=== PATIENT | female | born 1950 | race Caucasian/White ===

== ENCOUNTER 2022-12-26 08:58 | Outpatient (OUT) | payer MEDICARE, OTHER, SELFPAY ==
--- NOTE | 2022-12-26 09:02 | VEIN_ITS ---
Patient: JB ESTRELLA Exam Date: 12/26/2022 : 1950 Gender:F Ordering : DR REINA TAN M.D. Admission #: [id number] Family : Order #: [id number] CLICK HERE TO VIEW EXAM RADIOLOGY REPORT PROCEDURE: VC EXT VENOUS LT LIMITED COMPARISON: None. INDICATIONS: Phlebitis of superficial veins of lt lower extremity I80.02 TECHNIQUE: Lower extremity craven scale and Duplex Doppler evaluation of the deep venous system from the inguinal ligament through the calf veins. FINDINGS: REGION: Left lower extremity. THROMBI: Negative for DVT. COMPRESSIBILITY: Normal compressibility. FLOW: Areas of no flow. OTHER: CONCLUSION: 1. Resolution of previously seen left lower extremity deep vein thrombus. Dictated by: Aashish Gil M.D. on 12/27/2022 at 09:46 Approved by: Aashish Gil M.D. on 12/27/2022 at 09:48
--- NOTE | 2022-12-26 09:10 | VEIN_ITS ---
Patient: JB ESTRELLA Exam Date: 12/26/2022 : 1950 Gender:F Ordering : DR REINA TAN M.D. Admission #: [id number] Family : Order #: [id number] CLICK HERE TO VIEW EXAM RADIOLOGY REPORT PROCEDURE: VC [facility] - OFFICE VISIT FOLLOW UP COMPARISON: None. PROGRESS NOTES: The patient reports mild edema within lower left leg with slight improvement compared to prior several days. There has been interval reduction in varicosities. The patient has followed our recommendations to walk 20-30 minutes once or twice per day since the procedure. Physical exam demonstrates marked decrease in originally seen varicosities of the right and left leg. Persistent spider veins are identified along the legs bilaterally. Review of the ultrasound performed the same day demonstrates occlusive thrombus extending throughout the treated vein, see separate report, consistent with a successful ablation. No thrombus extending into or beyond the saphenofemoral junction. The patient expressed a desire to proceed with treatment of spider veins. The patient was informed that treatment was a process and would require several procedures/sessions. IMPRESSION: 1. Resolution of previously seen short segment of deep vein thrombus within the left leg. 2. Persistent spider veins and mild left lower extremity edema . PLAN: 1. Discontinuation of once a day aspirin since DVT has resolved. 2. Mild lower left leg edema. Patient will resume wearing of compression stocking to help relieve edema. 3. Sclerotherapy for bilateral spider veins. Nurse notes, history and physical were reviewed and confirmed, see attached forms. The nurse was present throughout the physical exam and consultation Dictated by: Aashish Gil M.D. on 12/27/2022 at 08:23 Approved by: Aashish Gil M.D. on 12/27/2022 at 08:27
== END 2022-12-26 08:59 ==
PROVIDERS: PCP Radiology Diagnostic Radiology; Visit Provider Radiology Diagnostic Radiology
DX: I83.813 Varicose veins of bilateral lower extremities with pain (principal); I87.8 Other specified disorders of veins; R60.0 Localized edema
CPT/HCPCS: 93971; G0463

== ENCOUNTER 2022-12-27 07:58 | Outpatient (OUT) | payer MEDICARE, OTHER, SELFPAY ==
--- NOTE | 2022-12-27 08:01 | VEIN_ITS ---
[address] [address] Patient Name: JB ESTRELLA MRN: [id number] date: 1950 Sex: F Assigned Patient Location: Current Patient Location: Accession/Order Number: [id number] Exam Date: 12/27/2022 08:01 Report Date: 12/27/2022 12:11 At the request of: REINA TAN Procedure: VC INJ Sclerosing SOLMULT Vein EXAMINATION: VC INJ Sclerosing SOLMULT Vein HISTORY: painful varicose veins I83.813 COMPARISON: No relevant comparison available. TECHNIQUE: The risks and benefits of the procedure were explained at length to the patient and informed written consent was obtained. Efe Hoskins RN was present and assisted. The procedure was performed under sterile technique. The patient's leg was wrapped with Coban and postprocedural verbal and written instructions provided. SCLEROSANT: 2 cc, 0.5% polidocanol VEIN(S) INJECTED: 22 veins in the left leg VISUALIZATION: Ultrasound was not used to visualize the sclerosant ANESTHESIA: Supercooled air COMPLICATIONS: None IMPRESSION: Technically successful sclerotherapy as described Electronically authenticated by: HARRISON GUADARRAMA Date: 12/27/2022 12:11
== END 2022-12-27 07:59 ==
PROVIDERS: PCP Radiology Diagnostic Radiology; Visit Provider Radiology Diagnostic Radiology
DX: I83.813 Varicose veins of bilateral lower extremities with pain (principal)
CPT/HCPCS: 36471

== ENCOUNTER 2022-12-30 11:58 | Outpatient (OUT) | payer MEDICARE, OTHER, SELFPAY ==
--- NOTE | 2022-12-30 12:03 | XR_ITS ---
The [address] [address] Patient Name: JB ESTRELLA MRN: [id number] date: 1950 Sex: F Assigned Patient Location: [facility] Current Patient Location: [facility] Accession/Order Number: [id number] Exam Date: 12/30/2022 12:10 Report Date: 12/30/2022 16:01 At the request of: TAHIR WHEELER Procedure: XR cervical spine w flex/ext EXAMINATION: XR cervical spine w flex/ext HISTORY: Cervical Spondylosis M47.812 COMPARISON: No relevant comparison available. FINDINGS: BONES: Reversal of the normal lordotic curvature of the cervical spine. Minimal grade 1 anterolisthesis of C4 on 5. No change in alignment during flexion and extension. Moderate degenerative facet arthropathy C2-3 through C6-7 resulting in bone encroachment on the neural foramen, left side greater than right. DISC SPACES: C3-4 mild narrowing. C4-5, C6-7 moderate narrowing. C5-6 marked narrowing. PARASPINOUS: Negative. No paraspinous abnormality is seen. OTHER: Negative. IMPRESSION: 1. Marked degenerative change of the cervical spine. 2. No appreciable acute abnormality. Electronically authenticated by: HARRISON GUADARRAMA Date: 12/30/2022 16:01
== END 2022-12-30 11:59 ==
PROVIDERS: PCP Internal Medicine; Visit Provider Internal Medicine
DX: M47.812 Spondylosis without myelopathy or radiculopathy, cervical region (principal)
CPT/HCPCS: 72052

== ENCOUNTER 2023-01-07 07:59 | Outpatient (OUT) | payer MEDICARE, OTHER, SELFPAY ==
--- NOTE | 2023-01-07 08:41 | VEIN_ITS ---
[address] [address] Patient Name: JB ESTRELLA MRN: [id number] date: 1950 Sex: F Assigned Patient Location: Current Patient Location: Accession/Order Number: [id number] Exam Date: 01/07/2023 08:00 Report Date: 01/07/2023 11:04 At the request of: REINA TAN Procedure: VC INJ Sclerosing SOLMULT Vein EXAMINATION: VC INJ Sclerosing SOLMULT Vein HISTORY: Pain due to varicose veins of bilateral legs I83.813 COMPARISON: No relevant comparison available. TECHNIQUE: The risks and benefits of the procedure were explained at length to the patient and informed written consent was obtained. Efe Hoskins RN was present and assisted. The procedure was performed under sterile technique. The patient's leg was wrapped with Coban and postprocedural verbal and written instructions provided. SCLEROSANT: 2 cc, 0.5% polidocanol VEIN(S) INJECTED: 32 veins in the right leg VISUALIZATION: Ultrasound was not used to visualize the sclerosant ANESTHESIA: Supercooled air COMPLICATIONS: None IMPRESSION: Technically successful sclerotherapy as described Electronically authenticated by: HARRISON GUADARRAMA Date: 01/07/2023 11:04
== END 2023-01-07 08:00 ==
PROVIDERS: PCP Internal Medicine; Visit Provider Radiology Diagnostic Radiology
DX: I83.813 Varicose veins of bilateral lower extremities with pain (principal)
CPT/HCPCS: 36471

== ENCOUNTER 2023-01-16 09:57 | Outpatient (OUT) | payer MEDICARE, OTHER, SELFPAY ==
--- NOTE | 2023-01-16 | VEIN_ITS ---
[address] [address] Patient Name: JB ESTRELLA MRN: [id number] date: 1950 Sex: F Assigned Patient Location: Current Patient Location: Accession/Order Number: [id number] Exam Date: 01/16/2023 09:30 Report Date: 01/16/2023 11:15 At the request of: REINA TAN Procedure: VC INJ Sclerosing SOLMULT Vein EXAMINATION: VC INJ Sclerosing SOLMULT Vein HISTORY: Pain due to varicose veins of bilateral legs I83.813 The risks and benefits of the procedure were explained at length to the patient and informed written consent was obtained. The procedure was performed under sterile technique. The patient's leg was wrapped with Coban and postprocedural verbal and written instructions provided. Efe Hoskins RN was present and assisted. SCLEROSANT: 2mL 0.5% Polidocanol. VEIN(S) INJECTED: 21 veins in the left leg VISUALIZATION: Ultrasound was not used to visualize the sclerosant ANESTHESIA: Supercooled air. COMPLICATIONS: None Electronically authenticated by: HARRISON GUADARRAMA Date: 01/16/2023 11:15
== END 2023-01-16 09:58 | disposition home or self-care (01) ==
LOC: VC 09:57
PROVIDERS: PCP Internal Medicine; Visit Provider Radiology Diagnostic Radiology
DX: I83.813 Varicose veins of bilateral lower extremities with pain (principal)
CPT/HCPCS: 36471

== ENCOUNTER 2023-01-24 06:44 | Outpatient (OUT) | payer MEDICARE, OTHER, SELFPAY ==
--- NOTE | 2023-01-24 06:48 | MM_ITS ---
Patient: JB ESTRELLA Exam Date: 01/24/2023 : 1950 Gender:F Ordering : DR Alden Jamison D.O. Admission #: [id number] Family : Order #: [id number] CLICK HERE TO VIEW EXAM RADIOLOGY REPORT PROCEDURE: MM TOMOSYNTHESIS SCREENING BI COMPARISON: MG MAMM SCREEN 3D TITA CAD, 01/17/2021. MG MAMM SCREEN 3D TITA CAD, 01/21/2022. INDICATIONS: Screening Calculator Name NCI Breast Cancer Risk Assessment Tool 5 Year Breast Cancer Risk 3.70% Lifetime Breast Cancer Risk 8.90% Personal Breast Cancer No Personal Ovarian Cancer No Treatments None Family Cancers Sister with breast cancer at age 51; Mother with lung cancer at age 62. LOCATION: [facility] BREAST COMPOSITION: Scattered areas fibroglandular density. FINDINGS: DIAGNOSTIC CATEGORY 2--BENIGN FINDING. NO CHANGE FROM COMPARISON. Scattered benign-appearing nodules are present. Scattered benign-appearing calcifications are present. Scattered benign-appearing lymph nodes are present. RIGHT BREAST: No significant suspicious finding. LEFT BREAST: No significant suspicious finding. RECOMMENDATIONS: ROUTINE MAMMOGRAM AND CLINICAL EVALUATION IN 12 MONTHS. PLEASE NOTE: A NORMAL MAMMOGRAM DOES NOT EXCLUDE THE POSSIBILITY OF BREAST CANCER. A CLINICALLY SUSPICIOUS PALPABLE LUMP SHOULD BE BIOPSIED. Dictated by: Gonzalo Joseph MD on 01/24/2023 at 08:28 Approved by: Gonzalo Joseph MD on 01/24/2023 at 09:03
== END 2023-01-24 06:45 | disposition home or self-care (01) ==
LOC: MAMMO 06:44
PROVIDERS: PCP Internal Medicine; Visit Provider Internal Medicine
DX: Z12.31 Encounter for screening mammogram for malignant neoplasm of breast (principal); Z80.3 Family history of malignant neoplasm of breast; Z80.1 Family history of malignant neoplasm of trachea, bronchus and lung
CPT/HCPCS: 77063; 77067

== ENCOUNTER 2023-03-30 12:07 | Emergency (ER) | payer MEDICARE, OTHER, SELFPAY ==
[2023-03-30 12:18] VITALS: BP 126/82; PULSE 85; RESP 18; TEMP 36.6; O2SAT 94; BMI 29.5
--- NOTE | 2023-03-30 12:27 | ED.GENADUL1 ---
HPI - General Adult General Chief complaint: Urogenital-Female Stated complaint: COUGH COVID+ Time Seen by Provider: 03/30/23 12:08 Source: patient Mode of arrival: walk-in History of Present Illness HPI narrative: patient developed dark urine 3 days ago - the same day she developed cough and muscle aches. She took a covid test this morning and tested positive. She continues to have dark urine so she came tot he ED to get evaluated. She denied and chest pain, shortness of breath and states her covid symptoms are very mild . No prior history of dark urine. No flank pain, abdominal pain, nausea or vomiting. She has some chronic urinary incontinence from a leaky bladder for which she sees a local urologist. Related Data Previous Rx's Medication Instructions Recorded ciprofloxacin HCl 500 mg tablet 500 mg PO BID #10 tabs 03/30/23 (Cipro) Allergies Allergy/AdvReac Type Severity Reaction Status Date / Time No Known Drug Allergies Allergy Verified 03/30/23 12:17 [facility] Social History Smoking status: Current every day smoker Exam Narrative Exam Narrative: Nurses notes and vital signs reviewed and patient is not hypoxic. afebrile General: Well-appearing and in no apparent distress. Skin: Warm, dry, no pallor noted. No rash. Head: Normocephalic, atraumatic. Neck: Supple, non-tender. No meningismus or cervical lymphadenopathy Eye: Pupils are equal, round and EOMI. No scleral icterus. Cardiovascular: Regular Rate and Rhythm without murmur, gallop or rub. Respiratory: No accessory muscle use or respiratory distress. Lungs are clear to auscultation, no wheezing, rales or rhonchi Chest Wall: no tenderness Back: No CVA tenderness Musculoskeletal: normal ROM GI: Abdomen is soft, non-distended. Normal bowel sounds. No masses appreciated. No tenderness to palpation. No rebound, guarding, or rigidity noted. Neurological: A&O x4. No cranial nerve dysfunction observed. No truncal ataxia. Moves all extremities. Sensation intact. Psychiatric: Cooperative and interactive. Normal mood and affect. Constitutional Vital Signs, click to edit/add: Last Vital Signs Temp 97.9 F 03/30/23 12:18 Pulse 85 03/30/23 12:18 Resp 18 03/30/23 12:18 BP 126/82 03/30/23 12:18 Pulse Ox 94 L 03/30/23 12:18 Course Vital Signs Vital signs: Vital Signs Temperature 97.9 F 03/30/23 12:18 Pulse Rate 85 03/30/23 12:18 Respiratory Rate 18 03/30/23 12:18 Blood Pressure 126/82 03/30/23 12:18 Pulse Oximetry 94 L 03/30/23 12:18 Temperature 97.9 F 03/30/23 12:18 Pulse Rate 85 03/30/23 12:18 Respiratory Rate 18 03/30/23 12:18 Blood Pressure 126/82 03/30/23 12:18 Pulse Oximetry 94 L 03/30/23 12:18 Medical Decision Making MDM Narrative Medical decision making narrative: urine obtained and sent for testing. blood drawn to check renal function. Patient has an acute UTI. BUN elevated at 25, normal Cr. Patient informed of results and discharged home with a prescription for Cipro. Patient advised to rest, stay at home, practice social distancing, take Motrin and Tylenol for pain and fever if not allergic, stay well hydrated with Gatorade or similar drinks if vomiting or eat as tolerated if not and take any meds as prescribed. Reviewed reasons to return including rapid increase in respiratory rate, shortness of breath, confusion, inability to keep down sips of swallowed liquids for more than 24 hours. Asked patient to encourage any ill contacts to stay home and practice similar advice. Lab Data Lab results reviewed: Yes I reviewed the patient's lab results Labs: Lab Results 03/30/23 03/30/23 Range/Units 12:30 12:35 Sodium 139 (136-145) mmol/L Potassium 3.8 (3.5-5.1) mmol/L Chloride 104 (98-107) mmol/L Carbon Dioxide 27.6 (21.0-32.0) mmol/L Anion Gap 11.2 BUN 25.0 H (7.0-18.0) mg/dL Creatinine 0.67 (0.55-1.02) mg/dL Est GFR ( Amer) >60 (>=60) Est GFR (Non-Af Amer) >60 (>=60) BUN/Creatinine Ratio 37.3 Glucose 96 (74-106) mg/dL Calcium 8.8 (8.5-10.1) mg/dL Urine Color Dk. yellow (YELLOW) Urine Clarity Clear (CLEAR) Urine pH 5.5 (5.0-9.0) Ur Specific [place] >=1.030 A (1.005-1.025) Urine Protein 100 A (NEG/TRACE) mg/dL Urine Glucose (UA) Negative (NEGATIVE) mg/dL Urine Ketones Trace A (NEGATIVE) mg/dL Urine Occult Blood Large A (NEGATIVE) Urine Nitrite Negative (NEGATIVE) Urine Bilirubin Moderate A (NEGATIVE) Urine Urobilinogen 4.0 A (0.2-1.0) EU/dL Ur Leukocyte Esterase Trace A (NEGATIVE) Urine RBC 50-75 A (0-2) #/HPF Urine WBC 2-5 A (NONE SEEN) #/HPF Ur Squamous Epith Cells Few A (NONE/RARE) #/LPF Urine Crystals None seen (None Seen) #/HPF Urine Bacteria Moderate A (NONE SEEN) #/HPF Urine Casts None seen (NONE SEEN) #/LPF Urine Mucus Trace A (NONE SEEN) Ur Culture Indicated? Yes Discharge Plan Discharge Chief Complaint: Urogenital-Female Clinical Impression: Urinary tract infection, COVID-19 Patient Disposition: Home, Self-Care Time of Disposition Decision: 13:14 Prescriptions / Home Meds: New ciprofloxacin HCl [Cipro] 500 mg tablet 500 mg PO BID Qty: 10 0RF Instructions: Urinary Tract Infection in Women (ED), COVID-19 (Coronavirus Disease 2019) (ED) Stand Alone Forms: Portal Instructions Referrals: Alden Jamison DO [Primary Care Provider] - 1 week
[2023-03-30 12:45] LABS: Bilirubin Urine MODERATE (NEGATIVE); Blood Urine LARGE (NEGATIVE); Clarity Urine CLEAR (CLEAR); Color Urine DK. YELLOW (YELLOW); Glucose Urine UA NEGATIVE (NEGATIVE); Ketones Urine TRACE mg/dL (NEGATIVE); Leukocyte Esterase Urine TRACE (NEGATIVE); Nitrite Urine NEGATIVE (NEGATIVE); Protein Urine 100 mg/dL (NEG/TRACE); Specific Gravity Urine >=1.030 (1.005-1.025); pH Urine 5.5 (5.0-9.0)
[2023-03-30 12:46] LABS: Urine Microscopic Indicated YES
[2023-03-30 12:51] LABS: Anion Gap 11.2; BUN Creatinine Ratio 37.3; Calcium 8.8 mg/dL (8.5-10.1); Carbon Dioxide 27.6 mmol/L (21.0-32.0); Chloride 104 mmol/L (98-107); Estimated GFR (African America >60 (>=60); Estimated GFR (Non-African Ame >60 (>=60); Glucose 96 mg/dL (74-106); Potassium 3.8 mmol/L (3.5-5.1); Sodium 139 mmol/L (136-145)
[2023-03-30 12:57] LABS: Bacteria Urine MODERATE #/HPF (NONE SEEN); Cast Seen? NONE SEEN #/LPF (NONE SEEN); Crystals Seen? None Seen #/HPF (None Seen); Mucus Urine TRACE (NONE SEEN); RBC Urine 50-75 #/HPF (0-2); Urine Culture Indicated YES
[2023-03-30 12:58] LABS: Squamous Epithelial Cell Urine FEW #/LPF (NONE/RARE)
== END 2023-03-30 13:22 | disposition home or self-care (01) ==
PROVIDERS: Emergency Provider Emergency Medicine; PCP Internal Medicine
DX: N39.0 Urinary tract infection, site not specified (principal); U07.1 COVID-19; F17.210 Nicotine dependence, cigarettes, uncomplicated
CPT/HCPCS: 36415; 80048; 81001; 87086; 99283

== ENCOUNTER 2023-04-15 12:50 | Emergency (ER) | payer MEDICARE, OTHER, SELFPAY ==
[2023-04-15 12:54] VITALS: BP 168/80; PULSE 57; RESP 18; TEMP 37.1; O2SAT 99; BMI 36.4
[2023-04-15 13:10] LABS: Bilirubin Urine NEGATIVE (NEGATIVE); Blood Urine LARGE (NEGATIVE); Color Urine LT. YELLOW (YELLOW); Glucose Urine UA NEGATIVE (NEGATIVE); Ketones Urine TRACE mg/dL (NEGATIVE); Leukocyte Esterase Urine TRACE (NEGATIVE); Nitrite Urine NEGATIVE (NEGATIVE); Protein Urine NEGATIVE (NEG/TRACE); Specific Gravity Urine >=1.030 (1.005-1.025); Urobilinogen Urine 0.2 EU/dL (0.2-1.0); pH Urine 5.5 (5.0-9.0)
[2023-04-15 13:12] LABS: Clarity Urine SLIGHTLY CLOUDY (CLEAR)
--- NOTE | 2023-04-15 13:17 | XR_ITS ---
The [address] [address] Patient Name: JB ESTRELLA MRN: [facility]:[id number] date: 1950 Sex: F Assigned Patient Location: ER Current Patient Location: ER Accession/Order Number: [id number] Exam Date: 04/15/2023 13:50 Report Date: 04/15/2023 14:20 At the request of: ABIGAIL CANNON Procedure: XR lumbar spine 2-3V EXAM: XR lumbar spine 2-3V HISTORY: atraumatic pain COMPARISON: None. TECHNIQUE: 2 views FINDINGS/IMPRESSION: Satisfactory alignment. Maintained vertebral body heights. Multilevel endplate degenerative changes and disc disease. No acute fracture or significant subluxation. Scattered calcified atherosclerotic disease of aorta. Electronically authenticated by: DALIA HERRON Date: 04/15/2023 14:20
[2023-04-15 13:18] LABS: Bacteria Urine NONE SEEN #/HPF (NONE SEEN); Calcium Oxalate Crystals Urine MODERATE; Cast Seen? NONE SEEN #/LPF (NONE SEEN); Crystals Seen? Seen #/HPF (None Seen); Mucus Urine NONE SEEN (NONE SEEN); RBC Urine 0-2 #/HPF (0-2); Squamous Epithelial Cell Urine RARE #/LPF (NONE/RARE); Urine Culture Indicated NO; WBC Urine 0-2 #/HPF (NONE SEEN)
--- NOTE | 2023-04-15 13:18 | ED_ITS ---
HPI - General Adult General Chief complaint: Urogenital-Female Stated complaint: BACK PAIN Time Seen by Provider: 04/15/23 12:58 Source: patient Mode of arrival: walk-in Limitations: no limitations History of Present Illness HPI narrative: 73-year-old female presented to the emergency Department for left lower back pain. She recently completed a five day course of Cipro for a urinary tract infection and her symptoms seemed to have resolved. Now she is urinating frequently and has this left lower back pain. No trauma or unusual activity and it doesn't radiate and it's moderate. She's had these symptoms for one or two days. Related Data Previous Rx's Medication Instructions Recorded ibuprofen 800 mg tablet 800 mg PO Q8H PRN pain #20 tabs 04/15/23 methocarbamol 500 mg tablet 500 mg PO Q8H PRN pain #20 tabs 04/15/23 Allergies Allergy/AdvReac Type Severity Reaction Status Date / Time No Known Drug Allergies Allergy Verified 04/15/23 12:57 Review of Systems ROS Narrative A ten point review of systems is negative except as noted above. PFSH PFSH Social History Smoking status: Current every day smoker Exam Narrative Exam Narrative: Nurses note and vital signs reviewed and patient is not hypoxic. General: The patient appears well and in no apparent distress. Skin: Warm, dry, no pallor noted. There is no rash noted. Head: Normocephalic, atraumatic Eye: Normal conjunctiva, no drainage Ears, Nose, Mouth, and Throat: oral mucosa is moist. Nares patent. Mouth without vesicles. Ear canals patent. Tm's without Erythema Cardiovascular: Regular Rate and Rhythm Respiratory: Patient is in no distress, no accessory muscle use, lungs are clear to auscultation, no wheezing, rales or rhonchi Back: non-tender, no CVA tenderness bilaterally to percussion. no bruise rash or abrasion present. GI: soft and nontender Musculoskeletal: The patient has no evidence of calf tenderness, no pitting edema, symmetrical pulses noted bilaterally Neurological: A&O, normal speech Psychiatric: Cooperative Constitutional Vital Signs, click to edit/add: Last Vital Signs Temp 98.7 F 04/15/23 12:54 Pulse 57 L 04/15/23 12:54 Resp 18 04/15/23 12:54 BP 168/80 H 04/15/23 12:54 Pulse Ox 99 04/15/23 12:54 O2 Del Method Room Air 04/15/23 12:54 Course Vital Signs Vital signs: Vital Signs Temperature 98.7 F 04/15/23 12:54 Pulse Rate 57 L 04/15/23 12:54 Respiratory Rate 18 04/15/23 12:54 Blood Pressure 168/80 H 04/15/23 12:54 Pulse Oximetry 99 04/15/23 12:54 Oxygen Delivery Method Room Air 04/15/23 12:54 Temperature 98.7 F 04/15/23 12:54 Pulse Rate 57 L 04/15/23 12:54 Respiratory Rate 18 04/15/23 12:54 Blood Pressure 168/80 H 04/15/23 12:54 Pulse Oximetry 99 04/15/23 12:54 Oxygen Delivery Method Room Air 04/15/23 12:54 Medical Decision Making MDM Narrative Medical decision making narrative: her urinalysis is negative, no evidence of urinary tract infection. Lumbar x- rays are nonspecific, may mild degenerative changes present. At this point I do not suspect a kidney stone. Her pain is quite low and in a very small localized area. She has no blood in her urine. Treatment diagnosis and follow-up were discussed with the patient and her . My clinical impression this point is that she has muscular pain. Differential Diagnosis Differential Diagnosis: urinary tract infection, muscle strain, compression fracture, kidney stone Lab Data Lab results reviewed: Yes I reviewed the patient's lab results Labs: Lab Results 04/15/23 Range/Units 13:03 Urine Color Lt. yellow (YELLOW) Urine Clarity Slightly cloudy A (CLEAR) Urine pH 5.5 (5.0-9.0) Ur Specific [place] >=1.030 A (1.005-1.025) Urine Protein Negative (NEG/TRACE) mg/dL Urine Glucose (UA) Negative (NEGATIVE) mg/dL Urine Ketones Trace A (NEGATIVE) mg/dL Urine Occult Blood Large A (NEGATIVE) Urine Nitrite Negative (NEGATIVE) Urine Bilirubin Negative (NEGATIVE) Urine Urobilinogen 0.2 (0.2-1.0) EU/dL Ur Leukocyte Esterase Trace A (NEGATIVE) Urine RBC 0-2 (0-2) #/HPF Urine WBC 0-2 A (NONE SEEN) #/HPF Ur Squamous Epith Cells Rare (NONE/RARE) #/LPF Urine Crystals Seen A (None Seen) #/HPF Calcium Oxalate Crystal Moderate Urine Bacteria None seen (NONE SEEN) #/HPF Urine Casts None seen (NONE SEEN) #/LPF Urine Mucus None seen (NONE SEEN) Ur Culture Indicated? No Imaging Data lumbar x-ray: Radiologist's impression: Procedure: XR lumbar spine 2-3V EXAM: XR lumbar spine 2-3V HISTORY: atraumatic pain COMPARISON: None. TECHNIQUE: 2 views FINDINGS/IMPRESSION: Satisfactory alignment. Maintained vertebral body heights. Multilevel endplate degenerative changes and disc disease. No acute fracture or significant subluxation. Scattered calcified atherosclerotic disease of aorta. Electronically authenticated by: DALIA HERRON Date: 04/15/2023 14:20 Discharge Plan Discharge Chief Complaint: Urogenital-Female Clinical Impression: Low back pain Patient Disposition: Home, Self-Care Time of Disposition Decision: 14:45 Condition: Good Mode of Transportation: Private Vehicle Prescriptions / Home Meds: New methocarbamol 500 mg tablet 500 mg PO Q8H PRN (Reason: pain) Qty: 20 0RF ibuprofen 800 mg tablet 800 mg PO Q8H PRN (Reason: pain) Qty: 20 0RF Instructions: Back Pain (ED) Stand Alone Forms: Portal Instructions Referrals: lAden Jamison DO [Primary Care Provider] - 1 week Discharge Date/Time: 04/15/23 14:52
[2023-04-15] MEDS: KETOROLAC TROMETHAMINE 60 MG/2 ML VIAL IM (13:29)
== END 2023-04-15 14:52 | disposition home or self-care (01) ==
PROVIDERS: Emergency Provider Emergency Medicine; PCP Internal Medicine
DX: M54.50 Low back pain, unspecified (principal); Z87.440 Personal history of urinary (tract) infections; F17.210 Nicotine dependence, cigarettes, uncomplicated
CPT/HCPCS: 72100; 81001; 96372; 99285

== ENCOUNTER 2023-04-16 09:31 | Outpatient (OUT) | payer MEDICARE, OTHER, SELFPAY ==
--- NOTE | 2023-04-16 09:32 | VEIN_ITS ---
[address] [address] Patient Name: JB ESTRELLA MRN: [id number] date: 1950 Sex: F Assigned Patient Location: Current Patient Location: Accession/Order Number: [id number] Exam Date: 04/16/2023 09:35 Report Date: 04/16/2023 10:56 At the request of: REINA TAN Procedure: VC INJ Sclerosing SOLMULT Vein EXAMINATION: VC INJ Sclerosing SOLMULT Vein HISTORY: [id number] The risks and benefits of the procedure were explained at length to the patient and informed written consent was obtained. The procedure was performed under sterile technique. The patient's leg was wrapped with Coban and postprocedural verbal and written instructions provided. Efe Hoskins RN was present and assisted. SCLEROSANT: 2mL 0.5% Polidocanol. VEIN(S) INJECTED: 22 veins in the right leg. VISUALIZATION: Ultrasound was not used to visualize the sclerosant. ANESTHESIA: Supercooled air. COMPLICATIONS: None. Electronically authenticated by: HARRISON GUADARRAMA Date: 04/16/2023 10:56
== END 2023-04-16 09:32 | disposition home or self-care (01) ==
LOC: VC 09:31
PROVIDERS: PCP Internal Medicine; Visit Provider Radiology Diagnostic Radiology
DX: I83.813 Varicose veins of bilateral lower extremities with pain (principal)
CPT/HCPCS: 36471

== ENCOUNTER 2023-04-25 07:38 | Outpatient (OUT) | payer MEDICARE, OTHER, SELFPAY ==
--- NOTE | 2023-04-25 07:44 | CT_ITS ---
The [address] [address] Patient Name: JB ESTRELLA MRN: [facility]:[id number] date: 1950 Sex: F Assigned Patient Location: CT Current Patient Location: CT Accession/Order Number: [id number] Exam Date: 04/25/2023 08:50 Report Date: 04/25/2023 10:55 At the request of: TAHIR WHEELER Procedure: CT abdomen pelvis w con EXAM: CT abdomen pelvis w con HISTORY: Acute Left Sided Low Back Pain M54.50, Gross Hematuria R31.0 COMPARISON: None. TECHNIQUE: Axial CT images were obtained of the abdomen and pelvis with intravenous contrast. Postcontrast images were obtained in the venous and delayed phases. Multiplanar reconstructions were performed. ABDOMEN/PELVIS FINDINGS: Lower Chest: Bibasilar atelectasis or scarring is present. Liver: Normal enhancement and contour. There is a tiny hypodense lesion in the left hepatic lobe, most likely representing a small cyst or hemangioma. Biliary/Gallbladder: Prior cholecystectomy. Pancreas: Unremarkable. Spleen: There are multiple punctate calcifications in the spleen, likely due to remote granulomatous disease. Adrenal Glands: Unremarkable. Kidneys: Mild left-sided hydronephrosis with an obstructive calculus at the ureterovesicular junction measuring 2.7 mm. A couple of small bilateral renal cysts are present. Gastrointestinal/Peritoneum: No acute abnormality. The appendix is unremarkable. No free air or free fluid. Vascular: Unremarkable. Lymph Nodes: No enlarged lymph nodes by CT size criteria. Pelvic Organs: Unremarkable. Bladder: Unremarkable. Bones: No acute osseous abnormality. Scoliosis present with extensive multilevel degenerative changes in the visualized spine. Soft tissues: Unremarkable. CT/CT abdomen pelvis w con IMPRESSION: 1. Mild left-sided obstructive uropathy with a 2.7 mm calculus at the ureterovesicular junction. 2. Prior cholecystectomy. Electronically authenticated by: RAPHAEL GONZÁLES Date: 04/25/2023 10:55
== END 2023-04-25 07:39 | disposition home or self-care (01) ==
LOC: CT 07:38
PROVIDERS: PCP Internal Medicine; Visit Provider Internal Medicine
DX: M54.50 Low back pain, unspecified (principal); R31.0 Gross hematuria; N20.1 Calculus of ureter; N13.9 Obstructive and reflux uropathy, unspecified; Z90.49 Acquired absence of other specified parts of digestive tract
CPT/HCPCS: 74177; Q9967

== ENCOUNTER 2023-05-12 07:49 | Outpatient (OUT) | payer MEDICARE, OTHER, SELFPAY ==
--- NOTE | 2023-05-12 07:55 | CT_ITS ---
The [address] [address] Patient Name: JB ESTRELLA MRN: [facility]:[id number] date: 1950 Sex: F Assigned Patient Location: CT Current Patient Location: CT Accession/Order Number: [id number] Exam Date: 05/12/2023 08:06 Report Date: 05/12/2023 08:46 At the request of: ANY BENNETT Procedure: CT abdomen pelvis wo con EXAM: CT abdomen pelvis wo con HISTORY: Ureteral Stone With Hydronephrosis N13.2 COMPARISON: CT abdomen and pelvis 04/25/2023.. TECHNIQUE: Axial soft tissue windows of the abdomen and pelvis with coronal and sagittal reformats. CT dose reduction technique was used including Automated Exposure Control. Findings: Lack of intravenous contrast limits evaluation. Lingular benign calcified granuloma. ABDOMEN: Within segment 3 of the liver there is a 0.3 cm low-attenuation lesion, too small to characterize. There is scattered hepatic and splenic calcifications likely relating to prior granulomatous disease. The gallbladder is surgically absent. The pancreas and adrenal glands are unremarkable. Punctate nonobstructing bilateral renal stones. No renal collecting system or ureteral dilatation. Bilateral renal cysts. The largest is within the right kidney measuring 1.5 cm. The bilateral ureters are nondilated. Evaluation of the bowel is limited given the absence of oral contrast. No bowel obstruction. The appendix is nondilated. The aorta is normal caliber. Mild atherosclerotic disease. No enlarged abdominal lymph nodes or free abdominal fluid. Small fat-containing umbilicus hernia. Pelvis: Small focus of gas within the bladder lumen. No calculi. The uterus is present and unremarkable within the limits of CT. No enlarged pelvic lymph nodes or free pelvic fluid. Moderate levoconvex scoliosis. Multilevel mild to moderate degenerative spondylosis. CT/CT abdomen pelvis wo con IMPRESSION: 1. Punctate nonobstructing bilateral renal stones. 2. Small focus of gas within the bladder lumen may relate to recent instrumentation. In a setting lacking this history, infection can have a similar appearance. Electronically authenticated by: ADRIANA MUHAMMAD Date: 05/12/2023 08:46
== END 2023-05-12 07:50 | disposition home or self-care (01) ==
LOC: CT 07:52
PROVIDERS: PCP Internal Medicine; Visit Provider Urology
DX: N13.2 Hydronephrosis with renal and ureteral calculous obstruction (principal)
CPT/HCPCS: 74176

== ENCOUNTER 2023-05-27 09:16 | Outpatient (OUT) | payer MEDICARE, OTHER, SELFPAY ==
--- NOTE | 2023-05-27 | VEIN_ITS ---
[address] [address] Patient Name: JB ESTRELLA MRN: [id number] date: 1950 Sex: F Assigned Patient Location: Current Patient Location: Accession/Order Number: [id number] Exam Date: 05/27/2023 09:15 Report Date: 05/27/2023 10:39 At the request of: REINA TAN Procedure: VC INJ Sclerosing SOLMULT Vein EXAMINATION: VC INJ Sclerosing SOLMULT Vein HISTORY: Pain due to varicose veins of bilateral legs I83.813 COMPARISON: No relevant comparison available. TECHNIQUE: The risks and benefits of the procedure were explained at length to the patient and informed written consent was obtained. Efe Hoskins was present and assisted. The procedure was performed under sterile technique. The patient's leg was wrapped with Coban and postprocedural verbal and written instructions provided. SCLEROSANT: 4 cc, 0.5% polidocanol VEIN(S) INJECTED: 23 veins in the left leg VISUALIZATION: Ultrasound was not used to visualize the sclerosant ANESTHESIA: Supercooled air COMPLICATIONS: None VEIN/VC INJ Sclerosing SOLMULT Vein IMPRESSION: Technically successful sclerotherapy as described Electronically authenticated by: REINA TAN Date: 05/27/2023 10:39
== END 2023-05-27 09:17 | disposition home or self-care (01) ==
LOC: VC 09:16
PROVIDERS: PCP Internal Medicine; Visit Provider Radiology Diagnostic Radiology
DX: I83.819 Varicose veins of unspecified lower extremity with pain (principal)
CPT/HCPCS: 36471

== ENCOUNTER 2023-06-09 07:42 | Outpatient (OUT) | payer MEDICARE, OTHER, SELFPAY ==
--- NOTE | 2023-06-09 07:45 | XR_ITS ---
[address] [address] Patient Name: JB ESTRELLA MRN: [id number] date: 1950 Sex: F Assigned Patient Location: [facility] Current Patient Location: [facility] Accession/Order Number: [id number] Exam Date: 06/09/2023 08:04 Report Date: 06/09/2023 08:19 At the request of: TAHIR WHEELER Procedure: XR DEXA axial skeleton EXAMINATION: XR DEXA axial skeleton HISTORY: Osteopenia Of Lumbar Spine M85.88 COMPARISON: DEXA bone densitometry 03/09/2019 TECHNIQUE: Dual-energy X-ray absorptiometry (DXA) was performed. FINDINGS: FOREARM ANALYSIS: Average bone mineral density is 0.565 g/cm2. T-score (standard deviation relative to young adult mean): -2.1 . -5.3% change since prior study. HIP ANALYSIS: Lowest bone mineral density is within the femoral neck, 0.802 g/cm2. T-score (standard deviation relative to young adult mean): -1.7 . -1.6% change since prior study. XR/XR DEXA axial skeleton IMPRESSION: [employer] Classification: Osteopenia - Moderate Fracture Risk Electronically authenticated by: HARRISON GUADARRAMA Date: 06/09/2023 08:19
--- OUTSIDE RECORDS SUMMARY | 2023-07-15 17:35 | XMS_ITS | CCD ---
Author Name Unknown Address [address] [facility] [facility] [address] [place] [address] Organization [facility] Care Team Providers Care Disassembler Product Name Role Phone ALDEN JAMISON Primary Care Physician Alden Jmaison DOMINICK, DR REINA Delgado Attending Unavailable WEST, DR REINA Delgado Admitting Unavailable BALL, DR HARO Primary Care Unavailable WEST, DR REINA Delgado Consulting Unavailable ELICEOEBMARY BETH, DR AASHISH Zaldivar Consulting Unavailable BALL, DR HARO Primary Care Unavailable WEST, DR REINA Delgado Attending Unavailable WEST, DR REINA Delgado Admitting Unavailable WEST, DR REINA Delgado Attending Unavailable WEST, DR REINA Delgado Admitting Unavailable WEST, DR REINA Delgado Consulting Unavailable BALL, DR HARO Primary Care Unavailable ELICEOEBMARY BETH, DR AASHISH Zaldivar Consulting Unavailable WEST, DR REINA Delgado Attending Unavailable WEST, DR REINA Delgado Admnilda Unavailable WEST, DR REINA Delgado Consulting Unavailable BALL, DR HARO Primary Care Unavailable ELICEOEBMARY BETH, DR AASHISH Zaldivar Consulting Unavailable WEST, DR REINA Delgado Attending Unavailable WEST, DR REINA Delgado Admnilda Unavailable WEST, DR REINA Delgado Consulting Unavailable BALL, DR HARO Primary Care Unavailable WEST, DR REINA Delgado Admnilda Unavailable WEST, DR REINA Delgado Consulting Unavailable BALL, DR HARO Primary Care Unavailable WEST, DR REINA Delgado Attending Unavailable ZIEBMARY BETH, DR AASHISH Zaldivar Consulting Unavailable MISC, DR CASEY Attending Unavailable BALL, DR HARO Primary Care Unavailable REQUEST, DR ACEVEDO LISTED Consulting Unavaila ble MISC, DR CASEY Admitting Unavailable MISC, DR CASEY Admitting Unavailable MISC, DR CASEY Attending Unavailable BALL, DR HARO Primary Care Unavailable BALL, DR HARO Primary Care Unavailable BALL, DR HARO Consulting Unavailable BALL, DR HARO Attending Unavailable BALL, DR HARO Admitting Unavailable WEST, DR REINA Delgado Consulting Unavailable WEST, DR REINA Deglado Admitting Unavailable WEST, DR REINA Delgado Consulting Unavailable BALL, DR HARO Primary Care Unavailable WEST, DR REINA Delgado Attending Unavailable WEST, DR REINA Delgado Admitting Unavailable WEST, DR REINA Delgado Consulting Unavailable BALL, DR HARO Primary Care Unavailable DOMINICK, DR REINA Delgado Attending Unavailable CHIARA, DR AASHISH Zaldivar Consulting Unavailable DOMINICK, DR REINA Delgado Attending Unavailable DOMINICK, DR REINA Delgado Admitting Unavailable DOMINICK, DR REINA Delgado Consulting Unavailable SUMMER, DR HARO Primary Care Unavailable Ramila Pradhan Attending Unavailable Ramila Pradhan Attending Unavailable DEANA LOMAS Attending Unavailable GAIL NAVA Attending Unavailable Allergies Allergy Classification Reported Allergen(s) Allergy Type Date of Onset Reaction(s) Facility (5 sources) Latex; Translations: [latex] Drug allergy 11-13-2015 Eruption of skin (disorder) [facility] Medications Current Medications Medication Drug Class(es) Dates Sig (Normalized) Sig (Original) aspirin 81 mg delayed release oral tablet (11 sources) Platelet Aggregation Inhibitor, Nonsteroidal Anti-inflammatory Drug Start: 03-20-2020 take 1 tablet by mouth once daily aspirin 81 mg Oral EC Tab 81 mg = 1 tab(s), Oral, Daily, Refills(s) 0, Prophylaxis Start Date: 03/20/20 Status: Ordered Start: 03-20-2020 take 1 tablet by aamir th once daily aspirin 81 mg Oral EC Tab 81 mg = 1 tab(s), Oral, Daily, Refills(s) 0, Prophylaxis Start Date: 03/20/20 Status: Ordered take 1 tablet by aamir th every twenty-four hours Aspirin 325 MG 1 tablet Orally Once a day Active bacillus coagulans [id number] unt / inulin 250 mg oral capsule (2 sources) Start: 03-20-2020 take 1 capsule by mouth once daily Probiotic Formula (Bacillus Coagulans) oral capsule 1 cap(s), Oral, Daily, Refill(s) 0, Prophylaxis Start Date: 03/20/20 Status: Ordered Calcium Citrate / Vitamin D (5 sources) Start: 03-20-2020 take 1 tablet by mouth once daily calcium-vitamin D 1 tab, Oral, Daily, Refill(s) 0, Prophylaxis Start Date: 03/20/20 Status: Ordered docusate sodium 100 mg oral capsule (5 sources) Start: 03-20-2020 take 1 capsule by mouth twice daily Colace 100 mg Cap 100 mg = 1 cap(s), Oral, BID, # 20 cap(s), Refills(s) 0, Constipation Start Date: 03/20/20 Status: Ordered krill oil 500 mg oral capsule (2 sources) Start: 03-20-2020 take 1 capsule by mouth once daily Nature's Bounty Red Krill Oil 500 mg oral capsule 1 cap, Oral, Daily, Refill(s) 0, Prophylaxis Start Date: 03/20/20 Status: Ordered meloxicam 15 mg oral tablet (7 sources) Nonsteroidal Anti-inflammatory Drug Start: 05-07-2023 meloxicam 15 mg Tab Refills(s) 0 Start Date: 05/07/23 Status: Ordered Start: 12-30-2022 take 1 tablet by aamir th every twenty-four hours Meloxicam 15 MG 1 tablet Orally Once a day for 30 days Dec, Active Nature's Bounty Red Krill Oil (4 sources) Start: 06-06-2021 Nature's Bount y Red Krill Oil 350 mg, Oral Start Date: 06/06/21 Status: Ordered Nature's Bounty Red Krill Oil 500 mg oral capsule (3 sources) Start: 03-20-2020 take 1 capsule by mouth once daily Nature's Bounty Red Krill Oil 500 mg oral capsule 1 cap, Oral, Daily, Refill(s) 0, Prophylaxis Start Date: 03/20/20 Status: Ordered potassium chloride 1.33 meq oral tablet (5 sources) Start: 03-20-2020 take 1 tablet by mouth once daily potassium chloride 99 mg oral tablet 99 mg = 1 tab(s), Oral, Daily, # 100 tab(s), Refills(s) 0, Prophylaxis Start Date: 03/20/20 Status: Ordered Start: 03-20-2020 take 1 tablet by aamir th once daily potassium chloride 99 mg oral tablet 99 mg = 1 tab(s), Oral, Daily, # 100 tab(s), Refills(s) 0, Prophylaxis Start Date: 03/20/20 Status: Ordered Probiotic Formula (Bacillus Coagulans) oral capsule (2 sources) Start: 03-20-2020 take 1 capsule by mouth once daily Probiotic Formula (Bacillus Coagulans) oral capsule 1 cap(s), Oral, Daily, Refill(s) 0, Prophylaxis Start Date: 03/20/20 Status: Ordered tiZANidine 2 mg oral tablet (7 sources) Central alpha-2 Adrenergic Agonist Start: 05-07-2023 tiZANidine 2 mg Tab Refills(s) 0 Start Date: 05/07/23 Status: Ordered Start: 12-30-2022 take 1 tablet by aamir th once at bedtime as needed tiZANidine HCl 2 MG 1 tablet as needed Orally q HS for 30 days Dec, Active Vitamin D3 (5 sources) Start: 06-06-2021 Vitamin D3 125 mcg Start Date: 06/06/21 Status: Ordered Womens Pack oral tablet (5 sources) Start: 03-20-2020 take 1 tablet by mouth once daily Womens Pack oral tablet 1 tab(s), Oral, Daily, Refill(s) 0, Prophylaxis Start Date: 03/20/20 Status: Ordered Completed/Discontinued Medications Medication Drug Class(es) Dates Sig (Normalized) Sig (Original) Vitamin D 1000 intl units Tab (4 sources) Start: 03-20-2020 take 1 tablet by mouth once daily Vitamin D 1000 intl units Tab 1,000 International_Unit = 1 tab(s), Oral, Daily, # 30 tab(s), Refills(s) 0, Prophylaxis Start Date: 03/20/20 Status: Ordered Problems Active Problems Problem Classification Problem Date Documented Da te Episodic/Chronic Acute bronchitis (8 sources) Acute bronchitis; Translations: [Acute bronchitis due to other specified organisms] Episodic Calculus of urinary tract (2 sources) Kidney stone; Translations: [Ureteric stone] 05-07-2023 Episodic Deficiency and other anemia (5 sources) Anemia 06-06-2021 Episodic Deficiency and other anemia (8 sources) Microcytic hypochromic anemia; Translations: [Iron deficiency anemia, unspecified] Episodic Diseases of mouth; excluding dental (1 source) Dry mouth, unspecified Episodic Gastrointestinal hemorrhage (8 sources) Rectal hemorrhage; Translations: [Hemorrhage of anus and rectum] Episodic Genitourinary symptoms and ill-defined conditions (17 sources) Mixed incontinence; Translations: [Incontinence] Onset: 2 Chronic Genitourinary symptoms and ill-defined conditions (9 sources) Nocturia; Translations: [Nocturia] Onset: 2 Episodic Intracranial injury (1 source) Concussion without loss of consciousness, initial encounter Episodic Osteoarthritis (13 sources) Arthritis; Translations: [Arthritis of left knee] 06-06-2021 Chronic Other bone disease and musculoskeletal deformities (8 sources) Other specified disorders of bone density and structure, other site; Translations: [Osteopenia of lumbar spine] Episodic Other diseases of kidney and ureters (1 source) Urinary tract obstruction; Translations: [Hydronephrosis with renal and ureteral calculous obstruction] Onset: 3 Episodic Other diseases of veins and lymphatics (8 sources) Peripheral venous insufficiency; Translations: [Venous insufficiency (chronic) (peripheral)] Episodic Other nutritional; endocrine; and metabolic disorders (1 source) Obese class II; Translations: [Body mass index (BMI) 36.0-36.9, adult] Onset: 2 Chronic Other nutritional; endocrine; and metabolic disorders (2 sources) Body mass index 30+ - obesity 05-01-2022 Chronic Phlebitis; thrombophlebitis and thromboembolism (8 sources) Phlebitis and thrombophlebitis of superficial vessels of right lower extremity; Translations: [Phlebitis and thrombophlebitis of superficial vessels of left lower extremity] Onset: 3 Episodic Residual codes; unclassified (8 sources) Postmenopausal state; Translations: [Asymptomatic menopausal state] Episodic Screening and history of mental health and substance abuse codes (5 sources) Ex-smoker 06-06-2021 Episodic Spondylosis; intervertebral disc disorders; other back problems (7 sources) Cervical spondylosis; Translations: [Spondylosis without myelopathy or radiculopathy, cervical region] Chronic Spondylosis; intervertebral disc disorders; other back problems (1 source) Torticollis Episodic Sprains and strains (1 source) Strain of muscle, fascia and tendon at neck level, initial encounter Episodic Substance-related disorders (8 sources) Tobacco user; Translations: [Nicotine dependence, cigarettes, in remission] Chronic Superficial injury; contusion (2 sources) Contusion of right hand, initial encounter; Translations: [Contusion of left knee, initial encounter] Episodic Unclassified (5 sources) Asymptomatic microscopic hematuria 06-06-2021 Unclassified (1 source) Obstructive hydronephrosis 05-07-2023 Varicose veins of lower extremity (4 sources) Varicose veins of bilateral lower extremities with pain; Translations: [VARICOSE VNS TITA LOW EXTREM W/PAIN] Onset: 3 Episodic Past or Other Problems Problem Classification Problem Date Documented Da te Episodic/Chronic Other screening for suspected conditions (not mental disorders or infectious disease) (4 sources) Encounter for screening mammogram for malignant neoplasm of breast; Translations: [ENC SCR MAMMO MALIG NEOPLASM BREAST] Onset: 01-21-2022 Episodic Residual codes; unclassified (1 source) Family history of malignant neoplasm of breast; Translations: [FAMILY HX MALIG NEOPLASM OF BREAST] Onset: 01-24-2022 Episodic Residual codes; unclassified (1 source) Family history of malignant neoplasm of trachea, bronchus and lung; Translations: [FAM HX MALIG NEOPLSM TRACH BRON LNG] Onset: 01-24-2022 Episodic Unclassified (1 source) Acute left-sided low back pain without sciatica M54.50 Results Test Name Value Interpretation Reference Range Facil ity RAD - CT Reporton 05-12-2023 RAD - CT Report [id number] [facility] Reminderson 05-12-2023 Reminders - From: Angela Henriquez To: EU - Recalls Lue; Sent: 05/12/2023 11:22:11 EDT Show up: 03/28/2024 11:22:00 EDT Subject: KUB/JAK Reminder/Recall to be scheduled prior to patients 1 yr follow up 05/12/24 -patient uses [facility] Ambulatory Visit Summaryon 1 Ambulatory Visit Summary JB ESTRELLA :1950 Visit Date:05/07/2023 Ambulatory Visit Instructions Your Diagnosis Mixed incontinence Nocturia Asymptomatic microscopic hematuria Ureteral stone with hydronephrosis Tests Performed Urnls Dip Stick Auto w/o Microscopy POC 87[address] CT Abdomen/Pelvis w/o Contrast -- Results Pending -- Please visit your patient portal for your results or contact your primary care physician. Your Care Team Attending Physician - Lorne GONZALEZ, Ramila Pascal Primary Care Physician - ALDEN JAMISON DO This Is Your Medications List Contact prescribing physician if questions or concerns aspirin (aspirin 81 mg Oral EC Tab) calcium-vitamin D cholecalciferol (Vitamin D3) docusate (Colace 100 mg Cap) meloxicam (meloxicam 15 mg Tab) multivitamin with minerals (Womens Pack oral tablet) omega-3 polyunsaturated fatty acids (Nature's Bounty Red Krill Oil 500 mg oral capsule) potassium chloride (potassium chloride 99 mg oral tablet) tizanidine (tiZANidine 2 mg Tab) Procedures Performed Cataract extraction and insertion of intraocular lens (2020), Cataract extraction and insertion of intraocular lens (03/21/2020), Cholecystectomy, Procedure on knee. Discharge Vitals Heart Rate (Peripheral) 70 Respiratory Rate 16 Blood Pressure 127/73 Height 162 cm Height 64 in Weight 97 kg Weight 213.4 lb BMI 36.96 What to do next You Need to Schedule the Following Appointments Follow Up with Lorne GONZALEZ, TEDDY Gonzalez, URO When: Comments: Sched Lt Ureteroscopy/LaserLitho Where: Medications What How Much When Instructions Unchanged aspirin (aspirin 81 mg Oral EC Tab) 1 Tablets By Mouth Every day Contact prescribing physician if questions or concerns Unchanged calcium-vitamin D 1 tab By Mouth Every day Contact prescribing physician if questions or concerns Unchanged cholecalciferol (Vitamin D3) 125 Microgram Contact prescribing physician if questions or concerns Unchanged docusate (Colace 100 mg Cap) 1 Capsules By Mouth 2 times a day Contact prescribing physician if questions or concerns Unchanged meloxicam (meloxicam 15 mg Tab) Contact prescribing physician if questions or concerns Unchanged multivitamin with minerals (Womens Pack oral tablet) 1 Tablets By Mouth Every day Contact prescribing physician if questions or concerns Unchanged omega-3 polyunsaturated fatty acids (Nature's Bounty Red Krill Oil 500 mg oral capsule) 1 cap By Mouth Every day Contact prescribing physician if questions or concerns Unchanged potassium chloride (potassium chloride 99 mg oral tablet) 1 Tablets By Mouth Every day Contact prescribing physician if questions or concerns Unchanged tizanidine (tiZANidine 2 mg Tab) Contact prescribing physician if questions or concerns Test Results Urnls Dip Stick Auto w/o Microscopy POC 24915 (05/07/2023) Bilirubin Urine Dipstick - Negative Blood Urine Dipstick - Negative Glucose Urine Dipstick - Negative Ketones Urine Dipstick - Negative Leukocytes Urine Dipstick - Negative Nitrite Urine Dipstick - Negative Protein Urine Dipstick - Trace Specific [place] Urine Dipstick - 1.025 Urine Appearance Urine Dipstick - Clear Urine Color Urine Dipstick - Yellow Urobilinogen Urine Dipstick - Normal 0.2-1 EU/dl pH Urine Dipstick - 6 Allergies Latex (Rash) Problems Ongoing - Any problem that you are currently receiving treatment for. Anemia Arthritis Asymptomatic microscopic hematuria BMI 36.0-36.9,adult Former smoker Kidney stones Mixed incontinence Nocturia Ureteral stone Ureteral stone with hydronephrosis Education Materials Dietary Guidelines to Help Prevent Kidney Stones Kidney stones are deposits of minerals and salts that form inside your kidneys. Your risk of developing kidney stones may be greater depending on your diet, your lifestyle, the medicines you take, and whether you have certain medical conditions. Most people can lower their chances of developing kidney stones by following the instructions below. Your dietitian may give you more specific instructions depending on your overall health and the type of kidney stones you tend to develop. What are tips for following this plan? Reading food labels ? Choose foods with no salt added or low-salt labels. Limit your salt (sodium) intake to less than 1,500 mg a day. ? Choose foods with calcium for each meal and snack. Try to eat about 300 mg of calcium at each meal. Foods that contain 200?500 mg of calcium a serving include: ? 8 oz (237 mL) of milk, pkqopgk-olvevzjfrxtv-ghoyg milk, and calcium-fortifiedfruit juice. Calcium-fortified means that calcium has been added to these drinks. ? 8 oz (237 mL) of kefir, yogurt, and soy yogurt. ? 4 oz (114 g) of tofu. ? 1 oz (28 g) of cheese. ? 1 cup (150 g) of dried figs. ? 1 cup (91 g) of cooked broccoli. ? One 3 oz (85 g) can of sardines or mackerel. Most people ne (more content not included)... [facility] ED Note-Physicianon 05-07-20 ED Note-Physician [id number] [facility] ED Note-Physician [id number] [facility] Lab Reportson 05-07-2023 Lab Reports [id number] TIFF Natalee Mathis [facility] Patient Educationon 05-07-20 23 Patient Education Nephrology Dietary Guidelines to Help Prevent Kidney Stones Kidney stones are deposits of minerals and salts that form inside your kidneys. Your risk of developing kidney stones may be greater depending on your diet, your lifestyle, the medicines you take, and whether you have certain medical conditions. Most people can lower their chances of developing kidney stones by following the instructions below. Your dietitian may give you more specific instructions depending on your overall health and the type of kidney stones you tend to develop. What are tips for following this plan? Reading food labels ? Choose foods with no salt added or low-salt labels. Limit your salt (sodium) intake to less than 1,500 mg a day. ? Choose foods with calcium for each meal and snack. Try to eat about 300 mg of calcium at each meal. Foods that contain 200?500 mg of calcium a serving include: ? 8 oz (237 mL) of milk, tvhygoo-yxqcbuzkrwnt-xdbpj milk, and calcium-fortifiedfruit juice. Calcium-fortified means that calcium has been added to these drinks. ? 8 oz (237 mL) of kefir, yogurt, and soy yogurt. ? 4 oz (114 g) of tofu. ? 1 oz (28 g) of cheese. ? 1 cup (150 g) of dried figs. ? 1 cup (91 g) of cooked broccoli. ? One 3 oz (85 g) can of sardines or mackerel. Most people need 1,000?1,500 mg of calcium a day. Talk to your dietitian about how much calcium is recommended for you. Shopping ? Buy plenty of fresh fruits and vegetables. Most people do not need to avoid fruits and vegetables, even if these foods contain nutrients that may contribute to kidney stones. ? When shopping for convenience foods, choose: ? Whole pieces of fruit. ? Pre-made salads with dressing on the side. ? Low-fat fruit and yogurt smoothies. ? Avoid buying frozen meals or prepared deli foods. These can be high in sodium. ? Look for foods with live cultures, such as yogurt and kefir. ? Choose high-fiber grains, such as whole-wheat breads, oat bran, and wheat cereals. Cooking ? Do not add salt to food when cooking. Place a salt shaker on the table and allow each person to add his or her own salt to taste. ? Use vegetable protein, such as beans, textured vegetable protein (TVP), or tofu, instead of meat in pasta, casseroles, and soups. Meal planning ? Eat less salt, if told by your dietitian. To do this: ? Avoid eating processed or pre-made food. ? Avoid eating fast food. ? Eat less animal protein, including cheese, meat, poultry, or fish, if told by your dietitian. To do this: ? Limit the number of times you have meat, poultry, fish, or cheese each week. Eat a diet free of meat at least 2 days a week. ? Eat only one serving each day of meat, poultry, fish, or seafood. ? When you prepare animal protein, cut pieces into small portion sizes. For most meat and fish, one serving is about the size of the palm of your hand. ? Eat at least five servings of fresh fruits and vegetables each day. To do this: ? Keep fruits and vegetables on hand for snacks. ? Eat one piece of fruit or a handful of berries with breakfast. ? Have a salad and fruit at lunch. ? Have two kinds of vegetables at dinner. ? Limit foods that are high in a substance called oxalate. These include: ? Spinach (cooked), rhubarb, beets, sweet potatoes, and [place]yan chard. ? Peanuts. ? Potato chips, beninese fries, and baked potatoes with skin on. ? Nuts and nut products. ? Chocolate. ? If you regularly take a diuretic medicine, make sure to eat at least 1 or 2 servings of fruits or vegetables that are high in potassium each day. These include: ? Avocado. ? Banana. ? [place], prune, carrot, or tomato juice. ? Baked potato. ? Cabbage. ? Beans and split peas. Lifestyle ? Drink enough fluid to keep your urine pale yellow. This is the most important thing you can do. Spread your fluid intake throughout the day. ? If you drink alcohol: ? Limit how much you use to: ? 0?1 drink a day for women who are not . ? 0?2 drinks a day for men. ? Be aware of how much alcohol is in your drink. In the [place] one drink equals one 12 oz bottle of beer (355 mL), one 5 oz glass of wine (148 mL), or one 1? oz glass of hard liquor (44 mL). ? Lose weight if told by your health care provider. Work with your dietitian to find an eating plan and weight loss strategies that work best for you. General information ? Talk to your health care provider and dietitian about taking daily supplements. You may be told the following depending on your health and the cause of your kidney stones: ? Not to take supplements with vitamin C. ? To take a calcium supplement. ? To take a daily probiotic supplement. ? To take other supplements such as magnesium, fish oil, or vitamin B6. ? Take gfcr-dcg-azxnrig and prescription medicines only as told by your health care provider. These include supplements. What foods should I limit? Limit your in (more content not included)... [facility] RAD - CT Reporton 05-07-2023 RAD - CT Report [id number] [facility] Screenson 05-07-2023 Screens [id number] FF [facility] Urology Office/Clinic Noteon 05-07-2023 Urology Office/Clinic Note Chief Complai nt 1yr HPI Staff 1yr DX: Mixed Incontinence, Nocturia & Microscopic Hematuria *No Urology Meds Pt returned from [facility] last month. Since then has gone to [facility] x2 occasions due to Kidney Stones Pt did have Covid. Then experienced brown urine & Lt Flank Pain. Denies Hx of Kidney Stones. Has not passed stone that she knows of. Denies current pain. States urinary flow is better than it has ever been. Has been keeping up with Kegels. Leaking as improved. Still having the leaking after she has been sitting for a while then gets up.Gets sudden urgency. Still wearing a mini pad, 1-2/day. History of Present Illness Tests reviewed: reviewed UA and External Records including labs, imaging and notes I have reviewed the previous health record information and history for this patient from and external providers I have reviewed and verified the staff HPI to be accurate for this encounter. There have been no associated fever, chills, flank pain, or blood in the urine. Denies any urinary infections since last encounter. Review of Systems PHQ Score Initial Depression Screen Score: 0 ROS - Provider Constitutional: denies weight loss, denies hot flashes. Eyes: denies eye problems. Gastrointestinal: denies nausea, denies vomiting. Cardiovascular: denies chest pain or angina. Integumentary: no dryness Musculoskeletal: denies musculoskeletal symptoms. ENMT: denies otolaryngeal symptoms. Respiratory: no shortness of breath. Heme/Lymph: denies easy bleeding tendency, denies easy bruising tendency. Psychiatric: no confusion, no anxiety. Genitourinary: See HPI. Physical Exam Vitals & Measurements HR: 70(Peripheral) RR: 16 BP: 127/73 HT: 64 in HT: 162 cm WT: 97 kg WT: 213.4 lb BMI: 36.96 General Appearance: alert , no acute distress, well nourished, well developed female. Genitourinary: bladder nonpalpable, no flank pain. Assessment/Plan 1. Mixed incontinence (N39.46: Mixed incontinence) Pt has had improvement of incontinence sx after completing PFPT (5 sessions). Pt is able to do effective Kegel exercises Pt is not currently on any bladder medications - declined last visit Has been keeping up with Kegels. Leaking has improved. Still having the leaking after she has been sitting for a while then gets up, gets sudden urgency, leaks as she's walking. Still wearing a mini pad, 1-2/day. Pt states that she feels she is not good at the Kegels when she is walking. Advised pt to stop and try the Kegel's instead of doing them as she's walking. Again reinforced: 3-5 Kegels for 10 seconds and try to hold it longer and longer when she has Urge Incontinence. Pt states that she has tried to drink more water, this causes her to go to the bathroom more frequently. Advised pt that this is normal. Discussed timed voids, re-education on PFPT, starting a bladder control medication to help with Urge Incontinence. Advised pt that if she does not want a medication or procedure then she should try to not wait as long to void. Pt would like to hold off on adding a medication and will try to continue to do the Kegels. If she decides to try a medication, Myrbetriq will be ordered. -Continue Kegels, urge exercises -Timed voids 2. Nocturia (R35.1: Nocturia) Pt is waking 1-3x a night to urinate. Not bothered. -Cont behavioral modifications. 3. Asymptomatic microscopic hematuria (R31.21: Asymptomatic microscopic hematuria) UA at [facility] on 03/30/23 showed large blood, moderate bacteria, and trace leuks. UA at [facility] on 04/15/23 showed large blood and trace leuks. UA today is negative for blood and infection. Pt denies any visible blood in her urine. -Will continue to monitor. 4. Ureteral stone with hydronephrosis (N13.2: Hydronephrosis with renal and ureteral calculous obstruction) Pt returned from [place] last month. Since then has gone to [facility] x2 occasions due to COVID and Kidney Stones Pt did have COVID. Then experienced brown urine. CT AP w/ Con 04/25/23 - mild Lt-sided hydro w/ obstructive stone measuring 2.7mm in the UVJ Pt states that she is not sure if she has passed the stone or not, denies any pain or visible blood. Was not told to strain her urine. Pt was given Cipro at the first ER visit. UCx neg Discussed management options including medical expulsive therapy x 4-6 week vs intervention including extracorporeal shockwave lithotripsy vs ureteroscopy with laser lithotripsy/stone basket extraction possible stent. Risks/benefits of each were discussed including but not limited to: MET- renal damage, pain or infection; ESWL- bleeding, hematoma, pain, infection, inability to break up the stone, ureteral obstruction, cardiac arrhythmias, damage to surrounding structures and need for additional procedures; ureteroscopy - bleeding, pain, infection, damage to surrounding structures, ureteral perforation, stricture, inability to treat the stone and need for additional procedures. If a stent is placed, (more content not included)... Normal [facility] Comment on above: Result Comment: Elec tronically Signed By: Lorne GONZALEZ, Ramila Pascal\.br\Date and Time Signed: 05/07/23 09:20 EDT\.br\Electronically Co-Signed By: Jessica Barr\.br\Date and Time Co-Signed: 05/07/23 08:54 EDT VC INJ FOAM SCLERO W US MLTI on 12-05-2022 VC INJ FOAM SCLERO W US MLTI Patient: JB ESTRELLA Exam Date: 12/05/2022 : 1950 Gender:F Ordering : DR REINA TAN M.D. Admission #: [id number] Family : Order #: [id number] CLICK HERE TO VIEW EXAM RADIOLOGY REPORT PROCEDURE: VEIN CENTER INJECTION FOAM SCLEROSING SOLUTION WITH ULTRASOUND MULTIPLE VEINS COMPARISON: VC INJ FOAM SCLERO W US MLTI, 11/25/2022. Pre-operative Diagnosis: CEAP class C3 venous insufficiency with pain, tenderness, edema and incompetent branch saphenous vein, chronic venous insufficiency left leg secondary to venous incompetence Post-operative Diagnosis: CEAP class C3 venous insufficiency with pain, tenderness, edema and incompetent branch saphenous vein, chronic venous insufficiency left leg secondary to venous incompetence Procedure Performed: 1. Ultrasound-guided microfoam chemical ablation with Varithena(r) 2. Intraoperative ultrasound guidance Physician: Aashish Gil M.D. Anesthesia: None. Indications for Procedure: 71 year old female. Symptoms including bilateral lower extremity edema, bulging veins, pain, and muscle cramping for many years despite conservative medical therapy including medical compression stockings, exercise and analgesics. Prior procedures include: Endovenous laser ablation and microfoam chemical ablation. Multiple incompetent varicosities of the left leg. Duplex scan showed reflux and enlarged diameters up to 4 mm. The patient has undergone informed consent including management options where the complications of infection, bleeding, pain, and skin injury were discussed. Particular attention was spent discussing thrombus extension and deep vein thrombosis as well as the possibility of pulmonary embolus and treatment with oral or injectable blood thinners. Procedure: The patient walked to the procedure room. All applicable staff donned appropriate apparel. A procedure timeout was performed to confirm correct patient, correct extremity, correct procedure, and correct room set-up including presence of all applicable supplies, devices, and drugs. A duplex ultrasound, performed by myself confirmed the location and incompetence of branch saphenous varicosities and their course was marked on the skin together with the dilated tributaries. The extent of treatment of the veins and the associated varicosities was determined through ultrasound mapping. The skin was prepped and then punctured with a butterfly needle and advanced under ultrasound guidance. The Varithena(r) canister was activated and the canister was primed and purged as required in the instructions for use. Varithena(r) was drawn into a sterile syringe. Varithena(r) was slowly administered at 0.5-1.0 cc/second with close observation by ultrasound of its course in the vessels. Total volume utilized was: 10 mL (6 mL within a 4 mm incompetent varicosity of the distal medial lower leg; 4 mL within a 4 mm incompetent varicosity of the mid medial upper leg). Following administration of Varithena(r), the leg was elevated and the patient was asked to repeatedly dorsiflex the ankle to limit flow of Varithena(r) into perforating veins. Once appropriate spasm had been confirmed in the treated veins, the vascular catheter was removed from the leg and light pressure was applied over the puncture site for hemostasis The common femoral and deep superficial veins were then evaluated for flow and compressibility prior to dressing placement. The lower extremity was kept elevated at 45 degrees above the horizontal and cording material was applied over the saphenous segments and tributaries to allow for eccentric compression over the target vessels including the targeted saphenous vein(s). A multilayer dressing was applied consisting of foam pads, coban and thigh-high 20-30 mm Hg compression elastic support hose were placed on the patient. The leg was lowered only after compression had been applied and the patient was immediately ambulatory. The patient ambulated 10 minutes under supervision and was without apparent concerns at time of release Post-care instructions include advising patient to keep post-treatment bandages in place and dry for 48 hours, avoid extended periods of inactivity, avoid heavy exercise for one week, wear compression stockings on the treated leg continuously for two weeks, to walk daily for 10 minutes over the next month. The patient was instructed to take an anti-inflammatory medicine as needed and to follow up for color duplex scan of the Saphenous veins, the treated branch saphenous varicosities, the adjacent deep veins, and additional treatment within 7 days. PERSONNEL: Efe Hoskins R.N. Dictated by: Aashish Gil M.D. on 12/05/2022 at 09:14 Approved by: Aashish Gil M.D. on 12/05/2022 at 09:41 Normal [facility] VC CONSULT FOLLOWUPon 2022 VC CONSULT FOLLOWUP Patient: ZHANG ESTRELLA Exam Date: 11/28/2022 : 1950 Gender:F Ordering : DR REINA TAN M.D. Admission #: [id number] Family : Order #: [id number] CLICK HERE TO VIEW EXAM RADIOLOGY REPORT PROCEDURE: VEIN CENTER CONSULTATION FOLLOWUP VEIN CENTER - OFFICE VISIT FOLLOW UP COMPARISON: VC CONSULT FOLLOWUP, 11/13/2022. VC CONSULT FOLLOWUP, 10/23/2022. PROGRESS NOTES: The patient reports no significant problem following micro foam chemical ablation of the right leg. The patient did not require oral analgesics. The patient has worn her compression stocking. The patient has followed our recommendations to walk 20-30 minutes once or twice per day since the procedure. Physical exam demonstrates a few scattered thrombosed varicose veins. No areas of erythema or warmth to suggest cellulitis or thrombophlebitis. No active ulceration. Residual reticular and spider veins Review of the ultrasound performed the same day demonstrates occlusive thrombus extending throughout the treated right leg varicose veins. No residual incompetent varicose veins on the right. The patient expressed a desire to proceed with treatment of left leg incompetent varicose veins with micro foam chemical ablation. IMPRESSION: 1. Successful ablation of incompetent right leg varicose veins 2. Persistent incompetent left leg varicose veins PLAN: Micro foam chemical ablation left leg Nurse notes, history and physical were reviewed and confirmed, see attached forms. The nurse was present throughout the physical exam and consultation Dictated by: Reina Tan MD on 11/28/2022 at 08:32 Approved by: Reina Tan MD on 11/28/2022 at 08:38 Normal [facility] VC EXT VENOUS RT LIMITEDon 0 11-28-2022 VC EXT VENOUS RT LIMITED Patient: JB ESTRELLA Exam Date: 11/28/2022 : 1950 Gender:F Ordering : DR REINA TAN M.D. Admission #: [id number] Family : Order #: [id number] CLICK HERE TO VIEW EXAM RADIOLOGY REPORT PROCEDURE: VEIN CENTER EXTREMITY VENOUS RIGHT LIMITED COMPARISON: VC EXT VENOUS RT LIMITED, 10/23/2022. INDICATIONS: Phlebitis of superficial veins of lower extremity I80.01 TECHNIQUE: Lower extremity craven scale and Duplex Doppler evaluation of the deep venous system from the inguinal ligament through the calf veins. FINDINGS: REGION: Right lower extremity. THROMBI: Negative for DVT. Varithena induced thrombus visualized at medial ankle, prox/med calf, and dist/med thigh. COMPRESSIBILITY: Non-compressible segments corresponding to thrombus. FLOW: Absent flow corresponding to thrombus *Exam performed in accordance with [facility] practice guidelines- Peripheral venous ultrasound, October 21, 2009. CONCLUSION: Post ablation occlusion of treated right leg varicose veins. No residual incompetent varicose veins are observed Dictated by: Reina Tan MD on 11/28/2022 at 08:16 Approved by: eRina Tan MD on 11/28/2022 at 08:17 Normal [facility] VC INJ FOAM SCLERO W US MLTI on 11-25-2022 VC INJ FOAM SCLERO W US MLTI Patient: JB ESTRELLA Exam Date: 11/25/2022 : 1950 Gender:F Ordering : DR REINA TAN M.D. Admission #: [id number] Family : Order #: [id number] CLICK HERE TO VIEW EXAM RADIOLOGY REPORT PROCEDURE: VEIN CENTER INJECTION FOAM SCLEROSING SOLUTION WITH ULTRASOUND MULTIPLE VEINS COMPARISON: VC COMP CONSULTATION, 02/28/2022. Pre-operative Diagnosis: CEAP class C3 venous insufficiency with pain, tenderness, edema and incompetent branch saphenous vein, chronic venous insufficiency right leg secondary to venous incompetence Post-operative Diagnosis: CEAP class C3 venous insufficiency with pain, tenderness, edema and incompetent branch saphenous vein, chronic venous insufficiency right leg secondary to venous incompetence Procedure Performed: 1. Ultrasound-guided microfoam chemical ablation with Varithena(r) 2. Intraoperative ultrasound guidance Physician: Aashish Gil M.D. Anesthesia: None. Indications for Procedure: 71 year old female. Symptoms including bilateral leg pain, muscle cramping, edema, bulging veins for many years despite conservative medical therapy including medical compression stockings, exercise and analgesics. Prior procedures include: Endovenous laser ablation. Multiple incompetent varicosities of the right leg. Duplex scan showed reflux and enlarged diameters up to 4 mm. The patient has undergone informed consent including management options where the complications of infection, bleeding, pain, and skin injury were discussed. Particular attention was spent discussing thrombus extension and deep vein thrombosis as well as the possibility of pulmonary embolus and treatment with oral or injectable blood thinners. Procedure: The patient walked to the procedure room. All applicable staff donned appropriate apparel. A procedure timeout was performed to confirm correct patient, correct extremity, correct procedure, and correct room set-up including presence of all applicable supplies, devices, and drugs. A duplex ultrasound, performed by myself confirmed the location and incompetence of branch saphenous varicosities and their course was marked on the skin together with the dilated tributaries. The extent of treatment of the veins and the associated varicosities was determined through ultrasound mapping. The skin was prepped and then punctured with a butterfly needle and advanced under ultrasound guidance. The Varithena(r) canister was activated and the canister was primed and purged as required in the instructions for use. Varithena(r) was drawn into a sterile syringe. Varithena(r) was slowly administered at 0.5-1.0 cc/second with close observation by ultrasound of its course in the vessels. Total volume utilized was: 11 mL (6 mL within a 4 mm incompetent varicosity medial to the right ankle; 5 mL within a 4 mm varicosity of the mid anterior right thigh). Following administration of Varithena(r), the leg was elevated and the patient was asked to repeatedly dorsiflex the ankle to limit flow of Varithena(r) into perforating veins. Once appropriate spasm had been confirmed in the treated veins, the vascular catheter was removed from the leg and light pressure was applied over the puncture site for hemostasis The common femoral and deep superficial veins were then evaluated for flow and compressibility prior to dressing placement. The lower extremity was kept elevated at 45 degrees above the horizontal and cording material was applied over the saphenous segments and tributaries to allow for eccentric compression over the target vessels including the targeted saphenous vein(s). A multilayer dressing was applied consisting of foam pads, coban and thigh-high 20-30 mm Hg compression elastic support hose were placed on the patient. The leg was lowered only after compression had been applied and the patient was immediately ambulatory. The patient ambulated 10 minutes under supervision and was without apparent concerns at time of release Post-care instructions include advising patient to keep post-treatment bandages in place and dry for 48 hours, avoid extended periods of inactivity, avoid heavy exercise for one week, wear compression stockings on the treated leg continuously for two weeks, to walk daily for 10 minutes over the next month. The patient was instructed to take an anti-inflammatory medicine as needed and to follow up for color duplex scan of the Saphenous veins, the treated branch saphenous varicosities, the adjacent deep veins, and additional treatment within 7 days. PERSONNEL: Efe Hoskins R.N. Dictated by: Aashish Gil M.D. on 11/25/2022 at 11:59 Approved by: Aashish Gil M.D. on 11/25/2022 at 12:03 Normal [facility] VC CONSULT FOLLOWUPon 2022 VC CONSULT FOLLOWUP Patient: ZHANG ESTRELLA HUSSEINMATT Clifford Exam Date: 11/13/2022 : 1950 Gender:F Ordering : DR REINA TAN M.D. Admission #: [id number] Family : Order #: [id number] CLICK HERE TO VIEW EXAM RADIOLOGY REPORT PROCEDURE: VEIN CENTER CONSULTATION FOLLOWUP VEIN CENTER - OFFICE VISIT FOLLOW UP COMPARISON: VC CONSULT FOLLOWUP, 10/23/2022. PROGRESS NOTES: The patient reports improvement in leg symptoms. There has been interval reduction in varicosities. The patient has followed our recommendations to walk 20-30 minutes once or twice per day since the procedure. Physical exam demonstrates decrease in varicosities of the left leg. Persistent varicosities are identified along the legs bilaterally. Review of the ultrasound performed the same day demonstrates occlusive thrombus extending throughout the treated vein, see separate report, consistent with a successful ablation. No thrombus extending into or beyond the saphenofemoral junction. The patient expressed a desire to proceed with treatment of incompetent branch saphenous veins. The patient was informed that treatment was a process and would require several procedures/sessions. IMPRESSION: 1. Successful ablation of the left small saphenous vein 2. Persistent incompetent branch saphenous veins and bilateral lower extremity symptoms PLAN: Microfoam chemical ablation of incompetent branch saphenous varicosities beginning with right leg. Nurse notes, history and physical were reviewed and confirmed, see attached forms. The nurse was present throughout the physical exam and consultation Dictated by: Aasihsh Gil M.D. on 11/13/2022 at 09:52 Approved by: Aashish Gil M.D. on 11/13/2022 at 09:54 Normal [facility] VC EXT VENOUS LT LIMITEDon 0 11-13-2022 VC EXT VENOUS LT LIMITED Patient: JB ESTRELLARafia Exam Date: 11/13/2022 : 1950 Gender:F Ordering : DR REINA TAN M.D. Admission #: [id number] Family : Order #: [id number] CLICK HERE TO VIEW EXAM RADIOLOGY REPORT PROCEDURE: VEIN CENTER EXTREMITY VENOUS LEFT LIMITED COMPARISON: None. INDICATIONS: Phlebitis and thrombophlebitis of superficial veins of left lower extremity I80.02 TECHNIQUE: Lower extremity craven scale and Duplex Doppler evaluation of the deep venous system from the inguinal ligament through the calf veins. FINDINGS: REGION: Left lower extremity. THROMBI: Negative for DVT. Heat induced thrombus in left SSV 2.2 cm from SPJ and extends to distal lower leg. COMPRESSIBILITY: Non-compressible segments. FLOW: Areas of no flow. OTHER: CONCLUSION: 1. Successful post ablation occlusion of left small saphenous vein. Dictated by: Aashish Gil M.D. on 11/13/2022 at 09:49 Approved by: Aashish Gil M.D. on 11/13/2022 at 09:52 Normal [facility] VC ENDOVENOUS ABL 1ST V LTon 11-06-2022 VC ENDOVENOUS ABL 1ST V LT Patient: JB ESTRELLARafia Exam Date: 11/06/2022 : 1950 Gender:F Ordering : DR REINA TAN M.D. Admission #: [id number] Family : Order #: [id number] CLICK HERE TO VIEW EXAM RADIOLOGY REPORT PROCEDURE: VEIN CENTER ENDOVENOUS ABLATION FIRST VEIN LEFT COMPARISON: VC VENOUS REFLUX TITA LMT, 02/28/2022. INDICATIONS: Pain co-occurrent and due to varicose veins of bilateral legs I83.813 OPERATIVE REPORT: The risks and benefits of the procedure had been previously discussed, and were rediscussed at length. Informed written consent was obtained by and Efe vaz. Time out procedure was performed. The left lower extremity was prepared and draped in the usual sterile fashion to allow knee flexion in the sterile field. Duplex ultrasound probe was draped in a sterile cover, sterile transmission gel was used. Venous mapping was performed with the areas of dilation and large tributaries marked. The total length was 32 cm from the entry 3 cm above the medial malleolus to 3 cm below the saphenopopliteal junction. The diameter of the greater saphenous vein ranged from 7 mm. A 30 gauge needle and 1% buffered lidocaine was used to anesthetize the entry site. A 4 mm incision was made with a scalpel and the saphenous vein was entered percutaneously under direct ultrasound guidance with a micropuncture set, a single stick was successful in gaining access. A micro-guide wire was inserted and the needle removed. A micro-set including a dilator was inserted over the microwire and the needle and dilator were removed. A 0.018 guide wire was inserted through the micro-set and threaded through the saphenous vein to the saphenofemoral junction. The dilator was removed and an introducer sheath was inserted over the wire until the end of the sheath entered the saphenofemoral junction. The dilator and wire were removed and the 600 micron fiber was introduced and placed and positioned so that it extended beyond the sheath and was 3 cm peripheral to the saphenofemoral femoral junction. Final position of the fiber was determined by ultrasound guidance and duplex imaging. Tumescent anesthetic was delivered by ultrasound guidance. One hundred twenty-five cc of fluid was delivered along the entire course of the saphenous vein. The solution consisted of 500 cc of normal saline with 20mL of 1% lidocaine and 10 mL of sodium bicarbonate. A final positioning check was made. The energy source was turned on by means of the foot pedal and the fiber and sheath were withdrawn. The total number of Joules delivered was 1159. The laser was active for 145 seconds under continuous pulse, average laser use of 8 J. Laser start time 1:55 p.m. November 06, 2022. Laser stop time 1:57 p.m. November 06, 2022. A duplex ultrasound revealed compressibility and flow at the saphenofemoral junction immediately after the procedure. Hemostasis at the access site was achieved. The skin incision of the saphenous vein was closed with a 4 x 4. A compression stocking was applied. Postop instructions were given. A follow up appointment was recommended and scheduled. The patient tolerated the procedure well and was discharged in good condition. CONCLUSION: 1. Technically successful endovenous laser ablation of the left small saphenous vein. Dictated by: Aashish Gil M.D. on 11/06/2022 at 14:01 Approved by: Aashish Gil M.D. on 11/06/2022 at 14:02 Normal [facility] VC CONSULT FOLLOWUPon 2022 VC CONSULT FOLLOWUP Patient: ZHANG ESTRELLA Exam Date: 10/23/2022 : 1950 Gender:F Ordering : DR REINA TAN M.D. Admission #: [id number] Family : Order #: [id number] CLICK HERE TO VIEW EXAM RADIOLOGY REPORT PROCEDURE: VEIN CENTER CONSULTATION FOLLOWUP VEIN CENTER - OFFICE VISIT FOLLOW UP COMPARISON: None. PROGRESS NOTES: The patient reports no significant pain or difficulty following intravenous laser ablation of right great saphenous vein. The patient did require analgesics. The patient did wear her compression stocking. The patient has followed our recommendations to walk 20-30 minutes once or twice per day since the procedure. Physical exam demonstrates no areas of bruising, erythema or warmth. No evidence of cellulitis or thrombophlebitis. The great saphenous vein can be partially palpated. Review of the ultrasound performed the same day demonstrates occlusive thrombus extending throughout the treated right great saphenous vein with heat induced thrombus 7.7 mm from the saphenofemoral junction. The patient expressed a desire to proceed with treatment of incompetent left small saphenous vein with intravenous laser ablation. IMPRESSION: 1. Successful ablation of the right great saphenous vein 2. Persistent incompetent left small saphenous vein PLAN: Intravenous laser ablation left small saphenous vein Nurse notes, history and physical were reviewed and confirmed, see attached forms. The nurse was present throughout the physical exam and consultation Dictated by: Reina Tan MD on 10/23/2022 at 13:30 Approved by: Reina Tan MD on 10/23/2022 at 13:32 Normal [facility] VC EXT VENOUS RT LIMITEDon 0 10-23-2022 VC EXT VENOUS RT LIMITED Patient: JB ESTRELLA. Exam Date: 10/23/2022 : 1950 Gender:F Ordering : DR REINA TAN M.D. Admission #: [id number] Family : Order #: [id number] CLICK HERE TO VIEW EXAM RADIOLOGY REPORT PROCEDURE: VEIN CENTER EXTREMITY VENOUS RIGHT LIMITED COMPARISON: None. INDICATIONS: Phlebitis and thrombophlebitis of superficial veins of right lower extremity I80.01 TECHNIQUE: Lower extremity craven scale and Duplex Doppler evaluation of the deep venous system from the inguinal ligament through the calf veins. FINDINGS: REGION: Right lower extremity. THROMBI: Negative for DVT. Heat-induced thrombus in right GSV 7.7 mm from SFJ and extends to proximal calf COMPRESSIBILITY: Non-compressible segments corresponding to thrombus. FLOW: Absent flow corresponding to thrombus *Exam performed in accordance with [facility] practice guidelines- Peripheral venous ultrasound, October 21, 2009. CONCLUSION: Post ablation occlusion of the right great saphenous vein with heat induced thrombus 7.7 mm from the saphenofemoral junction Dictated by: Reina Tan MD on 10/23/2022 at 10:52 Approved by: Reina Tan MD on 10/23/2022 at 10:54 Normal The [facility] VC ENDOVENOUS ABL 1ST V RTon 10-18-2022 VC ENDOVENOUS ABL 1ST V RT Patient: JB ESTRELLA. Exam Date: 10/18/2022 : 1950 Gender:F Ordering : DR REINA TAN M.D. Admission #: [id number] Family : Order #: [id number] CLICK HERE TO VIEW EXAM RADIOLOGY REPORT PROCEDURE: VEIN CENTER ENDOVENOUS ABLATION FIRST VEIN RIGHT GREAT SAPHENOUS COMPARISON: None. INDICATIONS: Pain co-occurrent and due to varicose veins of bilateral legs I83.813 OPERATIVE REPORT: The risks and benefits of the procedure had been previously discussed, and were rediscussed at length. Informed written consent was obtained by and Efe vaz. Time out procedure was performed. The right lower extremity was prepared and draped in the usual sterile fashion to allow knee flexion in the sterile field. Duplex ultrasound probe was draped in a sterile cover, sterile transmission gel was used. Venous mapping was performed with the areas of dilation and large tributaries marked. The total length was 3 cm from the entry at the knee to 3 cm below the saphenofemoral junction. The diameter of the greater saphenous vein ranged from 5-10 mm. A 30 gauge needle and 1% buffered lidocaine was used to anesthetize the entry site. A 4 mm incision was made with a scalpel and the saphenous vein was entered percutaneously under direct ultrasound guidance with a micropuncture set, a single stick was successful in gaining access. A micro-guide wire was inserted and the needle removed. A micro-set including a dilator was inserted over the microwire and the needle and dilator were removed. A 0.018 guide wire was inserted through the micro-set and threaded through the saphenous vein to the saphenofemoral junction. The dilator was removed and an introducer sheath was inserted over the wire until the end of the sheath entered the saphenofemoral junction. The dilator and wire were removed and the 600 micron fiber was introduced and placed and positioned so that it extended beyond the sheath and was 3 cm peripheral to the saphenofemoral femoral junction. Final position of the fiber was determined by ultrasound guidance and duplex imaging. Tumescent anesthetic was delivered by ultrasound guidance. 225 cc of fluid was delivered along the entire course of the saphenous vein. The solution consisted of 500 cc of normal saline with 20mL of 1% lidocaine and 10 mL of sodium bicarbonate. A final positioning check was made. The energy source was turned on by means of the foot pedal and the fiber and sheath were withdrawn. The total number of Joules delivered was 1623. The laser was active for 203 seconds under continuous pulse, average laser use of 8 J. Laser start time October 18, 2022 at 10:04 a.m.. Laser stop time October 18, 2022 at 10:08 a.m. A duplex ultrasound revealed compressibility and flow at the saphenofemoral junction immediately after the procedure. Hemostasis at the access site was achieved. The skin incision of the saphenous vein was closed with a 4 x 4. A compression stocking was applied. Postop instructions were given. A follow up appointment was recommended and scheduled. The patient tolerated the procedure well and was discharged in good condition. CONCLUSION: 1. Technically successful endovenous laser ablation of the right great saphenous vein. Dictated by: Reina Tan MD on 10/18/2022 at 10:14 Approved by: Reina Tan MD on 10/18/2022 at 10:20 Normal The [facility] l CBC AUTO DIFFon 05-28-2022 BASO # 0.0 103/ul Normal 0.0-0.1 [facility] Comment on above: Performed By: #### D ATCBC ####[facility] [address] [place] [address]Dr. Nerissakathy Dacosta Basophils/100 WBC (Bld) 0.7 % Normal 0.2-2.0 [facility] Comment on above: Performed By: #### D ATCBC ####[facility] Et[address] [place], [place] [address]Dr. Ольга Dacosta EO # 0.3 103/ul Normal 0.0-0.7 The [facility] Comment on above: Performed By: #### D ATCBC ####[facility] V[address] [place], [place] [address]Dr. Ольга Praneeth Eosinophils/100 WBC (Bld) 6.1 % Normal 0.9-7.0 The [facility] Comment on above: Performed By: #### D ATCBC ####[facility] [address] [place], [place] [address]Dr. Ольга Dacosta Erythrocyte distribution wid th (RBC) [Ratio] 16.3 % Critically high 11.0-15.0 The [facility] Comment on above: Performed By: #### D ATCBC ####[facility] [address] [place], [place] [address]Dr. Ольга Dacosta Hematocrit (Bld) [Volume fraction] 39.5 % Normal 3 6.0-48.0 [facility] Comment on above: Performed By: #### D ATCBC ####[facility] I[address]we[address] [place], [place] [address]Dr. Ольга Dacosta Hemoglobin (Bld) [Mass/Vol] 12.2 g/dL Normal 12.0-16. 0 [facility] Comment on above: Performed By: #### D ATCBC ####[facility] [address] [place] [id number]. Ольга Dacosta IG # 0.01 10e3/ul Normal 0.00-0.03 [facility] Comment on above: Performed By: #### D ATCBC ####[facility] [address] [place], [place] [address]Dr. Ольга Dacosta IG % 0.2 % Normal 0.0-0.5 [facility] Comment on above: Performed By: #### D ATCBC ####[facility] [address] [place], [place] [address]Dr. Ольга Dacosta LYMPH # 1.9 103/ul Normal 1.2-3.8 [facility] Comment on above: Performed By: #### D ATCBC ####[facility] [address] [place], [place] [address]Dr. Ольга Dacosta Lymphocytes/100 WBC (Bld) 34.8 % Normal 20.5-60.0 The [facility] Comment on above: Performed By: #### D ATCBC ####[facility] [address] [place], [place] [address]Dr. Ольга Dacosta MCH (RBC) [Entitic mass] 20.4 pg Critically low 26.7-34 .0 [facility] Comment on above: Performed By: #### D ATCBC ####[facility] [address] [place], [place] [address]Dr. Ольга Dacosta MCHC (RBC) [Mass/Vol] 30.9 g/dL Normal 29.9-35.2 [facility] Comment on above: Performed By: #### D ATCBC ####[facility] [address] [place], [place] [address]Dr. Ольга Dacosta MCV (RBC) [Entitic vol] 66.2 fL Critically low 81.0-99. 0 The [facility] Comment on above: Performed By: #### D ATCBC ####[facility] Cl[address]mshoeez[address] [place], [place] [address]Dr. Ольга Dacosta MONO # 0.5 103/ul Normal 0.3-0.8 [facility] Comment on above: Performed By: #### D ATCBC ####[facility] [address] [place] [id number]. Ольга Dacosta Monocytes/100 WBC (Bld) 9.2 % Normal 1.7-12.0 [facility] Comment on above: Performed By: #### D ATCBC ####[facility] [address] [place] [id number]. Ольга Dacosta NEUT # 2.7 103/ul Normal 1.4-6.5 [facility] Comment on above: Performed By: #### D ATCBC ####[facility] [address] [place], [place] [address]Dr. Ольга Dacosta Neutrophils/100 WBC (Bld) 49.0 % Normal 43.0-75.0 [facility] Comment on above: Performed By: #### D ATCBC ####[facility] [address] [place], [place] [address]Dr. Ольга Dacosta Platelet mean volume (Bld) [ Entitic vol] 11.4 fL Normal 9.5-13.5 The [facility] pital Comment on above: Performed By: #### D ATCBC ####[facility] K[address]az[address] [place], [place] [address]Dr. Ольга Dacosta PLT 243 103/ul Normal 150-450 [facility] Comment on above: Performed By: #### D ATCBC ####[facility] [address] [place] [id number]. Ольга Dacosta RBC 5.97 106/ul Critically high 4.20-5.40 The [facility] Comment on above: Performed By: #### D ATCBC ####[facility] [address] [place], [place] [address]Dr. Ольга Dacosta WBC 5.5 103/ul Normal 4.0-11.0 [facility] Comment on above: Performed By: #### D ATCBC ####[facility] [address] [place], [place] [address]Dr. Ольга Dacosta JERMAN - TSHon 05-28-2022 TSH 1.495 uIU/mL Normal 0.358-3.740 [facility] Comment on above: Performed By: #### Elke BALDERRAMA DATBMP ####[facility] [address] [place], [place] [address]Dr. Ольга Dacosta TSH RANGE SEE BELOW Normal [facility] Comment on above: Result Comment: <0.3 4 UIU/ml HYPERTHYROID 0.34-5.60 UIU/ml EUTHYROID >5.60 UIU/ml HYPOTHYROID Performed By: #### D TACOS DATBMP ####[facility] [address] [place], [place] [address]Dr. Ольга Dacosta JERMAN- BMP WITH LIPIDon 2021 Anion gap [Moles/Vol] 10.3 mmol/L Normal [facility] Comment on above: Performed By: #### Elke BALDERRAMA DATBMP ####[facility] [address] [place], [place] [address]Dr. Ольга Dacosta Calcium [Mass/Vol] 9.1 mg/dL Normal 8.5-10.1 [facility] Comment on above: Performed By: #### Elke BALDERRAMA DATBMP ####[facility] Uq[address] [place], [place] [address]Dr. Nerissakathy Dacosta Chloride [Moles/Vol] 104 mmol/L Normal 98-107 [facility] Comment on above: Performed By: #### Elke BALDERRAMA DATBMP ####[facility] [address] [place], [place] [address]Dr. Ольга Parneeth Cholesterol [Mass/Vol] 162 mg/dL Normal <=200 [facility] Comment on above: Performed By: #### Elke BALDERRAMA DATBMP ####[facility] [address] [place], [place] [address]Dr. Nerissakathy Praneeth Cholesterol in HDL [Mass/Vol] 59 mg/dL Normal 40-60 [facility] Comment on above: Performed By: #### Elke BALDERRAMA DATBMP ####[facility] [address] [place], [place] [address]Dr. Ольга Dacosta Cholesterol in LDL [Mass/Vol] 88.0 mg/dL Normal [facility] Comment on above: Performed By: #### JERMAN VORABMP ####[facility] [address] [place] [address]Dr. Ольга Dacosta CO2 [Moles/Vol] 29.1 mmol/L Normal 21.0-32.0 [facility] Comment on above: Performed By: #### Elke BALDERRAMA DATBMP ####[facility] [address] [place] [address]Dr. Ольга Dacosta Creatinine [Mass/Vol] 0.59 mg/dL Normal 0.55-1.02 [facility] Comment on above: Performed By: #### Elke BALDERRAMA DATBMP ####[facility] [address] [place] [address]Dr. Ольга Dacosta EGFR-AF BURMESE >60 Normal >=60 [facility] Comment on above: Performed By: #### JERMAN VORABMP ####[facility] [address] [place] [address]Dr. Nerissakathy Dacosta EGFR-NON AF BURMESE >60 Normal >=60 [facility] Comment on above: Performed By: #### JERMAN VORABMP ####[facility] [address] [place] [address]Dr. Ольга Dacosta Glucose [Mass/Vol] 100 mg/dL Normal 74-106 [facility] Comment on above: Performed By: #### Elke BALDERRAMA DATBMP ####[facility] [address] [place] [address]Dr. Ольга Dacosta HDL NORMAL > or = 60 mg/dl - LO W CARDIOVASCULAR RISK <40 mg/dl - HIGH CARDIOVASCULAR RISK Normal [facility] Comment on above: Performed By: #### Elke BALDERRAMA DATBMP ####[facility] [address] [place] [address]Dr. Ольга Dacosta LDL CALC NORMAL SEE BELOW Normal [facility] Comment on above: Result Comment: <100 mg/dl OPTIMAL 100 - 129 mg/dl NEAR OR ABOVE OPTIMAL 130 - 159 mg/dl BORDERLINE HIGH 160 - 189 mg/dl HIGH >190 mg/dl VERY HIGH Performed By: #### D TACOS DATBMP ####[facility] [address] [place] [address]Dr. Nerissakathy Praneeth Potassium [Moles/Vol] 4.4 mmol/L Normal 3.5-5.1 [facility] Comment on above: Performed By: #### Elke BALDERRAMA DATBMP ####[facility] [address] [place] [address]Dr. Ольга Dacosta Sodium [Moles/Vol] 139 mmol/L Normal 136-145 [facility] Comment on above: Performed By: #### Elke BALDERRAMA DATBMP ####[facility] [address] [place] [address]Dr. Ольга Dacosta Triglyceride [Mass/Vol] 75 mg/dL Normal <=150 [facility] Comment on above: Performed By: #### Elke BALDERRAMA DATBMP ####[facility] [address] [place] [address]Dr. Ольга Dacosta Urea nitrogen [Mass/Vol] 25.0 mg/dL Critically high 7.0-18 .0 [facility] Comment on above: Performed By: #### Elke BALDERRAMA DATBMP ####[facility] [address] [place] [address]Dr. Ольга Dacosta Urea nitrogen/Creatinine [Mass ratio] 42.4 mg/mg Normal [facility] Comment on above: Performed By: #### Elke BALDERRAMA DATBMP ####[facility] [address] [place] [address]Dr. Ольга Dacosta VLDL CALC 15.0 mg/dL Normal [facility] ospital Comment on above: Performed By: #### Elke BALDERRAMA DATBMP ####[facility] [address] [place] [address]Dr. Ольга Dacosta VC COMP CONSULTATIONon 02-28 VC COMP CONSULTATION Patient: ERIC ESTRELLA Exam Date: 02/28/2022 : 1950 Gender:F Ordering : DR REINA TAN M.D. Admission #: [id number] Family : Order #: [id number] CLICK HERE TO VIEW EXAM RADIOLOGY REPORT PROCEDURE: VC VEIN CENTER CONSULTATION VEIN CENTER - OFFICE VISIT INITIAL COMPARISON: None. PROGRESS NOTES: [age] year old female who presents with a 20 year history of dilated bulging veins, leg pain, swelling, muscle cramping, edema. The patient's right leg symptoms are worse than the left. There has been a progression of symptoms. This increases with prolonged leg dependency. The patient describes an improvement with rest and elevation. The patient denies any signs and symptoms to suggest arterial ischemia. The patient describes a family history of varicose veins and mother. The patient has drinking and smoking history of occasional alcohol consumption and former tobacco user. Patient has a past medical history significant for varicose veins, urinary incontinence, colon polyps, chronic bronchitis. The patient denies a history of deep venous thrombus or pulmonary embolus. See separate history and physical for medication list. No prior treatment for varicose or spider veins. Current use of compression stockings. After review of nurse notes, history and physical exam I discussed at length the pathophysiology of venous hypertension and possible treatments, therapies and strategies available. We discussed at length the importance of elevating the lower extremities above the level of the heart, increased physical activity and compression stocking use. Ultrasound venous reflux study performed today was discussed at length with the patient. The report demonstrates dilated, incompetent right great saphenous vein and left small saphenous vein. PHYSICAL EXAM: The right leg demonstrates several varicosities, multiple reticular and spider veins, no ulceration, mild edema, no skin discoloration. The left leg demonstrates several varicosities, multiple reticular and spider veins, no ulceration, mild edema, no skin discoloration. Both thighs, legs and feet were symmetrically warm to the touch. Good posterior tibial and dorsalis pedis pulses were present bilaterally. IMPRESSION: 1. Bilateral lower extremity venous insufficiency 2. Bilateral lower extremity varicose veins 3. Mild bilateral lower extremity subcutaneous edema 4. No flow significant arterial disease 5. CEAP: C3, EC, AP, WA PLAN: 1. Continued use of compression stockings 2. Elevated legs and increased physical activity symptomatic relief 3. Endovenous laser ablation of right great saphenous vein, left small saphenous vein, bilateral microfoam chemical ablation of branch saphenous varicosities, followed by bilateral sclerotherapy of prominent reticular and spider veins. Nurse notes, history and physical were reviewed and confirmed, see attached forms. The nurse was present throughout the physical exam and consultation Dictated by: Aashish Gil M.D. on 02/28/2022 at 13:32 Approved by: Aashish Gil M.D. on 02/28/2022 at 13:38 Normal [facility] ruthie VC VENOUS REFLUX TITA LMTon 0 02-28-2022 VC VENOUS REFLUX TITA LMT Patient: JB ESTRELLA Exam Date: 02/28/2022 : 1950 Gender:F Ordering : DR REINA TAN M.D. Admission #: [id number] Family : Order #: [id number] CLICK HERE TO VIEW EXAM RADIOLOGY REPORT PROCEDURE: VEIN CENTER ULTRASOUND VENOUS REFLUX BILATERAL LIMTED COMPARISON: None. INDICATIONS: Pain co-occurrent and due to varicose veins of bilateral legs TECHNIQUE: Duplex imaging of the lower extremity to assess the deep and superficial venous system for the presence of deep or superficial venous incompetence and to document the location and severity of disease. The study includes evaluation of the great saphenous vein (GSV), anterior accessory saphenous vein (AASV) and small saphenous vein (SSV). Patient scanned in reverse Trendelenburg and standing. FINDINGS: RIGHT LOWER EXTREMITY: Saphenofemoral Junction Reflux: Yes 8.4mm 1.3 sec GSV: Diam (mm) Reflux/ Time (sec) Proximal Thigh 7.7 Yes 0.8 Mid Thigh 5.7 No Distal Thigh 5.3 Yes 0.6 Prox Calf 4.4 No Mid Calf 2.1 Yes 0.6 Saphenopopliteal Junction Reflux: 5.2mm No SSV: Proximal Calf 3.4 No Mid Calf 1.8 No AASV: Proximal Thigh 3.9 No Mid Thigh 2.1 No Distal Thigh Thrombi: No acute or chronic thrombus visualized Compressibility: Normal Flow: Normal Preforator: Dist/med calf 1.8mm with 0s. Dist/med 3.9mm with 0s. Mid/med 5.5mm with 0.7s. Mid/med 2.7mm with 0s. Tech Note: Incompetent SFJ and GSV, competent SPJ, AASV, and SSV. Patent varicose vein dist/post calf 3.7mm with 0.4s reflux. Patent varicose vein mid/med calf 2.8mm with 0s reflux. Patent varicose vein dist/med thigh 2.2mm with 0s reflux. Patent varicose vein mid/med thigh arising off of GSV 2.9mm with 0s reflux. LEFT LOWER EXTREMITY: Saphenofemoral Junction Reflux: Yes 8.4 mm 0.9 sec GSV: Diam (mm) Reflux/Time (sec) Proximal Thigh 8.9 No Mid Thigh 3.7 Yes 0.4 Distal Thigh 4.3 No Prox Calf 1.5 No Mid Calf 3.1 No Saphenopopliteal Junction Relux: 5.6 mm 0.7 SSV: Proximal Calf 6.9 Yes 0.9 Mid Calf 5.0 Yes 0.6 AASV: Proximal Thigh 7.2 No Mid Thigh 4.2 No Distal Thigh Thrombi: No acute or chronic thrombus visualized Compressibility: Normal Flow: Normal [place]: Dist/med calf 3.2mm with 0s reflux. Mid/med calf 2.5mm with 0s reflux. Tech Note: Incompetent SPJ and SSV. Competent SFJ, GSV, and AASV. AASV joins into GSV at distal thigh. Patent varicose vein dist/med calf 2.1mm with 0s reflux. Patent varicose vein dist/med thigh arising off of GSV 2.5mm with 0s reflux. Patent varicose vein mid/post calf 2.9mm with 0s reflux. CONCLUSION: 1. Dilated, incompetent right great saphenous vein and left small saphenous vein with a few associated branch saphenous varicosities. 2. Consultation for venous ablation is recommended. Dictated by: Aashish Gil M.D. on 02/28/2022 at 09:44 Approved by: Aashish Gil M.D. on 02/28/2022 at 09:48 [facility] TITA CADon 01-21-2022 MG MAMM SCREEN 3D TITA CAD Patient: JB ESTRELLA Exam Date: 01/21/2022 : 1950 Gender:F Ordering : DR ALDEN JAMISON D.O. Admission #: [id number] Family : Order #: [id number] CLICK HERE TO VIEW EXAM RADIOLOGY REPORT PROCEDURE: MAMMOGRAM SCREENING 3D BILATERAL CAD COMPARISON: MG MAMM SCREEN 3D TITA CAD, 01/17/2021. MG MAMM SCREEN TITA W CAD, 01/12/2020. INDICATIONS: Screening mammography Calculator Name NCI Breast Cancer Risk Assessment Tool 5 Year Breast Cancer Risk 3.70% Lifetime Breast Cancer Risk 9.40% Personal Breast Cancer No Personal Ovarian Cancer No Treatments None Family Cancers Sister with breast cancer at age 51; Mother with lung cancer at age 62. LOCATION: [facility] BREAST COMPOSITION: Scattered areas fibroglandular density. FINDINGS: DIAGNOSTIC CATEGORY 2--BENIGN FINDING: Scattered benign-appearing nodules are present. Scattered benign-appearing calcifications are present. Scattered benign-appearing lymph nodes are present. RIGHT BREAST: No significant suspicious finding. LEFT BREAST: No significant suspicious finding. RECOMMENDATIONS: ROUTINE MAMMOGRAM AND CLINICAL EVALUATION IN 12 MONTHS. PLEASE NOTE: A NORMAL MAMMOGRAM DOES NOT EXCLUDE THE POSSIBILITY OF BREAST CANCER. A CLINICALLY SUSPICIOUS PALPABLE LUMP SHOULD BE BIOPSIED. Dictated by: Reina Tan MD on 01/21/2022 at 14:32 Approved by: Reina Tan MD on 01/21/2022 at 14:35 Normal The [facility] URINALYSISOrdered By: Danielel de la rosa on 12-12-2021 Bacteria LM Ql (Urine sed) Trace /HPF Normal Trace/HPF [facility] UA Auto SS Bilirubin Ql (U) Negative (12/12/21 11:49 AM) Normal Negative [facility] UA Auto SS Calcium oxalate crystals LM Ql (Urine sed) Present (12/12/21 11:49 AM) Normal [facility] UA Auto SS Clarity (U) Cloudy *ABN* (12/12/21 11:49 AM) Invalid Interpretation Code Clear [facility] UA Auto SS Color (U) Yellow (12/12/21 11:49 AM) Normal Yellow [facility] UA Auto SS Crystals LM Ql (Urine sed) Present (12/12/21 11:49 AM) Normal [facility] UA Auto SS Epithelial cells.squamous LM.HPF (Urine sed) [#/Area] 0-2 /HPF Normal 0-2/HPF [facility] UA Auto SS Glucose Test strip (U) [Mass/Vol] Negative (12/12/21 11:49 AM) Normal Negative [facility] UA Auto SS Hemoglobin Ql (U) 3+ *ABN* (12/12/21 11:49 AM) Invalid Interpretation Code Negative [facility] UA Auto SS Ketones (U) [Mass/Vol] Trace *ABN* (12/12/21 11:49 AM) Invalid Interpretation Code Negative [facility] UA Auto SS [place].plasma/Lithi um.RBC (Bld) [Mass ratio] 4-20 /HPF Normal 0-3/HPF [facility] UA Auto SS Nitrite Ql (U) Negative (12/12/21 11:49 AM) Normal Negative [facility] UA Auto SS pH (U) 5.5 *NA* (12/12/21 11:49 AM) Invalid Interpretation Code 5.0 - 9.0 [facility] UA Auto SS Protein (U) [Mass/Vol] Negative (12/12/21 11:49 AM) Normal Negative [facility] UA Auto SS Specific gravity (U) [Rel density] >=1.030 *NA* (12/12/21 11:49 AM) Invalid Interpretation Code 1.005 - 1.030 [facility] UA Auto SS UA Spec Desc Clean Catch (12/12/21 11:49 AM) Normal [facility] UA Auto SS Urobilinogen Qn (U) 0.1623228 {[place]'U}/dL Normal 0.0 - 1.0 EU/dL [facility] UA Auto SS WBC Auto Ql (U) Negative (12/12/21 11:49 AM) Normal Negative [facility] UA Auto SS WBC LM.HPF (Urine sed) [#/Area] 0-5 /HPF Normal 0-5/HPF [facility] UA Auto SS Vital Signs Date Time Vital Sign Value Performing Clinician Facility 05-07-2023 08:03-0400 Blood Pressure Location [facility] [facility] 05-07-2023 08:03-0400 Diastolic blood pressure 73 mm[Hg] Ramila Pradhan [facility] 05-07-2023 08:03-0400 Heart rate 70 /min Ramila Pradhan [facility] 05-07-2023 08:03-0400 Respiratory rate 16 /min Ramila Pradhan [facility] 05-07-2023 08:03-0400 Systolic blood pressure 127 mm[Hg] Ramila Pradhan [facility] 04-22-2023 08:45-0400 Body height 162.56 cm Alden Ball Other [employer] Other 04-22-2023 08:45-0400 Body mass index (BMI) [Ratio] 36.8 kg/m2 Alden Ball Other [employer] Other 04-22-2023 08:45-0400 Body weight 97.25 kg Alden Ball Other [facility] Other 04-22-2023 08:45-0400 Diastolic blood pressure 83 mm[Hg] Alden Ball Other [facility] Other 04-22-2023 08:45-0400 Respiratory rate 12 /min Alden Ball Other [employer] Other 04-22-2023 08:45-0400 Systolic blood pressure 135 mm[Hg] Alden Ball Other [facility] Other 12-30-2022 08:45-0400 Body height 162.56 cm Alden Ball Other [facility] Other 12-30-2022 08:45-0400 Body mass index (BMI) [Ratio] 37.35 kg/m2 Alden Ball Other [employer] Other 12-30-2022 08:45-0400 Body weight 98.7 kg Alden Ball Other [facility] Other 12-30-2022 08:45-0400 Diastolic blood pressure 74 mm[Hg] Alden Ball Other [facility] Other 12-30-2022 08:45-0400 Respiratory rate 12 /min Alden Ball Other [facility] Other 12-30-2022 08:45-0400 Systolic blood pressure 121 mm[Hg] Alden Ball Other [facility] Other 11-01-2022 10:30-0400 Body height 162.56 cm Alden Ball Other [facility] Other 11-01-2022 10:30-0400 Body mass index (BMI) [Ratio] 37.72 kg/m2 Alden Ball Other [employer] Other 11-01-2022 10:30-0400 Body weight 99.7 kg Alden Ball Other [employer] Other 11-01-2022 10:30-0400 Diastolic blood pressure 72 mm[Hg] Alden Ball Other [employer] Other 11-01-2022 10:30-0400 Respiratory rate 12 /min Alden Ball Other [facility] Other 11-01-2022 10:30-0400 Systolic blood pressure 122 mm[Hg] Alden Ball Other [facility] Other 05-01-2022 08:17-0400 Blood Pressure Location Ramila Lue [facility] 05-01-2022 08:17-0400 Diastolic blood pressure 80 mm[Hg] Ramila Lue [facility] 05-01-2022 08:17-0400 Heart rate 74 /min Ramila Lue [facility] 05-01-2022 08:17-0400 Systolic blood pressure 132 mm[Hg] Ramila Lue [facility] 12-12-2021 11:07-0400 Blood Pressure Location Ramila Lue [facility] 12-12-2021 11:07-0400 Diastolic blood pressure 83 mm[Hg] Ramila Lue [facility] 12-12-2021 11:07-0400 Heart rate 69 /min Ramila Lue [facility] 12-12-2021 11:07-0400 Respiratory rate 16 /min Ramila Lue [facility] 12-12-2021 11:07-0400 Systolic blood pressure 135 mm[Hg] Ramila Lue [facility] Encounters Encounter Date Encounter Type Care Provider Facility Start: 05-12-2024 ambulatory Ramila Pradhan Facility:[facility] Start: 06-25-2023 End: 06-25-2023 ambulatory DEANA LOMAS Not Available Start: 06-10-2023 End: 06-10-2023 ambulatory Alden Jamison Other [employer] Other Start: 06-10-2023 Telephone encounter Alden Jamison Nate Jamison [facility] Start: 06-09-2023 End: 06-09-2023 ambulatory GAIL NAVA Not Available Start: 05-07-2023 End: 05-08-2023 ambulatory Ramila Pradhan Facility:[facility] [place] Start: 05-07-2023 End: 05-07-2023 Patient encounter procedure Ramila Pradhan [facility] Start: 04-22-2023 End: 04-22-2023 ambulatory Alden Jamison Other [employer] Other Start: 04-22-2023 Office outpatient vi sit 15 minutes Alden Ball [facility] Start: 02-03-2023 End: 02-03-2023 ambulatory Alden Jamison Other [employer] Other Start: 02-03-2023 Telephone encounter Alden Jamison [facility] Start: 01-24-2023 End: 01-24-2023 ambulatory Alden Jamison Other [employer] Other Start: 01-24-2023 Telephone encounter Adlen Jamison [facility] Start: 01-08-2023 End: 01-08-2023 ambulatory Alden Jamison Other [employer] Other Start: 01-08-2023 Telephone encounter Alden Jamison [facility] Start: 12-30-2022 End: 12-30-2022 ambulatory Alden Jamison Other [employer] Other Start: 12-30-2022 Office outpatient vi sit 15 minutes Alden Jamison [facility] Start: 12-12-[address] ALDEN JAMISON Facili ty:[facility] Start: 12-05-2022 End: 12-06-[address] REINA TAN Facility:[facility] Start: 11-28-2022 End: 11-29-[address] REINA TAN Facility:[facility] Start: 11-25-2022 End: 11-26-[address] REINA TAN Facility:[facility] Start: 11-13-2022 End: 11-14-[address] REINA TAN Facility:[facility] Start: 11-06-2022 End: 11-07-[address] REINA TAN Facility:[facility] Start: 11-04-2022 End: 11-04-2022 ambulatory Alden Jamison Other [employer] Other Start: 11-04-2022 Telephone encounter Alden Jamison [facility] Start: 11-01-2022 End: 11-01-2022 ambulatory Alden Jamison Other [employer] Other Start: 11-01-2022 Office outpatient vi sit 15 minutes Alden Jamison [facility] Start: 10-23-2022 End: 10-24-[address] REINA TAN Facility:[facility] Start: 10-18-2022 End: 10-19-[address] REINA TAN Facility:[facility] Start: 05-28-2022 End: 05-29-[address] DOCTOR JUAN Facility:[facility] Start: 05-27-2022 End: 05-28-[address] DOCTOR JUAN Facility:[facility] Start: 05-01-2022 End: 05-01-2022 Patient encounter procedure Ramila Pradhan [facility] Start: 02-28-2022 End: 03-01-[address] REINA TAN Facility:[facility] Start: 01-22-2022 End: 01-22-2022 Patient encounter procedure Ed Kramer Jr. [facility] Start: 01-21-2022 End: 01-22-[address] ALDEN JAMISON Facility:[facility] Start: 12-12-2021 End: 12-12-2021 Lab Drop off Ramila Pradhan [facility] Start: 12-12-2021 End: 12-12-2021 Patient encounter procedure Ramila Pradhan [facility] Procedures Date Procedure Procedure Detail Performing Clinician Start: 2020 Cataract extraction and insertion of intraocular lens Ramila Lue Start: 03-21-2020 Cataract extraction and insertion of intraocular lens Ramila Lue Cholecystectomy Ramila Lue Procedure on knee Ramila Lue Immunizations Immunization Date Immunization Notes Care Provider Sulaiman hebert 04-22-2023 influenza, high dose seasonal, preservative-free Alden Jamison Other [employer] Other 12-30-2022 zoster vaccine recombinant Alden Jamison Other [facility] 05-27-2022 influenza virus vaccine, split virus (incl. purified surface antigen) Alden Jamison Other [employer] Other 06-30-2021 SARS-CoV-2 (COVID-19 ) Ad26 vaccine, recombinant Ramila Pradhan [facility] Comment on above: Result Comment: 2021: [id number] 05-25-2021 influenza virus vaccine, split virus (incl. purified surface antigen) Alden Jamison Other [employer] Other 05-25-2021 influenza virus vaccine, unspecified formulation Ramila Pradhan [facility] 09-29-2020 COVID-19 vaccine, vector-nr, rS-Ad26, PF, 0.5 mL; Translations: [Susana COVID-19 Vaccine] Ramila Lue [facility] Comment on above: Reason for Medicatio n: Prophylaxis 05-08-2020 influenza virus vacc ine, split virus (incl. purified surface antigen) Alden Jamison Other [employer] Other 05-08-2020 influenza virus vacc ine, unspecified formulation Ramila Lue [facility] 05-18-2019 influenza virus vacc ine, split virus (incl. purified surface antigen) Alden Jamison Other [employer] Other 05-06-2018 influenza virus vacc ine, split virus (incl. purified surface antigen) Alden Jamison Other [employer] Other 05-06-2018 influenza virus vacc ine, unspecified formulation Ramila Lue [facility] 04-24-2017 influenza virus vacc ine, split virus (incl. purified surface antigen) Aldne Jamison Other [employer] Other 04-24-2017 influenza virus vacc ine, unspecified formulation Ramila Lue [facility] 04-01-2017 influenza virus vacc ine, unspecified formulation Ramila Lue [facility] 05-28-2016 pneumococcal polysaccharide vaccine, 23 valent Ramila Lue [facility] 04-22-2016 influenza virus vacc ine, split virus (incl. purified surface antigen) Alden Jamison Other [employer] Other 04-22-2016 influenza virus vacc ine, unspecified formulation Ramila Lue [facility] 04-22-2016 pneumococcal conjuga te vaccine, 13 valent Ramila Lue [facility] 04-28-2015 influenza virus vacc ine, split virus (incl. purified surface antigen) Alden Jamison Other [employer] Other 04-19-2015 pneumococcal conjuga te vaccine, 13 valent Alden Jamison Other [employer] Other Payers Date Payer Category Payer Unknown [id number] [id number] 1960 Medicare [id number] 2.1 [id number] 1960 Self-pay [id number] 1960 Unknown [id number] 1949 Unknown [id number] 2.16.84 [id number] 1949 Unknown [id number] 2.16.84 0.1.148464.3.579.2.593 1949 Unknown [id number] 2.16.84 0.1.060919.3.579.2.593 1949 Unknown [id number] 2.16.84 0.1.896438.3.579.2.593 1949 Unknown [id number] 2.16.84 0.1.549418.3.579.2.593 1949 Unknown [id number] 2.16.84 0.1.024665.3.579.2.593 1949 Unknown [id number] 2.16.84 0.1.219465.3.579.2.593 1949 Unknown [id number] 2.16.84 0.1.887436.3.579.2.593 1949 Unknown [id number] 2.16.84 0.1.085611.3.579.2.593 1949 Unknown [id number] 2.16.84 0.1.796965.3.579.2.593 1949 Unknown [id number] 2.16.8 40.1.310608.3.579.2.727 1949 Unknown [id number] 2.16.8 40.1.493386.3.579.2.727 1949 Unknown [id number] 2.16.840 .1.502906.3.579.2.1259 1949 Unknown [id number] 2.16.840. [id number] Unknown [id number] 2.16.84 [id number] Unknown [id number] 2.16.84 [id number] Social History Date Type Detail Facility Start: 12-12-2021 End: 05-07-2023 Tobacco smoking status Ex-smoker (finding) [facility] Sex Assigned At Female [facility] Tobacco smoking status Never [facility] Medical Equipment Procedure Code Equipment Code Equipment Origin al Text Equipment Identifier Dates [id number] FDA Start: 03-21-2020 [id number] FDA Start: 2020 Functional Status Date Assessment Result Facility 05-07-2023 Functional Status N/A [facility] 05-01-2022 Functional Status N/A [facility] Clinical Notes 12-12-2021 to 05-07-2023 Note Date & Type Note Facility 05-07-2023 Hospital Discharg e instructions Patient Education 05/07/2023 08:46:21 Dietary Guidelines to Help Prevent Kidney Stones Dietary Guidelines to Help Prevent Kidney Stones Kidney stones are deposits of minerals and salts that form inside your kidneys. Your risk of developing kidney stones may be greater depending on your diet, your lifestyle, the medicines you take, and whether you have certain medical conditions. Most people can lower their chances of developing kidney stones by following the instructions below. Your dietitian may give you more specific instructions depending on your overall health and the type of kidney stones you tend to develop. What are tips for following this plan? Reading food labels Choose foods with no salt added or low-salt labels. Limit your salt (sodium) intake to less than 1,500 mg a day. Choose foods with calcium for each meal and snack. Try to eat about 300 mg of calcium at each meal. Foods that contain 200 500 mg of calcium a serving include: ?8 oz (237 mL) of milk, eknhzpx-fapgfksjtdjg-rnhqn milk, and calcium-fortifiedfruit juice. Calcium-fortified means that calcium has been added to these drinks. ?8 oz (237 mL) of kefir, yogurt, and soy yogurt. ?4 oz (114 g) of tofu. ?1 oz (28 g) of cheese. ?1 cup (150 g) of dried figs. ?1 cup (91 g) of cooked broccoli. ?One 3 oz (85 g) can of sardines or mackerel. Most people need 1,000 1,500 mg of calcium a day. Talk to your dietitian about how much calcium is recommended for you. Shopping Buy plenty of fresh fruits and vegetables. Most people do not need to avoid fruits and vegetables, even if these foods contain nutrients that may contribute to kidney stones. When shopping for convenience foods, choose: ?Whole pieces of fruit. ?Pre-made salads with dressing on the side. ?Low-fat fruit and yogurt smoothies. Avoid buying frozen meals or prepared deli foods. These can be high in sodium. Look for foods with live cultures, such as yogurt and kefir. Choose high-fiber grains, such as whole-wheat breads, oat bran, and wheat cereals. Cooking Do not add salt to food when cooking. Place a salt shaker on the table and allow each person to add his or her own salt to taste. Use vegetable protein, such as beans, textured vegetable protein (TVP), or tofu, instead of meat in pasta, casseroles, and soups. Meal planning Eat less salt, if told by your dietitian. To do this: ?Avoid eating processed or pre-made food. ?Avoid eating fast food. Eat less animal protein, including cheese, meat, poultry, or fish, if told by your dietitian. To do this: ?Limit the number of times you have meat, poultry, fish, or cheese each week. Eat a diet free of meat at least 2 days a week. ?Eat only one serving each day of meat, poultry, fish, or seafood. ?When you prepare animal protein, cut pieces into small portion sizes. For most meat and fish, one serving is about the size of the palm of your hand. Eat at least five servings of fresh fruits and vegetables each day. To do this: ?Keep fruits and vegetables on hand for snacks. ?Eat one piece of fruit or a handful of berries with breakfast. ?Have a salad and fruit at lunch. ?Have two kinds of vegetables at dinner. Limit foods that are high in a substance called oxalate. These include: ?Spinach (cooked), rhubarb, beets, sweet potatoes, and Kenyan chard. ?Peanuts. ?Potato chips, beninese fries, and baked potatoes with skin on. ?Nuts and nut products. ?Chocolate. If you regularly take a diuretic medicine, make sure to eat at least 1 or 2 servings of fruits or vegetables that are high in potassium each day. These include: ?Avocado. ?Banana. ?[place], prune, carrot, or tomato juice. ?Baked potato. ?Cabbage. ?Beans and split peas. Lifestyle Drink enough fluid to keep your urine pale yellow. This is the most important thing you can do. Spread your fluid intake throughout the day. If you drink alcohol: ?Limit how much you use to: ?0 1 drink a day for women who are not . ?0 2 drinks a day for men. ?Be aware of how much alcohol is in your drink. In the [place] one drink equals one 12 oz bottle of beer (355 mL), one 5 oz glass of wine (148 mL), or one 1 oz glass of hard liquor (44 mL). Lose weight if told by your health care provider. Work with your dietitian to find an eating plan and weight loss strategies that work best for you. General information Talk to your health care provider and dietitian about taking daily supplements. You may be told the following depending on your health and the cause of your kidney stones: ?Not to take supplements with vitamin C. ?To take a calcium supplement. ?To take a daily probiotic supplement. ?To take other supplements such as magnesium, fish oil, or vitamin B6. Take udvm-kzi-hemsajk and prescription medicines only as told by your health care provider. These include supplements. What foods should I limit? Limit your intake of the following foods, or eat them as told by your dietitian. Vegetables Spinach. Rhubarb. Beets. Canned vegetables. Pickles. Olives. Baked potatoes with skin. Grains Wheat bran. Baked goods. Salted crackers. Cereals high in sugar. Meats and other proteins Nuts. Nut butters. Large portions of meat, poultry, or fish. Salted, precooked, or cured meats, such as sausages, meat loaves, and hot dogs. Dairy Cheese. Beverages Regular soft drinks. Regular vegetable juice. Seasonings and condiments Seasoning blends with salt. Salad dressings. Soy sauce. Ketchup. Barbecue sauce. Other foods Canned soups. Canned pasta sauce. Casseroles. Pizza. Lasagna. Frozen meals. Potato chips. Azeri fries. The items listed above may not be a complete list of foods and beverages you should limit. Contact a dietitian for more information. What foods should I avoid? Talk to your dietitian about specific foods you should avoid based on the type of kidney stones you have and your overall health. Fruits Grapefruit. The item listed above may not be a complete list of foods and beverages you should avoid. Contact a dietitian for more information. Summary Kidney stones are deposits of minerals and salts that form inside your kidneys. You can lower your risk of kidney stones by making changes to your diet. The most important thing you can do is drink enough fluid. Drink enough fluid to keep your urine pale yellow. Talk to your dietitian about how much calcium you should have each day, and eat less salt and animal protein as told by your dietitian. This information is not intended to replace advice given to you by your health care provider. Make sure you discuss any questions you have with your health care provider. Document Revised: 03/25/2022 Document Reviewed: 03/25/2022 [employer] Patient Education 2022 [employer]. Follow Up Care 05/01/2022 08:32:42 With:Lorne GONZALEZ, Ramila Pascal, URL, URO Address: When: Unknown Comments:Gerald Barragan Ureteroscopy/LaserLitho [facility] 04-22-2023 Evaluation note Encounter Date Diagnosis Assessment Notes Mar, Acute left-sided low back pain without sciatica (ICD-10 - M54.50) Push fluids ER or call office w/ recurrent flank pain or hematuria Mar, Gross hematuria (ICD-10 - R31.0) Push fluids CT abd/pelvis to r/o renal tumor, renal stone, hydronephrosis f/u for hematuria evaluation [employer] Other 06-05-2023 Evaluation note* Encounter Date Diagnosis Assessment Notes Treatment Notes Treatment Clinical Notes Dec, Cervical spondylosis (ICD-10 - M47.812) ROM exercises, ice/heat and rest. Begin NSAIDs and muscles relaxant at night. PT if no improvement. XR Dec, Torticollis (ICD-10 - M43.6) Heat/ice and NSAIDs/muscle relaxant. PT if no improvement Dec, Dry mouth (ICD-10 - R68.2) Push water, lozenges [employer] Other 04-07-2023 Evaluation note* Encounter Date Diagnosis Assessment Notes Treatment Notes Treatment Clinical Notes Oct, Concussion without loss of consciousness, initial encounter (ICD-10 - S06.0X0A) Ice and Tylenol. Rest Oct, Contusion of right hand, initial encounter (ICD-10 - S60.221A) Elevate and ice Oct, Acute strain of neck muscle, initial encounter (ICD-10 - S16.1XXA) ROM exercises, heat and lidocaine Oct, Contusion of left knee, initial encounter (ICD-10 - S80.02XA) Ice, Tylenol and Motrin. ROM exercises, Voltaren Gel [employer] Other 10-05-2022 Hospital Discharge instructions Patient Education 05/01/2022 08:20:59 Kegel Exercises Kegel Exercises Kegel exercises can help strengthen your pelvic floor muscles. The pelvic floor is a group of muscles that support your rectum, small intestine, and bladder. In females, pelvic floor muscles also help support the womb (uterus). These muscles help you control the flow of urine and stool. Kegel exercises are painless and simple, and they do not require any equipment. Your provider may suggest Kegel exercises to: Improve bladder and bowel control. Improve sexual response. Improve weak pelvic floor muscles after surgery to remove the uterus (hysterectomy) or (females). Improve weak pelvic floor muscles after prostate gland removal or surgery (males). Kegel exercises involve squeezing your pelvic floor muscles, which are the same muscles you squeezewhen you try to stop the flow of urine or keep from passing gas. The exercises can be done while sitting, standing, or lying down, but it is best to vary your position. Exercises How to do Kegel exercises: 1.Squeeze your pelvic floor muscles tight. You should feel a tight lift in your rectal area. If youare a female, you should also feel a tightness in your vaginal area. Keep your stomach, buttocks, and legs relaxed. 2.Hold the muscles tight for up to 10 seconds. 3.Breathe normally. 4.Relax your muscles. 5.Repeat as told by your health care provider. Repeat this exercise daily as told by your health care provider. Continue to do this exercise for at least 4 6 weeks, or for as long as told by your health care provider. You may be referred to a physical therapist who can help you learn more about how to do Kegel exercises. Depending on your condition, your health care provider may recommend: Varying how long you squeeze your muscles. Doing several sets of exercises every day. Doing exercises for several weeks. Making Kegel exercises a part of your regular exercise routine. This information is not intended to replace advice given to you by your health care provider. Make sure you discuss any questions you have with your health care provider. Document Released: 06/30/2013 Document Revised: 03/03/2019 Document Reviewed: 03/03/2019 [employer] Patient Education 2020 [employer] 05/01/2022 08:20:59 Calorie Counting for Weight Loss Calorie Counting for Weight Loss Calories are units of energy. Your body needs a certain amount of calories from food to keep you going throughout the day. When you eat more calories than your body needs, your body stores the extra calories as fat. When you eat fewer calories than your body needs, your body ramon fat to get the energy it needs. Calorie counting means keeping track of how many calories you eat and drink each day. Calorie counting can be helpful if you need to lose weight. If you make sure to eat fewer calories than your bodyneeds, you should lose weight. Ask your health care provider what a healthy weight is for you. For calorie counting to work, you will need to eat the right number of calories in a day in order to lose a healthy amount of weight per week. A dietitian can help you determine how many calories youneed in a day and will give you suggestions on how to reach your calorie goal. A healthy amount of weight to lose per week is usually 1 2 lb (0.5 0.9 kg). This usually means thatyour daily calorie intake should be reduced by 500 750 calories. Eating 1,200 1,500 calories per day can help most women lose weight. Eating 1,500 1,800 calories per day can help most men lose weight. What is my plan? My goal is to have calories per day. If I have this many calories per day, I should lose around pounds per week. What do I need to know about calorie counting? In order to meet your daily calorie goal, you will need to: Find out how many calories are in each food you would like to eat. Try to do this before you eat. Decide how much of the food you plan to eat. Write down what you ate and how many calories it had. Doing this is called keeping a food log. To successfully lose weight, it is important to balance calorie counting with a healthy lifestyle that includes regular activity. Aim for 150 minutes of moderate exercise (such as walking) or 75 minutes of vigorous exercise (such as running) each week. Where do I find calorie information? The number of calories in a food can be found on a Nutrition Facts label. If a food does not have aNutrition Facts label, try to look up the calories online or ask your dietitian for help. Remember that calories are listed per serving. If you choose to have more than one serving of a food, you will have to multiply the calories per serving by the amount of servings you plan to eat. Forexample, the label on a package of bread might say that a serving size is 1 slice and that there are 90 calories in a serving. If you eat 1 slice, you will have eaten 90 calories. If you eat 2 slices, you will have eaten 180 calories. How do I keep a food log? Immediately after each meal, record the following information in your food log: What you ate. Don't forget to include toppings, sauces, and other extras on the food. How much you ate. This can be measured in cups, ounces, or number of items. How many calories each food and drink had. The total number of calories in the meal. Keep your food log near you, such as in a small notebook in your pocket, or use a mobile michelle or website. Some programs will calculate calories for you and show you how many calories you have left forthe day to meet your goal. What are some calorie counting tips? Use your calories on foods and drinks that will fill you up and not leave you hungry: ?Some examples of foods that fill you up are nuts and nut butters, vegetables, lean proteins, and high-fiber foods like whole grains. High-fiber foods are foods with more than 5 g fiber per serving. ?Drinks such as sodas, specialty coffee drinks, alcohol, and juices have a lot of calories, yet do not fill you up. Eat nutritious foods and avoid empty calories. Empty calories are calories you get from foods or beverages that do not have many vitamins or protein, such as candy, sweets, and soda. It is better to have a nutritious high-calorie food (such as an avocado) than a food with few nutrients (such as a bag of chips). Know how many calories are in the foods you eat most often. This will help you calculate calorie counts faster. Pay attention to calories in drinks. Low-calorie drinks include water and unsweetened drinks. Pay attention to nutrition labels for low fat or fat free foods. These foods sometimes have thesame amount of calories or more calories than the full fat versions. They also often have added sugar, starch, or salt, to make up for flavor that was removed with the fat. Find a way of tracking calories that works for you. Get creative. Try different apps or programs ifwriting down calories does not work for you. What are some portion control tips? Know how many calories are in a serving. This will help you know how many servings of a certain food you can have. Use a measuring cup to measure serving sizes. You could also try weighing out portions on a kitchenscale. With time, you will be able to estimate serving sizes for some foods. Take some time to put servings of different foods on your favorite plates, bowls, and cups so you know what a serving looks like. Try not to eat straight from a bag or box. Doing this can lead to overeating. Put the amount you would like to eat in a cup or on a plate to make sure you are eating the right portion. Use smaller plates, glasses, and bowls to prevent overeating. Try not to multitask (for example, watch TV or use your computer) while eating. If it is time to eat, sit down at a table and enjoy your food. This will help you to know when you are full. It will also help you to be aware of what you are eating and how much you are eating. What are tips for following this plan? Reading food labels Check the calorie count compared to the serving size. The serving size may be smaller than what youare used to eating. Check the source of the calories. Make sure the food you are eating is high in vitamins and proteinand low in saturated and trans fats. Shopping Read nutrition labels while you shop. This will help you make healthy decisions before you decide to purchase your food. Make a grocery list and stick to it. Cooking Try to cook your favorite foods in a healthier way. For example, try baking instead of frying. Use low-fat dairy products. Meal planning Use more fruits and vegetables. Half of your plate should be fruits and vegetables. Include lean proteins like poultry and fish. How do I count calories when eating out? Ask for smaller portion sizes. Consider sharing an entree and sides instead of getting your own entree. If you get your own entree, eat only half. Ask for a box at the beginning of your meal and put the rest of your entree in it so you are not tempted to eat it. If calories are listed on the menu, choose the lower calorie options. Choose dishes that include vegetables, fruits, whole grains, low-fat dairy products, and lean protein. Choose items that are boiled, broiled, grilled, or steamed. Stay away from items that are buttered,battered, fried, or served with cream sauce. Items labeled crispy are usually fried, unless stated otherwise. Choose water, low-fat milk, unsweetened iced tea, or other drinks without added sugar. If you want an alcoholic beverage, choose a lower calorie option such as a glass of wine or light beer. Ask for dressings, sauces, and syrups on the side. These are usually high in calories, so you should limit the amount you eat. If you want a salad, choose a garden salad and ask for grilled meats. Avoid extra toppings like marquez, cheese, or fried items. Ask for the dressing on the side, or ask for olive oil and vinegar or lemon to use as dressing. Estimate how many servings of a food you are given. For example, a serving of cooked rice is cup orabout the size of half a baseball. Knowing serving sizes will help you be aware of how much food you are eating at restaurants. The list below tells you how big or small some common portion sizes arebased on everyday objects: ?1 oz 4 stacked dice. ?3 oz 1 deck of cards. ?1 tsp 1 . ?1 Tbsp a ping-pong ball. ?2 Tbsp 1 ping-pong ball. ? cup baseball. ?1 cup 1 baseball. Summary Calorie counting means keeping track of how many calories you eat and drink each day. If you eat fewer calories than your body needs, you should lose weight. A healthy amount of weight to lose per week is usually 1 2 lb (0.5 0.9 kg). This usually means reducing your daily calorie intake by 500 750 calories. The number of calories in a food can be found on a Nutrition Facts label. If a food does not have aNutrition Facts label, try to look up the calories online or ask your dietitian for help. Use your calories on foods and drinks that will fill you up, and not on foods and drinks that will leave you hungry. Use smaller plates, glasses, and bowls to prevent overeating. This information is not intended to replace advice given to you by your health care provider. Make sure you discuss any questions you have with your health care provider. Document Released: 07/14/2006 Document Revised: 04/02/2019 Document Reviewed: 06/13/2017 [employer] Patient Education 2020 [employer]. Follow Up Care 12/12/2021 12:13:24 With:Lorne GONZALEZ, TEDDY Gonzalez, URO Address: When:Within 1 Year(s) [facility] 05-18-2022 Hospital Discharge instructions Patient Education 12/12/2021 11:46:13 Hematuria, Adult Hematuria, Adult Hematuria is blood in the urine. Blood may be visible in the urine, or it may be identified with a test. This condition can be caused by infections of the bladder, urethra, kidney, or prostate. Otherpossible causes include: Kidney stones. Cancer of the urinary tract. Too much calcium in the urine. Conditions that are passed from parent to child (inherited conditions). Exercise that requires a lot of energy. Infections can usually be treated with medicine, and a kidney stone usually will pass through your urine. If neither of these is the cause of your hematuria, more tests may be needed to identify the cause of your symptoms. It is very important to tell your health care provider about any blood in your urine, even if it ispainless or the blood stops without treatment. Blood in the urine, when it happens and then stops and then happens again, can be a symptom of a very serious condition, including cancer. There is no pain in the initial stages of many urinary cancers. Follow these instructions at home: Medicines Take [id number] and prescription medicines only as told by your health care provider. If you were prescribed an antibiotic medicine, take it as told by your health care provider. Do notstop taking the antibiotic even if you start to feel better. Eating and drinking Drink enough fluid to keep your urine clear or pale yellow. It is recommended that you drink 3 4 quarts (2.8 3.8 L) a day. If you have been diagnosed with an infection, it is recommended that you drink cranberry juice in addition to large amounts of water. Avoid caffeine, tea, and carbonated beverages. These tend to irritate the bladder. Avoid alcohol because it may irritate the prostate (men). General instructions If you have been diagnosed with a kidney stone, follow your health care provider's instructions about straining your urine to catch the stone. Empty your bladder often. Avoid holding urine for long periods of time. If you are female: ?After a bowel movement, wipe from front to back and use each piece of toilet paper only once. ?Empty your bladder before and after sex. Pay attention to any changes in your symptoms. Tell your health care provider about any changes or any new symptoms. It is your responsibility to get your test results. Ask your health care provider, or the department performing the test, when your results will be ready. Keep all follow-up visits as told by your health care provider. This is important. Contact a health care provider if: You develop back pain. You have a fever. You have nausea or vomiting. Your symptoms do not improve after 3 days. Your symptoms get worse. Get help right away if: You develop severe vomiting and are unable take medicine without vomiting. You develop severe pain in your back or abdomen even though you are taking medicine. You pass a large amount of blood in your urine. You pass blood clots in your urine. You feel very weak or like you might faint. You faint. Summary Hematuria is blood in the urine. It has many possible causes. It is very important that you tell your health care provider about any blood in your urine, even ifit is painless or the blood stops without treatment. Take [id number]-[id number] and prescription medicines only as told by your health care provider. Drink enough fluid to keep your urine clear or pale yellow. This information is not intended to replace advice given to you by your health care provider. Make sure you discuss any questions you have with your health care provider. Document Released: 07/14/2006 Document Revised: 12/08/2019 Document Reviewed: 08/16/2017 [employer] Patient Education 2020 [employer] Follow Up Care 06/06/2021 10:30:38 With:Lorne GONZALEZ, TEDDY Gonzalez, URO Address: When:3 months [facility] evaluation + Plan note Future Appointments Appointment Date:12/21/2021 07:30:00 AM Scheduled Provider: Location:.[place] Appointment Type:PT Pelvic Floor/UI Eval () Appointment Date:05/01/2022 08:00:00 AM Scheduled Provider:Ramila Pradhan MD Location:[facility] Appointment Type:URO Office Visit [facility] evaluation + Plan note Future Appointments Appointment Date:12/21/2021 07:30:00 AM Scheduled Provider: Location:.[place] Appointment Type:PT Pelvic Floor/UI Eval (FT) Appointment Date:05/01/2022 08:00:00 AM Scheduled Provider:Ramila Pradhan MD Location:[facility] Appointment Type:URO Office Visit Diagnostic Tests Pending * [facility] Appointment Date:02/06/2022 11:15:00 AM Scheduled Provider: Location:.[place] Appointment Type:PT Pelvic Floor/UI Re-Eval (FT) Appointment Date:02/25/2022 07:00:00 AM Scheduled Provider: Location[place] Appointment Type:PT Pelvic Floor/UI (FT) Appointment Date:03/04/2022 07:00:00 AM Scheduled Provider: Location[place] Appointment Type:PT Pelvic Floor/UI (FT) Appointment Date:03/11/2022 07:00:00 AM Scheduled Provider: Location[facility] Appointment Type:PT Pelvic Floor/UI (FT) Appointment Date:03/18/2022 08:30:00 AM Scheduled Provider: Location[place] Appointment Type:PT Pelvic Floor/UI Re-Eval (FT) Appointment Date:05/01/2022 08:00:00 AM Scheduled Provider:Ramila Pradhan MD Location:[facility] Appointment Type:URO Office Visit [facility] evaluation + Plan note Future Appointments Appointment Date:05/07/2023 08:00:00 AM Scheduled Provider:Ramila Pradhan MD Location:[facility] Appointment Type:URO Office Visit [facility] evaluation noteNo [facility] [employer] Other History general Narrative - Reported* Type Description Date Medical History Arthritis of knee, left Medical History Urinary incontinence, mixed Medical History Rectal bleeding Medical History Nicotine dependence, cigarettes, in remission Medical History Acute bronchitis due to other sp ecified organisms Medical History Osteopenia of lumbar spine Medical History Chronic venous insufficiency Medical History Microcytic hypochromic anemia Medical History Postmenopausal Surgical History EVLT OF RIGHT GSV 09/2022 Surgical History CATARACT EXTRACTION - BILATERAL Surgical History LASER SURGERY Surgical History ORAL SURGERY Surgical History WRIST SURGERY Surgical History C- SECTION Surgical History ANKLE SURGERY Surgical History CHOLECYSTECTOMY 2013 Surgical History COLONOSCOPY Hospitalization History SEE SURGICAL HX [employer] Other Hospital course Narrative No data available for this section [facility] Hospital Discharge instructions No data available for this section [facility] No data available for this section [facility] Summary Purpose Family History No Family History Records Found No data available for this section No Family History Records FoundNo Family History Records Found Advance Directives No Advanced Directives Records FoundNo Advanced Directives Records FoundNo Advanced Directives Records Found Additional Source Comments Care Team (unrecognized sect ion and content) Personnel Name: ALDEN JAMISON DO Address: [address] [place] [address] Personnel Name: ALDEN JAMISON DO Address: Address: [address] [place] [address] Personnel Name: ALDEN JAMISON DO Address: Address: [address] [place] [address] REASON FOR VISIT (unrecogniz ed section and content) FELL HURT SHOULDER AND NECKU pdateNeck PainXray resultsMammogram resultsmedication questionTBHLab results INFORMATION SOURCE (unrecogn ized section and content) DATE CREATED AUTHOR 12/12/2022 [facility] DATE CREATED AUTHOR AUTHOR'S ORGANIZ ATION 05/13/2023 [facility] DATE CREATED AUTHOR AUTHOR'S ORGANIZ ATION 06/27/2023 [facility] EPIC FOR RECORDS PERTAINING TO PATIENTS WHO ARE OR HAVE BEEN ENROLLED IN A CHEMICAL DEPENDENCY/SUBSTANCEABUSE PROGRAM, SOME INFORMATION MAY BE OMITTED. This clinical summary was aggregated from multiple sources. Caution should be exercised in using it in the provision of clinical care. This summary normalizes information from multiple sources, and as a consequence, information in this document may materially change the coding, format and clinical context of patient data. In addition, data may be omitted in some cases. CLINICAL DECISIONS SHOULD BE BASED ON THE PRIMARY CLINICAL RECORDS. [facility]. provides no warranty or guarantee of the accuracy or completeness of information in this document.
== END 2023-06-09 07:43 | disposition home or self-care (01) ==
LOC: RAD 07:42
PROVIDERS: PCP Internal Medicine; Visit Provider Internal Medicine
DX: M85.88 Other specified disorders of bone density and structure, other site (principal); M85.80 Other specified disorders of bone density and structure, unspecified site
CPT/HCPCS: 77080

== ENCOUNTER 2023-06-09 20:41 | Outpatient (REF) | payer MEDICARE, OTHER, SELFPAY ==
[2023-06-13 15:11] LABS: Age Gdln ACOG Testing Note (.); Pap IG (Image Guided) Note (.)
== END 2023-06-09 20:42 | disposition home or self-care (01) ==
LOC: LAB 20:41
PROVIDERS: PCP Internal Medicine; Visit Provider Physician Assistant
DX: Z01.419 Encounter for gynecological examination (general) (routine) without abnormal findings (principal)
CPT/HCPCS: G0145

== ENCOUNTER 2023-10-01 07:46 | Outpatient (OUT) | payer MEDICARE, OTHER, SELFPAY ==
--- OUTSIDE RECORDS SUMMARY | 2023-10-01 07:51 | XMS_ITS | CCD ---
Author Name Unknown Address [address] [place] [address] Organization [facility] Care Team Providers Care Vice President Diversity Name Role Phone ALDEN JAMISON Primary Care Physician Alden Jamison DOMINICK, DR REINA Delgado Attending Unavailable WEST, [...] Unavailable BALL, DR HARO Primary Care Unavailable ZIEBER, DR AASHISH Zaldivar Consulting Unavailable WEST, DR [...] REINA Delgado Consulting Unavailable WEST, DR REINA Delgado Admitting Unavailable [...] Unavailable DOMINICK, DR REINA Delgado Consulting Unavailable SHAHEEN, DR HARO Primary Care Unavailable Ramila Pradhan Attending Unavailable Ramila Pradhan Attending Unavailable DEANA LOMAS Attending Unavailable GAIL NAVA Attending Unavailable Allergies Allergy Classification Reported Allergen(s) Allergy Type Date of Onset Reaction(s) Facility (5 sources) Latex; Translations: [latex] Drug allergy 11-13-2015 Eruption of skin (disorder) [facility] Medications Current Medications Medication Drug Class(es) Dates [...] Orally Once a day Active bacillus coagulans [id number] unt / inulin 250 mg oral capsule [...] sources) Arthritis; Translations: [Arthritis of left knee] 11-10-2021 Chronic Other bone disease and musculoskeletal deformities [...] Results Test Name Value Interpretation Reference Range Facility RAD - CT Reporton 05-12-2023 RAD - CT Report [id number] #1.00TIFF [facility] Reminderson 05-12-2023 Reminders - From: Angela Henriquez To: EU - Recalls Lue; Sent: 05/12/2023 11:22:11 EDT Show up: 03/28/2024 11:22:00 EDT Subject: KUB/JAK Reminder/Recall to be scheduled prior to patients 1 yr follow up 05/12/24 -patient uses [facility] Ambulatory Visit Summaryon 1 Ambulatory Visit Summary JB ESTRELLA :1950 Visit Date:05/07/2023 Ambulatory Visit Instructions Your Diagnosis Mixed incontinence Nocturia Asymptomatic microscopic hematuria Ureteral stone with hydronephrosis Tests Performed Urnls Dip Stick Auto w/o Microscopy POC 31090 CT Abdomen/Pelvis w/o Contrast -- Results Pending [...] TEDDY Gonzalez, URO When: Comments: Sched Lt Ureteroscopy/LaserLi tho Where: Medications What How Much When Instructions [...] Urnls Dip Stick Auto w/o Microscopy POC 06994 (05/07/2023) Bilirubin Urine Dipstick - Negative Blood Urine Dipstick - Negative Glucose Urine Dipstick - Negative Ketones Urine Dipstick - Negative Leukocytes Urine Dipstick - Negative Nitrite Urine Dipstick - Negative Protein Urine Dipstick - Trace Specific [place] Urine Dipstick - 1.025 Urine Appearance Urine [...] ? 8 oz (237 mL) of milk, calcium-fortifiednon -dairy milk, and calcium-fortifiedfru it juice. Calcium-fortified means that calcium has been [...] people ne (more content not included)... [facility] ED Note-Physicianon 05-07-20 ED Note-Physician [id number]. [id number] 9#1.00TIFF [facility] ED Note-Physician [id number]. [id number] 4#1.00TIFF [facility] Lab Reportson 05-07-2023 Lab Reports [id number]. [id number] 1#1.00TIFF [facility] Patient Educationon 05-07-20 Patient Education Nephrology Dietary Guidelines to Help [...] ? 8 oz (237 mL) of milk, calcium-fortifiednon -dairy milk, and calcium-fortifiedfru it juice. Calcium-fortified means that calcium has been [...] Spinach (cooked), rhubarb, beets, sweet potatoes, and English chard. ? Peanuts. ? Potato chips, serbian fries, and baked potatoes with skin on. ? Nuts and nut products. ? Chocolate. ? If you regularly take a diuretic medicine, make sure to eat at least 1 or 2 servings of fruits or vegetables that are high in potassium each day. These include: ? Avocado. ? Banana. ? [place], prune, carrot, or tomato juice. ? Baked [...] fish oil, or vitamin B6. ? Take taqg-awl-pljsvyj and prescription medicines only as told by your health care provider. These include supplements. What foods should I limit? Limit your in (more content not included)... [facility] RAD - CT Reporton 05-07-2023 RAD - CT Report [id number] #1.00TIFF [facility] Screenson 05-07-2023 Screens [id number] #1.00TIFF [facility] Urology Office/Clinic Noteon 05-07-2023 Urology Office/Clinic Note Chief Complaint 1yr HPI Staff 1yr DX: Mixed Incontinence, Nocturia & Microscopic Hematuria *No Urology Meds Pt returned from [facility] last month. Since then has gone to [facility] x2 occasions due to Kidney Stones [...] hematuria (R31.21: Asymptomatic microscopic hematuria) UA at [facility] on 03/30/23 showed large blood, moderate bacteria, and trace leuks. UA at [facility] on 04/15/23 showed large blood and trace leuks. UA today is negative for blood and infection. Pt denies any visible blood in her urine. -Will continue to monitor. 4. Ureteral stone with hydronephrosis (N13.2: Hydronephrosis with renal and ureteral calculous obstruction) Pt returned from [facility] last month. Since then has gone to [facility] x2 occasions due to COVID and [...] is placed, (more content not included)... [facility] Comment on above: Result Comment: Elec tronically Signed By: Lorne GONZALEZ, Ramila Pascal\.lin\Date and Time Signed: 05/07/23 09:20 EDT\.br\Electronically Co-Signed By: Jessica Barr\.br\Date and Time Co-Signed: 05/07/23 08:54 EDT VC INJ FOAM SCLERO W US MLTI on 12-05-2022 VC INJ FOAM SCLERO W US MLTI Patient: JB ESTRELLA Exam Date: 12/05/2022 : 1950 Gender:F Ordering : DR REINA TAN M.D. Admission #: [id number] Family : Order #: [id number] CLICK HERE TO VIEW EXAM RADIOLOGY REPORT [...] Gil M.D. on 12/05/2022 at 09:41 Normal [facility] VC CONSULT FOLLOWUPon 2022 VC CONSULT FOLLOWUP Patient: JB ESTRELLA Exam Date: 11/28/2022 : 1950 Gender:F Ordering : DR REINA TAN M.D. Admission #: [id number] Family : Order #: [id number] CLICK HERE TO VIEW EXAM RADIOLOGY REPORT [...] Tan MD on 11/28/2022 at 08:38 Normal [facility] VC EXT VENOUS RT LIMITEDon 0 11-28-2022 VC EXT VENOUS RT LIMITED Patient: JB ESTRELLA Exam Date: 11/28/2022 : 1950 Gender:F Ordering : DR REINA TAN M.D. Admission #: [id number] Family : Order #: [id number] CLICK HERE TO VIEW EXAM RADIOLOGY REPORT [...] MD on 11/28/2022 at 08:16 Approved by: Reina Tan MD on 11/28/2022 at 08:17 [facility] VC INJ FOAM SCLERO W US MLTI on 11-25-2022 VC INJ FOAM SCLERO W US MLTI Patient: JB ESTRELLA Exam Date: 11/25/2022 : 1950 Gender:F Ordering : DR REINA TAN M.D. Admission #: [id number] Family : Order #: [id number] CLICK HERE TO VIEW EXAM RADIOLOGY REPORT [...] Gil M.D. on 11/25/2022 at 12:03 [facility] VC CONSULT FOLLOWUPon 2022 VC CONSULT FOLLOWUP Patient: JB ESTRELLA Exam Date: 11/13/2022 : 1950 Gender:F Ordering : DR REINA TAN M.D. Admission #: [id number] Family : Order #: [id number] CLICK HERE TO VIEW EXAM RADIOLOGY REPORT [...] consultation Dictated by: Aashish Gil M.D. on 11/13/2022 at 09:52 Approved by: Aashish Gil M.D. on 11/13/2022 at 09:54 [facility] VC EXT VENOUS LT LIMITEDon 0 11-13-2022 VC EXT VENOUS LT LIMITED Patient: JB ESTRELLA Exam Date: 11/13/2022 : 1950 Gender:F Ordering : DR REINA TAN M.D. Admission #: [id number] Family : Order #: [id number] CLICK HERE TO VIEW EXAM RADIOLOGY REPORT [...] Gil M.D. on 11/13/2022 at 09:52 [facility] VC ENDOVENOUS ABL 1ST V LTon 11-06-2022 VC ENDOVENOUS ABL 1ST V LT Patient: JB ESTRELLA Exam Date: 11/06/2022 : 1950 Gender:F Ordering : DR REINA TAN M.D. Admission #: [id number] Family : Order #: [id number] CLICK HERE TO VIEW EXAM RADIOLOGY REPORT [...] Gil M.D. on 11/06/2022 at 14:02 [facility] VC CONSULT FOLLOWUPon 2022 VC CONSULT FOLLOWUP Patient: JB ESTRELLA Exam Date: 10/23/2022 : 1950 Gender:F Ordering : DR REINA TAN M.D. Admission #: [id number] Family : Order #: [id number] CLICK HERE TO VIEW EXAM RADIOLOGY REPORT [...] Tan MD on 10/23/2022 at 13:32 [facility] VC EXT VENOUS RT LIMITEDon 0 10-23-2022 VC EXT VENOUS RT LIMITED Patient: JB ESTRELLA Exam Date: 10/23/2022 : 1950 Gender:F Ordering : DR REINA TAN M.D. Admission #: [id number] Family : Order #: [id number] CLICK HERE TO VIEW EXAM RADIOLOGY REPORT [...] Tan MD on 10/23/2022 at 10:54 [facility] VC ENDOVENOUS ABL 1ST V RTon 10-18-2022 VC ENDOVENOUS ABL 1ST V RT Patient: JB ESTRELLA Exam Date: 10/18/2022 : 1950 Gender:F Ordering : DR REINA TAN M.D. Admission #: [id number] Family : Order #: [id number] CLICK HERE TO VIEW EXAM RADIOLOGY REPORT [...] MD on 10/18/2022 at 10:20 Normal [facility] CBC AUTO DIFFon 05-28-2022 BASO # 0.0 103/ul Normal 0.0-0.1 [facility] Comment on above: Performed By: #### D ATCBC ####[facility] [address] [place] [address]Dr. Ольга Dacosta Basophils/100 WBC (Bld) 0.7 % Normal 0.2-2.0 [facility] Comment on above: Performed By: #### D ATCBC ####[facility] [address] [place], [place] [address]Dr. Ольга Dacosta EO # 0.3 103/ul Normal 0.0-0.7 [facility] Comment on above: Performed By: #### D ATCBC ####[facility] [address] [place], [place] [address]Dr. Ольга Dacosta Eosinophils/100 WBC (Bld) 6.1 % Normal 0.9-7.0 [facility] Comment on above: Performed By: #### D ATCBC ####[facility] [address] [place], [place] [address]Dr. Ольга Dacosta Erythrocyte distribution width (RBC) [Ratio] 16.3 % Critically high 11.0-15.0 [facility] Comment on above: Performed By: #### D ATCBC ####[facility] [address] [place], [place] [address]Dr. Ольга Dacosta Hematocrit (Bld) [Volume fraction] 39.5 % Normal 36.0-48.0 [facility] Comment on above: Performed By: #### D ATCBC ####[facility] [address] [place], [place] [address]Dr. Ольга Dacosta Hemoglobin (Bld) [Mass/Vol] 12.2 g/dL Normal 12.0-16.0 [facility] Comment on above: Performed By: #### D ATCBC ####[facility] [address] [place], [place] [address]Dr. Ольга Dacosta IG # 0.01 10e3/ul Normal 0.00-0.03 [facility] Comment on above: Performed By: #### D ATCBC ####[facility] [address] [place] [address]Dr. Nerissakathy Dacosta IG % 0.2 % Normal 0.0-0.5 [facility] Comment on above: Performed By: #### D ATCBC ####[facility] [address] [address]Dr. Ольга Dacosta LYMPH # 1.9 103/ul Normal 1.2-3.8 [facility] Comment on above: Performed By: #### D ATCBC ####[facility] [address] [place], [place] [address]Dr. Ольга Dacosta Lymphocytes/100 WBC (Bld) 34.8 % Normal 20.5-60.0 [facility] Comment on above: Performed By: #### D ATCBC ####[facility] [address] [place], [place] [address]Dr. Nerissakathy Dacosta MCH (RBC) [Entitic mass] 20.4 pg Critically low 26.7-34.0 [facility] Comment on above: Performed By: #### D ATCBC ####[facility] [address] [place], [place] [address]Dr. Ольга Praneeth MCHC (RBC) [Mass/Vol] 30.9 g/dL Normal 29.9-35.2 [facility] Comment on above: Performed By: #### D ATCBC ####[facility] [address] [place], [place] [address]Dr. Ольга Praneeth MCV (RBC) [Entitic vol] 66.2 fL Critically low 81.0-99.0 [facility] Comment on above: Performed By: #### D ATCBC ####[facility] [address] [place], [place] [address]Dr. Ольга Dacosta MONO # 0.5 103/ul Normal 0.3-0.8 [facility] Comment on above: Performed By: #### D ATCBC ####[facility] [address] [place], [place] [address]Dr. Ольга Dacosta Monocytes/100 WBC (Bld) 9.2 % Normal 1.7-12.0 [facility] Comment on above: Performed By: #### D ATCBC ####[facility] [address] [place] [id number]. Ольга Dacosta NEUT # 2.7 103/ul Normal 1.4-6.5 [facility] Comment on above: Performed By: #### D ATCBC ####[facility] [address] [address]Dr. Ольга Dacosta Neutrophils/100 WBC (Bld) 49.0 % Normal 43.0-75.0 [facility] Comment on above: Performed By: #### D ATCBC ####[facility] [address] [id number]. Ольга Dacosta Platelet mean volume (Bld) [Entitic vol] 11.4 fL Normal 9.5-13.5 [facility] Comment on above: Performed By: #### D ATCBC ####[facility] [address] [id number]. Ольга Dacosta PLT 243 103/ul Normal 150-450 [facility] Comment on above: Performed By: #### D ATCBC ####[facility] [address] [place], [place] [address]Dr. Ольга Dacosta RBC 5.97 106/ul Critically high 4.20-5.40 The [facility] Comment on above: Performed By: #### D ATCBC ####[facility] [address] [place] [id number]. Ольга Dacosta WBC 5.5 103/ul Normal 4.0-11.0 [facility] Comment on above: Performed By: #### D ATCBC ####[facility] [address] [place] [id number]. Ольга Dacosta JERMAN - TSHon 05-28-2022 TSH 1.495 uIU/mL Normal 0.358-3.740 The [facility] Comment on above: Performed By: #### D ATTSH, DATBMP ####[facility] [address] [place] [address]Dr. Ольга Dacosta TSH RANGE SEE BELOW Normal [facility] Comment on above: Result Comment: <0.3 4 UIU/ml HYPERTHYROID 0.34-5.60 UIU/ml EUTHYROID >5.60 UIU/ml HYPOTHYROID Performed By: #### Elke BALDERRAMA DATBMP ####[facility] [address] [place], [place] [address]Dr. Ольга Dacosta JERMAN- BMP WITH LIPIDon 2021 Anion gap [Moles/Vol] 10.3 mmol/L Normal [facility] Comment on above: Performed By: #### Elke BALDERRAMA DATBMP ####[facility] [address] [place], [place] [address]Dr. Ольга Dacosta Calcium [Mass/Vol] 9.1 mg/dL Normal 8.5-10.1 [facility] Comment on above: Performed By: #### Elke BALDERRAMA DATBMP ####[facility] [address] [place], [place] [address]Dr. Ольга Dacosta Chloride [Moles/Vol] 104 mmol/L Normal 98-107 [facility] Comment on above: Performed By: #### JERMAN VORABMP ####[facility] [address] [place], [place] [address]Dr. Ольга Dacosta Cholesterol [Mass/Vol] 162 mg/dL Normal <=200 [facility] Comment on above: Performed By: #### Elke BALDERRAMA DATBMP ####[facility] [address] [place], [place] [address]Dr. Ольга Dacosta Cholesterol in HDL [Mass/Vol] 59 mg/dL Normal 40-60 [facility] Comment on above: Performed By: #### Elke BALDERRAMA DATBMP ####[facility] [address] [place], [place] [address]Dr. Ольга Dacosta Cholesterol in LDL [Mass/Vol] 88.0 mg/dL Normal [facility] Comment on above: Performed By: #### Elke BALDERRAMA DATBMP ####[facility] [address] [place], [place] [address]Dr. Ольга Dacosta CO2 [Moles/Vol] 29.1 mmol/L Normal 21.0-32.0 The [facility] Comment on above: Performed By: #### Elke BALDERRAMA DATBMP ####[facility] [address] [place] [id number]. Ольга Dacosta Creatinine [Mass/Vol] 0.59 mg/dL Normal 0.55-1.02 [facility] Comment on above: Performed By: #### Elke BALDERRAMA DATBMP ####[facility] [address] [place] [id number]. Ольга Praneeth EGFR-AF ICELANDIC >60 Normal >=60 [facility] Comment on above: Performed By: #### Elke BALDERRAMA DATBMP ####[facility] [address] [place] [address]Dr. Ольга Praneeth EGFR-NON AF ICELANDIC >60 Normal >=60 [facility] Comment on above: Performed By: #### Elke BALDERRAMA DATBMP ####[facility] [address] [place] [id number]. Ольга Praneeth Glucose [Mass/Vol] 100 mg/dL Normal 74-106 [facility] Comment on above: Performed By: #### Elke BALDERRAMA DATBMP ####[facility] [address] [place] [id number]. Nerissakathy Dacosta HDL NORMAL > or = 60 mg/dl - LOW CARDIOVASCULAR RISK <40 mg/dl - HIGH CARDIOVASCULAR RISK Normal [facility] Comment on above: Performed By: #### Elke BALDERRAMA DATBMP ####[facility] [address] [place] [id number]. Ольга Dacosta LDL CALC NORMAL SEE BELOW Normal [facility] Comment on above: Result Comment: <100 mg/dl OPTIMAL 100 - 129 mg/dl NEAR OR ABOVE OPTIMAL 130 - 159 mg/dl BORDERLINE HIGH 160 - 189 mg/dl HIGH >190 mg/dl VERY HIGH Performed By: #### Elke BALDERRAMA DATBMP ####[facility] [address] [place] [address]Dr. Nerissakathy Dacosta Potassium [Moles/Vol] 4.4 mmol/L Normal 3.5-5.1 [facility] Comment on above: Performed By: #### Elke BALDERRAMA DATBMP ####[facility] [address] [place] [address]Dr. Ольга Praneeth Sodium [Moles/Vol] 139 mmol/L Normal 136-145 [facility] Comment on above: Performed By: #### Elke BALDERRAMA DATBMP ####[facility] [address] [place] [address]Dr. Nerissakathy Dacosta Triglyceride [Mass/Vol] 75 mg/dL Normal <=150 [facility] Comment on above: Performed By: #### JERMAN VORABMP ####[facility] [address] [place] [address]Dr. Ольга Dacosta Urea nitrogen [Mass/Vol] 25.0 mg/dL Critically high 7.0-18.0 [facility] Comment on above: Performed By: #### FAUSTINO VORAP ####[facility] [address] [place], [place] [address]Dr. Nerissakathy Dacosta Urea nitrogen/Creatinine [Mass ratio] 42.4 mg/mg Normal [facility] Comment on above: Performed By: #### FAUSTINO VORAP ####[facility] [address] [place] [address]Dr. Nerissakathy Dacosta VLDL CALC 15.0 mg/dL Normal [facility] Comment on above: Performed By: #### JERMAN VORABMP ####[facility] [address] [place], [place] [address]Dr. Ольга Dacosta VC COMP CONSULTATIONon 02-28 VC COMP CONSULTATION Patient: JB ESTRELLA Exam Date: 02/28/2022 : 1950 Gender:F Ordering : DR REINA TAN M.D. Admission #: [id number] Family : Order #: [id number] CLICK HERE TO VIEW EXAM RADIOLOGY REPORT [...] arterial disease 5. CEAP: C3, EC, AP, ND PLAN: 1. Continued use of compression stockings [...] Gil M.D. on 02/28/2022 at 13:38 Normal [facility] VC VENOUS REFLUX TITA LMTon 0 02-28-2022 VC VENOUS REFLUX TITA LMT Patient: JB ESTRELLA Exam Date: 02/28/2022 : 1950 Gender:F Ordering : DR REINA TAN M.D. 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 Mid/med [...] Gil M.D. on 02/28/2022 at 09:48 Normal [facility] MAMM SCREEN 3D TITA CADon 01-21-2022 MG MAMM SCREEN 3D TITA CAD Patient: JB ESTRELLA Exam Date: 01/21/2022 : 1950 Gender:F Ordering : DR ALDEN JAMISON D.O. Admission #: [id number] Family : Order #: [id number] CLICK HERE TO VIEW EXAM RADIOLOGY REPORT [...] lung cancer at age 61. LOCATION: [facility] BREAST COMPOSITION: Scattered areas fibroglandular density. FINDINGS: [...] MD on 01/21/2022 at 14:35 Normal [facility] URINALYSISOrdered By: Danielle de la rosa on 12-12-2021 Bacteria LM [...] [#/Area] 0-2 /HPF Normal 0-2/HPF [facility] UA Aut o SS Glucose Test strip (U) [Mass/Vol] Negative (12/12/21 11:49 AM) Normal Negative [facility] UA Auto SS Hemoglobin Ql (U) 3+ *ABN* (12/12/21 11:49 AM) Invalid Interpretation Code Negative [facility] UA Auto SS Ketones (U) [Mass/Vol] Trace *ABN* (12/12/21 11:49 AM) Invalid Interpretation Code Negative [facility] UA Auto SS [place].plasma/[place] .RBC (Bld) [Mass ratio] 4-20 /HPF Normal 0-3/HPF [facility] UA Auto SS Nitrite Ql (U) Negative (12/12/21 11:49 AM) Normal Negative [facility] UA Auto SS pH (U) 5.5 *NA* (12/12/21 11:49 AM) Invalid Interpretation Code 5.0 - 9.0 [facility] UA Auto SS Protein (U) [Mass/Vol] Negative (12/12/21 11:49 AM) Normal Negative [facility] UA Auto SS Specific gravity (U) [Rel density] >=1.030 *NA* (12/12/21 11:49 AM) Invalid Interpretation Code 1.005 - 1.030 [facility] UA Auto SS UA Spec Desc Clean Catch (12/12/21 11:49 AM) Normal [facility] UA Auto SS Urobilinogen Qn (U) 0.3869613 {[place]'U}/dL Normal 0.0 - 1.0 EU/dL [facility] UA Auto SS WBC Auto Ql (U) Negative (12/12/21 11:49 AM) Normal Negative [facility] UA Auto SS WBC LM.HPF (Urine sed) [#/Area] 0-5 /HPF Normal 0-5/HPF [facility] UA Auto SS Vital Signs Date Time Vital Sign Value Performing Clinician Facility 05-07-2023 08:03-0400 Blood Pressure Location Ramila Pradhan [facility] 05-07-2023 08:03-0400 Diastolic blood pressure 73 mm[Hg] Ramila Lue [facility] 05-07-2023 08:03-0400 Heart rate 70 /min Ramila Lue [facility] 05-07-2023 08:03-0400 Respiratory rate 16 /min Ramila Lue [facility] 05-07-2023 08:03-0400 Systolic blood pressure 127 mm[Hg] Ramila Lue [facility] 04-22-2023 08:45-0400 Body height 162.56 cm Alden Ball Other [facility] Other 04-22-2023 08:45-0400 Body mass index (BMI) [Ratio] 36.8 kg/m2 Alden Ball Other [facility] Other 04-22-2023 08:45-0400 Body weight 97.25 kg Alden Ball Other [facility] Other 04-22-2023 08:45-0400 Diastolic blood pressure 83 mm[Hg] Alden Ball Other [facility] Other 04-22-2023 08:45-0400 Respiratory rate 12 /min Alden Ball Other [facility] Other 04-22-2023 08:45-0400 Systolic blood pressure 135 mm[Hg] Alden Ball Other [facility] Other 12-30-2022 08:45-0400 Body height 162.56 cm Alden Ball Other [facility] Other 12-30-2022 08:45-0400 Body mass index (BMI) [Ratio] 37.35 kg/m2 Alden Ball Other [facility] Other 12-30-2022 08:45-0400 Body weight 98.7 kg Alden Ball Other [facility] Other 12-30-2022 08:45-0400 Diastolic blood pressure 74 mm[Hg] Alden Ball Other [facility] Other 12-30-2022 08:45-0400 Respiratory rate 12 /min Alden Ball Other [facility] Other 12-30-2022 08:45-0400 Systolic blood pressure 121 mm[Hg] Alden Ball Other [facility] Other 11-01-2022 10:30-0400 Body height 162.56 cm Alden Ball Other [facility] Other 11-01-2022 10:30-0400 Body mass index (BMI) [Ratio] 37.72 kg/m2 Alden Ball Other [facility] Other 11-01-2022 10:30-0400 Body weight 99.7 kg Alden Ball Other [facility] Other 11-01-2022 10:30-0400 Diastolic blood pressure 72 mm[Hg] Alden Ball Other [facility] Other 11-01-2022 10:30-0400 Respiratory rate 12 /min Alden Ball Other [facility] Other 11-01-2022 10:30-0400 Systolic blood pressure 122 mm[Hg] Alden Ball Other [facility] Other 05-01-2022 08:17-0400 Blood Pressure Location Ramila Lue [facility] 05-01-2022 08:17-0400 Diastolic blood pressure 80 mm[Hg] Ramila Lue [facility] 05-01-2022 08:17-0400 Heart rate 74 /min Ramila Lue [facility] 05-01-2022 08:17-0400 Systolic blood pressure 132 mm[Hg] Ramila Lue [facility] 12-12-2021 11:07-0400 Blood Pressure Location Ramila Lue [facility] 12-12-2021 11:07-0400 Diastolic blood pressure 83 mm[Hg] Ramila Lue [facility] 12-12-2021 11:07-0400 Heart rate 69 /min Ramila Lue [facility] 12-12-2021 11:07-0400 Respiratory rate 16 /min Ramila Lue [facility] 12-12-2021 11:07-0400 Systolic blood pressure 135 mm[Hg] Ramila Lue [facility] Encounters Encounter Date Encounter Type Care Provider Facility Start: 05-12-2024 ambulatory Ramila Chaparroe Facility:[facility] Start: 06-25-2023 End: 06-25-2023 ambulatory DEANA LOMAS Not Available Start: 06-10-2023 End: 06-10-2023 ambulatory Alden Jamison Other [facility] Other Start: 06-10-2023 Telephone encounter Alden Jamison [facility] Start: 06-09-2023 End: 06-09-2023 ambulatory GAIL NAVA Not Available Start: 05-07-2023 End: 05-08-2023 ambulatory Ramila Chaparroe Facility:[facility] Start: 05-07-2023 End: 05-07-2023 Patient encounter procedure Ramila MRafia Pradhan [facility] Start: 04-22-2023 End: 04-22-2023 ambulatory Alden Shaheen Other [facility] Other Start: 04-22-2023 Office outpatient vi sit 15 minutes Alden Jamison [facility] Start: 02-03-2023 End: 02-03-2023 ambulatory Alden Jamison Other [facility] Other Start: 02-03-2023 Telephone encounter Alden Jamison [facility] Start: 01-24-2023 End: 01-24-2023 ambulatory Alden Jamison Other [facility] Other Start: 01-24-2023 Telephone encounter Alden Jamison [facility] Start: 01-08-2023 End: 01-08-2023 ambulatory Alden Jamison Other [facility] Other Start: 01-08-2023 Telephone encounter Alden Jamison [facility] Start: 12-30-2022 End: 12-30-2022 ambulatory Alden Shaheen Other [facility] Other Start: 12-30-2022 Office outpatient vi sit 15 minutes Alden Jamison [facility] Start: 12-12-[address] ALDEN JAMISON Facili ty:[facility] Start: 12-05-2022 End: 12-06-[address] REINA TAN Facility:[facility] Start: 11-28-2022 End: 11-29-[address] REINA TAN Facility:[facility] Start: 11-25-2022 End: 11-26-[address] REINA TAN Facility:[facility] Start: 11-13-2022 End: 11-14-[address] REINA TAN Facility:[facility] Start: 11-06-2022 End: 11-07-[address] REINA TAN Facility:[facility] Start: 11-04-2022 End: 11-04-2022 ambulatory Alden Jamison Other [facility] Other Start: 11-04-2022 Telephone encounter Alden Jamison [facility] Start: 11-01-2022 End: 11-01-2022 ambulatory Alden Jamison Other [facility] Other Start: 11-01-2022 Office outpatient vi sit 15 minutes Alden Shaheen [facility] Start: 10-23-2022 End: 10-24-[address] REINA TAN Facility:[facility] Start: 10-18-2022 End: 10-19-[address] REINA TAN Facility:[facility] Start: 05-28-2022 End: 05-29-[address] DOCTOR JUAN Facility:[facility] Start: 05-27-2022 End: 05-28-[address] DOCTOR JUAN Facility:[facility] Start: 05-01-2022 End: 05-01-2022 Patient encounter procedure Ramila Pradhan [facility] Start: 02-28-2022 End: 03-01-[address] REINA TAN Facility:[facility] Start: 01-22-2022 End: 01-22-2022 Patient encounter procedure Ed Kramer Jr. [facility] Start: 01-21-2022 End: 01-22-[address] ALDEN JAMISON Facility:[facility] Start: 12-12-2021 End: 12-12-2021 Lab Drop off Ramila Pradhan [facility] Start: 12-12-2021 End: 12-12-2021 Patient encounter procedure Ramila Pradhan [facility] Procedures Date Procedure Procedure Detail Performing Clinician Start: 2020 Cataract extraction and insertion of intraocular lens Ramila Pradhan Start: 03-21-2020 Cataract extraction and insertion of intraocular lens Ramila Lue Cholecystectomy Ramila Lue Procedure on knee Ramila Lue Immunizations Immunization Date Immunization Notes Care Provider Sulaiman hebert 04-22-2023 influenza, high dose seasonal, preservative-free Alden Jamison Other [facility] Other 12-30-2022 zoster vaccine recombinant Alden Jamison Other [facility] 05-27-2022 influenza virus vaccine, split virus (incl. purified surface antigen) Alden Jamison Other [facility] Other 06-30-2021 SARS-CoV-2 (COVID-19 ) Ad26 vaccine, recombinant Ramila Pradhan [facility] Comment on above: Result Comment: 2021: [id number] 05-25-2021 influenza virus vaccine, split virus (incl. purified surface antigen) Alden Jamison Other [facility] Other 05-25-2021 influenza virus vaccine, unspecified formulation Ramlia Pradhan [facility] 09-29-2020 COVID-19 vaccine, vector-nr, rS-Ad26, PF, 0.5 mL; Translations: [Susana COVID-19 Vaccine] Ramila Chaparroe [facility] Comment on above: Reason for Medicatio n: Prophylaxis 05-08-2020 influenza virus vaccine, split virus (incl. purified surface antigen) Alden Jamison Other [facility] Other 05-08-2020 influenza virus vaccine, unspecified formulation Ramila Lue [facility] 05-18-2019 influenza virus vaccine, split virus (incl. purified surface antigen) Alden Jamison Other [facility] Other 05-06-2018 influenza virus vaccine, split virus (incl. purified surface antigen) Alden Jamison Other [facility] Other 05-06-2018 influenza virus vaccine, unspecified formulation Ramila Lue [facility] 04-24-2017 influenza virus vaccine, split virus (incl. purified surface antigen) Alden Jamison Other [facility] Other 04-24-2017 influenza virus vaccine, unspecified formulation Ramila Lue [facility] 04-01-2017 influenza virus vaccine, unspecified formulation Ramila Lue [facility] 05-28-2016 pneumococcal polysaccharide vaccine, 23 valent Ramila Lue [facility] 04-22-2016 influenza virus vaccine, split virus (incl. purified surface antigen) Alden Jamison Other [facility] Other 04-22-2016 influenza virus vaccine, unspecified formulation Ramila Lue [facility] 04-22-2016 pneumococcal conjuga te vaccine, 13 valent Ramila Lue [facility] 04-28-2015 influenza virus vaccine, split virus (incl. purified surface antigen) Alden Jamison Other [facility] Other 04-19-2015 pneumococcal conjuga te vaccine, 13 valent Alden Jamison Other [facility] Other Payers Date Payer Category Payer Unknown [id number] 2.16.8 [id number] 1960 Medicare [id number] 2.1 [id number] 1960 Self-pay [id number] 1959 Unknown [id number] 1949 Unknown [id number] 2.16.84 [id number] 1949 Unknown [id number] 2.16.84 0.1.638018.3.579.2.593 1949 Unknown [id number] 2.16.84 0.1.491268.3.579.2.593 1949 Unknown [id number] 2.16.84 0.1.627535.3.579.2.593 1949 Unknown [id number] 2.16.84 0.1.637897.3.579.2.593 1949 Unknown [id number] 2.16.84 0.1.647684.3.579.2.593 1949 Unknown [id number] 2.16.84 0.1.768521.3.579.2.593 1949 Unknown [id number] 2.16.84 0.1.099152.3.579.2.593 1949 Unknown [id number] 2.16.84 0.1.073250.3.579.2.593 1949 Unknown [id number] 2.16.84 0.1.525611.3.579.2.593 1949 Unknown [id number] 2.16.8 40.1.798448.3.579.2.727 1949 Unknown [id number] 2.16.8 40.1.854094.3.579.2.727 1949 Unknown [id number] 2.16.840 .1.130835.3.579.2.1259 1949 Unknown [id number] 2.16.840. [id number] Unknown [id number] 2.16.84 0.1.341088.3.579.2.593 Unknown [id number] 2.16.84 0.1.174559.3.579.2.593 Social History Date Type Detail Facility Start: 12-12-2021 End: 05-07-2023 Tobacco smoking status Ex-smoker (finding) [facility] Sex Assigned At Female [facility] Tobacco smoking status Never [facility] Medical Equipment Procedure Code Equipment Code Equipment Origin al Text Equipment Identifier Dates [id number] FDA Start: 03-21-2020 [id number] FDA Start: 2020 Functional Status Date Assessment Result Facility 05-07-2023 Functional Status N/A [facility] 05-01-2022 Functional Status N/A [facility] Clinical Notes 12-12-2021 to 05-07-2023 Note [...] include: ?8 oz (237 mL) of milk, outudiv-nmiijhdpwled-xfitw milk, and calcium-fortifiedfruit juice. Calcium-fortified means that [...] ?Spinach (cooked), rhubarb, beets, sweet potatoes, and English chard. ?Peanuts. ?Potato chips, serbian fries, and baked potatoes with skin on. ?Nuts and nut products. ?Chocolate. If you regularly take a diuretic medicine, make sure to eat at least 1 or 2 servings of fruits or vegetables that are high in potassium each day. These include: ?Avocado. ?Banana. ?[place], prune, carrot, or tomato juice. ?Baked potato. [...] magnesium, fish oil, or vitamin B6. Take mfjm-mvf-gxuoeno and prescription medicines only as told by [...] Casseroles. Pizza. Lasagna. Frozen meals. Potato chips. Samoan fries. The items listed above may not [...] provider. Document Revised: 03/25/2022 Document Reviewed: 03/25/2022 [employer] Patient Education 2022 [employer]. Follow Up Care 05/01/2022 08:32:42 With:Lorne GONZALEZ, Ramila Pascal, URL, URO Address: When: Unknown Comments:Gerald Barragan Ureteroscopy/LaserLitho [facility] 04-22-2023 Evaluation note Encounter Date Diagnosis Assessment Notes Mar, Acute left-sided low back pain without sciatica (ICD-10 - M54.50) Push fluids ER or call office w/ recurrent flank pain or hematuria Mar, Gross hematuria (ICD-10 - R31.0) Push fluids CT abd/pelvis to r/o renal tumor, renal stone, hydronephrosis f/u for hematuria evaluation [facility] Other 06-05-2023 Evaluation note* Encounter Date Diagnosis Assessment Notes Treatment Notes Treatment Clinical Notes Dec, Cervical spondylosis (ICD-10 - M47.812) ROM exercises, ice/heat and rest. Begin NSAIDs and muscles relaxant at night. PT if no improvement. XR Dec, Torticollis (ICD-10 - M43.6) Heat/ice and NSAIDs/muscle relaxant. PT if no improvement Dec, Dry mouth (ICD-10 - R68.2) Push water, lozenges [facility] Other 04-07-2023 Evaluation note* Encounter Date Diagnosis [...] Tylenol and Motrin. ROM exercises, Voltaren Gel [facility] Other 10-05-2022 Hospital Discharge instructions Patient Education [...] 06/30/2013 Document Revised: 03/03/2019 Document Reviewed: 03/03/2019 [employer] Patient Education 2020 [employer] 05/01/2022 08:20:59 Calorie Counting for Weight [...] 07/14/2006 Document Revised: 04/02/2019 Document Reviewed: 06/13/2017 [employer] Patient Education 2020 [employer]. Follow Up Care 12/12/2021 12:13:24 With:Lorne GONZALEZ, Ramila M., URL, URO Address: When:Within 1 Year(s) [facility] 05-18-2022 Hospital Discharge instructions Patient Education [...] Follow these instructions at home: Medicines Take ltkf-vya-gsluxvb and prescription medicines only as told by [...] or the blood stops without treatment. Take zemw-ool-xxeyoji and prescription medicines only as told by your health care provider. Drink enough fluid to keep your urine clear or pale yellow. This information is not intended to replace advice given to you by your health care provider. Make sure you discuss any questions you have with your health care provider. Document Released: 07/14/2006 Document Revised: 12/08/2019 Document Reviewed: 08/16/2017 [employer] Patient Education 2020 [employer]. Follow Up Care 06/06/2021 10:30:38 With:Ramila Pradhan MD, URL, URO Address: When:3 months [facility] evaluation + Plan note Future Appointments Appointment Date:12/21/2021 07:30:00 AM Scheduled Provider[facility] Type:PT Pelvic Floor/UI Eval () Appointment Date:05/01/2022 08:00:00 AM Scheduled Provider:Ramila Pradhan MD Location:[facility] Appointment Type:URO Office Visit [facility] evaluation + Plan note Future Appointments Appointment Date:12/21/2021 07:30:00 AM Scheduled Provider: Location[facility] [place] Appointment Type:PT Pelvic Floor/UI Eval (FT) Appointment Date:05/01/2022 08:00:00 AM Scheduled Provider:Ramila Pradhan MD Location:[facility] Appointment Type:URO Office Visit Diagnostic Tests Pending * [facility] Future Appointments Appointment Date:02/06/2022 [...] Date:05/01/2022 08:00:00 AM Scheduled Provider:Ramila Pradhan MD Location:[facility] Appointment Type:URO Office Visit [facility] evaluation + Plan note Future Appointments Appointment Date:05/07/2023 08:00:00 AM Scheduled Provider:Ramila Pradhan MD Location:[facility] Appointment Type:URO Office Visit [facility] evalxihmyr noteNo [facility] Other History general Narrative - Reported* Type [...] History WRIST SURGERY Surgical History C- SECTION 1969,1974 Surgical History ANKLE SURGERY Surgical History CHOLECYSTECTOMY 2013 Surgical History COLONOSCOPY Hospitalization History SEE SURGICAL HX [facility] Other Hospital course Narrative No data available for this section [facility] Hospital Discharge instructions No data available for this section [facility] No data available for this section [facility] Summary Purpose Family History No Family History Records Found No data available for this section No Family History Records FoundNo Family History Records Found Advance Directives No Advanced Directives Records FoundNo Advanced Directives Records FoundNo Advanced Directives Records Found Additional Source Comments Care Team (unrecognized sect ion and content) Personnel Name: ALDEN JAMISON DO Address: [address] [place] [address] Personnel Name: ALDEN JAMISON DO Address: Address: [address] [place] [address] Personnel Name: SHAHEEN BORGES ALDEN Address: Address: [address] [place] [address] REASON FOR VISIT (unrecogniz ed section and content) FELL HURT SHOULDER AND NECKU pdateNeck PainXray resultsMammogram resultsmedication questionTBHLab results INFORMATION SOURCE (unrecogn ized section and content) DATE CREATED AUTHOR 12/12/2022 [facility] DATE CREATED AUTHOR AUTHOR'S ORGANIZ ATION 05/13/2023 [facility] DATE CREATED AUTHOR AUTHOR'S ORGANIZ ATION 06/27/2023 [facility] EPIC FOR RECORDS PERTAINING TO PATIENTS [...] BE BASED ON THE PRIMARY CLINICAL RECORDS. [employer] [facility]. provides no warranty or guarantee of the accuracy or completeness of information in this document.
[2023-10-01 09:03] LABS: Percent Iron Saturation 39.7 %
[2023-10-01 10:04] LABS: Basophils Percent Auto 0.5 % (0.2-2.0); Eosinophils Absolute Auto 0.3 10^3/uL (0.0-0.7); Eosinophils Percent Auto 4.6 % (0.9-7.0); Hemoglobin 11.3 g/dL (12.0-16.0); Immature Granulocytes Abs Auto 0.01 10^3/uL (0.00-0.03); Immature Granulocytes Pct Auto 0.2 % (0.0-0.5); Lymphocytes Absolute Auto 1.7 10^3/uL (1.2-3.8); Lymphocytes Percent Auto 27.9 % (20.5-60.0); Mean Corpuscular HGB Conc 29.7 g/dL (29.9-35.2); Mean Corpuscular Hemoglobin 19.9 pg (26.7-34.0); Mean Corpuscular Volume 66.9 fL (81.0-99.0); Monocytes Absolute Auto 0.5 10^3/uL (0.3-0.8); Monocytes Percent Auto 7.9 % (1.7-12.0); Neutrophils Absolute Auto 3.6 10^3/uL (1.4-6.5); Neutrophils Percent Auto 58.9 % (43.0-75.0); Platelet Count 232 10^3/uL (150-450); Red Blood Count 5.68 10^6/uL (4.20-5.40); Red Cell Distribution Width 16.2 % (11.0-15.0); White Blood Count 6.1 10^3/uL (4.0-11.0)
== END 2023-10-01 07:47 | disposition home or self-care (01) ==
LOC: LAB 07:49
PROVIDERS: PCP Internal Medicine; Visit Provider Internal Medicine
DX: D64.9 Anemia, unspecified (principal)
CPT/HCPCS: 36415; 82607; 82728; 82746; 83540; 83550; 85025

== ENCOUNTER 2023-12-23 14:30 | Outpatient (OUT) | payer MEDICARE, OTHER, SELFPAY | END 2023-12-23 14:31 | disposition home or self-care (01) | LOC: PST 14:30 | PROVIDERS: PCP Internal Medicine; Visit Provider Surgery | DX: Z01.818 Encounter for other preprocedural examination (principal); K26.5 Chronic or unspecified duodenal ulcer with perforation ==

== ENCOUNTER 2023-12-31 06:55 | Day surgery (SDC) | payer MEDICARE, OTHER, SELFPAY ==
--- OUTSIDE RECORDS SUMMARY | 2023-12-31 06:58 | XMS_ITS | CCD ---
Author Organization [facility] Care Team Providers Care Work Station Support Specialist Name Role Phone ALDEN JAMISON Primary Care Physician Alden Jamison DOMINICK, DR REINA Delgado Attending Unavailable WEST, DR REINA Delgado Admitting Unavailable BALL, DR HARO Primary Care Unavailable WEST, DR REINA Delgado Consulting Unavailable ZIEBMARY BETH, DR AASHISH Zaldivar Consulting Unavailable BALL, DR HARO Primary Care Unavailable WEST, DR REINA Delgado Attending Unavailable WEST, DR REINA Delgado Admitting Unavailable WEST, DR REINA Delgado Attending Unavailable WEST, DR REINA Delgado Admitting Unavailable WEST, DR REINA Delgado Consulting Unavailable BALL, DR HARO Primary Care Unavailable ZIEBMARY BETH, DR AASHISH Zaldivar Consulting Unavailable WEST, DR REIAN Delgado Attending Unavailable WEST, DR REINA Delgado Admitting Unavailable WEST, DR REINA Delgado Consulting Unavailable BALL, DR HARO Primary Care Unavailable ZIEBMARY BETH, DR AASHISH Zaldivar Consulting Unavailable WEST, [...] DR HARO Primary Care Unavailable REQUEST, DR CURTIS HAN Consulting Unavaila ble MISC, DR CASEY Admitting [...] ZIEBMARY BETH, DR AASHISH Zaldivar Consulting Unavailable DOMINICK, DR REINA Delgado Attending Unavailable DOMINICK, DR REINA Delgado Admitting Unavailable DOMINICK, DR REINA Delgado Consulting Unavailable SHAHEEN, DR HARO Primary Care Unavailable Ramila Pradhan Attending Unavailable Ramila Pradhan Attending Unavailable RADHA GIBBS Attending Unavailable ALDEN JAMISON Referring Unavailable ALDEN JAMISON Primary Care Unavailable KAITY, ADRIANA Reyes Attending Unavailable ADRIANA BRICENO Referring Unavailable DEANA LOMAS Attending Unavailable KAITY, ADRIANA Reyes Attending Unavailable KAITY, ADRIANA Reyes Attending Unavailable KAITY, ADRIANA Reyes Attending Unavailable GAIL NAVA Attending Unavailable CLAY TORRES Attending Unavailable Allergies Allergy Classification Reported Allergen(s) Allergy Type Date of Onset Reaction(s) Facility (6 sources) Latex; Translations: [latex] Drug allergy 11-13-2015 Eruption of skin (disorder) [facility] Medications Current Medications Medication Drug Class(es) Dates Sig (Normalized) Sig (Original) aspirin 325 mg delayed release oral tablet (13 sources) Platelet Aggregation Inhibitor, Nonsteroidal Anti-inflammatory Drug Start: 11-11-2023 take 325 mg by mouth once daily Aspirin Active 325 MG PO Daily November 11, 2023 12:00am Start: 03-20-2020 take 1 tablet by aamir [...] Orally Once a day Active bacillus coagulans [id number] unt / inulin 250 mg oral capsule [...] Status: Ordered meloxicam 15 mg oral tablet (9 sources) Nonsteroidal Anti-inflammatory Drug Start: 11-11-2023 take 15 mg by mouth once daily Meloxicam Active 15 MG PO Daily November 11, 2023 12:00am Start: 12-30-2022 meloxicam 15 m g Tab Refills(s) 0 Start Date: 05/07/23 Status: Ordered Nature's Bounty Red Krill Oil (4 sources) [...] Status: Ordered tiZANidine 2 mg oral tablet (9 sources) Central alpha-2 Adrenergic Agonist Start: 11-11-2023 take 2 mg by mouth once daily at bedtime Tizanidine Active 2 MG PO Daily at bedtime November 11, 2023 12:00am Start: 12-30-2022 tiZANidine 2 m g Tab Refills(s) 0 Start Date: 05/07/23 Status: Ordered Vitamin D3 (5 sources) Start: 06-06-2021 Vitamin [...] stone] 05-07-2023 Episodic Deficiency and other anemia (7 sources) Anemia; Translations: [Anemia, unspecified] 06-06-2021 Episodic Deficiency and other anemia (8 sources) Microcytic hypochromic anemia; Translations: [Iron deficiency anemia, unspecified] Episodic Diseases of mouth; excluding dental (1 source) Dry mouth, unspecified Episodic Gastrointestinal hemorrhage (12 sources) Rectal hemorrhage; Translations: [Hemorrhage of anus and rectum] Onset: 4 11-11-2023 Episodic Genitourinary symptoms and ill-defined conditions (17 [...] Translations: [Osteopenia of lumbar spine] Episodic Other bone disease and musculoskeletal deformities (2 sources) Osteopenia; Translations: [Other specified disorders of bone density and structure, other site] 11-11-2023 Episodic Other diseases of kidney and ureters (1 source) Urinary tract obstruction; Translations: [Hydronephrosis with renal and ureteral calculous obstruction] Onset: 3 Episodic Other diseases of veins and lymphatics (10 sources) Peripheral venous insufficiency; Translations: [Venous insufficiency (chronic) (peripheral)] 11-11-2023 Episodic Other nutritional; endocrine; and metabolic disorders [...] Spondylosis; intervertebral disc disorders; other back problems (9 sources) Cervical spondylosis; Translations: [Spondylosis without myelopathy or radiculopathy, cervical region] Chronic Spondylosis; intervertebral disc disorders; other back problems (2 sources) Torticollis; Translations: [Cervicalgia] Episodic Sprains and strains (2 sources) Strain of muscle, fascia and tendon at neck level, initial encounter; Translations: [Strain of other muscles, fascia and tendons at shoulder and upper arm level, unspecified arm, initial encounter] Episodic Substance-related disorders (10 sources) Tobacco user; Translations: [Nicotine dependence, cigarettes, in remission] 11-11-2023 Chronic Superficial injury; contusion (2 sources) Contusion of right hand, initial encounter; Translations: [Contusion of left knee, initial encounter] Episodic Unclassified (5 sources) Asymptomatic microscopic hematuria 06-06-2021 Unclassified (1 source) Obstructive hydronephrosis 05-07-2023 Varicose veins of lower extremity (4 sources) Varicose veins of bilateral lower extremities with pain; Translations: [VARICOSE VNS TITA LOW EXTREM W/PAIN] Onset: Episodic Past or Other Problems Problem Classification [...] Test Name Value Interpretation Reference Range Facility Basophils Auto (Bld) [#/Vol] on 10-01-2023 Basophils (Bld) [#/Vol] 0.0 10 3/uL 0.0-0.1 [facility] Basophils/100 WBC Auto (Bld) on 10-01-2023 Basophils/100 WBC (Bld) 0.5 % 0.2-2.0 [facility] Eosinophils/100 WBC Auto (Bl d)on 10-01-2023 Eosinophils/100 WBC (Bld) 4.6 % 0.9-7.0 [facility] Erythrocyte distribution wid th Auto (RBC) [Ratio]on 10-01-2023 Erythrocyte distribution width (RBC) [Ratio] 16.2 % 11.0-15.0 [facility] Hematocrit Auto (Bld) [Volum e fraction]on 10-01-2023 Hematocrit (Bld) [Volume fraction] 38.0 % 36.0-48.0 [facility] Hemoglobin [Mass/volume] in Bloodon 10-01-2023 Hemoglobin (Bld) [Mass/Vol] 11.3 g/dL 12.0-16.0 [facility] Iron binding capacity [Mass/ volume] in Serum or Plasmaon 10-01-2023 Iron binding capacity [Mass/Vol] 257.0 ug/dL 250.0-450.0 [facility] Iron saturation [Mass Fracti on] in Serum or Plasmaon 10-01-2023 Iron saturation [Mass fraction] 39.7 % [facility] Laboratory - Chemistry and C hemistry - challengeon 10-01-2023 Cobalamin (Vitamin B12) [Mass/Vol] 405.0 pg/mL 193.0-986.0 [facility] Ferritin [Mass/Vol] 345.0 ng/mL 8.0-252.0 [facility] Iron [Mass/Vol] 102.0 ug/dL 50.0-170.0 [facility] - Hematology and Cell countson 10-01-2023 Immature granulocytes/100 WBC (Bld) 0.2 % 0.0-0.5 [facility] Leukocytes [#/volume] correc rock for nucleated erythrocytes in Blood by Automated counon 10-01-2023 WBC corrected for nucl RBC Auto (Bld) [#/Vol] 6.1 10 3/uL 4.0-11.0 [facility] Lymphocytes Auto (Bld) [#/Vo l]on 10-01-2023 Lymphocytes (Bld) [#/Vol] 1.7 10 3/uL 1.2-3.8 [facility] Lymphocytes/100 WBC Auto (Bl d)on 10-01-2023 Lymphocytes/100 WBC (Bld) 27.9 % 20.5-60.0 [facility] MCH Auto (RBC) [Entitic mass ]on 10-01-2023 MCH (RBC) [Entitic mass] 19.9 pg 26.7-34.0 [facility] MCHC Auto (RBC) [Mass/Vol]on 10-01-2023 MCHC (RBC) [Mass/Vol] 29.7 g/dL 29.9-35.2 [facility] MCV Auto (RBC) [Entitic vol] on 10-01-2023 MCV (RBC) [Entitic vol] 66.9 fL 81.0-99.0 [facility] Monocytes Auto (Bld) [#/Vol] on 10-01-2023 Monocytes (Bld) [#/Vol] 0.5 10 3/uL 0.3-0.8 [facility] Monocytes/100 WBC Auto (Bld) on 10-01-2023 Monocytes/100 WBC (Bld) 7.9 % 1.7-12.0 [facility] Neutrophils Auto (Bld) [#/Vo l]on 10-01-2023 Neutrophils (Bld) [#/Vol] 3.6 10 3/uL 1.4-6.5 [facility] Neutrophils/100 WBC Auto (Bl d)on 10-01-2023 Neutrophils/100 WBC (Bld) 58.9 % 43.0-75.0 [facility] No Panel Informationon 09-30 Eosinophils # (Auto) 0.3 10 3/uL 0.0-0.7 [facility] Folate 28.20 ng/mL 8.60-58.90 [facility] Immature Granulocyte # (Auto) 0.01 10 3/uL 0.00-0.03 [facility] Platelets Auto (Bld) [#/Vol] on 10-01-2023 Platelets (Bld) [#/Vol] 232 10 3/uL 150-450 [facility] RBC Auto (Bld) [#/Vol]on RBC (Bld) [#/Vol] 5.68 10 6/uL 4.20-5.40 [facility] RAD - CT Reporton 05-12-2023 RAD - CT Report [id number] #1.00TIFF Normal [facility] Reminderson 05-12-2023 Reminders - From: Angela Henriquez To: KATIE - Recalls Lorne; Sent: 05/12/2023 11:22:11 EDT Show up: 03/28/2024 11:22:00 EDT Subject: KUB/JAK Reminder/Recall to be scheduled prior to patients 1 yr follow up 05/12/24 -patient uses [facility] Normal [facility] Ambulatory Visit Summaryon 1 Ambulatory Visit Summary JB ESTRELLA :1950 Visit Date:05/07/2023 Ambulatory Visit Instructions Your Diagnosis Mixed incontinence Nocturia Asymptomatic microscopic hematuria Ureteral stone with hydronephrosis Tests Performed Urnls Dip Stick Auto w/o Microscopy POC 16874 CT Abdomen/Pelvis w/o Contrast -- Results Pending -- Please visit your patient portal for your results or contact your primary care physician. Your Care Team Attending Physician - Ramila Pradhan MD Primary Care Physician - ALDEN JAMISON DO [...] Following Appointments Follow Up with Lorne GONZALEZ, Ramila Pascal, URL, URO When: Comments: Sched Lt Ureteroscopy/LaserLi tho [...] Urnls Dip Stick Auto w/o Microscopy POC 38907 (05/07/2023) Bilirubin Urine Dipstick - Negative Blood Urine Dipstick - Negative Glucose Urine Dipstick - Negative Ketones Urine Dipstick - Negative Leukocytes Urine Dipstick - Negative Nitrite Urine Dipstick - Negative Protein Urine Dipstick - Trace Specific [place] Urine Dipstick - 1.025 Urine Appearance Urine [...] people ne (more content not included)... Normal [facility] ED Note-Physicianon 05-07-20 ED Note-Physician [id number] 9#1.00TIFF [facility] ED Note-Physician [id number] 4#1.00TIFF [facility] Lab Reportson 05-07-2023 Lab Reports [id number] 1#1.00TIFF [facility] Patient Educationon 05-07-20 Patient Education [...] Spinach (cooked), rhubarb, beets, sweet potatoes, and Irish chard. ? Peanuts. ? Potato chips, welsh fries, and baked potatoes with skin on. ? Nuts and nut products. ? Chocolate. ? If you regularly take a diuretic medicine, make sure to eat at least 1 or 2 servings of fruits or vegetables that are high in potassium each day. These include: ? Avocado. ? Banana. ? Anderson, prune, carrot, or tomato juice. ? Baked [...] fish oil, or vitamin B6. ? Take mqdy-xpj-gzcqwfc and prescription medicines only as told by your health care provider. These include supplements. What foods should I limit? Limit your in (more content not included)... Normal [facility] RAD - CT Reporton 10-11-2023 RAD - CT Report [id number] #1.00TIFF Normal [facility] Screenson 05-07-2023 Screens [id number] #1.00TIFF Normal [facility] Urology Office/Clinic Noteon 05-07-2023 Urology Office/Clinic Note Chief Complaint 1yr HPI Staff 1yr DX: Mixed Incontinence, Nocturia & Microscopic Hematuria *No Urology Meds Pt returned from [facility] last month. Since then has gone to [facility] x2 occasions due to Kidney Stones [...] hematuria (R31.21: Asymptomatic microscopic hematuria) UA at [facility] on 03/30/23 showed large blood, moderate bacteria, and trace leuks. UA at [facility] on 04/15/23 showed large blood and trace leuks. UA today is negative for blood and infection. Pt denies any visible blood in her urine. -Will continue to monitor. 4. Ureteral stone with hydronephrosis (N13.2: Hydronephrosis with renal and ureteral calculous obstruction) Pt returned from [facility] last month. Since then has gone to [facility] x2 occasions due to COVID and [...] is placed, (more content not included)... Normal [facility] Comment on above: Result Comment: Elec tronically Signed By: Lorne GONZALEZ, Ramila Pascal\.br\Date and Time Signed: 05/07/23 09:20 EDT\.br\Electronically Co-Signed By: Jessica Barr\.br\Date and Time Co-Signed: 05/07/23 08:54 EDT VC INJ FOAM SCLERO W US MLTI on 12-05-2022 VC INJ FOAM SCLERO W US MLTI Patient: JB ESTRELLA Exam Date: 12/05/2022 : 1950 Gender:F Ordering : DR REINA TAN M.D. Admission #: [id number] Family : Order #: [id number] CLICK HERE TO VIEW EXAM RADIOLOGY REPORT [...] Aashish Gil M.D. on 12/05/2022 at 09:41 [facility] VC CONSULT FOLLOWUPon 2022 VC CONSULT FOLLOWUP Patient: JB ESTRELLA Exam Date: 11/28/2022 : 1950 Gender:F Ordering : DR REINA TAN M.D. Admission #: [id number] Family : Order #: [id number] CLICK HERE TO VIEW EXAM RADIOLOGY REPORT [...] on 11/28/2022 at 08:32 Approved by: Reina aTn MD on 11/28/2022 at 08:38 Normal [facility] VC EXT VENOUS RT LIMITEDon 0 11-28-2022 VC EXT VENOUS RT LIMITED Patient: JB ESTRELLA Exam Date: 11/28/2022 : 1950 Gender:F Ordering : DR REINA TAN M.D. Admission #: [id number] Family : Order #: [id number] CLICK HERE TO VIEW EXAM RADIOLOGY REPORT [...] to thrombus *Exam performed in accordance with [facility] practice guidelines- Peripheral venous ultrasound, October 21, 2009. CONCLUSION: Post ablation occlusion of treated right leg varicose veins. No residual incompetent varicose veins are observed Dictated by: Reina Tan MD on 11/28/2022 at 08:16 Approved by: Reina Tan MD on 11/28/2022 at 08:17 Normal [facility] VC INJ FOAM SCLERO W US MLTI on 05-01-2023 VC INJ FOAM SCLERO W US MLTI Patient: JB ESTRELLA Exam Date: 11/25/2022 : 1950 Gender:F Ordering : DR REINA TAN M.D. Admission #: [id number] Family : Order #: [id number] CLICK HERE TO VIEW EXAM RADIOLOGY REPORT [...] Aashish Gil M.D. on 11/25/2022 at 12:03 [facility] VC CONSULT FOLLOWUPon 2022 VC CONSULT FOLLOWUP Patient: JB ESTRELLA Exam Date: 11/13/2022 : 1950 Gender:F Ordering : DR REINA TAN M.D. Admission #: [id number] Family : Order #: [id number] CLICK HERE TO VIEW EXAM RADIOLOGY REPORT [...] Gil M.D. on 11/13/2022 at 09:54 Normal [facility] VC EXT VENOUS LT LIMITEDon 0 11-13-2022 VC EXT VENOUS LT LIMITED Patient: JB ESTRELLA Exam Date: 11/13/2022 : 1950 Gender:F Ordering : DR REINA TAN M.D. Admission #: [id number] Family : Order #: [id number] CLICK HERE TO VIEW EXAM RADIOLOGY REPORT [...] Gil M.D. on 11/13/2022 at 09:52 Normal [facility] VC ENDOVENOUS ABL 1ST V LTon 11-06-2022 VC ENDOVENOUS ABL 1ST V LT Patient: JB ESTRELLA Exam Date: 11/06/2022 : 1950 Gender:F Ordering : DR REINA TAN M.D. Admission #: [id number] Family : Order #: [id number] CLICK HERE TO VIEW EXAM RADIOLOGY REPORT PROCEDURE: VEIN CENTER ENDOVENOUS ABLATION FIRST VEIN LEFT COMPARISON: VC VENOUS REFLUX TITA LMT, 02/28/2022. INDICATIONS: Pain co-occurrent and due to varicose veins of bilateral legs I83.813 OPERATIVE REPORT: The risks and benefits of the procedure had been previously discussed, and were rediscussed at length. Informed written consent was obtained by me and Efe Hoskins assisted. Time out procedure was performed. The left [...] Aashish Gil M.D. on 11/06/2022 at 14:02 [facility] VC CONSULT FOLLOWUPon 2022 VC CONSULT FOLLOWUP Patient: JB ESTRELLA Exam Date: 10/23/2022 : 1950 Gender:F Ordering : DR REINA TAN M.D. Admission #: [id number] Family : Order #: [id number] CLICK HERE TO VIEW EXAM RADIOLOGY REPORT [...] Tan MD on 10/23/2022 at 13:32 Normal [facility] VC EXT VENOUS RT LIMITEDon 0 10-23-2022 VC EXT VENOUS RT LIMITED Patient: JB ESTRELLA Exam Date: 10/23/2022 : 1950 Gender:F Ordering : DR REINA TAN M.D. Admission #: [id number] Family : Order #: [id number] CLICK HERE TO VIEW EXAM RADIOLOGY REPORT [...] to thrombus *Exam performed in accordance with [facility] practice guidelines- Peripheral venous ultrasound, October 21, 2009. CONCLUSION: Post ablation occlusion of the right great saphenous vein with heat induced thrombus 7.7 mm from the saphenofemoral junction Dictated by: Reina Tan MD on 10/23/2022 at 10:52 Approved by: Reina Tan MD on 10/23/2022 at 10:54 Normal [facility] VC ENDOVENOUS ABL 1ST V RTon 10-18-2022 VC ENDOVENOUS ABL 1ST V RT Patient: JB ESTRELLA Exam Date: 10/18/2022 : 1950 Gender:F Ordering : DR REINA TAN M.D. Admission #: [id number] Family : Order #: [id number] CLICK HERE TO VIEW EXAM RADIOLOGY REPORT PROCEDURE: VEIN CENTER ENDOVENOUS ABLATION FIRST VEIN RIGHT GREAT SAPHENOUS COMPARISON: None. INDICATIONS: Pain co-occurrent and due to varicose veins of bilateral legs I83.813 OPERATIVE REPORT: The risks and benefits of the procedure had been previously discussed, and were rediscussed at length. Informed written consent was obtained by me and Efe Hoskins assisted. Time out procedure was performed. The right [...] MD on 10/18/2022 at 10:20 Normal [facility] CBC AUTO DIFFon 05-28-2022 BASO # 0.0 103/ul Normal 0.0-0.1 [facility] Comment on above: Performed By: #### D ATCBC ####[facility] [address] [place], [place] [address]Dr. Ольга Dacosta Basophils/100 WBC (Bld) 0.7 % Normal 0.2-2.0 [facility] Comment on above: Performed By: #### D ATCBC ####[facility] [address] [place], [place] [address]DrRafia Dacosta EO # 0.3 103/ul Normal 0.0-0.7 [facility] Comment on above: Performed By: #### D ATCBC ####[facility] [address] [place], [place] [address]DrRafia Dacosta Eosinophils/100 WBC (Bld) 6.1 % Normal 0.9-7.0 [facility] Comment on above: Performed By: #### D ATCBC ####[facility] [address] [place] [id number]. Ольга Dacosta Erythrocyte distribution width (RBC) [Ratio] 16.3 % Critically high 11.0-15.0 [facility] Comment on above: Performed By: #### D ATCBC ####[facility] [address] [place], [place] [address]Dr. Ольга Dacosta Hematocrit (Bld) [Volume fraction] 39.5 % Normal 36.0-48.0 [facility] Comment on above: Performed By: #### D ATCBC ####[facility] [address] [place], [place] [address]Dr. Ольга Dacosta Hemoglobin (Bld) [Mass/Vol] 12.2 g/dL Normal 12.0-16.0 [facility] Comment on above: Performed By: #### D ATCBC ####[facility] [address] [place], [place] [address]Dr. Ольга Dacosta IG # 0.01 10e3/ul Normal 0.00-0.03 [facility] Comment on above: Performed By: #### D ATCBC ####[facility] [address] [place], [place] [address]Dr. Ольга Dacosta IG % 0.2 % Normal 0.0-0.5 [facility] Comment on above: Performed By: #### D ATCBC ####[facility] [address] [place], [place] [address]Dr. Ольга Dacosta LYMPH # 1.9 103/ul Normal 1.2-3.8 [facility] Comment on above: Performed By: #### D ATCBC ####[facility] [address] [place], [place] [address]Dr. Ольга Dacosta Lymphocytes/100 WBC (Bld) 34.8 % Normal 20.5-60.0 [facility] Comment on above: Performed By: #### D ATCBC ####[facility] [address] [place] [address]Dr. Ольга Dacosta MCH (RBC) [Entitic mass] 20.4 pg Critically low 26.7-34.0 [facility] Comment on above: Performed By: #### D ATCBC ####[facility] [address] [place], [place] [address]Dr. Ольга Dacosta MCHC (RBC) [Mass/Vol] 30.9 g/dL Normal 29.9-35.2 [facility] Comment on above: Performed By: #### D ATCBC ####[facility] [address] [place], [place] [address]Dr. Ольга Praneeth MCV (RBC) [Entitic vol] 66.2 fL Critically low 81.0-99.0 [facility] Comment on above: Performed By: #### D ATCBC ####[facility] [address] [place], [place] [address]Dr. Ольга Dacosta MONO # 0.5 103/ul Normal 0.3-0.8 [facility] Comment on above: Performed By: #### D ATCBC ####[facility] [address] [place], [place] [address]Dr. Nerissakathy Dacosta Monocytes/100 WBC (Bld) 9.2 % Normal 1.7-12.0 [facility] Comment on above: Performed By: #### D ATCBC ####[facility] [address] [place], [place] [address]Dr. Ольга Dacosta NEUT # 2.7 103/ul Normal 1.4-6.5 [facility] Comment on above: Performed By: #### D ATCBC ####[facility] [address] [place], [place] [address]Dr. Ольга Dacosta Neutrophils/100 WBC (Bld) 49.0 % Normal 43.0-75.0 [facility] Comment on above: Performed By: #### D ATCBC ####[facility] [address] [place], [place] [address]Dr. Ольга Dacosta Platelet mean volume (Bld) [Entitic vol] 11.4 fL Normal 9.5-13.5 [facility] Comment on above: Performed By: #### D ATCBC ####[facility] [address] [place] [id number]. Ольга Dacosta PLT 243 103/ul Normal 150-450 [facility] Comment on above: Performed By: #### D ATCBC ####[facility] [address] [place], [place] [address]Gz. Ольга Dacosta RBC 5.97 106/ul Critically high 4.20-5.40 [facility] Comment on above: Performed By: #### D ATCBC ####[facility] [address] [place] [id number]. Ольга aDcosta WBC 5.5 103/ul Normal 4.0-11.0 [facility] Comment on above: Performed By: #### D ATCBC ####[facility] [address] [place] [id number]. Ольга Dacosta JERMAN - TSHon 05-28-2022 TSH 1.495 uIU/mL Normal 0.358-3.740 [facility] Comment on above: Performed By: #### D ATTERIC DATBMP ####[facility] [address] [place] [id number]. Ольга Dacosta TSH RANGE SEE BELOW Normal [facility] Comment on above: Result Comment: <0.3 4 UIU/ml HYPERTHYROID 0.34-5.60 UIU/ml EUTHYROID >5.60 UIU/ml HYPOTHYROID Performed By: #### D ATTERIC DATBMP ####[facility] [address] [place] [address]Dr. Ольга Dacosta JERMAN- BMP WITH LIPIDon 2021 Anion gap [Moles/Vol] 10.3 mmol/L Normal [facility] Comment on above: Performed By: #### D ATTSH, DATBMP ####[facility] [address] [place] [address]Dr. Ольга Dacosta Calcium [Mass/Vol] 9.1 mg/dL Normal 8.5-10.1 [facility] Comment on above: Performed By: #### D ATTSH, DATBMP ####[facility] [address] [place] [id number]. Ольга Dacosta Chloride [Moles/Vol] 104 mmol/L Normal 98-107 [facility] Comment on above: Performed By: #### D ATTSH, DATBMP ####[facility] [address] [place] [address]Dr. Ольга Dacosta Cholesterol [Mass/Vol] 162 mg/dL Normal <=200 [facility] Comment on above: Performed By: #### D ATTSH, DATBMP ####[facility] [address] [place] [address]Dr. Ольга Dacosta Cholesterol in HDL [Mass/Vol] 59 mg/dL Normal 40-60 [facility] Comment on above: Performed By: #### D ATTSH, DATBMP ####[facility] [address] [place] [address]Dr. Ольга Dacosta Cholesterol in LDL [Mass/Vol] 88.0 mg/dL Normal [facility] Comment on above: Performed By: #### D ATTERIC, DATBMP ####[facility] [address] [place] [id number]. Ольга Dacosta CO2 [Moles/Vol] 29.1 mmol/L Normal 21.0-32.0 [facility] Comment on above: Performed By: #### D ATTSH, DATBMP ####[facility] [address] [place], [place] [id number]. Ольга Dacosta Creatinine [Mass/Vol] 0.59 mg/dL Normal 0.55-1.02 [facility] Comment on above: Performed By: #### D ATTSH, DATBMP ####[facility] [address] [place] [id number]. Ольга Dacosta EGFR-AF JORDANIAN >60 Normal >=60 [facility] Comment on above: Performed By: #### D ATTSH, DATBMP ####[facility] [address] [place] [id number]. Ольга Dacosta EGFR-NON AF JORDANIAN >60 Normal >=60 [facility] Comment on above: Performed By: #### D ATTSH, DATBMP ####[facility] [address] [place] [id number]. Ольга Dacosta Glucose [Mass/Vol] 100 mg/dL Normal 74-106 [facility] Comment on above: Performed By: #### D ATTSH, DATBMP ####[facility] [address] [place] [address]Dr. Ольга Dacosta HDL NORMAL > or = 60 mg/dl - LOW CARDIOVASCULAR RISK <40 mg/dl - HIGH CARDIOVASCULAR RISK Normal [facility] Comment on above: Performed By: #### D ATTERIC, DATBMP ####[facility] [address] [place] [address]Dr. Ольга Dacosta LDL CALC NORMAL SEE BELOW Normal [facility] Comment on above: Result Comment: <100 mg/dl OPTIMAL 100 - 129 mg/dl NEAR OR ABOVE OPTIMAL 130 - 159 mg/dl BORDERLINE HIGH 160 - 189 mg/dl HIGH >190 mg/dl VERY HIGH Performed By: #### D ATTERIC, DATBMP ####[facility] [address] [place] [address]Dr. Nerissakathy Dacosta Potassium [Moles/Vol] 4.4 mmol/L Normal 3.5-5.1 [facility] Comment on above: Performed By: #### D ATTERIC, DATBMP ####[facility] [address] [place] [address]Dr. Ольга Dacosta Sodium [Moles/Vol] 139 mmol/L Normal 136-145 [facility] Comment on above: Performed By: #### D ATTERIC, DATBMP ####[facility] [address] [place] [address]Dr. Ольга Dacosta Triglyceride [Mass/Vol] 75 mg/dL Normal <=150 [facility] Comment on above: Performed By: #### D ATTSH, DATBMP ####[facility] [address] [place] [address]Dr. Ольга Dacosta Urea nitrogen [Mass/Vol] 25.0 mg/dL Critically high 7.0-18.0 [facility] Comment on above: Performed By: #### D ATTSH, DATBMP ####[facility] [address] [place], [place] [address]Yy. Ольга Dacosta Urea nitrogen/Creatinine [Mass ratio] 42.4 mg/mg Normal [facility] Comment on above: Performed By: #### D ATTSH, DATBMP ####[facility] [address] [place], [place] [address]IuRafia Dacosta VLDL CALC 15.0 mg/dL Normal [facility] Comment on above: Performed By: #### D ATTSH, DATBMP ####[facility] [address] [place], [place] [address]Ja. Ольга Dacosta VC COMP CONSULTATIONon 02-28 VC COMP CONSULTATION Patient: JB ESTRELLA Exam Date: 02/28/2022 : 1950 Gender:F Ordering : DR REINA TAN M.D. Admission #: [id number] Family : Order #: [id number] CLICK HERE TO VIEW EXAM RADIOLOGY REPORT [...] arterial disease 5. CEAP: C3, EC, AP, WV PLAN: 1. Continued use of compression stockings [...] Gil M.D. on 02/28/2022 at 13:38 Normal [facility] VC VENOUS REFLUX TITA LMTon 0 02-28-2022 VC VENOUS REFLUX TITA LMT Patient: JB ESTRELLA Exam Date: 02/28/2022 : 1950 Gender:F Ordering : DR REINA TAN M.D. 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 Mid/med [...] Gil M.D. on 02/28/2022 at 09:48 Normal [facility] MAMM SCREEN 3D TITA CADon 01-21-2022 MG MAMM SCREEN 3D TITA CAD Patient: JB ESTRELLA Exam Date: 01/21/2022 : 1950 Gender:F Ordering : DR ALDEN JAMISON D.O. Admission #: [id number] Family : Order #: [id number] CLICK HERE TO VIEW EXAM RADIOLOGY REPORT [...] lung cancer at age 61. LOCATION: [facility] BREAST COMPOSITION: Scattered areas fibroglandular density. [...] Tan MD on 01/21/2022 at 14:35 Normal [facility] URINALYSISOrdered By: Danielle de la rosa on 12-12-2021 Bacteria LM Ql (Urine sed) Trace /HPF Normal Trace/HPF [facility] UA Auto SS Bilirubin Ql (U) Negative [...] Interpretation Code Negative [facility] UA Auto SS Niwot.plasma/Lithiu m.RBC (Bld) [Mass ratio] 4-20 /HPF Normal 0-3/HPF [...] [facility] UA Auto SS Urobilinogen Qn (U) [id number] {Cortez'U}/dL Normal 0.0 - 1.0 EU/dL [facility] UA Auto SS WBC Auto Ql (U) Negative (12/12/21 11:49 AM) Normal Negative [facility] UA Auto SS WBC LM.HPF (Urine sed) [#/Area] 0-5 /HPF Normal 0-5/HPF [facility] UA Auto SS Vital Signs Date Time Vital Sign Value Performing Clinician Facility 11-11-2023 15:50-0400 Body height 162.56 cm [facility] 11-11-2023 15:50-0400 Body mass index (BMI) [Ratio] 36.7 kg/m2 [facility] 11-11-2023 15:50-0400 Body weight 97.12 kg [facility] 11-11-2023 15:50-0400 Diastolic blood pressure 84 mm[Hg] [facility] 11-11-2023 15:50-0400 Heart rate 73 /min [facility] 11-11-2023 15:50-0400 Respiratory rate 12 /min [facility] 11-11-2023 15:50-0400 Systolic blood pressure 132 mm[Hg] [facility] 05-07-2023 08:03-0400 Blood Pressure Location Ramila Lue [facility] 05-07-2023 08:03-0400 Diastolic blood pressure 73 mm[Hg] Ramila Lue [facility] 05-07-2023 08:03-0400 Heart rate 70 /min Ramila Lue [facility] 05-07-2023 08:03-0400 Respiratory rate 16 /min Ramila Lue [facility] 05-07-2023 08:03-0400 Systolic blood pressure 127 mm[Hg] Ramila Lue [facility] 04-22-2023 08:45-0400 Body height 162.56 cm Alden Ball Other [employer] Other 04-22-2023 08:45-0400 Body mass index (BMI) [Ratio] 36.8 kg/m2 Alden Ball Other [employer] Other 04-22-2023 08:45-0400 Body weight 97.25 kg Alden Ball Other [employer] Other 04-22-2023 08:45-0400 Diastolic blood pressure 83 mm[Hg] Alden Ball Other [employer] Other 04-22-2023 08:45-0400 Respiratory rate 12 /min Alden Ball Other [employer] Other 04-22-2023 08:45-0400 Systolic blood pressure 135 mm[Hg] Alden Ball Other [employer] Other 12-30-2022 08:45-0400 Body height 162.56 cm Alden Ball Other [employer] Other 12-30-2022 08:45-0400 Body mass index (BMI) [Ratio] 37.35 kg/m2 Alden Ball Other [employer] Other 12-30-2022 08:45-0400 Body weight 98.7 kg Alden Ball Other [employer] Other 12-30-2022 08:45-0400 Diastolic blood pressure 74 mm[Hg] Alden Ball Other [employer] Other 12-30-2022 08:45-0400 Respiratory rate 12 /min Alden Ball Other [employer] Other 12-30-2022 08:45-0400 Systolic blood pressure 121 mm[Hg] Alden Ball Other [employer] Other 11-01-2022 10:30-0400 Body height 162.56 cm Alden Ball Other [employer] Other 11-01-2022 10:30-0400 Body mass index (BMI) [Ratio] 37.72 kg/m2 Alden Ball Other [employer] Other 11-01-2022 10:30-0400 Body weight 99.7 kg Alden Ball Other [employer] Other 11-01-2022 10:30-0400 Diastolic blood pressure 72 mm[Hg] Alden Ball Other [employer] Other 11-01-2022 10:30-0400 Respiratory rate 12 /min Alden Ball Other [employer] Other 11-01-2022 10:30-0400 Systolic blood pressure 122 mm[Hg] Alden Ball Other [employer] Other 05-01-2022 08:17-0400 Blood Pressure Location Ramila Lue [facility] 05-01-2022 08:17-0400 Diastolic blood pressure 80 mm[Hg] Ramila Lue [facility] 05-01-2022 08:17-0400 Heart rate 74 /min Ramila Lue [facility] 05-01-2022 08:17-0400 Systolic blood pressure 132 mm[Hg] Ramila Lue [facility] 12-12-2021 11:07-0400 Blood Pressure Location Ramila Lue [facility] 12-12-2021 11:07-0400 Diastolic blood pressure 83 mm[Hg] Ramila Lue [facility] 12-12-2021 11:07-0400 Heart rate 69 /min Ramila Lue [facility] 12-12-2021 11:07-0400 Respiratory rate 16 /min Ramila Lue [facility] 12-12-2021 11:07-0400 Systolic blood pressure 135 mm[Hg] Ramila Lue [facility] Encounters Encounter Date Encounter Type Care Provider Facility Start: 05-12-2024 ambulatory Ramila Pradhan Facility:[facility] Start: 12-19-2023 End: 12-19-2023 ambulatory CLAY TORRES Not Available Start: 12-16-2023 End: 12-16-2023 ambulatory ADRIANA BRICENO Not Available Start: 12-09-2023 End: 12-09-2023 ambulatory ADRIANA BRICENO Not Available Start: 12-05-2023 End: 12-05-2023 ambulatory [facility] Start: 12-02-2023 End: 12-02-2023 ambulatory ADRIANA BRICENO Not Available Start: 11-11-2023 End: 11-11-[address] [facility] Work Phone: Start: 11-11-2023 End: 11-11-2023 Patient encounter procedure [facility] Work Phone: Start: 10-30-2023 End: 10-31-2023 ambulatory ADRIANA BRICENO Not Available Start: 10-01-2023 Non-patient / Non-visit [facility] Work Phone: Start: 09-30-2023 Non-patient / Non-visit [facility] Work Phone: Start: 09-25-2023 Non-patient / Non-visit [facility] Work Phone: Start: 06-25-2023 End: 06-25-2023 ambulatory DEANA LOMAS Not Available Start: 06-10-2023 End: 06-10-2023 ambulatory Alden Jamison Other [employer] Other Start: 06-10-2023 Telephone encounter Alden MARTÍNEZ [facility] Start: 06-09-2023 End: 06-09-2023 ambulatory GAIL ELIJAH Not Available Start: 05-07-2023 End: 05-08-2023 ambulatory Ramila Pradhan Facility:[facility] Start: 05-07-2023 End: 05-07-2023 Patient encounter procedure Ramila Pradhan [facility] Start: 04-22-2023 End: 04-22-2023 ambulatory Alden Jamison Other [employer] Other Start: 04-22-2023 Office outpatient visit 15 minutes Alden Jamison [facility] Start: 02-03-2023 End: 02-03-2023 ambulatory Alden Jamison Other [employer] Other Start: 02-03-2023 Telephone encounter Alden MARTÍNEZ [facility] Start: 01-24-2023 End: 01-24-2023 ambulatory Alden Jamison Other [employer] Other Start: 01-24-2023 Telephone encounter Alden MARTÍNEZ [facility] Start: 01-08-2023 End: 01-08-2023 ambulatory Alden Jamison Other [employer] Other Start: 01-08-2023 Telephone encounter Alden MARTÍNEZ [facility] Start: 12-30-2022 End: 12-30-2022 ambulatory Alden Jamison Other [employer] Other Start: 12-30-2022 Office outpatient visit 15 minutes Alden Jamison [facility] Start: 12-12-[address] ALDEN JAMISON Facili ty:[facility]1 Start: 12-05-2022 End: 12-06-[address] REINA TAN Facility:[facility] Start: 11-28-2022 End: 11-29-[address] REINA TAN Facility:[facility] Start: 11-25-2022 End: 11-26-[address] REINA TAN Facility:[facility] Start: 11-13-2022 End: 11-14-[address] REINA TAN Facility:[facility] Start: 11-06-2022 End: 11-07-[address] REINA TAN Facility:[facility] Start: 11-04-2022 End: 11-04-2022 ambulatory Alden Jamison Other [employer] Other Start: 11-04-2022 Telephone encounter Alden Shaheen MARTÍNEZ [facility] Start: 11-01-2022 End: 11-01-2022 ambulatory Alden Jamison Other [employer] Other Start: 11-01-2022 Office outpatient visit 15 minutes Alden Jamison [facility] Start: 10-23-2022 End: 10-24-[address] REINA TAN Facility:[facility] Start: 10-18-2022 End: 10-19-[address] REINA TAN Facility:[facility] Start: 05-28-2022 End: 05-29-[address] DOCTOR JUAN Facility:[facility] Start: 05-27-2022 End: 05-28-[address] DOCTOR JUAN Facility:[facility] Start: 05-01-2022 End: 05-01-2022 Patient encounter procedure Ramila Pradhan [facility] Start: 02-28-2022 End: 03-01-[address] REINA TAN Facility:[facility] Start: 01-22-2022 End: 01-22-2022 Patient encounter procedure Ed Kramer Jr. [facility] Start: 01-21-2022 End: 01-22-[address] ALDEN JAMISON Facility:[facility] Start: 12-12-2021 End: 12-12-2021 Lab Drop off Ramila M. Krystae [facility] Start: 12-12-2021 End: 12-12-2021 Patient encounter procedure Ramila Morocho. Krystae [facility] Procedures Date Procedure Procedure Detail Performing Clinician Start: 2020 Cataract extraction and insertion of intraocular lens Ramila Lue Start: 03-21-2020 Cataract extraction and insertion of intraocular lens Ramila Lue Cholecystectomy Ramila Lue Procedure on knee Ramila Lue Plan of Treatment Date Care Activity Detail Author Start: 11-11-2023 Patient referral [facility] Work Phone: Patient referral [facility] Work Phone: [facility] Immunizations Immunization Date Immunization Notes Care Provider Sulaiman hebert 04-22-2023 influenza virus vaccine, unspecified formulation [facility] 04-22-2023 influenza, high dose seasonal, preservative-free Alden Jamison Other [employer] Other 12-30-2022 zoster vaccine recombinant Alden Jamison Other [facility] 05-27-2022 influenza virus vaccine, split virus (incl. purified surface antigen) Alden Jamison Other [employer] Other 05-27-2022 influenza virus vaccine, unspecified formulation [facility] 06-30-2021 SARS-CoV-2 (COVID-19 ) Ad26 vaccine, recombinant Ramila Pradhan [facility] Comment on above: Result Comment: 2021: [id number] 05-25-2021 influenza virus vaccine, split virus (incl. purified surface antigen) Alden Jamison Other [employer] Other 05-25-2021 influenza virus vaccine, unspecified formulation Ramila Pradhan [facility] 09-29-2020 COVID-19 vaccine, vector-nr, rS-Ad26, PF, 0.5 mL; Translations: [Susana COVID-19 Vaccine] Ramila Lue [facility] Comment on above: Reason for Medicatio n: Prophylaxis 05-08-2020 influenza virus vaccine, split virus (incl. purified surface antigen) Alden Jamison Other [employer] Other 05-08-2020 influenza virus vaccine, unspecified formulation Ramila Lue [facility] 05-18-2019 influenza virus vaccine, split virus (incl. purified surface antigen) Alden Jamison Other [employer] Other 05-18-2019 influenza virus vaccine, unspecified formulation [facility] 05-06-2018 influenza virus vaccine, split virus (incl. purified surface antigen) Alden Jamison Other [employer] Other 05-06-2018 influenza virus vaccine, unspecified formulation Ramila Lue [facility] 04-24-2017 influenza virus vaccine, split virus (incl. purified surface antigen) Alden Jamison Other [employer] Other 04-24-2017 influenza virus vaccine, unspecified formulation Ramila Lue [facility] 04-01-2017 influenza virus vaccine, unspecified formulation Ramila Lue [facility] 05-28-2016 pneumococcal polysaccharide vaccine, 23 valent Ramila Lue [facility] 04-22-2016 influenza virus vaccine, split virus (incl. purified surface antigen) Alden Jamison Other [employer] Other 04-22-2016 influenza virus vaccine, unspecified formulation Ramila Lue [facility] 04-22-2016 pneumococcal conjuga te vaccine, 13 valent Ramila Lue [facility] 04-28-2015 influenza virus vaccine, split virus (incl. purified surface antigen) Alden Jamison Other [employer] Other 04-28-2015 influenza virus vaccine, unspecified formulation [facility] 04-19-2015 pneumococcal conjuga te vaccine, 13 valent Alden Jamison Other [facility] Payers Date Payer Category Payer Unknown [id number] 2.16.8 [id number] 2020 Unknown [id number] 1960 Medicare [id number] 2.1 [id number] 1959 Self-pay [id number] 1959 Unknown [id number] 1950 Unknown [id number] 2.16.84 0.1.924961.3.579.2.593 1950 Unknown [id number] 2.16.84 0.1.034533.3.579.2.593 1950 Unknown [id number] 2.16.84 0.1.442913.3.579.2.593 1949 Unknown [id number] 2.16.84 0.1.421004.3.579.2.593 1950 Unknown [id number] 2.16.84 0.1.770961.3.579.2.593 1950 Unknown [id number] 2.16.84 0.1.259170.3.579.2.593 1949 Unknown [id number] 2.16.84 0.1.286388.3.579.2.593 1949 Unknown [id number] 2.16.84 0.1.517774.3.579.2.593 1949 Unknown [id number] 2.16.84 0.1.391935.3.579.2.593 1949 Unknown [id number] 2.16.84 0.1.825378.3.579.2.593 1949 Unknown [id number] 2.16.8 40.1.735014.3.579.2.727 1949 Unknown [id number] 2.16.8 40.1.269938.3.579.2.727 1949 Unknown [id number] 2.16.8 40.1.339291.3.579.2.1286 1949 Unknown [id number] 2.16.84 0.1.221804.3.579.2.1259 1949 Unknown [id number] 2.16.84 0.1.162430.3.579.2.1259 1950 Unknown [id number] 2.16.84 0.1.780834.3.579.2.1258 1950 Unknown [id number] 2.16.84 0.1.701979.3.579.2.1258 1949 Unknown [id number] 2.16.84 0.1.174016.3.579.2.1258 1950 Unknown [id number] 2.16.84 0.1.002956.3.579.2.9 1950 Unknown [id number] 2.16.840 .1.365809.3.579.2.1258 1950 Unknown [id number] 2.16.840. 1.587957.3.579.2.1259 Unknown [id number] 2.16.84 0.1.556126.3.579.2.593 Unknown [id number] 2.16.84 0.1.301757.3.579.2.593 Social History Date Type Detail Facility Start: 12-12-2021 End: 05-07-2023 Tobacco smoking status Ex-smoker (finding) [facility] Sex Assigned At Female [facility] Tobacco smoking status Never [facility] Start: 1950 Sex Assigned At Female F [facility] Medical Equipment Procedure Code Equipment Code Equipment Origin al Text Equipment Identifier Dates [id number] FDA Start: 03-21-2020 {[id number] FDA Start: 2020 Functional Status Date Assessment Result Facility 05-07-2023 Functional Status N/A [facility] 05-01-2022 Functional Status N/A [facility] Clinical Notes 12-12-2021 to 05-07-2023 Note Date [...] include: ?8 oz (237 mL) of milk, pgdhvec-hiilqsfpqskh-hyumy milk, and calcium-fortifiedfruit juice. Calcium-fortified means that [...] ?Spinach (cooked), rhubarb, beets, sweet potatoes, and Irish chard. ?Peanuts. ?Potato chips, welsh fries, and baked potatoes with skin on. ?Nuts and nut products. ?Chocolate. If you regularly take a diuretic medicine, make sure to eat at least 1 or 2 servings of fruits or vegetables that are high in potassium each day. These include: ?Avocado. ?Banana. ?Anderson, prune, carrot, or tomato juice. ?Baked potato. [...] magnesium, fish oil, or vitamin B6. Take rihn-zmj-hehqhaf and prescription medicines only as told by [...] Casseroles. Pizza. Lasagna. Frozen meals. Potato chips. [place] Citizen fries. The items listed above may not [...] provider. Document Revised: 03/25/2022 Document Reviewed: 03/25/2022 [employer] Patient Education 2022 [employer] Follow Up Care 05/01/2022 08:32:42 With:Lorne GONZALEZ, Ramila Pascal, URL, URO Address: When: Unknown Comments:Sched [facility]itho [facility] Evaluation note Encounter Date Diagnosis Assessment Notes Mar, Acute left-sided low back pain without sciatica (ICD-10 - M54.50) Push fluids ER or call office w/ recurrent flank pain or hematuria Mar, Gross hematuria (ICD-10 - R31.0) Push fluids CT abd/pelvis to r/o renal tumor, renal stone, hydronephrosis f/u for hematuria evaluation [employer] Other 06-05-2023 Evaluation note* Encounter Date Diagnosis Assessment Notes Treatment Notes Treatment Clinical Notes Dec, Cervical spondylosis (ICD-10 - M47.812) ROM exercises, ice/heat and rest. Begin NSAIDs and muscles relaxant at night. PT if no improvement. XR Dec, Torticollis (ICD-10 - M43.6) Heat/ice and NSAIDs/muscle relaxant. PT if no improvement Dec, Dry mouth (ICD-10 - R68.2) Push water, lozenges [employer] Other 04-07-2023 Evaluation note* Encounter Date Diagnosis [...] Tylenol and Motrin. ROM exercises, Voltaren Gel [employer] Other 10-05-2022 Hospital Discharge instructions Patient Education [...] 06/30/2013 Document Revised: 03/03/2019 Document Reviewed: 03/03/2019 [employer] Patient Education 2020 [employer] 05/01/2022 08:20:59 Calorie Counting for Weight Loss [...] 07/14/2006 Document Revised: 04/02/2019 Document Reviewed: 06/13/2017 [employer] Patient Education 2020 [employer] Follow Up Care 12/12/2021 12:13:24 With:Lorne GONZALEZ, TEDDY Gonzalez, URO Address: When:Within 1 Year(s) [facility] Hospital Discharge instructions Patient Education 12/12/2021 [...] Follow these instructions at home: Medicines Take wixh-fmv-ezwcldm and prescription medicines only as told by [...] or the blood stops without treatment. Take jyut-bcd-ezzhfom and prescription medicines only as told by your health care provider. Drink enough fluid to keep your urine clear or pale yellow. This information is not intended to replace advice given to you by your health care provider. Make sure you discuss any questions you have with your health care provider. Document Released: 07/14/2006 Document Revised: 12/08/2019 Document Reviewed: 08/16/2017 [employer] Patient Education 2020 [employer] Follow Up Care 06/06/2021 10:30:38 With:Lue MD, TEDDY Gonzalez, URO Address: When:3 months [facility] evaluation + Plan note Future Appointments Appointment Date:12/21/2021 07:30:00 AM Scheduled Provider: Location:.PH[place]ICAL [place] Appointment Type:PT Pelvic Floor/UI Eval (FT) Appointment Date:05/01/2022 08:00:00 AM Scheduled Provider:Ramila Pradhan MD Location:[facility] Appointment Type:URO Office Visit [facility] evaluation + Plan note Future Appointments Appointment Date:12/21/2021 07:30:00 AM Scheduled Provider: Location:.[place]ICAL [place] Appointment Type:PT Pelvic Floor/UI Eval (FT) Appointment Date:05/01/2022 08:00:00 AM Scheduled Provider:Ramila Pradhan MD Location:[facility] Appointment Type:URO Office Visit Diagnostic Tests Pending * [facility]ments Appointment Date:02/06/2022 [...] (FT) Appointment Date:03/18/2022 08:30:00 AM Scheduled Provider: Location:FT.PHYSICAL [place] Appointment Type:PT Pelvic Floor/UI Re-Eval (FT) Appointment Date:05/01/2022 08:00:00 AM Scheduled Provider:Ramila Pradhan MD Location:[facility] Appointment Type:URO Office Visit [facility] evaluation + Plan note Future Appointments Appointment Date:05/07/2023 08:00:00 AM Scheduled Provider:Lorne GONZALEZ, Ramila Pascal Location:[facility] Appointment Type:URO Office Visit [facility] evalwsfybw [facility] [employer] Other Evaluation noteNo assessment information available [facility] Work Phone: Evaluation note* Diagnosis Onset Date Resolution Status Rectal bleeding acute Trapezius muscle strain none active Neck pain noneactive [facility] Work Phone: History general Narrative - Reported* Type Description [...] History COLONOSCOPY Hospitalization History SEE SURGICAL HX [facility] [employer] Other Hospital course Narrative No data available for this section [facility] Hospital Discharge instructions No data available for this section [facility] Discharge instructionsAmbulatory Orders* Referral to General Surgery Location: None Selected [facility] Work Phone: Progress note No data available for this section [facility] Summary Purpose Family History No Family History Records Found No data available for this section No Family History Records FoundNo Family History Records FoundNo Family History Records Found Advance Directives No Advanced Directives Records Found Advance Directive Response Recorded Date/ Time Advance Directives No November 10, 2 024 3:40pm Chief Complaint and Reason for Visit Chief Complaint Amb Documentation Amb Documentation back pain/bloody stool Chief Complaint Amb Documentation Amb Documentation back pain/bloody stool Reason for Visit Rectal bleeding Trapezius muscle strain Neck pain Additional Source Comments Care Team (unrecognized sect ion and content) Team Status: Active Member Role Status Dates Alden Jamison DO Primary Care Provider Active Team Status: Active Member Role Status Dates Alden Jamison DO Primary Care Provider Active Start: September 25, 2023 RADHA Jeronimo Attending Provider Active St art: September 25, 2023 Team Status: Active Member Role Status Dates Alden Jamison DO Primary Care Provider Active Start: September 30, 2023 RADHA Jeronimo Attending Provider Active St art: September 30, 2023 Team Status: Active Member Role Status Dates Alden Jamison DO Primary Care Provide r, Attending Provider Active Start: October 01, 2023 Team Status: Inactive Member Role Status Dates Alden Jamison DO Primary Care Provide r, Attending Provider Active Start: November 11, 2023 End: November 11, 2023 REASON FOR VISIT (unrecogniz ed section and content) FELL HURT SHOULDER AND NECKU pdateNeck PainXray resultsMammogram resultsmedication questionTBHLab results INFORMATION SOURCE (unrecogn ized section and content) DATE CREATED AUTHOR 12/12/2022 [facility] DATE CREATED AUTHOR AUTHOR'S ORGANIZ ATION 05/13/2023 [facility] DATE CREATED AUTHOR AUTHOR'S ORGANIZ ATION 12/07/2023 [facility] DATE CREATED AUTHOR AUTHOR'S ORGANIZ ATION 12/21/2023 [facility] EPIC Goals (unrecognized section and content) Goals may be documented in a n alternate section FOR RECORDS PERTAINING TO PATIENTS WHO ARE [...] BE BASED ON THE PRIMARY CLINICAL RECORDS. [facility]. provides no warranty or guarantee of the accuracy or completeness of information in this document.
[2023-12-31 07:20] VITALS: BP 128/78; PULSE 78; TEMP 36; O2SAT 95; BMI 36.2
[2023-12-31] MEDS: LACTATED RINGER'S SOLUTION 1,000 ML 50 ML IV (07:30)
--- NOTE | 2023-12-31 07:53 | PM.GSPRC ---
Date of procedure: 12/31/23 Indications for Procedure: Rectal bleeding Pre-op diagnosis: Rectal bleeding Post-op diagnosis: other (Diverticulosis/hemorrhoids) Procedure: colonoscopy Findings: Diverticulosis/mixed hemorrhoids internal mostly Anesthesia: MAC Surgeon: Mitch Jett Procedure Summary: PROCEDURE: The patient was taken to the Endoscopy Suite, placed in the left lateral recumbent position, given IV sedation as above. A rectal digital exam was performed. The sphincter tone was found to be normal. No rectal masses were appreciated. The Olympus video colonoscope was advanced under direct visualization to the rectum, sigmoid colon, descending colon, transverse colon and ascending colon to the ileocecal valve. The underside of the valve was seen. Appendiceal lumen was visualized. The scope was slowly withdrawn with air being desufflated as it was withdrawn. No gross tumors or polyps were seen. She had a few diverticuli small in the descending and sigmoid colon. On retroflexion of the scope she had internal hemorrhoids which were slightly enlarged but no active bleeding seen. The patient tolerated the procedure well and went to the Recovery Area in satisfactory condition. I recommend the patient use a bulk laxative on a regular basis and follow up as needed. If bleeding should continue she may see me in the office and consider hemorrhoidectomy as an outpatient at a later date. Since she is age 73 do not recommend repeat screening colonoscopy unless problems. Estimated blood loss (mL): 0 Specimens: None Complications: No Pathology: none sent Condition: stable Disposition: PACU
[2023-12-31 08:30] VITALS: BP 141/71; PULSE 66; O2SAT 92
[2023-12-31 08:47] VITALS: BP 121/65; PULSE 65; O2SAT 94
== END 2023-12-31 09:08 | disposition home or self-care (01) ==
PROVIDERS: PCP Internal Medicine; Visit Provider Surgery
PROC: (CPT 45378; principal; 2023-12-31 07:55)
DX: K64.8 Other hemorrhoids (principal); K57.30 Diverticulosis of large intestine without perforation or abscess without bleeding; K59.00 Constipation, unspecified; Z87.891 Personal history of nicotine dependence; J44.9 Chronic obstructive pulmonary disease, unspecified; Z90.49 Acquired absence of other specified parts of digestive tract
CPT/HCPCS: 45378; J2704

== ENCOUNTER 2024-02-02 07:55 | Outpatient (OUT) | payer MEDICARE, OTHER, SELFPAY ==
--- NOTE | 2024-02-02 07:58 | MM_ITS ---
Patient Name: JB ESTRELLA MR#: [id number] : 1950 Exam Date: 02/02/2024 Ordering Doctor: DR Jb Okeefe . RADIOLOGY REPORT PROCEDURE: MM TOMOSYNTHESIS SCREENING BI COMPARISON: MM TOMOSYNTHESIS SCREENING BI, 01/24/2023. INDICATIONS: Screening Calculator Name NCI Breast Cancer Risk Assessment Tool 5 Year Breast Cancer Risk 3.70% Lifetime Breast Cancer Risk 8.40% Personal Breast Cancer No Personal Ovarian Cancer No Treatments None Family Cancers Sister with breast cancer at age 51; Mother with lung cancer at age 62. LOCATION: [facility] BREAST COMPOSITION: There are scattered areas of fibroglandular density. FINDINGS: DIAGNOSTIC CATEGORY 2--BENIGN FINDING. NO CHANGE FROM COMPARISON. Scattered benign-appearing nodules are present. Scattered benign-appearing calcifications are present. Scattered benign-appearing lymph nodes are present. RIGHT BREAST: No significant suspicious finding. LEFT BREAST: No significant suspicious finding. RECOMMENDATIONS: ROUTINE MAMMOGRAM AND CLINICAL EVALUATION IN 12 MONTHS. PLEASE NOTE: A NORMAL MAMMOGRAM DOES NOT EXCLUDE THE POSSIBILITY OF BREAST CANCER. A CLINICALLY SUSPICIOUS PALPABLE LUMP SHOULD BE BIOPSIED. Dictated by: Gonzalo Joseph MD on 02/02/2024 at 09:07 Approved by: Gonzalo Joseph MD on 02/02/2024 at 09:08
--- OUTSIDE RECORDS SUMMARY | 2024-02-02 07:58 | XMS_ITS | CCD ---
Author Organization [facility] Care Team Providers Care Sweep Press Operator Name Role Phone ALDEN JAMISON Primary Care [...] Unavailable WEST, DR REINA Delgado Attending Unavailable ZIEBER, DR AASHISH Zaldivar Consulting Unavailable DOMINICK, DR REINA Delgado Attending Unavailable DOMINICK, DR REINA Delgado Admitting Unavailable DOMINICK, DR REINA Delgado Consulting Unavailable SUMMER, DR HARO Primary Care Unavailable Ramila Pradhan Attending Unavailable Ramila Pradhan Attending Unavailable RADHA GIBBS Attending Unavailable ALDEN JAMISON Referring Unavailable ALDEN JAMISON Primary Care Unavailable KAITY, ADRIANA Reyes Attending Unavailable KAITY, ADRIANA Reyes Referring Unavailable DEANA LOMAS Attending Unavailable KAITY, ADRIANA Reyes Attending Unavailable KAITY, ADRIANA Reyes Attending Unavailable LA MESA, ADRIANA Reyes Attending Unavailable GAIL NAVA Attending Unavailable CLAY TORRES Attending Unavailable KAITY, ADRIANA Reyes Attending Unavailable Allergies Allergy Classification Reported Allergen(s) Allergy Type Date of Onset Reaction(s) Facility (6 sources) Latex; Translations: [latex] Drug allergy 11-13-2015 Eruption of skin (disorder) [facility] Medications Current Medications Medication Drug Class(es) [...] Orally Once a day Active bacillus coagulans [id number] unt / inulin 250 mg oral capsule [...] Basophils (Bld) [#/Vol] 0.0 10 3/uL 0.0-0.1 [facility] Basophils/100 WBC Auto (Bld) on 10-01-2023 Basophils/100 WBC (Bld) 0.5 % 0.2-2.0 [facility] Eosinophils/100 WBC Auto (Bl d)on 10-01-2023 Eosinophils/100 WBC (Bld) 4.6 % 0.9-7.0 [facility] Erythrocyte distribution wid th Auto (RBC) [Ratio]on 10-01-2023 Erythrocyte distribution width (RBC) [Ratio] 16.2 % 11.0-15.0 [facility] Hematocrit Auto (Bld) [Volum e fraction]on 10-01-2023 Hematocrit (Bld) [Volume fraction] 38.0 % 36.0-48.0 [facility] Hemoglobin [Mass/volume] in Bloodon 10-01-2023 Hemoglobin (Bld) [Mass/Vol] 11.3 g/dL 12.0-16.0 [facility] Iron binding capacity [Mass/ volume] in Serum or Plasmaon 10-01-2023 Iron binding capacity [Mass/Vol] 257.0 ug/dL 250.0-450.0 [facility] Iron saturation [Mass Fracti on] in Serum or Plasmaon 10-01-2023 Iron saturation [Mass fraction] 39.7 % [facility] Laboratory - Chemistry and C hemistry - challengeon 10-01-2023 Cobalamin (Vitamin B12) [Mass/Vol] 405.0 pg/mL 193.0-986.0 [facility] Ferritin [Mass/Vol] 345.0 ng/mL 8.0-252.0 [facility] [place] [facility] Iron [Mass/Vol] 102.0 ug/dL 50.0-170.0 [facility] Laboratory - Hematology and Cell countson 10-01-2023 Immature granulocytes/100 WBC (Bld) 0.2 % 0.0-0.5 [facility] Leukocytes [#/volume] correc rock for nucleated erythrocytes in Blood by Automated counon 10-01-2023 WBC corrected for nucl RBC Auto (Bld) [#/Vol] 6.1 10 3/uL 4.0-11.0 [facility] Lymphocytes Auto (Bld) [#/Vo l]on 10-01-2023 Lymphocytes (Bld) [#/Vol] 1.7 10 3/uL 1.2-3.8 [facility] Lymphocytes/100 WBC Auto (Bl d)on 10-01-2023 Lymphocytes/100 WBC (Bld) 27.9 % 20.5-60.0 [facility] MCH Auto (RBC) [Entitic mass ]on 10-01-2023 MCH (RBC) [Entitic mass] 19.9 pg 26.7-34.0 [facility] MCHC Auto (RBC) [Mass/Vol]on 10-01-2023 MCHC (RBC) [Mass/Vol] 29.7 g/dL 29.9-35.2 [facility] MCV Auto (RBC) [Entitic vol] on 10-01-2023 MCV (RBC) [Entitic vol] 66.9 fL 81.0-99.0 [facility] Monocytes Auto (Bld) [#/Vol] on 10-01-2023 Monocytes (Bld) [#/Vol] 0.5 10 3/uL 0.3-0.8 [facility] Monocytes/100 WBC Auto (Bld) on 10-01-2023 Monocytes/100 WBC (Bld) 7.9 % 1.7-12.0 [facility] Neutrophils Auto (Bld) [#/Vo l]on 10-01-2023 Neutrophils (Bld) [#/Vol] 3.6 10 3/uL 1.4-6.5 [facility] Neutrophils/100 WBC Auto (Bl d)on 10-01-2023 Neutrophils/100 WBC (Bld) 58.9 % 43.0-75.0 [facility] No Panel Informationon 09-30 Eosinophils # (Auto) 0.3 10 3/uL 0.0-0.7 [facility] Folate 28.20 ng/mL 8.60-58.90 [facility] Immature Granulocyte # (Auto) 0.01 10 3/uL 0.00-0.03 [facility] Platelets Auto (Bld) [#/Vol] on 10-01-2023 Platelets (Bld) [#/Vol] 232 10 3/uL 150-450 [facility] RBC Auto (Bld) [#/Vol]on RBC (Bld) [#/Vol] 5.68 10 6/uL 4.20-5.40 [facility] RAD - CT Reporton 05-12-2023 RAD - CT Report [id number] #1.00TIFF Normal [facility] Reminderson 05-12-2023 Reminders - From: Angela Henriquez To: KATIE - Recallniraj Pradhan; Sent: 05/12/2023 11:22:11 EDT Show up: 03/28/2024 11:22:00 EDT Subject: KUB/JAK Reminder/Recall to be scheduled prior to patients 1 yr follow up 05/12/24 -patient uses [facility] Ambulatory Visit Summaryon 1 Ambulatory Visit Summary JB ESTRELLA :1950 Visit Date:05/07/2023 Ambulatory Visit Instructions Your Diagnosis Mixed incontinence Nocturia Asymptomatic microscopic hematuria Ureteral stone with hydronephrosis Tests Performed Urnls Dip Stick Auto w/o Microscopy POC [address] CT Abdomen/Pelvis w/o Contrast -- Results Pending [...] Schedule the Following Appointments Follow Up with Ramila Pradhan MD, URL, URO When: Comments: Sched Lt Ureteroscopy/LaserLi [...] Urnls Dip Stick Auto w/o Microscopy POC 67650 (05/07/2023) Bilirubin Urine Dipstick - Negative Blood Urine Dipstick - Negative Glucose Urine Dipstick - Negative Ketones Urine Dipstick - Negative Leukocytes Urine Dipstick - Negative Nitrite Urine Dipstick - Negative Protein Urine Dipstick - Trace Specific Jbphh Urine Dipstick - 1.025 Urine Appearance Urine [...] people ne (more content not included)... Normal [facility] ED Note-Physicianon 05-07-20 ED Note-Physician [id number] 9#1.00TIFF [facility] ED Note-Physician [id number] 4#1.00TIFF [facility] Lab Reportson 05-07-2023 Lab Reports [id number] 1#1.00TIFF [facility] Patient Educationon 05-07-20 Patient Education Nephrology Dietary [...] Spinach (cooked), rhubarb, beets, sweet potatoes, and Romanian chard. ? Peanuts. ? Potato chips, pashto fries, and baked potatoes with skin on. ? Nuts and nut products. ? Chocolate. ? If you regularly take a diuretic medicine, make sure to eat at least 1 or 2 servings of fruits or vegetables that are high in potassium each day. These include: ? Avocado. ? Banana. ? [place], prune, carrot, or tomato juice. ? Baked [...] fish oil, or vitamin B6. ? Take nryz-ish-ttrxawk and prescription medicines only as told by your health care provider. These include supplements. What foods should I limit? Limit your in (more content not included)... Normal [facility] RAD - CT Reporton 05-07-2023 RAD - CT Report [id number] #1.00TIFF Normal [facility] Screenson 05-07-2023 Screens [id number] #1.00TIFF Normal [facility] Urology Office/Clinic Noteon 05-07-2023 Urology Office/Clinic Note Chief Complaint 1yr HPI Staff 1yr DX: Mixed Incontinence, Nocturia & Microscopic Hematuria *No Urology Meds Pt returned from [place] last month. Since then has gone to [...] and ureteral calculous obstruction) Pt returned from [place] last month. Since then has gone to [...] is placed, (more content not included)... Normal [facility] Comment on above: Result Comment: Elec tronically Signed By: Ramila Pradhan MD\.br\Date and Time Signed: 05/07/23 09:20 EDT\.br\Electronically Co-Signed By: Jessica Barr\.br\Date and Time Co-Signed: 05/07/23 08:54 EDT VC INJ FOAM SCLERO W US MLTI on 12-05-2022 VC INJ FOAM SCLERO W US MLTI Patient: JB ESTRELLA Exam Date: 12/05/2022 : 1950 Gender:F Ordering : DR REINA TAN M.D. Admission #: [id number] Family : Order #: [id number] CLICK HERE TO VIEW EXAM RADIOLOGY REPORT [...] Aashish Gil M.D. on 12/05/2022 at 09:41 [facility] VC CONSULT FOLLOWUPon 2022 VC CONSULT FOLLOWUP Patient: JB ESTRELLA Exam Date: 11/28/2022 : 1950 Gender:F Ordering : DR REINA TAN M.D. Admission #: [id number] Family : Order #: [id number] CLICK HERE TO VIEW EXAM RADIOLOGY REPORT [...] Reina Tan MD on 11/28/2022 at 08:38 [facility] VC EXT VENOUS RT LIMITEDon 0 11-28-2022 VC EXT VENOUS RT LIMITED Patient: JB ESTRELLA Exam Date: 11/28/2022 : 1950 Gender:F Ordering : DR REINA TAN M.D. Admission #: [id number] Family : Order #: [id number] CLICK HERE TO VIEW EXAM RADIOLOGY REPORT [...] Reina Tan MD on 11/28/2022 at 08:17 [facility] VC INJ FOAM SCLERO W US MLTI on 11-25-2022 VC INJ FOAM SCLERO W US MLTI Patient: BJ ESTRELLA Exam Date: 11/25/2022 : 1950 Gender:F Ordering : DR REINA TAN M.D. Admission #: [id number] Family : Order #: [id number] CLICK HERE TO VIEW EXAM RADIOLOGY REPORT [...] Aashish Gil M.D. on 11/25/2022 at 12:03 [facility] VC CONSULT FOLLOWUPon 2022 VC CONSULT FOLLOWUP Patient: JB ESTRELLARafia Exam Date: 11/13/2022 : 1950 Gender:F Ordering : DR REINA TAN M.D. Admission #: [id number] Family : Order #: [id number] CLICK HERE TO VIEW EXAM RADIOLOGY REPORT [...] Gil M.D. on 11/13/2022 at 09:54 Normal [facility] EXT VENOUS LT LIMITEDon 0 11-13-2022 VC EXT VENOUS LT LIMITED Patient: JB ESTRELLA Exam Date: 11/13/2022 : 1950 Gender:F Ordering : DR REINA TAN M.D. Admission #: [id number] Family : Order #: [id number] CLICK HERE TO VIEW EXAM RADIOLOGY REPORT [...] of left small saphenous vein. Dictated by: aAshish Gil M.D. on 11/13/2022 at 09:49 Approved by: Aashish Gil M.D. on 11/13/2022 at 09:52 Normal [facility] VC ENDOVENOUS ABL 1ST V LTon 11-06-2022 VC ENDOVENOUS ABL 1ST V LT Patient: JB ESTRELLA Exam Date: 11/06/2022 : 1950 Gender:F Ordering : DR REINA TAN M.D. Admission #: [id number] Family : Order #: [id number] CLICK HERE TO VIEW EXAM RADIOLOGY REPORT [...] Aashish Gil M.D. on 11/06/2022 at 14:02 [facility] VC CONSULT FOLLOWUPon 2022 VC CONSULT FOLLOWUP Patient: JB ESTRELLA Exam Date: 10/23/2022 : 1950 Gender:F Ordering : DR REINA TAN M.D. Admission #: [id number] Family : Order #: [id number] CLICK HERE TO VIEW EXAM RADIOLOGY REPORT [...] physical exam and consultation Dictated by: Reina Tna MD on 10/23/2022 at 13:30 Approved by: Reina Tan MD on 10/23/2022 at 13:32 Normal [facility] VC EXT VENOUS RT LIMITEDon 0 10-23-2022 VC EXT VENOUS RT LIMITED Patient: JB ESTRELLA Exam Date: 10/23/2022 : 1950 Gender:F Ordering : DR REINA TAN M.D. Admission #: [id number] Family : Order #: [id number] CLICK HERE TO VIEW EXAM RADIOLOGY REPORT [...] Tan MD on 10/23/2022 at 10:54 Normal [facility] VC ENDOVENOUS ABL 1ST V RTon 10-18-2022 VC ENDOVENOUS ABL 1ST V RT Patient: JB ESTRELLA Exam Date: 10/18/2022 : 1950 Gender:F Ordering : DR REINA TAN M.D. Admission #: [id number] Family : Order #: [id number] CLICK HERE TO VIEW EXAM RADIOLOGY REPORT PROCEDURE: VEIN CENTER ENDOVENOUS ABLATION FIRST VEIN RIGHT GREAT SAPHENOUS COMPARISON: None. INDICATIONS: Pain co-occurrent and due to varicose veins of bilateral legs I83.813 OPERATIVE REPORT: The risks and benefits of the procedure had been previously discussed, and were rediscussed at length. Informed written consent was obtained by md and Efe Hoskins assisted. Time out procedure [...] MD on 10/18/2022 at 10:20 Normal [facility] CBC AUTO DIFFon 05-28-2022 BASO # 0.0 103/ul Normal 0.0-0.1 [facility] Comment on above: Performed By: #### D ATCBC ####[facility] [address] [place], [place] [address]DrRafia Dacosta Basophils/100 WBC (Bld) 0.7 % Normal 0.2-2.0 [facility] Comment on above: Performed By: #### D ATCBC ####[facility] [address] [place], [place] [address]DrRafia Dacosta EO # 0.3 103/ul Normal 0.0-0.7 [facility] Comment on above: Performed By: #### D ATCBC ####[facility] [address] [place], [place] [address]Dr. Ольга Dacosta Eosinophils/100 WBC (Bld) 6.1 % Normal 0.9-7.0 [facility] Comment on above: Performed By: #### D ATCBC ####[facility] [address] [place] [address]Dr. Ольга Dacosta Erythrocyte distribution width (RBC) [Ratio] 16.3 % Critically high 11.0-15.0 [facility] Comment on above: Performed By: #### D ATCBC ####[facility] F[address] [place], [place] [address]Dr. Ольга Dacosta Hematocrit (Bld) [Volume fraction] 39.5 % Normal 36.0-48.0 [facility] Comment on above: Performed By: #### D ATCBC ####[facility] [address] [place], [place] [address]Dr. Ольга Dacosta Hemoglobin (Bld) [Mass/Vol] 12.2 g/dL Normal 12.0-16.0 [facility] Comment on above: Performed By: #### D ATCBC ####[facility] [address] [place], [place] [address]Dr. Ольга Dacosta IG # 0.01 10e3/ul Normal 0.00-0.03 [facility] Comment on above: Performed By: #### D ATCBC ####[facility] [address] [place], [place] [address]Dr. Ольга Dacosta IG % 0.2 % Normal 0.0-0.5 [facility] Comment on above: Performed By: #### D ATCBC ####[facility] [address] [place], [place] [address]Dr. Ольга Dacosta LYMPH # 1.9 103/ul Normal 1.2-3.8 [facility] Comment on above: Performed By: #### D ATCBC ####[facility] [address] [place], [place] [address]Dr. Ольга Dacosta Lymphocytes/100 WBC (Bld) 34.8 % Normal 20.5-60.0 [facility] Comment on above: Performed By: #### D ATCBC ####[facility] [address] [place] [address]Dr. Ольга Dacosta MCH (RBC) [Entitic mass] 20.4 pg Critically low 26.7-34.0 [facility] Comment on above: Performed By: #### D ATCBC ####[facility] [address] [place] [address]Dr. Ольга Dacosta MCHC (RBC) [Mass/Vol] 30.9 g/dL Normal 29.9-35.2 [facility] Comment on above: Performed By: #### D ATCBC ####[facility] [address] [place] [address]Dr. Ольга Praneeth MCV (RBC) [Entitic vol] 66.2 fL Critically low 81.0-99.0 [facility] Comment on above: Performed By: #### D ATCBC ####[facility] [address] [place], [place] [address]Dr. Ольга Dacosta MONO # 0.5 103/ul Normal 0.3-0.8 [facility] Comment on above: Performed By: #### D ATCBC ####[facility] [address] [place], [place] [address]Dr. Nerissakathy Dacosta Monocytes/100 WBC (Bld) 9.2 % Normal 1.7-12.0 [facility] Comment on above: Performed By: #### D ATCBC ####[facility] [address] [place], [place] [address]Dr. Ольга Dacosta NEUT # 2.7 103/ul Normal 1.4-6.5 [facility] Comment on above: Performed By: #### D ATCBC ####[facility] [address] [place], [place] [address]Dr. Ольга Dacosta Neutrophils/100 WBC (Bld) 49.0 % Normal 43.0-75.0 [facility] Comment on above: Performed By: #### D ATCBC ####[facility] [address] [place], [place] [address]Dr. Ольга Dacosta Platelet mean volume (Bld) [Entitic vol] 11.4 fL Normal 9.5-13.5 [facility] Comment on above: Performed By: #### D ATCBC ####[facility] [address] [place] [address]Dr. Ольга Dacosta PLT 243 103/ul Normal 150-450 [facility] Comment on above: Performed By: #### D ATCBC ####[facility] [address] [place], [place] [address]Dl. Ольга Dacosta RBC 5.97 106/ul Critically high 4.20-5.40 [facility] Comment on above: Performed By: #### D ATCBC ####[facility] [address] [place] [address]Dr. Ольга Dacosta WBC 5.5 103/ul Normal 4.0-11.0 [facility] Comment on above: Performed By: #### D ATCBC ####[facility] [address] [place] [address]Dr. Ольга Dacosta JERMAN - TSHon 05-28-2022 TSH 1.495 uIU/mL Normal 0.358-3.740 [facility] Comment on above: Performed By: #### Elke BALDERRAMA DATBMP ####[facility] [address] [place] [address]Dr. Ольга Dacosta TSH RANGE SEE BELOW Normal [facility] Comment on above: Result Comment: <0.3 4 UIU/ml HYPERTHYROID 0.34-5.60 UIU/ml EUTHYROID >5.60 UIU/ml HYPOTHYROID Performed By: #### D TACOS DATBMP ####[facility] [address] [place] [address]Dr. Ольга Dacosta JERMAN- BMP WITH LIPIDon 2021 Anion gap [Moles/Vol] 10.3 mmol/L Normal [facility] Comment on above: Performed By: #### D TACOS, DATBMP ####[facility] [address] [place] [address]Dr. Ольга Dacosta Calcium [Mass/Vol] 9.1 mg/dL Normal 8.5-10.1 [facility] Comment on above: Performed By: #### D ATTERIC, DATBMP ####[facility] [address] [place] [address]Dr. Ольга Dacosta Chloride [Moles/Vol] 104 mmol/L Normal 98-107 [facility] Comment on above: Performed By: #### D ATTSH, DATBMP ####[facility] [address] [place] [address]Dr. Ольга Dacosta Cholesterol [Mass/Vol] 162 mg/dL Normal <=200 [facility] Comment on above: Performed By: #### D ATTSH, DATBMP ####[facility] [address] [place] [address]Dr. Ольга Dacosta Cholesterol in HDL [Mass/Vol] 59 mg/dL Normal 40-60 [facility] Comment on above: Performed By: #### D ATTSH, DATBMP ####[facility] [address] [place], [place] [address]Dr. Ольга Dacosta Cholesterol in LDL [Mass/Vol] 88.0 mg/dL Normal [facility] Comment on above: Performed By: #### D ATTSH, DATBMP ####[facility] [address] [place], [place] [address]Dr. Ольга Dacosta CO2 [Moles/Vol] 29.1 mmol/L Normal 21.0-32.0 [facility] Comment on above: Performed By: #### D ATTSH, DATBMP ####[facility] [address] [place] [address]Dr. Ольга Dacosta Creatinine [Mass/Vol] 0.59 mg/dL Normal 0.55-1.02 [facility] Comment on above: Performed By: #### D ATTSH, DATBMP ####[facility] [address] [place] [address]Dr. Ольга Dacosta EGFR-AF INDIAN >60 Normal >=60 [facility] Comment on above: Performed By: #### D ATTSH, DATBMP ####[facility] [address] [place] [address]Dr. Ольга Dacosta EGFR-NON AF INDIAN >60 Normal >=60 [facility] Comment on above: Performed By: #### D ATTSH, DATBMP ####[facility] [address] [place] [address]Dr. Nerissakathy Praneeth Glucose [Mass/Vol] 100 mg/dL Normal 74-106 [facility] Comment on above: Performed By: #### D ATTSH, DATBMP ####[facility] [address] [place] [address]Dr. Ольга Dacosta HDL NORMAL > or = 60 mg/dl - LOW CARDIOVASCULAR RISK <40 mg/dl - HIGH CARDIOVASCULAR RISK Normal [facility] Comment on above: Performed By: #### D ATTERIC, DATBMP ####[facility] [address] [place] [address]Dr. Ольга Dacosta LDL CALC NORMAL SEE BELOW Normal [facility] Comment on above: Result Comment: <100 mg/dl OPTIMAL 100 - 129 mg/dl NEAR OR ABOVE OPTIMAL 130 - 159 mg/dl BORDERLINE HIGH 160 - 189 mg/dl HIGH >190 mg/dl VERY HIGH Performed By: #### D ATTERIC, DATBMP ####[facility] [address] [place] [address]Dr. Ольга Dacosta Potassium [Moles/Vol] 4.4 mmol/L Normal 3.5-5.1 [facility] Comment on above: Performed By: #### D ATTERIC, DATBMP ####[facility] [address] [place] [address]Dr. Ольга Dacosta Sodium [Moles/Vol] 139 mmol/L Normal 136-145 [facility] Comment on above: Performed By: #### D ATTERIC, DATBMP ####[facility] [address] [place] [address]Dr. Ольга Dacosta Triglyceride [Mass/Vol] 75 mg/dL Normal <=150 [facility] Comment on above: Performed By: #### D ATTSH, DATBMP ####[facility] [address] [place] [address]Dr. Ольга Dacosta Urea nitrogen [Mass/Vol] 25.0 mg/dL Critically high 7.0-18.0 [facility] Comment on above: Performed By: #### D ATTSH, DATBMP ####[facility] [address] [place], [place] [address]JjRafia Dacosta Urea nitrogen/Creatinine [Mass ratio] 42.4 mg/mg Normal [facility] Comment on above: Performed By: #### D ATTSH, DATBMP ####[facility] [address] [place], [place] [address]WpRafia Dacosta VLDL CALC 15.0 mg/dL Normal [facility] Comment on above: Performed By: #### D ATTSH, DATBMP ####[facility] [address] [place], [place] [address]Kj. Ольга Dacosta VC COMP CONSULTATIONon 02-28 VC COMP CONSULTATION Patient: JB ESTRELLA Exam Date: 02/28/2022 : 1950 Gender:F Ordering : DR REINA TAN M.D. Admission #: [id number] Family : Order #: [id number] CLICK HERE TO VIEW EXAM RADIOLOGY REPORT [...] arterial disease 5. CEAP: C3, EC, AP, NE PLAN: 1. Continued use of compression stockings [...] Gil M.D. on 02/28/2022 at 13:38 Normal [facility] VC VENOUS REFLUX TITA LMTon 0 02-28-2022 VC VENOUS REFLUX TITA LMT Patient: JB ESTRELLA Exam Date: 02/28/2022 : 1950 Gender:F Ordering : DR REINA TAN M.D. 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 Mid/med [...] Gil M.D. on 02/28/2022 at 09:48 Normal [facility] MG MAMM SCREEN 3D TITA CADon 01-21-2022 MG MAMM SCREEN 3D TITA CAD Patient: JB ESTRELLA Exam Date: 01/21/2022 : 1950 Gender:F Ordering : DR ALDEN JAMISON D.O. Admission #: [id number] Family : Order #: [id number] CLICK HERE TO VIEW EXAM RADIOLOGY REPORT [...] lung cancer at age 61. LOCATION: [facility] BREAST COMPOSITION: Scattered areas fibroglandular density. [...] Tan MD on 01/21/2022 at 14:35 Normal [facility] URINALYSISOrdered By: Danielle d ela rosa on 12-12-2021 Bacteria LM Ql (Urine [...] Interpretation Code Negative [facility] UA Auto SS [place].plasma/Lithiu m.RBC (Bld) [Mass ratio] 4-20 /HPF Normal [...] [facility] UA Auto SS Urobilinogen Qn (U) [id number] {[place]'U}/dL Normal 0.0 - 1.0 EU/dL [facility] UA Auto SS WBC Auto Ql (U) Negative (12/12/21 11:49 AM) Normal Negative [facility] UA Auto SS WBC LM.HPF (Urine sed) [#/Area] 0-5 /HPF Normal 0-5/HPF [facility] UA Auto SS Vital Signs Date Time Vital Sign Value Performing Clinician Facility 11-11-2023 15:50-0400 Body height 162.56 cm [facility] 11-11-2023 15:50-0400 Body mass index (BMI) [Ratio] 36.7 kg/m2 [facility] 11-11-2023 15:50-0400 Body weight 97.12 kg [facility] 11-11-2023 15:50-0400 Diastolic blood pressure 84 mm[Hg] [facility] 11-11-2023 15:50-0400 Heart rate 73 /min [facility] 11-11-2023 15:50-0400 Respiratory rate 12 /min [facility] 11-11-2023 15:50-0400 Systolic blood pressure 132 mm[Hg] [facility] 05-07-2023 08:03-0400 Blood Pressure Location Ramila Lue [facility] 05-07-2023 08:03-0400 Diastolic blood pressure 73 mm[Hg] Ramila Lue [facility] 05-07-2023 08:03-0400 Heart rate 70 /min Ramila Lue [facility] 05-07-2023 08:03-0400 Respiratory rate 16 /min Ramila Lue [facility] 05-07-2023 08:03-0400 Systolic blood pressure 127 mm[Hg] Ramila Lue [facility] 04-22-2023 08:45-0400 Body height 162.56 cm Alden Ball Other [facility] Other 04-22-2023 08:45-0400 Body mass index (BMI) [Ratio] 36.8 kg/m2 Alden Ball Other [facility] Other 04-22-2023 08:45-0400 Body weight 97.25 kg Alden Ball Other [employer] Other 04-22-2023 08:45-0400 Diastolic blood pressure 83 mm[Hg] Alden Ball Other [employer] Other 04-22-2023 08:45-0400 Respiratory rate 12 /min Alden Ball Other [employer] Other 04-22-2023 08:45-0400 Systolic blood pressure 135 mm[Hg] Alden Ball Other [employer] Other 12-30-2022 08:45-0400 Body height 162.56 cm Alden Ball Other [employer] Other 12-30-2022 08:45-0400 Body mass index (BMI) [Ratio] 37.35 kg/m2 Alden Ball Other [employer] Other 12-30-2022 08:45-0400 Body weight 98.7 kg Alden Ball Other [employer] Other 12-30-2022 08:45-0400 Diastolic blood pressure 74 mm[Hg] Alden Ball Other [employer] Other 12-30-2022 08:45-0400 Respiratory rate 12 /min Alden Ball Other [employer] Other 12-30-2022 08:45-0400 Systolic blood pressure 121 mm[Hg] Alden Ball Other [employer] Other 11-01-2022 10:30-0400 Body height 162.56 cm Alden Ball Other [employer] Other 11-01-2022 10:30-0400 Body mass index (BMI) [Ratio] 37.72 kg/m2 Alden Ball Other [employer] Other 11-01-2022 10:30-0400 Body weight 99.7 kg Alden Ball Other [employer] Other 11-01-2022 10:30-0400 Diastolic blood pressure 72 mm[Hg] Alden Ball Other [employer] Other 11-01-2022 10:30-0400 Respiratory rate 12 /min Alden Ball Other [employer] Other 11-01-2022 10:30-0400 Systolic blood pressure 122 mm[Hg] Alden Ball Other [facility] Other 05-01-2022 08:17-0400 Blood Pressure Location Ramila Lue [facility] 05-01-2022 08:17-0400 Diastolic blood pressure 80 mm[Hg] Ramila Lue [facility] 05-01-2022 08:17-0400 Heart rate 74 /min Ramila Lue [facility] 05-01-2022 08:17-0400 Systolic blood pressure 132 mm[Hg] Ramila Lue [facility] 12-12-2021 11:07-0400 Blood Pressure Location Ramila Lue [facility] 12-12-2021 11:07-0400 Diastolic blood pressure 83 mm[Hg] [facility] 12-12-2021 11:07-0400 Heart rate 69 /min [facility] 12-12-2021 11:07-0400 Respiratory rate 16 /min [facility] 12-12-2021 11:07-0400 Systolic blood pressure 135 mm[Hg] [facility] En[facility]ters Encounter Date Encounter Type Care Provider Facility Start: 05-12-2024 ambulatory Ramila Pradhan Facility:[facility] Start: 01-27-2024 End: 01-27-2024 ambulatory ADRIANA BRICENO Not Available Start: 12-19-2023 End: 12-19-2023 ambulatory CLAY TORRES Not Available Start: 12-16-2023 End: 12-16-2023 ambulatory ADRIANA BRICENO Not Available Start: 12-09-2023 End: 12-09-2023 ambulatory ADRIANA BRICENO Not Available Start: 12-05-2023 End: 12-05-2023 ambulatory [facility] Start: 12-02-2023 End: 12-02-2023 ambulatory ADRIANA BRICENO Not Available Start: 11-11-2023 End: 11-11-2023 ambulatory [facility] Work Phone: Start: 11-11-2023 End: 11-11-2023 Patient encounter procedure [facility] Work Phone: Start: 10-30-2023 End: 10-30-2023 ambulatory ADRIANA Reyes KAITY Not Available Start: 10-01-2023 Non-patient / Non-visit [facility] Work Phone: Start: 09-30-2023 Non-patient / Non-visit [facility] Work Phone: Start: 09-25-2023 Non-patient / Non-visit [facility] Work Phone: Start: 06-25-2023 End: 06-25-2023 ambulatory DEANA Germain ABEBE Not Available Start: 06-10-2023 End: 06-10-2023 ambulatory Alden Jamison Other [employer] Other Start: 06-10-2023 Telephone encounter Alden MARTÍNEZ [facility] Start: 06-09-2023 End: 06-09-2023 ambulatory GAIL ELIJAH Not Available Start: 05-07-2023 End: 05-08-2023 ambulatory Ramila Pradhan Facility:[facility] Start: 05-07-2023 End: 05-07-2023 Patient encounter procedure Ramila Pradhan [facility] Start: 04-22-2023 End: 04-22-2023 ambulatory Alden Jamison Other [employer] Other Start: 04-22-2023 Office outpatient visit 15 minutes Alden Jamison [facility] Start: 02-03-2023 End: 02-03-2023 ambulatory Alden Jamison Other [employer] Other Start: 02-03-2023 Telephone encounter Alden MARTÍNEZ [facility] Start: 01-24-2023 End: 01-24-2023 ambulatory Alden Jamison Other [employer] Other Start: 01-24-2023 Telephone encounter Alden Jamison FP [facility] Start: 01-08-2023 End: 01-08-2023 ambulatory Alden Jamison Other [employer] Other Start: 01-08-2023 Telephone encounter Alden MARTNÍEZ G [facility] Start: 12-30-2022 End: 12-30-2022 ambulatory Alden Jamison Other [employer] Other Start: 12-30-2022 Office outpatient visit 15 minutes Alden Jamison [facility] Start: 12-12-[address] ALDEN JAMISON Facili ty:[facility] Start: 12-05-2022 End: 12-06-[address] REINA TAN Facility:[facility] Start: 11-28-2022 End: 11-29-[address] REINA TAN Facility:[facility] Start: 11-25-2022 End: 11-26-[address] REINA TAN Facility:[facility] Start: 11-13-2022 End: 11-14-[address] REINA TAN Facility:[facility] Start: 11-06-2022 End: 11-07-[address] REINA TAN Facility:[facility] Start: 11-04-2022 End: 11-04-2022 ambulatory Alden Jamison Other [employer] Other Start: 11-04-2022 Telephone encounter Alden Jamison [facility] Start: 11-01-2022 End: 11-01-2022 ambulatory Alden Jamison Other [employer] Other Start: 11-01-2022 Office outpatient visit 15 minutes Alden Jamison [facility] Start: 10-23-2022 End: 10-24-[address] REINA TAN Facility:[facility] Start: 10-18-2022 End: 10-19-[address] REINA TAN Facility:[facility] Start: 05-28-2022 End: 05-29-[address] DOCTOR JUAN Facility:[facility] Start: 05-27-2022 End: 05-28-[address] DOCTOR JUAN Facility:[facility] Start: 05-01-2022 End: 05-01-2022 Patient encounter procedure Ramila Pradhan [facility] Start: 02-28-2022 End: 03-01-[address] REINA TAN Facility:[facility] Start: 01-22-2022 End: 01-22-2022 Patient encounter procedure Ed Kramer Jr. [facility] Start: 01-21-2022 End: 01-22-[address] ALDEN JAMISON Facility:[facility] Start: 12-12-2021 End: 12-12-2021 Lab Drop off Ramila Pradhan [facility] Start: 12-12-2021 End: 12-12-2021 Patient encounter procedure Ramila Pradhan [facility] Procedures Date Procedure Procedure Detail Performing Clinician Start: 2020 Cataract extraction and insertion of intraocular lens Ramila Pradhan Start: 03-21-2020 Cataract extraction and insertion of intraocular lens Ramila Pradhan Cholecystectomy Ramila Pradhan Procedure on knee Ramila Pradhan Plan of Treatment Date Care Activity Detail Author Start: 11-11-2023 Patient referral [facility] Work Phone: Patient referral [facility] Work Phone: [facility] Immunizations Immunization Date Immunization Notes Care Provider Sulaiman hebert 04-22-2023 influenza virus vaccine, unspecified formulation [facility] 04-22-2023 influenza, high dose seasonal, preservative-free Alden Jamison Other [employer] Other 12-30-2022 zoster vaccine recombinant Alden Jamison Other [facility] 05-27-2022 influenza virus vaccine, split virus (incl. purified surface antigen) Alden Jamison Other [employer] Other 05-27-2022 influenza virus vaccine, unspecified formulation [facility] 06-30-2021 SARS-CoV-2 (COVID-19 ) Ad26 vaccine, recombinant Ramila Pradhan [facility] Comment on above: Result Comment: 2021: [id number] 05-25-2021 influenza virus vaccine, split virus (incl. purified surface antigen) Alden Jamison Other [employer] [facility] Other 05-25-2021 influenza virus vaccine, unspecified formulation Ramila Pradhan [facility] 09-29-2020 COVID-19 vaccine, vector-nr, rS-Ad26, PF, 0.5 mL; Translations: [Susana COVID-19 Vaccine] Ramila Lue [facility] Comment on above: Reason for Medicatio n: Prophylaxis 05-08-2020 influenza virus vaccine, split virus (incl. purified surface antigen) Alden Jamison Other [facility] Other 05-08-2020 influenza virus vaccine, unspecified formulation Ramila Lue [facility] 05-18-2019 influenza virus vaccine, split virus (incl. purified surface antigen) Alden Jamison Other [employer] Other 05-18-2019 influenza virus vaccine, unspecified formulation [facility] 05-06-2018 influenza virus vaccine, split virus (incl. purified surface antigen) Alden Jamison Other [employer] Other 05-06-2018 influenza virus vaccine, unspecified formulation Ramila Lue [facility] 04-24-2017 influenza virus vaccine, split virus (incl. purified surface antigen) Alden Jamison Other [facility] [employer] Other 04-24-2017 influenza virus vaccine, unspecified formulation Ramila Lue [facility] 04-01-2017 influenza virus vaccine, unspecified formulation Ramila Lue [facility] 05-28-2016 pneumococcal polysaccharide vaccine, 23 valent Ramila Lue [facility] 04-22-2016 influenza virus vaccine, split virus (incl. purified surface antigen) Alden Jamison Other [employer] [facility] Other 04-22-2016 influenza virus vaccine, unspecified formulation Ramila Lue [facility] 04-22-2016 pneumococcal conjuga te vaccine, 13 valent Ramila Lue [facility] 04-28-2015 influenza virus vaccine, split virus (incl. purified surface antigen) Alden Jamison Other [employer] [facility] Other 04-28-2015 influenza virus vaccine, unspecified formulation [facility] 04-19-2015 pneumococcal conjuga te vaccine, 13 valent Alden Jamison Other [facility] Payers Date Payer Category Payer Unknown [id number] 2.16.8 [id number]. 2020 Unknown [id number] 1959 Medicare [id number] 2.1 [id number] 1959 Self-pay [id number] 1959 Unknown [id number] 1950 Unknown [id number] 2.16.84 0.1.464353.3.579.2.593 1949 Unknown [id number] 2.16.84 0.1.203931.3.579.2.593 1949 Unknown [id number] 2.16.84 0.1.037056.3.579.2.593 1949 Unknown [id number] 2.16.84 0.1.310254.3.579.2.593 1949 Unknown [id number] 2.16.84 0.1.112923.3.579.2.593 1949 Unknown [id number] 2.16.84 0.1.980865.3.579.2.593 1949 Unknown [id number] 2.16.84 0.1.690109.3.579.2.593 1949 Unknown [id number] 2.16.84 0.1.608977.3.579.2.593 1949 Unknown [id number] 2.16.84 0.1.507524.3.579.2.593 1949 Unknown [id number] 2.16.84 0.1.275804.3.579.2.593 1949 Unknown [id number] 2.16.8 40.1.676610.3.579.2.727 1949 Unknown [id number] 2.16.8 40.1.839365.3.579.2.727 1949 Unknown [id number] 2.16.8 40.1.333655.3.579.2.1286 1949 Unknown [id number] 2.16.84 0.1.615573.3.579.2.1259 1949 Unknown [id number] 2.16.84 0.1.049683.3.579.2.1258 1949 Unknown [id number] 2.16.84 0.1.684853.3.579.2.1259 1949 Unknown [id number] 2.16.84 0.1.623394.3.579.2.1258 1949 Unknown [id number] 2.16.84 0.1.193983.3.579.2.125 1949 Unknown [id number] 2.16.84 0.1.514070.3.579.2.1258 1949 Unknown [id number] 2.16.84 0.1.221239.3.579.2.1258 1949 Unknown [id number] 2.16.840 .1.659370.3.579.2.1258 1949 Unknown [id number] 2.16.840. 1.464800.3.579.2.1259 Unknown [id number] 2.16.84 0.1.669244.3.579.2.593 Unknown [id number] 2.16.84 0.1.266464.3.579.2.593 Social History Date Type Detail Facility Start: 12-12-2021 End: 05-07-2023 Tobacco smoking status Ex-smoker (finding) [facility] Sex Assigned At Female [facility] Tobacco smoking status Never [facility] Start: 1950 Sex Assigned At Female F [facility] Medical Equipment Procedure Code Equipment Code Equipment Origin al Text Equipment Identifier Dates {[id number] FDA Start: 03-21-2020 {[id number] FDA Start: 2020 Functional Status Date Assessment Result Facility 05-07-2023 Functional Status N/A [facility] 05-01-2022 Functional Status N/A [facility] Clinical Notes 12-12-2021 to 05-07-2023 Note [...] include: ?8 oz (237 mL) of milk, onkclgx-iwhcpzdmrusb-xmqwy milk, and calcium-fortifiedfruit juice. Calcium-fortified means that [...] ?Spinach (cooked), rhubarb, beets, sweet potatoes, and Romanian chard. ?Peanuts. ?Potato chips, pashto fries, and baked potatoes with skin on. ?Nuts and nut products. ?Chocolate. If you regularly take a diuretic medicine, make sure to eat at least 1 or 2 servings of fruits or vegetables that are high in potassium each day. These include: ?Avocado. ?Banana. ?[place], prune, carrot, or tomato juice. ?Baked potato. [...] magnesium, fish oil, or vitamin B6. Take qzdm-lkn-zbkxmxv and prescription medicines only as told by [...] Casseroles. Pizza. Lasagna. Frozen meals. Potato chips. Mongolian fries. The items listed above may not [...] provider. Document Revised: 03/25/2022 Document Reviewed: 03/25/2022 [employer] Patient Education 2022 [employer]. Follow Up Care 05/01/2022 08:32:42 With:Lorne GONZALEZ, Ramila Pascal URL, URO Address: When: Unknown Comments:Gerald Barragan Ureteroscopy/LaserLitho [facility] 04-22-2023 Evaluation note Encounter Date Diagnosis Assessment Notes Mar, Acute left-sided low back pain without sciatica (ICD-10 - M54.50) Push fluids ER or call office w/ recurrent flank pain or hematuria Mar, Gross hematuria (ICD-10 - R31.0) Push fluids CT abd/pelvis to r/o renal tumor, renal stone, hydronephrosis f/u for hematuria evaluation [employer] Other 06-05-2023 Evaluation note* Encounter Date Diagnosis Assessment Notes Treatment Notes Treatment Clinical Notes Dec, Cervical spondylosis (ICD-10 - M47.812) ROM exercises, ice/heat and rest. Begin NSAIDs and muscles relaxant at night. PT if no improvement. XR Dec, Torticollis (ICD-10 - M43.6) Heat/ice and NSAIDs/muscle relaxant. PT if no improvement Dec, Dry mouth (ICD-10 - R68.2) Push water, lozenges [employer] Other 04-07-2023 Evaluation note* Encounter Date Diagnosis [...] Tylenol and Motrin. ROM exercises, Voltaren Gel [employer] Other 10-05-2022 Hospital Discharge instructions Patient Education [...] 06/30/2013 Document Revised: 03/03/2019 Document Reviewed: 03/03/2019 [employer] Patient Education 2020 [employer]. 05/01/2022 08:20:59 Calorie Counting for Weight Loss [...] 07/14/2006 Document Revised: 04/02/2019 Document Reviewed: 06/13/2017 [employer] Patient Education [employer]. Follow Up Care 12/12/2021 12:13:24 With:Lorne GONZALEZ, TEDDY Gonzalez, U[facility] Address: When:Within 1 Year(s) [facility] 05-18-2022 Hospital Discharge instructions Patient Education 12/12/2021 [...] Follow these instructions at home: Medicines Take gdbs-xws-gopcwcw and prescription medicines only as told by [...] or the blood stops without treatment. Take udit-lzd-xpxbrsr and prescription medicines only as told by your health care provider. Drink enough fluid to keep your urine clear or pale yellow. This information is not intended to replace advice given to you by your health care provider. Make sure you discuss any questions you have with your health care provider. Document Released: 07/14/2006 Document Revised: 12/08/2019 Document Reviewed: 08/16/2017 [employer] Patient Education 2020 [employer] Follow Up Care 06/06/2021 10:30:38 With:Ramila Pradhan MD, CLIFL, URO Address: When:3 months [facility] evaluation + Plan note Future Appointments Appointment Date:12/21/2021 07:30:00 AM Scheduled Provider: [facility] App[facility] Type:PT Pelvic Floor/UI Eval (FT) Appointment Date:05/01/2022 08:00:00 AM Scheduled Provider:Ramila Pradhan MD Location:[facility] Appointment Type:URO Office Visit [facility] evaluation + Plan note Future Appointments Appointment Date:12/21/2021 07:30:00 AM Scheduled Provider: [facility] [place] Appointment Type:PT Pelvic Floor/UI Eval (FT) Appointment Date:05/01/2022 08:00:00 AM Scheduled Provider:Ramila Pradhan MD Location:[facility] Appointment Type:URO Office Visit Diagnostic Tests Pending * [facility]ments Appointment Date:02/06/2022 [...] Date:05/01/2022 08:00:00 AM Scheduled Provider:Ramila Pradhan MD Location:[facility] Appointment Type:URO Office Visit [facility] evaluation + Plan note Future Appointments Appointment Date:05/07/2023 08:00:00 AM Scheduled Provider:Ramila Pradhan MD Location:[facility] Appointment Type:URO Office Visit [facility] evalxyentd [facility]No [facility] Other Evaluation noteNo assessment information available [facility] [employer] Work Phone: Evaluation note* Diagnosis Onset Date Resolution Status Rectal bleeding acute Trapezius muscle strain none active Neck pain noneactive [facility] [employer] [place] Work Phone: History general Narrative - Reported* [...] History COLONOSCOPY Hospitalization History SEE SURGICAL HX [facility] [employer] Other Hospital course Narrative No data available for this section [facility] Hospital Discharge instructions No data available for this section [facility]* Referral to General Surgery Location: None Selected [facility] [employer] Work Phone: Progress note No data available for this section [facility] Summary Purpose Family History No Family History Records Found No data available for this section No Family History Records FoundNo Family History Records FoundNo Family History Records Found Advance Directives No Advanced Directives Records Found Advance Directive Response Recorded Date/ Time Advance Directives No November 10 3:40pm Chief Complaint and Reason for Visit [...] DATE CREATED AUTHOR AUTHOR'S ORGANIZ ATION 05/13/2023 [facility] DATE CREATED AUTHOR AUTHOR'S ORGANIZ ATION 12/07/2023 [facility] DATE CREATED AUTHOR AUTHOR'S ORGANIZ ATION 01/28/2024 [facility] EPIC Goals (unrecognized section and [...] BE BASED ON THE PRIMARY CLINICAL RECORDS. [facility] provides no warranty or guarantee of the accuracy or completeness of information in this document.
== END 2024-02-02 07:56 | disposition home or self-care (01) ==
LOC: MAMMO 07:55
PROVIDERS: PCP Internal Medicine; Visit Provider Obstetrics & Gynecology
DX: Z12.31 Encounter for screening mammogram for malignant neoplasm of breast (principal); Z80.3 Family history of malignant neoplasm of breast; Z80.1 Family history of malignant neoplasm of trachea, bronchus and lung
CPT/HCPCS: 77063; 77067

== ENCOUNTER 2024-03-10 16:08 | Outpatient (OUT) | payer MEDICARE, OTHER, SELFPAY ==
--- NOTE | 2024-03-10 16:32 | US_ITS ---
The [address] [address] Patient Name: JB ESTRELLA MRN: [id number] date: 1950 Sex: F Assigned Patient Location: US Current Patient Location: US Accession/Order Number: [id number] Exam Date: 03/10/2024 16:49 Report Date: 03/10/2024 18:29 At the request of: TAHIR WHEELER Procedure: US venous doppler LE LT EXAM: US venous doppler LE LT HISTORY: Swelling of left lower extremity, Chronic venous insufficien COMPARISON: None. TECHNIQUE: Evaluation of the deep veins of the left lower extremity was performed utilizing B-mode, color flow and spectral analysis. FINDINGS: Noncompressible short segment of proximal gastrocnemius vein, representing deep vein thrombosis. The visualized vessels comprising the deep venous systems from the common femoral vein through the remaining calf veins demonstrate appropriate compressibility, spontaneous color Doppler flow, and augmentation of flow on spectral Doppler with distal compression. Additional findings: None. IMPRESSION Noncompressible short segment of proximal gastrocnemius vein, representing deep vein thrombosis. Electronically authenticated by: HECTOR BYNUM Date: 03/10/2024 18:29
== END 2024-03-10 16:09 | disposition home or self-care (01) ==
LOC: US 16:09
PROVIDERS: PCP Internal Medicine; Visit Provider Internal Medicine
DX: M79.89 Other specified soft tissue disorders (principal); I87.2 Venous insufficiency (chronic) (peripheral)
CPT/HCPCS: 93971

== ENCOUNTER 2024-03-15 08:49 | Outpatient (OUT) | payer MEDICARE, OTHER, SELFPAY ==
--- NOTE | 2024-03-15 08:51 | VEIN_ITS ---
Patient Name: JB ESTRELLA MR#: [id number] : 1950 Exam Date: 03/15/2024 Ordering Doctor: DR GONZALO JOSEPH M.D. RADIOLOGY REPORT PROCEDURE: [facility] - OFFICE VISIT FOLLOW UP COMPARISON: [facility], 12/26/2022. PROGRESS NOTES: The patient reports presenting to her primary care physician, Dr. Karl vizcarra, with a subsequent ultrasound demonstrating deep vein thrombus. The patient was put on Eliquis. The patient does complain left leg swelling. Physical exam demonstrates no erythema warmth or swelling. No active ulceration. Scattered spider veins are noted. Review of the ultrasound performed the same day demonstrates a short 1.2 cm segment of deep vein thrombus in the gastrocnemius vein, this thrombus is approximately 10-15 cm from the popliteal vein. This could be related to patient's marked decrease in exercise related to her bilateral knee pain. These findings will be communicated to the primary care physician. VEIN/[facility] EST LMTD IMPRESSION: 1. 1.2 cm segment of deep vein thrombus in the mid gastrocnemius vein, far removed from a popliteal vein. PLAN: Continue Eliquis as prescribed by Dr. Karl vizcarra. Follow-up ultrasound in 1 month Nurse notes, history and physical were reviewed and confirmed, see attached forms. The nurse was present throughout the physical exam and consultation Dictated by: Gonzalo Joseph MD on 03/15/2024 at 09:37 Approved by: Gonzalo Joseph MD on 03/15/2024 at 09:40
--- NOTE | 2024-03-15 08:51 | VEIN_ITS ---
Patient Name: JB ESTRELLA MR#: [id number] : 1950 Exam Date: 03/15/2024 Ordering Doctor: DR GONZALO JOSEPH M.D. RADIOLOGY REPORT PROCEDURE: VC EXT VENOUS LT LIMITED COMPARISON: VC EXT VENOUS LT LIMITED, 12/26/2022. INDICATIONS: Phlebitis of superficial veins of lt lower extremity I80.02 TECHNIQUE: Lower extremity craven scale and Duplex Doppler evaluation of the deep venous system from the inguinal ligament through the calf veins. FINDINGS: REGION: Left lower extremity. THROMBI: Positive for DVT. Partial compressibility visualized in mid gastroc vein measuring 1.2cm in length COMPRESSIBILITY: Partial compressibility of segments. FLOW: Normal waveform and antegrade flow between 5 and 20 cm/s. CONCLUSION: Short segment of deep vein thrombus in the mid gastrocnemius vein, approximately 10-15 cm from the popliteal vein Dictated by: Gonzalo Joseph MD on 03/15/2024 at 09:25 Approved by: Gonzalo Joseph MD on 03/15/2024 at 09:37
--- OUTSIDE RECORDS SUMMARY | 2024-03-15 09:04 | XMS_ITS | CCD ---
Author Organization [facility] Care Team Providers Care Carbon Lamp Cleaner Name Role Phone ALDEN JAMISON Primary Care Physician Alden Jamison DOMINICK, DR REINA Delgado Attending Unavailable WEST, DR REINA Delgado Admnilda Unavailable BALL, DR HARO Primary Care Unavailable WEST, DR REINA Delgado Consulting Unavailable ZIEBER, DR AASHISH Zaldivar Consulting Unavailable BALL, DR [...] Unavailable ZIEBER, DR AASHISH Zaldivar Consulting Unavailable MISC, DR [...] Unavailable WEST, DR REINA Delgado Attending Unavailable DOMINICK, DR REINA Delgado Admitting Unavailable DOMINICK, DR REINA Delgado Consulting Unavailable SHAHEEN, DR HARO Primary Care Unavailable Ramila Pradhan Attending Unavailable Ramila Pradhan Attending Unavailable RADHA GIBBS Attending Unavailable SHAHEEN, ALDEN Oneal Referring Unavailable ALDEN JAMISON Primary Care Unavailable KAITY, ADRIANA Reyes Attending Unavailable KAITY, ADRIANA Reyes Referring Unavailable DEANA LOMAS Attending Unavailable MCDONALD, ADRIANA Reyes Attending Unavailable MCDONALD, ADRIANA Reyes Attending Unavailable MCDONALD, ADRIANA Reyes Attending Unavailable GAIL NAVA Attending Unavailable CLAY TORRES Attending Unavailable MCDONALD, ADRIANA Reyes Attending Unavailable ABEBE, DEANA Germain Attending Unavailable Allergies Allergy Classification Reported Allergen(s) Allergy Type Date of Onset Reaction(s) Facility (6 sources) Latex; Translations: [latex] Drug allergy 11-13-2015 Eruption of skin (disorder) [facility] [place] Medications Current Medications Medication Drug Class(es) Dates Sig (Normalized) Sig (Original) aspirin 325 mg delayed release oral tablet (14 sources) Platelet Aggregation Inhibitor, Nonsteroidal Anti-inflammatory Drug [...] Orally Once a day Active bacillus coagulans [id number] unt / inulin 250 mg oral capsule [...] 0, Prophylaxis Start Date: 03/20/20 Status: Ordered Nature's Bounty Red Krill Oil [...] 0, Prophylaxis Start Date: 03/20/20 Status: Ordered predniSONE 20 mg oral tablet (1 source) Start: 11-13-2023 Prednisone Act lou 20 MG PO As Directed 12 November 13, 2023 12:00am 1 tab tid w/ food x 2 days, then bid w/ food x 2 days, then qd w/ food x 2 days Probiotic Formula (Bacillus Coagulans) oral capsule (2 sources) Start: 03-20-2020 take 1 capsule by mouth once daily Probiotic Formula (Bacillus Coagulans) oral capsule 1 cap(s), Oral, Daily, Refill(s) 0, Prophylaxis Start Date: 03/20/20 Status: Ordered tiZANidine 2 mg oral tablet (10 sources) Central alpha-2 Adrenergic Agonist Start: 11-11-2023 [...] Drug Class(es) Dates Sig (Normalized) Sig (Original) meloxicam 15 mg oral tablet (10 sources) Nonsteroidal Anti-inflammatory Drug Start: 11-11-2023 End: 11-13-2023 take 15 mg by mouth once daily Meloxicam Discontinued 15 MG PO Daily November 11, 2023 12:00am November 13, 2023 12:22pm Start: 12-30-2022 meloxicam 15 m g Tab Refills(s) 0 Start Date: 05/07/23 Status: Ordered Vitamin D 1000 intl units Tab (4 [...] stone] 05-07-2023 Episodic Deficiency and other anemia (8 sources) Anemia; Translations: [Anemia, unspecified] 06-06-2021 Episodic Deficiency and other anemia (8 sources) Microcytic hypochromic anemia; Translations: [Iron deficiency anemia, unspecified] Episodic Diseases of mouth; excluding dental (1 source) Dry mouth, unspecified Episodic Gastrointestinal hemorrhage (13 sources) Rectal hemorrhage; Translations: [Hemorrhage of anus and rectum] Onset: 4 11-11-2023 Episodic Genitourinary symptoms and ill-defined conditions (17 sources) Mixed incontinence; Translations: [Incontinence] Onset: 2 Chronic Genitourinary symptoms and ill-defined conditions (9 sources) Nocturia; Translations: [Nocturia] Onset: 2 Episodic Intracranial injury (1 source) Concussion without loss of consciousness, initial encounter Episodic Osteoarthritis (15 sources) Arthritis; Translations: [Arthritis of left knee] 06-06-2021 Chronic Other bone disease and musculoskeletal deformities (8 sources) Other specified disorders of bone density and structure, other site; Translations: [Osteopenia of lumbar spine] Episodic Other bone disease and musculoskeletal deformities (3 sources) Osteopenia; Translations: [Other specified disorders of bone density and structure, other site] 11-11-2023 Episodic Other connective tissue disease (1 source) Other specified soft tissue disorders; Translations: [Swelling of limb] 03-10-2024 Episodic Other diseases of kidney and ureters (1 source) Urinary tract obstruction; Translations: [Hydronephrosis with renal and ureteral calculous obstruction] Onset: 3 Episodic Other diseases of veins and lymphatics (11 sources) Peripheral venous insufficiency; Translations: [Venous insufficiency (chronic) (peripheral)] 11-11-2023 Episodic Other diseases of veins and lymphatics (1 source) Venous insufficiency (chronic) (peripheral); Translations: [Venous (peripheral) insufficiency, unspecified] 03-10-2024 Episodic Other nutritional; endocrine; and metabolic disorders [...] Spondylosis; intervertebral disc disorders; other back problems (10 sources) Cervical spondylosis; Translations: [Spondylosis without myelopathy or radiculopathy, cervical region] Chronic Spondylosis; intervertebral disc disorders; other back problems (2 sources) Torticollis; Translations: [Cervicalgia] Episodic Sprains and strains (2 sources) Strain of muscle, fascia and tendon at neck level, initial encounter; Translations: [Strain of other muscles, fascia and tendons at shoulder and upper arm level, unspecified arm, initial encounter] Episodic Substance-related disorders (11 sources) Tobacco user; Translations: [Nicotine dependence, cigarettes, [...] Basophils (Bld) [#/Vol] 0.0 10 3/uL 0.0-0.1 [facility] Basophils/100 WBC Auto (Bld) on 10-01-2023 Basophils/100 WBC (Bld) 0.5 % 0.2-2.0 [facility] Eosinophils/100 WBC Auto (Bl d)on 10-01-2023 Eosinophils/100 WBC (Bld) 4.6 % 0.9-7.0 [facility] Erythrocyte distribution wid th Auto (RBC) [Ratio]on 10-01-2023 Erythrocyte distribution width (RBC) [Ratio] 16.2 % 11.0-15.0 [facility] Hematocrit Auto (Bld) [Volum e fraction]on 10-01-2023 Hematocrit (Bld) [Volume fraction] 38.0 % 36.0-48.0 [facility] Hemoglobin [Mass/volume] in Bloodon 10-01-2023 Hemoglobin (Bld) [Mass/Vol] 11.3 g/dL 12.0-16.0 [facility] Iron binding capacity [Mass/ volume] in Serum or Plasmaon 10-01-2023 Iron binding capacity [Mass/Vol] 257.0 ug/dL 250.0-450.0 [facility] Iron saturation [Mass Fracti on] in Serum or Plasmaon 10-01-2023 Iron saturation [Mass fraction] 39.7 % [facility] Laboratory - Chemistry and C hemistry - challengeon 10-01-2023 Cobalamin (Vitamin B12) [Mass/Vol] 405.0 pg/mL 193.0-986.0 [facility] Ferritin [Mass/Vol] 345.0 ng/mL 8.0-252.0 [facility] Iron [Mass/Vol] 102.0 ug/dL 50.0-170.0 [facility] Laboratory - Hematology and Cell countson 10-01-2023 Immature granulocytes/100 WBC (Bld) 0.2 % 0.0-0.5 [facility] Leukocytes [#/volume] correc rock for nucleated erythrocytes in Blood by Automated counon 10-01-2023 WBC corrected for nucl RBC Auto (Bld) [#/Vol] 6.1 10 3/uL 4.0-11.0 [facility] Lymphocytes Auto (Bld) [#/Vo l]on 10-01-2023 Lymphocytes (Bld) [#/Vol] 1.7 10 3/uL 1.2-3.8 [facility] Lymphocytes/100 WBC Auto (Bl d)on 10-01-2023 Lymphocytes/100 WBC (Bld) 27.9 % 20.5-60.0 [facility] MCH Auto (RBC) [Entitic mass ]on 10-01-2023 MCH (RBC) [Entitic mass] 19.9 pg 26.7-34.0 [facility] MCHC Auto (RBC) [Mass/Vol]on 10-01-2023 MCHC (RBC) [Mass/Vol] 29.7 g/dL 29.9-35.2 [facility] MCV Auto (RBC) [Entitic vol] on 10-01-2023 MCV (RBC) [Entitic vol] 66.9 fL 81.0-99.0 [facility] Monocytes Auto (Bld) [#/Vol] on 10-01-2023 Monocytes (Bld) [#/Vol] 0.5 10 3/uL 0.3-0.8 [facility] Monocytes/100 WBC Auto (Bld) on 10-01-2023 Monocytes/100 WBC (Bld) 7.9 % 1.7-12.0 [facility] Neutrophils Auto (Bld) [#/Vo l]on 10-01-2023 Neutrophils (Bld) [#/Vol] 3.6 10 3/uL 1.4-6.5 [facility] Neutrophils/100 WBC Auto (Bl d)on 10-01-2023 Neutrophils/100 WBC (Bld) 58.9 % 43.0-75.0 [facility] No Panel Informationon 09-30 Eosinophils # (Auto) 0.3 10 3/uL 0.0-0.7 [facility] Folate 28.20 ng/mL 8.60-58.90 [facility] Immature Granulocyte # (Auto) 0.01 10 3/uL 0.00-0.03 [facility] Platelets Auto (Bld) [#/Vol] on 10-01-2023 Platelets (Bld) [#/Vol] 232 10 3/uL 150-450 [facility] RBC Auto (Bld) [#/Vol]on RBC (Bld) [#/Vol] 5.68 10 6/uL 4.20-5.40 [facility] RAD - CT Reporton 05-12-2023 RAD - CT Report [id number] #1.00TIFF [facility] Reminderson 05-12-2023 Reminders - From: Angela Henriquez To: EU - Recalls Lorne; Sent: 05/12/2023 11:22:11 EDT Show up: 03/28/2024 11:22:00 EDT Subject: KUB/JAK Reminder/Recall to be scheduled prior to patients 1 yr follow up 05/12/24 -patient uses [facility] Normal [facility] Ambulatory Visit Summaryon 1 Ambulatory Visit Summary JB LERMA Amy :1950 Visit Date:05/07/2023 Ambulatory Visit Instructions Your Diagnosis Mixed incontinence Nocturia Asymptomatic microscopic hematuria Ureteral stone with hydronephrosis Tests Performed Urnls Dip Stick Auto w/o Microscopy POC 34[address] CT Abdomen/Pelvis w/o Contrast -- Results Pending -- Please visit your patient portal for your results or contact your primary care physician. Your Care Team Attending Physician - Lorne GONZALEZ, Ramila Pascal Primary Care Physician - SHAHEEN BORGES, ALDEN This Is Your Medications List Contact prescribing [...] Urnls Dip Stick Auto w/o Microscopy POC 67065 (05/07/2023) Bilirubin Urine Dipstick - Negative Blood Urine Dipstick - Negative Glucose Urine Dipstick - Negative Ketones Urine Dipstick - Negative Leukocytes Urine Dipstick - Negative Nitrite Urine Dipstick - Negative Protein Urine Dipstick - Trace Specific [place] Urine Dipstick - 1.025 Urine Appearance Urine [...] people ne (more content not included)... Normal [facility] ED Note-Physicianon 05-07-20 ED Note-Physician [id number] 9#1.00TIFF [facility] ED Note-Physician [id number] 4#1.00TIFF [facility] Lab Reportson 05-07-2023 Lab Reports [id number] 1#1.00TIFF [facility] Patient Educationon 05-07-20 Patient Education Nephrology Dietary [...] Spinach (cooked), rhubarb, beets, sweet potatoes, and Fijian chard. ? Peanuts. ? Potato chips, namibian fries, and baked potatoes with skin on. ? Nuts and nut products. ? Chocolate. ? If you regularly take a diuretic medicine, make sure to eat at least 1 or 2 servings of fruits or vegetables that are high in potassium each day. These include: ? Avocado. ? Banana. ? [place], prune, carrot, or tomato juice. ? Baked [...] fish oil, or vitamin B6. ? Take jkxv-tgd-twoisoa and prescription medicines only as told by your health care provider. These include supplements. What foods should I limit? Limit your in (more content not included)... Normal [facility] RAD - CT Reporton 05-07-2023 RAD - CT Report [id number] #1.00TIFF Normal [facility] Screenson 05-07-2023 Screens [id number] #1.00TIFF Normal [facility] Urology Office/Clinic Noteon 05-07-2023 Urology Office/Clinic Note Chief Complaint 1yr HPI Staff 1yr DX: Mixed Incontinence, Nocturia & Microscopic Hematuria *No Urology Meds Pt returned from [employer] last month. Since then has gone to [facility] x2 occasions due to Kidney Stones [...] hematuria (R31.21: Asymptomatic microscopic hematuria) UA at [facility] on 03/30/23 showed large blood, moderate bacteria, and trace leuks. UA at [facility] on 04/15/23 showed large blood and trace leuks. UA today is negative for blood and infection. Pt denies any visible blood in her urine. -Will continue to monitor. 4. Ureteral stone with hydronephrosis (N13.2: Hydronephrosis with renal and ureteral calculous obstruction) Pt returned from [employer] last month. Since then has gone to [facility] x2 occasions due to COVID and [...] is placed, (more content not included)... Normal [facility] Comment on above: Result Comment: Elec tronically Signed By: Ramila Pradhan MD\.br\Date and Time Signed: 05/07/23 09:20 EDT\.br\Electronically Co-Signed By: Jessica Barr.br\Date and Time Co-Signed: 05/07/23 08:54 EDT VC INJ FOAM SCLERO W US MLTI on 12-05-2022 VC INJ FOAM SCLERO W US MLTI Patient: JB LERMA Exam Date: 12/05/2022 : 1950 Gender:F Ordering : DR REINA TAN M.D. Admission #: [id number] Family : Order #: [id number] CLICK HERE TO VIEW EXAM RADIOLOGY REPORT [...] Aashish Gil M.D. on 12/05/2022 at 09:41 [facility] VC CONSULT FOLLOWUPon 2022 VC CONSULT FOLLOWUP Patient: DELORES JB Clifford Exam Date: 11/28/2022 : 1950 Gender:F Ordering : DR REINA TAN M.D. Admission #: [id number] Family : Order #: [id number] CLICK HERE TO VIEW EXAM RADIOLOGY REPORT [...] Tan MD on 11/28/2022 at 08:38 Normal [facility] VC EXT VENOUS RT LIMITEDon 0 11-28-2022 VC EXT VENOUS RT LIMITED Patient: JB LERMA Exam Date: 11/28/2022 : 1950 Gender:F Ordering : DR REINA TAN M.D. Admission #: [id number] Family : Order #: [id number] CLICK HERE TO VIEW EXAM RADIOLOGY REPORT [...] Tan MD on 11/28/2022 at 08:17 Normal [facility] VC INJ FOAM SCLERO W US MLTI on 11-25-2022 VC INJ FOAM SCLERO W US MLTI Patient: JB LERMA Exam Date: 11/25/2022 : 1950 Gender:F Ordering : DR REINA TAN M.D. Admission #: [id number] Family : Order #: [id number] CLICK HERE TO VIEW EXAM RADIOLOGY REPORT [...] Gil M.D. on 11/25/2022 at 12:03 Normal [facility] VC CONSULT FOLLOWUPon 2022 VC CONSULT FOLLOWUP Patient: JB LERMA Exam Date: 11/13/2022 : 1950 Gender:F Ordering : DR REINA TAN M.D. Admission #: [id number] Family : Order #: [id number] CLICK HERE TO VIEW EXAM RADIOLOGY REPORT [...] Aashish Gil M.D. on 11/13/2022 at 09:54 [facility] VC EXT VENOUS LT LIMITEDon 0 11-13-2022 VC EXT VENOUS LT LIMITED Patient: JB LERMA Exam Date: 11/13/2022 : 1950 Gender:F Ordering : DR REINA TAN M.D. Admission #: [id number] Family : Order #: [id number] CLICK HERE TO VIEW EXAM RADIOLOGY REPORT [...] Gil M.D. on 11/13/2022 at 09:52 Normal [facility] VC ENDOVENOUS ABL 1ST V LTon 11-06-2022 VC ENDOVENOUS ABL 1ST V LT Patient: JB LERMA Exam Date: 11/06/2022 : 1950 Gender:F Ordering : DR REINA TAN M.D. Admission #: [id number] Family : Order #: [id number] CLICK HERE TO VIEW EXAM RADIOLOGY REPORT PROCEDURE: VEIN CENTER ENDOVENOUS ABLATION FIRST VEIN LEFT COMPARISON: VC VENOUS REFLUX TITA LMT, 02/28/2022. INDICATIONS: Pain co-occurrent and due to varicose veins of bilateral legs I83.813 OPERATIVE REPORT: The risks and benefits of the procedure had been previously discussed, and were rediscussed at length. Informed written consent was obtained by me and Efe vaz. Time out procedure was [...] Gil M.D. on 11/06/2022 at 14:02 Normal [facility] VC CONSULT FOLLOWUPon 2022 VC CONSULT FOLLOWUP Patient: JB LERMA Exam Date: 10/23/2022 : 1950 Gender:F Ordering : DR REINA TAN M.D. Admission #: [id number] Family : Order #: [id number] CLICK HERE TO VIEW EXAM RADIOLOGY REPORT [...] Tan MD on 10/23/2022 at 13:32 Normal [facility] VC EXT VENOUS RT LIMITEDon 0 10-23-2022 VC EXT VENOUS RT LIMITED Patient: JB LERMA Exam Date: 10/23/2022 : 1950 Gender:F Ordering : DR REINA TAN M.D. Admission #: [id number] Family : Order #: [id number] CLICK HERE TO VIEW EXAM RADIOLOGY REPORT [...] Tan MD on 10/23/2022 at 10:54 Normal [facility] VC ENDOVENOUS ABL 1ST V RTon 10-18-2022 VC ENDOVENOUS ABL 1ST V RT Patient: JB LERMA Exam Date: 10/18/2022 : 1950 Gender:F Ordering : DR REINA TAN M.D. Admission #: [id number] Family : Order #: [id number] CLICK HERE TO VIEW EXAM RADIOLOGY REPORT PROCEDURE: VEIN CENTER ENDOVENOUS ABLATION FIRST VEIN RIGHT GREAT SAPHENOUS COMPARISON: None. INDICATIONS: Pain co-occurrent and due to varicose veins of bilateral legs I83.813 OPERATIVE REPORT: The risks and benefits of the procedure had been previously discussed, and were rediscussed at length. Informed written consent was obtained by and Efe Hoskins assisted. Time out procedure [...] MD on 10/18/2022 at 10:20 Normal [facility] CBC AUTO DIFFon 05-28-2022 BASO # 0.0 103/ul Normal 0.0-0.1 [facility] Comment on above: Performed By: #### D ATCBC ####[facility] [address] [place] [id number]. Ольга Dacosta Basophils/100 WBC (Bld) 0.7 % Normal 0.2-2.0 [facility] Comment on above: Performed By: #### D ATCBC ####[facility] [address] [place], [place] [address]Dr. Ольга Dacosta EO # 0.3 103/ul Normal 0.0-0.7 [facility] Comment on above: Performed By: #### D ATCBC ####[facility] [address] [place], [place] [address]Dr. Ольга Dacosta Eosinophils/100 WBC (Bld) 6.1 % Normal 0.9-7.0 [facility] Comment on above: Performed By: #### D ATCBC ####[facility] [address] [place], [place] [address]Dr. Ольга Dacosta Erythrocyte distribution width (RBC) [Ratio] 16.3 % Critically high 11.0-15.0 [facility] Comment on above: Performed By: #### D ATCBC ####[facility] [address] [place], [place] [address]Dr. Ольга Dacosta Hematocrit (Bld) [Volume fraction] 39.5 % Normal 36.0-48.0 [facility] Comment on above: Performed By: #### D ATCBC ####[facility] [address] [place], [place] [address]Dr. Ольга Dacosta Hemoglobin (Bld) [Mass/Vol] 12.2 g/dL Normal 12.0-16.0 [facility] Comment on above: Performed By: #### D ATCBC ####[facility] [address] [place], [place] [address]Dr. Ольга Dacosta IG # 0.01 10e3/ul Normal 0.00-0.03 [facility] Comment on above: Performed By: #### D ATCBC ####[facility] [address] [place], [place] [address]Dr. Ольга Dacosta IG % 0.2 % Normal 0.0-0.5 [facility] Comment on above: Performed By: #### D ATCBC ####[facility] [address] [place] [address]Dr. Ольга Dacosta LYMPH # 1.9 103/ul Normal 1.2-3.8 [facility] Comment on above: Performed By: #### D ATCBC ####[facility] [address] [place] [address]Dr. Ольга Dacosta Lymphocytes/100 WBC (Bld) 34.8 % Normal 20.5-60.0 [facility] Comment on above: Performed By: #### D ATCBC ####[facility] [address] [place] [address]Dr. Ольга Praneeth MCH (RBC) [Entitic mass] 20.4 pg Critically low 26.7-34.0 [facility] Comment on above: Performed By: #### D ATCBC ####[facility] [address] [place], [place] [address]Dr. Ольга Praneeth MCHC (RBC) [Mass/Vol] 30.9 g/dL Normal 29.9-35.2 [facility] Comment on above: Performed By: #### D ATCBC ####[facility] [address] [place], [place] [address]Dr. Nerissakathy Dacosta MCV (RBC) [Entitic vol] 66.2 fL Critically low 81.0-99.0 [facility] Comment on above: Performed By: #### D ATCBC ####[facility] [address] [place], [place] [address]Dr. Ольга Praneeth MONO # 0.5 103/ul Normal 0.3-0.8 [facility] Comment on above: Performed By: #### D ATCBC ####[facility] [address] [place], [place] [address]Dr. Nerissakathy Dacosta Monocytes/100 WBC (Bld) 9.2 % Normal 1.7-12.0 [facility] Comment on above: Performed By: #### D ATCBC ####[facility] [address] [place], [place] [address]Dr. Ольга Dacosta NEUT # 2.7 103/ul Normal 1.4-6.5 [facility] Comment on above: Performed By: #### D ATCBC ####[facility] [address] [place] [id number]. Ольга Dacosta Neutrophils/100 WBC (Bld) 49.0 % Normal 43.0-75.0 [facility] Comment on above: Performed By: #### D ATCBC ####[facility] [address] [place] [address]Dr. Ольга Dacosta Platelet mean volume (Bld) [Entitic vol] 11.4 fL Normal 9.5-13.5 [facility] Comment on above: Performed By: #### D ATCBC ####[facility] [address] [place] [address]Dr. Ольга Dacosta PLT 243 103/ul Normal 150-450 [facility] Comment on above: Performed By: #### D ATCBC ####[facility] [address] [place] [id number]. Ольга Dacosta RBC 5.97 106/ul Critically high 4.20-5.40 [facility] Comment on above: Performed By: #### D ATCBC ####[facility] [address] [place] [address]Dr. Ольга Dacosta WBC 5.5 103/ul Normal 4.0-11.0 [facility] Comment on above: Performed By: #### D ATCBC ####[facility] [address] [place] [address]Dr. Ольга Dacosta JERMAN - TSHon 05-28-2022 TSH 1.495 uIU/mL Normal 0.358-3.740 [facility] Comment on above: Performed By: #### D ATTSH, DATBMP ####[facility] [address] [place] [address]Dr. Ольга Dacosta TSH RANGE SEE BELOW Normal [facility] Comment on above: Result Comment: <0.3 4 UIU/ml HYPERTHYROID 0.34-5.60 UIU/ml EUTHYROID >5.60 UIU/ml HYPOTHYROID Performed By: #### D TACOS DATBMP ####[facility] [address] [place] [address]Dr. Ольга Dacosta JERMAN- BMP WITH LIPIDon 2021 Anion gap [Moles/Vol] 10.3 mmol/L Normal [facility] Comment on above: Performed By: #### D TACOS DATBMP ####[facility] [address] [place] [address]Dr. Ольга Dacosta Calcium [Mass/Vol] 9.1 mg/dL Normal 8.5-10.1 [facility] Comment on above: Performed By: #### Elke BALDERRAMA DATBMP ####[facility] [address] [place], [place] [address]Dr. Ольга Dacosta Chloride [Moles/Vol] 104 mmol/L Normal 98-107 [facility] Comment on above: Performed By: #### Elke BALDERRAMA DATBMP ####[facility] [address] [place], [place] [address]Dr. Ольга Dacosta Cholesterol [Mass/Vol] 162 mg/dL Normal <=200 [facility] Comment on above: Performed By: #### Elke BALDERRAMA DATBMP ####[facility] [address] [place], [place] [address]Dr. Ольга Dacosta Cholesterol in HDL [Mass/Vol] 59 mg/dL Normal 40-60 [facility] Comment on above: Performed By: #### Elke BALDERRAMA DATBMP ####[facility] [address] [place] [address]Dr. Ольга Dacosta Cholesterol in LDL [Mass/Vol] 88.0 mg/dL Normal [facility] Comment on above: Performed By: #### Elke BALDERRAMA DATBMP ####[facility] [address] [place], [place] [address]Dr. Ольга Dacosta CO2 [Moles/Vol] 29.1 mmol/L Normal 21.0-32.0 [facility] Comment on above: Performed By: #### Elke BALDERRAMA DATBMP ####[facility] [address] [place] [id number]. Ольга Dacosta Creatinine [Mass/Vol] 0.59 mg/dL Normal 0.55-1.02 [facility] Comment on above: Performed By: #### Elke BALDERRAMA DATBMP ####[facility] [address] [place], [place] [address]Yi. Ольга Dacosta EGFR-AF [place] >60 Normal >=60 [facility] Comment on above: Performed By: #### Elke BALDERRAMA DATBMP ####[facility] [address] [place] [id number]. Ольга Dacosta EGFR-NON AF [place] >60 Normal >=60 [facility] Comment on above: Performed By: #### Elke BALDERRAMA DATBMP ####[facility] [address] [place] [id number]. Ольга Dacosta Glucose [Mass/Vol] 100 mg/dL Normal 74-106 [facility] Comment on above: Performed By: #### Elke BALDERRAMA DATBMP ####[facility] [id number] [place] [id number]. Nerissakathy Dacosta HDL NORMAL > or = 60 mg/dl - LOW CARDIOVASCULAR RISK <40 mg/dl - HIGH CARDIOVASCULAR RISK Normal [facility] Comment on above: Performed By: #### Elke BALDERRAMA DATBMP ####[facility] [id number] [place] [id number]. Ольга Dacosta LDL CALC NORMAL SEE BELOW Normal [facility] Comment on above: Result Comment: <100 mg/dl OPTIMAL 100 - 129 mg/dl NEAR OR ABOVE OPTIMAL 130 - 159 mg/dl BORDERLINE HIGH 160 - 189 mg/dl HIGH >190 mg/dl VERY HIGH Performed By: #### Elke BALDERRAMA DATBMP ####[facility] [address] [place] [id number]. Ольга Dacosta Potassium [Moles/Vol] 4.4 mmol/L Normal 3.5-5.1 [facility] Comment on above: Performed By: #### Elke BALDERRAMA DATBMP ####[facility] [id number] [place] [id number]. Ольга Dacosta Sodium [Moles/Vol] 139 mmol/L Normal 136-145 [facility] Comment on above: Performed By: #### D TACOS DATBMP ####[facility] [address] [place] [address]Dr. Ольга Dacosta Triglyceride [Mass/Vol] 75 mg/dL Normal <=150 [facility] Comment on above: Performed By: #### D TACOS DATBMP ####[facility] [address] [place] [id number]. Ольга Praneeth Urea nitrogen [Mass/Vol] 25.0 mg/dL Critically high 7.0-18.0 [facility] Comment on above: Performed By: #### Elke BALDERRAMA DATBMP ####[facility] [address] [place] [address]Dr. Ольга Praneeth Urea nitrogen/Creatinine [Mass ratio] 42.4 mg/mg Normal [facility] Comment on above: Performed By: #### Elke BALDERRAMA DATBMP ####[facility] [address] [place] [address]Dr. Ольга Dacosta VLDL CALC 15.0 mg/dL Normal [facility] Comment on above: Performed By: #### Elke BALDERRAMA DATBMP ####[facility] [address] [place] [address]Dr. Ольга Dacosta VC COMP CONSULTATIONon 02-28 VC COMP CONSULTATION Patient: JB LERMA Exam Date: 02/28/2022 : 1950 Gender:F Ordering : DR REINA TAN M.D. Admission #: [id number] Family : Order #: [id number] CLICK HERE TO VIEW EXAM RADIOLOGY REPORT [...] arterial disease 5. CEAP: C3, EC, AP, [place] PLAN: 1. Continued use of compression stockings [...] M.D. on 02/28/2022 at 13:38 Normal [facility] VC VENOUS REFLUX TITA LMTon 0 02-28-2022 VC VENOUS REFLUX TITA LMT Patient: DELORES JB ReyesRafia Exam Date: 02/28/2022 : 1950 Gender:F Ordering : DR REINA TAN M.D. Admission #: [id number] Family : Order #: [id number] CLICK HERE TO VIEW EXAM RADIOLOGY REPORT [...] chronic thrombus visualized Compressibility: Normal Flow: Normal Wound/Ostomy Clinical Nurse Specialist: Dist/med calf 3.2mm with 0s reflux. Mid/med [...] M.D. on 02/28/2022 at 09:48 Normal [facility] MAMM SCREEN 3D TITA CADon 01-21-2022 MAMM SCREEN 3D TITA CAD Patient: JB LERMA Exam Date: 01/21/2022 : 1950 Gender:F Ordering : DR ALDEN JAMISON D.O. Admission #: [id number] Family : Order #: [id number] CLICK HERE TO VIEW EXAM RADIOLOGY REPORT PROCEDURE: MAMMOGRAM SCREENING 3D BILATERAL CAD COMPARISON: MG MAMM SCREEN 3D TITA CAD, 01/17/2021. MAMM SCREEN TITA W CAD, 01/12/2020. INDICATIONS: Screening mammography Calculator Name NCI Breast Cancer Risk Assessment Tool 5 Year Breast Cancer Risk 3.70% Lifetime Breast Cancer Risk 9.40% Personal Breast Cancer No Personal Ovarian Cancer No Treatments None Family Cancers Sister with breast cancer at age 51; Mother with lung cancer at age 62. LOCATION: [facility] BREAST COMPOSITION: Scattered areas fibroglandular density. [...] Tan MD on 01/21/2022 at 14:35 Normal [facility] URINALYSISOrdered By: Danielle de la rosa on [...] Interpretation Code Negative [facility] UA Auto SS [place].plasma/Lithiu m.RBC (Bld) [Mass ratio] 4-20 /HPF Normal 0-3/HPF [facility] UA Auto SS Nitrite Ql (U) Negative (12/12/21 11:49 AM) Normal Negative [facility] UA Auto SS pH (U) 5.5 *NA* (12/12/21 11:49 AM) Invalid Interpretation Code 5.0 - 9.0 [facility] [place] Auto [place] Protein (U) [Mass/Vol] Negative (12/12/21 11:49 AM) Normal Negative [facility] Auto SS Specific gravity (U) [Rel density] >=1.030 *NA* (12/12/21 11:49 AM) Invalid Interpretation Code 1.005 - 1.030 [facility] Auto SS UA Spec Desc Clean Catch (12/12/21 11:49 AM) Normal [facility] Auto SS Urobilinogen Qn (U) 0.8526897 {Cortez'U}/dL Normal 0.0 - 1.0 EU/dL [facility] Auto SS WBC Auto Ql (U) Negative (12/12/21 11:49 AM) Normal Negative [facility] Auto SS WBC LM.HPF (Urine sed) [#/Area] 0-5 /HPF Normal 0-5/HPF [facility] Auto SS Vital Signs Date Time Vital Sign Value Performing Clinician Facility 03-10-2024 14:58-0400 Body height 162.56 cm [facility] 03-10-2024 14:58-0400 Body mass index (BMI) [Ratio] 36.7 kg/m2 [facility] 03-10-2024 14:58-0400 Body weight 97.06 kg [facility] 03-10-2024 14:58-0400 Diastolic blood pressure 75 mm[Hg] [facility] 03-10-2024 14:58-0400 Heart rate 84 /min [facility] 03-10-2024 14:58-0400 Respiratory rate 12 /min [facility] 03-10-2024 14:58-0400 Systolic blood pressure 114 mm[Hg] [facility] 11-11-2023 15:50-0400 Body height 162.56 cm [facility] 11-11-2023 15:50-0400 Body mass index (BMI) [Ratio] 36.7 kg/m2 [facility] 11-11-2023 15:50-0400 Body weight 97.12 kg [facility] 11-11-2023 15:50-0400 Diastolic blood pressure 84 mm[Hg] [facility] 04-16-2024 15:50-0400 Heart rate 73 /min [facility] 11-11-2023 15:50-0400 Respiratory rate 12 /min [facility] 11-11-2023 15:50-0400 Systolic blood pressure 132 mm[Hg] [facility] 05-07-2023 08:03-0400 Blood Pressure Location Ramila Lue [facility] 05-07-2023 08:03-0400 Diastolic blood pressure 73 mm[Hg] Ramila Lue [facility] 05-07-2023 08:03-0400 Heart rate 70 /min Ramila Lue [facility] 05-07-2023 08:03-0400 Respiratory rate 16 /min Ramila Lue [facility] 05-07-2023 08:03-0400 Systolic blood pressure 127 mm[Hg] Ramila Lue [facility] 04-22-2023 08:45-0400 Body height 162.56 cm Alden Ball Other [facility] Other 04-22-2023 08:45-0400 Body mass index (BMI) [Ratio] 36.8 kg/m2 Alden Ball Other [facility] Other 04-22-2023 08:45-0400 Body weight 97.25 kg Alden Ball Other [facility] Other 04-22-2023 08:45-0400 Diastolic blood pressure 83 mm[Hg] Alden Ball Other [facility] Other 04-22-2023 08:45-0400 Respiratory rate 12 /min Alden Ball Other [employer] Other 04-22-2023 08:45-0400 Systolic blood pressure 135 mm[Hg] Alden Ball Other [employer] Other 12-30-2022 08:45-0400 Body height 162.56 cm Alden Ball Other [employer] Other 12-30-2022 08:45-0400 Body mass index (BMI) [Ratio] 37.35 kg/m2 Alden Ball Other [employer] Other 12-30-2022 08:45-0400 Body weight 98.7 kg Alden Ball Other [employer] Other 12-30-2022 08:45-0400 Diastolic blood pressure 74 mm[Hg] Alden Ball Other [employer] Other 12-30-2022 08:45-0400 Respiratory rate 12 /min Alden Ball Other [employer] Other 12-30-2022 08:45-0400 Systolic blood pressure 121 mm[Hg] Alden Ball Other [employer] Other 11-01-2022 10:30-0400 Body height 162.56 cm Alden Ball Other [employer] Other 11-01-2022 10:30-0400 Body mass index (BMI) [Ratio] 37.72 kg/m2 Alden Ball Other [employer] Other 11-01-2022 10:30-0400 Body weight 99.7 kg Alden Ball Other [employer] Other 11-01-2022 10:30-0400 Diastolic blood pressure 72 mm[Hg] Alden Ball Other [facility] Other 11-01-2022 10:30-0400 Respiratory rate 12 /min Alden Ball Other [facility] Other 11-01-2022 10:30-0400 Systolic blood pressure 122 mm[Hg] Alden Ball Other [facility] Other 05-01-2022 08:17-0400 Blood Pressure Location Ramila Lue [facility] 05-01-2022 08:17-0400 Diastolic blood pressure 80 mm[Hg] Ramila Lue [facility] 05-01-2022 08:17-0400 Heart rate 74 /min Ramila Lue [facility] 05-01-2022 08:17-0400 Systolic blood pressure 132 mm[Hg] Ramila Lue [facility] 12-12-2021 11:07-0400 Blood Pressure Location Ramila Lue [facility] 12-12-2021 11:07-0400 Diastolic blood pressure 83 mm[Hg] Ramila Lue [facility] 12-12-2021 11:07-0400 Heart rate 69 /min Ramila Lue [facility] 12-12-2021 11:07-0400 Respiratory rate 16 /min Ramila Lue [facility] 12-12-2021 11:07-0400 Systolic blood pressure 135 mm[Hg] Ramila Pradhan [facility] Encounters Encounter Date Encounter Type Care Provider Facility Start: 05-12-2024 ambulatory Ramila Pradhan Facility:[facility] Start: 03-10-2024 End: 03-10-2024 ambulatory [facility] Work Phone: Start: 03-10-2024 End: 03-10-2024 Patient encounter procedure [facility] Work Phone: Start: 02-16-2024 End: 02-16-2024 ambulatory DEANA LOMAS Not Available Start: 01-27-2024 End: 01-27-2024 ambulatory ADRIANA BRICENO Not Available Start: 12-19-2023 End: 12-19-2023 ambulatory CLAY TORRES Not Available Start: 12-16-2023 End: 12-16-2023 ambulatory ADRIANA BRICENO Not Available Start: 12-09-2023 End: 12-09-2023 ambulatory ADRIANA BRICENO Not Available Start: 12-05-2023 End: 12-05-2023 ambulatory [facility] Start: 12-02-2023 End: 12-02-2023 ambulatory ADRIANA BRICENO Not Available Start: 11-11-2023 End: 11-11-2023 ambulatory [facility] Work Phone: Start: 11-11-2023 End: 11-11-2023 Patient encounter procedure [facility] Work Phone: Start: 10-30-2023 End: 10-30-2023 ambulatory ADRIANA BRICENO Not Available Start: 10-01-2023 Non-patient / Non-visit [facility] Work Phone: Start: 09-30-2023 Non-patient / Non-visit [facility] Work Phone: Start: 09-25-2023 Non-patient / Non-visit [facility] Work Phone: Start: 06-25-2023 End: 06-25-2023 ambulatory DEANA LOMAS Not Available Start: 06-10-2023 End: 06-10-2023 ambulatory Alden Ball Other [employer] Other Start: 06-10-2023 Telephone encounter Alden Ball [facility] Start: 06-09-2023 End: 06-09-2023 ambulatory GAIL NAVA Not Available Start: 05-07-2023 End: 05-08-2023 ambulatory Ramila Pradhan Facility:[facility] Start: 05-07-2023 End: 05-07-2023 Patient encounter procedure Ramila Pradhan [facility] Start: 04-22-2023 End: 04-22-2023 ambulatory Alden Ball Other [employer] Other Start: 04-22-2023 Office outpatient visit 15 minutes Alden Ball [facility] Start: 02-03-2023 End: 02-03-2023 ambulatory Alden Ball Other [employer] Other Start: 02-03-2023 Telephone encounter Alden Ball [facility] Start: 01-24-2023 End: 01-24-2023 ambulatory Alden Ball Other [employer] Other Start: 01-24-2023 Telephone encounter Alden Ball [facility] Start: 01-08-2023 End: 01-08-2023 ambulatory Alden Ball Other [employer] Other Start: 01-08-2023 Telephone encounter Alden Ball [facility] Start: 12-30-2022 End: 12-30-2022 ambulatory Alden Jamison Other [employer] Other Start: 12-30-2022 Office outpatient visit 15 minutes Alden Jamison [facility] Start: 12-12-[address] ALDEN JAMISON Facili ty:[facility]1 Start: 12-05-2022 End: 12-06-[address] REINA TAN Facility:[facility] Start: 11-28-2022 End: 11-29-[address] REINA TAN Facility:[facility] Start: 11-25-2022 End: 11-26-[address] REINA TAN Facility:[facility] Start: 11-13-2022 End: 11-14-[address] REINA TAN Facility:[facility] Start: 11-06-2022 End: 11-07-[address] REINA TAN Facility:[facility] Start: 11-04-2022 End: 11-04-2022 ambulatory Alden Shaheen Other [employer] Other Start: 11-04-2022 Telephone encounter Alden Jamison [facility] Start: 11-01-2022 End: 11-01-2022 ambulatory Alden Jamison Other [employer] Other Start: 11-01-2022 Office outpatient visit 15 minutes Alden [facility] Start: 10-23-2022 End: 10-24-[address] REINA TAN Facility:[facility] Start: 10-18-2022 End: 10-19-[address] REINA TAN Facility:[facility] Start: 05-28-2022 End: 05-29-[address] DOCTOR JUAN Facility:[facility] Start: 05-27-2022 End: 05-28-[address] DOCTOR JUAN Facility:[facility] Start: 05-01-2022 End: 05-01-2022 Patient encounter procedure Ramila Pradhan [facility] Start: 02-28-2022 End: 03-01-[address] REINA TAN Facility:[facility] Start: 01-22-2022 End: 01-22-2022 Patient encounter procedure Ed Kramer Jr. [facility] Start: 01-21-2022 End: 01-22-[address] ALDEN JAMISON Facility:[facility] Start: 12-12-2021 End: 12-12-2021 Lab Drop off Ramila Pradhan [facility] Start: 12-12-2021 End: 12-12-2021 Patient encounter procedure Ramila Pradhan [facility] Procedures Date Procedure Procedure Detail Performing Clinician Start: 2020 Cataract extraction and insertion of intraocular lens Ramila Lue Start: 03-21-2020 Cataract extraction and insertion of intraocular lens Ramila Lue Cholecystectomy Ramila Lue Procedure on knee Ramila Chaparroe Plan of Treatment Date Care Activity Detail Author Start: 11-11-[address] [facility] Work Phone: Patient referral [facility] Work Phone: [place] Lower extremity vein - left [facility] Immunizations Immunization Date Immunization Notes Care Provider Fa cility 04-22-2023 influenza virus vaccine, unspecified formulation [facility] 04-22-2023 influenza, high dose seasonal, preservative-free Alden Jamison Other [employer] Other 12-30-2022 zoster vaccine recombinant Alden Jamison Other [facility] 05-27-2022 influenza virus vaccine, split virus (incl. purified surface antigen) Alden Jamison Other [employer] Other 05-27-2022 influenza virus vaccine, unspecified formulation [facility] 06-30-2021 SARS-CoV-2 (COVID-19 ) Ad26 vaccine, recombinant Ramila Pradhan [facility] Comment on above: Result Comment: 2021: [id number] 05-25-2021 influenza virus vaccine, split virus (incl. purified surface antigen) Alden Jamison Other [facility] Other 05-25-2021 influenza virus vaccine, unspecified formulation Ramila Pradhan [facility] 09-29-2020 COVID-19 vaccine, vector-nr, rS-Ad26, PF, 0.5 mL; Translations: [Susana COVID-19 Vaccine] Ramila Pradhan [facility] Comment on above: Reason for Medicatio n: Prophylaxis 05-08-2020 influenza virus vaccine, split virus (incl. purified surface antigen) Alden Jamison Other [facility] Other 05-08-2020 influenza virus vaccine, unspecified formulation Ramila Pradhan [facility] 05-18-2019 influenza virus vaccine, split virus (incl. purified surface antigen) Alden Jamison Other [facility] Other 05-18-2019 influenza virus vaccine, unspecified formulation [facility] 05-06-2018 influenza virus vaccine, split virus (incl. purified surface antigen) Alden Jamison Other [facility] Other 05-06-2018 influenza virus vaccine, unspecified formulation Ramila Lue [facility] 04-24-2017 influenza virus vaccine, split virus (incl. purified surface antigen) Alden Jamison Other [facility] Other 04-24-2017 influenza virus vaccine, unspecified formulation Ramila Lue [facility] 04-01-2017 influenza virus vaccine, unspecified formulation Ramila Lue [facility] 05-28-2016 pneumococcal polysaccharide vaccine, 23 valent Ramila Lue [facility] 04-22-2016 influenza virus vaccine, split virus (incl. purified surface antigen) Alden Jamison Other [employer] Other 04-22-2016 influenza virus vaccine, unspecified formulation Ramila Lue [facility] 04-22-2016 pneumococcal conjuga te vaccine, 13 valent Ramila Lue [facility] 04-28-2015 influenza virus vaccine, split virus (incl. purified surface antigen) Alden Jamison Other [employer] Other 04-28-2015 influenza virus vaccine, unspecified formulation [facility] 04-19-2015 pneumococcal conjuga te vaccine, 13 valent Alden Jamison Other [facility] Payers Date Payer Category Payer Unknown [id number] 2.16.8 [id number] 2020 Unknown [id number] 1959 Medicare [id number] 2.1 [id number] 1959 Self-pay [id number] 1959 Unknown [id number] 1950 Unknown [id number] 2.16.84 0.1.664283.3.579.2.593 1950 Unknown [id number] 2.16.84 0.1.258401.3.579.2.593 1950 Unknown [id number] 2.16.84 0.1.858980.3.579.2.593 1950 Unknown [id number] 2.16.84 0.1.995248.3.579.2.593 1950 Unknown [id number] 2.16.84 0.1.488333.3.579.2.593 1949 Unknown [id number] 2.16.84 0.1.091921.3.579.2.593 1949 Unknown [id number] 2.16.84 0.1.698407.3.579.2.593 1949 Unknown [id number] 2.16.84 0.1.902968.3.579.2.593 1949 Unknown [id number] 2.16.84 0.1.777261.3.579.2.593 1949 Unknown [id number] 2.16.84 0.1.102498.3.579.2.593 1949 Unknown [id number] 2.16.8 40.1.404502.3.579.2.727 1950 Unknown [id number] 2.16.8 40.1.839977.3.579.2.727 1949 Unknown [id number] 2.16.8 40.1.599733.3.579.2.1286 1949 Unknown [id number] 2.16.84 0.1.094625.3.579.2.1259 1950 Unknown [id number] 2.16.84 0.1.655807.3.579.2.1259 1950 Unknown [id number] 2.16.84 0.1.791155.3.579.2.9 1950 Unknown [id number] 2.16.84 0.1.811623.3.579.2.1258 1950 Unknown [id number] 2.16.84 0.1.711633.3.579.2.1258 1949 Unknown [id number] 2.16.84 0.1.655540.3.579.2.1258 1949 Unknown [id number] 2.16.84 0.1.804678.3.579.2.1258 1950 Unknown [id number] 2.16.84 0.1.836529.3.579.2.1258 1950 Unknown [id number] 2.16.840 .1.275225.3.579.2.1258 1950 Unknown [id number] 2.16.840. 1.211123.3.579.2.1259 Unknown [id number] 2.16.84 0.1.953508.3.579.2.593 Unknown [id number] 2.16.84 0.1.027968.3.579.2.593 Social History Date Type Detail Facility Start: 12-12-2021 End: 05-07-2023 Tobacco smoking status Ex-smoker (finding) [facility] Sex Assigned At Female [facility] Tobacco smoking status Never [facility] Start: 1950 Sex Assigned At Female F [facility] Medical Equipment Procedure Code Equipment Code Equipment Origin al Text Equipment Identifier Dates [id number] FDA Start: 03-21-2020 [id number] FDA Start: 2020 Functional Status Date Assessment Result Facility 10-11-2023 Functional Status N/A [facility] 05-01-2022 Functional Status N/A [facility] Clinical Notes 12-12-2021 to 05-07-2023 [...] include: ?8 oz (237 mL) of milk, uuxosjr-lbkhexlduzpb-rnbds milk, and calcium-fortifiedfruit juice. Calcium-fortified means that [...] ?Spinach (cooked), rhubarb, beets, sweet potatoes, and Fijian chard. ?Peanuts. ?Potato chips, namibian fries, and baked potatoes with skin on. ?Nuts and nut products. ?Chocolate. If you regularly take a diuretic medicine, make sure to eat at least 1 or 2 servings of fruits or vegetables that are high in potassium each day. These include: ?Avocado. ?Banana. ?Mantoloking, prune, carrot, or tomato juice. ?Baked potato. [...] magnesium, fish oil, or vitamin B6. Take hxis-fwi-mrsdbtr and prescription medicines only as told by [...] Casseroles. Pizza. Lasagna. Frozen meals. Potato chips. Frisian fries. The items listed above may not [...] provider. Document Revised: 03/25/2022 Document Reviewed: 03/25/2022 [place] Patient Education 2022 [employer]. Follow Up Care 05/01/2022 08:32:42 With:Lorne GONZALEZ, Ramila Pascal URSaira, URO Address: When: Unknown Comments:Gerald Barragan Ureteroscopy/LaserLitho [facility] [employer] 04-22-2023 Evaluation note Encounter Date Diagnosis Assessment Notes Mar, Acute left-sided low back pain without sciatica (ICD-10 - M54.50) Push fluids ER or call office w/ recurrent flank pain or hematuria Mar, Gross hematuria (ICD-10 - R31.0) Push fluids CT abd/pelvis to r/o renal tumor, renal stone, hydronephrosis f/u for hematuria evaluation [employer] Other 06-05-2023 Evaluation note* Encounter Date Diagnosis Assessment Notes Treatment Notes Treatment Clinical Notes Dec, Cervical spondylosis (ICD-10 - M47.812) ROM exercises, ice/heat and rest. Begin NSAIDs and muscles relaxant at night. PT if no improvement. XR Dec, Torticollis (ICD-10 - M43.6) Heat/ice and NSAIDs/muscle relaxant. PT if no improvement Dec, Dry mouth (ICD-10 - R68.2) Push water, lozenges [employer] Other 04-07-2023 Evaluation note* Encounter Date Diagnosis [...] Tylenol and Motrin. ROM exercises, Voltaren Gel [employer] Other [id number] Hospital Discharge instructions Patient Education 05/01/2022 08:20:59 [...] 06/30/2013 Document Revised: 03/03/2019 Document Reviewed: 03/03/2019 [place] Patient Education 2020 [employer]. 05/01/2022 08:20:59 Calorie Counting for Weight Loss [...] 07/14/2006 Document Revised: 04/02/2019 Document Reviewed: 06/13/2017 [place] Patient Education 2020 [employer]. Follow Up Care 12/12/2021 12:13:24 With:Lorne GONZALEZ, TEDDY Gonzalez, URO Address: When:Within 1 Year(s) [facility] 05-18-2022 Hospital Discharge instructions Patient Education 12/12/2021 [...] Follow these instructions at home: Medicines Take kzvj-odf-yhjlzoz and prescription medicines only as told by [...] or the blood stops without treatment. Take nhrm-vwo-nnjvxpc and prescription medicines only as told by your health care provider. Drink enough fluid to keep your urine clear or pale yellow. This information is not intended to replace advice given to you by your health care provider. Make sure you discuss any questions you have with your health care provider. Document Released: 07/14/2006 Document Revised: 12/08/2019 Document Reviewed: 08/16/2017 [employer] Patient Education 2020 [employer] Follow Up Care 06/06/2021 10:30:38 With:Ramila Pradhan MD, TEDDY, URO Address: When:3 months [facility] evaluation + Plan note Future Appointments Appointment Date:12/21/2021 07:30:00 AM Scheduled Provider: Location:[place] Appointment Type:PT Pelvic Floor/UI Eval (FT) Appointment Date:05/01/2022 08:00:00 AM Scheduled Provider:Ramila Pradhan MD Location:[facility] Appointment Type:URO Office Visit [facility] evaluation + Plan note Future Appointments Appointment Date:12/21/2021 07:30:00 AM Scheduled Provider: Location:[place] Appointment Type:PT Pelvic Floor/UI Eval (FT) Appointment Date:05/01/2022 08:00:00 AM Scheduled Provider:Ramila Pradhan MD Location:[facility] Appointment Type:URO Office Visit Diagnostic Tests Pending * [facility]ments Appointment Date:02/06/2022 11:15:00 AM Scheduled Provider: Location[place] Appointment Type:PT Pelvic Floor/UI Re-Eval (FT) Appointment Date:02/25/2022 07:00:00 AM Scheduled Provider: Location:[place] Appointment Type:PT Pelvic Floor/UI (FT) Appointment Date:03/04/2022 07:00:00 AM Scheduled Provider: [place] Appointment Type:PT Pelvic Floor/UI (FT) Appointment Date:03/11/2022 07:00:00 AM Scheduled Provider: Location:[place] Appointment Type:PT Pelvic Floor/UI (FT) Appointment Date:03/18/2022 08:30:00 AM Scheduled Provider: Location[place] Appointment Type:PT Pelvic Floor/UI Re-Eval (FT) Appointment Date:05/01/2022 08:00:00 AM Scheduled Provider:Ramila Pradhan MD Location:[facility] Appointment Type:URO Office Visit [facility] evaluation + Plan note Future Appointments Appointment Date:05/07/2023 08:00:00 AM Scheduled Provider:Ramila Pradhan MD Location:[facility] Appointment Type:URO Office Visit [facility]No [facility] Other Evaluation noteNo assessment information available [facility] Work Phone: Evaluation note* Diagnosis Onset Date Resolution Status Rectal bleeding acute Trapezius muscle strain none active Neck pain noneactive [facility] Work Phone: Evaluation note* Diagnosis Onset Date Resolution Status Chronic venous insufficiency acute Primary osteoarthritis of both knees acute Left leg swelling noneactive [facility] Work Phone: History general Narrative - [...] History COLONOSCOPY Hospitalization History SEE SURGICAL HX [facility] Other Hospital course Narrative No data available for this section [facility] Hospital Discharge instructions No data available for this section [facility]* Referral to General Surgery Location: None Selected [facility] Work Phone: Progress note No data available for this section [facility] Summary Purpose Family History No Family History Records Found No data available for this section No Family History Records FoundNo Family History Records FoundNo Family History Records Found Advance Directives Advance Directive Response Recorded Date/ Time Advance Directives No November 10 024 3:40pm Chief Complaint and Reason for Visit Chief Complaint Amb Documentation Amb Documentation back pain/bloody stool Chief Complaint Amb Documentation Amb Documentation back pain/bloody stool Reason for Visit Rectal bleeding Trapezius muscle strain Neck pain Chief Complaint left leg swelling Reason for Visit Chronic venous insuf ficiency Primary osteoarthritis of both knees Left leg swelling Additional Source Comments Care Team (unrecognized sect ion and content) Team Status: Active Member Role Status Dates Alden Jamison DO Primary Care Provider Active Team Status: Inactive Member Role Status Dates Alden Jamison DO Primary Care Provide r, Attending Provider Active Start: March 10, 2024 End: March 10, 2024 Team Status: Active Member Role Status Dates [...] 2023 Team Status: Active Member Role Status Melissa Jamison DO Primary Care Provide r, Attending Provider Active Start: October 01, 2023 Team Status: Inactive Member Role Status Dates Alden Jamison DO Primary Care Provide r, Attending Provider Active Start: November 11, 2023 End: November 11, 2023 Team Status: Inactive Member Role Status Dates Alden Jamison DO Primary Care Provide r, Attending Provider Active Start: March 10, 2024 End: March 10, 2024 REASON FOR VISIT (unrecogniz ed section and content) FELL HURT SHOULDER AND NECKU pdateNeck PainXray resultsMammogram resultsmedication questionTBHLab results INFORMATION SOURCE (unrecogn ized section and content) DATE CREATED AUTHOR 12/12/2022 [facility] DATE CREATED AUTHOR AUTHOR'S ORGANIZ ATION 05/13/2023 [facility] DATE CREATED AUTHOR AUTHOR'S ORGANIZ ATION 12/07/2023 [facility] DATE CREATED AUTHOR AUTHOR'S ORGANIZ ATION 02/18/2024 [facility] EPIC Goals (unrecognized section [...] BE BASED ON THE PRIMARY CLINICAL RECORDS. [facility] [employer] [facility]. provides no warranty or guarantee of the accuracy or completeness of information in this document.
--- NOTE | 2024-03-15 09:39 | VEINCLINIC_ITS ---
Varicose Veins Patient is in this day for DVT follow up ultrasound post DVT finding on 03/10/24. Patient was put on Xarelto d/t DVT finding. Gonzalo Abel MD personally performed the services described in this documentation, as scribed by Denisha Putnam RVT, RDMS in my presence and it is both accurate and complete. I, Denisha Putnam RVT, RDMS, am scribing for, and in the presence of, Dr. Gonzalo Joseph and in the presence of the patient. knee: left aching and dull 3 Worsened in recent months: Yes standing and walking bed rest Reports edema (knee area ) History of lower extremity trauma: No Superficial thrombophlebitis: No Family history of varicose veins: yes Has patient had previous lower extremity venous surgery: Yes Patient has previously received the following treatment(s) for lower extremity varicose veins: Reports vein ablation, sclerotherapy and foam therapy Does patient have a history of : yes Does patient intend to have future pregnancies: no Has patient had lower extremity venous scan with relux testing: Yes Support hose used: Yes Problems walking or doing physical activity: Yes How does it affect you: bilateral knee pain and swelling R>L Do you walk much: Yes Do you stand much: Yes Review of Systems ROS Narrative Gonzalo Abel MD personally performed the services described in this documentation, as scribed by Denisha Putnam RVT, RDMS in my presence and it is both accurate and complete. I, Denisha Putnam RVT, RDMS, am scribing for, and in the presence of, Dr. Gonzalo Joseph and in the presence of the patient. [facility] Medical History (Updated 03/15/24 @ 09:51 by Denisha Putnam) Chronic phlebitis of superficial vein of left lower extremity ?I80.02 - Phlebitis and thrombophlebitis of superficial vessels of left lower extremity (ICD-10) Hearing loss ?H91.90 - Unspecified hearing loss, unspecified ear (ICD-10) Colon polyp ?K63.5 - Polyp of colon (ICD-10) COPD (chronic obstructive pulmonary disease) ?J44.9 - Chronic obstructive pulmonary disease, unspecified (ICD-10) Surgical History (Updated 12/19/23 @ 20:47 by Griselda Tejada) History of colonoscopy ?Z98.890 - Other specified postprocedural states (ICD-10) History of knee surgery ?Z98.890 - Other specified postprocedural states (ICD-10) History of surgical procedure on mouth ?Z98.890 - Other specified postprocedural states (ICD-10) History of surgery on right wrist ?Z98.890 - Other specified postprocedural states (ICD-10) History of section ?Z98.891 - History of uterine scar from previous surgery (ICD-10) History of cholecystectomy ?Z90.49 - Acquired absence of other specified parts of digestive tract (ICD- 10) History of ankle surgery ?Z98.890 - Other specified postprocedural states (ICD-10) Family History (Updated 12/19/23 @ 20:51 by Griselda Tejada) Mother Lung cancer Sister Breast cancer Other Heart disease Social History (Updated 12/23/23 @ 13:04 by Rona Smith) Within the past year, how often did you have a drink containing alcohol: 2-4 times a month Within the past year, how many standard drinks containing alcohol did you have on a typical day: 3 or 4 Smoking status: Former smoker Non-prescribed substance use: denies use Previous occupational history: retired Highest level of school completed/degree received: high school graduate Meds Home Medications and Allergies Home Medications ?Medication ?Instructions ?Recorded ?Confirmed ?Type ibuprofen 800 mg tablet 800 mg PO Q8H PRN pain #20 tabs 04/15/23 12/31/23 Rx aspirin 81 mg tablet,delayed 81 mg PO DAILY 12/19/23 12/31/23 History release prednisolone acetate 1 % eye 1 drp ophthalmic (eye) QID 12/19/23 12/31/23 History drops,suspension (Pred Forte) tizanidine 2 mg capsule 2 mg PO DAILY PRN muscle spasticity 12/19/23 12/31/23 History rivaroxaban 15 mg (42)-20 mg (9) See Rx Instructions PO .COMPLEX 03/15/24 03/15/24 History tablets in a starter pack (Xarelto DVT-PE Treatment 30-Day Starter) Allergies Allergy/AdvReac Type Severity Reaction Status Date / Time latex Allergy Rash Verified 12/23/23 13:11 Exam Narrative Exam Narrative: IGonzalo MD personally performed the services described in this documentation, as scribed by Denisha Putnam RVT, RDMS in my presence and it is both accurate and complete. I, Denisha Putnam RVT, RDMS, am scribing for, and in the presence of, Dr. Gonzalo Joseph and in the presence of the patient. Constitutional Documenting provider has reviewed patient's vital signs: yes Common normals: oriented x3 Lymph Lymphatic: no lymphedema noted Cardio Common normals: regular rate Rate: regular rate Peripheral pulses: posterior tibial pulses present and dorsalis pedis pulses present Extremity Common normals: normal capillary refill General: edema Neuro Common normals: oriented x3 Results Imaging Venous US: Radiologist's impression: The ultrasound demonstrates partial compressibility of mid gastroc vein that is 1.2 cm in length. Otherwise negative. Assessment and Plan Assessment and Plan (1) Chronic phlebitis of superficial vein of left lower extremity: Plan The plan is for the patient to continue the Xarelto for its extent. After the 30 day DVT therapy the patient will stop taking Xarelto.
--- NOTE | 2024-03-15 09:52 | W.VEIN ---
Discharge Plan Discharge Disposition: Home, Self-Care Discharge Medications: No Action ibuprofen 800 mg tablet 800 mg PO Q8H PRN (Reason: pain) Qty: 20 0RF aspirin 81 mg tablet,delayed release (DR/EC) 81 mg PO DAILY tizanidine 2 mg capsule 2 mg PO DAILY PRN (Reason: muscle spasticity) prednisolone acetate [Pred Forte] 1 % drops,suspension 1 drp ophthalmic (eye) QID Patient Comments: left eye Xarelto DVT-PE Treat 30d Start 15 mg (42)- 20 mg (9) tablets,dose pack See Rx Instructions .ROUTE .COMPLEX Rx Instructions: take one-15 mg tablet twice daily for 21 days, then one-20 mg tablet once daily; must take with meal/food Plan of Treatment: Patient will continue course of Xarelto and then stop taking it after the 30 day therapy period. Print Language: Syriac Discharge Date/Time: 03/15/24 09:53
== END 2024-03-15 09:53 | disposition home or self-care (01) ==
LOC: VC 08:50
PROVIDERS: PCP Radiology Diagnostic Radiology; Visit Provider Radiology Diagnostic Radiology
DX: I80.02 Phlebitis and thrombophlebitis of superficial vessels of left lower extremity (principal)
CPT/HCPCS: 93971; G0463

== ENCOUNTER 2024-04-05 07:55 | Outpatient (OUT) | payer MEDICARE, OTHER, SELFPAY ==
[2024-04-05 07:17] VITALS: BMI 73.4
--- NOTE | 2024-04-05 07:17 | VEINCLINIC_ITS ---
Vital Signs 04/05/24 07:17 Height 5 ft 5 in Weight 200 kg BMI 73.4 Varicose Veins Patient in today for follow up ultrasound of left lower extremity for DVT finding on 03/10/24. Gonzalo Abel MD personally performed the services described in this documentation, as scribed by Mai Chamberlain RDMS in my presence and it is both accurate and complete. I, Mai Chamberlain RDMS, am scribing for, and in the presence of, Dr. Gonzalo Joseph and in the presence of the patient. knee: left aching and dull 3 Worsened in recent months: Yes standing and walking bed rest Reports edema (knee area ) History of lower extremity trauma: No Superficial thrombophlebitis: No Family history of varicose veins: yes Has patient had previous lower extremity venous surgery: Yes Patient has previously received the following treatment(s) for lower extremity varicose veins: Reports vein ablation, sclerotherapy and foam therapy Does patient have a history of : yes Does patient intend to have future pregnancies: no Has patient had lower extremity venous scan with relux testing: Yes Support hose used: Yes Problems walking or doing physical activity: Yes How does it affect you: bilateral knee pain and swelling R>L Do you walk much: Yes Do you stand much: Yes Review of Systems ROS Narrative Gonzalo Abel MD personally performed the services described in this documentation, as scribed by Mai Chamberlain RDMS in my presence and it is both accurate and complete. Mai Abel RDMS, am scribing for, and in the presence of, Dr. Gonzalo Joseph and in the presence of the patient. [facility] Medical History (Updated 03/15/24 @ 09:51 by Denisha Putnam) Chronic phlebitis of superficial vein of left lower extremity ?I80.02 - Phlebitis and thrombophlebitis of superficial vessels of left lower extremity (ICD-10) Hearing loss ?H91.90 - Unspecified hearing loss, unspecified ear (ICD-10) Colon polyp ?K63.5 - Polyp of colon (ICD-10) COPD (chronic obstructive pulmonary disease) ?J44.9 - Chronic obstructive pulmonary disease, unspecified (ICD-10) Surgical History (Updated 12/19/23 @ 20:47 by Griselda Tejada) History of colonoscopy ?Z98.890 - Other specified postprocedural states (ICD-10) History of knee surgery ?Z98.890 - Other specified postprocedural states (ICD-10) History of surgical procedure on mouth ?Z98.890 - Other specified postprocedural states (ICD-10) History of surgery on right wrist ?Z98.890 - Other specified postprocedural states (ICD-10) History of section ?Z98.891 - History of uterine scar from previous surgery (ICD-10) History of cholecystectomy ?Z90.49 - Acquired absence of other specified parts of digestive tract (ICD- 10) History of ankle surgery ?Z98.890 - Other specified postprocedural states (ICD-10) Family History (Updated 12/19/23 @ 20:51 by Griselda Tejada) Mother Lung cancer Sister Breast cancer Other Heart disease Social History (Updated 12/23/23 @ 13:04 by Rona Smith) Within the past year, how often did you have a drink containing alcohol: 2-4 times a month Within the past year, how many standard drinks containing alcohol did you have on a typical day: 3 or 4 Smoking status: Former smoker Non-prescribed substance use: denies use Previous occupational history: retired Highest level of school completed/degree received: high school graduate Meds Home Medications and Allergies Home Medications ?Medication ?Instructions ?Recorded ?Confirmed ?Type ibuprofen 800 mg tablet 800 mg PO Q8H PRN pain #20 tabs 04/15/23 12/31/23 Rx aspirin 81 mg tablet,delayed 81 mg PO DAILY 12/19/23 12/31/23 History release prednisolone acetate 1 % eye 1 drp ophthalmic (eye) QID 12/19/23 12/31/23 Histo ry drops,suspension (Pred Forte) tizanidine 2 mg capsule 2 mg PO DAILY PRN muscle spasticity 12/19/23 12/31/23 History Allergies Allergy/AdvReac Type Severity Reaction Status Date / Time latex Allergy Rash Verified 12/23/23 13:11 Exam Narrative Exam Narrative: IGonzalo MD personally performed the services described in this documentation, as scribed by Mai Chamberlain RDMS in my presence and it is both accurate and complete. I, Mai Chamberlain RDMS, am scribing for, and in the presence of, Dr. Gonzalo Joseph and in the presence of the patient. Constitutional Documenting provider has reviewed patient's vital signs: yes Common normals: oriented x3 Lymph Lymphatic: no lymphedema noted Cardio Common normals: regular rate Rate: regular rate Peripheral pulses: posterior tibial pulses present and dorsalis pedis pulses present Extremity Common normals: normal capillary refill General: edema Neuro Common normals: oriented x3 Results Imaging Venous US: Radiologist's impression: Slight improvement of thrombus in left gastrocnemius vein. Gonzalo Abel MD personally performed the services described in this documentation, as scribed by Mai Chamberlain RDMS in my presence and it is both accurate and complete. I, Mai Chamberlain RDMS, am scribing for, and in the presence of, Dr. Gonzalo Joseph and in the presence of the patient. Assessment and Plan Assessment and Plan (1) Chronic phlebitis of superficial vein of left lower extremity: Plan Plan is for patient to discontinue Xarelto and follow up with PCP. Patient is done with treatment at this time. Gonzalo Abel MD personally performed the services described in this documentation, as scribed by Mai Chamberlain RDMS in my presence and it is both accurate and complete. Page, Mai Chamberlain RDMS, am scribing for, and in the presence of, Dr. Gonzalo Joseph and in the presence of the patient.
--- NOTE | 2024-04-05 07:55 | VEIN_ITS ---
Patient Name: JB ESTRELLA MR#: [id number] : 1950 Exam Date: 04/05/2024 Ordering Doctor: DR GONZALO JOSEPH M.D. RADIOLOGY REPORT PROCEDURE: FACILITY EST [facility] - OFFICE VISIT FOLLOW UP COMPARISON: [facility] EST [facility], 03/15/2024. FACILITY EST LMTD, 12/26/2022. PROGRESS NOTES: The patient reports no significant issues with no change in symptoms from her prior exam. Physical exam demonstrates scattered reticular and spider veins. No erythema or warmth to suggest cellulitis or thrombophlebitis. No active ulceration. No significant varicose veins Review of the ultrasound performed the same day demonstrates slight decrease in now nonocclusive short-segment thrombus in a single gastrocnemius vein measuring 2 cm in length, significantly removed from the popliteal junction. VEIN/ Facility EST LMTD IMPRESSION: 1. Slight improvement in a very short segment deep vein thrombus in a single left gastrocnemius vein PLAN: Slight improvement in short segment of deep vein thrombus, consider discontinuation of anticoagulation Nurse notes, history and physical were reviewed and confirmed, see attached forms. The nurse was present throughout the physical exam and consultation Dictated by: Gonzalo Joseph MD on 04/05/2024 at 08:41 Approved by: Gonzalo Joseph MD on 04/05/2024 at 08:43
--- NOTE | 2024-04-05 07:55 | VEIN_ITS ---
Patient Name: JB ESTRLELA MR#: [id number] : 1950 Exam Date: 04/05/2024 Ordering Doctor: DR GONZALO JOSEPH M.D. RADIOLOGY REPORT PROCEDURE: VC EXT VENOUS LT LIMITED COMPARISON: VC EXT VENOUS LT LIMITED, 03/15/2024. VC EXT VENOUS LT LIMITED, 12/26/2022. INDICATIONS: I80.02 - Phlebitis and thrombophlebitis of superficial veins left leg TECHNIQUE: Lower extremity craven scale and Duplex Doppler evaluation of the deep venous system from the inguinal ligament through the calf veins. FINDINGS: REGION: Left lower extremity. THROMBI: Positive for DVT. Stable thrombus in left proximal gastrocnemius vein. COMPRESSIBILITY: Partial compressibility of segments. FLOW: Areas of no flow corresponding to thrombus CONCLUSION: Slight improvement in a short segment of deep vein thrombus in the proximal gastrocnemius vein measuring 2 cm in length, this now demonstrates some compressibility Dictated by: Gonzalo Joseph MD on 04/05/2024 at 08:18 Approved by: Gonzalo Joseph MD on 04/05/2024 at 08:19
--- NOTE | 2024-04-05 10:18 | W.VEIN ---
Discharge Plan Discharge Disposition: Home, Self-Care Discharge Medications: No Action ibuprofen 800 mg tablet 800 mg PO Q8H PRN (Reason: pain) Qty: 20 0RF aspirin 81 mg tablet,delayed release (DR/EC) 81 mg PO DAILY tizanidine 2 mg capsule 2 mg PO DAILY PRN (Reason: muscle spasticity) prednisolone acetate [Pred Forte] 1 % drops,suspension 1 drp ophthalmic (eye) QID Patient Comments: left eye Follow Up Appointments: None. Plan of Treatment: Discontinue Xarelto. Print Language: Dutch Discharge Date/Time: 04/05/24 10:19
== END 2024-04-05 10:19 | disposition home or self-care (01) ==
PROVIDERS: PCP Radiology Diagnostic Radiology; Visit Provider Radiology Diagnostic Radiology
DX: I80.02 Phlebitis and thrombophlebitis of superficial vessels of left lower extremity (principal)
CPT/HCPCS: 93971; G0463

== ENCOUNTER 2024-05-07 09:55 | Outpatient (OUT) | payer MEDICARE, OTHER, SELFPAY ==
--- NOTE | 2024-05-07 09:58 | XR_ITS ---
The [address] [address] Patient Name: JB ESTRELLA MRN: [id number] date: 1950 Sex: F Assigned Patient Location: Current Patient Location: Accession/Order Number: [id number] Exam Date: 05/07/2024 10:04 Report Date: 05/09/2024 06:00 At the request of: ANY BENNETT Procedure: XR abdomen 1V EXAMINATION: XR abdomen 1V HISTORY: Kidney Stone COMPARISON: No relevant comparison available. FINDINGS: KIDNEY/URETER - RIGHT: No visible renal or ureteral calcifications. KIDNEY/URETER - LEFT: No visible renal or ureteral calcifications. PELVIS: No visible ureteral stones. Right pelvic calcifications favor phleboliths. BOWEL: No abnormal dilation or deviation. BONES: Marked scoliosis of spine. Moderate degenerative changes of the hip joints. OTHER: Negative. No abnormal gaseous collections. XR/XR abdomen 1V IMPRESSION: 1. No appreciable urinary tract calculi. Electronically authenticated by: HARRISON GUADARRAMA Date: 05/09/2024 06:00
--- NOTE | 2024-05-07 09:58 | US_ITS ---
The [address] [address] Patient Name: JB ESTRELLA MRN: [id number] date: 1950 Sex: F Assigned Patient Location: Current Patient Location: [place] Accession/Order Number: [id number] Exam Date: 05/07/2024 10:00 Report Date: 05/09/2024 06:02 At the request of: ANY BENNETT Procedure: US renal BI EXAMINATION: US renal BI HISTORY: Kidney Stone COMPARISON: No relevant comparison available. TECHNIQUE: Ultrasound examination was performed of the kidneys and urinary bladder. FINDINGS: RIGHT KIDNEY: No evidence of pelvocaliectasis, mass, or calculi. Mild cortical thinning, 0.8 cm in thickness. Normal parenchymal echogenicity. Color Doppler demonstrates blood flow within the kidney. Kidney: 11.3 x 5.9 x 5.0 cm LEFT KIDNEY: No evidence of pelvocaliectasis, mass, or calculi. Mild cortical thinning, 1.0 cm. Normal parenchymal echogenicity. Color Doppler demonstrates blood flow within the kidney. Kidney: 10.2 x 4.8 x 5.8 cm BLADDER: No visible wall thickening, mass, or calculi. US/US renal BI IMPRESSION: 1. No appreciable mass, stones, or obstructive uropathy. 2. Mild cortical thinning; likely age related. Electronically authenticated by: HARRISON GUADARRAMA Date: 05/09/2024 06:02
--- OUTSIDE RECORDS SUMMARY | 2024-05-07 10:01 | XMS_ITS | CCD ---
Author Organization [facility] Care Team Providers Care Hospice Bereavement Coordinator Name Role Phone ALDEN JAMISON Primary Care [...] Attending Unavailable KAITY, ADRIANA Reyes Referring Unavailable ABEBE, DEANA Germain Attending Unavailable KAITY, ADRIANA Reyes Attending Unavailable KAITY, ADRIANA Reyes Attending Unavailable KAITY, ADRIANA Reyes Attending Unavailable CLAY TORRES Attending Unavailable GAIL NAVA Attending Unavailable SARGEANT, ADRIANA Reyes Attending Unavailable ABEBE, DEANA Germain Attending Unavailable ABEBE, DEANA Germain Attending Unavailable KAITY, ADRIANA Reyes Attending Unavailable MELISSA, CLAY Bedoya Attending Unavailable Allergies Allergy Classification Reported Allergen(s) Allergy Type Date of Onset Reaction(s) Facility (6 sources) Latex; Translations: [latex] Drug allergy 11-13-2015 Eruption of skin (disorder) [facility] Medications Current Medications Medication Drug Class(es) Dates Sig (Normalized) Sig (Original) apixaban 5 mg oral tablet (1 source) Factor Xa Inhibitor Start: 03-10-2024 take 2 tablets by mouth twice daily, then take 1 tablet by mouth twice daily Apixaban (Eliquis) 5 mg tablet Active 0 PO Twice daily 60 March 10, 2024 12:00am 10mg (2 tablets) twice daily for 7 days, then decrease to 5mg (1 tablet) twice daily for next 3 months aspirin 325 mg delayed release oral tablet (15 sources) Platelet Aggregation Inhibitor, Nonsteroidal Anti-inflammatory Drug [...] Orally Once a day Active bacillus coagulans [id number] unt / inulin 250 mg oral capsule [...] Status: Ordered predniSONE 20 mg oral tablet (2 sources) Start: 11-13-2023 Prednisone Act lou 20 MG [...] Status: Ordered tiZANidine 2 mg oral tablet (12 sources) Central alpha-2 Adrenergic Agonist Start: 11-11-2023 End: 03-24-2024 take 2 mg by mouth once daily at bedtime Tizanidine Active 2 MG PO Daily at bedtime March 24, 2024 10:35am Start: 12-30-2022 tiZANidine 2 m g Tab [...] Sig (Original) meloxicam 15 mg oral tablet (11 sources) Nonsteroidal Anti-inflammatory Drug Start: 11-11-2023 End: [...] stone] 05-07-2023 Episodic Deficiency and other anemia (9 sources) Anemia; Translations: [Anemia, unspecified] 06-06-2021 Episodic Deficiency and other anemia (8 sources) Microcytic hypochromic anemia; Translations: [Iron deficiency anemia, unspecified] Episodic Diseases of mouth; excluding dental (1 source) Dry mouth, unspecified Episodic Gastrointestinal hemorrhage (14 sources) Rectal hemorrhage; Translations: [Hemorrhage of anus and rectum] Onset: 4 11-11-2023 Episodic Genitourinary symptoms and ill-defined conditions (17 sources) Mixed incontinence; Translations: [Incontinence] Onset: 2 Chronic Genitourinary symptoms and ill-defined conditions (9 sources) Nocturia; Translations: [Nocturia] Onset: 2 Episodic Intracranial injury (1 source) Concussion without loss of consciousness, initial encounter Episodic Osteoarthritis (18 sources) Arthritis; Translations: [Arthritis of left knee] 06-06-2021 Chronic Other bone disease and musculoskeletal deformities (8 sources) Other specified disorders of bone density and structure, other site; Translations: [Osteopenia of lumbar spine] Episodic Other bone disease and musculoskeletal deformities (4 sources) Osteopenia; Translations: [Other specified disorders of bone density and structure, other site] 11-11-2023 Episodic Other connective tissue disease (3 sources) Other specified soft tissue disorders; Translations: [Swelling of limb] 03-10-2024 Episodic Other diseases of kidney and ureters (1 source) Urinary tract obstruction; Translations: [Hydronephrosis with renal and ureteral calculous obstruction] Onset: 3 Episodic Other diseases of veins and lymphatics (12 sources) Peripheral venous insufficiency; Translations: [Venous insufficiency (chronic) (peripheral)] 11-11-2023 Episodic Other diseases of veins and lymphatics (3 sources) Venous insufficiency (chronic) (peripheral); Translations: [Venous (peripheral) insufficiency, unspecified] 03-10-2024 Episodic Other nutritional; endocrine; and metabolic disorders (1 source) Obese class II; Translations: [Body mass index (BMI) 36.0-36.9, adult] Onset: 2 Chronic Other nutritional; endocrine; and metabolic disorders (2 sources) Body mass index 30+ - obesity 05-01-2022 Chronic Phlebitis; thrombophlebitis and thromboembolism (10 sources) Phlebitis and thrombophlebitis of superficial vessels of right lower extremity; Translations: [Phlebitis and thrombophlebitis of superficial vessels of left lower extremity] Onset: 3 Episodic Residual codes; unclassified (8 sources) Postmenopausal state; Translations: [Asymptomatic menopausal state] Episodic Screening and history of mental health and substance abuse codes (5 sources) Ex-smoker 06-06-2021 Episodic Spondylosis; intervertebral disc disorders; other back problems (11 sources) Cervical spondylosis; Translations: [Spondylosis without myelopathy or radiculopathy, cervical region] Chronic Spondylosis; intervertebral disc disorders; other back problems (2 sources) Torticollis; Translations: [Cervicalgia] Episodic Sprains and strains (2 sources) Strain of muscle, fascia and tendon at neck level, initial encounter; Translations: [Strain of other muscles, fascia and tendons at shoulder and upper arm level, unspecified arm, initial encounter] Episodic Substance-related disorders (12 sources) Tobacco user; Translations: [Nicotine dependence, cigarettes, [...] Basophils (Bld) [#/Vol] 0.0 10 3/uL 0.0-0.1 [facility] Basophils/100 WBC Auto (Bld) on 10-01-2023 Basophils/100 WBC (Bld) 0.5 % 0.2-2.0 [facility] Eosinophils/100 WBC Auto (Bl d)on 10-01-2023 Eosinophils/100 WBC (Bld) 4.6 % 0.9-7.0 [facility] Erythrocyte distribution wid th Auto (RBC) [Ratio]on 10-01-2023 Erythrocyte distribution width (RBC) [Ratio] 16.2 % 11.0-15.0 [facility] Hematocrit Auto (Bld) [Volum e fraction]on 10-01-2023 Hematocrit (Bld) [Volume fraction] 38.0 % 36.0-48.0 [facility] Hemoglobin [Mass/volume] in Bloodon 10-01-2023 Hemoglobin (Bld) [Mass/Vol] 11.3 g/dL 12.0-16.0 [facility] Iron binding capacity [Mass/ volume] in Serum or Plasmaon 10-01-2023 Iron binding capacity [Mass/Vol] 257.0 ug/dL 250.0-450.0 [facility] Iron saturation [Mass Fracti on] in Serum or Plasmaon 10-01-2023 Iron saturation [Mass fraction] 39.7 % [facility] Laboratory - Chemistry and C hemistry - challengeon 10-01-2023 Cobalamin (Vitamin B12) [Mass/Vol] 405.0 pg/mL 193.0-986.0 [facility] Ferritin [Mass/Vol] 345.0 ng/mL 8.0-252.0 [facility] Iron [Mass/Vol] 102.0 ug/dL 50.0-170.0 [facility] Laboratory - Hematology and Cell countson 10-01-2023 Immature granulocytes/100 WBC (Bld) 0.2 % 0.0-0.5 [facility] Leukocytes [#/volume] correc rock for nucleated erythrocytes in Blood by Automated counon 10-01-2023 WBC corrected for nucl RBC Auto (Bld) [#/Vol] 6.1 10 3/uL 4.0-11.0 [facility] Lymphocytes Auto (Bld) [#/Vo l]on 10-01-2023 Lymphocytes (Bld) [#/Vol] 1.7 10 3/uL 1.2-3.8 [facility] Lymphocytes/100 WBC Auto (Bl d)on 10-01-2023 Lymphocytes/100 WBC (Bld) 27.9 % 20.5-60.0 [facility] MCH Auto (RBC) [Entitic mass ]on 10-01-2023 MCH (RBC) [Entitic mass] 19.9 pg 26.7-34.0 [facility] MCHC Auto (RBC) [Mass/Vol]on 10-01-2023 MCHC (RBC) [Mass/Vol] 29.7 g/dL 29.9-35.2 [facility] MCV Auto (RBC) [Entitic vol] on 10-01-2023 MCV (RBC) [Entitic vol] 66.9 fL 81.0-99.0 [facility] Monocytes Auto (Bld) [#/Vol] on 10-01-2023 Monocytes (Bld) [#/Vol] 0.5 10 3/uL 0.3-0.8 [facility] Monocytes/100 WBC Auto (Bld) on 10-01-2023 Monocytes/100 WBC (Bld) 7.9 % 1.7-12.0 [facility] Neutrophils Auto (Bld) [#/Vo l]on 03-06-2024 Neutrophils (Bld) [#/Vol] 3.6 10 3/uL 1.4-6.5 [facility] Neutrophils/100 WBC Auto (Bl d)on 10-01-2023 Neutrophils/100 WBC (Bld) 58.9 % 43.0-75.0 [facility] No Panel Informationon 09-30 Eosinophils # (Auto) 0.3 10 3/uL 0.0-0.7 [facility] Folate 28.20 ng/mL 8.60-58.90 [facility] Immature Granulocyte # (Auto) 0.01 10 3/uL 0.00-0.03 [facility] Platelets Auto (Bld) [#/Vol] on 10-01-2023 Platelets (Bld) [#/Vol] 232 10 3/uL 150-450 [facility] RBC Auto (Bld) [#/Vol]on RBC (Bld) [#/Vol] 5.68 10 6/uL 4.20-5.40 [facility] RAD - CT Reporton 05-12-2023 RAD - CT Report [id number] #1.00TIFF [facility] Reminderson 05-12-2023 Reminders - From: Angela Henriquez To: EU - Recalls Lue; Sent: 05/12/2023 11:22:11 EDT Show up: 03/28/2024 11:22:00 EDT Subject: KUB/JAK Reminder/Recall to be scheduled prior to patients 1 yr follow up 05/12/24 -patient uses [facility] Ambulatory Visit Summaryon 1 Ambulatory Visit Summary JB ESTRELLA :1950 Visit Date:05/07/2023 Ambulatory Visit Instructions Your Diagnosis Mixed incontinence Nocturia Asymptomatic microscopic hematuria Ureteral stone with hydronephrosis Tests Performed Urnls Dip Stick Auto w/o Microscopy POC 06394 CT Abdomen/Pelvis w/o Contrast -- Results Pending [...] Urnls Dip Stick Auto w/o Microscopy POC 89252 (05/07/2023) Bilirubin Urine Dipstick - Negative Blood Urine Dipstick - Negative Glucose Urine Dipstick - Negative Ketones Urine Dipstick - Negative Leukocytes Urine Dipstick - Negative Nitrite Urine Dipstick - Negative Protein Urine Dipstick - Trace Specific [place] Urine Dipstick - 1.025 Urine Appearance Urine [...] people ne (more content not included)... [facility] ED Note-Physiciansoniya 05-07-20 ED Note-Physician [id number]#1.00TIFF [facility] ED Note-Physician [id number] 4#1.00TIFF [facility] Lab Reportson 05-07-2023 Lab Reports [id number] 1#1.00TIFF [facility] Patient Educationon 05-07-20 Patient Education Nephrology [...] Spinach (cooked), rhubarb, beets, sweet potatoes, and [place] chard. ? Peanuts. ? Potato chips, italian fries, and baked potatoes with skin on. ? Nuts and nut products. ? Chocolate. ? If you regularly take a diuretic medicine, make sure to eat at least 1 or 2 servings of fruits or vegetables that are high in potassium each day. These include: ? Avocado. ? Banana. ? [place], prune, carrot, or tomato juice. ? Baked [...] fish oil, or vitamin B6. ? Take cfwm-xwu-zlnfrxx and prescription medicines only as told by your health care provider. These include supplements. What foods should I limit? Limit your in (more content not included)... [facility] RAD - CT Reporton 05-07-2023 RAD - CT Report [id number] #1.00TIFF [facility] Screenson 05-07-2023 Screens [id number] #1.00TIFF [facility] Urology Office/Clinic Noteon 05-07-2023 Urology Office/Clinic Note Chief Complaint 1yr HPI Staff 1yr DX: Mixed Incontinence, Nocturia & Microscopic Hematuria *No Urology Meds Pt returned from [place] last month. Since then has gone to [facility] x2 occasions due to Kidney Stones Pt [...] hematuria (R31.21: Asymptomatic microscopic hematuria) UA at [facility] on 03/30/23 showed large blood, moderate bacteria, and trace leuks. UA at [facility] on 04/15/23 showed large blood and trace leuks. UA today is negative for blood and infection. Pt denies any visible blood in her urine. -Will continue to monitor. 4. Ureteral stone with hydronephrosis (N13.2: Hydronephrosis with renal and ureteral calculous obstruction) Pt returned from [place] last month. Since then has gone to [facility] x2 occasions due to COVID and Kidney [...] is placed, (more content not included)... [facility] Comment on above: Result Comment: Elec tronically Signed By: Ramila Pradhan MD\.br\Date and Time Signed: 05/07/23 09:20 EDT\.br\Electronically Co-Signed By: eJssica Barr\.br\Date and Time Co-Signed: 05/07/23 08:54 EDT VC INJ FOAM SCLERO W US MLTI on 12-05-2022 VC INJ FOAM SCLERO W US MLTI Patient: JB ESTRELLA Exam Date: 12/05/2022 : 1950 Gender:F Ordering : DR REINA TAN M.D. Admission #: [id number] Family : Order #: [id number] CLICK HERE TO VIEW EXAM RADIOLOGY REPORT [...] Aashish Gil M.D. on 12/05/2022 at 09:41 [facility] VC CONSULT FOLLOWUPon 2022 VC CONSULT FOLLOWUP Patient: JB ESTRELLA Exam Date: 11/28/2022 : 1950 Gender:F Ordering : DR REINA TAN M.D. Admission #: [id number] Family : Order #: [id number] CLICK HERE TO VIEW EXAM RADIOLOGY REPORT [...] Tan MD on 11/28/2022 at 08:38 Normal [facility] VC EXT VENOUS RT LIMITEDon 0 11-28-2022 VC EXT VENOUS RT LIMITED Patient: JB ESTRELLA Exam Date: 11/28/2022 : 1950 Gender:F Ordering : DR REINA TAN M.D. Admission #: [id number] Family : Order #: [id number] CLICK HERE TO VIEW EXAM RADIOLOGY REPORT [...] Reina Tan MD on 11/28/2022 at 08:17 [facility] VC INJ FOAM SCLERO W US MLTI on 11-25-2022 VC INJ FOAM SCLERO W US MLTI Patient: JB ESTRELLA Exam Date: 11/25/2022 : 1950 Gender:F Ordering : DR REINA TAN M.D. Admission #: [id number] Family : Order #: [id number] CLICK HERE TO VIEW EXAM RADIOLOGY REPORT [...] Gil M.D. on 11/25/2022 at 12:03 Normal [facility] VC CONSULT FOLLOWUPon 2022 VC CONSULT FOLLOWUP Patient: JB ESTRELLA Exam Date: 11/13/2022 : 1950 Gender:F Ordering : DR REINA TAN M.D. Admission #: [id number] Family : Order #: [id number] CLICK HERE TO VIEW EXAM RADIOLOGY REPORT [...] Gil M.D. on 11/13/2022 at 09:54 Normal [facility] VC EXT VENOUS LT LIMITEDon 0 11-13-2022 VC EXT VENOUS LT LIMITED Patient: JB ESTRELLA. Exam Date: 11/13/2022 : 1950 Gender:F Ordering : DR REINA TAN M.D. Admission #: [id number] Family : Order #: [id number] CLICK HERE TO VIEW EXAM RADIOLOGY REPORT [...] M.D. on 11/13/2022 at 09:49 Approved by: Aashihs Gil M.D. on 11/13/2022 at 09:52 [facility] VC ENDOVENOUS ABL 1ST V LTon 11-06-2022 VC ENDOVENOUS ABL 1ST V LT Patient: JB ESTRELLARafia Exam Date: 11/06/2022 : 1950 Gender:F Ordering : DR REINA TAN M.D. Admission #: [id number] Family : Order #: [id number] CLICK HERE TO VIEW EXAM RADIOLOGY REPORT [...] Gil M.D. on 11/06/2022 at 14:02 Normal [facility] VC CONSULT FOLLOWUPon 2022 VC CONSULT FOLLOWUP Patient: JB ESTRELLA Exam Date: 10/23/2022 : 1950 Gender:F Ordering : DR REINA TAN M.D. Admission #: [id number] Family : Order #: [id number] CLICK HERE TO VIEW EXAM RADIOLOGY REPORT [...] Tan MD on 10/23/2022 at 13:32 Normal [facility] VC EXT VENOUS RT LIMITEDon 0 10-23-2022 VC EXT VENOUS RT LIMITED Patient: JB ESTRELLA Exam Date: 10/23/2022 : 1950 Gender:F Ordering : DR REINA TAN M.D. Admission #: [id number] Family : Order #: [id number] CLICK HERE TO VIEW EXAM RADIOLOGY REPORT [...] Tan MD on 10/23/2022 at 10:54 Normal [facility] VC ENDOVENOUS ABL 1ST V RTon 10-18-2022 VC ENDOVENOUS ABL 1ST V RT Patient: JB ESTRELLA Exam Date: 10/18/2022 : 1950 Gender:F Ordering : DR REINA TAN M.D. Admission #: [id number] Family : Order #: [id number] CLICK HERE TO VIEW EXAM RADIOLOGY REPORT [...] MD on 10/18/2022 at 10:20 Normal [facility] CBC AUTO DIFFon 05-28-2022 BASO # 0.0 103/ul Normal 0.0-0.1 [facility] Comment on above: Performed By: #### D ATCBC ####[facility] [address] [place], [place] [address]Dr. Ольга Dacosta Basophils/100 WBC (Bld) 0.7 % Normal 0.2-2.0 [facility] Comment on above: Performed By: #### D ATCBC ####[facility] [address] [place], [place] [address]Dr. Ольга Dacosta EO # 0.3 103/ul Normal 0.0-0.7 [facility] Comment on above: Performed By: #### D ATCBC ####[facility] [address] [place], [place] [address]Dr. Ольга Dacosta Eosinophils/100 WBC (Bld) 6.1 % Normal 0.9-7.0 [facility] Comment on above: Performed By: #### D ATCBC ####[facility] [address] [place], [place] [address]Dr. Ольга Dacosta Erythrocyte distribution width (RBC) [Ratio] 16.3 % Critically high 11.0-15.0 [facility] Comment on above: Performed By: #### D ATCBC ####[facility] [address] [place], [place] [address]Dr. Ольга Dacosta Hematocrit (Bld) [Volume fraction] 39.5 % Normal 36.0-48.0 [facility] Comment on above: Performed By: #### D ATCBC ####[facility] [address] [place], [place] [address]Dr. Ольга Dacosta Hemoglobin (Bld) [Mass/Vol] 12.2 g/dL Normal 12.0-16.0 [facility] Comment on above: Performed By: #### D ATCBC ####[facility] [address] [place] [address]Dr. Nerissakathy Praneeth IG # 0.01 10e3/ul Normal 0.00-0.03 [facility] Comment on above: Performed By: #### D ATCBC ####[facility] [address] [place], [place] [address]Dr. Ольга Dacosta IG % 0.2 % Normal 0.0-0.5 [facility] Comment on above: Performed By: #### D ATCBC ####[facility] [address] [place], [place] [address]Dr. Ольга Dacosta LYMPH # 1.9 103/ul Normal 1.2-3.8 [facility] Comment on above: Performed By: #### D ATCBC ####[facility] [address] [place], [place] [address]Dr. Ольга Dacosta Lymphocytes/100 WBC (Bld) 34.8 % Normal 20.5-60.0 [facility] Comment on above: Performed By: #### D ATCBC ####[facility] [address] [place], [place] [address]Dr. Ольга Dacosta MCH (RBC) [Entitic mass] 20.4 pg Critically low 26.7-34.0 [facility] Comment on above: Performed By: #### D ATCBC ####[facility] [address] [place], [place] [address]Dr. Ольга Dacosta MCHC (RBC) [Mass/Vol] 30.9 g/dL Normal 29.9-35.2 [facility] Comment on above: Performed By: #### D ATCBC ####[facility] [address] [place], [place] [address]Dr. Ольга Dacosta MCV (RBC) [Entitic vol] 66.2 fL Critically low 81.0-99.0 [facility] Comment on above: Performed By: #### D ATCBC ####[facility] [address] [place] [address]Zw. Ольга Dacosta MONO # 0.5 103/ul Normal 0.3-0.8 [facility] Comment on above: Performed By: #### D ATCBC ####[facility] [address] [place] [address]Dr. Ольга Dacosta Monocytes/100 WBC (Bld) 9.2 % Normal 1.7-12.0 [facility] Comment on above: Performed By: #### D ATCBC ####[facility] [address] [place] [address]Dr. Ольга Dacosta NEUT # 2.7 103/ul Normal 1.4-6.5 [facility] Comment on above: Performed By: #### D ATCBC ####[facility] [address] [place], [place] [address]Dr. Ольга Dacosta Neutrophils/100 WBC (Bld) 49.0 % Normal 43.0-75.0 [facility] Comment on above: Performed By: #### D ATCBC ####[facility] [address] [place], [place] [address]Dr. Ольга Dacosta Platelet mean volume (Bld) [Entitic vol] 11.4 fL Normal 9.5-13.5 [facility] Comment on above: Performed By: #### D ATCBC ####[facility] [address] [place], [place] [address]Dr. Ольга Dacosta PLT 243 103/ul Normal 150-450 [facility] Comment on above: Performed By: #### D ATCBC ####[facility] [address] [place], [place] [address]Dr. Ольга Dacosta RBC 5.97 106/ul Critically high 4.20-5.40 [facility] Comment on above: Performed By: #### D ATCBC ####[facility] [address] [place], [place] [address]Dr. Ольга Dacosta WBC 5.5 103/ul Normal 4.0-11.0 [facility] Comment on above: Performed By: #### D ATCBC ####[facility] [address] [place], [place] [address]Dr. Ольга Dacosta JERMAN - TSHon 05-28-2022 TSH 1.495 uIU/mL Normal 0.358-3.740 [facility] Comment on above: Performed By: #### JERMAN VORABMP ####[facility] [address] [place] [address]Dr. Ольга Dacosta TSH RANGE SEE BELOW Normal [facility] Comment on above: Result Comment: <0.3 4 UIU/ml HYPERTHYROID 0.34-5.60 UIU/ml EUTHYROID >5.60 UIU/ml HYPOTHYROID Performed By: #### JERMAN VORABMP ####[facility] [address] [place] [address]Dr. Ольга Dacosta JERMAN- BMP WITH LIPIDon 2021 Anion gap [Moles/Vol] 10.3 mmol/L Normal [facility] Comment on above: Performed By: #### FAUSTINO VORAP ####[facility] [address] [place] [address]Dr. Ольга Dacosta Calcium [Mass/Vol] 9.1 mg/dL Normal 8.5-10.1 [facility] Comment on above: Performed By: #### FAUSTINO VORAP ####[facility] [address] [place] [address]Dr. Ольга Dacosta Chloride [Moles/Vol] 104 mmol/L Normal 98-107 [facility] Comment on above: Performed By: #### JERMAN VORABMP ####[facility] [address] [place] [address]Dr. Ольга Dacosta Cholesterol [Mass/Vol] 162 mg/dL Normal <=200 [facility] Comment on above: Performed By: #### JERMAN VORABMP ####[facility] [address] [place] [address]Dr. Ольга Dacosta Cholesterol in HDL [Mass/Vol] 59 mg/dL Normal 40-60 [facility] Comment on above: Performed By: #### Elke BALDERRAMA DATBMP ####[facility] [address] [place] [address]Dr. Ольга Dacosta Cholesterol in LDL [Mass/Vol] 88.0 mg/dL Normal [facility] Comment on above: Performed By: #### Elke BALDERRAMA DATBMP ####[facility] [address] [place] [address]Dr. Ольга Dacosta CO2 [Moles/Vol] 29.1 mmol/L Normal 21.0-32.0 [facility] Comment on above: Performed By: #### Elke BALDERRAMA DATBMP ####[facility] [address] [place] [address]Dr. Ольга Dacosta Creatinine [Mass/Vol] 0.59 mg/dL Normal 0.55-1.02 [facility] Comment on above: Performed By: #### Elke BALDERRAMA DATBMP ####[facility] [address] [place], [place] [address]Dr. Ольга Dacosta EGFR-AF [place] >60 Normal >=60 [facility] Comment on above: Performed By: #### Elke BALDERRAMA DATBMP ####[facility] [address] [place] [address]Dr. Ольга Praneeth EGFR-NON AF [place]IZ[place] >60 Normal >=60 [facility] Comment on above: Performed By: #### Elke BALDERRAMA DATBMP ####[facility] [address] [place] [address]Dr. Nerissakathy Dacosta Glucose [Mass/Vol] 100 mg/dL Normal 74-106 [facility] Comment on above: Performed By: #### Elke BALDERRAMA, DATBMP ####[facility] [address] [place], [place] [address]Dr. Nerissakathy Dacosta HDL NORMAL > or = 60 mg/dl - LOW CARDIOVASCULAR RISK <40 mg/dl - HIGH CARDIOVASCULAR RISK Normal [facility] Comment on above: Performed By: #### D ATTERIC, DATBMP ####[facility] [address] [place] [address]Dr. Nerissakathy Praneeth LDL CALC NORMAL SEE BELOW Normal [facility] Comment on above: Result Comment: <100 mg/dl OPTIMAL 100 - 129 mg/dl NEAR OR ABOVE OPTIMAL 130 - 159 mg/dl BORDERLINE HIGH 160 - 189 mg/dl HIGH >190 mg/dl VERY HIGH Performed By: #### Elke BALDERRAMA DATBMP ####[facility] [id number] [place] [address]Dr. Ольга Dacosta Potassium [Moles/Vol] 4.4 mmol/L Normal 3.5-5.1 [facility] Comment on above: Performed By: #### Elke BALDERRAMA DATBMP ####[facility] [address] [place] [address]Dr. Ольга Dacosta Sodium [Moles/Vol] 139 mmol/L Normal 136-145 [facility] Comment on above: Performed By: #### JERMAN VORABMP ####[facility] [address] [address]Dr. Ольга Dacosta Triglyceride [Mass/Vol] 75 mg/dL Normal <=150 [facility] Comment on above: Performed By: #### FAUSTINO VORAP ####[facility] [address] [place] [address]Dr. Ольга Dacosta Urea nitrogen [Mass/Vol] 25.0 mg/dL Critically high 7.0-18.0 [facility] Comment on above: Performed By: #### Elke BALDERRAMA DATBMP ####[facility] [address] [place] [address]Dr. Ольга Dacosta Urea nitrogen/Creatinine [Mass ratio] 42.4 mg/mg Normal [facility] Comment on above: Performed By: #### Elke BALDERRAMA DATBMP ####[facility] [address] [place] [address]Dr. Ольга Dacosta VLDL CALC 15.0 mg/dL Normal [facility] Comment on above: Performed By: #### Elke BALDERRAMA DATBMP ####[facility] [address] [place] [address]Dr. Ольга Dacosta VC COMP CONSULTATIONon 02-28 VC COMP CONSULTATION Patient: JB ESTRELLA Exam Date: 02/28/2022 : 1950 Gender:F Ordering : DR REINA TAN M.D. Admission #: [id number] Family : Order #: [id number] CLICK HERE TO VIEW EXAM RADIOLOGY REPORT [...] arterial disease 5. CEAP: C3, EC, AP, LA PLAN: 1. Continued use of compression stockings [...] M.D. on 02/28/2022 at 13:38 Normal [facility] VC VENOUS REFLUX TITA LMTon 0 02-28-2022 VC VENOUS REFLUX TITA LMT Patient: JB ESTRELLA Exam Date: 02/28/2022 : 1950 Gender:F Ordering : DR REINA TAN M.D. Admission #: [id number] Family : Order #: [id number] CLICK HERE TO VIEW EXAM RADIOLOGY REPORT [...] chronic thrombus visualized Compressibility: Normal Flow: Normal Materials Associate: Dist/med calf 3.2mm with 0s reflux. Mid/med [...] Gil M.D. on 02/28/2022 at 09:48 Normal [facility] MG MAMM SCREEN 3D TITA CADon 01-21-2022 MG MAMM SCREEN 3D TITA CAD Patient: JB ESTRELLA Exam Date: 01/21/2022 : 1950 Gender:F Ordering : DR ALDEN JAMISON DSophy Admission #: [id number] Family : Order #: [id number] CLICK HERE TO VIEW EXAM RADIOLOGY REPORT [...] lung cancer at age 61. LOCATION: [facility] BREAST COMPOSITION: Scattered areas fibroglandular density. [...] MD on 01/21/2022 at 14:35 Normal [facility] URINALYSISOrdered By: Danielle de la rosa [...] Interpretation Code Negative [facility] UA Auto SS [place].plasma/Lithiu m.RBC (Bld) [Mass ratio] 4-20 /HPF Normal 0-3/HPF [facility] UA Auto SS Nitrite Ql (U) Negative (12/12/21 11:49 AM) Normal Negative [facility] UA Auto SS pH (U) 5.5 *NA* (12/12/21 11:49 AM) Invalid Interpretation Code 5.0 - 9.0 [facility] Auto SS Protein (U) [Mass/Vol] Negative (12/12/21 11:49 AM) Normal Negative [facility] UA Auto SS Specific gravity (U) [Rel density] >=1.030 *NA* (12/12/21 11:49 AM) Invalid Interpretation Code 1.005 - 1.030 [facility] UA Auto SS UA Spec Desc Clean Catch (12/12/21 11:49 AM) Normal [facility] Auto SS Urobilinogen Qn (U) 0.3661029 {Cortez'U}/dL Normal 0.0 - 1.0 EU/dL [facility] UA Auto SS WBC Auto Ql (U) Negative (12/12/21 11:49 AM) Normal Negative [facility] UA Auto SS WBC LM.HPF (Urine sed) [#/Area] 0-5 /HPF Normal 0-5/HPF [facility] UA Auto SS Vital Signs Date Time Vital Sign Value Performing Clinician Facility 03-24-2024 10:06-0400 Body height 162.56 cm [facility] 03-24-2024 10:06-0400 Body mass index (BMI) [Ratio] 36.4 kg/m2 [facility] 03-24-2024 10:06-0400 Body weight 96.27 kg [facility] 03-24-2024 10:06-0400 Diastolic blood pressure 82 mm[Hg] [facility] 03-24-2024 10:06-0400 Heart rate 77 /min [facility] 03-24-2024 10:06-0400 Respiratory rate 12 /min [facility] 03-24-2024 10:06-0400 Systolic blood pressure 136 mm[Hg] [facility] 03-10-2024 14:58-0400 Body height 162.56 cm [facility] 03-10-2024 14:58-0400 Body mass index (BMI) [Ratio] 36.7 kg/m2 [facility] 03-10-2024 14:58-0400 Body weight 97.06 kg [facility] 03-10-2024 14:58-0400 Diastolic blood pressure 75 mm[Hg] [facility] 03-10-2024 14:58-0400 Heart rate 84 /min [facility] 03-10-2024 14:58-0400 Respiratory rate 12 /min [facility] 03-10-2024 14:58-0400 Systolic blood pressure 114 mm[Hg] [facility] 11-11-2023 15:50-0400 Body height 162.56 cm [facility] 11-11-2023 15:50-0400 Body mass index (BMI) [Ratio] 36.7 kg/m2 [facility] 11-11-2023 15:50-0400 Body weight 97.12 kg [facility] 11-11-2023 15:50-0400 Diastolic blood pressure 84 mm[Hg] [facility] 11-11-2023 15:50-0400 Heart rate 73 /min [facility] 11-11-2023 15:50-0400 Respiratory rate 12 /min [facility] 11-11-2023 15:50-0400 Systolic blood pressure 132 mm[Hg] [facility] 05-07-2023 08:03-0400 Blood Pressure Location Ramila Lue [facility] 05-07-2023 08:03-0400 Diastolic blood pressure 73 mm[Hg] Ramila Lue [facility] 05-07-2023 08:03-0400 Heart rate 70 /min Armila Lue [facility] 05-07-2023 08:03-0400 Respiratory rate 16 /min Ramila Lue [facility] 05-07-2023 08:03-0400 Systolic blood pressure 127 mm[Hg] Ramila Lue [facility] 04-22-2023 08:45-0400 Body height 162.56 cm Alden Ball Other [facility] [employer] Other 04-22-2023 08:45-0400 Body mass index (BMI) [Ratio] 36.8 kg/m2 Alden Ball Other [facility] Other 04-22-2023 08:45-0400 Body weight 97.25 kg Alden Ball Other [facility] Other 04-22-2023 08:45-0400 Diastolic blood pressure 83 mm[Hg] Alden Ball Other [facility] Other 04-22-2023 08:45-0400 Respiratory rate 12 /min Alden Ball Other [facility] Other 04-22-2023 08:45-0400 Systolic blood pressure 135 mm[Hg] Alden Ball Other [facility] Other 12-30-2022 08:45-0400 Body height 162.56 cm Alden Ball Other [facility] Other 12-30-2022 08:45-0400 Body mass index (BMI) [Ratio] 37.35 kg/m2 Alden Ball Other [facility] Other 12-30-2022 08:45-0400 Body weight 98.7 kg Alden Ball Other [facility] Other 12-30-2022 08:45-0400 Diastolic blood pressure 74 mm[Hg] Alden Ball Other [facility] Other 12-30-2022 08:45-0400 Respiratory rate 12 /min Alden Ball Other [facility] Other 12-30-2022 08:45-0400 Systolic blood pressure 121 mm[Hg] Alden Ball Other [facility] Other 11-01-2022 10:30-0400 Body height 162.56 cm Alden Ball Other [facility] Other 11-01-2022 10:30-0400 Body mass index (BMI) [Ratio] 37.72 kg/m2 Alden Ball Other [facility] Other 11-01-2022 10:30-0400 Body weight 99.7 kg Alden Ball Other [facility] Other 11-01-2022 10:30-0400 Diastolic blood pressure 72 mm[Hg] Alden Ball Other [facility] Other 11-01-2022 10:30-0400 Respiratory rate 12 /min Alden Ball Other [facility] Other 11-01-2022 10:30-0400 Systolic blood pressure 122 mm[Hg] Alden Ball Other [facility] Other 05-01-2022 08:17-0400 Blood Pressure Location Ramila Lue [facility] 05-01-2022 08:17-0400 Diastolic blood pressure 80 mm[Hg] Ramila Lue [facility] 05-01-2022 08:17-0400 Heart rate 74 /min Ramila Lue [facility] 05-01-2022 08:17-0400 Systolic blood pressure 132 mm[Hg] Ramila Lue [facility] 12-12-2021 11:07-0400 Blood Pressure Location Ramila Lue [facility] 12-12-2021 11:07-0400 Diastolic blood pressure 83 mm[Hg] Ramila Lue [facility] 12-12-2021 11:07-0400 Heart rate 69 /min Ramila Lue [facility] 12-12-2021 11:07-0400 Respiratory rate 16 /min Ramila Lue [facility] 12-12-2021 11:07-0400 Systolic blood pressure 135 mm[Hg] Ramila Lue [facility] Encounters Encounter Date Encounter Type Care Provider Facility Start: 05-12-2024 ambulatory Ramila Pradhan Facility:[facility] Start: 04-14-2024 End: 04-14-2024 ambulatory CLAY TORRES Not Available Start: 04-13-2024 End: 04-13-2024 ambulatory ADRIANA BRICENO Not Available Start: 03-31-2024 End: 03-31-2024 ambulatory DEANA B APLING Not Available Start: 03-24-2024 End: 03-24-2024 ambulatory [facility] Work Phone: Start: 03-24-2024 End: 03-24-2024 Patient encounter procedure [facility] Work Phone: Start: 03-10-2024 End: 03-10-[address] [facility] Work Phone: Start: 03-10-2024 End: 03-10-2024 Patient encounter procedure [facility] Work Phone: Start: 02-16-2024 End: 02-16-2024 ambulatory DEANA B APLING Not Available Start: 01-27-2024 End: 01-27-2024 ambulatory ADRIANA BRICENO Not Available Start: 12-19-2023 End: 12-19-2023 ambulatory CLAY TORRES Not Available Start: 12-16-2023 End: 12-16-2023 ambulatory ADRIANA A KAITY Not Available Start: 12-09-2023 End: 12-09-2023 ambulatory ADRIANA A KAITY Not Available Start: 12-05-2023 End: 12-05-2023 ambulatory [facility] Start: 12-02-2023 End: 12-02-2023 ambulatory ADRIANA A KAITY Not Available Start: 11-11-2023 End: 11-11-2023 ambulatory [facility] Work Phone: Start: 11-11-2023 End: 11-11-2023 Patient encounter procedure [facility] Work Phone: Start: 10-30-2023 End: 10-30-2023 ambulatory ADRIANA BRICENO Not Available Start: 10-01-2023 Non-patient / Non-visit [facility] Work Phone: Start: 09-30-2023 Non-patient / Non-visit [facility] Work Phone: Start: 09-25-2023 Non-patient / Non-visit [facility] [employer] Work Phone: Start: 06-25-2023 End: 06-25-2023 ambulatory DEANA LOMAS Not Available Start: 06-10-2023 End: 06-10-2023 ambulatory Alden Jamison Other [employer] Other Start: 06-10-2023 Telephone encounter Alden Ball [facility] Start: 06-09-2023 End: 06-09-2023 ambulatory GAIL NAVA Not Available Start: 05-07-2023 End: 05-08-2023 ambulatory Ramila Pradhan Facility:[facility] Start: 05-07-2023 End: 05-07-2023 Patient encounter procedure Ramila Pradhan [facility] Start: 04-22-2023 End: 04-22-2023 ambulatory Alden Jamison Other [employer] Other Start: 04-22-2023 Office outpatient visit 15 minutes Alden Shaheen [facility] Start: 02-03-2023 End: 02-03-2023 ambulatory Alden Jamison Other [facility] Other Start: 02-03-2023 Telephone encounter Alden Ball [facility] Start: 01-24-2023 End: 01-24-2023 ambulatory Alden Ball Other [facility] Other Start: 01-24-2023 Telephone encounter Alden Ball [facility] Start: 01-08-2023 End: 01-08-2023 ambulatory Alden Ball Other [facility] Other Start: 01-08-2023 Telephone encounter Alden Ball [facility] Start: 12-30-2022 End: 12-30-2022 ambulatory Alden Ball Other [facility] Other Start: 12-30-2022 Office outpatient visit 15 minutes Alden Jamison [facility] Start: 12-12-[address] ALDEN JAMISON Facili ty:[facility] Start: 12-05-2022 End: 12-06-[address] REINA TAN Facility:[facility] Start: 11-28-2022 End: 11-29-[address] REINA TAN Facility:[facility] Start: 11-25-2022 End: 11-26-[address] REINA TAN Facility:[facility] Start: 11-13-2022 End: 11-14-[address] REINA TAN Facility:[facility] Start: 11-06-2022 End: 11-07-[address] REINA TAN Facility:[facility] Start: 11-04-2022 End: 11-04-2022 ambulatory Alden Jamison Other [employer] Other Start: 11-04-2022 Telephone encounter Alden Jamison [facility] Start: 11-01-2022 End: 11-01-2022 ambulatory Alden Jamison Other [employer] Other Start: 11-01-2022 Office outpatient visit 15 minutes Alden Jamison [facility] Start: 10-23-2022 End: 10-24-[address] REINA TAN Facility:[facility] Start: 10-18-2022 End: 10-19-[address] REINA TAN Facility:[facility] Start: 05-28-2022 End: 05-29-[address] DOCTOR JUAN Facility:[facility] Start: 05-27-2022 End: 05-28-[address] DOCTOR JUAN Facility:[facility] Start: 05-01-2022 End: 05-01-2022 Patient encounter procedure Ramila Pradhan [facility] Start: 02-28-2022 End: 03-01-[address] REINA TAN Facility:[facility] Start: 01-22-2022 End: 01-22-2022 Patient encounter procedure Ed Kramer Jr. [facility] Start: 01-21-2022 End: 01-22-[address] ALDEN JAMISON Facility:[facility] Start: 12-12-2021 End: 12-12-2021 Lab Drop off Ramila Pradhan [facility] Start: 12-12-2021 End: 12-12-2021 Patient encounter procedure Ramila Pradhan [facility] Procedures Date Procedure Procedure Detail Performing Clinician Start: 2020 Cataract extraction and insertion of intraocular lens Ramila Pradhan Start: 03-21-2020 Cataract extraction and insertion of intraocular lens Ramila Pradhan Cholecystectomy Ramila Pradhan Procedure on knee Ramila Pradhan Plan of Treatment Date Care Activity Detail Author Start: 11-11-2023 Patient referral [facility] Work Phone: Patient referral [facility] Work Phone: Lower extremity vein - left [facility] Immunizations Immunization Date Immunization Notes Care Provider Fa ciliviki 04-22-2023 influenza virus vaccine, unspecified formulation [facility] 04-22-2023 influenza, high dose seasonal, preservative-free Alden Jamison Other [employer] Other 12-30-2022 zoster vaccine recombinant Alden Jamison Other [facility] 05-27-2022 influenza virus vaccine, split virus (incl. purified surface antigen) Alden Jamison Other [employer] Other 05-27-2022 influenza virus vaccine, unspecified formulation [facility] 06-30-2021 SARS-CoV-2 (COVID-19 ) Ad26 vaccine, recombinant Ramila Pradhan [facility] Comment on above: Result Comment: 2021: [id number] 05-25-2021 influenza virus vaccine, split virus (incl. purified surface antigen) Alden Jamison Other [facility] Other 05-25-2021 influenza virus vaccine, unspecified formulation Ramila Lue [facility] 09-29-2020 COVID-19 vaccine, vector-nr, rS-Ad26, PF, 0.5 mL; Translations: [Susana COVID-19 Vaccine] Ramila Lue [facility] Comment on above: Reason for Medicatio n: Prophylaxis 05-08-2020 influenza virus vaccine, split virus (incl. purified surface antigen) Alden Jamison Other [facility] Other 05-08-2020 influenza virus vaccine, unspecified formulation Ramila Lue [facility] 05-18-2019 influenza virus vaccine, split virus (incl. purified surface antigen) Alden Jamison Other [facility] Other 05-18-2019 influenza virus vaccine, unspecified formulation [facility] 05-06-2018 influenza virus vaccine, split virus (incl. purified surface antigen) Alden Jamison Other [facility] Other 05-06-2018 influenza virus vaccine, unspecified formulation Ramila Lue [facility] 04-24-2017 influenza virus vaccine, split virus (incl. purified surface antigen) Alden Jamison Other [facility] Other 04-24-2017 influenza virus vaccine, unspecified formulation Ramila Lue [facility] 04-01-2017 influenza virus vaccine, unspecified formulation Ramila Lue [facility] 05-28-2016 pneumococcal polysaccharide vaccine, 23 valent Ramila Lue [facility] 04-22-2016 influenza virus vaccine, split virus (incl. purified surface antigen) Alden Jamison Other [facility] Other 04-22-2016 influenza virus vaccine, unspecified formulation Ramila Lue [facility] 04-22-2016 pneumococcal conjuga te vaccine, 13 valent Ramila Lue [facility] 04-28-2015 influenza virus vaccine, split virus (incl. purified surface antigen) Alden Jamison Other [facility] Other 04-28-2015 influenza virus vaccine, unspecified formulation [facility] 04-19-2015 pneumococcal conjuga te vaccine, 13 valent Alden Jamison Other [facility] Payers Date Payer Category Payer Unknown [id number] 2.16.8 [id number] 2020 Unknown [id number] 1959 Medicare [id number] 2.1 [id number] 1959 Self-pay [id number] 1959 Unknown [id number] 1950 Unknown [id number] 2.16.84 0.1.119482.3.579.2.593 1950 Unknown [id number] 2.16.84 0.1.024200.3.579.2.593 - Unknown [id number] 2.16.84 0.1.944405.3.579.2.593 1950 Unknown [id number] 2.16.84 0.1.134904.3.579.2.593 1949 Unknown [id number] 2.16.84 0.1.787053.3.579.2.593 1949 Unknown [id number] 2.16.84 0.1.511584.3.579.2.593 1949 Unknown [id number] 2.16.84 0.1.761555.3.579.2.593 1949 Unknown [id number] 2.16.84 0.1.365834.3.579.2.593 1949 Unknown [id number] 2.16.84 0.1.735282.3.579.2.593 1949 Unknown [id number] 2.16.84 0.1.639717.3.579.2.593 1949 Unknown [id number] 2.16.8 40.1.179819.3.579.2.727 1949 Unknown [id number] 2.16.8 40.1.086688.3.579.2.727 1949 Unknown [id number] 2.16.8 40.1.187647.3.579.2.1286 1949 Unknown [id number] 2.16.84 0.1.629827.3.579.2.1259 1949 Unknown [id number] 2.16.84 0.1.845450.3.579.2.1259 1949 Unknown [id number] 2.16.84 0.1.741952.3.579.2.1259 1949 Unknown [id number] 2.16.84 0.1.007394.3.579.2.1259 1949 Unknown [id number] 2.16.84 0.1.015740.3.579.2.1258 1949 Unknown [id number] 2.16.84 0.1.207050.3.579.2.1259 1950 Unknown [id number] 2.16.84 0.1.602300.3.579.2.1258 1950 Unknown [id number] 2.16.84 0.1.570342.3.579.2.1258 1949 Unknown [id number] 2.16.84 0.1.892451.3.579.2.1258 1949 Unknown [id number] 2.16.84 0.1.069909.3.579.2.1258 1949 Unknown [id number] 2.16.84 0.1.437954.3.579.2.1258 1949 Unknown [id number] 2.16.840 .1.168595.3.579.2.1258 1950 Unknown [id number] 2.16.840. 1.107186.3.579.2.1259 Unknown [id number] 2.16.84 0.1.227199.3.579.2.593 Unknown [id number] 2.16.84 0.1.971620.3.579.2.593 Social History Date Type Detail Facility Start: 12-12-2021 End: 05-07-2023 Tobacco smoking status Ex-smoker (finding) [facility] Sex Assigned At Female [facility] Tobacco smoking status Never [facility] Start: 1950 Sex Assigned At Female F [facility] Medical Equipment Procedure Code Equipment Code Equipment Origin al Text Equipment Identifier Dates {[id number] Start: 03-21-2020 {[id number] FDA Start: 2020 Functional Status Date Assessment Result Facility 05-07-2023 Functional Status N/A [facility] 05-01-2022 Functional Status N/A [facility] Clinical Notes 12-12-2021 to 05-07-2023 Note [...] include: ?8 oz (237 mL) of milk, zwsvpta-kpovlbapsvwx-upanm milk, and calcium-fortifiedfruit juice. Calcium-fortified means that [...] ?Spinach (cooked), rhubarb, beets, sweet potatoes, and Honduran chard. ?Peanuts. ?Potato chips, italian fries, and baked potatoes with skin on. ?Nuts and nut products. ?Chocolate. If you regularly take a diuretic medicine, make sure to eat at least 1 or 2 servings of fruits or vegetables that are high in potassium each day. These include: ?Avocado. ?Banana. ?[place], prune, carrot, or tomato juice. ?Baked potato. [...] magnesium, fish oil, or vitamin B6. Take rvgf-pmk-fydrwff and prescription medicines only as told by [...] Casseroles. Pizza. Lasagna. Frozen meals. Potato chips. Armenian fries. The items listed above may not [...] provider. Document Revised: 03/25/2022 Document Reviewed: 03/25/2022 [employer] Patient Education 2022 [employer]. Follow Up Care 05/01/2022 08:32:42 With:Lorne GONZALEZ, TEDDY Gonzalez, URO Address: When: Unknown Comments:Gerald Barragan Ureteroscopy/LaserLitho [facility] 04-22-2023 Evaluation note Encounter Date Diagnosis Assessment Notes Mar, Acute left-sided low back pain without sciatica (ICD-10 - M54.50) Push fluids ER or call office w/ recurrent flank pain or hematuria Mar, Gross hematuria (ICD-10 - R31.0) Push fluids CT abd/pelvis to r/o renal tumor, renal stone, hydronephrosis f/u for hematuria evaluation [facility] Other 06-05-2023 Evaluation note* Encounter Date Diagnosis Assessment Notes Treatment Notes Treatment Clinical Notes Dec, Cervical spondylosis (ICD-10 - M47.812) ROM exercises, ice/heat and rest. Begin NSAIDs and muscles relaxant at night. PT if no improvement. XR Dec, Torticollis (ICD-10 - M43.6) Heat/ice and NSAIDs/muscle relaxant. PT if no improvement Dec, Dry mouth (ICD-10 - R68.2) Push water, lozenges [facility] Other 04-07-2023 Evaluation note* Encounter Date Diagnosis [...] Tylenol and Motrin. ROM exercises, Voltaren Gel [facility] Other 10-05-2022 Hospital Discharge instructions Patient Education [...] 06/30/2013 Document Revised: 03/03/2019 Document Reviewed: 03/03/2019 [employer] Patient Education 2020 [employer]. 05/01/2022 08:20:59 Calorie Counting for Weight Loss [...] 07/14/2006 Document Revised: 04/02/2019 Document Reviewed: 06/13/2017 [employer] Patient Education 2020 [employer] Follow Up Care 12/12/2021 12:13:24 With:Lorne GONZALEZ, TEDDY Gonzalez, URO Address: When:Within 1 Year(s) [facility] 05-18-2022 Hospital Discharge instructions Patient Education [...] Follow these instructions at home: Medicines Take dyiy-kjk-anczjyh and prescription medicines only as told by [...] or the blood stops without treatment. Take wkgg-fck-kptzzyh and prescription medicines only as told by your health care provider. Drink enough fluid to keep your urine clear or pale yellow. This information is not intended to replace advice given to you by your health care provider. Make sure you discuss any questions you have with your health care provider. Document Released: 07/14/2006 Document Revised: 12/08/2019 Document Reviewed: 08/16/2017 [employer] Patient Education 2020 [employer]. Follow Up Care 06/06/2021 10:30:38 With:Ramila Pradhan MD, URL, URO Address: When:3 months [facility] evaluation + Plan note Future Appointments Appointment Date:12/21/2021 07:30:00 AM Scheduled Provider: Location:.[place]ICAL [place] Appointment Type:PT Pelvic Floor/UI Eval (FT) Appointment Date:05/01/2022 08:00:00 AM Scheduled Provider:Ramila Pradhan MD Location:[facility] Appointment Type:URO Office Visit [facility] evaluation + Plan note Future Appointments Appointment Date:12/21/2021 07:30:00 AM Scheduled Provider: Location:.[place] Appointment Type:PT Pelvic Floor/UI Eval (FT) Appointment Date:05/01/2022 08:00:00 AM Scheduled Provider:Ramila Pradhan MD Location:[facility] Appointment Type:URO Office Visit Diagnostic Tests Pending * [facility] Appointment Date:02/06/2022 11:15:00 AM Scheduled Provider: Location:[place] Appointment Type:PT Pelvic Floor/UI Re-Eval (FT) Appointment Date:02/25/2022 07:00:00 AM Scheduled Provider: Location:.[place] Appointment Type:PT Pelvic Floor/UI (FT) Appointment Date:03/04/2022 07:00:00 AM Scheduled Provider: Location:[place] Appointment Type:PT Pelvic Floor/UI (FT) Appointment Date:03/11/2022 07:00:00 AM Scheduled Provider: Location:.[place] Appointment Type:PT Pelvic Floor/UI (FT) Appointment Date:03/18/2022 08:30:00 AM Scheduled Provider[facility] Appointment Type:PT Pelvic Floor/UI Re-Eval () Appointment Date:05/01/2022 08:00:00 AM Scheduled Provider:Ramila Pradhan MD Location:[facility] Appointment Type:URO Office Visit [facility] evalmreiqo + Plan note Future Appointments Appointment Date:05/07/2023 08:00:00 AM Scheduled Provider:Ramila Pradhan MD Location:[facility] Appointment Type:URO Office Visit [facility] evaljqfpfy noteNo InformationNort Work [employer] Other Evaluation noteNo assessment information available [facility] Work Phone: Evaluation note* Diagnosis Onset Date Resolution Status Rectal bleeding acute Trapezius muscle strain none active Neck pain noneactive [facility] Work Phone: Evaluation note* Diagnosis Onset Date Resolution Status Chronic venous insufficiency acute Primary osteoarthritis of both knees acute Left leg swelling noneactive [facility] Work Phone: Evaluation note* Diagnosis Onset Date Resolution Status Chronic venous insufficiency acute Primary osteoarthritis of both knees acute Left leg swelling noneactive Chronic venous insufficiency acute DVT (deep venous thrombosis) acute Primary osteoarthritis of both knees acute Left leg swelling noneactive [facility] Work Phone: Hiszxgc general Narrative - Reported* Type Description Date [...] History COLONOSCOPY Hospitalization History SEE SURGICAL HX [facility] [employer] Other Hospital course Narrative No data available for this section [facility] Hospital Discharge instructions No data available for this section [facility] Orders* Referral to General Surgery Location: None Selected [facility] Work Phone: Progress note No data available for this section [facility] Summary Purpose Family History No Family [...] osteoarthritis of both knees Left leg swelling Chief Complaint left leg swelling 2 week follow up Reason for Visit Chronic venous insuf ficiency Primary osteoarthritis of both knees Left leg swelling Chronic venous insufficiency DVT (deep venous thrombosis) Primary osteoarthritis of both knees Left leg swelling Additional Source Comments Care Team (unrecognized sect ion and content) Team Status: Active Member Role Status Dates Alden Jamison DO Primary Care Provider Active Team Status: Inactive Member Role Status Melissa Jamison DO Primary [...] 2023 Team Status: Inactive Member Role Status Melissa Jamison DO Primary Care Provide r, Attending Provider Active Start: November 11, 2023 End: November 11, 2023 Team Status: Inactive Member Role Status Dates Alden Ball , DO Primary Care Provide r, Attending Provider Active Start: March 24, 2024 End: March 24, 2024 REASON FOR VISIT (unrecogniz ed section and content) FELL HURT SHOULDER AND NECKU pdateNeck PainXray resultsMammogram resultsmedication questionTBHLab results INFORMATION SOURCE (unrecogn ized section and content) DATE CREATED AUTHOR 12/12/2022 [facility] DATE CREATED AUTHOR AUTHOR'S ORGANIZ ATION 05/13/2023 [facility] DATE CREATED AUTHOR AUTHOR'S ORGANIZ ATION 12/07/2023 [facility] DATE CREATED AUTHOR AUTHOR'S ORGANIZ ATION 04/15/2024 [facility] EPIC Goals (unrecognized section and [...] BE BASED ON THE PRIMARY CLINICAL RECORDS. [employer] provides no warranty or guarantee of the accuracy or completeness of information in this document.
== END 2024-05-07 09:56 | disposition home or self-care (01) ==
LOC: US 09:55
PROVIDERS: PCP Internal Medicine; Visit Provider Urology
DX: N20.0 Calculus of kidney (principal)
CPT/HCPCS: 74018; 76775

== ENCOUNTER 2024-06-07 10:54 | Outpatient (OUT) | payer MEDICARE, OTHER, SELFPAY ==
--- NOTE | 2024-06-07 | US_ITS ---
The [address] [address] Patient Name: JB ESTRELLA MRN: [id number] date: 1950 Sex: F Assigned Patient Location: [place] Current Patient Location: [place] Accession/Order Number: [id number] Exam Date: 06/07/2024 11:29 Report Date: 06/07/2024 14:26 At the request of: TAHIR WHEELER Procedure: US venous doppler LE LT CLINICAL DATA: Evaluate for venous thrombosis. PROCEDURE: Left lower extremity venous duplex ultrasound. TECHNIQUE: [place]-scale, color flow, and waveform spectral analysis was performed of the left lower extremity. FINDINGS: The left common femoral, profunda femoral, femoral, and popliteal veins were compressible. The saphenous vein was compressible. No venous thrombosis was seen. The veins fill with color Doppler. Augmentation was normal. US/US venous doppler LE LT IMPRESSION: 1. No acute lower extremity deep venous thrombosis. 2. No superficial venous thrombosis. Electronically authenticated by: Sd SILVA Date: 06/07/2024 14:26
== END 2024-06-07 10:55 | disposition home or self-care (01) ==
LOC: US 10:54
PROVIDERS: PCP Internal Medicine; Visit Provider Internal Medicine
DX: I82.462 Acute embolism and thrombosis of left calf muscular vein (principal)
CPT/HCPCS: 93971

== ENCOUNTER 2024-12-21 14:50 | Outpatient (RCR) | payer MEDICARE, OTHER, SELFPAY | END 2025-01-18 11:46 | disposition home or self-care (01) | LOC: PT 14:50 | PROVIDERS: PCP Internal Medicine; Visit Provider Orthopaedic Surgery | DX: Z47.1 Aftercare following joint replacement surgery (principal); Z96.652 Presence of left artificial knee joint | CPT/HCPCS: 97110; 97112; 97116; 97161; 97530 ==

== ENCOUNTER 2025-02-04 14:29 | Outpatient (OUT) | payer MEDICARE, OTHER, SELFPAY ==
--- NOTE | 2025-02-04 15:05 | MM_ITS ---
Patient Name: JB ESTRELLA MR#: [id number] : 1950 Exam Date: 02/04/2025 Ordering Doctor: DR TAHIR WHEELER D.O. RADIOLOGY REPORT PROCEDURE: MM TOMOSYNTHESIS SCREENING BI COMPARISON: MM TOMOSYNTHESIS SCREENING BI, 02/02/2024. MM TOMOSYNTHESIS SCREENING BI, 01/24/2023. MG MAMM SCREEN 3D TITA CAD, 01/21/2022. MG MAMM TITA SCRN W CAD DIG, 12/01/2013. INDICATIONS: Screeening Calculator Name NCI Breast Cancer Risk Assessment Tool 5 Year Breast Cancer Risk 3.70% Lifetime Breast Cancer Risk 7.90% Personal Breast Cancer No Personal Ovarian Cancer No Treatments None Family Cancers Sister with breast cancer at age 51; Mother with lung cancer at age 62. LOCATION: [facility] BREAST COMPOSITION: There are scattered areas of fibroglandular density. FINDINGS: RIGHT BREAST: No significant suspicious finding. Benign-appearing calcifications are present. Benign-appearing lymph nodes are noted along chest wall. Similar focal asymmetries are present. LEFT BREAST: No significant suspicious finding. Benign-appearing calcifications are present. Benign-appearing lymph nodes are noted along chest wall. Similar focal asymmetries are present. DIAGNOSTIC CATEGORY 2--BENIGN FINDING: RECOMMENDATIONS: ROUTINE MAMMOGRAM AND CLINICAL EVALUATION IN 12 MONTHS. PLEASE NOTE: A NORMAL MAMMOGRAM DOES NOT EXCLUDE THE POSSIBILITY OF BREAST CANCER. A CLINICALLY SUSPICIOUS PALPABLE LUMP SHOULD BE BIOPSIED. Dictated by: Ramírez Galicia MD on 02/04/2025 at 15:55 Approved by: Ramírez Galicia MD on 02/04/2025 at 16:03
== END 2025-02-04 14:30 | disposition home or self-care (01) ==
LOC: MAMMO 14:29
PROVIDERS: PCP Internal Medicine; Visit Provider Internal Medicine
DX: Z12.31 Encounter for screening mammogram for malignant neoplasm of breast (principal); Z80.3 Family history of malignant neoplasm of breast; Z80.1 Family history of malignant neoplasm of trachea, bronchus and lung
CPT/HCPCS: 77063; 77067

== ENCOUNTER 2025-05-11 07:24 | Outpatient (OUT) | payer MEDICARE, OTHER, SELFPAY ==
--- NOTE | 2025-05-11 07:26 | US_ITS ---
The [address] [address] Patient Name: JB ESTRELAL MRN: [id number] date: 1950 Sex: F Assigned Patient Location: US Current Patient Location: US Accession/Order Number: [id number] Exam Date: 05/11/2025 07:30 Report Date: 05/11/2025 08:09 At the request of: ANY BENNETT MD Procedure: US renal BI BILATERAL RENAL AND BLADDER ULTRASOUND CLINICAL HISTORY: Kidney Stone follow-up COMPARISON: 05/07/2024 Estimation of renal size is approximately 10.9 cm on the right and 10.4 cm on the left. An echogenic focus with twinkle artifact is seen in the superior pole on the right measuring 5 mm in size. There are multiple echogenic foci with twinkle artifact on the left, largest at the midpole measuring 5 mm. These might be stones. No hydronephrosis is seen. A small cyst is visualized at the superior pole on the right measuring 2.1 x 1.7 x 1.7 cm.. There is no perinephric fluid. The urinary bladder is partially distended with a volume of 89 mL. No contour or intraluminal abnormalities are seen. US/US renal BI IMPRESSION: SMALL RIGHT RENAL CYST. POSSIBLE BILATERAL NEPHROLITHIASIS. NO OBSTRUCTIVE UROPATHY. Impression dictated by: Natalie Rehman M.D. 05/11/2025 8:09 AM Dictation Location: [place] [address] Electronically authenticated by: [id number] Y Date: 05/11/2025 08:09
--- OUTSIDE RECORDS SUMMARY | 2025-05-11 07:26 | XMS_ITS | CCD ---
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 Name Role Phone ALDEN WHEELER Primary Care Physician Alden Wheeler DOMINICK, DR REINA Delgado Attending Unavailable WEST, DR REINA Delgado Admitting Unavailable BALL, DR HARO Primary Care Unavailable WEST, DR REINA Delgado Consulting Unavailable ELICEOEBMARY BETH, DR HARRISON Zaldivar Consulting Unavailable BALL, DR HARO Primary Care Unavailable WEST, DR REINA Delgado Attending Unavailable WEST, DR REINA Delgado Admitting Unavailable WEST, DR REINA Delgado Attending Unavailable WEST, DR REINA Delgado Admitting Unavailable WEST, DR REINA Delgado Consulting Unavailable BALL, DR HARO Primary Care Unavailable ELICEOEBMARY BETH, DR HARRISON Zaldivar Consulting Unavailable WEST, DR REINA Delgado Attending Unavailable WEST, DR REINA Delgado Admnilda Unavailable WEST, DR REINA Delgado Consulting Unavailable BALL, DR HARO Primary Care Unavailable ZIEBMARY BETH, DR HARRISON Zaldivar Consulting Unavailable WEST, DR REINA Delgado Attending Unavailable WEST, DR REINA Delgado Admnilda Unavailable WEST, DR REINA Delgado Consulting Unavailable BALL, DR HARO Primary Care Unavailable WEST, DR REINA Delgado Admitting Unavailable WEST, DR REINA Delgado Consulting Unavailable BALL, DR HARO Primary Care Unavailable WEST, DR REINA Delgado Attending Unavailable ZIEBMARY BETH, DR HARRISON Zaldivar Consulting Unavailable MISC, DR CASEY Attending [...] Unavailable WEST, DR REINA Delgado Attending Unavailable CHIARA, DR HARRISON Zaldivar Consulting Unavailable DOMINICK, DR REINA Delgado Attending Unavailable DOMINICK, DR REINA Delgado Admitting Unavailable DOMINICK, DR REINA Delgado Consulting Unavailable SUMMER, DR HARO Primary Care Unavailable ROSMERY GUILLERMO Attending Unavailable ALDEN WHEELER Referring Unavailable ALDEN WHEELER Primary Care Unavailable Ramila Pradhan Attending Unavailable Ramila Pradhan Admitting Unavailable Alden Wheeler MD Primary Care Provider Alden Wheeler DO Primary Care Provider Alden Wheeler MD Primary Care Provider Tracie Pozo Unavailable Unavailable Brown, Harley A Admitting Unavailable Brown, Harley A Attending Unavailable Brown, Harley A Referring Unavailable Brown, DO Harley A Admitting Unavailable Brown, DO Harley A Attending Unavailable Brown, DO Harley A Referring Unavailable Alden Wheleer DO Primary Care Provider Suze Harley A Admitting Unavailable Brown, Harley A Attending Unavailable Brown, Harley A Referring Unavailable Brown, DO Harley A Referring Unavailable Brown, DO Harley A Attending Unavailable Brown, DO Harley A Admitting Unavailable Lauren Gaines Attending Unavailable CLAY TORRES Attending Unavailable BROWN, HARLEY A Referring Unavailable BROWN, HARLEY A Attending Unavailable BROWN, HARLEY A Attending Unavailable BROWN, HARLEY A Referring Unavailable SHAWN WAGONER Attending Unavailable BROWN, HARLEY A Referring Unavailable BROWN, HARLEY A Referring Unavailable BROWN, HARLEY A Attending Unavailable BROWN, HARLEY A Attending Unavailable CLAY TORRES Attending Unavailable BROWN, HARLEY A Referring Unavailable BROWN, HARLEY A Attending Unavailable CLAY TORRES Attending Unavailable CLAY TORRES Attending Unavailable ADRIANA FLORES Attending Unavailable KAITY, ADRIANA Reyes Attending Unavailable KAITY, ADRIANA Reyes Attending Unavailable SYL VILLALBA Attending Unavailable CLAY TORRES Attending Unavailable CLAY TORRES Attending Unavailable BROWN, HARLEY A Referring Unavailable BROWN, HARLEY A Attending Unavailable BROWN, HARLEY A Referring Unavailable Ramila Pradhan Attending Unavailable Ramila Pradhan Attending Unavailable Ramila Pradhan Attending Unavailable Ramila Pradhan Admitting Unavailable Allergies Allergy Classification Reported Allergen(s) Allergy Type Date of Onset Reaction(s) Facility (20 sources) Latex; Translations: [latex] Drug allergy 6 Eruption of skin (disorder), Rash [facility] (8 sources) latanoprost; Translations: [latanoprost ophthalmic] Drug Allergy Itching [facility] (8 sources) meloxicam; Translations: [meloxicam] Drug Allergy Bleeding [facility] (13 sources) latanoprost Drug Allergy 5 Itching [facility] Work Phone: (13 sources) meloxicam Drug Allergy 5 GI bleeding [facility] Medications Current Medications Medication Drug Class(es) Dates Sig (Normalized) Sig (Original) acetaminophen 500 mg oral tablet (20 sources) Start: 12-01-2024 take 1 tablet by mouth every four hours acetaminophen 500 mg Tab 500 mg = 1 tab(s), Oral, q4hr, # 60 tab(s), Refills(s) 0, Pharmacy: [id number], 160, cm, 11/18/24 12:38:00 EDT, Height/Length Dosing, 94.9, kg, 11/18/24 12:38:00 EDT, Weight Dosing Start Date: 12/01/24 Status: Ordered Quantity: 60.0 Unit: tab(s) Repeat number: 1 Start: 11-18-2024 take 500 mg by mouth twice daily Tylenol 500 mg, Oral, BID, Refills(s) 0 Start Date: 11/18/24 Status: Ordered Repeat number: 1 Acetaminophen (T YLENOL ARTHRITIS PAIN PO) Active End: 06-01-2024 acetaminophen (Tylenol Extra Strength) 500 MG tablet every 6 (six) hours. 06/01/2024 Discontinued (Therapy completed) Acetaminophen (T YLENOL ARTHRITIS PAIN PO) Tylenol Arthritis Pain Active acetaminophen 325 mg / HYDROcodone bitartrate 5 mg oral tablet (2 sources) Opioid Agonist Start: 12-13-2024 End: 12-20-2024 take 1-2 tablets by mouth every four hours HYDROcodone-acetaminophen (Momence) 5-325 MG tablet Indications: Primary osteoarthritis of both knees Take 1-2 tablets by mouth every 4 (four) hours if needed (pain) for up to 7 days 40 tablet 12/13/2024 12/20/2024 Active apixaban 5 mg oral tablet (20 sources) Factor Xa Inhibitor Start: 03-10-2024 End: 07-05-2024 apixaban (Eliquis) 5 MG tablet Twice daily 03/10/2024 07/05/2024 Discontinued (Med list cleanup) Start: 03-10-2024 End: 04-06-2024 take 2 tablets by mouth twice daily, then take 1 tablet by mouth twice daily Apixaban (Eliquis) 5 mg tablet Discontinued 0 PO Twice daily 60 30 March 10, 2024 12:00am April 06, 2024 12:57pm 10mg (2 tablets) twice daily for 7 days, then decrease to 5mg (1 tablet) twice daily for next 3 months aspirin 81 mg oral tablet (20 sources) Platelet Aggregation Inhibitor, Nonsteroidal Anti-inflammatory Drug Start: 02-25-2025 Aspirin Low Dose 81 mg oral tablet Refills(s) 0 Start Date: 02/25/25 Status: Ordered Repeat number: 1 Start: 11-11-2023 End: 06-17-2024 take 1 tablet by mouth once daily Aspirin 325 mg tablet,delayed release (DR/EC) Discontinued 325 MG PO Daily November 11, 2023 12:00am June 17, 2024 10:38am Start: 03-20-2020 take 1 tablet by aamir th once daily aspirin 81 mg Oral EC Tab 81 mg = 1 tab(s), Oral, Daily, Refills(s) 0, Prophylaxis Start Date: 03/20/20 Status: Ordered Start: 03-20-2020 take 1 tablet by aamir th once daily aspirin 81 mg Oral EC Tab 81 mg = 1 tab(s), Oral, Daily, Refills(s) 0, Prophylaxis Start Date: 03/20/20 Status: Ordered Start: 06-11-2010 ASPIRIN 81 MG chewable tablet if needed 06/11/2010 Active take 1 tablet by aamir th every twenty-four hours Aspirin 325 MG 1 tablet Orally Once a day Active bacillus coagulans [id number] unt / inulin 250 mg oral capsule (2 sources) Start: 03-20-2020 take 1 capsule by mouth once daily Probiotic Formula (Bacillus Coagulans) oral capsule 1 cap(s), Oral, Daily, Refill(s) 0, Prophylaxis Start Date: 03/20/20 Status: Ordered bimatoprost 0.1 mg/ml ophthalmic solution (20 sources) Prostaglandin Analog Start: 11-18-2024 Lumigan 0 .01% ophthalmic solution OPTH, Daily, Refill(s) 0 Start Date: 11/18/24 Status: Ordered Repeat number: 1 Start: 07-06-2024 End: 10-26-2024 take 1 drop(s) into the eye(s) at bedtime Lumigan 0.01 % ophthalmic solution Indications: 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, mild stage INSTILL 1 DROP INTO BOTH EYES AT BEDTIME 7.5 mL 3 10/26/2024 Active Calcium (20 sources) Phosphate Binder, Calcium calciu m 200 MG tablet Active calcium 200 MG t ablet Calcium Active Calcium Citrate / Vitamin D (5 sources) Start: 03-20-2020 take 1 tablet by mouth once daily calcium-vitamin D 1 tab, Oral, Daily, Refill(s) 0, Prophylaxis Start Date: 03/20/20 Status: Ordered cefdinir 300 mg oral capsule (1 source) Cephalosporin Antibacterial Start: 11-23-2024 take 1 capsule by mouth twice daily Cefdinir 300 mg capsule Active 300 MG PO Twice daily 10 November 23, 2024 12:00am celecoxib 100 mg oral capsule (9 sources) Nonsteroidal Anti-inflammatory Drug Start: 12-01-2024 take 1 capsule by mouth in the morning celecoxib (CeleBREX) 100 MG capsule Take 100 mg by mouth in the morning and 100 mg before bedtime. 12/01/2024 Active cholecalciferol 0.125 mg oral capsule (20 sources) Vitamin D cholecalciferol (Vitamin D-3) 125 MCG (5000 UT) capsule Active docusate sodium 100 mg oral capsule (20 sources) Start: 03-20-2020 take 1 capsule by mouth twice daily Colace 100 mg Cap 100 mg = 1 cap(s), Oral, BID, # 20 cap(s), Refills(s) 0, Constipation Start Date: 03/20/20 Status: Ordered Quantity: 20.0 Unit: cap(s) Repeat number: 1 Docusate Sodium (DSS) 100 MG capsule 1 (one) time each day at the same time Active dorzolamide 20 mg/ml / timolol 5 mg/ml ophthalmic solution (20 sources) Carbonic Anhydrase Inhibitor, beta-Adrenergic Celestina Start: 11-18-2024 dorzolamide-timolol Opth 2%-0.5% Becca OPTH, Daily, Refill(s) 0 Start Date: 11/18/24 Status: Ordered Repeat number: 1 Start: 11-02-2024 End: 11-02-2025 take 1 drop(s) into the eye(s) in the morning dorzolamide-timolol (Cosopt) 2-0.5 % ophthalmic solution Indications: Glaucoma suspect of both eyes Administer 1 drop into both eyes in the morning and 1 drop before bedtime. 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 60 each 4 09/07/2024 Active krill oil 500 mg oral capsule (20 sources) Start: 03-20-2020 take 1 capsule by mouth once daily Nature's Bounty Red Krill Oil 500 mg oral capsule 1 cap, Oral, Daily, Refill(s) 0, Prophylaxis Start Date: 03/20/20 Status: Ordered Krill Oil 350 MG capsule Active Krill Oil 350 MG capsule as directed Orally Active KRILL/OM3/DHA/EPA/OM6/LIP/ TX (KRILL OIL, OMEGA 3 AND 6, ORAL) (2 sources) KRILL/OM3/DHA/EP A/OM6/LIP/ASTX (KRILL OIL, OMEGA 3 AND 6, ORAL) Take by mouth daily. 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, mild stage (CMS/HCC) Administer 1 drop into both eyes at bedtime 2.5 mL 6 07/06/2024 10/04/2024 Active methylPREDNISolone (15 sources) Corticosteroid S t a r t : 1 2 - 0 9 - 2 0 2 4 methylPREDNISolone (Medrol Dospak) 4 MG tablets Indications: Arthritis of right knee Follow schedule on package instructions 21 tablet 07/05/2024 Active Start: 03-31-2024 End: 03-31-2024 methylPREDNISolone acetate ( DEPO-Medrol) injection 40 mg Start: 03-31-2024 End: 03-31-2024 40 mg, Intra-articular, Once PRN Procedure, Starting on Fri03/31/24 at 0905, For 1 dose 24 hr mirabegron 25 mg extended release oral tablet (6 sources) beta3-Adrenergic Agonist Start: 02-25-2025 take 1 tablet by mouth once daily Myrbetriq 25 MG 24 hr tablet Take 25 mg by mouth Daily 02/25/2025 Active Multiple Vitamin (MULTI VITAMIN DAILY PO) (20 sources) Multiple Vitamin (MULTI VITAMIN DAILY PO) Active Multiple Vitamin (MULTI VITAMIN DAILY PO) Multi Vitamin Active MULTIVIT-MINERALS/FERROUS FU M (MULTI VITAMIN ORAL) (2 sources) MULTIVIT-MINERAL S/FERROUS FUM (MULTI VITAMIN ORAL) Take by mouth daily. Active Nature's Bounty Red Krill Oi l (4 sources) Start: 021 Nature's Bounty Red Krill Oi l 350 mg, Oral Start Date: 06/06/21 Status: Ordered Nature's Bounty Red Krill Oi l 500 mg oral capsule (8 sources) Start: 020 take 1 capsule by mouth once daily Nature's Bounty Red Krill Oil 500 mg oral capsule 1 cap, Oral, Daily, Refill(s) 0, Prophylaxis Start Date: 03/20/20 Status: Ordered Repeat number: 1 Start: 03-20-2020 take 1 capsule by mo [facility] once daily Nature's Bounty Red Krill Oil 500 mg oral capsule 1 cap, Oral, Daily, Refill(s) 0, Prophylaxis Start Date: 03/20/20 Status: Ordered [id number]-epa-fish oil-D3 (VITAMIN-D + OMEGA-3) 350 mg-400 mg- 1,000 unit capsule (2 sources) bpowq-[id number]-epa -fish oil-D3 (VITAMIN-D + OMEGA-3) 350 mg-400 mg- 1,000 unit capsule Take by mouth daily. Active peg 3350-sod sulf,chlr-pot-m ag 178.7-7.3-0.5 gram recon soln (1 source) Start: 12-05-2023 End: 12-06-2023 peg 3350-sod sulf,chlr-pot-m ag 178.7-7.3-0.5 gram recon soln Indications: Rectal bleeding Take 1 kit by mouth once daily for 1 dose. Please see instructional sheet given by physicians office. 1 each 12/05/2023 12/06/2023 Active Potassium (20 sources) Potassium 99 MG tablet 1 (one) time each day at the same time Active Potassium 99 MG tablet 1 (one) time each day at the same time. Active potassium chloride 1.33 meq oral tablet (10 sources) Start: 03-20-2020 take 1 tablet by mouth once daily potassium chloride 99 mg oral tablet 99 mg = 1 tab(s), Oral, Daily, # 100 tab(s), Refills(s) 0, Prophylaxis Start Date: 03/20/20 Status: Ordered Quantity: 100.0 Unit: tab(s) Repeat number: 1 Start: 03-20-2020 take 1 tablet by aamir th once daily potassium chloride 99 mg oral tablet 99 mg = 1 tab(s), Oral, Daily, # 100 tab(s), Refills(s) 0, Prophylaxis Start Date: 03/20/20 Status: Ordered Potassium gluconate (2 sources) POTASSIUM GLUCON ATE ORAL Take by mouth daily. Active prednisoLONE acetate 10 mg/ml ophthalmic suspension (20 sources) Corticosteroid Start: 05-12-2024 prednisoLONE Opth acetate 1% Susp 5 mL 1 drop(s), INSTILL 1 DROP INTO BOTH EYES 4 TIMES A DAY Start Date: 05/12/24 Status: Ordered Repeat number: 1 Start: 05-12-2024 prednisoLONE O pth acetate 1% Susp 5 mL INSTILL 1 DROP INTO BOTH EYES 4 TIMES A DAY Start Date: 05/12/24 Status: Ordered Start: 06-22-2023 prednisoLONE a cetate (Pred-Forte) 1 % ophthalmic suspension 06/22/2023 Active Start: 06-22-2023 take 1 drop(s) into the eye(s) four times daily prednisoLONE acetate (Pred-Forte) 1 % ophthalmic suspension PUT 1 DROP IN LEFT EYE 4 TIMES A DAY 06/22/2023 Active Start: 06-22-2023 prednisoLONE a cetate (PRED FORTE) 1 % ophthalmic suspension Administer 1 drop into the left eye in the morning and 1 drop at noon and 1 drop in the evening and 1 drop before bedtime. 06/22/2023 Active Probiotic Formula (Bacillus Coagulans) oral capsule (2 sources) Start: 03-20-2020 take 1 capsule by mouth once daily Probiotic Formula (Bacillus Coagulans) oral capsule 1 cap(s), Oral, Daily, Refill(s) 0, Prophylaxis Start Date: 03/20/20 Status: Ordered Suzetrigine (Journavx) 50 MG tablet (7 sources) Start: 12-16-2024 End: 12-30-2024 take 1 tablet by mouth every twelve hours Suzetrigine (Journavx) 50 MG tablet Indications: Status post total left knee replacement Take 50 mg by mouth every 12 (twelve) hours for 14 days For the first dose, take 2 tablets (100 mg) on an empty stomach at least 1 hour before or 2 hours after food. Starting 12 hours after the initial dose, take 1 tablet (50 mg) every 12 hours with or without food. 30 tablet 12/16/2024 12/30/2024 Active Start: 12-01-2024 End: 12-15-2024 take 1 tablet by mouth every twelve hours Suzetrigine (Journavx) 50 MG tablet Indications: Primary osteoarthritis of left knee Take 50 mg by mouth every 12 (twelve) hours for 14 days For the first dose, take 2 tablets (100 mg) on an empty stomach at least 1 hour before or 2 hours after food. Starting 12 hours after the initial dose, take 1 tablet (50 mg) every 12 hours with or without food. 30 tablet 12/01/2024 12/15/2024 Active tiZANidine 2 mg oral tablet (20 sources) Central alpha-2 Adrenergic Agonist Start: 12-30-2022 End: 03-24-2024 tiZANidine (Zanaflex) 2 MG tablet 03/24/2024 Active End: 06-01-2024 tiZANidine (Zanaflex) 2 MG c apsule Take by mouth 06/01/2024 Discontinued (Therapy completed) Tylenol 8 HR Arthritis Pain (1 source) Start: 11-18-2024 take 650 mg by mouth twice daily Tylenol 8 HR Arthritis Pain 650 mg, Oral, BID, Refills(s) 0 Start Date: 11/18/24 Status: Ordered Repeat number: 1 Vibegron (Gemtesa) 75 MG tablet (9 sources) Start: 05-12-2024 Vibegron (Gemt anne) 75 MG tablet Take 75 mg by mouth 05/12/2024 Active vibegron 75 MG Oral Tablet [Gemtesa] (3 sources) Start: 02-25-2025 take 1 tablet by mouth once daily Gemtesa 75 mg oral tablet 75 mg = 1 tab(s), Oral, Daily, fill whichever med is more affordable, # 30 tab(s), Refills(s) 2, Pharmacy: [facility]/pharmacy #[id number], 160, cm, 02/25/25 15:17:00 EDT, Height/Length Dosing, 99.4, kg, 02/25/25 15:17:00 EDT, Weight Dosing Start Date: 02/25/25 Status: Ordered Quantity: 30.0 Unit: tab(s) Repeat number: 3 Indications: Mixed incontinence; Start: 05-12-2024 take 1 tablet by aamir th once daily Gemtesa 75 mg oral tablet 75 mg = 1 tab(s), Oral, Daily, # 30 tab(s), Refills(s) 11, Pharmacy: [facility], 162, cm, 05/12/24 10:24:00 EDT, Height/Length Dosing, 97, kg, 05/12/24 10:24:00 EDT, Weight Dosing Start Date: 05/12/24 Status: Ordered Vitamin D3 (10 sources) Start: 06-06-2021 Vitamin D3 125 mcg Start Date: 06/06/21 Status: Ordered Repeat number: 1 Start: 06-06-2021 Vitamin D3 125 mcg Start Date: 06/06/21 Status: Ordered Womens Pack oral tablet (10 sources) Start: 03-20-2020 take 1 tablet by mouth once daily Womens Pack oral tablet 1 tab(s), Oral, Daily, Refill(s) 0, Prophylaxis Start Date: 03/20/20 Status: Ordered Repeat number: 1 Start: 03-20-2020 take 1 tablet by aamir th once daily Womens Pack oral tablet 1 tab(s), Oral, Daily, Refill(s) 0, Prophylaxis Start Date: 03/20/20 Status: Ordered Completed/Discontinued Medications Medication Drug Class(es) Dates Sig (Normalized) Sig (Original) folic acid 0.4 mg oral tablet (1 source) End: 12-05-2023 take 1 tablet by mouth once daily folic acid (FOLVITE) 400 MCG tablet Take 400 mcg by mouth daily. 12/05/2023 Discontinued (Patient Stopped On Own) gabapentin 300 mg oral capsule (13 sources) Anti-epileptic Agent Start: 12-06-2024 End: 04-14-2025 take 1 capsule by mouth in the morning, then take 1 capsule by mouth in the evening, then take 1 capsule by mouth at bedtime gabapentin (Neurontin) 300 MG capsule Indications: Primary osteoarthritis of left knee Take 1 capsule (300 mg) by mouth in the morning and 1 capsule (300 mg) in the evening and 1 capsule (300 mg) before bedtime. Do all this for 14 days. 42 capsule 12/06/2024 04/14/2025 Discontinued (Therapy completed) 3 ml sodium hyaluronate 10 mg/ml prefilled syringe (16 sources) Start: 04-14-2025 End: 04-14-2025 cross-linked hyaluronate (Gel-One) injection 30 mg Start: 04-14-2025 End: 04-14-2025 30 mg, Intra-articular, Once PRN Procedure, Starting on Enriqueta 04/14/25 at 0846, For 1 dose Start: 06-15-2024 End: 06-15-2024 Sodium Hyaluronate (Viscosup ) injection 2 mL Start: 06-15-2024 End: 06-15-2024 2 mL, Intra-articular, Once PRN Procedure, Starting on e 06/15/24 at 1214, For 1 dose Start: 06-08-2024 End: 06-08-2024 Sodium Hyaluronate (Viscosup ) injection 2 mL Start: 06-08-2024 End: 06-08-2024 2 mL, Intra-articular, Once PRN Procedure, Starting on Fri06/08/24 at 1049, For 1 dose Start: 06-01-2024 End: 06-01-2024 Sodium Hyaluronate (Viscosup ) injection 2 mL Start: 06-01-2024 End: 06-01-2024 2 mL, Intra-articular, Once PRN Procedure, Starting on Fri06/01/24 at 0948, For 1 dose levoFLOXacin 250 mg oral tablet (2 sources) Quinolone Antimicrobial Start: 04-06-2024 End: 04-06-2024 take 1 tablet by mouth once daily Levofloxacin 250 mg tablet Discontinued 250 MG PO Daily 11 29April 06, 2024 12:00am April 06, 2024 4:18pm meloxicam 15 mg oral tablet (13 sources) Nonsteroidal Anti-inflammatory Drug Start: 11-11-2023 End: 11-13-2023 take 1 tablet by mouth once daily Meloxicam 15 mg tablet Discontinued 15 MG PO Daily November 11, 2023 12:00am November 13, 2023 12:22pm Start: 12-30-2022 meloxicam 15 m g Tab Refills(s) 0 Start Date: 05/07/23 Status: Ordered predniSONE 20 mg oral tablet (13 sources) Start: 11-13-2023 End: 06-17-2024 Prednisone 20 mg tablet Discontinued 20 MG PO As Directed 07 02November 13, 2023 12:00am June 17, 2024 10:38am 1 tab tid w/ food x 2 days, then bid w/ food x 2 days, then qd w/ food x 2 days tafluprost 0.015 mg/ml ophthalmic solution (3 sources) Prostaglandin Analog Start: 07-06-2024 End: 07-06-2024 Tafluprost, PF, (Zioptan) 0.0015 % solution Indications: 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, mild stage (CMS/HCC) Administer 1 drop into affected eye(s) at bedtime 30 each 07/06/2024 07/06/2024 Discontinued Start: 07-06-2024 Tafluprost, PF , (Zioptan) 0.0015 % solution Indications: 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, mild stage (CMS/HCC) Administer 1 drop into affected eye(s) at bedtime 30 each 5 07/06/2024 Active triamcinolone acetonide 32 mg injection (4 sources) Corticosteroid Start: 01-13-2025 End: 01-13-2025 triamcinolone acetonide (Zilretta) injection 32 mg Start: 01-13-2025 End: 01-13-2025 32 mg, Once PRN Procedure, S tarting on Enriqueta 01/13/25 at 1143, For 1 dose Vitamin D 1000 intl units Tab (4 [...] specified organisms] Episodic Calculus of urinary tract (14 sources) Kidney stone; Translations: [Ureteric stone] Onset: 4 05-07-2023 Episodic Deficiency and other anemia (16 sources) Anemia; Translations: [Anemia, unspecified] 06-06-2021 Episodic Deficiency and other anemia (8 sources) Microcytic hypochromic anemia; Translations: [Iron deficiency anemia, unspecified] Episodic Deficiency and other anemia (1 source) Anemia, unspecified; Translations: [Anemia, unspecified] 11-23-2024 Episodic Diseases of mouth; excluding dental (1 source) Dry mouth, unspecified Episodic Gastrointestinal hemorrhage (16 sources) Rectal hemorrhage; Translations: [Hemorrhage of anus and rectum] Onset: 4 11-11-2023 Episodic Genitourinary symptoms and ill-defined conditions (20 sources) Mixed incontinence; Translations: [Incontinence] Onset: 2 Chronic Genitourinary symptoms and ill-defined conditions (18 sources) Nocturia; Translations: [Nocturia] Onset: 2 Episodic Glaucoma (20 sources) Preglaucoma, unspecified, bilateral; Translations: [Preglaucoma, unspecified] Onset: 4 Resolved: 4 12-19-2023 Chronic Intracranial injury (1 source) Concussion without loss of consciousness, initial encounter Episodic Osteoarthritis (20 sources) Arthritis; Translations: [Arthritis of left knee] Onset: 3 06-06-2021 Chronic Other bone disease and musculoskeletal deformities (8 sources) Other specified disorders of bone density and structure, other site; Translations: [Osteopenia of lumbar spine] Episodic Other bone disease and musculoskeletal deformities (6 sources) Osteopenia; Translations: [Other specified disorders of bone density and structure, other site] 11-11-2023 Episodic Other connective tissue disease (6 sources) History of total knee arthroplasty; Translations: [Presence of left artificial knee joint] 12-16-2024 Chronic Other connective tissue disease (4 sources) Other specified soft tissue disorders; Translations: [Swelling of limb] 03-10-2024 Episodic Other diseases of kidney and ureters (1 source) Urinary tract obstruction; Translations: [Hydronephrosis with renal and ureteral calculous obstruction] Onset: 3 Episodic Other diseases of kidney and ureters (2 sources) 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; Translations: [Cyst of kidney, acquired] Onset: 4 Episodic Other diseases of kidney and ureters (5 sources) Acquired renal cystic disease 05-12-2024 Episodic Other diseases of veins and lymphatics (14 sources) Peripheral venous insufficiency; Translations: [Venous insufficiency (chronic) (peripheral)] 11-11-2023 Episodic Other diseases of veins and lymphatics (6 sources) Venous insufficiency (chronic) (peripheral); Translations: [Venous (peripheral) insufficiency, unspecified] 03-10-2024 Episodic Other non-traumatic joint disorders (6 sources) Arthritis of right knee 06-01-2024 Chronic Other non-traumatic joint disorders (12 sources) Pain in right knee; Translations: [Pain in joint, lower leg] 05-27-2024 Episodic Other nutritional; endocrine; and metabolic disorders (1 source) Obese class II; Translations: [Body mass index (BMI) 36.0-36.9, adult] Onset: 2 Chronic Other nutritional; endocrine; and metabolic disorders (7 sources) Body mass index 30+ - obesity 05-01-2022 Chronic Other screening for suspected conditions (not mental disorders or infectious disease) (7 sources) Encounter for screening mammogram for malignant neoplasm of breast; Translations: [Patient encounter status] Onset: 2 Episodic Phlebitis; thrombophlebitis and thromboembolism (17 sources) Phlebitis and thrombophlebitis of superficial vessels of right lower extremity; Translations: [Phlebitis and thrombophlebitis of superficial vessels of left lower extremity] Onset: 3 Episodic Comment on above: DVT left Gastrocnemi us Vein - 02/2024 Residual codes; unclassified (8 sources) Postmenopausal state; Translations: [Asymptomatic menopausal state] Episodic Retinal detachments; defects; vascular occlusion; and retinopathy (20 sources) Branch retinal vein occlusion with macular edema; Translations: [Tributary (branch) retinal vein occlusion, right eye, with macular edema] Onset: 3 12-18-2022 Chronic Screening and history of mental health and substance abuse codes (10 sources) Ex-smoker 06-06-2021 Episodic Spondylosis; intervertebral disc disorders; other back problems (13 sources) Cervical spondylosis; Translations: [Spondylosis without myelopathy or radiculopathy, cervical region] Chronic Spondylosis; intervertebral disc disorders; other back problems (2 sources) Torticollis; Translations: [Cervicalgia] Episodic Sprains and strains (2 sources) Strain of muscle, fascia and tendon at neck level, initial encounter; Translations: [Strain of other muscles, fascia and tendons at shoulder and upper arm level, unspecified arm, initial encounter] Episodic Substance-related disorders (15 sources) Tobacco user; Translations: [Nicotine dependence, cigarettes, in remission] 11-11-2023 Chronic Superficial injury; contusion (2 sources) Contusion of right hand, initial encounter; Translations: [Contusion of left knee, initial encounter] Episodic Unclassified (10 sources) Asymptomatic microscopic hematuria 06-06-2021 Unclassified (6 sources) Obstructive hydronephrosis 05-07-2023 Unclassified (4 sources) Chronic pain of right knee 01-14-2025 Varicose veins of lower extremity (4 sources) Varicose veins of bilateral lower extremities with pain; Translations: [VARICOSE VNS TITA LOW EXTREM W/PAIN] Onset: 3 Episodic Past or Other Problems Problem Classification Problem Date Documented Da te Episodic/Chronic Fracture of lower limb (20 sources) Closed trimalleolar fracture; Translations: [Displaced trimalleolar fracture of right lower leg, initial encounter for closed fracture] Onset: 12-11-2022 12-11-2022 Episodic Inflammation; infection of eye (except that caused by tuberculosis or sexually transmitteddisease) (20 sources) Blepharitis of upper and lower eyelids of bilateral eyes; Translations: [Unspecified blepharitis right eye, upper and lower eyelids] Onset: 12-18-2022 12-18-2022 Episodic Other eye disorders (20 sources) Dry eyes; Translations: [Dry eye syndrome of bilateral lacrimal glands] Onset: 12-18-2022 12-18-2022 Episodic Residual codes; unclassified (1 source) Family [...] Test Name Value Interpretation Reference Range Facility Reminderson 04-29-2025 Reminders Reminders From: Zofia Winter To: [facility] - Recalls Lue; Sent: 05/12/2024 12:07:24 EDT Show up: 04/12/2025 12:06:00 EDT Subject: JAK and KUB for f/u Due Date/Time: 05/12/2025 12:06:00 EDT Reminder Message Pt needs to complete JAK and KUB prior to f/u in 1 year. Typically goes to [facility]. Order in 05/12/24 encounter (dx: kidney stones). Orders faxed to [facility]. LM on to remind pt to have imaging done prior to 06/01/25 appt. [facility] No Panel Informationon 04-14 Tracie Nohelia, ARR T 04/14/2025 7:41 PM L Inj/Asp: R knee on 04/14/2025 8:46 AM Indications: pain Details: 22 G needle, lateral approach Medications: 30 mg cross-linked hyaluronate 30 MG/3ML Consent was given by the patient. [facility] [place] [facility] [place] XR Knee - left 3 [facility] Result: Three views, bilateral PA weight-bearing/sunrise /lateral left knee, taken today and saved to the permanent medical record are reviewed. Prosthesis is unchanged in position and alignment. No signs of prosthetic wear or loosening. No periprosthetic fractures. Complete loss medial joint space right knee, severe end stage arthritis. Severe PF arthritis. Critical access hospital Radiology Study observation (narrative) [facility] Ambulatory Visit Summaryon 0 02-25-2025 Ambulatory Visit Summary Ambulatory Visit Summary DONNA ESTRELLA :1950 Visit Date:02/25/2025 Ambulatory Visit Instructions Your Diagnosis Asymptomatic microscopic hematuria Your Care Team Attending Physician - MEG Gaines APRN, Lauren Villalobos Primary Care Physician - [facility] This Is Your Medications List Contact prescribing physician if questions or concerns acetaminophen (acetaminophen 500 mg Tab) aspirin (Aspirin Low Dose 81 mg oral tablet) bimatoprost ophthalmic (Lumigan 0.01% ophthalmic solution) cholecalciferol (Vitamin D3) dorzolamide-timolol ophthalmic (dorzolamide-timolol Opth 2%-0.5% Becca) multivitamin with minerals (Womens Pack oral tablet) omega-3 polyunsaturated fatty acids (Nature's Bounty Red Krill Oil 500 mg oral capsule) potassium chloride (potassium chloride 99 mg oral tablet) prednisoLONE ophthalmic (prednisoLONE Opth acetate 1% Susp 5 mL) tizanidine (tiZANidine 2 mg Tab) Procedures Performed Total knee arthroplasty (12/01/2024), Cataract extraction and insertion of intraocular lens (2020), Cataract extraction and insertion of intraocular lens (03/21/2020), delivery, Cholecystectomy, CRPP (closed reduction and percutaneous pinning) of fracture of humerus, Open reduction and internal fixation of fracture, Procedure on knee, Sclerotherapy of vein of lower limb. Discharge Vitals Heart Rate (Peripheral) 73 Blood Pressure 139/90 Height 160 cm Height 63 in Weight 99.4 kg Weight 219.139 lb BMI 38.83 What to do next Scheduled Follow-Up Appointments Friday 8:15 AM EDT With: Lorne GONZALEZ, Ramila Pascal Where: [facility] [id number]- Medications What How Much When Instructions Unchanged acetaminophen (acetaminophen 500 mg Tab) 1 Tablets By Mouth Every 4 hours Contact prescribing physician if questions or concerns Unchanged aspirin (Aspirin Low Dose 81 mg oral tablet) Contact prescribing physician if questions or concerns Unchanged bimatoprost ophthalmic (Lumigan 0.01% ophthalmic solution) Ophthalmic Every day Contact prescribing physician if questions or concerns Unchanged cholecalciferol (Vitamin D3) 125 Microgram Contact prescribing physician if questions or concerns Unchanged dorzolamide-timolol ophthalmic (dorzolamide-timolol Opth 2%-0.5% Becca) Ophthalmic Every day Contact prescribing physician if questions [...] prescribing physician if questions or concerns Unchanged prednisoLONE ophthalmic (prednisoLONE Opth acetate 1% Susp 5 mL) 1 Drops INSTILL 1 DROP INTO BOTH EYES 4 TIMES A DAY Contact prescribing physician if questions or concerns Unchanged tizanidine (tiZANidine 2 mg Tab) Contact prescribing physician if questions or concerns Allergies latanoprost ophthalmic (Itching) meloxicam (Bleeding) Problems Ongoing - Any problem that you are currently receiving treatment for. Anemia Arthritis Asymptomatic microscopic hematuria BMI 36.0-36.9,adult Former smoker Kidney stones Mixed incontinence Nocturia Renal cysts, acquired, bilateral Ureteral stone Ureteral stone with hydronephrosis Patient Survey You may receive a survey via text or e-mail asking about your office visit. Please share your experience with us by completing your survey. We appreciate your feedback and thank you for choosing us for your care. Patient Portal You may access all of your results and other medical record information on our secure patient portal. If you are not signed up for this yet, please contact [facility] at [phone] to get signed up today. Language Information Language assistance services are available as needed. [facility] Urology Office/Clinic Noteon 02-25-2025 Urology Office/Clinic Note Urology Office/Clinic Note Chief Complaint uti symptoms HPI Staff 74 year old female here for uti symptoms last seen by Dr. Pradhan 05/12/24 Previous Dx: Mixed incontinence, Nocturia, Kidney stones, Micro hematuria, Renal cyst patient states that for 2 days she has been having more urgency. Denies any dysuria or gross hematuria. States that KML had prescribed Gemtesa at last visit and she did not get it due to other health issues and is wondering if maybe she should take it due to worsening incontinence. History of Present Illness I have reviewed and verified the staff HPI to be accurate for this encounter. Portions of this record may have been created with voice recognition artificial intelligence software, specifically [employer], [employer] and or [employer]. Substitutions may have occurred due to the inherent limitations of voice recognition and artificial intelligence software. Review of Systems PHQ Score Initial Depression Screen Score: 0 SCORE Physical Exam Vitals & Measurements HR: 73(Peripheral) BP: 139/90 HT: 63 in HT: 160 cm WT: 99.4 kg WT: 219.139 lb BMI: 38.83 General: Well developed, well nourished, in no acute distress. Assessment/Plan KML pt 1. Mixed incontinence (N39.46: Mixed incontinence) BBS 19 (17) Pt had improvement of incontinence sx after completing 5 sessions of PFPT At prior OV, KML gave rx for Gemtesa. However, pt did not start medication for unknown reason. I reiterated use of medication for bladder control, SEs of beta 3 agonists. Pt w/ constipation at baseline and not ideal candidate for anticholinergic. We did also briefly touch base on Botox. Will resend Gemtesa/Myrbetriq. Pt to start. Contact office if cost prohibitive. -start gemtesa/myrbetriq, call office if cost prohibitive -consider botox -f/u as scheduled Apr 2025 Ordered: mirabegron, 25 mg = 1 tab(s), Oral, Daily, fill whichever med is more affordable, # 30 tab(s), Refills(s) 2, Pharmacy: [facility]/pharmacy #[id number], 160, cm, 02/25/25 15:17:00 EDT, Height/Length Dosing, 99.4, kg, 02/25/25 15:17:00 EDT, Weight Dosing vibegron, 75 mg = 1 tab(s), Oral, Daily, fill whichever med is more affordable, # 30 tab(s), Refills(s) 2, Pharmacy: [id number], 160, cm, 02/25/25 15:17:00 EDT, Height/Length Dosing, 99.4, kg, 02/25/25 15:17:00 EDT, Weight Dosing 2. Nocturia (R35.1: Nocturia) 2-3x/night see #1 3. Asymptomatic microscopic hematuria (R31.21: Asymptomatic microscopic hematuria) UAs: 03/30/23 [facility] - large blood, moderate bacteria, and trace leuks. (around time of stone episode) 04/15/23 [facility] - large blood and trace leuks. (around time of stone episode) 05/07/23 [facility] - neg blood and infection. JAK 05/07/24 [facility] - No renal mass, bladder wall thickening or mass noted. UA today w/ trace blood denies any gross hematuria since prior OV -cont to monitor Ordered: Urnls Dip Stick Auto w/o Microscopy POC 77025 4. Kidney stones (N20.0: Calculus of kidney) CT AP w/ Con 04/25/23 [facility] - mild Lt-sided hydro w/ obstructive stone measuring 2.7mm in the UVJ. -Passed stone on own CT AP wo con 05/12/23 [facility] - Punctate nonobstructing bilateral renal stones. No hydro. KUB 05/07/24 [facility] - No visible stones. JAK 05/07/24 [facility] - No stones or hydro noted. -not addressed today -f/u w/ KUB/JAK Apr 2025 5. Renal cysts, acquired, bilateral (N28.1: Cyst of kidney, acquired) CT AP wo con 05/12/23 [facility] - Bilateral renal cysts, largest measuring 1.5 cm on R. -Simple cysts do not require monitoring [1] Follow-up With When Contact Information Lorne GONZALEZ, Ramila Pascal, URL, [facility] [address], [place] [address] [address]- Additional Instructions: as scheduled apr 2025 Patient Education Urinary Incontinence Overactive Bladder, Adult Hematuria, Adult Dietary Guidelines to Help Prevent Kidney Stones Problem List/Past Medical History Ongoing Anemia Arthritis Asymptomatic microscopic hematuria BMI 36.0-36.9,adult Former smoker Kidney stones Mixed incontinence Nocturia Renal cysts, acquired, bilateral Ureteral stone Ureteral stone with hydronephrosis Historical No qualifying data Procedure/Surgical History Total knee arthroplasty (12/01/2024), Cataract extraction and insertion of intraocular lens (2020), Cataract extraction and insertion of intraocular lens (03/21/2020), delivery, Cholecystectomy, CRPP (closed reduction and percutaneous pinning) of fracture of humerus, Open reduction and internal fixation of fracture, Procedure on knee, Sclerotherapy of vein of lower limb. Medications acetaminophen 500 mg Tab, 500 mg= 1 tab(s), Oral, q4hr Aspirin Low Dose 81 mg oral tablet dorzolamide-timolol Opth 2%-0.5% Becca, OPTH, Daily Gemtesa 75 mg oral tablet, 75 mg= 1 tab(s), Oral, Daily, 2 refills Lumigan 0.01% ophthalmic solution, OPTH, Daily Myrbetriq 25 mg oral tablet, extended release, 25 mg= 1 tab(s), Oral, Daily, 2 refills Nature's Bounty Red Krill (more content not included)... [facility] Comment on above: Result Comment: Elec tronically Signed By: MEG Gaines APRN, Lauren Villalobos\.br\Date and Time Signed: 02/25/25 15:57 EDT XR Knee - left 3 [facility] Result: Three views, bilateral PA weight-bearing/sunrise /lateral left knee, taken today and saved to the permanent medical record are reviewed. Prosthesis is unchanged in position and alignment. No signs of prosthetic wear or loosening. No periprosthetic fractures. [facility] [place] No Panel Informationon 01-13 Tracie Bowlesufman, ASHISH T 01/14/2025 4:09 PM L Inj/Asp: R knee on 01/13/2025 11:43 AM Indications: pain Details: 22 G needle, lateral approach Medications: 32 mg triamcinolone acetonide 32 MG Consent was given by the patient. [facility] [place] XR Knee - left 3 [facility] Radiology Study observation (narrative) [facility] [place] XR Knee - left 3 [facility] Result: Three views, bilateral PA weight-bearing/sunrise /lateral left knee, taken today and saved to the permanent medical record are reviewed. Prosthesis is unchanged in position and alignment. No signs of prosthetic wear or loosening. No periprosthetic fractures. Critical [facility] hospital XR Knee - left 3 [facility] Radiology Study observation (narrative) [facility] Surgical Pathology Reporton 12-06-2024 Surgical Pathology Report [facility] [address] [place] [address]- Surgical Pathology Report Collected Date/Time: 12/01/2024 08:07 EDT Pathologist: Praneeth GONZALEZ PhD, Ольга Chávez Received Date/Time: 12/01/2024 09:58 EDT Harley Arciniega DO, DO, Jason A 07 Surgical Pathology Report - 12/06/2024 12:22 EDT - Auth (Verified) Final Diagnosis LEFT KNEE BONE AND SOFT TISSUE, ARTHROPLASTY: - BONE CARTILAGE WITH DEGENERATIVE CHANGES, CONSISTENT WITH DEGENERATIVE OSTEOARTHRITIS. - BENIGN SYNOVIAL SOFT TISSUE. (Electronic Signature) Ольга Dacosta MD PhD 12/06/2024 12:22 Clinical Information left knee osteoarthritis Pre-Op Diagnosis: left knee osteoarthritis Procedure: left total knee arthroplasty Post-Op Diagnosis: Advanced degenerative osteoarthrosis, left knee Specimen(s) Received left knee bone and soft tissue Gross Description Received in formalin labeled with patient name, number, and left knee bone and soft tissue. The specimen consists of an assortment of fragments of yellowish-white fibrofatty tissue and osseous tissue which in aggregate measure 11 x 10 x 5 cm. Among the segments is a recognizable tibial plateau and crescent-shaped meniscal fibrocartilage. The osseous segments are in part covered by articular surface which is thin and rough with osteophyte formation present. Specimen is submitted in two cassettes: 1 - Soft tissue 2 - Bone after decalcification (DC) DC:[facility] Microscopic Description Microscopic examination performed unless gross only specified. Quality was accessed and acceptable. This report was transcribed using voice recognition technology and might contain unintended computerized central supply assistant errors. [facility] Comment on above: Performed By: #### [id number] #### [facility] [address] [place] [address] Path. Reviewon 12-03-2024 Path Review Anemia with anisocytosis, target cells, occasional ovalocytes and mild polychromasia. Clinical correlation is indicated for etiology. WBC and platelets within normal limits. Invalid Interpretation Code [facility] Comment on above: Performed By: #### 1 [id number] #### [facility] [address] [place] [address] BUNon 12-02-2024 Urea nitrogen [Mass/Vol] 17 mg/dL Normal 5-21 [facility] Comment on above: Performed By: #### 2 [id number] #### [facility] [address] [place] [address] CBC w/ Auto Diffon Anisocytosis Ql (Bld) PRESENT Invalid Interpretation Code [facility] Comment on above: Performed By: #### 2 [id number] #### [facility] [address] [place] [address] Basophilic stippling LM Ql (Bld) PRESENT Invalid Interpretation Code [facility] Comment on above: Performed By: #### 2 [id number] #### [facility] [address] [place] [address] Basophils/100 WBC (Bld) 0.2 % Normal 0.0-2.0 [facility] Comment on above: Performed By: #### 2 [id number] #### [facility] [address] [place] [address] Basophils/Leukocytes Auto (Bld) [Pure # fraction] 0.0 E9/L Normal 0.0-0.2 [facility] Comment on above: Performed By: #### 2 [id number] #### [facility] [address] [place] [address] Eosinophils (Bld) [#/Vol] 0.0 E9/L Normal 0.0-0.5 [facility] Comment on above: Performed By: #### 2 [id number] #### [facility] [address] [place] [address] Eosinophils/100 WBC (Bld) 0.0 % Normal 0.0-8.0 [facility] Comment on above: Performed By: #### 2 [id number] #### [facility] [address] [place] [address] Erythrocyte distribution width (RBC) [Ratio] 16.0 % High 10.9-14.2 [facility] Comment on above: Performed By: #### 2 [id number] #### [facility] [address] [place] [address] Hematocrit (Bld) [Volume fraction] 32.1 % Low 34.0-46.0 [facility] Comment on above: Performed By: #### 2 [id number] #### [facility] [address] [place] [address] Hemoglobin (Bld) [Mass/Vol] 10.2 g/dL Low 12.0-16.0 [facility] Comment on above: Performed By: #### 2 [id number] #### [facility] [address] [place] [address] Lymphocytes (Bld) [#/Vol] 0.9 E9/L Low 1.0-4.0 [facility] Comment on above: Performed By: #### 2 [id number] #### [facility] [address] [place] [address] Lymphocytes/100 WBC (Bld) 10.4 % Low 14.0-50.0 [facility] Comment on above: Performed By: #### 2 [id number] #### [facility] [address] [place] [address] MCH (RBC) [Entitic mass] 20.5 pg Low 27.0-34.0 [facility] Comment on above: Performed By: #### 2 [id number] #### [facility] [address] [place] [address] MCHC (RBC) [Mass/Vol] 31.8 g/dL Normal 31.4-36.0 [facility] Comment on above: Performed By: #### 2 [id number] #### [facility] [address] [place] [address] MCV (RBC) [Entitic vol] 64.4 fL Low 80.0-100.0 [facility] Comment on above: Performed By: #### 2 [id number] #### [facility] [address] [place] [address] Microcytes Ql (Bld) PRESENT Invalid Interpretation Code [facility] Comment on above: Performed By: #### 2 [id number] #### [facility] [address] [place] [address] Monocytes (Bld) [#/Vol] 0.9 E9/L Normal 0.2-1.0 [facility] Comment on above: Performed By: #### 2 [id number] #### [facility] [address] [place] [address] Neutrophils (Bld) [#/Vol] 6.8 E9/L Normal 2.0-7.5 [facility] Comment on above: Performed By: #### 2 [id number] #### [facility] [address] [place] [address] Neutrophils/100 WBC (Bld) 78.6 % High 36.0-75.0 [facility] Comment on above: Performed By: #### 2 [id number] #### [facility] [address] [place] [address] Ovalocytes LM Ql (Bld) PRESENT Invalid Interpretation Code [facility] Comment on above: Performed By: #### 2 [id number] #### [facility] [address] [place] [address] Platelet mean volume (Bld) [Entitic vol] 9.6 fL Normal 6.4-10.8 [facility] Comment on above: Performed By: #### 2 [id number] #### [facility] [address] [place] [address] Platelets (Bld) [#/Vol] 187.0 E9/L Normal 150.0-500.0 [facility] Comment on above: Performed By: #### 2 [id number] #### [facility] [address] [place] [address] Poikilocytosis Auto Ql (Bld) PRESENT Invalid Interpretation Code [facility] Comment on above: Performed By: #### 2 [id number] #### [facility] [address] [place] [address] RBC (Bld) [#/Vol] 5.0 E12/L Normal 4.3-5.9 [facility] Comment on above: Performed By: #### 2 [id number] #### [facility] [address] [place] [address] RBC size Nom (Bld) SEE MORPHOLOGY Invalid Interpretation Code [facility] Comment on above: Performed By: #### 2 [id number] #### [facility] [address] [place] [address] Target cells LM Ql (Bld) PRESENT Invalid Interpretation Code [facility] Comment on above: Performed By: #### 2 [id number] #### [facility] [address] [place] [address] WBC corrected for nucl RBC Auto (Bld) [#/Vol] 8.7 E9/L Normal 4.0-11.0 [facility] Comment on above: Performed By: #### 2 [id number] #### [facility] [address] [place] [address] CHEMISTRYOrdered By: SYSTEM SYSTEM on 12-02-2024 Anion gap [Moles/Vol] 8 mmol/L Normal 6 - 16 mEq/L R emisol Chem Chloride [Moles/Vol] 109 mmol/L Normal 101 - 1 11 mmol/L Remisol Chem CO2 [Moles/Vol] 27 mmol/L Normal 21 - 31 mmol/L [facility] Creatinine [Mass/Vol] 0.6 mg/dL Normal 0.5 - 1.3 mg/dL [facility] Chem eGFR 93 mL/min/1.73 m2 Normal >=59mL/min /1 .73 m2 [facility] Potassium [Moles/Vol] 4.1 mmol/L Normal 3.5 - 5.3 mmol/L [facility] Sodium [Moles/Vol] 140 mmol/L Normal 135 - 145 mmol/L [facility] Urea nitrogen [Mass/Vol] 17 mg/dL Normal 5 - 21 mg/dL [facility] Creatinineon 12-02-2024 Creatinine [Mass/Vol] 0.6 mg/dL Normal 0.5-1.3 [facility] Comment on above: Performed By: #### 2 [id number] #### [facility] [address] [place] [address] Discharge Note-Nursingon Discharge Note-Nursing Discharge Note-Nursing DONNA ESTRELLA :1950 Visit Date:12/01/2024 Inpatient Discharge Instructions Your Care Team Admitting Physician - Harley Arciniega DO Referring Physician - Harley Arciniega DO Reason for Your Visit LEFT KNEE OA Your Diagnosis Arthritis of knee, left, Degenerative arthritis of left knee Tests Performed Path. Review -- Results Pending -- XR Knee 1 or 2 Views Left Please visit your patient portal for your results or contact your primary care physician. This Is Your Medications List acetaminophen (acetaminophen 500 mg Tab) bimatoprost ophthalmic (Lumigan 0.01% ophthalmic solution) cholecalciferol (Vitamin D3) dorzolamide-timolol ophthalmic (dorzolamide-timolol Opth 2%-0.5% Becca) multivitamin with minerals (Womens Pack oral tablet) omega-3 polyunsaturated fatty acids (Nature's Bounty Red Krill Oil 500 mg oral capsule) potassium chloride (potassium chloride 99 mg oral tablet) prednisoLONE ophthalmic (prednisoLONE Opth acetate 1% Susp 5 mL) tizanidine (tiZANidine 2 mg Tab) [Image Removed: STOP]Stop taking these medications cefdinir (cefdinir 300 mg Cap) docusate (Colace 100 mg Cap) Procedure History Cataract extraction and insertion of intraocular lens (2020), Cataract extraction and insertion of intraocular lens (03/21/2020), delivery, Cholecystectomy, CRPP (closed reduction and percutaneous pinning) of fracture of humerus, Open reduction and internal fixation of fracture, Procedure on knee, Sclerotherapy of vein of lower limb. Discharge Vitals Temperature (Axillary) 36.5 ???C Heart Rate (Monitored) 56 Respiratory Rate 18 Blood Pressure 123/71 Weight 99.4 kg What to do next Instructions From Your Doctor Event Name Event Result Pending Diagnostic Test Results None Previously Scheduled Follow-Up Appointments Friday 8:00 AM EDT With: Lorne GONZALEZ, Ramila Pascal Where: [facility] [address] [place] [address] [place] [address]- New Follow Up Appointments after Discharge Follow Up with Harley Arciniega When: 12/16/2024 09:45 AM EDT Where: [address] [place] [address]- Business (1) Follow Up with ALDEN WHEELER When: Comments: No need to see PCP at this time unless symptoms worsen. Where: [address] [facility], [place] [address]- Business (1) The Following Equipment Has Been Ordered for You Home Equipment, Arranged - Walker The Following Services Have Been Arranged for You Prof Skilled Services, Arranged - Occupational Therapy, Physical Therapy Medications What How Much When Instructions Next Dose Changed acetaminophen (acetaminophen 500 mg Tab) 1 Tablets By Mouth Every 4 hours Pickup at [facility] 1pm.4pm and 8pm Unchanged bimatoprost ophthalmic (Lumigan 0.01% ophthalmic solution) Ophthalmic Every day 12/03 @9am Unchanged cholecalciferol (Vitamin D3) 125 Microgram 12/03 @9am Unchanged dorzolamide-timolol ophthalmic (dorzolamide-timolol Opth 2%-0.5% Becca) Ophthalmic Every day 12/03 @9am Unchanged multivitamin with minerals (Womens Pack oral tablet) 1 Tablets By Mouth Every day 12/03 @9am Unchanged omega-3 polyunsaturated fatty acids (Nature's Bounty Red Krill Oil 500 mg oral capsule) 1 cap By Mouth Every day 12/03 @9am Unchanged potassium chloride (potassium chloride 99 mg oral tablet) 1 Tablets By Mouth Every day 12/03 @9am Unchanged prednisoLONE ophthalmic (prednisoLONE Opth acetate 1% Susp 5 mL) 1 Drops INSTILL 1 DROP INTO BOTH EYES 4 TIMES A DAY 12pm,4pm and 8pm Unchanged tizanidine (tiZANidine 2 mg Tab) Resume Pharmacy Information [id number]: [address] [place], [place] [id number] [phone] What How Much When Comments Stop Taking cefdinir (cefdinir 300 mg Cap) 2 Capsules By Mouth 2 times a day Stop Taking docusate (Colace 100 mg Cap) 1 Capsules By Mouth 2 times a day Test Results CBC BMP WBC: 8.7 E9/L (12/02/24 04:54:00) BUN: 17 mg/dL (12/02/24 04:54:00) RBC: 5 E12/L (12/02/24 04:54:00) Creatinine: 0.6 mg/dL (12/02/24 04:54:00) HGB: 10.2 gm/dL Low (12/02/24 04:54:00) Sodium Lvl: 140 mmol/L (12/02/24 04:54:00) Hct: 32.1 % Low (12/02/24 04:54:00) Potassium Lvl: 4.1 mmol/L (12/02/24 04:54:00) MCV: 64.4 fL Low (12/02/24 04:54:00) Chloride: 109 mmol/L (12/02/24 04:54:00) MCH: 20.5 pg Low (12/02/24 04:54:00) CO2: 27 mmol/L (12/02/24 04:54:00) MCHC: 31.8 gm/dL (12/02/24 04:54:00) AGAP: 8 mEq/L (12/02/24 04:54:00) RDW: 16 % High (12/02/24 04:54:00) Platelet: 187 E9/L (12/02/24 04:54:00) MPV: 9.6 fL (12/02/24 04:54:00) Allergies latanoprost ophthalmic (Itching) meloxicam (Bleeding) Problems Ongoing - Any problem that you are currently receiving treatment for. Anemia Arthritis Asymptomatic microscopic hematuria BMI 36.0-36.9,adult Former smoker Kidney stones Mixed incontinence (more content not included)... Normal [facility] EGFRon 12-02-2024 GFR/1.73 sq M.predicted CKD-EPI (S/P/Bld) [Vol rate/Area] 93 - [facility] LYTESon 12-02-2024 [facility] ANION GAP:SCNC:PT:SER/PLAS: QN: 8 [facility] HEMATOLOGYOrdered By: SYSTEM SYSTEM on 12-02-2024 Anisocytosis Ql (Bld) PRESENT *NA* (12/02/24 4:54 AM) Invalid Interpretation Code Remisol Heme Basophilic stippling LM Ql (Bld) PRESENT *NA* (12/02/24 4:54 AM) Invalid Interpretation Code Remisol Heme Basophils/100 WBC (Bld) 0.2 % Normal 0.0 - 2.0 % Remisol Heme Basophils/Leukocytes Auto (Bld) [Pure # fraction] 0.0 E9/L Normal 0.0 - 0.2 E9/L Remisol Heme Eosinophils (Bld) [#/Vol] 0.0 E9/L Normal 0.0 - 0.5 E9/L Remisol Heme Eosinophils/100 WBC (Bld) 0.0 % Normal 0.0 - 8.0 % Remisol Heme Erythrocyte distribution width (RBC) [Ratio] 16.0 % High 10.9 - 14.2 % Remisol Heme Hematocrit (Bld) [Volume fraction] 32.1 % Low 34.0 - 46.0 % Remisol Heme Hemoglobin (Bld) [Mass/Vol] 10.2 g/dL Low 12.0 - 16.0 gm/dL Remisol Heme Lymphocytes (Bld) [#/Vol] 0.9 E9/L Low 1.0 - 4.0 E9/L Remisol Heme Lymphocytes/100 WBC (Bld) 10.4 % Low 14.0 - 50.0 % Remisol Heme MCH (RBC) [Entitic mass] 20.5 pg Low 27.0 - 34.0 pg Remisol Heme MCHC (RBC) [Mass/Vol] 31.8 g/dL Normal 31.4 - 36.0 gm/dL Remisol Heme MCV (RBC) [Entitic vol] 64.4 fL Low 80.0 - 100.0 fL Remisol Heme Microcytes Ql (Bld) PRESENT *NA* (12/02/24 4:54 AM) Invalid Interpretation Code Remisol Heme Monocytes (Bld) [#/Vol] 0.9 E9/L Normal 0.2 - 1.0 E9/L Remisol Heme Monocytes/100 WBC (Bld) 10.8 % Normal 4.0 - 14.0 % Remisol Heme Neutrophils (Bld) [#/Vol] 6.8 E9/L Normal 2.0 - 7.5 E9/L Remisol Heme Neutrophils/100 WBC (Bld) 78.6 % High 36.0 - 75.0 % Remisol Heme Ovalocytes LM Ql (Bld) PRESENT *NA* (12/02/24 4:54 AM) Invalid Interpretation Code Remisol Heme Platelet mean volume (Bld) [Entitic vol] 9.6 fL Normal 6.4 - 10.8 fL Remisol Heme Platelets (Bld) [#/Vol] 187.0 E9/L Normal 150.0 - 500.0 E9/L Remisol Heme Poikilocytosis Auto Ql (Bld) PRESENT *NA* (12/02/24 4:54 AM) Invalid Interpretation Code Remisol Heme RBC (Bld) [#/Vol] 5.0 E12/L Normal 4.3 - 5.9 E12/L Remisol Heme RBC size Nom (Bld) SEE MORPHOLOGY *NA* (12/02/24 4:54 AM) Invalid Interpretation Code Remisol Heme Target cells LM Ql (Bld) PRESENT *NA* (12/02/24 4:54 AM) Invalid Interpretation Code Remisol Heme WBC corrected for nucl RBC Auto (Bld) [#/Vol] 8.7 E9/L Normal 4.0 - 11.0 E9/L Remisol Heme Inpatient Clinical Summaryon 12-02-2024 Inpatient Clinical Summary Inpatient Clinical Summary [place] [address] Clinical Summary Person Information: Name: DONNA ESTRELLA Age: 74 Years : 1950 Sex: Female PCP: ALDEN WHEELER DO Marital Status: Race: White Ethnicity: Non- or Language: Korean Visit Id: Visit Reason: LEFT KNEE OA Speciality: Acuity: Enc Type: Outpatient in a Bed Med Service: Surgery Arrival: 12/01/2024 05:29:31 Discharge: Dispo Type: Address: [address] [place] [id number] Provider Notes: Patient: DONNA ESTRELLA Age: 74 years Sex: Female : 1950 Associated Diagnoses: None Author: Harley Arciniega DO Discharge Information Discharge Summary Information: Admit Date/Time: 12/01/24 05:29 Discharge Date/Time: 12/02/24 07:44 Admitting Physician: Harley Arciniega DO Referring Physician for Admission: Harley Arciniega DO Consulting Physicians: none Admitting Diagnoses: DJD L knee procedure: L TKA discharge disposition: home Discharge Diagnoses: Unilateral primary osteoarthritis, left knee Prescription and Home Meds: acetaminophen (acetaminophen 500 mg Tab) 500 mg, 1 tab(s), Oral, q4hr, 60 tab(s), 0 Refill(s) bimatoprost ophthalmic (Lumigan 0.01% ophthalmic solution) OPTH, Daily, 0 Refill(s) cholecalciferol (Vitamin D3) 125 mcg dorzolamide-timolol ophthalmic (dorzolamide-timolol Opth 2%-0.5% Becca) OPTH, Daily, 0 Refill(s) multivitamin with minerals (Womens Pack oral tablet) 1 tab(s), Oral, Daily, 0 Refill(s) omega-3 polyunsaturated fatty acids (Ro[employer]s Bounty Red Krill Oil 500 mg oral capsule) 1 cap, Oral, Daily, 0 Refill(s) potassium chloride (potassium chloride 99 mg oral tablet) 99 mg, 1 tab(s), Oral, Daily, 100 tab(s), 0 Refill(s) prednisoLONE ophthalmic (prednisoLONE Opth acetate 1% Susp 5 mL) 1 drop(s), INSTILL 1 DROP INTO BOTH EYES 4 TIMES A DAY tizanidine (tiZANidine 2 mg Tab) 0 Refill(s) Diagnosis: Degenerative arthritis of left knee Problems Active Renal cysts, acquired, bilateral Ureteral stone with hydronephrosis Ureteral stone Kidney stones Nocturia BMI 36.0-36.9,adult Asymptomatic microscopic hematuria Former smoker Mixed incontinence Arthritis Anemia Smoking Status: Functional Status: Sensory Deficits: History of Falls: Mobility Assistance Prior to Admission: ADLs: Minimal assistance Current Level of Assistance for Self-Care/Mobility: Cognitive Status: Allergies latanoprost ophthalmic (Itching) meloxicam (Bleeding) Measurements: Height: Weight: 99.4 kg Blood Pressure: 123 mmHg / 71 mmHg BMI: Procedures No Procedures Documented Immunizations No Immunizations Documented This Visit Final Med List: acetaminophen (acetaminophen 500 mg Tab) 1 Tablets By Mouth every 4 hours. Refills: 0. bimatoprost ophthalmic (Lumigan 0.01% ophthalmic solution) Ophthalmic every day. cholecalciferol (Vitamin D3) 125 Microgram. dorzolamide-timolol ophthalmic (dorzolamide-timolol Opth 2%-0.5% Becca) Ophthalmic every day. multivitamin with minerals (Womens Pack oral tablet) 1 Tablets By Mouth every day. omega-3 polyunsaturated fatty acids (Nature's Bounty Red Krill Oil 500 mg oral capsule) 1 cap By Mouth every day. potassium chloride (potassium chloride 99 mg oral tablet) 1 Tablets By Mouth every day. prednisoLONE ophthalmic (prednisoLONE Opth acetate 1% Susp 5 mL) 1 Drops. INSTILL 1 DROP INTO BOTH EYES 4 TIMES A DAY. tizanidine (tiZANidine 2 mg Tab) Care Team Members: Attending Physician: Harley Arciniega DO Consulting Physician: Referring Physician: Harley Arciniega DO Follow up: With: Address: When: ALDEN WHEELER [address] [place] [address] Business (1) Comments: No need to see PCP at this time unless symptoms worsen. With: Address: When: Harley Arciniega [address] [place] [address] Business (1) 12/16/2024 9:45 AM Type Location Start [facility] Office Visit [facility] 05/18/2025 8:00 AM 05/18/2025 8:15 AM Confirmed Patient Education Information: Ignacio Arciniega - Total Knee Arthroplasty (Custom) Normal [facility] Inpatient Patient Summaryon 12-02-2024 Inpatient Patient Summary Inpatient Patient Summary [address] [address] Patient Discharge Instructions PERSON INFORMATION Name: DONNA ESTRELLA Date of : 1950 Current Date: 12/02/2024 08:07:06 PHYSICIANS Admitting Physician: Harley Arciniega DO Primary Care Physician: ALDEN WHEELER DO PCP Comment: Discharge Diagnosis: Degenerative arthritis of left knee Condition at Discharge: Improved DONNA ESTRELLA has been given the following list of follow-up instructions, prescriptions, and patient education materials: PATIENT FOLLOW-UP INFORMATION Diet: Discharge Activity: Discharge Restrictions: Wound Care Instructions: Remove Your Dressing In Days Call Your Doctor For: IF UNABLE TO CONTACT YOUR PHYSICIAN AND YOU FEEL IT IS AN EMERGENCY, GO TO THE NEAREST EMERGENCY ROOM OR CALL 911 Home Treatment: Devices/Equipment: Special Services: Additional Instructions: Primary Care Physician to provide the following pending test results: None Follow up: With: Address: When: ALDEN SUMMER [address] [facility], [place] [address] Business (1) Comments: No need to see PCP at this time unless symptoms worsen. With: Address: When: Harley Arciniega [address] [place] [address] [place] [address] Business (1) 12/16/2024 9:45 AM In the event that this physician does not participate in your insurance network, please consult with your insurance company to find a nearby participating provider. Type Location Start [facility] Office Visit [facility] KATIE Cardenas 05/18/2025 8:00 AM 05/18/2025 8:15 AM Confirmed Comment: DELORES Abel SHIRLEY A, have received the attached patient education materials/instructions and have verbalized understanding: Patient Signature Date Clinican/Nurse Signature ___ Date HERE ARE THE MEDICATION CHANGES THAT OCCURRED DURING YOUR HOSPITAL STAY Medications to Continue Taking That Have Changed [id number], [address] [place] [id number], [phone] START: acetaminophen (acetaminophen 500 mg Tab) 1 Tablets By Mouth every 4 hours. Refills: 0. Last Dose: ___Next Dose: ___ STOP: acetaminophen (Tylenol 8 HR Arthritis Pain) 650 Milligram By Mouth 2 times a day. STOP: acetaminophen (Tylenol) 500 Milligram By Mouth 2 times a day. Medications to Continue with No Changes Other Medications bimatoprost ophthalmic (Lumigan 0.01% ophthalmic solution) Ophthalmic every day. Last Dose: ___Next Dose: ___ cholecalciferol (Vitamin D3) 125 Microgram. Last Dose: ___Next Dose: ___ dorzolamide-timolol ophthalmic (dorzolamide-timolol Opth 2%-0.5% Becca) Ophthalmic every day. Last Dose: ___Next Dose: ___ multivitamin with minerals (Womens Pack oral tablet) 1 Tablets By Mouth every day. Last Dose: ___Next Dose: ___ omega-3 polyunsaturated fatty acids (Nature's Bounty Red Krill Oil 500 mg oral capsule) 1 cap By Mouth every day. Last Dose: ___Next Dose: ___ potassium chloride (potassium chloride 99 mg oral tablet) 1 Tablets By Mouth every day. Last Dose: ___Next Dose: ___ prednisoLONE ophthalmic (prednisoLONE Opth acetate 1% Susp 5 mL) 1 Drops. INSTILL 1 DROP INTO BOTH EYES 4 TIMES A DAY. Last Dose: ___Next Dose: ___ tizanidine (tiZANidine 2 mg Tab) Last Dose: ___Next Dose: ___ No Longer Take the Following Medications cefdinir (cefdinir 300 mg Cap) 2 Capsules By Mouth 2 times a day. docusate (Colace 100 mg Cap) 1 Capsules By Mouth 2 times a day. Comment: MEDICATION LIST PROVIDED FOR YOU IS A LIST OF YOUR CURRENT MEDICATIONS. PLEASE CARRY THIS WITH YOU AT ALL TIMES. acetaminophen (acetaminophen 500 mg Tab) 1 Tablets By Mouth every 4 hours. Refills: 0. bimatoprost ophthalmic (Lumigan 0.01% ophthalmic solution) Ophthalmic every day. cholecalciferol (Vitamin D3) 125 Microgram. dorzolamide-timolol ophthalmic (dorzolamide-timolol Opth 2%-0.5% Becca) Ophthalmic every day. multivitamin with minerals (Womens Pack oral tablet) 1 Tablets By Mouth every day. omega-3 polyunsaturated fatty acids (Nature's Bounty Red Krill Oil 500 mg oral capsule) 1 cap By Mouth every day. potassium chloride (potassium chloride 99 mg oral tablet) 1 Tablets By Mouth every day. prednisoLONE ophthalmic (prednisoLONE Opth acetate 1% Susp 5 mL) 1 Drops. INSTILL 1 DROP INTO BOTH EYES 4 TIMES A DAY. tizanidine (tiZANidine 2 mg Tab) Pharmacy Information: [facility] [place] Comment: PATIENT EDUCATION INFORMATION Instructions: [facility] (more content not included)... Normal [facility] Interdisciplinary Note - Chan e Manageron 12-02-2024 Interdisciplinary Note - Rotary Veneer Machine Operator Interdisciplinary Note - Rotary Veneer Machine Operator CM followed up with patient and at bedside. Plan is to DC home today with Progressive. Patient updated on program and has FWW in room. OT recs ADL kit and to get it at gift shop. Patient denies any additional needs at this time. [facility] Comment on above: Result Comment: Elec tronically Signed By: Sarah Espinal\Date and Time Signed: 12/02/24 10:25 EDT [place] 12-02-2024 Chloride [Moles/Vol] 109 mmol/L Normal 101-111 [facility] Comment on above: Performed By: #### 2 [id number] #### [facility] [address] [place] [address] CO2 [Moles/Vol] 27 mmol/L Normal 21-31 [facility] Comment on above: Performed By: #### 2 [id number] #### [facility] [address] [place] [address] Potassium [Moles/Vol] 4.1 mmol/L Normal 3.5-5.3 [facility] Comment on above: Performed By: #### 2 [id number] #### [facility] [address] [place] [address] Sodium [Moles/Vol] 140 mmol/L Normal 135-145 [facility] Comment on above: Performed By: #### 2 [id number] #### [facility] [address] [place] [address] Anion gap [Moles/Vol] 8 mmol/L Normal 6-16 [facility] Comment on above: Performed By: #### 2 [id number] #### [facility] [address] [place] [address] Main OR Intraoperative Recor don 12-02-2024 Main OR Intraoperative Record Main OR Intraoperative Record IntraOp Document Type FT Summary Primary Physician: Harley Arciniega DO Finalized Date/Time: 12/02/24 12:14:09 Pt. Name: DONNA ESTRELLA/Sex: 1950 Female Med Rec #: [id number] Physician: Harley Arciniega DO Financial #: [id number] Pt. Type: O Room/Bed: N318/01 Admit/Disch: 12/01/24 05:29:31 - 12/02/24 11:46:26 Institution: Case Times FT Entry 1 Patient Times In Room 12/01/24 07:16:00 Out Room 12/01/24 09:35:00 Procedure Times Start 12/01/24 07:51:00 Stop 12/01/24 09:31:00 Anesthesia Times Start 12/01/24 07:16:00 Stop 12/01/24 09:35:00 Block Timeout w12/01/24 07:03:00 Anesthesia Last Modified By: Alma Azar 12/01/24 09:35:20 General Comments: BLOCK TIME OUT AT 0703 WITH LARISA Germain CRNA AND ANDER Chávez RNFA ASSISTING. HEART RATE 62 BPM AND SPO2 97% ON SPO2 ROOM AIR.PATIENT TOLERATED WELL THEN TRANSPORTED TO THE OR.CAMI RODRIGUEZ. Case Attendance FT Entry 1 Entry 2 Entry 3 Case Attendee Larisa THOMPSON, Marta Arciniega DO, Alma Onofre Role Performed BATH STEWARD Surgeon - Primary Artificial Fly Tier - Primary Time In 12/01/24 07:16:00 12/01/24 07:40:00 12/01/24 07:16:00 Time Out 12/01/24 09:35:00 12/01/24 09:15:00 12/01/24 09:25:00 Procedure KNEE TOTAL ROBOT KNEE TOTAL ROBOT KNEE TOTAL ROBOT ARTHROPLASTY(Left) ARTHROPLASTY(Left) ARTHROPLASTY(Left) Comments IS SUPERVISING Last Modified By: Alma Azar Kelsie E Burgderfer, Kelsie E 12/01/24 09:39:18 12/01/24 09:39:18 12/01/24 09:39:18 Entry 4 Entry 5 Entry 6 Case Attendee Mane WILLAMS, Rosmery Espinosa DISTRIBUTION DRIVER, Adriana Cesar RN, Tim Chávez Role Performed Scrub - Primary DISTRIBUTION DRIVER/SA Staff - Other Time In 12/01/24 07:16:00 12/01/24 07:16:00 12/01/24 07:16:00 Time Out 12/01/24 09:35:00 12/01/24 09:35:00 12/01/24 09:16:00 Procedure KNEE TOTAL ROBOT KNEE TOTAL ROBOT KNEE TOTAL ROBOT ARTHROPLASTY(Left) ARTHROPLASTY(Left) ARTHROPLASTY(Left) Comments 2ND SCRUB Last Modified By: Alma Azar Kelsie E Burgderfer, Kelsie E 12/01/24 09:39:18 12/01/24 09:39:18 12/01/24 09:39:18 Entry 7 Entry 8 Entry 9 Case Attendee Wesly ALMANZA, Ruthann Caldwell RN, CNOR, Carol Jarrell RN, Ruthann Felton Role Performed Staff - Other Staff - Other Artificial Fly Tier - Relief Time In 12/01/24 07:16:00 12/01/24 07:16:00 12/01/24 09:25:00 Time Out 12/01/24 07:36:00 12/01/24 07:19:00 12/01/24 09:35:00 Procedure KNEE TOTAL ROBOT KNEE TOTAL ROBOT KNEE TOTAL ROBOT ARTHROPLASTY(Left) ARTHROPLASTY(Left) ARTHROPLASTY(Left) Comments HELPING IN THE ROOM ASSISTED WITH BLOCK AND TRANSPORTING PATIENT TO THE OR Last Modified By: Alma Azar Kelsie E Burgderfer, Kelsie E 12/01/24 09:39:18 12/01/24 09:39:18 12/01/24 09:39:18 General Comments: MELODY JARA, IN ATTENDANCE.CAMI RODRIGUEZ. Perioperative Protocols FT Pre-Care Text: Implements protective measures prior to operative or invasive procedure, confirms identity before the operative or invasive procedure, verifies operative procedure, surgical site, and laterality Entry 1 Procedure(s) KNEE TOTAL ROBOT Patient Identity Birthday, ID Band ARTHROPLASTY(Left) Verified (select at Check, Patient least 2): Participation Consents / H and P Anesthesia Consent, Operative Site Present Verified H&P, Surgery/Procedure Marking Verified Consent, Transfusion Consent Surgical Site Yes Laterality Verified Yes Verified Procedure Verified Yes Correct Patient Yes Position Verified Availability Equipment, Implant, Prep Dry n/a Verified (If Medication Applicable) PreOp Antibiotic Yes Time Out Marta Peres CRNA, Given Participants Harley Arciniega DO, Alma Azar, Mane RULING MACHINE FEEDER, Jesús Arvizu CST, Arsenio Martinez RN, Tim Chávez Time Out Complete 12/01/24 07:49:00 Outcomes Met? Yes Last Modified By: Alma Azar 12/01/24 08:00:34 Post-Care Text: The patient is free from signs and symptoms of injury caused by extraneous objects Allergy Information FT Pre-Care Text: Verifies allergies Entry 1 Allergies Reviewed? Yes Allergies Reviewed Self/Patient With Outcomes Met? Yes Last Modified By: Alma Azar 12/01/24 07:57:34 Post-Care Text: The patient received appropriate medication(s) safely administered during the perioperative period Surgical Procedures FT Entry 1 Procedure Description Procedure KNEE TOTAL ROBOT Modifiers Left ARTHROPLASTY Surgeon Description LEFT TOTAL KNEE ARTHROPLASTY ROBOTIC ASSISTED Primary Procedure Yes Primary Surgeon Harley Arciniega DO Start 12/01/24 07:51:00 Stop 12/01/24 09:31:00 Anesthesia Type General Surgical Service Orthopedics Wound Class 1 - Clean Last Modified By: Felipa Dwyer CST 12/02/24 12:12:37 General Case Data FT Pre-Care Text: Classifies surgical wound, implements aseptic technique, initiates traffic control Entry 1 Case Information OR OR 5 FT Case Level Level 6 (more content not included)... Normal [facility] No Panel Informationon 12-02 Original Ordering Provider: DO Harley Arciniega [facility] eGFRon 12-02-2024 eGFR 93 mL/min/1.73 m2 Normal >=59 [facility] Comment on above: Performed By: #### 1 [id number] #### [facility] [address] [place] [address] ABO/Rhon 12-01-2024 ABO/Rh Positive Invalid Interpretation Code [facility] Comment on above: Performed By: #### 2 [id number] #### [facility] [address] [place] [address] ABO/Rh History Checkon 12-01 ABO/Rh History Check Verified Hx Blood Type Normal [facility] Comment on above: Performed By: #### 1 [id number] #### [facility] [address] [place] [address] ABSCon 12-01-2024 ABSC Gel Interp Negative Normal [facility] Comment on above: Performed By: #### 1 [id number] ####[facility] [id number] [place] [address] BLOOD BANKOrdered By: Miles Zaldivar on 12-01-2024 ABO/Rh Interp Positive Invalid Interpretation Code [facility] BB Subsection ABSC Gel Interp Negative (12/01/24 6:22 AM) Normal [facility] BB Subsection Blood Bank ID#on 12-01-2024 BBID# [id number] Invalid Interpretation Code [facility] Comment on above: Performed By: #### 1 [id number] #### [facility] [address] [place] [address] Inpatient Clinical Summaryon 12-01-2024 Inpatient Clinical Summary Inpatient Clinical Summary [address] [address] Clinical Summary Person Information: Name: DONNA ESTRELLA Age: 74 Years : 1950 Sex: Female PCP: ALDEN WHEELER DO Marital Status: Race: White Ethnicity: Non- or Language: Korean Visit Id: Visit Reason: LEFT KNEE OA Speciality: Acuity: Enc Type: Outpatient in a Bed Med Service: Surgery Arrival: 12/01/2024 05:29:31 Discharge: Dispo Type: Address: [address] [place] [phone] Provider Notes: Diagnosis: Degenerative arthritis of left knee Problems Active Renal cysts, acquired, bilateral Ureteral stone with hydronephrosis Ureteral stone Kidney stones Nocturia BMI 36.0-36.9,adult Asymptomatic microscopic hematuria Former smoker Mixed incontinence Arthritis Anemia Smoking Status: Functional Status: Sensory Deficits: History of Falls: Mobility Assistance Prior to Admission: ADLs: Minimal assistance Current Level of Assistance for Self-Care/Mobility: Cognitive Status: Allergies latanoprost ophthalmic (Itching) meloxicam (Bleeding) Measurements: Height: Weight: Blood Pressure: 125 mmHg / 73 mmHg BMI: Procedures No Procedures Documented Immunizations No Immunizations Documented This Visit Final Med List: acetaminophen (acetaminophen 500 mg Tab) 1 Tablets By Mouth every 4 hours. Refills: 0. bimatoprost ophthalmic (Lumigan 0.01% ophthalmic solution) Ophthalmic every day. cholecalciferol (Vitamin D3) 125 Microgram. dorzolamide-timolol ophthalmic (dorzolamide-timolol Opth 2%-0.5% Becca) Ophthalmic every day. multivitamin with minerals (Womens Pack oral tablet) 1 Tablets By Mouth every day. omega-3 polyunsaturated fatty acids (Nature's Bounty Red Krill Oil 500 mg oral capsule) 1 cap By Mouth every day. potassium chloride (potassium chloride 99 mg oral tablet) 1 Tablets By Mouth every day. prednisoLONE ophthalmic (prednisoLONE Opth acetate 1% Susp 5 mL) 1 Drops. INSTILL 1 DROP INTO BOTH EYES 4 TIMES A DAY. tizanidine (tiZANidine 2 mg Tab) Care Team Members: Attending Physician: Harley Arciniega DO Consulting Physician: Referring Physician: Harley Arciniega DO Follow up: With: Address: When: [place] [address] Business (1) 12/16/2024 9:45 AM Type Location Start Finish State [facility] Office Visit [facility] 05/18/2025 8:00 AM 05/18/2025 8:15 AM Confirmed Patient Education Information: Ignacio Arciniega - Total Knee Arthroplasty (Custom) [facility] Inpatient Patient Summaryon 12-01-2024 Inpatient Patient Summary Inpatient Patient Summary [address] [address] Patient Discharge Instructions PERSON INFORMATION Name: DONNA ESTRELLA Date of : 1950 Current Date: 12/01/2024 16:06:19 PHYSICIANS Admitting Physician: Harley Arciniega DO Primary Care Physician: ALDEN WHEELER DO PCP Comment: Discharge Diagnosis: Degenerative arthritis of left knee Condition at Discharge: Improved DONNA ESTRELLA has been given the following list of follow-up instructions, prescriptions, and patient education materials: PATIENT FOLLOW-UP INFORMATION Diet: Discharge Activity: Discharge Restrictions: Wound Care Instructions: Remove Your Dressing In Days Call Your Doctor For: IF UNABLE TO CONTACT YOUR PHYSICIAN AND YOU FEEL IT IS AN EMERGENCY, GO TO THE NEAREST EMERGENCY ROOM OR CALL 911 Home Treatment: Devices/Equipment: Special Services: Additional Instructions: Primary Care Physician to provide the following pending test results: None Follow up: With: Address: When: [place] [address] Business () 12/16/2024 9:45 AM In the event that this physician does not participate in your insurance network, please consult with your insurance company to find a nearby participating provider. Type Location Start Finish State [facility] Office Visit [facility] KATIE Cardenas 05/18/2025 8:00 AM 05/18/2025 8:15 AM Confirmed Comment: DELORES Abel SHIRLEY A, have received the attached patient education materials/instructions and have verbalized understanding: Patient Signature Date Clinican/Nurse Signature ___ Date HERE ARE THE MEDICATION CHANGES THAT OCCURRED DURING YOUR HOSPITAL STAY Medications to Continue Taking That Have Changed [employer] [id number], [address] [place], [place] [id number], [phone] START: acetaminophen (acetaminophen 500 mg Tab) 1 Tablets By Mouth every 4 hours. Refills: 0. Last Dose: ___Next Dose: ___ STOP: acetaminophen (Tylenol 8 HR Arthritis Pain) 650 Milligram By Mouth 2 times a day. STOP: acetaminophen (Tylenol) 500 Milligram By Mouth 2 times a day. Medications to Continue with No Changes Other Medications bimatoprost ophthalmic (Lumigan 0.01% ophthalmic solution) Ophthalmic every day. Last Dose: ___Next Dose: ___ cholecalciferol (Vitamin D3) 125 Microgram. Last Dose: ___Next Dose: ___ dorzolamide-timolol ophthalmic (dorzolamide-timolol Opth 2%-0.5% Becca) Ophthalmic every day. Last Dose: ___Next Dose: ___ multivitamin with minerals (Womens Pack oral tablet) 1 Tablets By Mouth every day. Last Dose: ___Next Dose: ___ omega-3 polyunsaturated fatty acids (Nature's Bounty Red Krill Oil 500 mg oral capsule) 1 cap By Mouth every day. Last Dose: ___Next Dose: ___ potassium chloride (potassium chloride 99 mg oral tablet) 1 Tablets By Mouth every day. Last Dose: ___Next Dose: ___ prednisoLONE ophthalmic (prednisoLONE Opth acetate 1% Susp 5 mL) 1 Drops. INSTILL 1 DROP INTO BOTH EYES 4 TIMES A DAY. Last Dose: ___Next Dose: ___ tizanidine (tiZANidine 2 mg Tab) Last Dose: ___Next Dose: ___ No Longer Take the Following Medications cefdinir (cefdinir 300 mg Cap) 2 Capsules By Mouth 2 times a day. docusate (Colace 100 mg Cap) 1 Capsules By Mouth 2 times a day. Comment: MEDICATION LIST PROVIDED FOR YOU IS A LIST OF YOUR CURRENT MEDICATIONS. PLEASE CARRY THIS WITH YOU AT ALL TIMES. acetaminophen (acetaminophen 500 mg Tab) 1 Tablets By Mouth every 4 hours. Refills: 0. bimatoprost ophthalmic (Lumigan 0.01% ophthalmic solution) Ophthalmic every day. cholecalciferol (Vitamin D3) 125 Microgram. dorzolamide-timolol ophthalmic (dorzolamide-timolol Opth 2%-0.5% Becca) Ophthalmic every day. multivitamin with minerals (Womens Pack oral tablet) 1 Tablets By Mouth every day. omega-3 polyunsaturated fatty acids (Nature's Bounty Red Krill Oil 500 mg oral capsule) 1 cap By Mouth every day. potassium chloride (potassium chloride 99 mg oral tablet) 1 Tablets By Mouth every day. prednisoLONE ophthalmic (prednisoLONE Opth acetate 1% Susp 5 mL) 1 Drops. INSTILL 1 DROP INTO BOTH EYES 4 TIMES A DAY. tizanidine (tiZANidine 2 mg Tab) Pharmacy Information: [facility] Ronald Comment: PATIENT EDUCATION INFORMATION Instructions: [place] [place] [facility] DISCHARGE INSTRUCTIONS: TOTAL KNEE ARTHROPLASTY INCISION CARE: The bandage may be changed by your home Physical Therapist at 7 (more content not included)... [facility] Inpatient Patient Summary Inpatient Patient Summary [address] [address] [facility] Clinical Discharge Instructions PERSON INFORMATION Name: DONNA ESTRELLA [facility]#:[id number] PHYSICIANS Admitting Physician: Harley Arciniega DO Attending Physician: Harley Arciniega DO PCP: ALDEN WHEELER DO Discharge Diagnosis: Degenerative arthritis of left knee Comment: PATIENT EDUCATION INFORMATION Instructions: Ignacio Arciniega - Total Knee Arthroplasty (Custom) Medication Leaflets: Follow up: With: Address: When: Harley Arciniega [address] [place], [place] [id number] Business (1) 12/16/2024 9:45 AM Type Location Start Finish State [facility] 05/18/2025 8:00 AM 05/18/2025 8:15 AM Confirmed MEDICATION LIST New Medications [facility] [id number], [address] [place], [place] [id number], [phone] aspirin (aspirin 81 mg Oral EC Tab) 1 Tablets By Mouth every day for 90 Days. Refills: 0. celecoxib (CeleBREX 100 mg Cap) 1 Capsules By Mouth 2 times a day. Refills: 0. cephalexin (Keflex 500 mg Cap) 1 Capsules By Mouth every 8 hours for 7 Days. Refills: 0. oxycodone (oxyCODONE 5 mg Tab) 1-2 tab(s) Oral q4hr; as needed for pain. Refills: 0. Medications to Continue Taking That Have Changed [facility] [address], [address] [place], [place] [id number], [phone] START: acetaminophen (acetaminophen 500 mg Tab) 1 Tablets By Mouth every 4 hours. Refills: 0. START: docusate (Colace 100 mg Cap) 1 Capsules By Mouth 2 times a day. Refills: 0. Medications to Continue with No Changes Other Medications bimatoprost ophthalmic (Lumigan 0.01% ophthalmic solution) Ophthalmic every day. cholecalciferol (Vitamin D3) 125 Microgram. dorzolamide-timolol ophthalmic (dorzolamide-timolol Opth 2%-0.5% Becca) Ophthalmic every day. multivitamin with minerals (Womens Pack oral tablet) 1 Tablets By Mouth every day. omega-3 polyunsaturated fatty acids (Nature's Bounty Red Krill Oil 500 mg oral capsule) 1 cap By Mouth every day. potassium chloride (potassium chloride 99 mg oral tablet) 1 Tablets By Mouth every day. prednisoLONE ophthalmic (prednisoLONE Opth acetate 1% Susp 5 mL) 1 Drops. INSTILL 1 DROP INTO BOTH EYES 4 TIMES A DAY. tizanidine (tiZANidine 2 mg Tab) No Longer Take the Following Medications cefdinir (cefdinir 300 mg Cap) 2 Capsules By Mouth 2 times a day. Comment: [facility] Interdisciplinary Note - Chan e Manageron 12-01-2024 Interdisciplinary Note - Rotary Veneer Machine Operator Interdisciplinary Note - Rotary Veneer Machine Operator CM met with patient at bedside. Patient is from home and lives with in a ranch style home with 2 KAZ. Patient is usually independent with self care and had an old walker at home but was already set up with a new FWW in the room for CT. Patient states she has supportive family at home and family will transport her home at CT. Patient is set up with [facility] at [place] for PT/OT. CM reviewed OBS status with patient and LEWIS already signed. Patient denies any additional DC needs at this time. CM to follow. [facility] Comment on above: Result Comment: Elec tronically Signed By: Sarah Espinal I\.lin\Date and Time Signed: 12/01/24 13:27 EDT Interdisciplinary Note - Meredith n 12-01-2024 Interdisciplinary Note - OT Interdisciplinary Note - OT Ot [facility] six clicks = services. Pt reports she will have family support from dtr and spouse when dcd to home and ortho 360 to follow up at home as well. OT serivces to follow 1-2 visits to instruct on adapted techniques for LE dressing and improve Ind w/ toilet transfers. [facility] Main OR Intraoperative Recor don 12-01-2024 Main OR Intraoperative Record Main OR Intraoperative Record IntraOp Document Type FT Summary Primary Physician: Harley Arciniega DO Finalized Date/Time: 12/01/24 09:39:23 Pt. Name: DONNA ESTRELLA D.O.B./Sex: 1950 Female Med Rec #: [id number] Physician: Harley Arciniega DO Financial #: [id number] Pt. Type: O Room/Bed: [place] [address] Admit/Disch: 12/01/24 05:29:31 - Institution: Case Times FT Entry 1 Patient Times In Room 12/01/24 07:16:00 Out Room 12/01/24 09:35:00 Procedure Times Start 12/01/24 07:51:00 Stop 12/01/24 09:31:00 Anesthesia Times Start 12/01/24 07:16:00 Stop 12/01/24 09:35:00 Block Timeout w/ 12/01/24 07:03:00 Anesthesia Last Modified By: Alma Azar 12/01/24 09:35:20 General Comments: BLOCK TIME OUT AT 0703 WITH LARISA Germain CRNA AND ANDER Chávez RNFA ASSISTING. HEART RATE 62 BPM AND SPO2 97% ON SPO2 ROOM AIR.PATIENT TOLERATED WELL THEN TRANSPORTED TO THE OR.CAMI RODRIGUEZ. Case Attendance FT Entry 1 Entry 2 Entry 3 Case Attendee Marta Peres CRNA, DO, Jason A Burgderfer, Kelsie E Role Performed BATH STEWARD Surgeon - Primary Artificial Fly Tier - Primary Time In 12/01/24 07:16:00 12/01/24 07:40:00 12/01/24 07:16:00 Time Out 12/01/24 09:35:00 12/01/24 09:15:00 12/01/24 09:25:00 Procedure KNEE TOTAL ROBOT KNEE TOTAL ROBOT KNEE TOTAL ROBOT ARTHROPLASTY(Left) ARTHROPLASTY(Left) ARTHROPLASTY(Left) Comments IS SUPERVISING Last Modified By: Alma Azar Kelsie E Burgderfer, Kelsie E 12/01/24 09:39:18 12/01/24 09:39:18 12/01/24 09:39:18 Entry 4 Entry 5 Entry 6 Case Attendee Mane WILLAMS, Rosmery Espinosa DISTRIBUTION DRIVER, Adriana Cesar RN, Tim Chávez Role Performed Scrub - Primary DISTRIBUTION DRIVER/SA Staff - Other Time In 12/01/24 07:16:00 12/01/24 07:16:00 12/01/24 07:16:00 Time Out 12/01/24 09:35:00 12/01/24 09:35:00 12/01/24 09:16:00 Procedure KNEE TOTAL ROBOT KNEE TOTAL ROBOT KNEE TOTAL ROBOT ARTHROPLASTY(Left) ARTHROPLASTY(Left) ARTHROPLASTY(Left) Comments 2ND SCRUB Last Modified By: Alma Azar Kelsie E Burgderfer, Kelsie E 12/01/24 09:39:18 12/01/24 09:39:18 12/01/24 09:39:18 Entry 7 Entry 8 Entry 9 Case Attendee Wesly ALMANZA, Ruthann Caldwell RN, CNOR, Carol Jarrell RN, Ruthann Felton Role Performed Staff - Other Staff - Other Artificial Fly Tier - Relief Time In 12/01/24 07:16:00 12/01/24 07:16:00 12/01/24 09:25:00 Time Out 12/01/24 07:36:00 12/01/24 07:19:00 12/01/24 09:35:00 Procedure KNEE TOTAL ROBOT KNEE TOTAL ROBOT KNEE TOTAL ROBOT ARTHROPLASTY(Left) ARTHROPLASTY(Left) ARTHROPLASTY(Left) Comments HELPING IN THE ROOM ASSISTED WITH BLOCK AND TRANSPORTING PATIENT TO THE OR Last Modified By: Alma Azar Kelsie E Burgderfer, Alma E 12/01/24 09:39:18 12/01/24 09:39:18 12/01/24 09:39:18 General Comments: MELODY JARA, IN ATTENDANCE.CAIM RODRIGUEZ. Perioperative Protocols FT Pre-Care Text: Implements protective measures prior to operative or invasive procedure, confirms identity before the operative or invasive procedure, verifies operative procedure, surgical site, and laterality Entry 1 Procedure(s) KNEE TOTAL ROBOT Patient Identity Birthday, ID Band ARTHROPLASTY(Left) Verified (select at Check, Patient least 2): Participation Consents / H and P Anesthesia Consent, Operative Site Present Verified H&P, Surgery/Procedure Marking Verified Consent, Transfusion Consent Surgical Site Yes Laterality Verified Yes Verified Procedure Verified Yes Correct Patient Yes Position Verified Availability Equipment, Implant, Prep Dry n/a Verified (If Medication Applicable) PreOp Antibiotic Yes Time Out Marta Peres CRNA, Given Participants Harley Arciniega DO, Alma Azar, Mane COLLIERN, Jesús Arvizu CST, Arsenio Martinez RN, Tim Chávez Time Out Complete 12/01/24 07:49:00 Outcomes Met? Yes Last Modified By: Alma Azar 12/01/24 08:00:34 Post-Care Text: The patient is free from signs and symptoms of injury caused by extraneous objects Allergy Information FT Pre-Care Text: Verifies allergies Entry 1 Allergies Reviewed? Yes Allergies Reviewed Self/Patient With Outcomes Met? Yes Last Modified By: Alma Azar 12/01/24 07:57:34 Post-Care Text: The patient received appropriate medication(s) safely administered during the perioperative period Surgical Procedures FT Entry 1 Procedure Description Procedure KNEE TOTAL ROBOT Modifiers Left ARTHROPLASTY Surgeon Description LEFT TOTAL KNEE ARTHROPLASTY ROBOTIC ASSISTED Primary Procedure Yes Primary Surgeon Harley Arciniega DO Start 12/01/24 07:51:00 Stop 12/01/24 09:31:00 Anesthesia Type MAC Surgical Service Orthopedics Wound Class 1 - Clean Last Modified By: Alma Azar 12/01/24 09:38:19 General Case Data FT Pre-Care Text: Classifies surgical wound, implements aseptic technique, initiates traffic control Entry 1 Case Information OR OR 5 FT Case Level Level 6 Wound Class 1 - Clean (more content not included)... [facility] Main OR PACU I Recordon Main OR PACU I Record Main OR PACU I Rec ord PACU Phase I Document Type FT Summary Primary Physician: Harley Arciniega DO Finalized Date/Time: 12/01/24 11:52:47 Pt. Name: DONNA ESTRELLA./Sex: 1950 Female Med Rec #: [id number] Physician: Harley Arciniega DO Financial #: [id number] Pt. Type: O Room/Bed: [place] [address] Admit/Disch: 12/01/24 05:29:31 - Institution: Case Times PACU I FT Pre-Care Text: Identifies barriers to communication and implements measures to provide psychological support Develops individualized plan of care, and ensures continuity of care Maintains patient's dignity and privacy, and maintains patient confidentiality Identifies and reports philosophical, cultural, and spiritual beliefs and values Identifies individual values and wishes concerning care Implements aseptic technique, and administers prescribed antibiotic therapy and immunizing agents as ordered Evaluates postoperative tissue perfusion Implements thermoregulation measures, and monitors body temperature Evaluates postoperative respiratory status Evaluates postoperative cardiac status Evaluates postoperative neurological status Assesses pain control, collaborated in initiating patient-controlled analgesia and implements alternative methods of pain control Verifies allergies, administers prescribed medications and solutions, evaluates response to medications Entry 1 In PACU I 12/01/24 09:37:00 Discharge from PACU 12/01/24 10:26:00 I Outcomes Met? Yes Last Modified By: Chanelle Zhu I 12/01/24 11:52:32 Post-Care Text: The patient demonstrates knowledge of the expected response to the operative or invasive procedure The patient's care is consistent with the individualized perioperative plan of care The patient's right to privacy is maintained The patient's value system, lifestyle, ethnicity, and culture are considered, respected, and incorporated into the perioperative plan of care The patient participates in decisions affecting his or her perioperative plan of care The patient is free from signs and symptoms of infection The patient has wound/tissue perfusion consistent with or improved from baseline levels established preoperatively The patient is at or returning to normothermia at the conclusion of the immediate postoperative period The patient's respiratory function is consistent with or improved from baseline levels established preoperatively The patient's cardiovascular status is consistent with or improved from baseline levels established preoperatively The patient's cardiovascular status is consistent with or improved from baseline levels established preoperatively The patient demonstrates and/or reports adequate pain control throughout the perioperative period The patient received appropriate medication(s), safely administered during the perioperative period Acuity Level PACU I FT Entry 1 Start Time 12/01/24 09:37:00 Stop Time 12/01/24 10:26:00 Acuity Level Acuity Level I Last Modified By: Chanelle Zhu I 12/01/24 11:52:43 Finalized By: Chanelle Zhu I Document Signatures Signed By: Chanelle Zhu I 12/01/24 11:52 [facility] Main OR Preoperative Recordo n 12-01-2024 Main OR Preoperative Record Main OR Preoperative Record PreOp Document Type FT Summary Primary Physician: Harley Arciniega DO Finalized Date/Time: 12/01/24 07:54:35 Pt. Name: JOHNSONSavanahDONNA/Sex: 1950 Female Med Rec #: [id number] Physician: Harley Arciniega DO Financial #: [id number] Pt. Type: O Room/Bed: [facility] Admit/Disch: 12/01/24 05:29:31 - Institution: Case Times PreOp FT Pre-Care Text: Verifies consent for planned procedure, identifies individual values and wishes concerning care, includes family members in perioperative teaching Entry 1 Patient Times. In Pre Surgery 12/01/24 05:45:00 Out Pre Surgery 12/01/24 07:01:00 Outcomes Met? Yes Last Modified By: Alma Azar 12/01/24 07:54:34 Post-Care Text: The patient participates in decisions affecting his or her perioperative plan of care Finalized By: Alma Azar Document Signatures Signed By: Alma Azar 12/01/24 07:54 [facility] Operative Reporton Operative Report Operative Report Patient: DONNA ESTRELLA Age: 74 years Sex: Female : 1950 Associated Diagnoses: None Author: Harley Arciniega DO DATE OF SURGERY: 12/01/2024 SURGEON: Harley Arciniega D.O. GAS OR PETROLEUM OPERATOR: Alberto Espinosa CFA PREOPERATIVE DIAGNOSIS: Advanced degenerative osteoarthrosis, left knee POSTOPERATIVE DIAGNOSIS: Advanced degenerative osteoarthrosis, left knee OPERATION: Left total knee arthroplasty utilizing [employer] robotic arm assistance ANESTHESIA: Spinal + regional block LIFE SCIENCES TEACHER: Marta Peres CRNA and Adriana Boone MD IMPLANTS USED: Melody Triathlon Total Knee System 1. size 5 cruciate retaining cementless femur 2. Size 9 mm X3 CS polyethylene 3. Size 5 Tritanium cementless tibial baseplate 4. Size 32 mm asymmetric Tritanium cementless patella OPERATIVE INDICATIONS: Donna is a 74-year-old female who has had persistent left knee pain despite numerous conservative measures. Her pain interferes with her activities of daily living, ability to sleep at night, and quality of life. She agreed to proceed with the above procedure after a discussion of the risks, benefits, complications, alternatives, and expectations. Please see office notes for further details. The patient's surgery was preplanned utilizing CT scan and [employer] software. This included the planned implant sizes and positions, bone resection, and ligament balancing. Modifications to the plan were made intraoperatively as appropriate. PROCEDURE: The correct operative site was identified and marked in the preoperative holding area. The patient was administered intravenous antibiotics in accordance with SCIP Protocol. She was also given a gram of tranexamic acid intravenously about 15 minutes prior to incision. She was transported to the Regional Anesthetic Block Room and administered a regional anesthetic nerve block by the anesthesiologist. I requested the nerve block to assist with intraoperative and postoperative pain control. She was transported to the Operating Room and administered a spinal anesthetic. She was then placed supine on the operating room table and a well padded tourniquet was applied to the operative upper thigh. The left upper extremity was secured across the patient's torso. The operative lower extremity was then prepped and draped in the usual sterile fashion. The foot was placed into a padded reagan and secured in the Melody knee positioner. Surgical time-out was performed with all required personnel present. The limb was exsanguinated with an Esmarch. Tourniquet was inflated to 300 mm Hg. A longitudinal incision over the anterior knee was made. Medial and lateral skin flaps were developed. Dissection was carried down through the subcutaneous layers. Medial parapatellar arthrotomy was performed and normal appearing joint fluid was encountered and suctioned. The intermeniscal ligament was then cut and soft tissue at the medial tibial plateau was peeled off of the bone with Bovie electrocautery. The fat pad was sharply excised. Tourniquet was deflated at 6 minutes and adequate perfusion was noted to return to the extremity. Areas of active bleeding were cauterized with the Bovie and Aquamantys. The tibial pins for the tibial array were placed through 2 stab incisions along the medial aspect of the proximal tibia. The tibial array was placed onto the pins and secured. The distal femoral pins for the femoral array were placed in the medial femoral condyle. The femoral array was affixed to the pins. The registration device was then placed into the distal femur just distal to the array pins along the medial femoral condyle. The tibial registration device was placed along the medial tibia distal to the planned tibial resection. The hip center, medial and lateral malleoli were registered. Registration points along the distal femur and proximal tibia were captured. Osteophytes were removed with a rongeur. Range of motion of the knee was then assessed with the computer. Preliminary ligament balancing was performed with the tensioning spoons in both flexion and extension and these values were captured by the computer. The knee had 23 degree flexion contracture and 4.5 degree of varus. Adjustments to the planned resection were made to balance the ligaments. The self-retaining medial and lateral retractors were then placed and secured to the leg reagan. Bone resection was then performed with computer guidance using the saw attached to the [employer] robotic arm. Femoral cuts were made including anterior, posterior, and chamfer cuts. The tibial cut was then made in the same fashion. The resected bone fragments were removed with osteotomes and freed from tissue with the bovie. Lamina tinware lithograph press operator was placed into the joint. Remaining meniscus and soft tissue were removed from the medial and lateral compartments. Posterior osteophytes removed from the condyles with an osteotome. Loose b (more content not included)... [facility] Comment on above: Result Comment: Elec tronically Signed By: Harley Arciniega DO\aiden\Date and Time Signed: 12/01/24 15:32 EDT Outpatient Surgery Discharge Instructionon 12-01-2024 Outpatient Surgery Discharge Instruction Outpatient Surgery Discharge Instruction [address] [address] Patient Discharge Instructions PERSON INFORMATION Name: DONNA ESTRELLA Date of : 1950 Current Date: 12/01/2024 07:13:41 PHYSICIANS Admitting Physician: Harley Arciniega DO Discharge Diagnosis: Degenerative arthritis of left knee DONNA ESTRELLA has been given the following list of follow-up instructions, prescriptions, and patient education materials: IF UNABLE TO CONTACT YOUR PHYSICIAN AND YOU FEEL IT IS AN EMERGENCY, GO TO THE NEAREST EMERGENCY ROOM OR CALL 911 I, DONNA ESTRELLA, have received the attached patient education materials/instructions and have verbalized understanding: May we do a follow up call? Yes No I was present when discharge instructions were given Patient Signature Date Clinican/Nurse Signature ___ Date Follow up: With: Address: When: Harley Arciniega [address] [place] [phone] Business (1) 12/16/2024 9:45 AM Type Location Start [facility] Office Visit [facility] [place] 05/18/2025 8:00 AM 05/18/2025 8:15 AM Confirmed Pharmacy Information: You may receive a survey from [facility] asking you to rate your care experience. Your feedback is important and will help us understand what we do well and how we can improve the quality of care we provide to you, your loved ones and our community. It???s an honor to serve you. Thank you for choosing [facility] HERE ARE THE MEDICATION CHANGES THAT OCCURRED DURING YOUR HOSPITAL STAY New Medications [employer] [id number], [address], [place] [id number], [phone] aspirin (aspirin 81 mg Oral EC Tab) 1 Tablets By Mouth every day for 90 Days. Refills: 0. celecoxib (CeleBREX 100 mg Cap) 1 Capsules By Mouth 2 times a day. Refills: 0. cephalexin (Keflex 500 mg Cap) 1 Capsules By Mouth every 8 hours for 7 Days. Refills: 0. oxycodone (oxyCODONE 5 mg Tab) 1-2 tab(s) Oral q4hr; as needed for pain. Refills: 0. Medications to Continue Taking That Have Changed [facility] [address], [address], [place] [id number], [phone] START: acetaminophen (acetaminophen 500 mg Tab) 1 Tablets By Mouth every 4 hours. Refills: 0. START: docusate (Colace 100 mg Cap) 1 Capsules By Mouth 2 times a day. Refills: 0. Medications to Continue with No Changes Other Medications bimatoprost ophthalmic (Lumigan 0.01% ophthalmic solution) Ophthalmic every day. cholecalciferol (Vitamin D3) 125 Microgram. dorzolamide-timolol ophthalmic (dorzolamide-timolol Opth 2%-0.5% Becca) Ophthalmic every day. multivitamin with minerals (Womens Pack oral tablet) 1 Tablets By Mouth every day. omega-3 polyunsaturated fatty acids (Nature's Bounty Red Krill Oil 500 mg oral capsule) 1 cap By Mouth every day. potassium chloride (potassium chloride 99 mg oral tablet) 1 Tablets By Mouth every day. prednisoLONE ophthalmic (prednisoLONE Opth acetate 1% Susp 5 mL) 1 Drops. INSTILL 1 DROP INTO BOTH EYES 4 TIMES A DAY. tizanidine (tiZANidine 2 mg Tab) No Longer Take the Following Medications cefdinir (cefdinir 300 mg Cap) 2 Capsules By Mouth 2 times a day. PATIENT EDUCATION INFORMATION Instructions: [place], [place] [facility] DISCHARGE INSTRUCTIONS: TOTAL KNEE ARTHROPLASTY INCISION CARE: The bandage may be changed by your home Physical Therapist at 7 days postoperatively and worn an additional 7 days. A new Mepilex bandage should then be placed. The bandage is waterproof, so you may shower at home. Steri-strips (paper tape strips) may be applied to the incision if any slight wound separation is noted. These should remain in place for five days and then they may come off in the shower. Please notify the office if any increase in redness, tenderness, drainage, fever, or wound separation is noted beyond this point. MEDICATIONS: You may resume your home medications at the time of discharge. Arixtra and Lovenox are mild blood thinners that prevent the development of blood clots in the legs. One of these has been used during your hospitalization. After discharge home you should continue the use of two stomach coated baby Aspirin tablets daily with your largest meal for 30 days after home discharge. Please notify your doctor if you have a stomach sensitivity to Aspirin or history of previous stomach ulcers. Pain medication has been prescribed as well. You may continue to use the pain medication every four hours as needed. Any narcotic pain medication can cause side effects including stomach upset, constipation, or (more content not included)... [facility] Proceduralon 12-01-2024 Procedural Procedural Patient: DONNA ESTRELLA Age: 74 years Sex: Female : 1950 Associated Diagnoses: None Author: Marta Peres CRNA Procedure Nerve Block Block Type: Adductor canal block. Laterality: Left. Informed consent for anesthesia management: Anesthesia options discussed including nerve block, Description of the procedure, risks, benefits, and alternatives was provided, The patient's questions were addressed. Time out: Confirmed correct patient, procedure and site. Time: Date/Time 12/01/2024 07:03:00. Indication: Block for postoperative pain management as requested by surgeon. Anesthesia Method: IV Sedation with monitored anesthesia care, The patient remained awake and able to interact in a meaningful way throughout the procedure. Preparation: The patient was placed in the following position Supine, Continuous pulse oximetry applied, Guidance (Ultrasound used to identify anatomical landmarks, Permanent image retained, Using sterile gel, probe cleansed with antibacterial wipe.), The site was prepped with ChloraPrep. Procedure: Anesthetic Agent (Total volume: 20 ml, Ropivacaine 0.5% + 4mg decadron), Needle was inserted without pain or parasthesia in the conscious patient, Number of attempts 1, Negative attempt at aspiration for blood, Periodic negative attempts at aspiration of blood were made as the local was injected, No pain or parathesia were elicited with injection of the anesthetic in the conscious patient, It was idetified that the correct anesthetic agent was administered to the correct site. Complications: The patient tolerated the procedure as expected. [facility] Procedural Procedural Patient: DONNA ESTRELLA Age: 74 years Sex: Female : 1950 Associated Diagnoses: None Author: Paolo GONZALEZ, Adriana Rivers Preoperative Information Anesthesia Preop Info: Time patient last ate or drank 12/01/2024 00:00:00. Anesthesia history: Patient history: pain with spinal procedure 30 yrs ago. Family history+: None. Informed consent: Signed by patient. Re-evaluation prior to induction: Initial evaluation reviewed: No significant change. Review of Systems Eye Ear/Nose/Mouth/Throat Respiratory: No shortness of breath, No cough. Cardiovascular: Negative, No chest pain. Gastrointestinal: No heartburn. Musculoskeletal Neurologic Health Status Allergies: Allergic Reactions (Selected) Severity Not Documented Latanoprost ophthalmic- Itching. Nonallergic Reactions (Selected) Severity Not Documented Meloxicam- Bleeding., Allergies (2) Active Severity Reaction latanoprost ophthalmic Itching meloxicam Bleeding Current medications: (Selected) Inpatient Medications Ordered Sodium Chloride 0.9% IV Becca 1000 mL 1,000 mL: 1,000 mL, IV, 150 mL/hr, Routine, Start date 12/01/24 6:00:00 EDT, 6.7 hour(s), Total volume (mL): 1,000, 94.9 kg, 2.05, m2 cefazolin additive + Sodium Chloride 0.9% intravenous solution 50 mL: 2 gm = 1 EA, Powder-Inj, IV Piggyback, PREOP, Routine, Start date 12/01/24 6:00:00 EDT, 100 mL/hr, Infuse over 30 minute(s) tranexamic acid additive + premix generic diluent 100 mL: 1,000 mg = 100 mL, Soln-IV, IV Piggyback, PREOP, Routine, Start date 12/01/24 6:00:00 EDT, 200 mL/hr, Infuse over 30 minute(s) Documented Medications Documented Colace 100 mg Cap: 100 mg = 1 cap(s), Oral, BID, # 20 cap(s), Refills(s) 0, Constipation Lumigan 0.01% ophthalmic solution: OPTH, Daily, Refill(s) 0 Nature's Bounty Red Krill Oil 500 mg oral capsule: 1 cap, Oral, Daily, Refill(s) 0, Prophylaxis Tylenol 8 HR Arthritis Pain: 650 mg, Oral, BID, Refills(s) 0 Tylenol: 500 mg, Oral, BID, Refills(s) 0 Vitamin D3: 125 mcg Womens Pack oral tablet: 1 tab(s), Oral, Daily, Refill(s) 0, Prophylaxis cefdinir 300 mg Cap: 600 mg = 2 cap(s), Oral, BID, Refills(s) 0, Bladder problems dorzolamide-timolol Opth 2%-0.5% Becca: OPTH, Daily, Refill(s) 0 potassium chloride 99 mg oral tablet: 99 mg = 1 tab(s), Oral, Daily, # 100 tab(s), Refills(s) 0, Prophylaxis prednisoLONE Opth acetate 1% Susp 5 mL: 1 drop(s), INSTILL 1 DROP INTO BOTH EYES 4 TIMES A DAY tiZANidine 2 mg Tab: Refills(s) 0, Home Medications (12) Active cefdinir 300 mg Cap 600 mg = 2 cap(s), Oral, BID Colace 100 mg Cap 100 mg = 1 cap(s), Oral, BID dorzolamide-timolol Opth 2%-0.5% Becca , OPTH, Daily Lumigan 0.01% ophthalmic solution , OPTH, Daily Nature's Bounty Red Krill Oil 500 mg oral capsule 1 cap, Oral, Daily potassium chloride 99 mg oral tablet 99 mg = 1 tab(s), Oral, Daily prednisoLONE Opth acetate 1% Susp 5 mL 1 drop(s) tiZANidine 2 mg Tab Tylenol 500 mg, Oral, BID Tylenol 8 HR Arthritis Pain 650 mg, Oral, BID Vitamin D3 125 mcg Womens Pack oral tablet 1 tab(s), Oral, Daily , Medications (3) Active Scheduled: (2) ceFAZolin + Sodium Chloride 0.9% Minibag 50 mL 2 gm 1 EA, IV Piggyback, PREOP tranexamic acid + Generic Diluent 100 mL 1,000 mg 100 mL, IV Piggyback, PREOP Continuous: (1) Sodium Chloride 0.9% 1,000 mL 1,000 mL, IV, 150 mL/hr PRN: (0) Problem list: All Problems Anemia / SNOMED CT 288300556 / Confirmed Arthritis / SNOMED CT 3504693 / Confirmed Asymptomatic microscopic hematuria / SNOMED CT 4619734624 / Confirmed BMI 36.0-36.9,adult / SNOMED CT 494597363 / Confirmed Former smoker / SNOMED CT 76566171 / Confirmed Kidney stones / SNOMED CT 439003045 / Confirmed Mixed incontinence / SNOMED CT 44463201 / Confirmed Nocturia / SNOMED CT 610532495 / Confirmed Renal cysts, acquired, bilateral / SNOMED CT 910733702 / Confirmed Ureteral stone / SNOMED CT 45202468 / Confirmed Ureteral stone with hydronephrosis / SNOMED CT 9392509412 / Confirmed, Active Problems (11) Anemia Arthritis Asymptomatic microscopic hematuria BMI 36.0-36.9,adult Former smoker Kidney stones Mixed incontinence Nocturia Renal cysts, acquired, bilateral Ureteral stone Ureteral stone with hydronephrosis Histories Past Medical History: No active or resolved past medical history items have been selected or recorded. Family History: Congenital heart disease Father Primary malignant neoplasm of lung Mother Anemia Mother Primary malignant neoplasm of female breast Sister Procedure history: Cataract extraction and insertion of intraocular lens (1192124014) on 2020 at 70 Years. Cataract extraction and insertion of intraocular lens (1888228834) on 03/21/2020 at 69 Years. Cholecystectomy (29239063). Procedure on knee (987467439). Sclerotherapy of vein of lower limbs (3969323290). Comments: 11/18/2024 10:38 EDT - Keyonna Lamas RN 2022 Open r (more content not included)... [facility] XR KNEE 1 OR 2 VIEWS LEFTon 12-01-2024 Exam Date/Time: 12/01/2024 09:56 EDT Reason for Exam: Post-op evaluation;Other (please specify) Report IMPRESSION: UNREMARKABLE RECENT LEFT TOTAL KNEE ARTHROPLASTY PLACEMENT. EXAM: XR Knee 1 or 2 Views Left DATE: 12/01/2024 9:41 AM CLINICAL HISTORY: Post-op evaluation. COMPARISON: 10/05/2024. TECHNIQUE: Portable AP and cross table lateral radiographs of the left knee were obtained. FINDINGS: A left total knee arthroplasty has been placed in expected position. There is no evidence of hardware loosening, periprosthetic fracture, or other findings of concern identified. Soft tissue emphysema and anterior skin cass are noted from recent placement. Ordering Provider: Harley Arciniega FINAL REPORT Dictated: 12/01/2024 10:32 am Yung Alberts MD Signed (Electronic Signature): 12/01/2024 10:32 am Signed by: Yung Alberts MD Transcribed by: RONY Technologist: BRAULIO [facility] Radiology, Radiologist, MD - 12/01/2024 Exam Date/Time: 12/01/2024 09:56 EDT Reason for Exam: Post-op evaluation;Other (please specify) Report IMPRESSION: UNREMARKABLE RECENT LEFT TOTAL KNEE ARTHROPLASTY PLACEMENT. EXAM: XR Knee 1 or 2 Views Left DATE: 12/01/2024 9:41 AM CLINICAL HISTORY: Post-op evaluation. COMPARISON: 10/05/2024. TECHNIQUE: Portable AP and cross table lateral radiographs of the left knee were obtained. FINDINGS: A left total knee arthroplasty has been placed in expected position. There is no evidence of hardware loosening, periprosthetic fracture, or other findings of concern identified. Soft tissue emphysema and anterior skin cass are noted from recent placement. Ordering Provider: Harley Arciniega FINAL REPORT Dictated: 12/01/2024 10:32 am Yung Alberts MD Signed (Electronic Signature): 12/01/2024 10:32 am Signed by: Yung Alberts MD Transcribed by: RONY Technologist: [facility]RA[facility]IO [facility] Study observation (narrative) [facility] XR KNEE 1 OR 2 VIEWS LEFTOrd ered By: Radiologist Radiology on 12-01-2024 [facility] Work Phone: XR Knee 1 or 2 Views Lefton 12-01-2024 XR Knee 1 or 2 Views Left Exam Date/Time: 12/01/2024 09:56 EDT Reason for Exam: Post-op evaluation;Other (please specify) Report IMPRESSION: UNREMARKABLE RECENT LEFT TOTAL KNEE ARTHROPLASTY PLACEMENT. EXAM: XR Knee 1 or 2 Views Left DATE: 12/01/2024 9:41 AM CLINICAL HISTORY: Post-op evaluation. COMPARISON: 10/05/2024. TECHNIQUE: Portable AP and cross table lateral radiographs of the left knee were obtained. FINDINGS: A left total knee arthroplasty has been placed in expected position. There is no evidence of hardware loosening, periprosthetic fracture, or other findings of concern identified. Soft tissue emphysema and anterior skin cass are noted from recent placement. Ordering Provider: Harley Arciniega FINAL REPORT Dictated: 12/01/2024 10:32 am Yung Alberts MD Signed (Electronic Signature): 12/01/2024 10:32 am Signed by: Yung Alberts MD Transcribed by: RONY Technologist: BRAULIO [facility] C Urineon 11-20-2024 Bacteria identified Cx Nom (U) Microbiology PROCEDURE: Urine Culture [R1] SOURCE: U CleanCatch BODY SITE: COLLECTED DATE/TIME: 11/18/2024 11:05 EDT RECEIVED DATE/TIME: 11/18/2024 12:09 EDT START DATE/TIME: 11/18/2024 12:09 EDT FREE TEXT SOURCE: Harley Arciniega DO, DO, Jason A FINAL REPORTS Final Report [] Verified Date/Time: 11/20/2024 10:15 EDT 95,000 cfu/ml Escherichia coli SUSCEPTIBILITY RESULTS __ LEGEND: S=Susceptible, N/R=Not Reported, Blank=Data not available, or drug not advisable or tested, I=Intermediate, ESBL=Extended spectrum beta-lactamase, R=Resistant, TFG=Thymidine-dependen t strain, ESPERANZA=Beta-lactamase positive, MITCH=mcg/m;(mg/L), S*=Predicted susceptible interp, R*=Predicted resistant interp EC Antibiotic MITCH Dilutn MITCH Interp Ampicillin <=8 S Ampicillin/ <=8/4 S Sulbactam Aztreonam <=4 S Cefazolin <=2 S Cefepime <=2 S Ceftazidime <=1 S Ceftazidime/ <=8 S Avibactam Ceftriaxone <=1 S Cefuroxime <=4 S Ciprofloxacin <=0.25 S Ertapenem <=0.5 S Gentamicin <=2 S Levofloxacin <=0.5 S Meropenem <=1 S Nitrofurantoin <=32 S Piperacillin/ <=8 S Tazobactam Tetracycline <=4 S Tobramycin <=2 S Trimethoprim/ <=2/38 S Sulfa Performing Locations R1: This test was performed at: [facility], [address] [place] [address], [phone] , [place], [facility] Comment on above: Performed By: #### 2 [id number] #### [facility] [address] [place] [address] [place] [address] ABO/Rh Retypeon 11-18-2024 ABO/Rh Retype Interp Positive Invalid Interpretation Code [facility] Comment on above: Performed By: #### 1 [id number] #### [facility] [address] [place] [address] BLOOD BANKOrdered By: Claudia Palomo on 11-18-2024 ABO/Rh Retype Interp Positive Invalid Interpretation Code [facility] BB Subsection BMPon 11-18-2024 Anion gap [Moles/Vol] 8 mmol/L Normal 6-16 [facility] Comment on above: Performed By: #### 2 [id number] #### [facility] [address] [place] [address] Calcium [Mass/Vol] 9.5 mg/dL Normal 8.9-11.1 [facility] Comment on above: Performed By: #### 2 [id number] #### [facility] [address] [place] [address] Chloride [Moles/Vol] 107 mmol/L Normal 101-111 [facility] Comment on above: Performed By: #### 2 [id number] #### [facility] [address] [place] [address] CO2 [Moles/Vol] 29 mmol/L Normal 21-31 [facility] Comment on above: Performed By: #### 2 [id number] #### [facility] [address] [place] [address] Creatinine [Mass/Vol] 0.5 mg/dL Normal 0.5-1.3 [facility] Comment on above: Performed By: #### 2 [id number] #### [facility] [address] [place] [address] Glucose [Mass/Vol] 101 mg/dL Normal 55-199 [facility] Comment on above: Performed By: #### 2 [id number] #### [facility] [address] [place] [address] Potassium [Moles/Vol] 4.3 mmol/L Normal 3.5-5.3 [facility] Comment on above: Performed By: #### 2 [id number] #### [facility] [address] [place] [address] Sodium [Moles/Vol] 140 mmol/L Normal 135-145 [facility] Comment on above: Performed By: #### 2 [id number] #### [facility] [address] [place] [address] Urea nitrogen [Mass/Vol] 26 mg/dL High 5-21 [facility] Comment on above: Performed By: #### 2 [id number] #### [facility] [address] [place] [address] Urea nitrogen/Creatinine [Mass ratio] 52 No Units High 10-20 [facility] Comment on above: Performed By: #### 2 [id number] #### [facility] [address] [place] [address] CBC w/ Auto Diffon 5 Anisocytosis Ql (Bld) PRESENT Invalid Interpretation Code [facility] Comment on above: Performed By: #### 2 [id number] #### [facility] [address] [place] [address] Basophils/100 WBC (Bld) 0.7 % Normal 0.0-2.0 [facility] Comment on above: Performed By: #### 2 115754 #### [facility] [address] [place] [address] Basophils/Leukocytes Auto (Bld) [Pure # fraction] 0.0 E9/L Normal 0.0-0.2 [facility] Comment on above: Performed By: #### 2 [id number] #### [facility] [address] [place] [address] Eosinophils (Bld) [#/Vol] 0.2 E9/L Normal 0.0-0.5 [facility] Comment on above: Performed By: #### 2 [id number] #### [facility] [address] [place] [address] Eosinophils/100 WBC (Bld) 3.8 % Normal 0.0-8.0 [facility] Comment on above: Performed By: #### 2 [id number] #### [facility] [address] [place] [address] Erythrocyte distribution width (RBC) [Ratio] 16.0 % High 10.9-14.2 [facility] Comment on above: Performed By: #### 2 [id number] #### [facility] [address] [place] [address] Hematocrit (Bld) [Volume fraction] 37.5 % Normal 34.0-46.0 [facility] Comment on above: Performed By: #### 2 [id number] #### [facility] [address] [place] [address] Hemoglobin (Bld) [Mass/Vol] 11.7 g/dL Low 12.0-16.0 [facility] Comment on above: Performed By: #### 2 [id number] #### [facility] [address] [place] [address] Hypochromia Auto Ql (Bld) PRESENT Invalid Interpretation Code [facility] Comment on above: Performed By: #### 2 [id number] #### [facility] [address] [place] [address] Lymphocytes (Bld) [#/Vol] 1.5 E9/L Normal 1.0-4.0 [facility] Comment on above: Performed By: #### 2 [id number] #### [facility] [address] [place] [address] Lymphocytes/100 WBC (Bld) 30.0 % Normal 14.0-50.0 [facility] Comment on above: Performed By: #### 2 [id number] #### [facility] [address] [place] [address] MCH (RBC) [Entitic mass] 20.5 pg Low 27.0-34.0 [facility] Comment on above: Performed By: #### 2 [id number] #### [facility] [address] [place] [address] MCHC (RBC) [Mass/Vol] 31.3 g/dL Low 31.4-36.0 [facility] Comment on above: Performed By: #### 2 256297 #### [facility] [address] [place] [address] MCV (RBC) [Entitic vol] 65.4 fL Low 80.0-100.0 [facility] Comment on above: Performed By: #### 2 [id number] #### [facility] [address] [place] [address] Monocytes (Bld) [#/Vol] 0.5 E9/L Normal 0.2-1.0 [facility] Comment on above: Performed By: #### 2 [id number] #### [facility] [address] [place] [address] Neutrophils (Bld) [#/Vol] 2.9 E9/L Normal 2.0-7.5 [facility] Comment on above: Performed By: #### 2 334558 #### [facility] [address] [place] [address] Neutrophils/100 WBC (Bld) 56.3 % Normal 36.0-75.0 [facility] Comment on above: Performed By: #### 2 [id number] #### [facility] [address] [place] [address] Ovalocytes LM Ql (Bld) PRESENT Invalid Interpretation Code [facility] Comment on above: Performed By: #### 2 [id number] #### [facility] [address] [place] [address] Platelet 200.0 E9/L Normal 150.0-500.0 [facility] Comment on above: Performed By: #### 2 [id number] #### [facility] [address] [place] [address] Platelet mean volume (Bld) [Entitic vol] 9.1 fL Normal 6.4-10.8 [facility] Comment on above: Performed By: #### 2 973005 #### [facility] [address] [place] [address] RBC (Bld) [#/Vol] 5.7 E12/L Normal 4.3-5.9 [facility] Comment on above: Performed By: #### 2 [id number] #### [facility] [address] [place] [address] RBC size Nom (Bld) SEE MORPHOLOGY Invalid Interpretation Code [facility] Comment on above: Performed By: #### 2 [id number] #### [facility] [address] [place] [address] WBC corrected for nucl RBC Auto (Bld) [#/Vol] 5.1 E9/L Normal 4.0-11.0 [facility] Comment on above: Performed By: #### 2 [id number] #### [facility] [address] [place] [address] CHEMISTRYOrdered By: SYSTEM SYSTEM on 11-18-2024 Anion gap [Moles/Vol] 8 mmol/L Normal 6 - 16 mEq/L R emisol Chem Calcium [Mass/Vol] 9.5 mg/dL Normal 8.9 - 11. 1 mg/dL [facility] Chloride [Moles/Vol] 107 mmol/L Normal 101 - 1 11 mmol/L [facility] CO2 [Moles/Vol] 29 mmol/L Normal 21 - 31 mmol/L [facility] Creatinine [Mass/Vol] 0.5 mg/dL Normal 0.5 - 1.3 mg/dL [facility] eGFR 97 mL/min/1.73 m2 Normal >=59mL/min /1 .73 m2 [facility] Glucose [Mass/Vol] 101 mg/dL Normal 55 - 199 mg/dL [facility] Potassium [Moles/Vol] 4.3 mmol/L Normal 3.5 - 5.3 mmol/L [facility] Sodium [Moles/Vol] 140 mmol/L Normal 135 - 145 mmol/L [facility] Urea nitrogen [Mass/Vol] 26 mg/dL High 5 - 21 mg/dL [facility] Urea nitrogen/Creatinine [Mass ratio] 52 mg/mg High 10 - [address] LOWER EXTREMITY W/O CONTR AST LEFTon 11-18-2024 Exam Date/Time: 11/18/2024 11:23 EDT Reason for Exam: LEFT KNEE OA Report Impression: No acute intracranial process. CT left lower extremity without intravenous contrast medium. History: Left knee OA. Technical factors: CT imaging of the left lower extremity was obtained and formatted as 2 mm contiguous axial images through the left hip, and 1 mm contiguous axial images through the left knee. Sagittal and coronal reconstruction of the left knee were obtained during postprocessing. Comparison: None. Findings: Imaging of the left hip shows no fracture, dislocation, or bone lesion. Joint space left hip maintained. Itching of the left knee shows narrowing of the medial compartment with osteophyte formation identified along the medial lateral extent the medial femoral condyle and lateral femoral condyle. Narrowing of left patellofemoral space also identified with osteophyte formation anterior femoral condyle and superior and inferior aspects posterior patella. No fracture, dislocation, bone lesion, effusion left knee. All CT scans at this facility use dose modulation, iterative reconstruction, and/or weight based dosing when appropriate to reduce radiation dose to as low as reasonably achievable. Technical Comments: Report Ordering Provider: Harley Arciniega FINAL REPORT Dictated: 11/18/2024 1:03 pm Alden Acuña MD Signed (Electronic Signature): 11/18/2024 1:03 pm Signed by: Alden Acuña MD Transcribed by: RONY Technologist: JUAN [facility] Radiology, Radiologist, - 11/18/2024 Exam Date/Time: 11/18/2024 11:23 EDT Reason for Exam: LEFT KNEE OA Report Impression: No acute intracranial process. CT left lower extremity without intravenous contrast medium. History: Left knee OA. Technical factors: CT imaging of the left lower extremity was obtained and formatted as 2 mm contiguous axial images through the left hip, and 1 mm contiguous axial images through the left knee. Sagittal and coronal reconstruction of the left knee were obtained during postprocessing. Comparison: None. Findings: Imaging of the left hip shows no fracture, dislocation, or bone lesion. Joint space left hip maintained. Itching of the left knee shows narrowing of the medial compartment with osteophyte formation identified along the medial lateral extent the medial femoral condyle and lateral femoral condyle. Narrowing of left patellofemoral space also identified with osteophyte formation anterior femoral condyle and superior and inferior aspects posterior patella. No fracture, dislocation, bone lesion, effusion left knee. All CT scans at this facility use dose modulation, iterative reconstruction, and/or weight based dosing when appropriate to reduce radiation dose to as low as reasonably achievable. Technical Comments: Report Ordering Provider: Harley Arciniega FINAL REPORT Dictated: 11/18/2024 1:03 pm Alden Acuña MD Signed (Electronic Signature): 11/18/2024 1:03 pm Signed by: Alden Acuña MD Transcribed by: RONY Technologist: [facility] [place] Radiology Study observation (narrative) [facility] CT LOWER EXTREMITY W/O CONTR AST LEFTOrdered By: Radiologist Radiology on 11-18-2024 [facility] [place] Work Phone: CT Lower Extremity w/o Contr ast Lefton 11-18-2024 CT Lower Extremity w/o Contrast Left Exam Date/Time: 11/18/2024 11:23 EDT Reason for Exam: LEFT KNEE OA Report Impression: No acute intracranial process. CT left lower extremity without intravenous contrast medium. History: Left knee OA. Technical factors: CT imaging of the left lower extremity was obtained and formatted as 2 mm contiguous axial images through the left hip, and 1 mm contiguous axial images through the left knee. Sagittal and coronal reconstruction of the left knee were obtained during postprocessing. Comparison: None. Findings: Imaging of the left hip shows no fracture, dislocation, or bone lesion. Joint space left hip maintained. Itching of the left knee shows narrowing of the medial compartment with osteophyte formation identified along the medial lateral extent the medial femoral condyle and lateral femoral condyle. Narrowing of left patellofemoral space also identified with osteophyte formation anterior femoral condyle and superior and inferior aspects posterior patella. No fracture, dislocation, bone lesion, effusion left knee. All CT scans at this facility use dose modulation, iterative reconstruction, and/or weight based dosing when appropriate to reduce radiation dose to as low as reasonably achievable. Technical Comments: Report Ordering Provider: Harley Arciniega FINAL REPORT Dictated: 11/18/2024 1:03 pm Alden Acuña MD Signed (Electronic Signature): 11/18/2024 1:03 pm Signed by: Alden Acuña MD Transcribed by: RONY Technologist: JUAN Normal [facility] HEMATOLOGYOrdered By: SYSTEM SYSTEM on 11-18-2024 Anisocytosis Ql (Bld) PRESENT *NA* (11/18/24 11:05 AM) Invalid Interpretation Code Remisol Heme Basophils/100 WBC (Bld) 0.7 % Normal 0.0 - 2.0 % Remisol Heme Basophils/Leukocytes Auto (Bld) [Pure # fraction] 0.0 E9/L Normal 0.0 - 0.2 E9/L Remisol Heme Eosinophils (Bld) [#/Vol] 0.2 E9/L Normal 0.0 - 0.5 E9/L Remisol Heme Eosinophils/100 WBC (Bld) 3.8 % Normal 0.0 - 8.0 % Remisol Heme Erythrocyte distribution width (RBC) [Ratio] 16.0 % High 10.9 - 14.2 % Remisol Heme Hematocrit (Bld) [Volume fraction] 37.5 % Normal 34.0 - 46.0 % Remisol Heme Hemoglobin (Bld) [Mass/Vol] 11.7 g/dL Low 12.0 - 16.0 gm/dL Remisol Heme Hypochromia Auto Ql (Bld) PRESENT *NA* (11/18/24 11:05 AM) Invalid Interpretation Code Remisol Heme Lymphocytes (Bld) [#/Vol] 1.5 E9/L Normal 1.0 - 4.0 E9/L Remisol Heme Lymphocytes/100 WBC (Bld) 30.0 % Normal 14.0 - 50.0 % Remisol Heme MCH (RBC) [Entitic mass] 20.5 pg Low 27.0 - 34.0 pg Remisol Heme MCHC (RBC) [Mass/Vol] 31.3 g/dL Low 31.4 - 36.0 gm/dL Remisol Heme MCV (RBC) [Entitic vol] 65.4 fL Low 80.0 - 100.0 fL Remisol Heme Monocytes (Bld) [#/Vol] 0.5 E9/L Normal 0.2 - 1.0 E9/L Remisol Heme Monocytes/100 WBC (Bld) 9.2 % Normal 4.0 - 14.0 % Remisol Heme Neutrophils (Bld) [#/Vol] 2.9 E9/L Normal 2.0 - 7.5 E9/L Remisol Heme Neutrophils/100 WBC (Bld) 56.3 % Normal 36.0 - 75.0 % Remisol Heme Ovalocytes LM Ql (Bld) PRESENT *NA* (11/18/24 11:05 AM) Invalid Interpretation Code Remisol Heme Platelet 200.0 E9/L Normal 150.0 - 500.0 E9/L Remisol Heme Platelet mean volume (Bld) [Entitic vol] 9.1 fL Normal 6.4 - 10.8 fL Remisol Heme RBC (Bld) [#/Vol] 5.7 E12/L Normal 4.3 - 5.9 E12/L Remisol Heme RBC size Nom (Bld) SEE MORPHOLOGY *NA* (11/18/24 11:05 AM) Invalid Interpretation Code Remisol Heme WBC corrected for nucl RBC Auto (Bld) [#/Vol] 5.1 E9/L Normal 4.0 - 11.0 E9/L [facility] Heme UA WITH CULT RFLXon 11-19-19 BACTERIA:PRTHR:PT:URI NE:ORD:AUTOMATED 1+ Abnormal Trace /HPF [facility] BILIRUBIN:PRTHR:PT:UR INE:ORD:TEST STRIP.AUTOMATED Negative Negative mg/dL [facility] EPITHELIAL CELLS.SQUAMOUS:NARIC: PT:URINE SED:QN:AUTOMATED COUNT 3-4 CD:[id number] 3 [facility] CLARITY:TYPE:PT:URINE :NOM: Clear Clear [facility] CLASS:TYPE:PT:URINE COLLECTION METHOD:NOM:* Clean Catch [facility] COLOR:TYPE:PT:URINE:N OM:AUTO Yellow Yellow [facility] Comment on above: Microscopic readings are only performed on those samples that meet specific criteria set forth by [facility]. [facility] PH:LSCNC:PT:URINE:QN: TEST STRIP 6.5 5.0 - 9.0 [facility] SPECIFIC GRAVITY:RDEN:PT:URINE :QN:TEST STRIP 1.023 1.005 - 1.030 [facility] GLUCOSE:PRTHR:PT:URIN E:ORD:TEST STRIP Negative Negative mg/dL [facility] HEMOGLOBIN:MCNC:PT:UR INE:SEMIQN:TEST STRIP.AUTOMATED Negative Negative mg/dL [facility] Interpretation and review of laboratory results Abnormal [facility] KETONES:PRTHR:PT:URIN E:ORD:TEST STRIP.AUTOMATED Negative Negative mg/dL [facility] LEUKOCYTE ESTERASE:PRTHR:PT:URI NE:ORD:TEST STRIP.AUTOMATED 250 Kamaljit/uL Abnormal Negative CD:[id number] [facility] LEUKOCYTES:NARIC:PT:U RINE SED:QN:AUTOMATED COUNT 6-15 Abnormal [facility] MUCUS:PRTHR:PT:URINE: ORD:AUTOMATED Trace Negative CD:[id number] [facility] NITRITE:PRTHR:PT:URIN E:ORD:TEST STRIP.AUTOMATED Negative Negative mg/dL [facility] PROTEIN:PRTHR:PT:URIN E:ORD:TEST STRIP Negative Negative mg/dL [facility] UROBILINOGEN:MCNC:PT: URINE:SEMIQN:TEST STRIP Negative Negative mg/dL [facility] Original Ordering Provider: DO [facility] with Cult [employer]flxon 11-19-19 25 Bacteria Auto Ql (U) 1+ /HPF Abnormal Trace Fish er [facility] Comment on above: Performed By: #### 4 [id number] #### [facility] [address] [place] [address] Bilirubin Ql (U) Negative Normal Negative [facility] Comment on above: Performed By: #### 4 [id number] #### [facility] [address] [place] [address] Clarity (U) Clear Normal Clear [facility] Comment on above: Performed By: #### 4 [id number] #### [facility] [address] [place] [address] Color (U) Yellow Normal Yellow [facility] Comment on above: Result Comment: Micr oscopic readings are only performed on those samples that meet specific criteria set forth by [facility]. Performed By: #### 4 [id number] #### [facility] [address] [place] [address] Epithelial cells.squamous Auto (Urine sed) [#/Area] 3-4 Invalid Interpretation Code [facility] Comment on above: Performed By: #### 4 [id number] #### [facility] [address] [place] [address] Glucose Ql (U) Negative Normal Negative [facility] Comment on above: Performed By: #### 4 [id number] #### [facility] [address] [place] [address] Hemoglobin Auto test strip (U) [Mass/Vol] Negative Normal Negative [facility] Comment on above: Performed By: #### 4 [id number] #### [facility] [address] [place] [address] Ketones Auto test strip Ql (U) Negative Normal Negative [facility] Comment on above: Performed By: #### 4 [id number] #### [facility] [address] [place] [address] Leukocyte esterase Auto test strip Ql (U) 250 Kamaljit/uL Abnormal Negative [facility] Comment on above: Performed By: #### 4 [id number] #### [facility] [address] [place] [address] Mucus Auto Ql (U) Trace Normal Negative [facility] Comment on above: Performed By: #### 4 [id number] #### [facility] [address] [place] [address] Nitrite Auto test strip Ql (U) Negative Normal Negative [facility] Comment on above: Performed By: #### 4 [id number] #### [facility] [address] [place] [address] pH (U) 6.5 [pH] Invalid Interpretation Code 5.0-9.0 [facility] Comment on above: Performed By: #### 4 [id number] #### [facility] [address] [place] [address] Protein Ql (U) Negative Normal Negative [facility] Comment on above: Performed By: #### 4 [id number] #### [facility] [address] [place] [address] Specific gravity (U) [Rel density] 1.023 Invalid Interpretation Code 1.005-1.030 [facility] Comment on above: Performed By: #### 4 [id number] #### [facility] [address] [place], [place] [address] Urobilinogen (U) [Mass/Vol] Negative Normal Negative [facility] Comment on above: Performed By: #### 4 [id number] #### [facility] [address] [place] [address] WBC Auto (Urine sed) [#/Area] 6-15 Abnormal 0-5 [facility] Comment on above: Performed By: #### 4 [id number] #### [facility] [address] [place] [address] Type of Urine collection method Clean Catch Normal [facility] Comment on above: Performed By: #### 4 [id number] #### [facility] [address] [place] [address] URINALYSISOrdered By: SYSTEM SYSTEM on 11-18-2024 Bacteria Auto Ql (U) 1+ /HPF Invalid Interpretation Code Trace/HPF [facility] UA Auto SS Bilirubin Ql (U) Negative Normal Negativemg/ d L [facility] UA Auto SS Clarity (U) Clear (11/18/24 11:05 AM) Normal Clear [facility] UA Auto SS Color (U) Yellow 1 (11/18/24 11:05 AM) Normal Yellow [facility] UA Auto SS Comment on above: Interpretive Data: M icroscopic readings are only performed on those samples that meet specific criteria set forth by [facility]. Epithelial cells.squamous Auto (Urine sed) [#/Area] 3-4 graded/HPF Invalid Interpretation Code [facility] UA Auto SS Glucose Ql (U) Negative Normal Negativemg/d L [facility] UA Auto SS Hemoglobin Auto test strip (U) [Mass/Vol] Negative Normal Negativemg/d L [facility] UA Auto SS Ketones Auto test strip Ql (U) Negative Normal Negativemg/d L [facility] UA Auto SS Leukocyte esterase Auto test strip Ql (U) 250 Kamaljit/uL Kamaljit/uL Invalid Interpretation Code NegativeLeu/ uL [facility] UA Auto SS Mucus Auto Ql (U) Trace graded/LPF Normal Negati vegrad ed/LPF [facility] UA Auto SS Nitrite Auto test strip Ql (U) Negative Normal Negativemg/d L [facility] UA Auto SS pH (U) 6.5 *NA* (11/18/24 11:05 AM) Invalid Interpretation Code 5.0 - 9.0 [facility] UA Auto SS Protein Ql (U) Negative Normal Negativemg/d L [facility] UA Auto SS Specific gravity (U) [Rel density] 1.023 *NA* (11/18/24 11:05 AM) Invalid Interpretation Code 1.005 - 1.030 [facility] UA Auto SS Urobilinogen (U) [Mass/Vol] Negative Normal Negativemg/d L [facility] UA Auto SS WBC Auto (Urine sed) [#/Area] 6-15 graded/HPF Invalid Interpretation Code 0-5graded/HP F [facility] UA Auto SS URINALYSISOrdered By: Vega Lamas on 11-18-2024 UA Spec Desc Clean Catch (11/18/24 11:05 AM) Normal [facility] UA Auto SS eGFRon 11-18-2024 eGFR 97 mL/min/1.73 m2 Normal >=59 [facility] Comment on above: Performed By: #### 1 [id number] #### [facility] [address] [place] [address] No Panel Informationon 06-15 Adriana Flores, DO 06/17/2024 8:42 AM L Inj/Asp: R knee on 06/15/2024 12:14 PM Indications: pain Details: 21 G needle, anterolateral approach Medications: 2 mL SynoJoynt 20 MG/2ML Outcome: tolerated well, no immediate complications Procedure, treatment alternatives, risks and benefits explained, specific risks discussed. Consent was given by the patient. [facility] No Panel Informationon 06-08 Adriana Flores, DO 06/08/2024 1:12 PM L Inj/Asp: R knee on 06/08/2024 10:49 AM Indications: pain Details: 21 G needle, anterolateral approach Medications: 2 mL SynoJoynt 20 MG/2ML Outcome: tolerated well, no immediate complications Procedure, treatment alternatives, risks and benefits explained, specific risks discussed. Consent was given by the patient. [facility] hospital No Panel Informationon 06-01 Adriana Flores, DO 06/01/2024 12:36 PM L Inj/Asp: R knee on 06/01/2024 9:48 AM Indications: pain Details: 21 G needle, anterolateral approach Medications: 2 mL SynoJoynt 20 MG/2ML Outcome: tolerated well, no immediate complications Procedure, treatment alternatives, risks and benefits explained, specific risks discussed. Consent was given by the patient. [facility] Urineon 05-14-2024 Bacteria identified Cx Nom (U) Microbiology PROCEDURE: Urine Culture [R1] SOURCE: U CleanCatch BODY SITE: COLLECTED DATE/TIME: 05/12/2024 10:44 EDT RECEIVED DATE/TIME: 05/12/2024 18:59 EDT START DATE/TIME: 05/12/2024 18:59 EDT FREE TEXT SOURCE: Lorne GONZALEZ, Ramila Pradhan MD, Ramila Pascal FINAL REPORTS Final Report [] Verified Date/Time: 05/14/2024 10:30 EDT 75,000 cfu/ml Escherichia coli SUSCEPTIBILITY RESULTS __ LEGEND: S=Susceptible, N/R=Not Reported, Blank=Data not available, or drug not advisable or tested, I=Intermediate, ESBL=Extended spectrum beta-lactamase, R=Resistant, TFG=Thymidine-dependen t strain, ESPERANZA=Beta-lactamase positive, MITCH=mcg/m;(mg/L), S*=Predicted susceptible interp, R*=Predicted resistant interp EC Antibiotic MITCH Dilutn MITCH Interp Ampicillin <=8 S Ampicillin/ <=8/4 S Sulbactam Aztreonam <=4 S Cefazolin <=2 S Cefepime <=2 S Ceftazidime <=1 S Ceftazidime/ <=8 S Avibactam Ceftriaxone <=1 S Cefuroxime <=4 S Ciprofloxacin <=0.25 S Ertapenem <=0.5 S Gentamicin <=2 S Levofloxacin <=0.5 S Meropenem <=1 S Nitrofurantoin <=32 S Piperacillin/ <=8 S Tazobactam Tetracycline <=4 S Tobramycin <=2 S Trimethoprim/ <=2/38 S Sulfa Performing Locations R1: This test was performed at: [facility], [address] [place] [address], [phone] , [place], Normal [facility] Comment on above: Performed By: #### 2 [id number] #### [facility] [address] [place] [address] Ambulatory Visit Summaryon 1 Ambulatory Visit Summary Ambulatory Visit Summary DONNA ESTRELLA Amy :1950 Visit Date:05/12/2024 Ambulatory Visit Instructions Your Diagnosis Mixed incontinence Nocturia Kidney stones Asymptomatic microscopic hematuria Renal cysts, acquired, bilateral Tests Performed US Renal -- Results Pending -- XR Abdomen 1 View -- Results Pending -- Please visit your patient portal for your results or contact your primary care physician. Your Care Team Attending Physician - Lorne GONZALEZ, Ramila Pascal Primary Care Physician - ALDEN WHEELER DO This Is Your Medications List Contact prescribing physician if questions or concerns apixaban (Eliquis 5 mg oral tablet) cholecalciferol (Vitamin D3) docusate (Colace 100 mg Cap) multivitamin with minerals (Womens Pack oral tablet) omega-3 polyunsaturated fatty acids (Nature's Bounty Red Krill Oil 500 mg oral capsule) potassium chloride (potassium chloride 99 mg oral tablet) prednisoLONE ophthalmic (prednisoLONE Opth acetate 1% Susp 5 mL) tizanidine (tiZANidine 2 mg Tab) Procedures Performed Cataract extraction and insertion of intraocular lens (2020), Cataract extraction and insertion of intraocular lens (03/21/2020), Cholecystectomy, Procedure on knee. Discharge Vitals Heart Rate (Peripheral) 66 Blood Pressure 134/74 Height 162 cm Height 64 in Weight 97 kg Weight 213.4 lb BMI 36.96 What to do next You Need to Schedule the Following Appointments Follow Up with Lorne GONZALEZ, Ramila Pascal URL, URO When: Where: [address], [place] [address] [phone] Medications What How Much When Instructions Unchanged apixaban (Eliquis 5 mg oral tablet) 1 Tablets TAKE 2 TABLETS BY MOUTH TWICE DAILY FOR 7 DAYS, THEN DECREASE TO 1 TABLET TWICE DAILY FOR NEXT 3 MOS Contact prescribing physician if questions or concerns [...] or concerns Unchanged omega-3 polyunsaturated fatty acids ([employer]'s Bounty Red Krill Oil 500 mg oral capsule) 1 cap By Mouth Every day Contact prescribing physician if questions or concerns Unchanged potassium chloride (potassium chloride 99 mg oral tablet) 1 Tablets By Mouth Every day Contact prescribing physician if questions or concerns Unchanged prednisoLONE ophthalmic (prednisoLONE Opth acetate 1% Susp 5 mL) INSTILL 1 DROP INTO BOTH EYES 4 TIMES A DAY Contact prescribing physician if questions or concerns Unchanged tizanidine (tiZANidine 2 mg Tab) Contact prescribing physician if questions or concerns Allergies Latex (Rash) Problems Ongoing - Any problem that you are currently receiving treatment for. Anemia Arthritis Asymptomatic microscopic hematuria BMI 36.0-36.9,adult Former smoker Kidney stones Mixed incontinence Nocturia Renal cysts, acquired, bilateral Ureteral stone Ureteral stone with hydronephrosis Patient Survey You may receive a survey via text or e-mail asking about your office visit. Please share your experience with us by completing your survey. We appreciate your feedback and thank you for choosing us for your care. Education Materials Cystoscopy Cystoscopy is a procedure that is used to help diagnose and sometimes treat conditions that affect the lower urinary tract. The lower urinary tract includes the bladder and the urethra. The urethra is the tube that drains urine from the bladder. Cystoscopy is done using a thin, tube-shaped instrument with a light and camera at the end (cystoscope). The cystoscope may be hard or flexible, depending on the goal of the procedure. The cystoscope is inserted through the urethra, into the bladder. Cystoscopy may be recommended if you have: ? Urinary tract infections that keep coming back. ? Blood in the urine (hematuria). ? An inability to control when you urinate (urinary incontinence) or an overactive bladder. ? Unusual cells found in a urine sample. ? A blockage in the urethra, such as a urinary stone. ? Painful urination. ? An abnormality in the bladder found during an intravenous pyelogram (IVP) or CT scan. Cystoscopy may also be done to remove a sample of tissue to be examined under a microscope (biopsy). Tell a health care provider about: ? Any allergies you have. ? All medicines you are taking, including vitamins, herbs, eye drops, creams, and [id number] medicines. ? Any problems you or family members have had with anesthetic medicines. ? Any blood disorders you have. ? Any surgeries you have had. ? Any medical conditions you have. ? Whether you are or may be . What are the risks? Generally, (more content not included)... Normal [facility] URINALYSISOrdered By: SYSTEM SYSTEM on 05-12-2024 Bacteria Auto Ql (U) 4+ /HPF Invalid Interpretation Code Trace/HPF [facility] UA Auto SS Bilirubin Ql (U) Negative Normal Negativemg/ d L [facility] UA Auto SS Clarity (U) Ex.Turbid *ABN* (05/12/24 10:44 AM) Invalid Interpretation Code Clear [facility] UA Auto SS Color (U) Light-Martin 1 *ABN* (05/12/24 10:44 AM) Invalid Interpretation Code Yellow [facility] UA Auto SS Comment on above: Interpretive Data: M icroscopic readings are only performed on those samples that meet specific criteria set forth by [facility]. Crystals.amorphous Computer assisted Ql (U) Present graded/HPF Invalid Interpretation Code [facility] UA Auto SS Glucose Ql (U) Negative Normal Negativemg/d L [facility] UA Auto SS Hemoglobin Auto test strip (U) [Mass/Vol] 1+ mg/dL Invalid Interpretation Code Negativemg/d L [facility] UA Auto SS Ketones Auto test strip Ql (U) Negative Normal Negativemg/d L [facility] UA Auto SS Leukocyte esterase Auto test strip Ql (U) 75 Kamaljit/uL Kamaljit/uL Invalid Interpretation Code NegativeLeu/ uL [facility] UA Auto SS Mucus Auto Ql (U) 3+ graded/LPF Invalid Interpretation Code Negativegrad ed/LPF [facility] UA Auto SS Nitrite Auto test strip Ql (U) Negative Normal Negativemg/d L [facility] UA Auto SS pH (U) 5.5 *NA* (05/12/24 10:44 AM) Invalid Interpretation Code 5.0 - 9.0 [facility] UA Auto SS Protein Ql (U) Negative Normal Negativemg/d L [facility] UA Auto SS Specific gravity (U) [Rel density] 1.023 *NA* (05/12/24 10:44 AM) Invalid Interpretation Code 1.005 - 1.030 [facility] UA Auto SS Urobilinogen (U) [Mass/Vol] Negative Normal Negativemg/d L [facility] UA Auto SS URINALYSISOrdered By: Dilia Henriquez on 05-12-2024 UA Spec Desc Clean Catch (05/12/24 10:44 AM) Normal [facility] UA Auto SS Urinalysis with Microon 04-27 Bacteria Auto Ql (U) 4+ /HPF Abnormal Trace Fish [facility] Comment on above: Performed By: #### 4 [id number] #### [facility] [address] [place] [address] Bilirubin Ql (U) Negative Normal Negative [facility] Comment on above: Performed By: #### 4 [id number] #### [facility] [address] [place] [address] Clarity (U) Ex.Turbid Abnormal Clear [facility] Comment on above: Performed By: #### 4 [id number] #### [facility] [address] [place] [address] Color (U) Light-Martin Abnormal Yellow [facility] Comment on above: Result Comment: Micr oscopic readings are only performed on those samples that meet specific criteria set forth by [facility]. Performed By: #### 4 [id number] #### [facility] [address] [place] [id number] Crystals.amorphous Computer assisted Ql (U) Present Abnormal [facility] Comment on above: Performed By: #### 4 [id number] #### [facility] [address] [place] [address] Glucose Ql (U) Negative Normal Negative [facility] Comment on above: Performed By: #### 4 [id number] #### [facility] [address] [place] [address] Hemoglobin Auto test strip (U) [Mass/Vol] 1+ mg/dL Abnormal Negative [facility] Comment on above: Performed By: #### 4 [id number] #### [facility] [address] [place] [address] Ketones Auto test strip Ql (U) Negative Normal Negative [facility] Comment on above: Performed By: #### 4 [id number] #### [facility] [address] [place] [address] Leukocyte esterase Auto test strip Ql (U) 75 Kamaljit/uL Abnormal Negative [facility] Comment on above: Performed By: #### 4 [id number] #### [facility] [address] [place] [address] Mucus Auto Ql (U) 3+ [id number] Abnormal Negative F [facility] Comment on above: Performed By: #### 4 [id number] #### [facility] [address] [place] [address] Nitrite Auto test strip Ql (U) Negative Normal Negative [facility] Comment on above: Performed By: #### 4 [id number] #### [facility] [address] [place] [address] pH (U) 5.5 [pH] Invalid Interpretation Code 5.0-9.0 [facility] Comment on above: Performed By: #### 4 [id number] #### [facility] [address] [place] [address] Protein Ql (U) Negative Normal Negative [facility] Comment on above: Performed By: #### 4 [id number] #### [facility] [address] [place] [address] Specific gravity (U) [Rel density] 1.023 Invalid Interpretation Code 1.005-1.030 [facility] Comment on above: Performed By: #### 4 [id number] #### [facility] [address] [place] [address] Urobilinogen (U) [Mass/Vol] Negative Normal Negative [facility] Comment on above: Performed By: #### 4 [id number] #### [facility] [address] [place] [address] Type of Urine collection method Clean Catch Normal [facility] Comment on above: Performed By: #### 4 [id number] #### [facility] [address] [place] [id number] Urology Office/Clinic Noteon 05-12-2024 Urology Office/Clinic Note Urology Office/Clinic Note Chief Complaint 1 yr f/u w/ KUB and JAK HPI Staff 74 year old female patient presents today for a year follow up with KUB/JAK. Both done 05/07/24. Previous Dx: mixed incontinence, nocturia, asymptomatic microscopic hematuria, ureteral stone with hydronephrosis. pt states the only issue she has is if she has to urinate, and has to wait or walk too far,she has trouble holding it. pt has good and bad days. Dysuria: no Incomplete bladder emptying: no Hematuria: no Frequency: q2-4hrs Urgency: only when holding too long Nocturia: 2x Stream: normal Leaking: maybe 1x weekly Post void dripping: no Wearing pads/ Depends: yes Urge incontinence: not often Stress incontinence: yes Incontinence without Sensory Awareness: no Abdominal pain: no Flank pain: no Sexual complaints: History of Present Illness Tests reviewed: reviewed UA, PVR, KUB, JAK, CT scan I have reviewed the previous health record information and history for this patient from Dr. Pradhan. I have reviewed and verified the staff HPI to be accurate for this encounter. Review of Systems PHQ Score Initial Depression Screen Score: 0 SCORE ROS - Provider Constitutional: denies weight loss, [...] HPI. Physical Exam Vitals & Measurements HR: 66(Peripheral) BP: 134/74 HT: 64 in HT: 162 cm WT: 97 kg WT: 213.4 lb BMI: 36.96 General Appearance: alert , no acute distress, well nourished, well developed female. Assessment/Plan 74 yo female initially seen for mixed incontinence here for f/u 1. Mixed incontinence (N39.46: Mixed incontinence) BBS 17. Had improvement of incontinence sx after completing PFPT (5 sessions). PVR today 28 mL. Reports worsening UUI on the way to the bathroom if she delays voiding. Also only leaks with coughing/sneezing if she has full bladder. Wearing pads for protection. Voiding q1-2hrs during the day. Able to do effective Kegel exercises. Not currently on any bladder medications. Discussed treatment options for UUI include oral medications, such as Gemtesa/Myrbetriq or anticholinergics, vs procedural intervention, including Botox or Axonics. Risks/benefits and possible SEs of each option discussed in detail. Pt does not feel she is ready proceed with a procedure at this time. However is willing to trial a month of medication to see if sxs improve and thus would be a candidate for Botox. Prefers to try Myrbetriq/Gemtesa vs anticholinergic as she deals with constipation at baseline. -Start Gemtesa 75 mg qd. Rx sent to [facility]. Possible SEs of medications discussed. Call if cost prohibitive. -Continue Kegels, urge exercises -Timed voids -Bowel regimen -Call if sxs become more bothersome and wish to proceed with Botox 2. Nocturia (R35.1: Nocturia) Getting up 2x/night to void (was 1-3x). Not bothersome. -Cont behavioral modifications -May improve with treatment for #1 3. Kidney stones (N20.0: Calculus of kidney) CT AP w/ Con 04/25/23 [facility] - mild Lt-sided hydro w/ obstructive stone measuring 2.7mm in the UVJ. -Passed stone on own CT AP wo con 05/12/23 [facility] - Punctate nonobstructing bilateral renal stones. No hydro. KUB 05/07/24 [facility] - No visible stones. JAK 05/07/24 [facility] - No stones or hydro noted. Reviewed imaging results which do not show any new stones. No indication for intervention. Will cont to monitor. -Increase water intake w/ lemon -F/u in 1 yr w/ JAK and KUB 4. Asymptomatic microscopic hematuria (R31.21: Asymptomatic microscopic hematuria) UAs: 03/30/23 [facility] - large blood, moderate bacteria, and trace leuks. (around time of stone episode) 04/15/23 [facility] - large blood and trace leuks. (around time of stone episode) 05/07/23 [facility] [place] - neg blood and infection. JAK 05/07/24 [facility] - No renal mass, bladder wall thickening or mass noted. UA today shows moderate blood and trace leuks. Denies gross hematuria. Advised pt we will send urine sample for microscopic evaluation to confirm microscopic hematuria is real vs from contamination or vaginal atrophy. Discussed hematuria workup includes upper urinary tract imaging, evaluation of the urinary cells with urine cytology and possible a FISH test, and a cystoscopy to rule out lower urinary tract pathology. -Urine sample to be sent for micro and cx. If >3 RBC and neg ucx, will proceed with hematuria workup: cysto and CTU -Cont routine UAs and sx monitoring. Pt knows to notify the office if she were to experience gross hematuria or clots. 5. Renal cysts, acquired, bilateral (N28.1: Cyst of kidney, acquired) CT AP wo con 10 (more content not included)... Normal [facility] Comment on above: Result Comment: Elec tronically Signed By: Ramila Pradhan MD\.br\Date and Time Signed: 05/12/24 12:30 EDT\.br\Electronically Co-Signed By: Zofia Winter\.br\Date and Time Co-Signed: 05/12/24 11:01 EDT Perimetry studyon 04-14-2024 [facility] Radiology Study observation (narrative) [facility] No Panel Informationon 03-31 Syl Villalba NP 03/31/2024 9:06 AM L Inj/Asp: L knee on 03/31/2024 9:05 AM Indications: pain Details: 20 G needle, anterolateral approach Medications: 40 mg methylPREDNISolone acetate 40 MG/ML UTILIZING ASEPTIC TECHNIQUE PT GIVEN INJECTION IN LEFT KNEE, NEUROVASC INTACT S/P INJ, TOLERATED WELL Procedure, treatment alternatives, risks and benefits explained, specific risks discussed. Consent was given by the patient. Critical access hospital Colonoscopyon 12-31-2023 [facility] Basophils Auto (Bld) [#/Vol] on 10-01-2023 Basophils (Bld) [#/Vol] 0.0 10 3/uL 0.0-0.1 [facility] Basophils/100 WBC Auto (Bld) on 10-01-2023 Basophils/100 WBC (Bld) 0.5 % 0.2-2.0 [facility] Eosinophils/100 WBC Auto (Bl d)on 10-01-2023 Eosinophils/100 WBC (Bld) 4.6 % 0.9-7.0 [facility] Erythrocyte distribution wid th Auto (RBC) [Ratio]on 10-01-2023 Erythrocyte distribution width (RBC) [Ratio] 16.2 % 11.0-15.0 [facility] Hematocrit Auto (Bld) [Volum e fraction]on 10-01-2023 Hematocrit (Bld) [Volume fraction] 38.0 % 36.0-48.0 [facility] Hemoglobin [Mass/volume] in Bloodon 10-01-2023 Hemoglobin (Bld) [Mass/Vol] 11.3 g/dL 12.0-16.0 [facility] Iron binding capacity [Mass/ volume] in Serum or Plasmaon 10-01-2023 Iron binding capacity [Mass/Vol] 257.0 ug/dL 250.0-450.0 [facility] Iron saturation [Mass Fracti on] in Serum or Plasmaon 10-01-2023 Iron saturation [Mass fraction] 39.7 % [facility] Laboratory - Chemistry and C hemistry - challengeon 10-01-2023 Cobalamin (Vitamin B12) [Mass/Vol] 405.0 pg/mL 193.0-986.0 [facility] Ferritin [Mass/Vol] 345.0 ng/mL 8.0-252.0 [facility] Iron [Mass/Vol] 102.0 ug/dL 50.0-170.0 [facility] Laboratory - Hematology and Cell countson 10-01-2023 Immature granulocytes/100 WBC (Bld) 0.2 % 0.0-0.5 [facility] Leukocytes [#/volume] correc rock for nucleated erythrocytes in Blood by Automated counon 10-01-2023 WBC corrected for nucl RBC Auto (Bld) [#/Vol] 6.1 10 3/uL 4.0-11.0 [facility] Lymphocytes Auto (Bld) [#/Vo l]on 10-01-2023 Lymphocytes (Bld) [#/Vol] 1.7 10 3/uL 1.2-3.8 [facility] Lymphocytes/100 WBC Auto (Bl d)on 10-01-2023 Lymphocytes/100 WBC (Bld) 27.9 % 20.5-60.0 [facility] MCH Auto (RBC) [Entitic mass ]on 10-01-2023 MCH (RBC) [Entitic mass] 19.9 pg 26.7-34.0 [facility] MCHC Auto (RBC) [Mass/Vol]on 10-01-2023 MCHC (RBC) [Mass/Vol] 29.7 g/dL 29.9-35.2 [facility] MCV Auto (RBC) [Entitic vol] on 10-01-2023 MCV (RBC) [Entitic vol] 66.9 fL 81.0-99.0 [facility] Monocytes Auto (Bld) [#/Vol] on 10-01-2023 Monocytes (Bld) [#/Vol] 0.5 10 3/uL 0.3-0.8 [facility] Monocytes/100 WBC Auto (Bld) on 10-01-2023 Monocytes/100 WBC (Bld) 7.9 % 1.7-12.0 [facility] Neutrophils Auto (Bld) [#/Vo l]on 10-01-2023 Neutrophils (Bld) [#/Vol] 3.6 10 3/uL 1.4-6.5 [facility] Neutrophils/100 WBC Auto (Bl d)on 10-01-2023 Neutrophils/100 WBC (Bld) 58.9 % 43.0-75.0 [facility] No Panel Informationon 09-30 Eosinophils # (Auto) 0.3 10 3/uL 0.0-0.7 [facility] Folate 28.20 ng/mL 8.60-58.90 [facility] Immature Granulocyte # (Auto) 0.01 10 3/uL 0.00-0.03 [facility] Platelets Auto (Bld) [#/Vol] on 10-01-2023 Platelets (Bld) [#/Vol] 232 10 3/uL 150-450 [facility] RBC Auto (Bld) [#/Vol]on RBC (Bld) [#/Vol] 5.68 10 6/uL 4.20-5.40 [facility] VC INJ FOAM SCLERO W US MLTI on 12-05-2022 VC INJ FOAM SCLERO W US MLTI Patient: DONNA ESTRELLA Exam Date: 12/05/2022 : 1950 Gender:F Ordering : DR REINA JOSEPH M.D. Admission #: [id number] Family : Order #: [id number] CLICK HERE TO VIEW EXAM RADIOLOGY REPORT [...] with Varithena(r) 2. Intraoperative ultrasound guidance Physician: Harrison Gil M.D. Anesthesia: None. Indications for Procedure: [...] days. PERSONNEL: Efe Hoskins R.N. Dictated by: Harrison Gil M.D. on 12/05/2022 at 09:14 Approved by: Harrison Gil M.D. on 12/05/2022 at 09:41 Normal [facility] VC CONSULT FOLLOWUPon 2022 VC CONSULT FOLLOWUP Patient: DONNA ESTRELLA Exam Date: 11/28/2022 : 1950 Gender:F Ordering : DR REINA JOSEPH M.D. Admission #: [id number] Family : Order #: [id number] CLICK HERE TO VIEW EXAM RADIOLOGY REPORT [...] physical exam and consultation Dictated by: Reina Joseph MD on 11/28/2022 at 08:32 Approved by: Reina Joseph MD on 11/28/2022 at 08:38 [facility] VC EXT VENOUS RT LIMITEDon 0 11-28-2022 VC EXT VENOUS RT LIMITED Patient: DONNA ESTRELLA Exam Date: 11/28/2022 : 1950 Gender:F Ordering : DR REINA JOSEPH M.D. Admission #: [id number] Family : Order #: [id number] CLICK HERE TO VIEW EXAM RADIOLOGY REPORT [...] varicose veins are observed Dictated by: Reina Joseph MD on 11/28/2022 at 08:16 Approved by: Reina Joseph MD on 11/28/2022 at 08:17 [facility] VC INJ FOAM SCLERO W US MLTI on 11-25-2022 VC INJ FOAM SCLERO W US MLTI Patient: DONNA ESTRELLA Exam Date: 11/25/2022 : 1950 Gender:F Ordering : DR REINA JOSEPH M.D. Admission #: [id number] Family : Order #: [id number] CLICK HERE TO VIEW EXAM RADIOLOGY REPORT [...] with Varithena(r) 2. Intraoperative ultrasound guidance Physician: Harrison Gil M.D. Anesthesia: None. Indications for Procedure: [...] days. PERSONNEL: Efe Hoskins R.N. Dictated by: Harrison Gil M.D. on 11/25/2022 at 11:59 Approved by: Harrison Gil M.D. on 11/25/2022 at 12:03 Normal [facility] VC CONSULT FOLLOWUPon 2022 VC CONSULT FOLLOWUP Patient: DONNA ESTRELLA Exam Date: 11/13/2022 : 1950 Gender:F Ordering : DR REINA JOSEPH M.D. Admission #: [id number] Family : Order #: [id number] CLICK HERE TO VIEW EXAM RADIOLOGY REPORT [...] the physical exam and consultation Dictated by: Harrison Gil M.D. on 11/13/2022 at 09:52 Approved by: Harrison Gil M.D. on 11/13/2022 at 09:54 Normal [facility] EXT VENOUS LT LIMITEDon 0 11-13-2022 EXT VENOUS LT LIMITED Patient: DONNA ESTRELLA Exam Date: 11/13/2022 : 1950 Gender:F Ordering : DR REINA JOSEPH M.D. Admission #: [id number] Family : Order #: [id number] CLICK HERE TO VIEW EXAM RADIOLOGY REPORT [...] of left small saphenous vein. Dictated by: Harrison iGl M.D. on 11/13/2022 at 09:49 Approved by: Harrison Gil M.D. on 11/13/2022 at 09:52 Normal [facility] ENDOVENOUS ABL 1ST V LTon 04-12-2023 VC ENDOVENOUS ABL 1ST V LT Patient: DONNA ESTRELLA Exam Date: 11/06/2022 : 1950 Gender:F Ordering : DR REINA JOSEPH M.D. Admission #: [id number] Family : Order #: [id number] CLICK HERE TO VIEW EXAM RADIOLOGY REPORT [...] the left small saphenous vein. Dictated by: Harrison Gil M.D. on 11/06/2022 at 14:01 Approved by: Harrison Gil M.D. on 11/06/2022 at 14:02 Normal [facility] VC CONSULT FOLLOWUPon 2022 VC CONSULT FOLLOWUP Patient: DONNA ESTRELLA Exam Date: 10/23/2022 : 1950 Gender:F Ordering : DR REINA JOSEPH M.D. Admission #: [id number] Family : Order #: [id number] CLICK HERE TO VIEW EXAM RADIOLOGY REPORT [...] physical exam and consultation Dictated by: Reina Joseph MD on 10/23/2022 at 13:30 Approved by: Reina Joseph MD on 10/23/2022 at 13:32 Normal [facility] VC EXT VENOUS RT LIMITEDon 0 10-23-2022 VC EXT VENOUS RT LIMITED Patient: DONNA ESTRELLA. Exam Date: 10/23/2022 : 1950 Gender:F Ordering : DR REINA JOSEPH M.D. Admission #: [id number] Family : Order #: [id number] CLICK HERE TO VIEW EXAM RADIOLOGY REPORT [...] from the saphenofemoral junction Dictated by: Reina Joseph MD on 10/23/2022 at 10:52 Approved by: Reina Joseph MD on 10/23/2022 at 10:54 Normal [facility] VC ENDOVENOUS ABL 1ST V RTon 10-18-2022 VC ENDOVENOUS ABL 1ST V RT Patient: APURVADONNA MOLINARafia Exam Date: 10/18/2022 : 1950 Gender:F Ordering : DR REINA JOSEPH M.D. Admission #: [id number] Family : Order #: [id number] CLICK HERE TO VIEW EXAM RADIOLOGY REPORT [...] right great saphenous vein. Dictated by: Reina Joseph MD on 10/18/2022 at 10:14 Approved by: Reina Joseph MD on 10/18/2022 at 10:20 Normal [facility] CBC AUTO DIFFon 05-28-2022 BASO # 0.0 103/ul Normal 0.0-0.1 [facility] Comment on above: Performed By: #### D ATCBC ####[facility] [address] [place], [place] [address]Dr. Ольга Dacosta Basophils/100 WBC (Bld) 0.7 % Normal 0.2-2.0 [facility] Comment on above: Performed By: #### D ATCBC ####[facility] [address] [place], [place] [address]Dr. Ольга Dacosta EO # 0.3 103/ul Normal 0.0-0.7 [facility] Comment on above: Performed By: #### D ATCBC ####[facility] [address] [place], [place] [address]Dr. Ольга Dacosta Eosinophils/100 WBC (Bld) 6.1 % Normal 0.9-7.0 [facility] Comment on above: Performed By: #### D ATCBC ####[facility] H[address] [place], [place] [address]Dr. Ольга Dacosta Erythrocyte distribution width (RBC) [Ratio] 16.3 % Critically high 11.0-15.0 [facility] Comment on above: Performed By: #### D ATCBC ####[facility] [address] [place] [address]Dr. Ольга Dacosta Hematocrit (Bld) [Volume fraction] 39.5 % Normal 36.0-48.0 [facility] Comment on above: Performed By: #### D ATCBC ####[facility] [address] [place] [address]Dr. Ольга Dacosta Hemoglobin (Bld) [Mass/Vol] 12.2 g/dL Normal 12.0-16.0 [facility] Comment on above: Performed By: #### D ATCBC ####[facility] [address] [place], [place] [address]Dr. Ольга Dacosta IG # 0.01 10e3/ul Normal 0.00-0.03 [facility] Comment on above: Performed By: #### D ATCBC ####[facility] [address] [place], [place] [address]Dr. Ольга Dacosta IG % 0.2 % Normal 0.0-0.5 [facility] Comment on above: Performed By: #### D ATCBC ####[facility] [address] [place] [address]Dr. Ольга Dacosta LYMPH # 1.9 103/ul Normal 1.2-3.8 [facility] Comment on above: Performed By: #### D ATCBC ####[facility] [address] [place] [id number]. Ольга Dacosta Lymphocytes/100 WBC (Bld) 34.8 % Normal 20.5-60.0 [facility] Comment on above: Performed By: #### D ATCBC ####[facility] [address] [place] [id number]. Ольга Dacosta MCH (RBC) [Entitic mass] 20.4 pg Critically low 26.7-34.0 [facility] Comment on above: Performed By: #### D ATCBC ####[facility] [address] [place], [place] [address]Dr. Ольга Dacosta MCHC (RBC) [Mass/Vol] 30.9 g/dL Normal 29.9-35.2 [facility] Comment on above: Performed By: #### D ATCBC ####[facility] [address] [place] [id number]. Ольга Dacosta MCV (RBC) [Entitic vol] 66.2 fL Critically low 81.0-99.0 [facility] Comment on above: Performed By: #### D ATCBC ####[facility] [address] [place] [address]Dr. Ольга Dacosta MONO # 0.5 103/ul Normal 0.3-0.8 [facility] Comment on above: Performed By: #### D ATCBC ####[facility] [address] [place] [address]Dr. Ольга Dacosta Monocytes/100 WBC (Bld) 9.2 % Normal 1.7-12.0 [facility] Comment on above: Performed By: #### D ATCBC ####[facility] [address] [place], [place] [address]Dr. Ольга Dacosta NEUT # 2.7 103/ul Normal 1.4-6.5 [facility] Comment on above: Performed By: #### D ATCBC ####[facility] [address] [place], [place] [id number]. Ольга Dacosta Neutrophils/100 WBC (Bld) 49.0 % Normal 43.0-75.0 [facility] Comment on above: Performed By: #### D ATCBC ####[facility] [address] [place], [place] [address]Dr. Ольга Dacosta Platelet mean volume (Bld) [Entitic vol] 11.4 fL Normal 9.5-13.5 [facility] Comment on above: Performed By: #### D ATCBC ####[facility] [address] [place], [place] [id number]. Ольга Dacosta PLT 243 103/ul Normal 150-450 [facility] Comment on above: Performed By: #### D ATCBC ####[facility] [address] [place], [place] [address]Dr. Ольга Dacosta RBC 5.97 106/ul Critically high 4.20-5.40 [facility] Comment on above: Performed By: #### D ATCBC ####[facility] [address] [place] [address]Dr. Ольга Dacosta WBC 5.5 103/ul Normal 4.0-11.0 [facility] Comment on above: Performed By: #### D ATCBC ####[facility] [address] [place] [address]Dr. Ольга Dacosta JERMAN - TSHon 05-28-2022 TSH 1.495 uIU/mL Normal 0.358-3.740 [facility] Comment on above: Performed By: #### D TACOS DATBMP ####[facility] [address] [place], [place] [address]Dr. Ольга Dacosta TSH RANGE SEE BELOW Normal [facility] Comment on above: Result Comment: <0.3 4 UIU/ml HYPERTHYROID 0.34-5.60 UIU/ml EUTHYROID >5.60 UIU/ml HYPOTHYROID Performed By: #### Elke BALDERRAMA DATBMP ####[facility] [address] [place], [place] [address]Dr. Ольга Dacosta JERMAN- BMP WITH LIPIDon 2021 Anion gap [Moles/Vol] 10.3 mmol/L Normal [facility] Comment on above: Performed By: #### D TACOS, DATBMP ####[facility] [address] [place] [address]Dr. Nerissakathy Dacosta Calcium [Mass/Vol] 9.1 mg/dL Normal 8.5-10.1 [facility] Comment on above: Performed By: #### D TACOS DATBMP ####[facility] [address] [place] [address]Dr. Ольга Dacosta Chloride [Moles/Vol] 104 mmol/L Normal 98-107 [facility] Comment on above: Performed By: #### D ATTERIC, DATBMP ####[facility] [address] [place] [address]Dr. Ольга Dacosta Cholesterol [Mass/Vol] 162 mg/dL Normal <=200 [facility] Comment on above: Performed By: #### D ATTSH, DATBMP ####[facility] [address] [place] [address]Dr. Ольга Dacosta Cholesterol in HDL [Mass/Vol] 59 mg/dL Normal 40-60 [facility] Comment on above: Performed By: #### D ATTSH, DATBMP ####[facility] [address] [place] [address]Dr. Ольга Dacosta Cholesterol in LDL [Mass/Vol] 88.0 mg/dL Normal [facility] Comment on above: Performed By: #### D ATTSH, DATBMP ####[facility] [address] [place] [address]Dr. Ольга Dacosta CO2 [Moles/Vol] 29.1 mmol/L Normal 21.0-32.0 [facility] Comment on above: Performed By: #### D ATTSH, DATBMP ####[facility] [address] [place], [place] [address]Dr. Ольга Dacosta Creatinine [Mass/Vol] 0.59 mg/dL Normal 0.55-1.02 [facility] Comment on above: Performed By: #### Elke BALDERRAMA, DATBMP ####[facility] [address] [place], [place] [address]Dr. Ольга Dacosta EGFR-AF NEW ZEALANDER >60 Normal >=60 [facility] Comment on above: Performed By: #### D ATTERIC, DATBMP ####[facility] [address] [place], [place] [address]Dr. Ольга Dacosta EGFR-NON AF NEW ZEALANDER >60 Normal >=60 [facility] Comment on above: Performed By: #### D ATTSH, DATBMP ####[facility] [address] [place] [address]Dr. Ольга Dacosta Glucose [Mass/Vol] 100 mg/dL Normal 74-106 [facility] Comment on above: Performed By: #### D ATTSH, DATBMP ####[facility] [address] [place] [address]Dr. Ольга Dacosta HDL NORMAL > or = 60 mg/dl - LO W CARDIOVASCULAR RISK <40 mg/dl - HIGH CARDIOVASCULAR RISK Normal [facility] Comment on above: Performed By: #### D TACOS DATBMP ####[facility] [address] [place] [address]Dr. Ольга Praneeth LDL CALC NORMAL SEE BELOW Normal [facility] Comment on above: Result Comment: <100 mg/dl OPTIMAL 100 - 129 mg/dl NEAR OR ABOVE OPTIMAL 130 - 159 mg/dl BORDERLINE HIGH 160 - 189 mg/dl HIGH >190 mg/dl VERY HIGH Performed By: #### D ATTERIC, DATBMP ####[facility] [address] [place] [address]Dr. Ольга Dacosta Potassium [Moles/Vol] 4.4 mmol/L Normal 3.5-5.1 [facility] Comment on above: Performed By: #### D TACOS DATBMP ####[facility] Rx[address] [place], [place] [address]Dr. Ольга Dacosta Sodium [Moles/Vol] 139 mmol/L Normal 136-145 [facility] Comment on above: Performed By: #### D TACOS DATBMP ####[facility] [address] [place], [place] [address]Dr. Ольга Dacosta Triglyceride [Mass/Vol] 75 mg/dL Normal <=150 [facility] Comment on above: Performed By: #### Elke BALDERRAMA DATBMP ####[facility] [address] [place], [place] [address]Dr. Ольга Dacosta Urea nitrogen [Mass/Vol] 25.0 mg/dL Critically high 7.0-18.0 [facility] Comment on above: Performed By: #### D ATTERIC DATBMP ####[facility] [address] [place], [place] [address]Dr. Ольга Dacosta Urea nitrogen/Creatinine [Mass ratio] 42.4 mg/mg Normal [facility] Comment on above: Performed By: #### D ATTERIC, DATBMP ####[facility] [address] [place] [address]Dr. Ольга Dacosta VLDL CALC 15.0 mg/dL Normal [facility] Comment on above: Performed By: #### D [facility] ####[facility] [address] [place], [place] [address]FjRafia Dacosta VC COMP CONSULTATIONon 02-28 VC COMP CONSULTATION Patient: DONNA ESTRELLA Exam Date: 02/28/2022 : 1950 Gender:F Ordering : DR REINA JOSEPH M.D. Admission #: [id number] Family : Order #: [id number] CLICK HERE TO VIEW EXAM RADIOLOGY REPORT [...] arterial disease 5. CEAP: C3, EC, AP, ME PLAN: 1. Continued use of compression stockings [...] the physical exam and consultation Dictated by: Harrison Gil M.D. on 02/28/2022 at 13:32 Approved by: Harrison Gil M.D. on 02/28/2022 at 13:38 Normal [facility] VC VENOUS REFLUX TITA LMTon 0 02-28-2022 VC VENOUS REFLUX TITA LMT Patient: DONNA ESTRELLA Exam Date: 02/28/2022 : 1950 Gender:F Ordering : DR REINA JOSEPH M.D. Admission #: [id number] Family : Order #: [id number] CLICK HERE TO VIEW EXAM RADIOLOGY REPORT [...] chronic thrombus visualized Compressibility: Normal Flow: Normal Account Coordinator: Dist/med calf 3.2mm with 0s reflux. Mid/med [...] for venous ablation is recommended. Dictated by: Harrison Gil M.D. on 02/28/2022 at 09:44 Approved by: Harrison Gil M.D. on 02/28/2022 at 09:48 Normal [facility] MG MAMM SCREEN 3D TITA CADon 01-21-2022 MG MAMM SCREEN 3D ITTA CAD Patient: DONNA ESTRELLA Exam Date: 01/21/2022 : 1950 Gender:F Ordering : DR ALDEN WHEELER D.O. Admission #: [id number] Family : Order #: [id number] CLICK HERE TO VIEW EXAM RADIOLOGY REPORT [...] lung cancer at age 61. LOCATION: [facility] BREAST COMPOSITION: Scattered areas fibroglandular density. [...] LUMP SHOULD BE BIOPSIED. Dictated by: Reina Joseph MD on 01/21/2022 at 14:32 Approved by: Reina Jsoeph MD on 01/21/2022 at 14:35 Normal [facility] URINALYSISOrdered By: Danielle de la rosa [...] Interpretation Code Negative [facility] UA Auto SS [place].plasma/Lithiu m.RBC (Bld) [Mass ratio] 4-20 /HPF Normal [...] [facility] UA Auto SS Urobilinogen Qn (U) 0.3604364 {[place]'U}/dL Normal 0.0 - 1.0 EU/dL [facility] UA Auto SS WBC Auto Ql (U) Negative (12/12/21 11:49 AM) Normal Negative [facility] UA Auto SS WBC LM.HPF (Urine sed) [#/Area] 0-5 /HPF Normal 0-5/HPF [facility] UA Auto SS Vital Signs Date Time Vital Sign Value Performing Clinician Facility 04-14-2025 08:22-0400 Body height 162.6 cm Harley Questetra Phone: [facility] 04-14-2025 08:22-0400 Body mass index (BMI) [Ratio] 34.6 kg/m2 Harley Brown DO Work Phone: [facility] 04-14-2025 08:22-0400 Body weight 91.44 kg Harley Brown DO Work Phone: [facility] 01-13-2025 11:19-0400 Body height 162.6 cm Harley Brown DO Work Phone: [facility] 01-13-2025 11:19-0400 Body mass index (BMI) [Ratio] 35.7 kg/m2 Harley Brown DO Work Phone: [facility] 01-13-2025 11:19-0400 Body weight 94.35 kg Harley Brown DO Work Phone: [facility] 12-16-2024 09:50-0400 Body height 162.6 cm Harley Brown DO Work Phone: [facility] 12-16-2024 09:50-0400 Body mass index (BMI) [Ratio] 35.7 kg/m2 Harley Brown DO Work Phone: [facility] 12-16-2024 09:50-0400 Body weight 94.35 kg Harley Brown DO Work Phone: [facility] 12-02-2024 11:38-0400 Hourly Rounding Harley Brown [facility] 12-02-2024 11:38-0400 Promise to Return Harley Brown [facility] 12-02-2024 10:00-0400 Hourly Rounding Harley Brown [facility] 12-02-2024 10:00-0400 Promise to Return Harley Brown [facility] 12-02-2024 09:22-0400 Hourly Rounding Harley Brown [facility] 12-02-2024 09:22-0400 Promise to Return Harley Brown [facility] 12-02-2024 07:54-0400 Heart rate 56 /min Harlye Arciniega [facility] 12-02-2024 07:54-0400 SaO2% (BldA) [Mass fraction] 96 % Harley Arciniega [facility] 12-02-2024 07:54-0400 Respiratory rate 18 /min Harley Arciniega [facility] 12-02-2024 07:53-0400 Body temperature 97.7 [degF] Harley Arciniega [facility] 12-02-2024 07:53-0400 Diastolic blood pressure 71 mm[Hg] Harley Arciniega [facility] 12-02-2024 07:53-0400 Mean blood pressure 88 mm[Hg] Harley Arciniega [facility] 12-02-2024 07:53-0400 Systolic blood pressure 123 mm[Hg] Harley Arciniega [facility] 12-02-2024 03:35-0400 Blood Pressure Location Harley Arciniega [facility] 12-02-2024 03:35-0400 Body temperature 97.7 [degF] Harley Arciniega [facility] 12-02-2024 03:35-0400 Diastolic blood pressure 80 mm[Hg] Harley Arciniega [facility] 12-02-2024 03:35-0400 Heart rate 56 /min Harley Arciniega [facility] 12-02-2024 03:35-0400 Mean blood pressure 101 mm[Hg] Harley Arciniega [facility] 12-02-2024 03:35-0400 Respiratory rate 16 /min Harley Arciniega [facility] 12-02-2024 03:35-0400 SaO2% (BldA) [Mass fraction] 95 % Harley Arciniega [facility] 12-02-2024 03:35-0400 Systolic blood pressure 143 mm[Hg] Harley Arciniega [facility] 12-01-2024 23:54-0400 Blood Pressure Location Harley Arciniega [facility] 12-01-2024 23:54-0400 Body temperature 97.52 [degF] Harley Arciniega [facility] 12-01-2024 23:54-0400 Diastolic blood pressure 75 mm[Hg] Harley Arciniega [facility] 12-01-2024 23:54-0400 Heart rate 56 /min Harley Arciniega [facility] 12-01-2024 23:54-0400 Mean blood pressure 92 mm[Hg] Harley Arciniega [facility] 12-01-2024 23:54-0400 Respiratory rate 16 /min Harley Arciniega [facility] 12-01-2024 23:54-0400 SaO2% (BldA) [Mass fraction] 95 % Harley Arciniega [facility] 12-01-2024 23:54-0400 Systolic blood pressure 126 mm[Hg] Harley Arciniega [facility] 12-01-2024 16:49-0400 Body temperature 97.7 [degF] Harley Arciniega [facility] 12-01-2024 16:48-0400 Mean blood pressure 96 mm[Hg] Harley Arciniega [facility] 12-01-2024 10:41-0400 Body temperature 96.26 [degF] Harley Arciniega [facility] 12-01-2024 10:39-0400 Mean blood pressure 90 mm[Hg] Harley Arciniega [facility] 12-01-2024 10:21-0400 Respiratory rate 14 /min Harley Arciniega [facility] 12-01-2024 10:21-0400 Body temperature 97.34 [degF] Harley Arciniega [facility] 12-01-2024 10:21-0400 Mean blood pressure 94 mm[Hg] Harley Arciniega [facility] 12-01-2024 10:10-0400 Respiratory rate 17 /min Harley Arciniega [facility] 12-01-2024 10:05-0400 Respiratory rate 13 /min Harley Arciniega [facility] 12-01-2024 09:37-0400 Body temperature 96.98 [degF] Harley Arciniega [facility] 12-01-2024 06:15-0400 Heart rate 66 /min Harley Arciniega [facility] 12-01-2024 06:02-0400 Blood Pressure Location Harley Arciniega [facility] 11-23-2024 11:40-0400 Body height 162.56 cm [facility] 11-23-2024 11:40-0400 Body mass index (BMI) [Ratio] 35.9 kg/m2 [facility] 11-23-2024 11:40-0400 Body weight 94.97 kg [facility] 11-23-2024 11:40-0400 Diastolic blood pressure 82 mm[Hg] [facility] 11-23-2024 11:40-0400 Heart rate 64 /min [facility] 11-23-2024 11:40-0400 Respiratory rate 12 /min [facility] 11-23-2024 11:40-0400 Systolic blood pressure 130 mm[Hg] [facility] 11-18-2024 10:33-0400 Diastolic blood pressure 75 mm[Hg] Harley Arciniega [facility] 11-18-2024 10:33-0400 Heart rate 72 /min Harley Arciniega [facility] 11-18-2024 10:33-0400 Mean blood pressure 92 mm[Hg] Harley Arciniega [facility] 11-18-2024 10:33-0400 Systolic blood pressure 125 mm[Hg] Harley Arciniega [facility] 11-18-2024 10:32-0400 Heart rate 75 /min Harley Arciniega [facility] 11-18-2024 10:32-0400 SaO2% (BldA) [Mass fraction] 96 % Harely Arciniega [facility] 11-18-2024 10:32-0400 Respiratory rate 18 /min Harley Arciniega [facility] 11-18-2024 10:32-0400 Diastolic blood pressure 84 mm[Hg] Harley Arciniega [facility] 11-18-2024 10:32-0400 Mean blood pressure 105 mm[Hg] Harley Arciniega [facility] 11-18-2024 10:32-0400 Systolic blood pressure 147 mm[Hg] Harley Arciniega [facility] 11-18-2024 09:21-0400 Body height 162.6 cm Harleyalma Arciniega DO Work Phone: [facility] 11-18-2024 09:21-0400 Body mass index (BMI) [Ratio] 35.7 kg/m2 Harleyalma Arciniega DO Work Phone: [facility] 11-18-2024 09:21-0400 Body weight 94.35 kg Harleyalma Arciniega DO Work Phone: [facility] 06-17-2024 09:52-0500 Body mass index (BMI) [Ratio] 36.6 kg/m2 [facility] 06-17-2024 09:36-0500 Body height 162.56 cm [facility] 06-17-2024 09:36-0500 Body weight 96.67 kg [facility] 06-17-2024 09:36-0500 Diastolic blood pressure 78 mm[Hg] [facility] 06-17-2024 09:36-0500 Heart rate 74 /min [facility] 06-17-2024 09:36-0500 Respiratory rate 12 /min [facility] 06-17-2024 09:36-0500 Systolic blood pressure 127 mm[Hg] [facility] 05-12-2024 10:21-0400 Blood Pressure Location Ramila Lue [facility] 05-12-2024 10:21-0400 Diastolic blood pressure 74 mm[Hg] Ramila Lue [facility] 05-12-2024 10:21-0400 Heart rate 66 /min Ramila Lue [facility] 05-12-2024 10:21-0400 Systolic blood pressure 134 mm[Hg] Ramila Lue [facility] 03-24-2024 10:06-0400 Body height 162.56 cm [facility] 03-24-2024 10:06-0400 Body mass index (BMI) [Ratio] 36.4 kg/m2 [facility] 03-24-2024 10:06-0400 Body weight 96.27 kg [facility] 03-24-2024 10:06-0400 Diastolic blood pressure 82 mm[Hg] [facility] 03-24-2024 10:06-0400 Heart rate 77 /min [facility] 03-24-2024 10:06-0400 Respiratory rate 12 /min [facility] 03-24-2024 10:06-0400 Systolic blood pressure 136 mm[Hg] [facility] 03-10-2024 14:58-0400 Body height 162.56 cm [facility] 03-10-2024 14:58-0400 Body mass index (BMI) [Ratio] 36.7 kg/m2 [facility] 03-10-2024 14:58-0400 Body weight 97.06 kg [facility] 03-10-2024 14:58-0400 Diastolic blood pressure 75 mm[Hg] [facility] 03-10-2024 14:58-0400 Heart rate 84 /min [facility] 03-10-2024 14:58-0400 Respiratory rate 12 /min [facility] 03-10-2024 14:58-0400 Systolic blood pressure 114 mm[Hg] [facility] 12-05-2023 12:01-0400 Body height 163.8 cm Rosmerylizzy Guillermo [employer] MACHINE OPERATOR-TRIAL CONSULTANT Work Phone: [facility] 12-05-2023 12:01-0400 Body mass index (BMI) [Ratio] 36.4 kg/m2 Rosmerylizzy Guillermo [employer]ING[employer] MACHINE OPERATOR-TRIAL CONSULTANT Work Phone: [facility] 12-05-2023 12:01-0400 Body weight 97.7 kg Rosmery Eagle BALL [employer]INGE MACHINE OPERATOR-TRIAL CONSULTANT Work Phone: [facility] 12-05-2023 12:01-0400 Diastolic blood pressure 71 mm[Hg] Rosmery Guillermo BALL [employer]ING[employer] MACHINE OPERATOR-TRIAL CONSULTANT Work Phone: [facility] 12-05-2023 12:01-0400 Heart rate 81 /min Rosmery Eagle BALL [employer]INGE MACHINE OPERATOR-TRIAL CONSULTANT Work Phone: [facility] 12-05-2023 12:01-0400 Systolic blood pressure 137 mm[Hg] Rosmery Guillermo BALL FRINGE MACHINE OPERATOR-TRIAL CONSULTANT Work Phone: [facility] 11-11-2023 15:50-0400 Body height 162.56 cm [facility] 11-11-2023 15:50-0400 Body mass index (BMI) [Ratio] 36.7 kg/m2 [facility] 11-11-2023 15:50-0400 Body weight 97.12 kg [facility] 11-11-2023 15:50-0400 Diastolic blood pressure 84 mm[Hg] [facility] 11-11-2023 15:50-0400 Heart rate 73 /min [facility] 11-11-2023 15:50-0400 Respiratory rate 12 /min [facility] 11-11-2023 15:50-0400 Systolic blood pressure 132 mm[Hg] [facility] 05-07-2023 08:03-0400 Blood Pressure Location Ramila Lue [facility] 05-07-2023 08:03-0400 Diastolic blood pressure 73 mm[Hg] Ramila Lue [facility] 05-07-2023 08:03-0400 Heart rate 70 /min Ramila Lue [facility] 05-07-2023 08:03-0400 Respiratory rate 16 /min Ramila Lue [facility] 05-07-2023 08:03-0400 Systolic blood pressure 127 mm[Hg] Ramila Lue [facility] 04-22-2023 08:45-0400 Body height 162.56 cm Alden Ball Other Charge Payment [facility] Other 04-22-2023 08:45-0400 Body mass index (BMI) [Ratio] 36.8 kg/m2 Alden Ball Other Charge Payment [facility] Other 04-22-2023 08:45-0400 Body weight 97.25 kg Alden Ball Other [email or web address] Other 04-22-2023 08:45-0400 Diastolic blood pressure 83 mm[Hg] Alden Ball Other [email or web address] Other 04-22-2023 08:45-0400 Respiratory rate 12 /min Alden Ball Other [email or web address] Other 04-22-2023 08:45-0400 Systolic blood pressure 135 mm[Hg] Alden Ball Other [email or web address] Other 12-30-2022 08:45-0400 Body height 162.56 cm Alden Ball Other [email or web address] Other 12-30-2022 08:45-0400 Body mass index (BMI) [Ratio] 37.35 kg/m2 Alden Ball Other [email or web address] Other 12-30-2022 08:45-0400 Body weight 98.7 kg Alden Ball Other [email or web address] Other 12-30-2022 08:45-0400 Diastolic blood pressure 74 mm[Hg] Alden Ball Other [email or web address] Other 12-30-2022 08:45-0400 Respiratory rate 12 /min Alden Ball Other [email or web address] Other 12-30-2022 08:45-0400 Systolic blood pressure 121 mm[Hg] Alden Ball Other [email or web address] Other 11-01-2022 10:30-0400 Body height 162.56 cm Alden Ball Other [email or web address] Other 11-01-2022 10:30-0400 Body mass index (BMI) [Ratio] 37.72 kg/m2 Alden Ball Other [facility] Other 11-01-2022 10:30-0400 Body weight 99.7 kg Alden Ball Other [facility] Other 11-01-2022 10:30-0400 Diastolic blood pressure 72 mm[Hg] Alden Ball Other [facility] Other 11-01-2022 10:30-0400 Respiratory rate 12 /min Alden Ball Other [facility] Other 11-01-2022 10:30-0400 Systolic blood pressure 122 mm[Hg] Alden Ball Other [facility] Other 05-01-2022 08:17-0400 Blood Pressure Location Ramila Lue [facility] 05-01-2022 08:17-0400 Diastolic blood pressure 80 mm[Hg] Ramila Lue [facility] 05-01-2022 08:17-0400 Heart rate 74 /min Ramila Lue [facility] 05-01-2022 08:17-0400 Systolic blood pressure 132 mm[Hg] Ramila Lue [facility] 12-12-2021 11:07-0400 Blood Pressure Location Ramila Lue [facility] 12-12-2021 11:07-0400 Diastolic blood pressure 83 mm[Hg] [facility] 12-12-2021 11:07-0400 Heart rate 69 /min Ramila Pradhan [facility] 12-12-2021 11:07-0400 Respiratory rate 16 /min Ramila Pradhan [facility] 12-12-2021 11:07-0400 Systolic blood pressure 135 mm[Hg] [facility] Pradhan [facility] Currently Encounters Encounter Date Encounter Type Care Provider Facility Start: 06-01-2025 ambulatory Ramila Pradhan Facility:[facility] Start: 04-14-2025 End: 04-14-2025 Patient encounter procedure Harley Arciniega DO Work Phone: [facility] Comment on above: Status post total le ft knee replacement (Primary Dx); Chronic pain of right knee Start: 04-14-2025 End: 04-14-2025 ambulatory HARLEY ARCINIEGA Not Available Start: 04-13-2025 End: 04-13-2025 Bamboo flowsheet Clay Torres DO Work Phone: [facility] Start: 04-13-2025 End: 04-13-2025 Bamboo flowsheet Clay Torres DO Work Phone: [facility] Start: 04-13-2025 End: 04-13-2025 ambulatory CLAY TORRES Not Available Start: 04-06-2025 End: 04-06-2025 Bamboo flowsheet Clay Torres DO Work Phone: [facility] Start: 04-06-2025 End: 04-06-2025 Bamboo flowsheet Clay Torres DO Work Phone: [facility] Start: 04-06-2025 End: 04-06-2025 ambulatory CLAY TORRES Not Available Start: 02-25-2025 End: 02-25-2025 ambulatory Lauren X Orzech Facility:[facility] Start: 02-25-2025 End: 02-25-2025 Patient encounter procedure Lauren X Orzech [facility] Start: 01-13-2025 End: 01-13-2025 Patient encounter procedure Harley Arciniega DO Work Phone: [facility] Comment on above: Status post total le ft knee replacement (Primary Dx); Chronic pain of right knee Start: 01-13-2025 End: 01-13-2025 ambulatory HARLEY ARCINIEGA Not Available Start: 01-13-2025 End: 01-13-2025 ambulatory HARLEY ARCINIEGA Not Available Start: 12-29-2024 End: 12-29-2024 Bamboo flowsheet Clay Torres DO Work Phone: [facility] Start: 12-29-2024 End: 12-29-2024 Bamboo flowsheet Clay Torres DO Work Phone: [facility] Start: 12-29-2024 End: 12-29-2024 ambulatory CLAY TORRES Not Available Start: 12-22-2024 End: 12-22-2024 Bamboo flowsheet Harley Arciniega DO Work Phone: [facility] Start: 12-22-2024 End: 12-22-2024 Bamboo flowsheet Harley Arciniega DO Work Phone: [facility] Start: 12-22-2024 End: 12-22-2024 ambulatory HARLEY ARCINIEGA Not Available Start: 12-16-2024 End: 12-16-2024 Patient encounter procedure Harley Arciniega DO Work Phone: [facility] Comment on above: Status post total le ft knee replacement (Primary Dx) Start: 12-16-2024 End: 12-16-2024 ambulatory HARLEY Amy SUZE Not Available Start: 12-02-2024 End: 12-02-2024 Clinisync Result Encounter Harley Reyes Suze DO Work Phone: [facility]solic[facility] Start: 12-02-2024 End: 12-02-2024 Clinisync Result Encounter Harley Reyes Suze DO Work Phone: [facility] Start: 12-01-2024 End: 12-01-2024 Clinisync Result Encounter Harley Reyes Suze DO Work Phone: [facility] Start: 12-01-2024 End: 12-01-2024 Clinisync Result Encounter Harley Reyes Suze DO Work Phone: [facility] Start: 12-01-2024 End: 12-02-2024 ambulatory Harley Arciniega Facility:[facility] Start: 12-01-2024 End: 12-02-2024 Patient encounter procedure Harley Reyes Suze [facility] Start: 11-29-2024 End: 11-29-2024 Bamboo ruben Wagoner PT Work Phone: [facility] Start: 11-29-2024 End: 11-29-2024 Bamboo flowsheet Shawn Wagoner PT Work Phone: [facility] Start: 11-29-2024 End: 11-29-2024 ambulatory Shawn Wagoner PT Work Phone: [facility] Comment on above: Primary osteoarthrit is of left knee Start: 11-23-2024 End: 11-23-2024 ambulatory [facility] Work Phone: Start: 11-23-2024 End: 11-23-2024 Encounter for other preprocedural examination [facility] Start: 11-23-2024 End: 11-23-2024 Patient encounter procedure [facility] Work Phone: Start: 11-18-2024 End: 11-18-2024 Bamboo flowsheet Harley Arciniega DO Work Phone: [facility] Start: 11-18-2024 End: 11-18-2024 Bamboo flowsheet Harley Arciniega DO Work Phone: [facility] Start: 11-18-2024 End: 11-18-2024 Clinisync Result Encounter Harley Arciniega DO Work Phone: [facility] Unsolicited Start: 11-18-2024 End: 11-18-2024 Patient encounter procedure Harley Arciniega DO Work Phone: [facility] Comment on above: Pre-op testing Start: 11-18-2024 End: 11-18-2024 Patient encounter status Harley Arciniega DO Work Phone: [facility] Work Phone: Start: 11-18-2024 End: 11-18-2024 ambulatory Harley Amy Suze Facility:[facility] Start: 11-02-2024 End: 11-02-2024 Orders Only Clay Torres DO Work Phone: [facility] Comment on above: Glaucoma suspect of both eyes (Primary Dx) Start: 10-26-2024 End: 10-26-2024 Refill Clay Torers DO Work Phone: [facility] Comment on above: 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, mild stage Start: 10-05-2024 End: 10-05-2024 ambulatory HARLEY ARCINIEGA Not Available Start: 10-05-2024 End: 10-05-2024 ambulatory HARLEY ARCINIEGA Not Available Start: 09-29-2024 End: 09-29-2024 Bamboo flowsheet Clay Torres DO Work Phone: [facility] Start: 09-29-2024 End: 09-29-2024 Bamboo flowsheet Clay Bedoya Zahler DO Work Phone: [facility] Start: 09-29-2024 End: 09-29-2024 ambulatory CLAY COELHOER Not Available Start: 09-07-2024 End: 09-07-2024 Refill Keyonna Shelton COT Work Phone: [facility] Comment on above: 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, mild stage (CMS/HCC) Start: 08-27-2024 End: 08-27-2024 Refill Stephanie Acosta COT [facility] Comment on above: 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, mild stage (CMS/HCC) Start: 07-09-2024 End: 07-09-2024 Bamboo flowsheet Clay Pricehler DO Work Phone: [facility] Start: 07-09-2024 End: 07-09-2024 Bamboo flowsheet Clay Bedoya Zahler DO Work Phone: [facility] Start: 07-09-2024 End: 07-09-2024 ambulatory CLAY Elke COELHOER Not Available Start: 07-06-2024 End: 07-06-2024 Refill Clay Pricehler DO Work Phone: [facility] Comment on above: 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, mild stage (CMS/HCC) Start: 07-06-2024 End: 07-06-2024 ambulatory CLAY Elke PRICEHLER Not Available Start: 07-05-2024 End: 07-05-2024 Bamboo flowsheet Syl Villalba [employer] WORK[employer] Work Phone: [facility] Start: 07-05-2024 End: 07-05-2024 Bamboo flowsheet Syl Germain Apling [employer] WORK[employer] Work Phone: [facility] Start: 07-05-2024 End: 07-05-2024 Office outpatient visit 15 minutes Syl Villalba [employer] WORKER Work Phone: [facility] Comment on above: Arthritis of right k nee (Primary Dx); Chronic pain of right knee Start: 07-05-2024 End: 07-05-2024 ambulatory SYL VILLALBA Not Available Start: 07-02-2024 End: 07-05-2024 Telephone encounter Syl Villalba [employer] WORK[employer] Work Phone: [facility] Comment on above: injection Start: 06-17-2024 End: 06-17-2024 ambulatory [facility] Work Phone: Start: 06-17-2024 End: 06-17-2024 Patient encounter procedure [facility] Work Phone: Start: 06-15-2024 End: 06-15-2024 Bamboo flowsheet Adriana Flores DO Work Phone: [facility] Start: 06-15-2024 End: 06-15-2024 Bamboo flowsheet Adriana Flores DO Work Phone: [facility] Start: 06-15-2024 End: 06-15-2024 Patient encounter procedure Adriana Flores DO Work Phone: [facility] Comment on above: Arthritis of right k nee Start: 06-15-2024 End: 06-15-2024 ambulatory ADRIANA FLORES Not Available Start: 06-15-2024 Patient encounter procedure [facility] Start: 06-09-2024 Non-patient / Non-visit [facility] Work Phone: Start: 06-08-2024 End: 06-08-2024 Bamboo flowsheet Adriana Flores DO Work Phone: [facility] Start: 06-08-2024 End: 06-08-2024 Bamboo flowsheet Adriana Flores DO Work Phone: [facility] Start: 06-08-2024 End: 06-08-2024 Postop follow up visit related to original px Adriana Flores DO Work Phone: [facility] Comment on above: Arthritis of right k nee Start: 06-08-2024 End: 06-08-2024 ambulatory ADRIANA FLORES Not Available Start: 06-01-2024 End: 06-01-2024 Bamboo flowsheet Adriana Flores DO Work Phone: [facility] Start: 06-01-2024 End: 06-01-2024 Bamboo flowsheet Adriana Flores DO Work Phone: [facility] Start: 06-01-2024 End: 06-01-2024 Office outpatient visit 25 minutes Adriana Flores DO Work Phone: [facility] Comment on above: Arthritis of right k nee (Primary Dx); Chronic pain of right knee Start: 06-01-2024 End: 06-01-2024 ambulatory ADRIANA FLORES Not Available Start: 05-12-2024 End: 05-12-2024 Lab Drop off Ramila Pradhan [facility] Start: 05-12-2024 End: 05-12-2024 ambulatory Ramila Pradhan Facility:[facility] Start: 05-12-2024 End: 05-12-2024 Patient encounter procedure Ramila Pradhan [facility] Start: 04-13-2024 End: 04-13-2024 Bamboo flowsheet Adriana Flores DO Work Phone: [facility] Start: 04-13-2024 End: 04-13-2024 Bamboo flowsheet Adriana Flores DO Work Phone: [facility] Start: 04-13-2024 End: 04-13-2024 Office outpatient visit 15 minutes Adriana Flores DO Work Phone: [facility] Comment on above: Arthritis of right k nee (Primary Dx); Chronic pain of right knee Start: 03-31-2024 End: 03-31-2024 Bamboo flowsheet Syl Germain Orly [employer] WORK[employer] Work Phone: [facility] Start: 03-31-2024 End: 03-31-2024 Bamboo flowsheet Syl Germain Aplvalerie [employer] WORK[employer] Work Phone: [facility] Start: 03-31-2024 End: 03-31-2024 Office outpatient visit 25 minutes Syl Jessa Villalba [employer] WORK[employer] Work Phone: [facility] Comment on above: Chronic pain of righ t knee (Primary Dx); Arthritis of right knee Start: 03-24-2024 End: 03-24-2024 ambulatory [facility] Work Phone: Start: 03-24-2024 End: 03-24-2024 Patient encounter procedure [facility] Work Phone: Start: 03-10-2024 End: 03-10-2024 ambulatory [facility] Work Phone: Start: 03-10-2024 End: 03-10-2024 Patient encounter procedure [facility] Work Phone: Start: 01-01-2024 End: 01-01-2024 Orders Only Dana Roberto [facility] [facility] General [facility] Comment on above: Rectal bleeding Start: 12-05-2023 End: 12-05-2023 ambulatory [facility] Amy GUILLERMO [facility] Start: 12-05-2023 End: 12-05-2023 Office outpatient new 30 minutes Rosmery Guillermo BALL FRINGE MACHINE OPERATOR-TRIAL CONSULTANT Work Phone: [facility] General Surgery Comment on above: Rectal bleeding (Leigh noe Dx) Start: 11-11-2023 End: 11-11-2023 ambulatory [facility] Work Phone: Start: 11-11-2023 End: 11-11-2023 Patient encounter procedure [facility] Work Phone: Start: 10-01-2023 Non-patient / Non-visit [facility] Work Phone: Start: 09-30-2023 Non-patient / Non-visit [facility] Work Phone: Start: 09-25-2023 Non-patient / Non-visit [facility] Work Phone: Start: 06-10-2023 End: 06-10-2023 ambulatory Alden Ball Other [email or web address] Other Start: 06-10-2023 Telephone encounter Alden Ball [facility] Start: 05-07-2023 End: 05-07-2023 Patient encounter procedure Ramila Pradhan [facility] Start: 04-22-2023 End: 04-22-2023 ambulatory Alden Ball Other [email or web address] Other Start: 04-22-2023 Office outpatient vi sit 15 minutes Alden Ball [facility] Start: 02-03-2023 End: 02-03-2023 ambulatory Alden Ball Other [email or web address] Other Start: 02-03-2023 Telephone encounter Alden Ball [facility] Start: 01-24-2023 End: 01-24-2023 ambulatory Alden Ball Other [email or web address] Other Start: 01-24-2023 Telephone encounter Alden Ball [facility] Start: 01-08-2023 End: 01-08-2023 ambulatory Alden Ball Other [email or web address] Other Start: 01-08-2023 Telephone encounter Alden Ball [facility] Start: 12-30-2022 End: 12-30-2022 ambulatory Alden Ball Other [email or web address] Other Start: 12-30-2022 Office outpatient vi sit 15 minutes Alden Wheeler [facility] Start: 12-12-[address] ALDEN WHEELER Facili ty:H1 Start: 12-05-2022 End: 12-06-[address] REINA JOSEPH Facility:H1 Start: 11-28-2022 End: 11-29-[address] REINA JOSEPH Facility:H1 Start: 11-25-2022 End: 11-26-[address] REINA JOSEPH Facility:H1 Start: 11-13-2022 End: 11-14-[address] REINA JOSEPH Facility:H1 Start: 11-06-2022 End: 11-07-[address] REINA JOSEPH Facility:H1 Start: 11-04-2022 End: 11-04-2022 ambulatory Alden Wheeler Other [email or web address] Other Start: 11-04-2022 Telephone encounter Alden Wheeler [facility] Start: 11-01-2022 End: 11-01-2022 ambulatory Alden Wheeler Other [email or web address] Other Start: 11-01-2022 Office outpatient vi sit 15 minutes Alden Wheeler [facility] Start: 10-23-2022 End: 10-24-[address] REINA JOSEPH Facility:H1 Start: 10-18-2022 End: 10-19-[address] REINA JOSEPH Facility:H1 Start: 05-28-2022 End: 05-29-[address] DOCTOR JUAN Facility:H1 Start: 05-27-2022 End: 05-28-[address] DOCTOR JUAN Facility:H1 Start: 05-01-2022 End: 05-01-2022 Patient encounter procedure Ramila Pradhan [facility] Start: 02-28-2022 End: 03-01-[address] REINA JOSEPH Facility:H1 Start: 01-22-2022 End: 01-22-2022 Patient encounter procedure Ed Kramer Jr. [facility] Start: 01-21-2022 End: 01-22-[address] ALDEN WHEELER Facility: Start: 12-12-2021 End: 12-12-2021 Lab Drop off Ramila MorochoRafia Lorne [facility] Start: 12-12-2021 End: 12-12-2021 Patient encounter procedure Ramila BaileeRafia Pradhan [facility] Procedures Date Procedure Procedure Detail Performing Clinician Start: 04-14-2025 Arthrocentesis aspir &/inj major jt/bursa w/o us Harley Arciniega DO Work Phone: Start: 04-14-2025 Radiologic examinati on knee 3 views Harley Arciniega DO Work Phone: Start: 04-13-2025 End: 04-13-2025 [facility] intermediate estab pt 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, mild stage Clay Torres DO Work Phone: Comment on above: 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, mild stage (Primary Dx); Epiretinal membrane (ERM) of left eye; Dry eyes, bilateral; 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 edema (CMS-HCC); Blepharitis of upper and lower eyelids of both eyes, unspecified type Start: 04-06-2025 End: 04-06-2025 [facility] intermediate estab pt Blepharitis of upper and lower eyelids of both eyes, unspecified type Clay Torres DO Work Phone: Comment on above: Blepharitis of upper and lower eyelids of both eyes, unspecified type (Primary Dx); 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 edema (CMS-HCC); Dry eyes, bilateral; Epiretinal membrane (ERM) of left eye; 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, mild stage Start: 01-13-2025 Arthrocentesis aspir &/inj major jt/bursa w/o us Harley Arciniega DO Work Phone: Start: 01-13-2025 Radiologic examinati on knee 3 views Harley Arciniega DO Work Phone: Start: 12-29-2024 End: 12-29-2024 [facility] medical xm&eval comprhnsv estab pt 1/> 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, mild stage Clay Elke Torres DO Work Phone: Comment on above: Epiretinal membrane (ERM) of left eye (Primary Dx); 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, mild stage; Dry eyes, bilateral; 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 edema; Blepharitis of upper and lower eyelids of both eyes, unspecified type Start: 12-16-2024 Radiologic examinati on knee 3 views Harley Reyes Suze DO Work Phone: Start: 12-02-2024 [facility] BUN Harley Reyes Br own DO Work Phone: Start: 12-02-2024 [facility] CREATININE Harley Reyes Suze DO Work Phone: Start: 12-02-2024 [facility] EGFR Harley A Br own DO Work Phone: Start: 12-02-2024 [facility] LYTES Harley Reyes Br own DO Work Phone: Start: 12-01-2024 XR KNEE 1 OR 2 VIEWS LEFT Harley Arciniega DO Work Phone: Start: 12-01-2024 Total knee replacement Harley Suze Start: 11-18-2024 CT LOWER EXTREMITY W /O CONTRAST LEFT Harley Reyes Suze DO Work Phone: Start: 11-18-2024 UA WITH CULT RFLX Harley Reyes Suze DO Work Phone: Start: 09-29-2024 End: 09-29-2024 [facility] xm&eval intermediate estab pt 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 edema Clay Torres DO Work Phone: Comment on above: 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 edema (Primary Dx); Epiretinal membrane (ERM) of left eye; Dry eyes, bilateral; Blepharitis of upper and lower eyelids of both eyes, unspecified type; 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, mild stage (CMS/HCC) Start: 07-09-2024 End: 07-09-2024 [facility] xm&eval intermediate estab pt 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 edema Clay Torres DO Work Phone: Comment on above: 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 edema (Primary Dx); Epiretinal membrane (ERM) of left eye; Dry eyes, bilateral; Blepharitis of upper and lower eyelids of both eyes, unspecified type; 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, mild stage (CMS/HCC) Start: 07-06-2024 End: 07-06-2024 [facility]eval comprhnsv estab pt 1/> 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, mild stage (CMS/HCC) Clay Torres DO Work Phone: Comment on above: 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, mild stage (CMS/HCC) (Primary Dx); 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 edema; Epiretinal membrane (ERM) of left eye; Dry eyes, bilateral; Blepharitis of upper and lower eyelids of both eyes, unspecified type Start: 06-15-2024 Arthrocentesis aspir &/inj major jt/bursa w/o us Adriana Flores DO Work Phone: Start: 06-08-2024 Arthrocentesis aspir &/inj major jt/bursa w/o us Adriana Flores DO Work Phone: Start: 06-01-2024 Arthrocentesis aspir &/inj major jt/bursa w/o us Adriana Flores DO Work Phone: Start: 04-14-2024 Visual field xm uni/ bi w/interp extended exam Clay Torres DO Work Phone: Start: 04-14-2024 End: 04-14-2024 Ophth medical xm&eval intermediate estab pt 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 edema Clay Torres DO Work Phone: Comment on above: Dry eyes, bilateral (Primary Dx); 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 edema; Epiretinal membrane (ERM) of left eye; Glaucoma suspect of both eyes; Blepharitis of upper and lower eyelids of both eyes, unspecified type Start: 03-31-2024 Arthrocentesis aspir &/inj major jt/bursa w/o us Syl Villalba [employer]E WORKER Work Phone: Start: 02-02-2024 Mammography Syl matthew [employer] WORKER Work Phone: Start: 12-31-2023 [facility] Rosmery Guillermo BALL FRINGE MACHINE OPERATOR-TRIAL CONSULTANT Work Phone: Start: 2020 Cataract extraction and insertion of intraocular lens Ramila Pradhan Start: 03-21-2020 Cataract extraction and insertion of intraocular lens Ramila Chaparroe Cholecystectomy Ramila Pradhan Closed reduction of fracture of humerus with percutaneous fixation using bone pin Harley Arciniega Deliveries by tami ozuna (finding) Harley Arciniega Injection of scleros ing agent into vein of lower limb Harley Arciniega Comment on above: 2022 Open reduction of fr acture with internal fixation Harley Arciniega Procedure on knee Ramila Lorne Plan of Treatment Date Care Activity Detail Author Start: 12-12-2025 End: 12-12-2025 Patient encounter procedure 12/12/2025 9:00 AM EDT Office Visit [facility] [place] [facility] [address] [place] [address] Brown, Harley A, DO [address] [place] [address] [facility] [place] [facility] Start: 06-21-2025 End: 06-21-2025 Patient encounter procedure 06/21/2025 9:45 AM EST Office Visit [facility] [address] [place] [phone] Clay Torres, DO [address] [place] [address] [facility] Start: 06-13-2025 End: 06-13-2025 Patient encounter procedure 06/13/2025 11:00 AM EST Procedure Visit [facility] [address] [place] [phone] Ruthann Camp PA [address] [facility] [place] [address] [facility] Start: 04-14-2025 End: 04-14-2025 Patient encounter procedure 04/14/2025 10:30 AM EDT Office Visit [facility] [address] [place] [phone] Harley Arciniega, DO [address] [place] [address] [facility] Start: 04-14-2025 End: 04-14-2025 Patient encounter procedure 04/14/2025 8:30 AM EDT Office Visit [facility] [place] [facility] [address] [place] [phone] Harley Arciniega, DO [address] [place] [address] [facility] [place] [facility] Start: 04-13-2025 End: 04-13-2025 Patient encounter procedure 04/13/2025 1:45 PM EDT Office Visit [facility] [address] [place] [phone] Clay Torres, DO [address] [place] [address] Arrived [facility] Comment on above: Arrived Start: 04-06-2025 End: 04-06-2025 Patient encounter procedure [facility] Comment on above: Arrived Start: 03-28-2025 Influenza vaccination Influenza Vacc ine (#1) [facility] Start: 02-01-2025 Screening for malign ant neoplasm of breast Mammogram [facility] Start: 01-13-2025 End: 01-13-2025 Patient encounter procedure 01/13/2025 10:45 AM EDT Office Visit [facility] [address] [place] [phone] Harley Arciniega DO [address] [place] [address] [facility] Start: 12-29-2024 End: 12-29-2024 Patient encounter procedure [facility] Comment on above: Arrived Start: 12-24-2024 End: 12-24-2024 Patient encounter procedure 12/24/2024 10:15 AM EDT Office Visit [facility] [address] [place] [phone] Clay Torres, DO [address] [place] [address] [facility] Start: 12-22-2024 End: 12-22-2024 Clinical Support [facility] Comment on above: Arrived Start: 12-16-2024 End: 12-16-2024 Patient encounter procedure 12/16/2024 9:45 AM EDT Office Visit [facility] [address] [place] [phone] Harley Arciniega, DO [address] [place], [place] [id number] [facility] Start: 12-08-2024 End: 12-08-2024 Patient encounter procedure 12/08/2024 11:00 AM EDT Office Visit [facility] [address] [place] [phone] Clay Torres, DO [address] [place] [address] [facility] Start: 12-04-2024 Adult BMI Screening Adult BMI Screen ing [facility] Start: 12-04-2024 Tobacco Screening Tobacco Screening [facility] Start: 11-29-2024 End: 11-29-2024 ambulatory [facility] Comment on above: Primary osteoarthrit is of left knee Start: 11-18-2024 End: 11-18-2025 Urinalysis complete panel - Urine Urinalysis with reflex microscopic Lab Routine Pre-op testing Expected: 11/18/2024 (Approximate), Expires: 11/18/2025 [facility] Work Phone: Comment on above: Expected: 11/18/2024 (Approximate), Expires: 11/18/2025 Start: 11-18-2024 End: 11-18-2024 Patient encounter procedure [facility] Comment on above: Arrived Start: 10-05-2024 End: 10-05-2024 Patient encounter procedure 10/05/2024 10:00 AM EDT Office Visit [facility] [address] [place] [address] Harley Arciniega, DO [address] [facility] [place], [place] [id number] [facility] Start: 09-29-2024 End: 09-29-2024 Patient encounter procedure [facility] Comment on above: Arrived Start: 07-09-2024 End: 07-09-2024 Patient encounter procedure [facility] Comment on above: Arrived Start: 07-06-2024 End: 07-06-2024 Patient encounter procedure 07/06/2024 8:45 AM EST Office Visit [facility] [address] [place] [phone] Clay Torres, [address] [place] [address] [facility] Start: 07-05-2024 End: 07-05-2024 Patient encounter procedure 07/05/2024 10:00 AM EST Office Visit [facility] [address] [place] [address] Syl Villalba NP [address] [place] [address] Arrived [facility] Comment on above: Arrived Start: 06-15-2024 End: 06-15-2024 Patient encounter procedure [facility] Comment on above: Arthritis of right k nee Start: 06-08-2024 End: 06-08-2024 Patient encounter procedure 06/08/2024 10:00 AM EST Office Visit [facility] [address] [place] [address] Adriana lFores DO [address] [place] [address] [facility] Start: 06-01-2024 End: 06-01-2024 Patient encounter procedure [facility] Comment on above: Chronic pain of righ t knee Start: 04-14-2024 End: 04-14-2024 Patient encounter procedure 04/14/2024 8:30 AM EDT Office Visit [facility] [address] [place] [phone] Zahler, Clay D, DO [address] [place] [address] [facility] Start: 04-13-2024 End: 04-13-2024 Patient encounter procedure 04/13/2024 1:00 PM EDT Office Visit [facility] [address] [place] [address] Adriana Flores DO [address] [place] [address] Arrived [facility] Comment on above: Arrived Start: 03-31-2024 End: 03-31-2024 Patient encounter procedure 03/31/2024 8:30 AM EDT Office Visit [facility] [address] [place] [address] Syl Villalba, [employer] WORK[employer] [address] [place] [address] Chronic pain of right knee (Primary Dx); Arthritis of right knee [facility] Comment on above: Chronic pain of righ t knee (Primary Dx); Arthritis of right knee Start: 03-28-2024 Influenza vaccination [facility] Start: 12-31-2023 End: 12-31-2023 Patient encounter procedure 12/31/2023 8:00 AM EDT [facility] [address] [place] [phone] Mitch Jett DO [address] [place], [place] [phone] [facility] Start: 11-11-2023 Patient referral [facility] Work Phone: Start: 03-28-2023 COVID-19 Vaccine ( season) COVID-19 Vaccine ( season) [facility] Start: 2014 Fall Risk Screening Fall Risk Screen ing [facility] Start: 1968 DTaP,Tdap and Td Vaccines (1 - Tdap) DTaP,Tdap and Td Vaccines (1 - Tdap) [facility] Start: 1967 Adult BMI Follow Up Plan Adult BMI Follow Up Plan [facility] Start: 1961 Depression Screening Depression Scre ening [facility] Start: 1949 Medicare Annual Well ness Visit Medicare Annual Wellness Visit [facility] Start: 1949 Screening for malign ant neoplasm of colon [facility] Start: 1949 Tobacco Counseling Tobacco Counselin g [facility] End: 12-04-2024 Colonoscopy Colonoscopy GI Routine Rectal bleeding 1 Occurrences starting 12/05/2023 until 12/04/2024 [facility] Work Phone: Comment on above: 1 Occurrences starti ng 12/05/2023 until 12/04/2024 Patient referral [facility] Work Phone: US Lower extremity v ein - left [facility] Immunizations Immunization Date Immunization Notes Care Provider [facility] 05-29-2024 influenza virus vaccine, unspecified formulation Clay Torres DO Work Phone: [facility] 05-29-2023 zoster vaccine recombinant Ramila Lorne [facility] 04-22-2023 influenza virus vaccine, unspecified formulation [facility] 04-22-2023 influenza, high dose seasonal, preservative-free Alden Wheeler Other [email or web address] Other 12-30-2022 zoster vaccine recombinant Alden Wheeler Other [facility] 05-27-2022 influenza virus vaccine, split virus (incl. purified surface antigen) Alden Wheeler Other [email or web address] Other 05-27-2022 influenza virus vaccine, unspecified formulation [facility] 06-30-2021 SARS-CoV-2 (COVID-19 ) Ad26 vaccine, recombinant Ramila Pradhan [facility] Comment on above: Result Comment: 2021: [id number] 05-25-2021 influenza virus vaccine, split virus (incl. purified surface antigen) Alden Wheeler Other [email or web address] Other 05-25-2021 influenza virus vaccine, unspecified formulation Ramila Lue [facility] 09-29-2020 COVID-19 vaccine, vector-nr, rS-Ad26, PF, 0.5 mL; Translations: [Susana COVID-19 Vaccine] Ramila Luherlinda [facility] Comment on above: Reason for Medicatio n: Prophylaxis 05-08-2020 influenza virus vaccine, split virus (incl. purified surface antigen) Alden Wheeler Other [facility] [employer] Other 05-08-2020 influenza virus vaccine, unspecified formulation Ramila Luherlinda [facility] 05-18-2019 influenza virus vaccine, split virus (incl. purified surface antigen) Alden Wheeler Other [email or web address] Other 05-18-2019 influenza virus vaccine, unspecified formulation [facility] 05-06-2018 influenza virus vaccine, split virus (incl. purified surface antigen) Alden Wheeler Other [place] [employer] Other 05-06-2018 influenza virus vaccine, unspecified formulation Ramila Lue [facility] 04-24-2017 influenza virus vaccine, split virus (incl. purified surface antigen) Alden Wheeler Other [email or web address] Other 04-24-2017 influenza virus vaccine, unspecified formulation Ramila Lue [facility] 04-01-2017 influenza virus vaccine, unspecified formulation Ramila Lue [facility] 05-28-2016 pneumococcal polysaccharide vaccine, 23 valent Ramila Lue [facility] 04-22-2016 influenza virus vaccine, split virus (incl. purified surface antigen) Alden Wheeler Other [email or web address] Other 04-22-2016 influenza virus vaccine, unspecified formulation Ramila Lue [facility] 04-22-2016 pneumococcal conjuga te vaccine, 13 valent Ramila Lue [facility] 04-28-2015 influenza virus vaccine, split virus (incl. purified surface antigen) Alden Wheeler Other [email or web address] Other 04-28-2015 influenza virus vaccine, unspecified formulation [facility] 04-19-2015 pneumococcal conjuga te vaccine, 13 valent Alden Wheeler Other [facility] Payers Date Payer Category Payer Unknown [id number] 2.16.8 [id number] 2020 Private Health Insurance [id number] 2020 Unknown [id number] 2020 Unknown [id number] 2014 Medicare [id number]. [id number] 1959 Medicare [id number] 2.1 6.840.1.099945.19 1959 Self-pay [id number] 1959 Unknown [id number] 1949 Unknown [id number] 2.16.84 0.1.506416.3.579.2.593 1949 Unknown [id number] 2.16.84 0.1.192863.3.579.2.593 1949 Unknown [id number] 2.16.84 0.1.906534.3.579.2.593 1949 Unknown [id number] 2.16.84 0.1.118083.3.579.2.593 1949 Unknown [id number] 2.16.84 0.1.571202.3.579.2.593 1949 Unknown [id number] 2.16.84 0.1.711774.3.579.2.593 1949 Unknown [id number] 2.16.84 0.1.155783.3.579.2.593 1949 Unknown [id number] 2.16.84 0.1.465382.3.579.2.593 1949 Unknown [id number] 2.16.84 0.1.790574.3.579.2.593 1949 Unknown [id number] 2.16.84 0.1.736232.3.579.2.593 1949 Unknown [id number] 2.16.8 40.1.677187.3.579.2.1286 1949 Unknown [id number] 2.16.8 40.1.921419.3.579.2.727 1949 Unknown [id number] 2.16.8 40.1.765576.3.579.2.727 1949 Unknown [id number] 2.16.8 40.1.943215.3.579.2.727 -194 Unknown [id number] 2.16.8 40.1.279202.3.579.2.727 194 Unknown [id number] 2.16.8 40.1.754319.3.579.2.727 194 Unknown [id number] 2.16.8 40.1.581934.3.579.2.727 -194 Unknown [id number] 2.16.8 40.1.737110.3.579.2.727 194 Unknown [id number] 2.16.8 40.1.726606.3.579.2.1259 -194 Unknown [id number] 2.16.8 40.1.208348.3.579.2.1259 1949 Unknown [id number] 2.16.8 40.1.406756.3.579.2.1259 194 Unknown [id number] 2.16.8 40.1.711199.3.579.2.1259 -194 Unknown [id number] 2.16.8 40.1.027767.3.579.2.1259 1949 Unknown [id number] 2.16.8 40.1.978856.3.579.2.1259 194 Unknown [id number] 2.16.8 40.1.309896.3.579.2.1259 194 Unknown [id number] 2.16.84 0.1.206538.3.579.2.1259 -194 Unknown [id number] 2.16.84 0.1.456657.3.579.2.1259 194 Unknown [id number] 2.16.84 0.1.246970.3.579.2.1259 -194 Unknown [id number] 2.16.84 0.1.182345.3.579.2.1259 -194 Unknown [id number] 2.16.84 0.1.615383.3.579.2.1259 -194 Unknown [id number] 2.16.84 0.1.152156.3.579.2.1259 194 Unknown [id number] 2.16.84 0.1.332676.3.579.2.1259 -194 Unknown [id number] 2.16.84 0.1.753647.3.579.2.1259 - Unknown [id number] 2.16.84 0.1.406879.3.579.2.1259 -194 Unknown [id number] 2.16.84 0.1.678619.3.579.2.1259 -194 Unknown [id number] 2.16.84 0.1.087808.3.579.2.1259 1949 Unknown [id number] 2.16.84 0.1.048611.3.579.2.1259 1949 Unknown [id number] 2.16.84 0.1.966052.3.579.2.1259 1949 Unknown [id number] 2.16.84 0.1.992375.3.579.2.1259 1949 Unknown [id number] 2.16.84 0.1.215815.3.579.2.1259 1949 Unknown [id number] 2.16.8 40.1.073729.3.579.2.727 1949 Unknown [id number] 2.16.8 40.1.948734.3.579.2.727 1949 Unknown [id number] 2.16.8 40.1.278170.3.579.2.727 Unknown [id number] 2.16.84 0.1.660299.3.579.2.593 Unknown [id number] 2.16.84 0.1.072737.3.579.2.593 Social History Date Type Detail Facility Start: 12-12-2021 End: 11-18-2024 Tobacco smoking status Ex-smoker (finding) [facility] Start: 06-06-2023 End: 04-14-2025 Sex Assigned At Female [facility] Tobacco smoking status Never [facility] Start: 1950 Sex Assigned At Female [facility] [facility] End: 07-28-2006 History of tobacco use Current smoker [facility] End: 07-28-2006 History of tobacco use Cigarette Smoker [facility] Start: 02-10-2023 End: 11-18-2024 Tobacco use and exposure Smokeless tobacco non-user [facility] Start: 04-14-2024 End: 04-14-2025 Alcoholic beverage intake Current drinker of alcohol (finding) [facility] Start: 06-06-2023 End: 04-14-2025 History of Social function [facility] How often to you hav e a drink containing alcohol? 2-4 times a month [facility] How many standard dr inks containing alcohol do you have on a typical day? 3 or 4 [facility] How often do you hav e 6 or more drinks on 1 occasion? Never [facility] Start: 02-10-2023 Tobacco Comment Last smoked: 20 year s [facility] Start: 01-29-2023 Alcohol Comment 3-6 [facility] Start: 1950 Sex assigned at Not on file [facility] Work Phone: Start: 02-28-2020 End: 06-17-2024 Sex Female (finding) [facility] Start: 12-05-2023 Tobacco use and exposure User of smokeless tobacco [facility] Start: 12-05-2023 Alcohol Comment socially [facility] Start: 11-18-2024 Alcohol Comment Occasional win e and alcohol [facility] Sexual Orientation [facility] Medical Equipment Procedure Code Equipment Code Equipment Origin al Text Equipment Identifier Dates [id number] FDA Start: 03-21-2020 [id number] FDA Start: 2020 KNEE TOTAL ROBOT ARTHROPLASTY Suze DO, Harley A 12/01/24 Unknown Knee L FDA Start: 12-01-2024 KNEE TOTAL ROBOT ARTHROPLASTY Brown DO, Harley A 12/01/24 Unknown Knee L FDA Start: 12-01-2024 KNEE TOTAL ROBOT ARTHROPLASTY Brown DO, Harley A 12/01/24 Unknown Knee L FDA Start: 12-01-2024 KNEE TOTAL ROBOT ARTHROPLASTY Brown DO, Harley A 12/01/24 Unknown Knee L FDA Start: 12-01-2024 KNEE TOTAL ROBOT ARTHROPLASTY Suze DO, Harley A 12/01/24 Unknown Knee L FDA Start: 12-01-2024 KNEE TOTAL ROBOT ARTHROPLASTY Suze DO, Harley A 12/01/24 Unknown Knee L FDA Start: 12-01-2024 KNEE TOTAL ROBOT ARTHROPLASTY Suze DO, Harley A 12/01/24 Unknown Knee L FDA Start: 12-01-2024 KNEE TOTAL ROBOT ARTHROPLASTY Suze DO, Harley A 12/01/24 Unknown Knee L FDA Start: 12-01-2024 Functional Status Date Assessment Result Facility 11-18-2024 Functional Status No [facility] 05-12-2024 Functional Status N/A [facility] 05-07-2023 Functional Status N/A [facility] 05-01-2022 Functional Status N/A [facility] Clinical Notes 12-12-2021 to 04-14-2025 Tracie Pozo, ARRT - 04/14/2025 8:30 AM Lucia Arciniega DO - 04/14/2025 8:30 AM Yoly Torres DO - 04/13/2025 1:45 PM Yoly Torres DO - 04/06/2025 9:15 AM EDT Note Date & Type Note Facility 04-14-2025 History of Present illness Narrative Associated Order(s): L Inj/Asp: R knee Post-Procedure Diagnose(s): Chronic pain of right knee L Inj/Asp: R knee on 04/14/2025 8:46 AM Indications: pain Details: 22 G needle, lateral approach Medications: 30 mg cross-linked hyaluronate 30 MG/3ML Consent was given by the patient. Images from the original note were not included. @SPENCERTE@ Donna Amy Delores is a 75 y.o. female who presents for Post-op of the Left Knee (L RA TKA 12/01/24 ) HPI: History of Present Illness The patient is a 75-year-old female who presents for evaluation of her knee condition, 19 weeks status post left total knee arthroplasty, with the surgery performed on 12/01/2024. She received an injection of Zilretta in her right knee on 01/13/2025. She is doing well with the left knee. She is requesting another injection into the right knee prior to departure for [facility] this weekend. Leaving for [place] in early June. SUBJECTIVE: MEDICATIONS: Current Outpatient Medications Medication Instructions Acetaminophen (TYLENOL ARTHRITIS PAIN PO) ASPIRIN 81 MG chewable tablet As needed calcium 200 MG tablet celecoxib (CELEBREX) 100 mg, 2 times daily cholecalciferol (Vitamin D-3) 125 MCG (5000 UT) capsule Docusate Sodium (DSS) 100 MG capsule Every 24 hours Dorzolamide HCl-Timolol Mal PF 2-0.5 % solution 1 drop, Ophthalmic, 2 times daily dorzolamide-timolol (Cosopt) 2-0.5 % ophthalmic solution 1 drop, Both Eyes, 2 times daily Krill Oil 350 MG capsule Lumigan 0.01 % ophthalmic solution 1 drop, Both Eyes, Nightly Multiple Vitamin (MULTI VITAMIN DAILY PO) Myrbetriq 25 mg, Daily Potassium 99 MG tablet Every 24 hours prednisoLONE acetate (Pred-Forte) 1 % ophthalmic suspension tiZANidine (Zanaflex) 2 MG tablet ALLERGIES: Allergies Allergen Reactions Latanoprost Itching Meloxicam GI bleeding Latex Rash SURGICAL HISTORY: Past Surgical History: Procedure Laterality Date ANKLE FRACTURE SURGERY 2003 CATARACT EXTRACTION, BILATERAL 2019 SECTION, LOW TRANSVERSE x2 CHOLECYSTECTOMY 2014 CHOLESTEATOMA EXCISION 2014 DENTAL SURGERY EYE SURGERY Left 2023 Epi membrane HARDWARE REMOVAL FOOT / ANKLE Right 11/13/2015 Partial Hardware removal rt ankle KNEE SURGERY 2009 Arthroscopy Knee KNEE SURGERY 2010 knee arthroscopy LASIK ORIF ANKLE FRACTURE Right 2003 ME GUM GRAFT 2 peridontal sx TOTAL KNEE ARTHROPLASTY Left 12/01/2024 [facility] WRIST FRACTURE SURGERY Right FAMILY HISTORY: Family History Problem Relation Name Age of Onset Lung cancer Mother Heart disease Mother Heart disease Father SOCIAL HISTORY: Social History Tobacco Use Smoking status: Former Current packs/day: 0.00 Types: Cigarettes Smokeless tobacco: Never Tobacco comments: Last smoked: 20 years Vaping Use Vaping status: Never Used Substance Use Topics Alcohol use: Yes Comment: Occasional wine and alcohol Drug use: Never Depression: Not on file REVIEW OF SYMPTOMS: Review of Systems The review of systems, history and current medications list are all reviewed today. OBJECTIVE: Visit Vitals Ht 5' 4 Wt 201 lb 9.6 oz BMI 34.60 kg/m Smoking Status Former BSA 2.03 m Physical Exam Alert and oriented, no acute distress. Mood and affect are appropriate. Ambulating independently. Gait is nonantalgic. Left knee: incision benign. Very slight effusion. No erythema. ROM 0-115. No varus or valgus instability. 5/5 strength Right knee: no effusion. Tender medial joint line. No varus or valgus instability. Negative anterior/posterior drawer. Ortho Exam Results Three views, bilateral PA weight-bearing/sunrise/lateral left knee, taken today and saved to the permanent medical record are reviewed. Prosthesis is unchanged in position and alignment. No signs of prosthetic wear or loosening. No periprosthetic fractures. Complete loss medial joint space right knee, severe end stage arthritis. Severe PF arthritis. ASSESSMENT AND PLAN: I reviewed the history, physical exam, diagnostic studies, and diagnosis with the patient. Assessment & Plan 1. Post-operative status following left total knee arthroplasty: Currently 19 weeks post-surgery. Swelling in the left knee is a normal part of the healing process and should gradually subside over time. A follow-up appointment has been scheduled for 11/2025, during which an x-ray of the left knee will be performed. If assistance is required before departure in 06/2025 or upon return in 09/2025, contact the office. 2. Advanced DJD right knee After informed consent and using sterile technique, the superolateral aspect of the right knee(s) was prepped with alcohol and Betadine. The skin was anesthetized with ethyl chloride and the knee was then injected with 3 mL of Gel-One with a 22-gauge 1-1/2 inch needle. The patient tolerated this well. A Band-Aid was applied. The patient was instructed to ice the knee and to watch for any signs of infection including redness, increased pain in the knee, drainage from the injection site, fever, chills, etc. The patient was instructed to call the office if he/she experiences any adverse reaction from the injection. Follow-up: 11/2025 with left knee xrays. A total of 30 to 39 minutes was spent on this patient encounter which included chart review, check in, nurse triage, history taking, physical examination, diagnostic study review, patient counseling and discussion, entering information into the patient's medical record, and coordinating patient care. Diagnoses and all orders for this visit: Status post total left knee replacement - XR knee 3 views left Chronic pain of right knee - L Inj/Asp: R knee Harley Arciniega D.O. Attestation This note was created using voice recognition through [employer]. documented in this encounter [facility] 04-13-2025 History of Present illness Narrative Images from the original note were not included. Subjective Patient ID: Donna Estrella is a 75 y.o. female. Chief Complaint Glaucoma HPI Glaucoma In both eyes. Side effects of treatment include none. Treatment compliance is always. 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 Using Iyuzeh in both eyes (OU) at bedtime and dorz/dick in left eye (OS) BID, pred acetate in both eyes (OU) QID. Pt is wondering if there are any side effects to the eye drops. Last edited by YOLI Davis on 04/13/2025 1:44 PM. Current Outpatient Medications (Ophthalmic Agents) Medication Sig Dispense Refill Dorzolamide HCl-Timolol Mal PF 2-0.5 % solution Administer 1 drop into affected eye(s) in the morning and 1 drop before bedtime. 60 each 4 dorzolamide-timolol (Cosopt) 2-0.5 % ophthalmic solution Administer 1 drop into both eyes in the morning and 1 drop before bedtime. 10 mL 5 Lumigan 0.01 % ophthalmic solution INSTILL 1 DROP INTO BOTH EYES AT BEDTIME 7.5 mL 3 prednisoLONE acetate (Pred-Forte) 1 % ophthalmic suspension No current facility-administered medications for this visit. (Ophthalmic Agents) Current Outpatient Medications (Other) Medication Sig Dispense Refill Acetaminophen (TYLENOL ARTHRITIS PAIN PO) ASPIRIN 81 MG chewable tablet if needed calcium 200 MG tablet celecoxib (CeleBREX) 100 MG capsule Take 100 mg by mouth in the morning and 100 mg before bedtime. (Patient not taking: Reported on 01/13/2025) cholecalciferol (Vitamin D-3) 125 MCG (5000 UT) capsule Docusate Sodium (DSS) 100 MG capsule 1 (one) time each day at the same time gabapentin (Neurontin) 300 MG capsule Take 1 capsule (300 mg) by mouth in the morning and 1 capsule (300 mg) in the evening and 1 capsule (300 mg) before bedtime. Do all this for 14 days. 42 capsule 0 Krill Oil 350 MG capsule Multiple Vitamin (MULTI VITAMIN DAILY PO) Myrbetriq 25 MG 24 hr tablet Take 25 mg by mouth Daily Potassium 99 MG tablet 1 (one) time each day at the same time tiZANidine (Zanaflex) 2 MG tablet No current facility-administered medications for this visit. (Other) Past Medical History: Diagnosis Date Arthritis Not sure Blepharitis BRVO (branch retinal vein occlusion) ([facility]) Cataract Dry eyes DVT (deep venous thrombosis) ([facility]) 03/10/2024 LT leg Epiretinal membrane (ERM) of left eye Glaucoma Glaucoma suspect Osteopenia PVD (posterior vitreous detachment) Thalassemia Allergies Allergen Reactions Latanoprost Itching Meloxicam GI bleeding Latex Rash Review of Systems Constitutional: Negative. HENT: Negative. Eyes: Negative. Respiratory: Negative. Cardiovascular: Negative. Gastrointestinal: Negative. Genitourinary: Negative. Musculoskeletal: Negative. Skin: Negative. Neurological: Negative. Psychiatric/Behavioral: Negative. Hematological: Negative. Endocrine: Negative. Allergic/Immunologic: Negative. Objective Base Eye Exam Visual Acuity (Snellen - Linear) Right Left Dist cc 20/40 20/80 Correction: Glasses Tonometry (Applanation, 1:58 PM) Right Left Pressure 34 34 Pupils Pupils Right PERRL Left PERRL Visual Anderson Left Right Full Full Extraocular Movement Right Left Full Full Neuro/Psych Oriented x3: Yes Slit Lamp and Fundus Exam External Exam Right Left External Normal Normal Slit Lamp Exam Right Left Lids/Lashes Blepharitis, Dermatochalasis - upper lid, 1+ Ptosis Blepharitis, Dermatochalasis - upper lid, 1+ Ptosis Conjunctiva/Sclera White and quiet White and quiet Cornea Decreased tear film Decreased tear film, 2+ diffuse SPK Anterior Chamber Deep and quiet Deep and quiet Iris Round and reactive Round and reactive Lens Posterior chamber intraocular lens, Open posterior capsule Posterior chamber intraocular lens, Open posterior capsule Anterior Vitreous Normal Normal Assessment/Plan 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 edema - Branch Retinal Vein Occlusion noted on examination. A strong association with systemic hypertension explained. Maintain regular follow up visits with PCP. Macular Edema 2/2 to branch retinal vein occlusion (BRVO) also noted. R/B/A/E provided for antiVEGF therpay today. Counseled patient on risk and symptoms of non-fatal vascular accidents such as cerebral stroke. Neovascular glaucoma (NVG)/proliferative complications risk discussed. Questions and concerns addressed. Instructed to call with any discomfort, loss of vision, discharge, questions or concerns. - Pt sees Dr. Velasquez, R.A.C. - Using Pred Acetate both eyes (OU) QID. Epiretinal membrane (ERM) of left eye - The condition and pathophysiology were described to the patient. An epiretinal membrane (ERM) has the potential to influence quality of vision including acuity as well as metamorphopsia. Advised observation at this time. Dry eyes, bilateral - Dry Eyes OU -- Environmental changes to minimize dryness and exposure and the use of artificial tears were recommended. Blepharitis of upper and lower eyelids of both eyes, unspecified type - Blepharitis, posterior type OU - The patient exhibits inspissated meibomian glands. Warm compresses, lid massage and lid scrubs were recommended. Steroid Response Glaucoma both eyes (OU): - intraocular pressure (IOP) continues to go up and down between seeing retina and myself. She is taking Pred Acetate both eyes (OU) QID and this is likely the cause of her elevated intraocular pressure (IOP). It has been difficulty expressing the need for ocular surface treatment so that topical glaucoma drops (gtts) can be executed to better manage the elevated intraocular pressure (IOP) found on exam. - Cont Lumigan (attempted to Rx Zioptan however kicked back) both eyes (OU) at bedtime. Pt cannot tolerate generic Latanoprost. - Start trial of Iyuzeh both eyes (OU) at bedtime for better comfort and application with amount of preservatives she is currently receiving. - Cont Dorz/Dick left eye (OS) BID and Iyuzeh both eyes (OU) at bedtime. (Had been seen [place] winter 2024 with intraocular pressure (IOP) of 9 both eyes (OU). - R/B/A/E provided for SLT. documented in this encounter [facility] 04-06-2025 History of Present illness Narrative Images from the original note were not included. Assessment/Plan Diagnoses and all orders for this visit: 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 edema - Branch Retinal Vein Occlusion noted on examination. A strong association with systemic hypertension explained. Maintain regular follow up visits with PCP. Macular Edema 2/2 to branch retinal vein occlusion (BRVO) also noted. R/B/A/E provided for antiVEGF therpay today. Counseled patient on risk and symptoms of non-fatal vascular accidents such as cerebral stroke. Neovascular glaucoma (NVG)/proliferative complications risk discussed. Questions and concerns addressed. Instructed to call with any discomfort, loss of vision, discharge, questions or concerns. - Pt sees Dr. Velasquez, R.A.C. - Using Pred Acetate both eyes (OU) QID. Epiretinal membrane (ERM) of left eye - The condition and pathophysiology were described to the patient. An epiretinal membrane (ERM) has the potential to influence quality of vision including acuity as well as metamorphopsia. Advised observation at this time. Dry eyes, bilateral - Dry Eyes OU -- Environmental changes to minimize dryness and exposure and the use of artificial tears were recommended. Blepharitis of upper and lower eyelids of both eyes, unspecified type - Blepharitis, posterior type OU - The patient exhibits inspissated meibomian glands. Warm compresses, lid massage and lid scrubs were recommended. Steroid Response Glaucoma both eyes (OU): - intraocular pressure (IOP) continues to go up and down between seeing retina and myself. She is taking Pred Acetate both eyes (OU) QID and this is likely the cause of her elevated intraocular pressure (IOP). It has been difficulty expressing the need for ocular surface treatment so that topical glaucoma drops (gtts) can be executed to better manage the elevated intraocular pressure (IOP) found on exam. - Cont Lumigan (attempted to Rx Zioptan however kicked back) both eyes (OU) at bedtime. Pt cannot tolerate generic Latanoprost. - Start trial of Iyuzeh both eyes (OU) at bedtime for better comfort and application with amount of preservatives she is currently receiving. - Cont Dorz/Dick left eye (OS) BID. (Had been seen [place] winter 2024 with intraocular pressure (IOP) of 9 both eyes (OU)) - Pt has had steroid injections for bad knees. Due to see ortho next week. documented in this encounter [facility] 02-25-2025 Hospital Discharge instructions Patient Education 02/25/2025 15:56:46 Urinary Incontinence Urinary Incontinence Urinary incontinence refers to a condition in which a person is unable to control where and when to pass urine. A person with this condition will urinate involuntarily. This means that the person urinates when he or she does not mean to. What are the causes? This condition may be caused by: Medicines. Infections. Constipation. Overactive bladder muscles. Weak bladder muscles. Weak pelvic floor muscles. These muscles provide support for the bladder, intestine, and, in women, the uterus. Enlarged prostate in men. The prostate is a gland near the bladder. When it gets too big, it can pinch the urethra. With the urethra blocked, the bladder can weaken and lose the ability to empty properly. Surgery. Emotional factors, such as anxiety, stress, or post-traumatic stress disorder (PTSD). Spinal cord injury, nerve injury, or other neurological conditions. Pelvic organ prolapse. This happens in women when organs move out of place and into the vagina. This movement can prevent the bladder and urethra from working properly. What increases the risk? The following factors may make you more likely to develop this condition: Age. The older you are, the higher the risk. Obesity. Being physically inactive. and childbirth. Menopause. Diseases that affect the nerves or spinal cord. Long-term, or chronic, coughing. This can increase pressure on the bladder and pelvic floor muscles. What are the signs or symptoms? Symptoms may vary depending on the type of urinary incontinence you have. They include: A sudden urge to urinate, and passing urine involuntarily before you can get to a bathroom (urge incontinence). Suddenly passing urine when doing activities that force urine to pass, such as coughing, laughing, exercising, or sneezing (stress incontinence). Needing to urinate often but urinating only a small amount, or constantly dribbling urine (overflow incontinence). Urinating because you cannot get to the bathroom in time due to a physical disability, such as arthritis or injury, or due to a communication or thinking problem, such as Alzheimer's disease (functional incontinence). How is this diagnosed? This condition may be diagnosed based on: Your medical history. A physical exam. Tests, such as: ?Urine tests. ?X-rays of your kidney and bladder. ?Ultrasound. ?CT scan. ?Cystoscopy. In this procedure, a health care provider inserts a tube with a light and camera (cystoscope) through the urethra and into the bladder to check for problems. ?Urodynamic testing. These tests assess how well the bladder, urethra, and sphincter can store and release urine. There are different types of urodynamic tests, and they vary depending on what the test is measuring. To help diagnose your condition, your health care provider may recommend that you keep a log of when you urinate and how much you urinate. How is this treated? Treatment for this condition depends on the type of incontinence that you have and its cause. Treatment may include: Lifestyle changes, such as: ?Quitting smoking. ?Maintaining a healthy weight. ?Staying active. Try to get 150 minutes of moderate-intensity exercise every week. Ask your health care provider which activities are safe for you. ?Eating a healthy diet. ?Avoid high-fat foods, like fried foods. ?Avoid refined carbohydrates like white bread and white rice. ?Limit how much alcohol and caffeine you drink. ?Increase your fiber intake. Healthy sources of fiber include beans, whole grains, and fresh fruits and vegetables. Behavioral changes, such as: ?Pelvic floor muscle exercises. ?Bladder training, such as lengthening the amount of time between bathroom breaks, or using the bathroom at regular intervals. ?Using techniques to suppress bladder urges. This can include distraction techniques or controlled breathing exercises. Medicines, such as: ?Medicines to relax the bladder muscles and prevent bladder spasms. ?Medicines to help slow or prevent the growth of a man's prostate. ?Botox injections. These can help relax the bladder muscles. Treatments, such as: ?Using pulses of electricity to help change bladder reflexes (electrical nerve stimulation). ?For women, using a medical writer to prevent urine leaks. This is a small, tampon-like, disposable device that is inserted into the urethra. ?Injecting collagen or carbon beads (bulking agents) into the urinary sphincter. These can help thicken tissue and close the bladder opening. ?Surgery. Follow these instructions at home: Lifestyle Limit alcohol and caffeine. These can fill your bladder quickly and irritate it. Keep yourself clean to help prevent odors and skin damage. Ask your health care provider about special skin creams and cleansers that can protect the skin from urine. Consider wearing pads or adult diapers. Make sure to change them regularly, and always change them right after experiencing incontinence. General instructions Take [id number] and prescription medicines only as told by your health care provider. Use the bathroom about every 3 4 hours, even if you do not feel the need to urinate. Try to empty your bladder completely every time. After urinating, wait a minute. Then try to urinate again. Make sure you are in a relaxed position while urinating. If your incontinence is caused by nerve problems, keep a log of the medicines you take and the times you go to the bathroom. Keep all follow-up visits. This is important. Where to find more information National [place] [employer] and [employer]estive and Kidney Diseases: www.niddk.nih.gov [employer]: www.urologyhealth.org Contact a health care provider if: You have pain that gets worse. Your incontinence gets worse. Get help right away if: You have a fever or chills. You are unable to urinate. You have redness in your groin area or down your legs. Summary Urinary incontinence refers to a condition in which a person is unable to control where and when to pass urine. This condition may be caused by medicines, infection, weak bladder muscles, weak pelvic floor muscles, enlargement of the prostate (in men), or surgery. Factors such as older age, obesity, and childbirth, menopause, neurological diseases, and chronic coughing may increase your risk for developing this condition. Types of urinary incontinence include urge incontinence, stress incontinence, overflow incontinence, and functional incontinence. This condition is usually treated first with lifestyle and behavioral changes, such as quitting smoking, eating a healthier diet, and doing regular pelvic floor exercises. Other treatment options include medicines, bulking agents, medical devices, electrical nerve stimulation, or surgery. This information is not intended to replace advice given to you by your health care provider. Make sure you discuss any questions you have with your health care provider. Document Revised: 02/16/2021 Document Reviewed: 02/16/2021 [employer] Patient Education 2023 [employer]. 02/25/2025 15:56:44 Overactive Bladder, Adult Overactive Bladder, Adult Overactive bladder is a condition in which a person has a sudden and frequent need to urinate. A person might also leak urine if he or she cannot get to the bathroom fast enough (urinary incontinence). Sometimes, symptoms can interfere with work or social activities. What are the causes? Overactive bladder is associated with poor nerve signals between your bladder and your brain. Your bladder may get the signal to empty before it is full. You may also have very sensitive muscles that make your bladder squeeze too soon. This condition may also be caused by other factors, such as: Medical conditions: ?Urinary tract infection. ?Infection of nearby tissues. ?Prostate enlargement. ?Bladder stones, inflammation, or tumors. ?Diabetes. ?Muscle or nerve weakness, especially from these conditions: ?A spinal cord injury. ?Stroke. ?Multiple sclerosis. ?Parkinson's disease. Other causes: ?Surgery on the uterus or urethra. ?Drinking too much caffeine or alcohol. ?Certain medicines, especially those that eliminate extra fluid in the body (diuretics). ?Constipation. What increases the risk? You may be at greater risk for overactive bladder if you: Are an older adult. Smoke. Are going through menopause. Have prostate problems. Have a neurological disease, such as stroke, dementia, Parkinson's disease, or multiple sclerosis (MS). Eat or drink alcohol, spicy food, caffeine, and other things that irritate the bladder. Are overweight or obese. What are the signs or symptoms? Symptoms of this condition include a sudden, strong urge to urinate. Other symptoms include: Leaking urine. Urinating 8 or more times a day. Waking up to urinate 2 or more times overnight. How is this diagnosed? This condition may be diagnosed based on: Your symptoms and medical history. A physical exam. Blood or urine tests to check for possible causes, such as infection. You may also need to see a health care provider who specializes in urinary tract problems. This is called a urologist. How is this treated? Treatment for overactive bladder depends on the cause of your condition and whether it is mild or severe. Treatment may include: Bladder training, such as: ?Learning to control the urge to urinate by following a schedule to urinate at regular intervals. ?Doing Kegel exercises to strengthen the pelvic floor muscles that support your bladder. Special devices, such as: ?Biofeedback. This uses sensors to help you become aware of your body's signals. ?Electrical stimulation. This uses electrodes placed inside the body (implanted) or outside the body. These electrodes send gentle pulses of electricity to strengthen the nerves or muscles that control the bladder. ?Women may use a plastic device, called a pessary, that fits into the vagina and supports the bladder. Medicines, such as: ?Antibiotics to treat bladder infection. ?Antispasmodics to stop the bladder from releasing urine at the wrong time. ?Tricyclic antidepressants to relax bladder muscles. ?Injections of botulinum toxin type A directly into the bladder tissue to relax bladder muscles. Surgery, such as: ?A device may be implanted to help manage the nerve signals that control urination. ?An electrode may be implanted to stimulate electrical signals in the bladder. ?A procedure may be done to change the shape of the bladder. This is done only in very severe cases. Follow these instructions at home: Eating and drinking Make diet or lifestyle changes recommended by your health care provider. These may include: ?Drinking fluids throughout the day and not only with meals. ?Cutting down on caffeine or alcohol. ?Eating a healthy and balanced diet to prevent constipation. This may include: ?Choosing foods that are high in fiber, such as beans, whole grains, and fresh fruits and vegetables. ?Limiting foods that are high in fat and processed sugars, such as fried and sweet foods. Lifestyle Lose weight if needed. Do not use any products that contain nicotine or tobacco. These include cigarettes, chewing tobacco, and vaping devices, such as e-cigarettes. If you need help quitting, ask your health care provider. General instructions Take xqit-cwl-hdqfeir and prescription medicines only as told by your health care provider. If you were prescribed an antibiotic medicine, take it as told by your health care provider. Do not stop taking the antibiotic even if you start to feel better. Use any implants or pessary as told by your health care provider. If needed, wear pads to absorb urine leakage. Keep a log to track how much and when you drink, and when you need to urinate. This will help your health care provider monitor your condition. Keep all follow-up visits. This is important. Contact a health care provider if: You have a fever or chills. Your symptoms do not get better with treatment. Your pain and discomfort get worse. You have more frequent urges to urinate. Get help right away if: You are not able to control your bladder. Summary Overactive bladder refers to a condition in which a person has a sudden and frequent need to urinate. Several conditions may lead to an overactive bladder. Treatment for overactive bladder depends on the cause and severity of your condition. Making lifestyle changes, doing Kegel exercises, keeping a log, and taking medicines can help with this condition. This information is not intended to replace advice given to you by your health care provider. Make sure you discuss any questions you have with your health care provider. Document Revised: 04/02/2021 Document Reviewed: 04/02/2021 [employer] Patient Education 2023 [employer]. 02/25/2025 15:56:44 Hematuria, Adult Hematuria, Adult Hematuria is blood in the urine. Blood may be visible in the urine, or it may be identified with a test. This condition can be caused by infections of the bladder, urethra, kidney, or prostate. Other possible causes include: Kidney stones. Cancer of the [...] blood in your urine, even if it is painless or the blood stops without treatment. Blood in the urine, when it happens and then stops and then happens again, can be a symptom of a very serious condition, including cancer. There is no pain in the initial stages of many urinary cancers. Follow these instructions at home: Medicines Take bqjn-hst-vjiuzzz and prescription medicines only as told by your health care provider. If you were prescribed an antibiotic medicine, take it as told by your health care provider. Do not stop taking the antibiotic even if you start to feel better. Eating and drinking Drink enough fluid to keep your urine pale yellow. It is recommended that you drink 3 4 quarts (2.8 3.8 L) a day. If you have been diagnosed with an infection, drinking cranberry juice in addition to large amounts of water is recommended. Avoid caffeine, tea, and carbonated beverages. These tend to irritate the bladder. Avoid alcohol because it may irritate the prostate (in males). General instructions If you have been diagnosed [...] changes or any new symptoms. It is up to you to get the results of any tests. Ask your health care provider, or the department that is doing the test, when your results will be ready. Keep all follow-up visits. This is important. Contact a health care provider if: You develop back pain. You have a fever or chills. You have nausea or vomiting. Your symptoms do not improve after 3 days. Your symptoms get worse. Get help right away if: You develop severe vomiting and are unable to take medicine without vomiting. You develop severe [...] blood in your urine, even if it is painless or the blood stops without treatment. Take sefz-dgt-oghxnwp and prescription medicines only as told by your health care provider. Drink enough fluid to keep your urine pale yellow. This information is not intended to replace advice given to you by your health care provider. Make sure you discuss any questions you have with your health care provider. Document Revised: 03/14/2021 Document Reviewed: 03/14/2021 [employer] Patient Education 2023 [employer]. 02/25/2025 15:56:43 Dietary Guidelines to Help Prevent Kidney Stones Dietary Guidelines to Help Prevent Kidney Stones Kidney stones are deposits of minerals and salts that form inside your kidneys. Your risk of developing kidney stones may be greater depending on your diet, your lifestyle, the medicines you take, and whether you have certain medical conditions. Most people can lower their risks of developing kidney stones by following these dietary guidelines. Your dietitian may give you more specific [...] include: ?8 oz (237 mL) of milk, hxggibw-ilcfnoxtqifn-bwbuw milk, and calcium-fortifiedfruit juice. Calcium-fortified means that [...] table and allow each person to add their own salt to taste. Use vegetable protein, [...] fish, or seafood. ?When you prepare animal proteins, cut pieces into small portion sizes. For [...] ?Have two kinds of vegetables at dinner. You may be told to limit foods that are high in a substance called oxalate. These include: ?Spinach (cooked), rhubarb, beets, sweet potatoes, and [place] chard. ?Peanuts. ?Potato chips, english fries, and baked potatoes with skin on. ?Nuts and nut products. ?Chocolate. If you regularly take a diuretic medicine, make sure to eat at least 1 or 2 servings of fruits or vegetables that are high in potassium each day. These include: ?Avocado. ?Banana. ?Martin, prune, carrot, or tomato juice. ?Baked potato. ?Cabbage. ?Beans and split peas. Lifestyle Drink enough fluid to keep your urine pale yellow. This is the most important thing you can do. Spread your fluid intake throughout the day. If you drink alcohol: ?Limit how much you have to: ?0 1 drink a day for women who are not . ?0 2 drinks a day for men. ?Know how much alcohol is in your drink. [...] provider and dietitian about taking daily supplements. Depending on your health and the cause of your kidney stones, you may be told: ?Do not take high-dose supplements of vitamin C (1,000 mg a day or more). ?To take a calcium supplement. ?To take a daily probiotic supplement. ?To take other supplements such as magnesium, fish oil, or vitamin B6. Take qsnr-jee-lqwaped and prescription medicines only as told by [...] sausages, meat loaves, and hot dogs. Dairy Cheeses. Beverages Regular soft drinks. Regular vegetable juice. Seasonings and condiments Seasoning blends with salt. Salad dressings. Soy sauce. Ketchup. Barbecue sauce. Other foods Canned soups. Canned pasta sauce. Casseroles. Pizza. Lasagna. Frozen meals. Potato chips. Mexican fries. The items listed above may not [...] with your health care provider. Document Revised: 10/24/2022 Document Reviewed: 10/24/2022 [employer] Patient Education 2023 [employer]. Follow Up Care 02/25/2025 09:27:22 With:Lorne GONZALEZ, TEDDY Gonzalez, URO Address: [address] [place] [address] [place] [id number]- When: Unknown Comments:as scheduled apr 2025 [facility] 02-25-2025 Note Patient Education Nephrology Dietary Guidelines to Help Prevent Kidney Stones Kidney stones are deposits of minerals and salts that form inside your kidneys. Your risk of developing kidney stones may be greater depending on your diet, your lifestyle, the medicines you take, and whether you have certain medical conditions. Most people can lower their risks of developing kidney stones by following these dietary guidelines. Your dietitian may give you more specific instructions depending on your overall health and the type of kidney stones you tend to develop. What are tips for following this plan? Reading food labels ??? Choose foods with no salt added or low-salt labels. Limit your salt (sodium) intake to less than 1,500 mg a day. ??? Choose foods with calcium for each meal and snack. Try to eat about 300 mg of calcium at each meal. Foods that contain 200?500 mg of calcium a serving include: ? 8 oz (237 mL) of milk, kvfuqof-bgackexgkdkx-cottt milk, and calcium-fortifiedfruit juice. Calcium-fortified means that [...] much calcium is recommended for you. Shopping ??? Buy plenty of fresh fruits and vegetables. Most people do not need to avoid fruits and vegetables, even if these foods contain nutrients that may contribute to kidney stones. ??? When shopping for convenience foods, choose: ? Whole pieces of fruit. ? Pre-made salads with dressing on the side. ? Low-fat fruit and yogurt smoothies. ??? Avoid buying frozen meals or prepared deli foods. These can be high in sodium. ??? Look for foods with live cultures, such as yogurt and kefir. ??? Choose high-fiber grains, such as whole-wheat breads, oat bran, and wheat cereals. Cooking ??? Do not add salt to food when cooking. Place a salt shaker on the table and allow each person to add their own salt to taste. ??? Use vegetable protein, such as beans, textured vegetable protein (TVP), or tofu, instead of meat in pasta, casseroles, and soups. Meal planning ??? Eat less salt, if told by your dietitian. To do this: ? Avoid eating processed or pre-made food. ? Avoid eating fast food. ??? Eat less animal protein, including cheese, meat, poultry, or fish, if told by your dietitian. To do this: ? Limit the number of times you have meat, poultry, fish, or cheese each week. Eat a diet free of meat at least 2 days a week. ? Eat only one serving each day of meat, poultry, fish, or seafood. ? When you prepare animal proteins, cut pieces into small portion sizes. For most meat and fish, one serving is about the size of the palm of your hand. ??? Eat at least five servings of fresh fruits and vegetables each day. To do this: ? Keep fruits and vegetables on hand for snacks. ? Eat one piece of fruit or a handful of berries with breakfast. ? Have a salad and fruit at lunch. ? Have two kinds of vegetables at dinner. ??? You may be told to limit foods that are high in a substance called oxalate. These include: ? Spinach (cooked), rhubarb, beets, sweet potatoes, and [place] chard. ? Peanuts. ? Potato chips, english fries, and baked potatoes with skin on. ? Nuts and nut products. ? Chocolate. ??? If you regularly take a diuretic medicine, make sure to eat at least 1 or 2 servings of fruits or vegetables that are high in potassium each day. These include: ? Avocado. ? Banana. ? Martin, prune, carrot, or tomato juice. ? Baked potato. ? Cabbage. ? Beans and split peas. Lifestyle ??? Drink enough fluid to keep your urine pale yellow. This is the most important thing you can do. Spread your fluid intake throughout the day. ??? If you drink alcohol: ? Limit how much you have to: ? 0?1 drink a day for women who are not . ? 0?2 drinks a day for men. ? Know how much alcohol is in your drink. In the [place] one drink equals one 12 oz bottle of beer (355 mL), one 5 oz glass of wine (148 mL), or one 1? oz glass of hard liquor (44 mL). ??? Lose weight if told by your health care provider. Work with your dietitian to find an eating plan and weight loss strategies that work best for you. General information ??? Talk to your health care provider and dietitian about taking daily supplements. Depending on your health and the cause of your kidney stones, you may be told: ? Do not take high-dose supplements of vitamin C (1,000 mg a day or more). ? To take a calcium supplement. ? To take a daily probiotic supplement. ? To take other supplements such as magnesium, fish oil, or vitamin B6. ??? Take hzcz-vpc-vvpdlgb and prescription medicines only as told by your health (more content not included)... [facility] 01-13-2025 History of Present illness Narrative Associated Order(s): L Inj/Asp: R knee Post-Procedure Diagnose(s): Chronic pain of right knee L Inj/Asp: R knee on 01/13/2025 11:43 AM Indications: pain Details: 22 G needle, lateral approach Medications: 32 mg triamcinolone acetonide 32 MG Consent was given by the patient. Images from the original note were not included. @SPENCERTE@ Donna Reyes Delores is a 74 y.o. female who presents for Post-op of the Left Knee HPI: History of Present Illness The patient is a 6-week status post left total knee arthroplasty, with the surgery performed on 12/01/2024. She is ambulating with a cane today and is accompanied by her . She reports satisfactory progress in her rehabilitation, with only two sessions remaining. She has achieved a flexion of 109 degrees in her left knee. She has been applying castor oil to her skin, which she describes as very dry. Additionally, she notes that the swelling in her knee varies from day to day. Satisfaction is expressed with the minimal scarring from the surgery, contrary to her usual tendency to scar poorly. Recently, she experienced discomfort in her right knee, but the pain has since subsided. No injections have been received since her surgery. The last injection was administered on 06/15/2024, marking a period of 7 months without treatment. She is planning a trip to [facility] in March 2025. SUBJECTIVE: MEDICATIONS: Current Outpatient Medications Medication Instructions Acetaminophen (TYLENOL ARTHRITIS PAIN PO) ASPIRIN 81 MG chewable tablet As needed calcium 200 MG tablet celecoxib (CELEBREX) 100 mg, 2 times daily cholecalciferol (Vitamin D-3) 125 MCG (5000 UT) capsule Docusate Sodium (DSS) 100 MG capsule Every 24 hours Dorzolamide HCl-Timolol Mal PF 2-0.5 % solution 1 drop, Ophthalmic, 2 times daily dorzolamide-timolol (Cosopt) 2-0.5 % ophthalmic solution 1 drop, Both Eyes, 2 times daily gabapentin (NEURONTIN) 300 mg, Oral, 3 times daily Krill Oil 350 MG capsule Lumigan 0.01 % ophthalmic solution 1 drop, Both Eyes, Nightly Multiple Vitamin (MULTI VITAMIN DAILY PO) Potassium 99 MG tablet Every 24 hours prednisoLONE acetate (Pred-Forte) 1 % ophthalmic suspension tiZANidine (Zanaflex) 2 MG tablet ALLERGIES: Allergies Allergen Reactions Latanoprost Itching Meloxicam GI bleeding Latex Rash SURGICAL HISTORY: Past Surgical History: Procedure Laterality Date ANKLE FRACTURE SURGERY 2003 CATARACT EXTRACTION, BILATERAL 2019 SECTION, LOW TRANSVERSE x2 CHOLECYSTECTOMY 2013 CHOLESTEATOMA EXCISION 2013 DENTAL SURGERY EYE SURGERY Left 2023 Epi membrane HARDWARE REMOVAL FOOT / ANKLE Right 11/13/2015 Partial Hardware removal rt ankle KNEE SURGERY 2008 Arthroscopy Knee KNEE SURGERY 2010 knee arthroscopy LASIK ORIF ANKLE FRACTURE Right 2003 ME GUM GRAFT 2 peridontal sx TOTAL KNEE ARTHROPLASTY Left 12/01/2024 [facility] WRIST FRACTURE SURGERY Right REVIEW OF SYMPTOMS: The review of systems, history and current medications list are all reviewed today. OBJECTIVE: Visit Vitals Ht 5' 4 Wt 208 lb BMI 35.70 kg/m Smoking Status Former BSA 2.06 m Physical Exam Gait: Ambulating with a cane Left knee: very mild swelling. Incision well healed. ROM 0-110. Negative homans. 5/5 flex/ext strength. NV status unchanged Results Three views, bilateral PA weight-bearing/sunrise/lateral left knee, taken today and saved to the permanent medical record are reviewed. Prosthesis is unchanged in position and alignment. No signs of prosthetic wear or loosening. No periprosthetic fractures. ASSESSMENT AND PLAN: I reviewed the history, physical exam, diagnostic studies, and diagnosis with the patient. Assessment & Plan 1. Post-operative status following left total knee arthroplasty: The swelling in the knee is minimal and expected to continue decreasing over time. The surgical scar is healing well. Advised to apply vitamin E lotion to the skin. A follow-up appointment will be scheduled for 03/2025, during which an x-ray of the left knee will be performed. 2. Advanced degenerative osteoarthrosis of the right knee: Received a Zilretta injection today. If necessary, another injection can be administered on 04/16/2025. If additional treatment is required prior to the trip in 03/2025, a gel injection can be considered. After informed consent and using sterile technique, the superolateral aspect of the right knee(s) was prepped with alcohol and Betadine. The skin was anesthetized with ethyl chloride and the knee was then injected with 5 mL Zilretta with a 22-gauge 1 1/2 inch needle. The patient tolerated this well. A Band-Aid was applied. The patient was instructed to ice the knee and to watch for any signs of infection including redness, increased pain in the knee, drainage from the injection site, fever, chills, etc. The patient was instructed to call the office if he/she experiences any adverse reaction from the injection. Diagnoses and all orders for this visit: Status post total left knee replacement - XR knee 3 views left Chronic pain of right knee - L Inj/Asp: R knee Harley Arciniega D.O. Attestation This note was created using voice recognition through [employer]. documented in this encounter [facility] 12-29-2024 History of Present illness Narrative Assessment/Plan Diagnoses and all orders for this visit: 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 edema - Branch Retinal Vein Occlusion noted on examination. A strong association with systemic hypertension explained. Maintain regular follow up visits with PCP. Macular Edema 2/2 to branch retinal vein occlusion (BRVO) also noted. R/B/A/E provided for antiVEGF therpay today. Counseled patient on risk and symptoms of non-fatal vascular accidents such as cerebral stroke. Neovascular glaucoma (NVG)/proliferative complications risk discussed. Questions and concerns addressed. Instructed to call with any discomfort, loss of vision, discharge, questions or concerns. - Pt sees Dr. Velasquez, R.A.C. - Using Pred Acetate both eyes (OU) QID. Epiretinal membrane (ERM) of left eye - The condition and pathophysiology were described to the patient. An epiretinal membrane (ERM) has the potential to influence quality of vision including acuity as well as metamorphopsia. Advised observation at this time. Dry eyes, bilateral - Dry Eyes OU -- Environmental changes to minimize dryness and exposure and the use of artificial tears were recommended. Blepharitis of upper and lower eyelids of both eyes, unspecified type - Blepharitis, posterior type OU - The patient exhibits inspissated meibomian glands. Warm compresses, lid massage and lid scrubs were recommended. Steroid Response Glaucoma both eyes (OU): - intraocular pressure (IOP) continues to go up and down between seeing retina and myself. She is taking Pred Acetate both eyes (OU) QID and this is likely the cause of her elevated intraocular pressure (IOP). It has been difficulty expressing the need for ocular surface treatment so that topical glaucoma drops (gtts) can be executed to better manage the elevated intraocular pressure (IOP) found on exam. - Cont Lumigan (attempted to Rx Zioptan however kicked back) both eyes (OU) at bedtime. Pt cannot tolerate generic Latanoprost. - Cont Dorz/Dick left eye (OS) BID. (Had been seen in [place] winter 2024 with intraocular pressure (IOP) of 9 both eyes (OU)) documented in this encounter [facility] 12-16-2024 History of Present illness Narrative Images from the original note were not included. @SPENCERTE@ [place] Delores is a 74 y.o. female who presents for Pain and Post-op of the Left Knee HPI: History of Present Illness The patient is 15 days status post left total knee arthroplasty, with the surgery performed on 12/01/2024. She reports that her surgical bandage was replaced due to excessive leakage. The replacement bandage has been in place since yesterday, and she has not observed any further drainage. She has not yet resumed showering. Her knee flexion was measured at 93 degrees yesterday, but she is experiencing soreness today. She is scheduled to start outpatient therapy next week in [place]. Her current medication regimen includes Eliquis, which will be discontinued today, and baby aspirin. She has a few remaining doses of gabapentin, which she plans to use during physical therapy. She is also taking Tylenol Extra Strength and requests a refill of her prescription. She inquires about the possibility of resuming her regular vitamin intake, including calcium. SUBJECTIVE: MEDICATIONS: Current Outpatient Medications Medication Instructions Acetaminophen (TYLENOL ARTHRITIS PAIN PO) ASPIRIN 81 MG chewable tablet As needed calcium 200 MG tablet cholecalciferol (Vitamin D-3) 125 MCG (5000 UT) capsule Docusate Sodium (DSS) 100 MG capsule Every 24 hours Dorzolamide HCl-Timolol Mal PF 2-0.5 % solution 1 drop, Ophthalmic, 2 times daily dorzolamide-timolol (Cosopt) 2-0.5 % ophthalmic solution 1 drop, Both Eyes, 2 times daily gabapentin (NEURONTIN) 300 mg, Oral, 3 times daily HYDROcodone-acetaminophen (Momence) 5-325 MG tablet 1-2 tablets, Oral, Every 4 hours PRN Journavx 50 mg, Oral, Every 12 hours, For the first dose, take 2 tablets (100 mg) on an empty stomach at least 1 hour before or 2 hours after food. Starting 12 hours after the initial dose, take 1 tablet (50 mg) every 12 hours with or without food. Krill Oil 350 MG capsule Lumigan 0.01 % ophthalmic solution 1 drop, Both Eyes, Nightly Multiple Vitamin (MULTI VITAMIN DAILY PO) Potassium 99 MG tablet Every 24 hours prednisoLONE acetate (Pred-Forte) 1 % ophthalmic suspension tiZANidine (Zanaflex) 2 MG tablet ALLERGIES: Allergies Allergen Reactions Latanoprost Itching Meloxicam GI bleeding Latex Rash SURGICAL HISTORY: Past Surgical History: Procedure Laterality Date ANKLE FRACTURE SURGERY 2003 CATARACT EXTRACTION, BILATERAL 2019 SECTION, LOW TRANSVERSE x2 CHOLECYSTECTOMY 2013 CHOLESTEATOMA EXCISION 2013 DENTAL SURGERY EYE SURGERY Left 2023 Epi membrane HARDWARE REMOVAL FOOT / ANKLE Right 11/13/2015 Partial Hardware removal rt ankle KNEE SURGERY 2009 Arthroscopy Knee KNEE SURGERY 2010 knee arthroscopy LASIK ORIF ANKLE FRACTURE Right 2003 ME GUM GRAFT 2 peridontal sx TOTAL KNEE ARTHROPLASTY Left 12/01/2024 [facility] WRIST FRACTURE SURGERY Right REVIEW OF SYMPTOMS: The review of systems, history and current medications list are all reviewed today. OBJECTIVE: Visit Vitals Ht 5' 4 Wt 208 lb BMI 35.70 kg/m Smoking Status Former BSA 2.06 m Physical Exam General: Patient appears in no acute distress. Right Knee: mild swelling. No erythema. No blisters. full extension. flexion is approximately 95 degrees. Surgical wound on the left knee is healing well with no signs of infection or drainage. Skin around the wound is intact. Results Imaging Three views, bilateral PA weight-bearing/sunrise/lateral left knee, taken today and saved to the permanent medical record are reviewed. Prosthesis is unchanged in position and alignment. No signs of prosthetic wear or loosening. No periprosthetic fractures. ASSESSMENT AND PLAN: I reviewed the history, physical exam, diagnostic studies, and diagnosis with the patient. Assessment & Plan 1. Post-operative status following left total knee arthroplasty: Her recovery is progressing well, with no complications noted. The two sutures in the leg will be removed today, while the cass will be retained for a few more days due to extra initial post op drainage. Continue icing the knee to manage swelling and inflammation. Celebrex 200 mg once daily is recommended for soreness and inflammation, which can be taken concurrently with baby aspirin. Maintain Tylenol regimen and resume regular vitamin intake, including calcium. Prescription refill for Tylenol has been provided. Option to either have therapist remove cass next week or return to office for removal. Showering is permitted today, ensuring gentle washing of the wound with soap and water. Follow-up Scheduled for a follow-up visit in 4 weeks, during which another x-ray will be conducted. Diagnoses and all orders for this visit: Status post total left knee replacement - XR knee 3 views left - Suzetrigine (Journavx) 50 MG tablet; Take 50 mg by mouth every 12 (twelve) hours for 14 days For the first dose, take 2 tablets (100 mg) on an empty stomach at least 1 hour before or 2 hours after food. Starting 12 hours after the initial dose, take 1 tablet (50 mg) every 12 hours with or without food. Harley Arciniega D.O. Attestation This note was created using voice recognition through [employer]. documented in this encounter [facility] 12-05-2024 Note Progress Note-Becky oneill Patient: DONNA ESTRELLA Age: 74 years Sex: Female : 1950 Associated Diagnoses: None Author: Paolo GONZALEZ, Adriana Rivers Postoperative Information Postoperative disposition: Postoperative disposition: To PACU. Optimetrix number: Optimetrix number [id number]. Anesthetic utilized: General. Health Status Allergies: Allergic Reactions (Selected) Severity Not Documented Latanoprost ophthalmic- Itching. Nonallergic Reactions (Selected) Severity Not Documented Meloxicam- Bleeding. Physical Examination VS/Measurements Pain Assessment: Controlled. General: Awake, Appropriate. Respiratory: Adequate air exchange. Cardiovascular: Stable. Neurological Assessment Anesthetic outcome No anesthetic complications noted. Adequate pain relief. Review / Management Condition: Stable. Plan Transfer/Discharge: Transfer/Discharge Discharge when meets criteria ( From PACU to floor ). [facility] Comment on above: Result Comment: Elec tronically Signed By: Paolo GONZALEZ, Adriana Rivers\.br\Date and Time Signed: 12/05/24 10:38 EDT 12-02-2024 Evaluation + Plan note Extrac rock from: Title:Discharge Summary Author:Harley Arciniega DO Date:12/02/24 Discharge Information Discharge Summary Information: Admit Date/Time: 12/01/24 05:29Discharge Date/Time: 12/02/24 07:44 Admitting Physician: Harley Arciniega DO Referring Physician for Admission: Harley Arciniega DO Consulting Physicians: none Admitting Diagnoses: DJD L knee procedure: L TKA discharge disposition: home Discharge Diagnoses: Unilateral primary osteoarthritis, left knee Prescription and Home Meds: acetaminophen (acetaminophen 500 mg Tab) 500 mg, 1 tab(s), Oral, q4hr, 60 tab(s), 0 Refill(s) bimatoprost ophthalmic (Lumigan 0.01% ophthalmic solution) OPTH, Daily, 0 Refill(s) cholecalciferol (Vitamin D3) 125 mcg dorzolamide-timolol ophthalmic (dorzolamide-timolol Opth 2%-0.5% Becca) OPTH, Daily, 0 Refill(s) multivitamin with minerals (Womens Pack oral tablet) 1 tab(s), Oral, Daily, 0 Refill(s) omega-3 polyunsaturated fatty acids (Nature's Bounty Red Krill Oil 500 mg oral capsule) 1 cap, Oral, Daily, 0 Refill(s) potassium chloride (potassium chloride 99 mg oral tablet) 99 mg, 1 tab(s), Oral, Daily, 100 tab(s), 0 Refill(s) prednisoLONE ophthalmic (prednisoLONE Opth acetate 1% Susp 5 mL) 1 drop(s), INSTILL 1 DROP INTO BOTH EYES 4 TIMES A DAY tizanidine (tiZANidine 2 mg Tab) 0 Refill(s) Extracted from: Title:ANES Pre-operative Note 2022 Author:Adriana Arce Date:12/01/24 Patient: DONNA ESTRELLA Age: 74 years Sex: Female : 1950 Associated Diagnoses: None Author: Adriana Boone MD Preoperative Information Anesthesia Preop Info: Time patient last ate or drank 12/01/2024 00:00:00. Anesthesia history: Patient history: pain with spinal procedure 30 yrs ago. Family history+: None. Informed consent: Signed by patient. Re-evaluation prior to induction: Initial evaluation reviewed: No significant change. Review of Systems Eye Ear/Nose/Mouth/Throat Respiratory: No shortness of breath, No cough. Cardiovascular: Negative, No chest pain. Gastrointestinal: No heartburn. Musculoskeletal Neurologic Health Status Allergies: Allergic Reactions (Selected) Severity Not Documented Latanoprost ophthalmic- Itching. Nonallergic Reactions (Selected) Severity Not Documented Meloxicam- Bleeding., Allergies (2) ActiveSeverityReaction latanoprost ophthalmicItching meloxicamBleeding Current medications: (Selected) Inpatient Medications Ordered Sodium Chloride 0.9% IV Becca 1000 mL 1,000 mL: 1,000 mL, IV, 150 mL/hr, Routine, Start date 12/01/24 6:00:00 EDT, 6.7 hour(s), Total volume (mL): 1,000, 94.9 kg, 2.05, m2 cefazolin additive + Sodium Chloride 0.9% intravenous solution 50 mL: 2 gm = 1 EA, Powder-Inj, IV Piggyback, PREOP, Routine, Start date 12/01/24 6:00:00 EDT, 100 mL/hr, Infuse over 30 minute(s) tranexamic acid additive + premix generic diluent 100 mL: 1,000 mg = 100 mL, Soln-IV, IV Piggyback, PREOP, Routine, Start date 12/01/24 6:00:00 EDT, 200 mL/hr, Infuse over 30 minute(s) Documented Medications Documented Colace 100 mg Cap: 100 mg = 1 cap(s), Oral, BID, # 20 cap(s), Refills(s) 0, Constipation Lumigan 0.01% ophthalmic solution: OPTH, Daily, Refill(s) 0 Nature's Bounty Red Krill Oil 500 mg oral capsule: 1 cap, Oral, Daily, Refill(s) 0, Prophylaxis Tylenol 8 HR Arthritis Pain: 650 mg, Oral, BID, Refills(s) 0 Tylenol: 500 mg, Oral, BID, Refills(s) 0 Vitamin D3: 125 mcg Womens Pack oral tablet: 1 tab(s), Oral, Daily, Refill(s) 0, Prophylaxis cefdinir 300 mg Cap: 600 mg = 2 cap(s), Oral, BID, Refills(s) 0, Bladder problems dorzolamide-timolol Opth 2%-0.5% Becca: OPTH, Daily, Refill(s) 0 potassium chloride 99 mg oral tablet: 99 mg = 1 tab(s), Oral, Daily, # 100 tab(s), Refills(s) 0, Prophylaxis prednisoLONE Opth acetate 1% Susp 5 mL: 1 drop(s), INSTILL 1 DROP INTO BOTH EYES 4 TIMES A DAY tiZANidine 2 mg Tab: Refills(s) 0, Home Medications (12) Active cefdinir 300 mg Cap 600 mg = 2 cap(s), Oral, BID Colace 100 mg Cap 100 mg = 1 cap(s), Oral, BID dorzolamide-timolol Opth 2%-0.5% Becca , OPTH, Daily Lumigan 0.01% ophthalmic solution , OPTH, Daily Nature's Bounty Red Krill Oil 500 mg oral capsule 1 cap, Oral, Daily potassium chloride 99 mg oral tablet 99 mg = 1 tab(s), Oral, Daily prednisoLONE Opth acetate 1% Susp 5 mL 1 drop(s) tiZANidine 2 mg Tab Tylenol 500 mg, Oral, BID Tylenol 8 HR Arthritis Pain 650 mg, Oral, BID Vitamin D3 125 mcg Womens Pack oral tablet 1 tab(s), Oral, Daily , Medications (3) Active Scheduled: (2) ceFAZolin + Sodium Chloride 0.9% Minibag 50 mL 2 gm 1 EA, IV Piggyback, PREOP tranexamic acid + Generic Diluent 100 mL 1,000 mg 100 mL, IV Piggyback, PREOP Continuous: (1) Sodium Chloride 0.9% 1,000 mL 1,000 mL, IV, 150 mL/hr PRN: (0) Problem list: All Problems Anemia / SNOMED CT 302399931 / Confirmed Arthritis / SNOMED CT 7114222 / Confirmed Asymptomatic microscopic hematuria / SNOMED CT 3112438273 / Confirmed BMI 36.0-36.9,adult / SNOMED CT 976145069 / Confirmed Former smoker / SNOMED CT 42410621 / Confirmed Kidney stones / SNOMED CT 640298583 / Confirmed Mixed incontinence / SNOMED CT 73268314 / Confirmed Nocturia / SNOMED CT 965808742 / Confirmed Renal cysts, acquired, bilateral / SNOMED CT 949041537 / Confirmed Ureteral stone / SNOMED CT 34875301 / Confirmed Ureteral stone with hydronephrosis / SNOMED CT 5772960212 / Confirmed, Active Problems (11) Anemia Arthritis Asymptomatic microscopic hematuria BMI 36.0-36.9,adult Former smoker Kidney stones Mixed incontinence Nocturia Renal cysts, acquired, bilateral Ureteral stone Ureteral stone with hydronephrosis Histories Past Medical History: No active or resolved past medical history items have been selected or recorded. Family History: Congenital heart disease Father Primary malignant neoplasm of lung Mother Anemia Mother Primary malignant neoplasm of female breast Sister Procedure history: Cataract extraction and insertion of intraocular lens (9866494151) on 2020 at 70 Years. Cataract extraction and insertion of intraocular lens ([id number]) on 03/21/2020 at 69 Years. Cholecystectomy (08770876). Procedure on knee (351495039). Sclerotherapy of vein of lower limbs (8136308672). Comments: 11/18/2024 10:38 VICKYT - Adams ALMANZA, Keyonna Morocho 2022 Open reduction and internal fixation of right ankle fracture (793461361). CRPP (closed reduction and percutaneous pinning) of fracture of right wrist (9002475724). delivery x2 ([id number]). Social History Social & Psychosocial Habits Alcohol 11/18/2024Risk Assessment: Low Risk Substance Abuse 11/18/2024Risk Assessment: Denies Substance Abuse Tobacco 11/18/2024 Tobacco Use: Former smoker, quit more Smokeless tobacco use: Never Type: Cigarettes Concerns about tobacco use in household: No Smoking Cessation Yes . Physical Examination Vital Signs 12/01/2024 6:03 EDT Heart Rate Monitored 68 bpm Systolic Blood Pressure 136 mmHg Diastolic Blood Pressure 81 mmHg Mean Arterial Pressure, Monitered 99 mmHg 12/01/2024 6:02 EDT Blood Pressure Location Left arm 12/01/2024 6:02 EDT Heart Rate Monitored 72 bpm SpO2 93 % 12/01/2024 6:01 EDT Respiratory Rate 20 br/min Blood Pressure Location Right arm 12/01/2024 6:01 EDT Systolic Blood Pressure 138 mmHg Diastolic Blood Pressure 81 mmHg Mean Arterial Pressure, Monitered 100 mmHg Vital Signs (last 24 hrs) Last Charted Heart Rate Coaotiezq96 bpm (DECEMBER 01 06:03) TKV222 mmHg (DECEMBER 01 06:03) DBP81 mmHg (DECEMBER 01 06:03) Airway: Mallampati classification: II (soft palate, fauces, uvula visible). Respiratory: Lungs are clear to auscultation, Respirations are non-labored, adequate air exchange. Cardiovascular: Regular rhythm, No murmur, no JVD or edema. Review / Management Results review: No qualifying data available . Plan [employer] Anesthesiologists (ASA) physical status classification: Class II. Anesthetic Preoperative Plan: Anesthesia. Regional Spinal, and adductor canal block. Addendum by Paolo GONZALEZ, Adriana Rivers on December 01, 2024 10:25 EDT OK Future Appointments Appointment Date:05/18/2025 08:00:00 AM Scheduled Provider:Ramila Pradhan MD Location:[facility] Appointment Type:URO Office Visit Diagnostic Tests Pending * Path. Review 12/02/24 [facility] 05-08-2025 NoteDischarge Summary Patient: DONNA ESTRELLA Age: 74 years Sex: Female : 1950 Associated Diagnoses: None Author: Harley Arciniega DO Discharge Information Discharge Summary Information: Admit Date/Time: 12/01/24 05:29 Discharge Date/Time: 12/02/24 07:44 Admitting Physician: Harley Arciniega DO Referring Physician for Admission: Harley Arciniega DO Consulting Physicians: none Admitting Diagnoses: DJD L knee procedure: L TKA discharge disposition: home Discharge Diagnoses: Unilateral primary osteoarthritis, left knee Prescription and Home Meds: acetaminophen (acetaminophen 500 mg Tab) 500 mg, 1 tab(s), Oral, q4hr, 60 tab(s), 0 Refill(s) bimatoprost ophthalmic (Lumigan 0.01% ophthalmic solution) OPTH, Daily, 0 Refill(s) cholecalciferol (Vitamin D3) 125 mcg dorzolamide-timolol ophthalmic (dorzolamide-timolol Opth 2%-0.5% Becca) OPTH, Daily, 0 Refill(s) multivitamin with minerals (Womens Pack oral tablet) 1 tab(s), Oral, Daily, 0 Refill(s) omega-3 polyunsaturated fatty acids (Nature's Bounty Red Krill Oil 500 mg oral capsule) 1 cap, Oral, Daily, 0 Refill(s) potassium chloride (potassium chloride 99 mg oral tablet) 99 mg, 1 tab(s), Oral, Daily, 100 tab(s),0 Refill(s) prednisoLONE ophthalmic (prednisoLONE Opth acetate 1% Susp 5 mL) 1 drop(s), INSTILL 1 DROP INTO BOTH EYES 4 TIMES A DAY tizanidine (tiZANidine 2 mg Tab) 0 [facility]Result Comment: Electronically Signed By: Harley Arciniega DO\.br\Date and Time Signed: 12/02/24 07:44 [id number] NotePatient Education - Text [place], [place] [facility] DISCHARGE INSTRUCTIONS: TOTAL KNEE ARTHROPLASTY INCISION CARE: The bandage may be changed by your home Physical Therapist at 7 days postoperatively and worn an additional 7 days. A new Mepilex bandage should then be placed. The bandage is waterproof, so you may shower at home. Steri-strips (paper tape strips) may be applied to the incision if any slight wound separation is noted. These should remain in place for five days and then they may come off in the shower. Please notify the office if any increase in redness, tenderness, drainage, fever, or wound separation is noted beyond this point. MEDICATIONS: You may resume your home medications at the time of discharge. Arixtra and Lovenox are mild blood thinners that prevent the development of blood clots in the legs. One of these has been used during your hospitalization. After discharge home you should continue the use of two stomach coated baby Aspirin tablets daily with your largest meal for 30 days after home discharge. Please notify your doctor if you have a stomach sensitivity to Aspirin or history of previous stomach ulcers. Pain medication has been prescribed as well. You may continue to use the pain medication every fourhours as needed. Any narcotic pain medication can cause side effects including stomach upset, constipation, or light-headedness. You should not drive or operate machinery, or drink alcohol while using the narcotic pain medication. You should not use other pain medications with this prescription pain medication unless further directed by your physician. PHYSICAL THERAPY Continue the range of motion and strengthening exercises initiated by Physical Therapy in the hospital. Continue weight bearing, as ordered, to the operated knee as directed in Physical Therapy. This will be with the use of a walker or crutches initially. Physical therapy as begun in the hospital will continue at home, possibly with the sales support assistant of Home Health Physical Therapy or in the hospital as an outpatient. When you have become independent withthe physical therapy program, this will then be discontinued as a supervised program and you will be instructed to continue the physical therapy exercises at home. Your exercises are antunez to successful rehabilitation. You should gain full extension first, hopefully before hospital discharge, and gain 90 degrees flexion by one month post-op. Do the exercises daily, twice if preferred. DRIVING: Please do not drive for 4-6 weeks pending therapy progress. 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 It is therefore advised not to drive until after yourfirst office visit following surgery. FOLLOW-UP OFFICE VISIT: Harley Arciniega, DO [facility] [address] [place] [address] Reviewed: 12-17[facility]05-08-2025 NoteProgress Note-Physician Patient: DONNA ESTRELLA Age: 74 years Sex: Female : 1950 Associated Diagnoses: None Author: Harley Arciniega DO POD 1 s/p L TKA pain controlled. kait po. no CP/SOB walking from bathroom with PT L LE: dressings dry. comp supple. ankle PF/DF intact. foot well perfused. neg homans WBC 8.7 Hgb 10.2 Hct 32.1 plt 187 GFR 93 post op xrays reviewed yesterday. prosthesis in satisfactory position. Plan: - D/C home Objective Vital Signs 12/02/2024 3:35 EDT Temperature Oral 36.5 DegC Heart Rate Monitored 56 bpm LOW Respiratory Rate 16 br/min Systolic Blood Pressure 143 mmHg HI Diastolic Blood Pressure 80 mmHg SpO2 95 %[facility]Comment [facility]:Result Comment: Electronically Signed By: Harley Arciniega DO\.br\Date and Time Signed: 12/02/24 07:43 [id number] NotePatient Education - Text [place], [place] [facility] DISCHARGE INSTRUCTIONS: TOTAL KNEE ARTHROPLASTY INCISION CARE: The bandage may be changed by your home Physical Therapist at 7 days postoperatively and worn an additional 7 days. A new Mepilex bandage should then be placed. The bandage is waterproof, so you may shower at home. Steri-strips (paper tape strips) may be applied to the incision if any slight wound separation is noted. These should remain in place for five days and then they may come off in the shower. Please notify the office if any increase in redness, tenderness, drainage, fever, or wound separation is noted beyond this point. MEDICATIONS: You may resume your home medications at the time of discharge. Arixtra and Lovenox are mild blood thinners that prevent the development of blood clots in the legs. One of these has been used during your hospitalization. After discharge home you should continue the use of two stomach coated baby Aspirin tablets daily with your largest meal for 30 days after home discharge. Please notify your doctor if you have a stomach sensitivity to Aspirin or history of previous stomach ulcers. Pain medication has been prescribed as well. You may continue to use the pain medication every fourhours as needed. Any narcotic pain medication can cause side effects including stomach upset, constipation, or light-headedness. You should not drive or operate machinery, or drink alcohol while using the narcotic pain medication. You should not use other pain medications with this prescription pain medication unless further directed by your physician. PHYSICAL THERAPY Continue the range of motion and strengthening exercises initiated by Physical Therapy in the hospital. Continue weight bearing, as ordered, to the operated knee as directed in Physical Therapy. This will be with the use of a walker or crutches initially. Physical therapy as begun in the hospital will continue at home, possibly with the sales support assistant of Home Health Physical Therapy or in the hospital as an outpatient. When you have become independent withthe physical therapy program, this will then be discontinued as a supervised program and you will be instructed to continue the physical therapy exercises at home. Your exercises are antunez to successful rehabilitation. You should gain full extension first, hopefully before hospital discharge, and gain 90 degrees flexion by one month post-op. Do the exercises daily, twice if preferred. DRIVING: Please do not drive for 4-6 weeks pending therapy progress. 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 It is therefore advised not to drive until after yourfirst office visit following surgery. FOLLOW-UP OFFICE VISIT: Harley Arciniega, DO [facility] [address] [place] [address] Reviewed: 12-17[facility]05-07-2025 NoteInterdisciplinary Note - PT PT Evaluation completed with an AMPAC score of 18/24. Pt was able to perform bed mobility and transfer with Min A. Pt was able to ambulate a short distance art this time. Will follow daily. Will provide recommendations beginning on POD # 1 [facility]05-07-2025 NoteProgress Note-Physician Patient: DONNA ESTRELLA Age: 74 years Sex: Female : 1950 Associated Diagnoses: None Author: Paolo GONZALEZ, Adriana Rivers Preoperative Information Anesthesia Preop Info: Time patient last ate or drank 12/01/2024 00:00:00. Anesthesia history: Patient history: pain with spinal procedure 30 yrs ago. Family history+: None. Informed consent: Signed by patient. Re-evaluation prior to induction: Initial evaluation reviewed: No significant change. Review of Systems Eye Ear/Nose/Mouth/Throat Respiratory: No shortness of breath, No cough. Cardiovascular: Negative, No chest pain. Gastrointestinal: No heartburn. Musculoskeletal Neurologic Health Status Allergies: Allergic Reactions (Selected) Severity Not Documented Latanoprost ophthalmic- Itching. Nonallergic Reactions (Selected) Severity Not Documented Meloxicam- Bleeding., Allergies (2) Active Severity Reaction latanoprost ophthalmic Itching meloxicam Bleeding Current medications: (Selected) Inpatient Medications Ordered Sodium Chloride 0.9% IV Becca 1000 mL 1,000 mL: 1,000 mL, IV, 150 mL/hr, Routine, Start date 256:00:00 EDT, 6.7 hour(s), Total volume (mL): 1,000, 94.9 kg, 2.05, m2 cefazolin additive + Sodium Chloride 0.9% intravenous solution 50 mL: 2 gm = 1 EA, Powder-Inj, IV Piggyback, PREOP, Routine, Start date 12/01/24 6:00:00 EDT, 100 mL/hr, Infuse over 30 minute(s) tranexamic acid additive + premix generic diluent 100 mL: 1,000 mg = 100 mL, Soln-IV, IV Piggyback,PREOP, Routine, Start date 12/01/24 6:00:00 EDT, 200 mL/hr, Infuse over 30 minute(s) Documented Medications Documented Colace 100 mg Cap: 100 mg = 1 cap(s), Oral, BID, # 20 cap(s), Refills(s) 0, Constipation Lumigan 0.01% ophthalmic solution: OPTH, Daily, Refill(s) 0 Nature's Bounty Red Krill Oil 500 mg oral capsule: 1 cap, Oral, Daily, Refill(s) 0, Prophylaxis Tylenol 8 HR Arthritis Pain: 650 mg, Oral, BID, Refills(s) 0 Tylenol: 500 mg, Oral, BID, Refills(s) 0 Vitamin D3: 125 mcg Womens Pack oral tablet: 1 tab(s), Oral, Daily, Refill(s) 0, Prophylaxis cefdinir 300 mg Cap: 600 mg = 2 cap(s), Oral, BID, Refills(s) 0, Bladder problems dorzolamide-timolol Opth 2%-0.5% Becca: OPTH, Daily, Refill(s) 0 potassium chloride 99 mg oral tablet: 99 mg = 1 tab(s), Oral, Daily, # 100 tab(s), Refills(s) 0, Prophylaxis prednisoLONE Opth acetate 1% Susp 5 mL: 1 drop(s), INSTILL 1 DROP INTO BOTH EYES 4 TIMES A DAY tiZANidine 2 mg Tab: Refills(s) 0, Home Medications (12) Active cefdinir 300 mg Cap 600 mg = 2 cap(s), Oral, BID Colace 100 mg Cap 100 mg = 1 cap(s), Oral, BID dorzolamide-timolol Opth 2%-0.5% Becca , OPTH, Daily Lumigan 0.01% ophthalmic solution , OPTH, Daily Nature's Bounty Red Krill Oil 500 mg oral capsule 1 cap, Oral, Daily potassium chloride 99 mg oral tablet 99 mg = 1 tab(s), Oral, Daily prednisoLONE Opth acetate 1% Susp 5 mL 1 drop(s) tiZANidine 2 mg Tab Tylenol 500 mg, Oral, BID Tylenol 8 HR Arthritis Pain 650 mg, Oral, BID Vitamin D3 125 mcg Womens Pack oral tablet 1 tab(s), Oral, Daily , Medications (3) Active Scheduled: (2) ceFAZolin + Sodium Chloride 0.9% Minibag 50 mL 2 gm 1 EA, IV Piggyback, PREOP tranexamic acid + Generic Diluent 100 mL 1,000 mg 100 mL, IV Piggyback, PREOP Continuous: (1) Sodium Chloride 0.9% 1,000 mL 1,000 mL, IV, 150 mL/hr PRN: (0) Problem list: All Problems Anemia / SNOMED CT 218543799 / Confirmed Arthritis / SNOMED CT 4398347 / Confirmed Asymptomatic microscopic hematuria / SNOMED CT 9956587974 / Confirmed BMI 36.0-36.9,adult / SNOMED CT 373533163 / Confirmed Former smoker / SNOMED CT 78958339 / Confirmed Kidney stones / SNOMED CT 875798888 / Confirmed Mixed incontinence / SNOMED CT 30809445 / Confirmed Nocturia / SNOMED CT 443501952 / Confirmed Renal cysts, acquired, bilateral / SNOMED CT 656189851 / Confirmed Ureteral stone / SNOMED CT 46338610 / Confirmed Ureteral stone with hydronephrosis / SNOMED CT 2818356372 / Confirmed, Active Problems (11) Anemia Arthritis Asymptomatic microscopic hematuria BMI 36.0-36.9,adult Former smoker Kidney stones Mixed incontinence Nocturia Renal cysts, acquired, bilateral Ureteral stone Ureteral stone with hydronephrosis Histories Past Medical History: No active or resolved past medical history items have been selected or recorded. Family History: Congenital heart disease Father Primary malignant neoplasm of lung Mother Anemia Mother Primary malignant neoplasm of female breast Sister Procedure history: Cataract extraction and insertion of intraocular lens (1924834941) on 2020 at 70 Years. Cataract extraction and insertion of intraocular lens (9630296968) on 03/21/2020 at 69 Years. Cholecystectomy (39779944). Procedure on knee (504859717). Sclerotherapy of vein of lower limbs (9902072234). Comments: 11/18/2024 10:38 EDT - Adams ALMANZA, Keyonna Morocho (more content not included)...[facility] HospitalComment on above:Result Comment: Electronically Signed By: Paolo GONZALEZ, Adriana Rivers\.br\Date and Time Signed: 12/01/24 10:25 [id number] Hospital Discharge instructions Patient Education 12/01/2024 07:13:40 Ignacio Arciniega - Total Knee Arthroplasty (Custom) [place], [place] [facility] DISCHARGE INSTRUCTIONS: TOTAL KNEE ARTHROPLASTY INCISION CARE: The bandage may be changed by your home Physical Therapist at 7 days postoperatively and worn an additional 7 days. A new Mepilex bandage should then be placed. The bandage is waterproof, so you may shower at home. Steri-strips (paper tape strips) may be applied to the incision if any slight wound separation is noted. These should remain in place for five days and then they may come off in the shower. Please notify the office if any increase in redness, tenderness, drainage, fever, or wound separation is noted beyond this point. MEDICATIONS: You may resume your home medications at the time of discharge. Arixtra and Lovenox are mild blood thinners that prevent the development of blood clots in the legs. One of these has been used during your hospitalization. After discharge home you should continue the use of two stomach coated baby Aspirin tablets daily with your largest meal for 30 days after home discharge. Please notify your doctor if you have a stomach sensitivity to Aspirin or history of previous stomach ulcers. Pain medication has been prescribed as well. You may continue to use the pain medication every fourhours as needed. Any narcotic pain medication can cause side effects including stomach upset, constipation, or light-headedness. You should not drive or operate machinery, or drink alcohol while using the narcotic pain medication. You should not use other pain medications with this prescription pain medication unless further directed by your physician. PHYSICAL THERAPY Continue the range of motion and strengthening exercises initiated by Physical Therapy in the hospital. Continue weight bearing, as ordered, to the operated knee as directed in Physical Therapy. This will be with the use of a walker or crutches initially. Physical therapy as begun in the hospital will continue at home, possibly with the sales support assistant of Home Health Physical Therapy or in the hospital as an outpatient. When you have become independent withthe physical therapy program, this will then be discontinued as a supervised program and you will be instructed to continue the physical therapy exercises at home. Your exercises are antunez to successful rehabilitation. You should gain full extension first, hopefully before hospital discharge, and gain 90 degrees flexion by one month post-op. Do the exercises daily, twice if preferred. DRIVING: Please do not drive for 4-6 weeks pending therapy progress. 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 It is therefore advised not to drive until after yourfirst office visit following surgery. FOLLOW-UP OFFICE VISIT: Harley Arciniega, DO [facility] [address] [place] [address] Reviewed: 12-17 Follow Up Care 10/14/2024 09:57:46 With:ALDEN WHEELER Address: [address] [place] [address] Business (1) When: Unknown Comments:No need to see PCP at this time unless symptoms worsen. With:Harley Arciniega Address: [address] [place] [id number] Business (1) When:12/16/2024 09:45:00 [facility] 05-07-2025 NotePatient Education - Text MathisChancellor, [place] [facility] DISCHARGE INSTRUCTIONS: TOTAL KNEE ARTHROPLASTY INCISION CARE: The bandage may be changed by your home Physical Therapist at 7 days postoperatively and worn an additional 7 days. A new Mepilex bandage should then be placed. The bandage is waterproof, so you may shower at home. Steri-strips (paper tape strips) may be applied to the incision if any slight wound separation is noted. These should remain in place for five days and then they may come off in the shower. Please notify the office if any increase in redness, tenderness, drainage, fever, or wound separation is noted beyond this point. MEDICATIONS: You may resume your home medications at the time of discharge. Arixtra and Lovenox are mild blood thinners that prevent the development of blood clots in the legs. One of these has been used during your hospitalization. After discharge home you should continue the use of two stomach coated baby Aspirin tablets daily with your largest meal for 30 days after home discharge. Please notify your doctor if you have a stomach sensitivity to Aspirin or history of previous stomach ulcers. Pain medication has been prescribed as well. You may continue to use the pain medication every fourhours as needed. Any narcotic pain medication can cause side effects including stomach upset, constipation, or light-headedness. You should not drive or operate machinery, or drink alcohol while using the narcotic pain medication. You should not use other pain medications with this prescription pain medication unless further directed by your physician. PHYSICAL THERAPY Continue the range of motion and strengthening exercises initiated by Physical Therapy in the hospital. Continue weight bearing, as ordered, to the operated knee as directed in Physical Therapy. This will be with the use of a walker or crutches initially. Physical therapy as begun in the hospital will continue at home, possibly with the sales support assistant of Home Health Physical Therapy or in the hospital as an outpatient. When you have become independent withthe physical therapy program, this will then be discontinued as a supervised program and you will be instructed to continue the physical therapy exercises at home. Your exercises are antunez to successful rehabilitation. You should gain full extension first, hopefully before hospital discharge, and gain 90 degrees flexion by one month post-op. Do the exercises daily, twice if preferred. DRIVING: Please do not drive for 4-6 weeks pending therapy progress. 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 It is therefore advised not to drive until after yourfirst office visit following surgery. FOLLOW-UP OFFICE VISIT: Harley Arciniega DO [facility] [address] [place] [address] Reviewed: 12-17[facility] History of Present illness Narrative* Harley Arciniega, - 11/18/2024 9:30 AM EDT Images from the original note were not included. @ENCDATE@ Donna Reyes Delores is a 74 y.o. female who presents for Pain of the Left Knee HPI: History of Present Illness The patient is a 74-year-old female who presents for discussion regarding surgical intervention on her left knee. Her pain continues to affect her activities of daily living and quality of life. She has expressed a preference to remain in the hospital overnight post-surgery. A history of deep vein thrombosis (DVT) in the left leg is noted follow a vein procedure a few years ago. This was managed temporarily with Eliquis. Currently not taking any anticoagulants. An upcoming appointment with Dr. Wheeler is scheduled for next week. SUBJECTIVE: MEDICATIONS: Current Outpatient Medications Medication Instructions Acetaminophen (TYLENOL ARTHRITIS PAIN PO) ASPIRIN 81 MG chewable tablet As needed calcium 200 MG tablet cholecalciferol (Vitamin D-3) 125 MCG (5000 UT) capsule Docusate Sodium (DSS) 100 MG capsule Every 24 hours Dorzolamide HCl-Timolol Mal PF 2-0.5 % solution 1 drop, Ophthalmic, 2 times daily dorzolamide-timolol (Cosopt) 2-0.5 % ophthalmic solution 1 drop, Both Eyes, 2 times daily Krill Oil 350 MG capsule Lumigan 0.01 % ophthalmic solution 1 drop, Both Eyes, Nightly Multiple Vitamin (MULTI VITAMIN DAILY PO) Potassium 99 MG tablet Every 24 hours prednisoLONE acetate (Pred-Forte) 1 % ophthalmic suspension tiZANidine (Zanaflex) 2 MG tablet ALLERGIES: Allergies Allergen Reactions Latex Rash SURGICAL HISTORY: Past Surgical History: Procedure Laterality Date ANKLE FRACTURE SURGERY 2003 CATARACT EXTRACTION, BILATERAL 2019 SECTION, LOW TRANSVERSE x2 CHOLECYSTECTOMY 2014 CHOLESTEATOMA EXCISION 2014 DENTAL SURGERY EYE SURGERY Left 2023 Epi membrane HARDWARE REMOVAL FOOT / ANKLE Right 11/13/2015 Partial Hardware removal rt ankle KNEE SURGERY 2009 Arthroscopy Knee KNEE SURGERY 2010 knee arthroscopy LASIK ORIF ANKLE FRACTURE Right 2003 ME GUM GRAFT 2 peridontal sx WRIST FRACTURE SURGERY Right FAMILY HISTORY: Family History Problem Relation Name Age of Onset Lung cancer Mother Heart disease Mother Heart disease Father SOCIAL HISTORY: Social History Tobacco Use Smoking status: Former Current packs/day: 0.00 Types: Cigarettes Smokeless tobacco: Never Tobacco comments: Last smoked: 20 years Vaping Use Vaping status: Never Used Substance Use Topics Alcohol use: Yes Comment: Occasional wine and alcohol Drug use: Never Depression: Not on file REVIEW OF SYMPTOMS: Review of Systems The review of systems, history and current medications list are all reviewed today. OBJECTIVE: Visit Vitals Ht 5' 4 Wt 208 lb BMI 35.70 kg/m Smoking Status Former BSA 2.06 m Physical Exam Alert and oriented, no acute distress. Mood and affect are appropriate. Ambulating independently. Gait is nonantalgic. is present. BILATERAL KNEES Both knees show about 10 degrees of flexion contracture. Left knee can flex to 100 degrees, right knee can flex to 104 degrees. Tender at the medial and lateral joint lines. No varus or valgus instability. Negative anterior posterior drawer. 5 out of 5 strength. HEENT The skull is normocephalic. There is no sign of trauma to the head or neck. Hearing is intact for conversational tones. Eye exam reveals conjugate gaze adequate for walking and transfers. CARDIAC The heart is regular rate and rhythm. RESPIRATORY Chest excursion is symmetric and unlabored with lungs clear. ABDOMEN Soft and non-distended. OSTEOPATHIC AND STRUCTURAL EXAM There is no gross evidence of clinically significant kyphosis, or lordosis, or significant leg length discrepancy in a sitting and standing position. Ortho Exam Results ASSESSMENT AND PLAN: I reviewed the history, physical exam, diagnostic studies, and diagnosis with the patient. Assessment & Plan 1. Advanced degenerative osteoarthrosis, bilateral knees The patient would like to proceed with a left total knee arthroplasty with Rock robotic arm assistance. The [employer] Medical platform will be utilized. Anticipate greater than 23 hour but less than 72 hour stay in the hospital following surgery. We will utilize tranexamic acid preoperatively and in traoperatively to minimize blood loss. We will enroll the patient in [facility] to assist with perioperative care. We will obtain a CT scan of the affected knee to assist with preoperative planning and intraoperative instrumentation. The CT scan will also allow for better assessment of the arthriticchanges including any potential subchondral deficiencies. The patient has significant joint dysfunction causing severe impairment of function associated withsevere discomfort to such a degree that relief of symptoms and limitations to function were not amenable to conservative non- surgical measures including rest, activity modification, a home exercise pr ogram, icing, NSAIDs, and injections. These methods failed to provide the patient with meaningful or long lasting relief. Based on subjective and objective evidence of anatomic and functional derangements that have imposed severe limitations on the patient in terms of mobility, comfort, and safety as documented in the chart, joint replacement surgery is both medically necessary and reasonable forthis patient. I reviewed the risk, benefits, complications, alternatives, and reasonable expectations. These risks include, but are not limited to, the risks of receiving an anesthetic, the risk of infection, the risk of neurovascular injury that could result in permanent disability, the risk of deep vein thrombosis that could result in potentially fatal pulmonary embolism. Any potential complication could require further surgical intervention. The patient acknowledges these risks and electively signed the consent form. At no time were any guarantees implied or stated. We will schedule the procedure at a mutually convenient time. The surgery will be performed under spinal anesthetic with regional nerve block. I am requesting the regional nerve block to assist with intraoperative and postoperative pain control. Light compression stockings or ROCK hose, either thigh-high or waist-high, recommended for a few weeks post-surgery to help with swelling and blood clot prevention. Post-surgery, baby aspirin will be prescribed for blood clot prevention. A total of 30 to 39 minutes was spent on this patient encounter which included chart review, check in, nurse triage, history taking, physical examination, diagnostic study review, patient counseling and discussion, entering information into the patient's medical record, and coordinating patient care. Diagnoses and all orders for this visit: Pre-op testing - Urinalysis with reflex microscopic; Future Harley Arciniega D.O. Attestation This note was created using voice recognition through [employer] artificial [employer]. documented in this encounterResearch Medical [id number] History of Present illness Narrative* Clay Torres DO - 11/02/2024 1:06 PM EDT Images from the original note were not included. Assessment/Plan documented in this encounterResearch Medical [id number] History of Present illness Narrative* Clay Torres DO - 09/29/2024 10:45 AM EST Images from the original note were not included. Assessment/Plan Diagnoses and all orders for this visit: 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 edema - Branch Retinal Vein Occlusion noted on examination. A strong association with systemic hypertension explained. Maintain regular follow up visits with PCP. Macular Edema 2/2 to branch retinal vein occlusion (BRVO) also noted. R/B/A/E provided for antiVEGF therpay today. Counseled patient on risk and symptoms of non-fatal vascular accidents such as cerebral stroke. Neovascular glaucoma (NVG)/proliferative complications risk discussed. Questions and concerns addressed. Instructed to call with any discomfort, loss of vision, discharge, questions or concerns. - Pt sees Dr. Velasquez, R.A.C. - Using Pred Acetate both eyes (OU) QID. Epiretinal membrane (ERM) of left eye - The condition and pathophysiology were described to the patient. An epiretinal membrane (ERM) hasthe potential to influence quality of vision including acuity as well as metamorphopsia. Advised observation at this time. Dry eyes, bilateral - Dry Eyes OU -- Environmental changes to minimize dryness and exposure and the use of artificial tears were recommended. Blepharitis of upper and lower eyelids of both eyes, unspecified type - Blepharitis, posterior type OU - The patient exhibits inspissated meibomian glands. Warm compresses, lid massage and lid scrubs were recommended. Steroid Response Glaucoma both eyes (OU): - intraocular pressure (IOP) continues to go up and down between seeing retina and myself. She is taking Pred Acetate both eyes (OU) QID and this is likely the cause of her elevated intraocular pressure (IOP). It has been difficulty expressing the need for ocular surface treatment so that topical glaucoma drops (gtts) can be executed to better manage the elevated intraocular pressure (IOP) found on exam. - Cont Bimatoprost (attempted to Rx Zioptan however kicked back) both eyes (OU) at bedtime. Pt cannot tolerate generic Latanoprost. - Restart Dorz/Dick left eye (OS) BID. (Had been seen in CT winter 2024 with intraocular pressure (IOP) of 9 both eyes (OU)) documented in this encounterResearch Medical [id number] History of Present illness Narrative* Clay Torres DO - 07/09/2024 9:00 AM EST Images from the original note were not included. Assessment/Plan Diagnoses and all orders for this visit: 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 edema - Branch Retinal Vein Occlusion noted on examination. A strong association with systemic hypertension explained. Maintain regular follow up visits with PCP. Macular Edema 2/2 to branch retinal vein occlusion (BRVO) also noted. R/B/A/E provided for antiVEGF therpay today. Counseled patient on risk and symptoms of non-fatal vascular accidents such as cerebral stroke. Neovascular glaucoma (NVG)/proliferative complications risk discussed. Questions and concerns addressed. Instructed to call with any discomfort, loss of vision, discharge, questions or concerns. - Pt sees Dr. Velasquez, R.A.C. - Using Pred Acetate both eyes (OU) QID. Epiretinal membrane (ERM) of left eye - The condition and pathophysiology were described to the patient. An epiretinal membrane (ERM) hasthe potential to influence quality of vision including acuity as well as metamorphopsia. Advised observation at this time. Dry eyes, bilateral - Dry Eyes OU -- Environmental changes to minimize dryness and exposure and the use of artificial tears were recommended. Blepharitis of upper and lower eyelids of both eyes, unspecified type - Blepharitis, posterior type OU - The patient exhibits inspissated meibomian glands. Warm compresses, lid massage and lid scrubs were recommended. Steroid Response Glaucoma both eyes (OU): - intraocular pressure (IOP) continues to go up and down between seeing retina and myself. She is taking Pred Acetate both eyes (OU) QID and this is likely the cause of her elevated intraocular pressure (IOP). It has been difficulty expressing the need for ocular surface treatment so that topical glaucoma drops (gtts) can be executed to better manage the elevated intraocular pressure (IOP) found on exam. - Cont Bimatoprost (attempted to Rx Zioptan however kicked back) both eyes (OU) at bedtime. Pt cannot tolerate generic Latanoprost. - Add Dorz/Dick both eyes (OU) BID. documented in this encounterResearch Medical [id number] History of Present illness Narrative* Clay Torres DO - 07/06/2024 8:45 AM EST Images from the original note were not included. Assessment/Plan Diagnoses and all orders for this visit: 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 edema - Branch Retinal Vein Occlusion noted on examination. A strong association with systemic hypertension explained. Maintain regular follow up visits with PCP. Macular Edema 2/2 to branch retinal vein occlusion (BRVO) also noted. R/B/A/E provided for antiVEGF therpay today. Counseled patient on risk and symptoms of non-fatal vascular accidents such as cerebral stroke. Neovascular glaucoma (NVG)/proliferative complications risk discussed. Questions and concerns addressed. Instructed to call with any discomfort, loss of vision, discharge, questions or concerns. - Pt sees Dr. Velasquez, R.A.C. - Using Pred Acetate both eyes (OU) QID. Epiretinal membrane (ERM) of left eye - The condition and pathophysiology were described to the patient. An epiretinal membrane (ERM) hasthe potential to influence quality of vision including acuity as well as metamorphopsia. Advised observation at this time. Dry eyes, bilateral - Dry Eyes OU -- Environmental changes to minimize dryness and exposure and the use of artificial tears were recommended. Blepharitis of upper and lower eyelids of both eyes, unspecified type - Blepharitis, posterior type OU - The patient exhibits inspissated meibomian glands. Warm compresses, lid massage and lid scrubs were recommended. Steroid Response Glaucoma both eyes (OU): - intraocular pressure (IOP) continues to go up and down between seeing retina and myself. She is taking Pred Acetate both eyes (OU) QID and this is likely the cause of her elevated intraocular pressure (IOP). It has been difficulty expressing the need for ocular surface treatment so that topical glaucoma drops (gtts) can be executed to better manage the elevated intraocular pressure (IOP) found on exam. Intraocular pressure (IOP) today was 28 and 36. - Begin Zioptan both eyes (OU) at bedtime. Pt cannot tolerate generic Latanoprost. documented in this encounterResearch Medical [id number] History of Present illness Narrative* Syl Villalba NP - 07/05/2024 10:00 AM EST Images from the original note were not included. Subjective Patient ID: Donna Estrella is a 74 y.o. female. RT Knee: 2 weeks and 6 days s/p last synojoynt injection with Dr Flores with 0% improvement. (06/01/24, 06/08/24, 06/15/24) DX with DVT 03/10/24, no longer taking eliquis. Previous depo medrol injection (02/16/24) with 50% improvement which only lasted about 1 week, notesshe started using a new elliptical bike unsure if this caused more pain. Notes she has been exercising her knee more. Pain x 03/2022 with recent flare up x January. NKI. Notes increased pain about a week ago, NKI. Walking with a cane. Pain across anterior knee. Denies radiation. Worse with prolonged WB. Taking TYL arthritis and TYL ES. Also taking tizanidine. Using ice, castor oil, frankensense and hemp combination. Denies N/T. Admits swelling. Denies popping. Admits cracking. Feels like her knee could possibly give out. Does not typically wake at HS. Wears a knee sleeve prn. Prior knee surgery included: knee scope with Dr. Flores in 2008 or 2009. Prior treatment(s) included: AP XR NOMS 07/03/21, TYL ES and TYL arthritis for pain with relief, CBDroll on, hemp cream, castor oil, stimulator, ice, knee sleeve, cane, frankincense, depo injx 06/25/23, mobic prn, xrays RT knee [facility] 10/30/23. depo medrol injection 10/30/23, 02/16/24, 03/31/24, synojoynt series 06/01/24, 06/08/24, 06/15/[address] with Dr Arciniega in September. Objective Ortho Exam Knee Musculoskeletal Exam Gait Assistive device: cane Inspection Right Erythema: none Effusion: mild Ecchymosis: none Deformity: none Palpation Right Crepitus: patellofemoral Tenderness: present Medial joint line: moderate Range of Motion Right Active extension: 0 Active flexion: 110 Neurovascular Right Posterior tibial: 2+ Assessment/Plan Encounter Diagnoses: ICD-10-CM 1. Arthritis of right knee M17.11 methylPREDNISolone (Medrol Dospak) 4 MG tablets 2. Chronic pain of right knee M25.561 G89.29 will try MDP, take as directed, no nsaids while taking MDP until 24 hrs after the last dose of MDP,may increase BP/HR Discussion of options, she notes she will try oral steroid, she needs to wait another 3 weeks priorto getting an injection, she notes they will be leaving till september in a few days. documented in this encounterResearch Medical [id number] Telephone encounter Note* Telephone Encounter - SERGIO Arellano - 07/02/2024 8:23 AM EST Looks like a patient Noe has been treating,, you can schedule with her for eval. [facility] Work Phone: [phone]) 970-443512-06-2024 Miscellaneous Notes* Telephone Encounter - SERGIO Arellano - 07/02/2024 8:23 AM EST Looks like a patient Noe has been treating,, you can schedule with her for eval. * Telephone Encounter - Ashley Aayush - 07/02/2024 8:05 AM EST Patient called in stating that she saw on 06/15. She stated that what was done did not work. She would like to schedule for a steroid injection in her knee if possible. Please advise. documented in this encounterResearch Medical [id number] Telephone encounter Note* Telephone Encounter - Ashley Aayush - 07/02/2024 8:05 AM EST Patient called in stating that she saw on 06/15. She stated that what was done did not work. She would like to schedule for a steroid injection in her knee if possible. Please advise. [facility] Medical [id number] History of Present illness Narrative* Adriana Flores, - 06/15/2024 10:30 AM ESTAssociated Order(s): L Inj/Asp: R knee Post-Procedure Diagnose(s): Arthritis of right knee Images from the original note were not included. Patient ID: Donna Estrella is a 74 y.o. female. L Inj/Asp: R knee on 06/15/2024 12:14 PM Indications: pain Details: 21 G needle, anterolateral approach Medications: 2 mL SynoJoynt 20 MG/2ML Outcome: tolerated well, no immediate complications Procedure, treatment alternatives, risks and benefits explained, specific risks discussed. Consent was given by the patient. Follow up as needed, any issues/concerns follow up sooner. Dr. Flores obtained history and examined the patient, I am acting as scribe for Dr. Flores/david I did advise the patient that I am leaving my current practice to practice in another state but my colleagues are willing to see her if she has any problems or concerns or if she desires a referral to another laboratory specialist we would be happy to make referral, she states she would like to continue her care here. documented in this [facility]11-12-2024 History of Present illness Narrative* Adriana Flores DO - 06/08/2024 10:00 AM ESTAssociated Order(s): L Inj/Asp: R knee Post-Procedure Diagnose(s): Arthritis of right knee Images from the original note were not included. Patient ID: Donna Estrella is a 74 y.o. female. L Inj/Asp: R knee on 06/08/2024 10:49 AM Indications: pain Details: 21 G needle, anterolateral approach Medications: 2 mL SynoJoynt 20 MG/2ML Outcome: tolerated well, no immediate complications Procedure, treatment alternatives, risks and benefits explained, specific risks discussed. Consent was given by the patient. documented in this [facility]11-05-2024 History of Present illness Narrative* Adriana Flores DO - 06/01/2024 9:30 AM ESTAssociated Order(s): L Inj/Asp: R knee Post-Procedure Diagnose(s): Arthritis of right knee Images from the original note were not included. HISTORY OF PRESENT ILLNESS: Donna Estrella is an 74 y.o. @ female. Chief complaint RT knee RT Knee: would like to discuss visco Pain x 03/2022 with recent flare up x January 2024. NKI. Pain is anterior medial. She has good and bad days. worse with sit to stand and walking. Minimal swelling. Denies locking. Admits some cracking. Wakes at HS occas due to pain. Last depo injx 03/31 per Noe, she notes it took 1 week for the injection to help, 80% relief Taking TYL arthritis for pain and tizanidine prn at night to help her sleep. Using ice, CBD roll on, icy hot, hemp cream, castor oil, stimulator, frankincense. Uses knee sleeve that she wears prn, with some relief. Prior knee surgery included: knee scope with Dr. Flores in 2008 or 2009. DX with DVT 03/10/24, taking eliquis. Prior treatment(s) included: AP XR NOMS 07/03/21, TYL ES and TYL arthritis for pain with relief, CBDroll on, hemp cream, castor oil, stimulator, ice, knee sleeve, cane, frankincense, depo injx 06/25/23, mobic prn, xrays RT knee [facility] 10/30/23. depo medrol injection 10/30/23, 02/16/24, 03/31/24 MEDICATION: Current Outpatient Medications on File Prior to Visit Medication Sig Dispense Refill Acetaminophen (TYLENOL ARTHRITIS PAIN PO) Tylenol Arthritis Pain apixaban (Eliquis) 5 MG tablet Twice daily ASPIRIN 81 MG chewable tablet if needed. calcium 200 MG tablet Calcium cholecalciferol (Vitamin D-3) 125 MCG (5000 UT) capsule as directed Orally Docusate Sodium (DSS) 100 MG capsule 1 (one) time each day at the same time. Krill Oil 350 MG capsule as directed Orally latanoprost (Xalatan) 0.005 % ophthalmic solution Administer 1 drop into both eyes at bedtime 2.5 mL 6 Multiple Vitamin (MULTI VITAMIN DAILY PO) Multi Vitamin Potassium 99 MG tablet 1 (one) time each day at the same time. prednisoLONE acetate (Pred-Forte) 1 % ophthalmic suspension PUT 1 DROP IN LEFT EYE 4 TIMES A DAY tiZANidine (Zanaflex) 2 MG tablet TAKE 1 TABLET ORALLY DAILY AT BEDTIME FOR 30 DAYS [DISCONTINUED] acetaminophen (Tylenol Extra Strength) 500 MG tablet every 6 (six) hours. [DISCONTINUED] predniSONE (Deltasone) 20 MG tablet As Directed [DISCONTINUED] tiZANidine (Zanaflex) 2 MG capsule Take by mouth No current facility-administered medications on file prior to visit. MEDICAL HISTORY: Past Medical History: Diagnosis Date BRVO (branch retinal vein occlusion) Cataract DVT (deep venous thrombosis) ([facility]) 03/10/2024 LT leg Epiretinal membrane (ERM) of left eye Osteopenia PVD (posterior vitreous detachment) Thalassemia ALLERGIES: Allergies Allergen Reactions Latex Rash VITALS: Visit Vitals Smoking Status Former PHYSICAL EXAM: Ortho Exam RIGHT KNEE ROM 15-95 Medial joint line tenderness Skin intact ASSESSMENT: ICD-10-CM 1. Arthritis of right knee M17.11 L Inj/Asp: R knee 2. Chronic pain of right knee M25.561 G89.29 L Inj/Asp: R knee on 06/01/2024 9:48 AM Indications: pain Details: 21 G needle, anterolateral approach Medications: 2 mL SynoJoynt 20 MG/2ML Outcome: tolerated well, no immediate complications Procedure, treatment alternatives, risks and benefits explained, specific risks discussed. Consent was given by the patient. PLAN: Injection requested. 2ml of Synojoynt injected into Right knee using aseptic technique, pt tolerated well. Follow up in one week. Dr. Flores obtained history and examined the patient, I am actingas scribe for Dr. Flores/david. I did advise the patient that I am leaving my current practice to practice in another state but my colleagues are willing to see her if she has any problems or concerns or if she desires a referral to another laboratory specialist we would be happy to make referral, she states she would like to continue her care here. Ignacio Flores D.O. documented in this encounterResearch Medical [id number] Hospital Discharge instructions Patient Education 05/12/2024 10:51:15 Cystoscopy Cystoscopy Cystoscopy is a procedure that is used to help diagnose and sometimes treat conditions that affect the lower urinary tract. The lower urinary tract includes the bladder and the urethra. The urethra is the tube that drains urine from the bladder. Cystoscopy is done using a thin, tube-shaped instrument with a light and camera at the end (cystoscope). The cystoscope may be hard or flexible, depending on the goal of the procedure. The cystoscope is inserted through the urethra, into the bladder. Cystoscopy may be recommended if you have: Urinary tract infections that keep coming back. Blood in the urine (hematuria). An inability to control when you urinate (urinary incontinence) or an overactive bladder. Unusual cells found in a urine sample. A blockage in the urethra, such as a urinary stone. Painful urination. An abnormality in the bladder found during an intravenous pyelogram (IVP) or CT scan. Cystoscopy may also be done to remove a sample of tissue to be examined under a microscope (biopsy). Tell a health care provider about: Any allergies you have. All medicines you are taking, including vitamins, herbs, eye drops, creams, and wabo-jfi-jmnszvz medicines. Any problems you or family members have had with anesthetic medicines. Any blood disorders you have. Any surgeries you have had. Any medical conditions you have. Whether you are or may be . What are the risks? Generally, this is a safe procedure. However, problems may occur, including: Infection. Bleeding. Allergic reactions to medicines. Damage to other structures or organs. What happens before the procedure? Medicines Ask your health care provider about: Changing or stopping your regular medicines. This is especially important if you are taking diabetes medicines or blood thinners. Taking medicines such as aspirin and ibuprofen. These medicines can thin your blood. Do not take these medicines unless your health care provider tells you to take them. Taking jicd-phn-ibwcqwu medicines, vitamins, herbs, and supplements. Tests You may have an exam or testing, such as: X-rays of the bladder, urethra, or kidneys. CT scan of the abdomen or pelvis. Urine tests to check for signs of infection. General instructions Follow instructions from your health care provider about eating or drinking restrictions. Ask your health care provider what steps will be taken to help prevent infection. These steps may include: ?Washing skin with a germ-killing soap. ?Taking antibiotic medicine. Plan to have a responsible adult take you home from the hospital or clinic. What happens during the procedure? You will be given one or more of the following: ?A medicine to help you relax (sedative). ?A medicine to numb the area (local anesthetic). The area around the opening of your urethra will be cleaned. The cystoscope will be passed through your urethra into your bladder. Germ-free (sterile) fluid will flow through the cystoscope to fill your bladder. The fluid will stretch your bladder so that your health care provider can clearly examine your bladder macario. Your doctor will look at the urethra and bladder. Your doctor may take a biopsy or remove stones. The cystoscope will be removed, and your bladder will be emptied. The procedure may vary among health care providers and hospitals. What can I expect after the procedure? After the procedure, it is common to have: Some soreness or pain in your abdomen and urethra. Urinary symptoms. These include: ?Mild pain or burning when you urinate. Pain should stop within a few minutes after you urinate. This may last for up to 1 week. ?A small amount of blood in your urine for several days. ?Feeling like you need to urinate but producing only a small amount of urine. Follow these instructions at home: Medicines Take izyq-zjc-tmdmdqm and prescription medicines only as told by your health care provider. If you were prescribed an antibiotic medicine, take it as told by your health care provider. Do notstop taking the antibiotic even if you start to feel better. General instructions Return to your normal activities as told by your health care provider. Ask your health care provider what activities are safe for you. If you were given a sedative during the procedure, it can affect you for several hours. Do not drive or operate machinery until your health care provider says that it is safe. Watch for any blood in your urine. If the amount of blood in your urine increases, call your healthcare provider. Follow instructions from your health care provider about eating or drinking restrictions. If a tissue sample was removed for testing (biopsy) during your procedure, it is up to you to get your test results. Ask your health care provider, or the department that is doing the test, when yourresults will be ready. Drink enough fluid to keep your urine pale yellow. Keep all follow-up visits. This is important. Contact a health care provider if: You have pain that gets worse or does not get better with medicine, especially pain when you urinate. You have trouble urinating. You have more blood in your urine. Get help right away if: You have blood clots in your urine. You have abdominal pain. You have a fever or chills. You are unable to urinate. Summary Cystoscopy is a procedure that is used to help diagnose and sometimes treat conditions that affect the lower urinary tract. Cystoscopy is done using a thin, tube-shaped instrument with a light and camera at the end. After the procedure, it is common to have some soreness or pain in your abdomen and urethra. Watch for any blood in your urine. If the amount of blood in your urine increases, call your healthcare provider. If you were prescribed an antibiotic medicine, take it as told by your health care provider. Do notstop taking the antibiotic even if you start to feel better. This information is not intended to replace advice given to you by your health care provider. Make sure you discuss any questions you have with your health care provider. Document Revised: 03/27/2022 Document Reviewed: 02/23/2021 [employer] Patient Education 2023 [employer]. 05/12/2024 10:39:08 Kegel Exercises Kegel Exercises Kegel exercises can help strengthen your pelvic floor muscles. The pelvic floor is a group of muscles that support your rectum, small intestine, and bladder. In females, pelvic floor muscles also help support the uterus. These muscles help you control the flow of urine and stool (feces). Kegel exercises are painless and simple. They do not require any equipment. Your provider may suggest Kegel exercises to: Improve bladder and bowel control. Improve sexual response. Improve weak pelvic floor muscles after surgery to remove the uterus (hysterectomy) or after , in females. Improve weak pelvic floor muscles after prostate gland removal or surgery, in males. Kegel exercises involve squeezing your pelvic floor muscles. These are the same muscles you squeezewhen you try to stop the flow of urine or keep from passing gas. The exercises can be done while sitting, standing, or lying down, but it is best to vary your position. Ask your health care provider which exercises are safe for you. Do exercises exactly as told by your health care provider and adjust them as directed. Do not begin these exercises until told by your health care provider. Exercises How to do Kegel exercises: 1.Squeeze your pelvic floor muscles tight. You should feel a tight lift in your rectal area. If youare a female, you should also feel a tightness in your vaginal area. Keep your stomach, buttocks, and legs relaxed. 2.Hold the muscles tight for up to 10 seconds. 3.Breathe normally. 4.Relax your muscles for up to 10 seconds. 5.Repeat as told by your health care [...] with your health care provider. Document Revised: 11/22/2021 Document Reviewed: 11/22/2021 [employer] Patient Education 2023 [employer]. Follow Up Care 05/12/2023 11:08:20 With:Lorne GONZALEZ, TEDDY Gonzalez, URO Address: [address], [place] [address] [phone] When: Unknown [facility] 10-16-2024 NotePatient Education Obstetrics and Gynecology Kegel Exercises Kegel exercises can help strengthen your pelvic floor muscles. The pelvic floor is a group of muscles that support your rectum, small intestine, and bladder. In females, pelvic floor muscles also help support the uterus. These muscles help you control the flow of urine and stool (feces). Kegel exercises are painless and simple. They do not require any equipment. Your provider may suggest Kegel exercises to: ? Improve bladder and bowel control. ? Improve sexual response. ? Improve weak pelvic floor muscles after surgery to remove the uterus (hysterectomy) or after , in females. ? Improve weak pelvic floor muscles after prostate gland removal or surgery, in males. Kegel exercises involve squeezing your pelvic floor muscles. These are the same muscles you squeezewhen you try to stop the flow of urine or keep from passing gas. The exercises can be done while sitting, standing, or lying down, but it is best to vary your position. Ask your health care provider which exercises are safe for you. Do exercises exactly as told by your health care provider and adjust them as directed. Do not begin these exercises until told by your health care provider. Exercises How to do Kegel exercises: 1. Squeeze your pelvic floor muscles tight. You should feel a tight lift in your rectal area. If you are a female, you should also feel a tightness in your vaginal area. Keep your stomach, buttocks, and legs relaxed. 2. Hold the muscles tight for up to 10 seconds. 3. Breathe normally. 4. Relax your muscles for up to 10 seconds. 5. Repeat as told by your health care provider. Repeat this exercise daily as told by your health care provider. Continue to do this exercise for at least 4?6 weeks, or for as long as told by your health care provider. You may be referred to a physical therapist who can help you learn more about how to do Kegel exercises. Depending on your condition, your health care provider may recommend: ? Varying how long you squeeze your muscles. ? Doing several sets of exercises every day. ? Doing exercises for several weeks. ? Making Kegel exercises a part of your regular exercise routine. This information is not intended to replace advice given to you by your health care provider. Make sure you discuss any questions you have with your health care provider. Document Revised: 11/22/2021 Document Reviewed: 11/22/2021 [employer] Patient Education ? 2023 [employer]. Urology Cystoscopy Cystoscopy is a procedure that is used to help diagnose and sometimes treat conditions that affect the lower urinary tract. The lower urinary tract includes the bladder and the urethra. The urethra is the tube that drains urine from the bladder. Cystoscopy is done using a thin, tube-shaped instrument with a light and camera at the end (cystoscope). The cystoscope may be hard or flexible, depending on the goal of the procedure. The cystoscope is inserted through the urethra, into the bladder. Cystoscopy may be recommended if you have: ? Urinary tract infections that keep coming back. ? Blood in the urine (hematuria). ? An inability to control when you urinate (urinary incontinence) or an overactive bladder. ? Unusual cells found in a urine sample. ? A blockage in the urethra, such as a urinary stone. ? Painful urination. ? An abnormality in the bladder found during an intravenous pyelogram (IVP) or CT scan. Cystoscopy may also be done to remove a sample of tissue to be examined under a microscope (biopsy). Tell a health care provider about: ? Any allergies you have. ? All medicines you are taking, including vitamins, herbs, eye drops, creams, and xswq-ebo-upirlfb medicines. ? Any problems you or family members have had with anesthetic medicines. ? Any blood disorders you have. ? Any surgeries you have had. ? Any medical conditions you have. ? Whether you are or may be . What are the risks? Generally, this is a safe procedure. However, problems may occur, including: ? Infection. ? Bleeding. ? Allergic reactions to medicines. ? Damage to other structures or organs. What happens before the procedure? Medicines Ask your health care provider about: ? Changing or stopping your regular medicines. This is especially important if you are taking diabetes medicines or blood thinners. ? Taking medicines such as aspirin and ibuprofen. These medicines can thin your blood. Do not take these medicines unless your health care provider tells you to take them. ? Taking ztzr-prv-vcetxbk medicines, vitamins, herbs, and supplements. Tests You may have an exam or testing, such as: ? X-rays of the bladder, urethra, or kidneys. ? CT scan of the abdomen or pelvis. ? Urine tests to check for signs of infection. General instructions ? Follow instructions from your health care provider about eating or drinking restrictions (more content not included)...[facility]09-18-2024 NoteRight Eye Reliability was good. Progression has been stable. Foveal threshold was normal. Findings include non-specific defects. Left Eye Reliability was good. Progression has been stable. Foveal threshold was normal. Findings include non-specific defects.Research Medical [id number] History of Present illness Narrative* Clay Torres, DO - 04/14/2024 8:30 AM EDT Images from the original note were not included. Assessment/Plan Diagnoses and all orders for this visit: 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 edema - Branch Retinal Vein Occlusion noted on examination. A strong association with systemic hypertension explained. Maintain regular follow up visits with PCP. Macular Edema 2/2 to branch retinal vein occlusion (BRVO) also noted. R/B/A/E provided for antiVEGF therpay today. Counseled patient on risk and symptoms of non-fatal vascular accidents such as cerebral stroke. Neovascular glaucoma (NVG)/proliferative complications risk discussed. Questions and concerns addressed. Instructed to call with any discomfort, loss of vision, discharge, questions or concerns. - Pt sees Dr. Velasquez, R.A.C. - Using Pred Acetate both eyes (OU) QID. Epiretinal membrane (ERM) of left eye - The condition and pathophysiology were described to the patient. An epiretinal membrane (ERM) hasthe potential to influence quality of vision including acuity as well as metamorphopsia. Advised observation at this time. Dry eyes, bilateral - Dry Eyes OU -- Environmental changes to minimize dryness and exposure and the use of artificial tears were recommended. Blepharitis of upper and lower eyelids of both eyes, unspecified type - Blepharitis, posterior type OU - The patient exhibits inspissated meibomian glands. Warm compresses, lid massage and lid scrubs were recommended. Glaucoma Suspect both eyes (OU): - Glaucoma suspect OU - Continue observation, following the findings of IOP, C/D ratio, HVF and OCTONH. Encouraged patient compliance. - This is likely consequential to the usage of topical steroids in both eyes (OU). These have been started and used under the guidance of retina. I had started her on Latanoprost however she had a local reaction c/w OSD. We discussed the greater usage of tears if we need to restart that med. For right now will hold. She also understands that when she sees retina, she should inquire each time how her intraocular pressure (IOP) is doing. This way she's not having to come in every month to see me. documented in this encounterResearch Medical [id number] History of Present illness Narrative* Adriana Flores DO - 04/13/2024 1:00 PM EDT Images from the original note were not included. HISTORY OF PRESENT ILLNESS: Donna Estrella is an 74 y.o. @ female. Chief complaint RT knee pain RT Knee: 2 weeks s/p depo injx 03/31 per Noe, she notes it took 1 week for the injection to help, 80% relief DX with DVT 03/10/24, taking eliquis. Previous depo medrol injection (02/16/24) with 50% improvement which only lasted about 1 week, notesshe started using a new elliptical bike unsure if this caused more pain. Notes she has been exercising her knee more. Pain x 03/2022 with recent flare up x January. NKI. Pain is anterior media. Sometimes pain will go intothigh and anterior eagle. worse with sit to stand and walking. Notes she has been trying to walk more. Minimal swelling. Denies locking. Admits some cracking. Wakes at HS occas due to pain. Taking TYL arthritis for pain and tizanidine at night to help her sleep. Using ice, CBD roll on, icy hot, hemp cream, castor oil, stimulator, frankincense. Uses knee sleeve that she wears prn, with some relief. Prior knee surgery included: knee scope with Dr. Flores in 2008 or 2009. Prior treatment(s) included: AP XR [facility] 07/03/21, TYL ES and TYL arthritis for pain with relief, CBDroll on, hemp cream, castor oil, stimulator, ice, knee sleeve, cane, frankincense, depo injx 06/25/23, mobic prn, xrays RT knee [facility] 10/30/23. depo medrol injection 10/30/23, 02/16/24, 03/31/24 MEDICATION: Current Outpatient Medications on File Prior to Visit Medication Sig Dispense Refill Acetaminophen (TYLENOL ARTHRITIS PAIN PO) Tylenol Arthritis Pain acetaminophen (Tylenol Extra Strength) 500 MG tablet every 6 (six) hours. apixaban (Eliquis) 5 MG tablet Twice daily ASPIRIN 81 MG chewable tablet if needed. calcium 200 MG tablet Calcium cholecalciferol (Vitamin D-3) 125 MCG (5000 UT) capsule as directed Orally Docusate Sodium (DSS) 100 MG capsule 1 (one) time each day at the same time. Krill Oil 350 MG capsule as directed Orally latanoprost (Xalatan) 0.005 % ophthalmic solution Administer 1 drop into both eyes at bedtime 2.5 mL 6 Multiple Vitamin (MULTI VITAMIN DAILY PO) Multi Vitamin Potassium 99 MG tablet 1 (one) time each day at the same time. prednisoLONE acetate (Pred-Forte) 1 % ophthalmic suspension PUT 1 DROP IN LEFT EYE 4 TIMES A DAY predniSONE (Deltasone) 20 MG tablet As Directed tiZANidine (Zanaflex) 2 MG capsule Take by mouth tiZANidine (Zanaflex) 2 MG tablet TAKE 1 TABLET ORALLY DAILY AT BEDTIME FOR 30 DAYS No current facility-administered medications on file prior to visit. MEDICAL HISTORY: Past Medical History: Diagnosis Date BRVO (branch retinal vein occlusion) Cataract DVT (deep venous thrombosis) ([facility]) 03/10/2024 LT leg Epiretinal membrane (ERM) of left eye Osteopenia PVD (posterior vitreous detachment) Thalassemia ALLERGIES: Allergies Allergen Reactions Latex Rash VITALS: Visit Vitals Smoking Status Former PHYSICAL EXAM: Ortho Exam RIGHT KNEE ROM 20-95 Crepitus IMAGING: October 30, 2023 x-rays from the [place] [facility] AP weight-bearing bilateral knees lateral and sunrise of the right knee demonstrate joint space narrowing in all 3 compartments with marginal osteophytes subchondral sclerosis. Medial compartment collapse of the zvjv-sv-qgmg. Large osteophytes in the superior inferior poles of patella. On the weight-bearing view there is severe arthritic changes of theleft knee as well. Impression: Advanced osteoarthritis of the right knee Chacorta Flores D.O. ASSESSMENT: ICD-10-CM 1. Arthritis of right knee M17.11 2. Chronic pain of right knee M25.561 G89.29 PLAN: I explained the diagnosis and reviewed treatment options including injections, visco supplements, pain management and ultimately replacement. I answered all of the patient's questions. Follow up in 6weeks consider visco vs other, any issues/concerns follow up sooner. Dr. Flores obtained history and examined the patient, I am acting as scribe for Dr. Flores/david Flores D.O. documented in this encounterResearch Medical [id number] History of Present illness Narrative* Syl Villalba, GORDON - 03/31/2024 8:30 AM EDTAssociated Order(s): L Inj/Asp: L knee Post-Procedure Diagnose(s): Arthritis of right knee HISTORY OF PRESENT ILLNESS: Donna Estrella is an 73 y.o. @ female. CHIEF COMPLAINT RT knee pain RT Knee: *increased pain 6 weeks and 2 days s/p depo medrol injection (02/16/24) with 50% improvement which only lasted about1 week, notes she started using a new elliptical bike unsure if this caused more pain. Notes she has been exercising her knee more. Pain x 03/2022. NKI. Pain is anterior medial, pain is a constant ache. Sometimes pain will go into thigh and anterior eagle. Pain is worse with sit to stand and walking. Notes she has been trying to walk more. Pain at rest 6-7/10. Goes to 10/10 going from sit to stand. Admits minimal swelling. Notes her kneefeels warm to the touch. Taking TYL arthritis for pain and tizanidine at night to help her sleep. Using ice, CBD roll on, icy hot, hemp cream, castor oil, stimulator, frankincense. Uses knee sleeve that she wears prn, with some relief. Denies locking. Admits some cracking. Notes last week she woke up at night from the pain. Prior knee surgery included: knee scope with Dr. Flores in 2008 or 2009. Prior treatment(s) included: AP XR [facility] 07/03/21, TYL ES and TYL arthritis for pain with relief, CBDroll on, hemp cream, castor oil, stimulator, ice, knee sleeve, cane, frankincense, depo injx 06/25/23, mobic prn, depo medrol injection 10/30/23, depo medrol injection 02/16/24, xrays right knee [facility] 10/30/23 PHYSICAL EXAM: Knee Musculoskeletal Exam Inspection Right Erythema: none Effusion: mild Edema: none Ecchymosis: none Palpation Right Crepitus: patellofemoral Tenderness: present Medial joint line: moderate Range of Motion Right Active extension: 5 Active flexion: 110 L Inj/Asp: L knee on 03/31/2024 9:05 AM Indications: pain Details: 20 G needle, anterolateral approach Medications: 40 mg methylPREDNISolone acetate 40 MG/ML UTILIZING ASEPTIC TECHNIQUE PT GIVEN INJECTION IN LEFT KNEE, NEUROVASC INTACT S/P INJ, TOLERATED WELL Procedure, treatment alternatives, risks and benefits explained, specific risks discussed. Consent was given by the patient. ASSESSMENT: ICD-10-CM 1. Chronic pain of right knee M25.561 G89.29 2. Arthritis of right knee M17.11 Discussion of options, pt notes she would like an injection, side effects of bleeding and infectiondiscussed, would like to proceed with the injection, using aspectic technique 40 mg of depo medrol was injected into the right lateral knee, pt tolerated well, bandaid applied, may do activities as tolerated, f/u in 2 weeks. We discussed viscosupplementation and she notes she would prefer a steroidinjection. She has been on eliquis for the past 1 month. documented in this encounterResearch Medical [id number] Evaluation note* Diagnosis Onset Date Resolution Status Admit Date Chronic venous insufficiency acute March 24, 2024 10:00am DVT (deep venous thrombosis) resolve d March 24, 2024 10:00am Left leg swelling noneactive March 24, 2024 10:00am Chronic venous insufficiency acute June 17, 2024 9:33am H/O deep venous thrombosis acute June 17, 2024 9:33am Medicare annual wellness visit, subsequent acute June 17, 2024 9:33am Nicotine dependence, cigarettes, in remission acute 2023 9:33am Screening mammogram for breast cancer acute June 17, 9:33am [facility] Work Phone: [phone] 137-273105-10-2024 History of Present illness Narrative* Rosmery Guillermo, [employer] MACHINE OPERATOR-TRIAL CONSULTANT - 12/05/2023 12:00 PM EDT Images from the original note were not included. Chief Complaint: Rectal bleeding History of Present Illness Donna Estrella is a 73 y.o. female who presents to the office for rectal bleeding. Her is with her today. She was referred by Dr. Wheeler. She states 1 month ago she had an episode of bright redblood in the toilet bowl. This happened 1 other time prior to that. She was taking meloxicam at that time and has since stopped. She states she has a tendency to get constipated. She takes stool softeners as needed. She denies diarrhea, abdominal pain, black stools or unintentional weight loss. Her last colonoscopy was in 2017 at the [facility] with Dr. Jett. It revealed hemorrhoids, but was otherwise normal. Review of Systems Constitutional: Negative for fever and unexpected weight change. HENT: Negative for trouble swallowing. Respiratory: Negative for shortness of breath. Cardiovascular: Negative for chest pain. Gastrointestinal: Positive for constipation and blood in stool. Negative for nausea, vomiting, abdominal pain, diarrhea and black tarry stool. Genitourinary: Negative for dysuria and difficulty urinating. Musculoskeletal: Negative for gait problem. Skin: Negative for rash and wound. Neurological: Negative for dizziness, weakness and light-headedness. Hematological: Does not bruise/bleed easily. Psychiatric/Behavioral: Negative for confusion. Past Medical History: Diagnosis Date Colon polyp COPD (chronic obstructive pulmonary disease) ([facility]) Hearing loss bilateral hearing aids Visual impairment glasses Past Surgical History: Procedure Laterality Date ANKLE FRACTURE SURGERY Right SECTION x2 CHOLECYSTECTOMY COLONOSCOPY 2009+2012 COLONOSCOPY 02/12/2017 KNEE SURGERY Bilateral MOUTH SURGERY x2 WRIST SURGERY Right Allergies Allergen Reactions Latex Rash Current Outpatient Medications: aspirin 81 mg, Take 1 tablet (81 mg total) by mouth daily as needed for pain., Disp: , Rfl: docusate sodium (STOOL SOFTENER) 100 mg capsule, Take 1 capsule (100 mg total) by mouth in the morning., Disp: , Rfl: KRILL/OM3/DHA/EPA/OM6/LIP/ASTX (KRILL OIL, OMEGA 3 AND 6, ORAL), Take by mouth daily., Disp: , Rfl: MULTIVIT-MINERALS/FERROUS FUM (MULTI VITAMIN ORAL), Take by mouth daily., Disp: , Rfl: qvbho-7s-kww-epa-fish oil-D3 (VITAMIN-D + OMEGA-3) 350 mg-400 mg- 1,000 unit capsule, Take by mouthdaily., Disp: , Rfl: POTASSIUM GLUCONATE ORAL, Take by mouth daily., Disp: , Rfl: prednisoLONE acetate (PRED FORTE) 1 % ophthalmic suspension, Administer 1 drop into the left eye inthe morning and 1 drop at noon and 1 drop in the evening and 1 drop before bedtime., Disp: , Rfl: tiZANidine (ZANAFLEX) 2 MG capsule, Take 1 capsule (2 mg total) by mouth daily as needed., Disp: , Rfl: peg 3350-sod sulf,qyxh-eoj-kio 178.7-7.3-0.5 gram recon soln, Take 1 kit by mouth once daily for 1 dose. Please see instructional sheet given by physicians office., Disp: 1 each, Rfl: 0 Social History Socioeconomic History Marital status: Spouse name: Not on file Number of children: Not on file Years of education: Not on file Highest education level: Not on file Occupational History Not on file Tobacco Use Smoking status: Former Current packs/day: 0.00 Types: Cigarettes Quit date: 07/28/2006 Years since quittin.3 Smokeless tobacco: Current Vaping Use Vaping status: Never Used Substance and Sexual Activity Alcohol use: Yes Alcohol/week: 6.0 standard drinks of alcohol Types: 2 Glasses of wine, 3 Cans of beer, 1 Shots of liquor per week Comment: socially Drug use: No Sexual activity: Yes Partners: Male Other Topics Concern Not on file Social History Narrative Not on file Social Determinants of Health Financial Resource Strain: Not on file Food Insecurity: Unknown (12/05/2023) Hunger Screening Food Insecurity - Worry: Never True Food Insecurity - Inability: Not on file Transportation Needs: Not on file Physical Activity: Not on file Stress: Not on file Social Connections: Not on file Interpersonal Safety: Not on file Housing Instability: Not on file Family History Problem Relation Age of Onset Lung cancer Mother Heart disease Mother Heart disease Father Breast cancer Sister Objective Physical Exam Constitutional: General: She is not in acute distress. Appearance: Normal appearance. She is obese. She is not ill-appearing. HENT: Head: Normocephalic and atraumatic. Mouth/Throat: Mouth: Mucous membranes are moist. Eyes: Pupils: Pupils are equal, round, and reactive to light. Cardiovascular: Rate and Rhythm: Normal rate and regular rhythm. Pulmonary: Effort: Pulmonary effort is normal. No respiratory distress. Breath sounds: Normal breath sounds. Abdominal: General: Bowel sounds are normal. There is no distension. Palpations: Abdomen is soft. Tenderness: There is no abdominal tenderness. There is no guarding. Musculoskeletal: General: Normal range of motion. Skin: General: Skin is warm and dry. Neurological: Mental Status: She is alert and oriented to person, place, and time. Mental status is at baseline. Vital Signs: Blood pressure 137/71, pulse 81, height 163.8 cm (5' 4.5 ), weight 97.7 kg (215 lb 6.4oz). Respiratory Source: No data recorded Admission Weight: Weight: 97.7 kg (215 lb 6.4 oz) Labs No results found for: WBC , HGB , HCT , MCV , PLT No results found for: GLU , CALCIUM , NA , K , CO2 , CL , BUN , CREATININE No results found for: AMYLASE No results found for: LIPASE No results found for: ALT , AST , GGT , ALKPHOS , LABBILI No results found for: INR , PROTIME Assessment Donna Estrella is a 73 y.o.female with rectal bleeding. Plan Colonoscopy with possible biopsy and/or polypectomy. Risks, benefits, and alternatives discussed with patient. Educated on bowel evacuation preparation. Patient verbalizes understanding and wishes toproceed. Hold aspirin and NSAIDs 7 days prior. Evaluation included: Preparing to see the patient (e.g., review of tests) Obtaining and/or reviewing separately obtained history Performing a medically appropriate examination and/or evaluation Counseling and educating the patient/family/caregiver Referring and communicating with other health wound care rn Rectal bleeding [K62.5] LEONARDA OHARA [facility] [place] This note was created with the assistance of a speech recognition program. While intending to generate a timely document that accurately reflects the content of the visit, no guarantee can be provided that every grammatical or spelling mistake has been or will be identified or corrected. Thank you for your understanding. LEONARDA Ohara 12/05/23 1235 documented in this encounterMer[facility] Hospital Discharge instructions Patient Education 05/07/2023 08:46:21 Dietary Guidelines [...] about 300 mg of calcium at each meal.Foods that contain 200 500 mg of calcium a serving include: ?8 oz (237 mL) of milk, vsejhay-kxnkhuxvccgx-euuqw milk, and calcium- fortifiedfruit juice. Calcium-fortified means that calcium has been [...] the table and allow each person to addhis or her own salt to taste. Use vegetable protein, such as beans, textured vegetable protein (TVP), or tofu, instead of meat inpasta, casseroles, and soups. Meal planning Eat less salt, if told by your dietitian. To do this: ?Avoid eating processed or pre-made food. ?Avoid eating fast food. Eat less animal protein, including cheese, meat, poultry, or fish, if told by your dietitian. To dothis: ?Limit the number of times you have [...] ?Spinach (cooked), rhubarb, beets, sweet potatoes, and Citizen [place] chard. ?Peanuts. ?Potato chips, english fries, and baked potatoes with skin on. ?Nuts and nut products. ?Chocolate. If you regularly take a diuretic medicine, make sure to eat at least 1 or 2 servings of fruits or vegetables that are high in potassium each day. These include: ?Avocado. ?Banana. ?Martin, prune, carrot, or tomato juice. ?Baked potato. [...] taking daily supplements. You may be told thefollowing depending on your health and the cause of your kidney stones: ?Not to take supplements with vitamin C. ?To take a calcium supplement. ?To take a daily probiotic supplement. ?To take other supplements such as magnesium, fish oil, or vitamin B6. Take oxqr-amc-vktpotv and prescription medicines only as told by [...] Casseroles. Pizza. Lasagna. Frozen meals. Potato chips. Mexican fries. The items listed above may not be a complete list of foods and beverages you should limit. Contact a dietitian for more information. What foods should I avoid? Talk to your dietitian about specific foods you should avoid based on the type of kidney stones youhave and your overall health. Fruits Grapefruit. The item listed above may not be a complete list of foods and beverages you should avoid. Contact adietitian for more information. Summary Kidney stones are [...] provider. Document Revised: 03/25/2022 Document Reviewed: 03/25/2022 [employer] Patient Education 2022 [employer]. Follow Up Care 05/01/2022 08:32:42 With:Lorne GONZALEZ, TEDDY Gonzalez, URO Address: When: Unknown Comments:Gerald Barragan Ureteroscopy/LaserLitho [facility] 09-26-2023 Evaluation note* Encounter Date Diagnosis Assessment Notes Treatment Notes Treatment Clinical Notes Mar, Acute left-sided low back pain without sciatica (ICD-10 - M54.50) Push fluids ER or call office w/ recurrent flank pain or hematuria Mar, Gross hematuria (ICD-10 - R31.0) Push fluids CT abd/pelvis to r/o renal tumor, renal stone, hydronephrosis f/u for hematuria evaluation [email or web address] Other 06-05-2023 Evaluation note* Encounter Date Diagnosis Assessment Notes Treatment Notes Treatment Clinical Notes Dec, Cervical spondylosis (ICD-10 - M47.812) ROM exercises, ice/heat and rest. Begin NSAIDs and muscles relaxant at night. PT if no improvement. XR Dec, Torticollis (ICD-10 - M43.6) Heat/ice and NSAIDs/muscle relaxant. PT if no improvement Dec, Dry mouth (ICD-10 - R68.2) Push water, lozenges [email or web address] Other 04-07-2023 Evaluation note* Encounter Date Diagnosis [...] Tylenol and Motrin. ROM exercises, Voltaren Gel [email or web address] Other 10-05-2022 Hospital Discharge instructions Patient Education [...] 06/30/2013 Document Revised: 03/03/2019 Document Reviewed: 03/03/2019 [employer] Patient Education 2020 [employer]. 05/01/2022 08:20:59 Calorie Counting for Weight Loss [...] 07/14/2006 Document Revised: 04/02/2019 Document Reviewed: 06/13/2017 [employer] Patient Education 2020 [employer]. Follow Up Care 12/12/2021 12:13:24 With:Lorne GONZALEZ, TEDDY Gonzalez, URO Address: When:Within 1 Year(s) [facility] 05-18-2022 Hospital Discharge instructions Patient Education [...] Follow these instructions at home: Medicines Take vavv-ehc-wwrkwno and prescription medicines only as told by [...] or the blood stops without treatment. Take ihuk-qob-okhrhbl and prescription medicines only as told by your health care provider. Drink enough fluid to keep your urine clear or pale yellow. This information is not intended to replace advice given to you by your health care provider. Make sure you discuss any questions you have with your health care provider. Document Released: 07/14/2006 Document Revised: 12/08/2019 Document Reviewed: 08/16/2017 [employer] Patient Education 2020 [employer]. Follow Up Care 06/06/2021 10:30:38 With:Ramila Pradhan MD, CLIFL, URO Address: When:3 months [facility] evaluation + Plan note Future Appointments Appointment Date:12/21/2021 07:30:00 AM Scheduled Provider: Location:.[place]ICAL [place] Appointment Type:PT Pelvic Floor/UI Eval (FT) Appointment Date:05/01/2022 08:00:00 AM Scheduled Provider:Ramila Pradhan MD Location:[facility] Appointment Type:URO Office Visit [facility] evaluation + Plan note Future Appointments Appointment Date:12/21/2021 07:30:00 AM Scheduled Provider: Location:[place].PH[place]ICAL [place] Appointment Type:PT Pelvic Floor/UI Eval (FT) Appointment Date:05/01/2022 08:00:00 AM Scheduled Provider:Ramila Pradhan MD Location:[facility] Appointment Type:URO Office Visit Diagnostic Tests Pending * [facility]ments Appointment [...] 08:00:00 AM Scheduled Provider:Ramila Pradhan MD Location:[facility] Appointment Type:URO Office Visit [facility] evaluation + Plan note Future Appointments Appointment Date:05/07/2023 08:00:00 AM Scheduled Provider:Ramila Pradhan MD Location:[facility] Appointment Type:URO Office Visit [facility] evaluation + Plan note Future Appointments Appointment Date:05/18/2025 08:00:00 AM Scheduled Provider:Ramila Pradhan MD Location:[facility] Appointment Type:URO Office Visit [facility] evaluation + Plan note Future Appointments Appointment Date:05/18/2025 08:00:00 AM Scheduled Provider:Ramila Pradhan MD Location:[facility] Appointment Type:URO Office Visit Diagnostic Tests Pending * Urine Culture 05/12/24 [facility] Evaluation + Plan note Future Appointments Appointment Date:12/01/2024 07:30:00 AM Scheduled Provider: Location:[facility] Appointment Type:Surgery FT Appointment Date:05/18/2025 08:00:00 AM Scheduled Provider:Ramila Pradhan MD Location:[facility] Appointment Type:URO Office Visit Diagnostic Tests Pending * Urine Culture 11/18/24 [facility] evaluation + Plan note Future Appointments Appointment Date:05/11/2025 08:15:00 AM Scheduled Provider:Ramila Pradhan MD Location:[facility] Appointment Type:URO Office Visit [facility] Evaluation noteNo [email or web address] Other [email or web address] noteNo assessment information available [facility] Work Phone: evaluation note* Diagnosis Onset Date Resolution Status Rectal bleeding acute Trapezius muscle strain none active Neck pain noneactive [facility] Work Phone: evaluation note* Diagnosis Onset Date Resolution Status Chronic venous insufficiency acute Primary osteoarthritis of both knees acute Left leg swelling noneactive [facility] Work Phone: Evaluation note* Diagnosis Onset Date Resolution Status Chronic venous insufficiency acute Primary osteoarthritis of both knees acute Left leg swelling noneactive Chronic venous insufficiency acute DVT (deep venous thrombosis) acute Primary osteoarthritis of both knees acute Left leg swelling noneactive [facility] Work Phone: evaluation note* Diagnosis Arthritis of right knee- Primary Chronic pain of right knee [facility] Diagnosis Arthritis of right knee [facility] Diagnosis Arthritis of right knee [facility]* Diagnosis Arthritis of right knee- Primary Chronic pain of right knee [facility]* Diagnosis Arthritis of right knee- Primary Chronic pain of right knee [facility]* Diagnosis Dry eyes, bilateral- Primary 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 edema Epiretinal membrane (ERM) of left eye Glaucoma suspect of both eyes Unspecified preglaucoma Blepharitis of upper and lower eyelids of both eyes, unspecified type [facility]* Diagnosis 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, mild stage (CMS/HCC)- Primary 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 edema Epiretinal membrane (ERM) of left eye Dry eyes, bilateral Blepharitis of upper and lower eyelids of both eyes, unspecified type [facility]* Diagnosis 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, mild stage (CMS/HCC) [facility]* Diagnosis 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, mild stage (CMS/HCC) [facility]* Diagnosis 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 edema- Primary Epiretinal membrane (ERM) of left eye Dry eyes, bilateral Blepharitis of upper and lower eyelids of both eyes, unspecified type 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, mild stage (CMS/HCC) [facility] Diagnosis Chronic pain of right knee- Primary Arthritis of right knee documented [facility]* Diagnosis 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, mild stage (CMS/HCC) documented [facility]* Diagnosis 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, mild stage (CMS/HCC) documented [facility]* Diagnosis Rectal bleeding- Primary Hemorrhage of rectum and anus [facility] Diagnosis Rectal bleeding Hemorrhage of rectum and anus [facility] Diagnosis 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, mild stage [facility]* Diagnosis Glaucoma suspect of both eyes- Primary Unspecified preglaucoma documented in [facility]* Diagnosis Pre-op testing Unspecified pre-operative examination documented [facility]* Diagnosis Onset Date Resolution Status Admit Date Anemia acute November 23 11:10am Chronic venous insufficiency acute November 23, 2024 11:10am H/O deep venous thrombosis acute November 23, 2024 11:10am Primary osteoarthritis of le ft knee acute November 23, 2024 11:10am Preop exam for internal medicine noneactive November 23, 2024 11:10am [facility] Work Phone: Evaluation note* Diagnosis Primary osteoarthritis of left knee documented in this encounter [facility]* Diagnosis Status post total left knee replacement- Primary documented in this encounter [facility]* Diagnosis Epiretinal membrane (ERM) of left eye- Primary 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, mild stage Dry eyes, bilateral 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 edema Blepharitis of upper and lower eyelids of both eyes, unspecified type documented in this encounter [facility]* Diagnosis Status post total left knee replacement- Primary Chronic pain of right knee documented in this encounter [facility]* Diagnosis Blepharitis of upper and lower eyelids of both eyes, unspecified type- Primary 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 edema (CMS-HCC) Dry eyes, bilateral Epiretinal membrane (ERM) of left eye 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, mild stage documented in this encounter [facility]* Diagnosis 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, mild stage- Primary Epiretinal membrane (ERM) of left eye Dry eyes, bilateral 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 edema (CMS-HCC) Blepharitis of upper and lower eyelids of both eyes, unspecified type documented in this encounter [facility]* Diagnosis Status post total left knee replacement- Primary Chronic pain of right knee documented in this encounter [facility] general Narrative - Reported* Type Description Date [...] History COLONOSCOPY Hospitalization History SEE SURGICAL HX [email or web address] Other Hospital course Narrative No data available for this section [facility] Discharge instructions No data available for this section [facility] instructionsAmbulatory Orders* Referral to General Surgery Location: None Selected [facility] Work Phone: InstructionsNot on filedocumented in this encounter [facility] filedocumented in this encounter [facility] No data available for this section [facility] reason for visit Narrative* Consultation (Routine) - Closed Specialty Diagnoses / Procedures Referred By Isaac miller Referred To Contact Physical Therapy Diagnoses Primary osteoarthritis of left knee Procedures ME OFFICE/OUTPATIENT NEW HIGH MDM 60 MINUTES Harley Arciniega, DO [address] [place] [address] Phone: tel: fax: Shawn Wagoner, PT [address] [place] [address] Phone: tel: fax: Referral ID Status Reason Start Date Expiration Date V isits Requested Visits Authorized [id number] Closed Specialty Services Required 11/18/2024 05/17/2025 10 10 [facility] Summary Purpose Family History No Family History Records Found No data available for this section No Family History Records Found No data available for this section No data available for this section No Family History Records FoundNo Family History Records Found No data available for this section No Family History Records FoundNo Family History Records FoundNo Family History Records FoundNo Family History Records FoundNo Family History Records FoundNo Family History Records Found No data available for this section No Family History Records FoundNo Family History Records FoundNo Family History Records FoundNo Family History Records FoundNo Family History Records FoundNo Family History Records FoundNo Family History Records FoundNo Family History Records FoundNo Family History Records FoundNo Family History Records FoundNo Family History Records Found No data available for this section No Family History Records FoundNo Family History Records FoundNo Family History Records Found Advance Directives No Advanced Directives Records Found Advance Directive Response Recorded Date/ Time Advance Directives No November 10 3:40pm Advance Directive Response Recorded Date/ Time Advance Directives No November 10 2:40pm Chief Complaint and Reason for Visit Chief [...] both knees Left leg swelling Chief Complaint Admit Date 2 week follow up March 24, 2024 10 :00am CC Adult Risk Stratification June 092023 1:53pm follow up June 17, 2024 9:33am Reason for Visit Admit Date Chronic venous insufficiency February 10:00am DVT (deep venous thrombosis) February 10:00am Left leg swelling March 24, 2024 10 :00am Chronic venous insufficiency June 172023 9:33am H/O deep venous thrombosis May 9:33am Medicare annual wellness visit, subseque nt June 17, 2024 9:33am Nicotine dependence, cigarettes, in zain ssion June 17, 2024 9:33am Screening mammogram for breast cancer No vember 2023 9:33am Chief Complaint Admit Date pre surgical clearance November 23, 2024 11:10am Reason for Visit Admit Date Anemia November 23, 2024 11: 10am Chronic venous insufficiency November 23, 2024 11:10am H/O deep venous thrombosis November 23, 025 11:10am Primary osteoarthritis of left knee Apri l 2024 11:10am Preop exam for internal medicine October 272024 11:10am Reason for Referral Specialty Diagnoses / Procedures Referred By Isaac t Referred To Contact Orthopaedic Surgery Diagnoses Arthritis of right knee Procedures L Inj/Asp: L knee Orly, Syl Germain, [employer] [address] [place] [address] Referral ID Status Reason Start Date Expiration Date V isits Requested Visits Authorized [id number] Authorized 03/31/2024 09/27/2024 1 1 Additional Source Comments Care Team (unrecognized sect ion and content) Team Status: Active Member Role Status Dates Alden Wheeler DO Primary Care Provider Active Team Status: Inactive Member Role Status Dates Alden Ball , DO Primary Care Provide r, Attending Provider Active Start: March 10, 2024 End: March 10, 2024 Team Status: Active Member Role Status Dates Alden Wheeler DO Primary Care Provider Active Start: September 25, 2023 RADHA Jeronimo Attending Provider Active St art: September 25, 2023 Team Status: Active Member Role Status Dates Alden Wheeler DO Primary Care Provider Active Start: September 30, 2023 RADHA Jeronimo Attending Provider Active St art: September 30, 2023 Team Status: Active Member Role Status Dates Alden Wheeler DO Primary Care Provide r, Attending Provider Active Start: October 01, 2023 Team Status: Inactive Member Role Status Dates Alden Wheeler DO Primary Care Provide r, Attending Provider Active Start: November 11, 2023 End: November 11, 2023 Team Status: Inactive Member Role Status Dates Alden Wheeler DO Primary Care Provide r, Attending Provider Active Start: March 24, 2024 End: March 24, 2024 S3B Multi Sensor Operator Relationship Specialty Start Date End Date Alden Wheeler MD [address] [place] [id number] PCP - General Internal Medicine 12/18/22 S3B Multi Sensor Operator Relationship Specialty Start Date End Date Alden Wheeler MD [address] [place] [id number] PCP - General Internal Medicine 12/18/22 S3B Multi Sensor Operator Relationship Specialty Start Date End Date Alden Wheeler MD [address] [place] [address] PCP - General Internal Medicine 12/18/22 S3B Multi Sensor Operator Relationship Specialty Start Date End Date Alden Wheeler MD [address] [place] [id number] PCP - General Internal Medicine 12/18/22 Team Status: Active Member Role Status Dates Alden Wheeler DO Primary Care Provide r, Attending Provider Active Start: June 09, 2024 Team Status: Inactive Member Role Status Dates Alden Wheeler DO Primary Care Provide r, Attending Provider Active Start: June 17, 2024 End: June 17, 2024 S3B Multi Sensor Operator Relationship Specialty Start Date End Date Alden Wheeler MD [address] [facility] [place] [address] PCP - General Internal Medicine 12/18/22 S3B Multi Sensor Operator Relationship Specialty Start Date End Date Alden Wheeler MD [address] [facility] [place] [address] PCP - General Internal Medicine 12/18/22 S3B Multi Sensor Operator Relationship Specialty Start Date End Date Alden Wheleer MD [address] [facility] [place] [address] PCP - General Internal Medicine 12/18/22 S3B Multi Sensor Operator Relationship Specialty Start Date End Date Alden Wheeler MD [address] [facility] [place] [address] PCP - General Internal Medicine 12/18/22 S3B Multi Sensor Operator Relationship Specialty Start Date End Date Alden Wheeler MD [address] [facility] [place] [address] PCP - General Internal Medicine 12/18/22 S3B Multi Sensor Operator Relationship Specialty Start Date End Date Alden Wheeler MD [address] [facility] [place] [address] PCP - General Internal Medicine 12/18/22 S3B Multi Sensor Operator Relationship Specialty Start Date End Date Alden Wheeler MD [address] [facility] [place] [address] PCP - General Internal Medicine 12/18/22 S3B Multi Sensor Operator Relationship Specialty Start Date End Date Alden Wheeler MD [address] [facility] [place] [address] PCP - General Internal Medicine 12/18/22 S3B Multi Sensor Operator Relationship Specialty Start Date End Date Alden Wheeler MD [address] [facility] [place] [address] PCP - General Internal Medicine 12/18/22 S3B Multi Sensor Operator Relationship Specialty Start Date End Date Alden Wheeler MD [address] [facility] [place] [address] PCP - General Internal Medicine 12/18/22 S3B Multi Sensor Operator Relationship Specialty Start Date End Date Alden Wheeler MD [address] [facility] [place] [address] PCP - General Internal Medicine 12/18/22 S3B Multi Sensor Operator Relationship Specialty Start Date End Date Alden Wheeler MD [address] [facility] [place] [address] PCP - General Internal Medicine 12/18/22 S3B Multi Sensor Operator Relationship Specialty Start Date End Date Alden Wheeler MD [address] [facility] [place] [address] PCP - General Internal Medicine 12/18/22 S3B Multi Sensor Operator Relationship Specialty Start Date End Date Alden Wheeler DO [address] [place] [address] PCP - General 02/10/17 S3B Multi Sensor Operator Relationship Specialty Start Date End Date Alden Wheeler DO [address] [place] [address] PCP - General 02/10/17 S3B Multi Sensor Operator Relationship Specialty Start Date End Date Alden Wheeler MD [address] [facility] [place] [address] PCP - General Internal Medicine 12/18/22 S3B Multi Sensor Operator Relationship Specialty Start Date End Date Alden Wheeler MD [address] [facility] [place] [address] PCP - General Internal Medicine 11/18/24 S3B Multi Sensor Operator Relationship Specialty Start Date End Date Alden Wheeler MD [address] [facility] [place] [address] PCP - General Internal Medicine 11/18/24 S3B Multi Sensor Operator Relationship Specialty Start Date End Date Alden Wheeler MD [address] [facility] [place] [address] PCP - General Internal Medicine 11/18/24 Team Status: Inactive Member Role Status Dates Alden Wheeler DO Primary Care Provide r, Attending Provider Active Start: November 23, 2024 End: November 23, 2024 S3B Multi Sensor Operator Relationship Specialty Start Date End Date Alden Wheeler DO [address] [facility] [place] [address] PCP - General Internal Medicine 11/18/24 S3B Multi Sensor Operator Relationship Specialty Start Date End Date Alden Wheeler DO [address] [facility] [place] [address] PCP - General Internal Medicine 11/18/24 S3B Multi Sensor Operator Relationship Specialty Start Date End Date Alden Wheeler DO [address] [facility] [place] [address] PCP - General Internal Medicine 11/18/24 S3B Multi Sensor Operator Relationship Specialty Start Date End Date Alden Wheeler DO [address] [facility] [place] [address] PCP - General Internal Medicine 11/18/24 S3B Multi Sensor Operator Relationship Specialty Start Date End Date Alden Wheeler DO [address] [facility] [place] [address] PCP - General Internal Medicine 11/18/24 S3B Multi Sensor Operator Relationship Specialty Start Date End Date Alden Wheeler DO [address] [facility] [place] [address] PCP - General Internal Medicine 11/18/24 S3B Multi Sensor Operator Relationship Specialty Start Date End Date Alden Wheeler DO [address] [facility] [place] [address] PCP - General Internal Medicine 11/18/24 S3B Multi Sensor Operator Relationship Specialty Start Date End Date Alden Wheeler DO [address] [facility] [place] [address] PCP - General Internal Medicine 11/18/24 S3B Multi Sensor Operator Relationship Specialty Start Date End Date Alden Wheeler DO [address] [facility] [place] [address] PCP - General Internal Medicine 11/18/24 S3B Multi Sensor Operator Relationship Specialty Start Date End Date Alden Wheeler DO [address] [facility] [place] [address] PCP - General Internal Medicine 11/18/24 S3B Multi Sensor Operator Relationship Specialty Start Date End Date Alden WheelerDO [address] [place] [address] PCP - General Internal Medicine 11/18/24 S3B Multi Sensor Operator Relationship Specialty Start Date End Date Alden WheelerDO [address] [facility] [place] [address] PCP - General Internal Medicine 11/18/24 REASON FOR VISIT (unrecogniz ed section and content) Reason Comments Pain Reason Comments Injections Reason Comments Follow-up Reason Onset Date Comments injection 07/02/2024 Reason Comments Med Change Request Reason Onset Date Comments Med Refill 08/27/2024 Reason Onset Date Comments Med Refill 09/07/2024 Reason Comments Rectal Bleeding Blood in stool, last colon 02/12/1720-tkebsk-84 year recall, referred by Dr. Wheeler Reason Comments Med Refill Reason Comments Pain Reason Comments Pain Post-op Reason Comments Eye Exam Glaucoma Reason Comments Post-op Reason Comments Glaucoma Reason Comments Post-op L RA TKA 12/01/24 INFORMATION SOURCE (unrecogn ized section and content) DATE CREATED AUTHOR 12/12/2022 [facility] DATE CREATED AUTHOR AUTHOR'S ORGANIZ ATION 12/07/2023 [facility] DATE CREATED AUTHOR AUTHOR'S ORGANIZ ATION 05/15/2024 [facility] DATE CREATED AUTHOR AUTHOR'S ORGANIZ ATION 05/16/2024 [facility] DATE CREATED AUTHOR AUTHOR'S ORGANIZ ATION 11/19/2024 [facility] DATE CREATED AUTHOR AUTHOR'S ORGANIZ ATION 12/03/2024 [facility] DATE CREATED AUTHOR AUTHOR'S ORGANIZ ATION 12/04/2024 [facility] DATE CREATED AUTHOR AUTHOR'S ORGANIZ ATION 12/06/2024 [facility] DATE CREATED AUTHOR AUTHOR'S ORGANIZ ATION [facility]20[facility] DATE CREATED AUTHOR AUTHOR'S ORGANLUCINA ATION 04/15/2025 [facility] DATE CREATED AUTHOR AUTHOR'S ORGANIZ ATION 05/03/2025 [facility] Goals (unrecognized section and content) Goals may [...] BE BASED ON THE PRIMARY CLINICAL RECORDS. [email or web address] [facility]. provides no warranty or guarantee of the accuracy or completeness of information in this document.
--- NOTE | 2025-05-11 07:27 | XR_ITS ---
The [address] [address] Patient Name: JB ESTRELLA MRN: [id number] date: 1950 Sex: F Assigned Patient Location: US Current Patient Location: US Accession/Order Number: [id number] Exam Date: 05/11/2025 07:55 Report Date: 05/11/2025 08:12 At the request of: ANY BENNETT MD Procedure: XR abdomen 1V SINGLE VIEW ABDOMEN COMPARISON: 05/07/2024 CLINICAL DATA: Kidney stone follow-up. Chronic worsening bladder leakage. Supine view of the abdomen and pelvis was obtained. There is air and stool within the colon on the left. No dilated small bowel loops are identified. The left kidney is partially obscured. No obvious radiopaque renal or ureteral stones are noted. No soft tissue masses are seen. There is levoscoliotic curvature and degenerative change at the spine. There is also mild degenerative change at the hips. XR/XR abdomen 1V IMPRESSION: NO OBVIOUS RADIOPAQUE STONES. Impression dictated by: Natalie Rehman M.D. 05/11/2025 8:12 AM Dictation Location: [place] [address] Electronically authenticated by: [id number] Y Date: 05/11/2025 08:12
== END 2025-05-11 07:25 | disposition home or self-care (01) ==
LOC: US 07:24
PROVIDERS: PCP Internal Medicine; Visit Provider Urology
DX: N20.0 Calculus of kidney (principal); N28.1 Cyst of kidney, acquired
CPT/HCPCS: 74018; 76775

== ENCOUNTER 2025-06-13 14:59 | Outpatient (REF) | payer MEDICARE, OTHER, SELFPAY ==
--- OUTSIDE RECORDS SUMMARY | 2025-06-13 15:07 | XMS_ITS | CCD ---
Author Organization [facility] CliniSymt Care Team Providers Care Asset Protection Associate Name Role Phone ALDEN WHEELER Primary Care Physician Alden Wheeler DOMINICK, DR REINA Delgado Attending Unavailable WEST, DR REINA Delgado Admitting Unavailable BALL, DR HARO Primary Care Unavailable WEST, DR REINA Delgado Consulting Unavailable ZIEBMARY BETH, DR HARRISON Zaldivar Consulting Unavailable BALL, DR HARO Primary Care Unavailable WEST, DR REINA Delgado Attending Unavailable WEST, DR REINA Delgado Admitting Unavailable WEST, DR REINA Delgado Attending Unavailable WEST, DR REINA Delgado Admnilda Unavailable WEST, DR REINA Delgado Consulting Unavailable BALL, DR HARO Primary Care Unavailable ZIEBER, DR HARRISON Zaldivar Consulting Unavailable WEST, DR REINA Delgado Attending Unavailable WEST, DR REINA Delgado Admnilda Unavailable WEST, DR REINA Delgado Consulting Unavailable BALL, DR HARO Primary Care Unavailable ZIEBER, DR HARRISON Zaldivar Consulting Unavailable WEST, DR REINA Delgado Attending Unavailable WEST, DR REINA Delgado Admitting Unavailable WEST, DR REINA Delgado Consulting Unavailable BALL, DR HARO Primary Care Unavailable WEST, DR REINA Delgado Admnilda Unavailable WEST, DR REINA Delgado Consulting Unavailable BALL, DR HARO Primary Care Unavailable WEST, DR REINA Delgado Attending Unavailable ZIEBER, DR HARRISON Zaldivar Consulting Unavailable MISC, DR [...] DR REINA Delgado Attending Unavailable ZIEBER, DR HARRISON Zaldivar Consulting Unavailable WEST, DR REINA Delgado Attending Unavailable DOMINICK, DR REINA Delgado Admitting Unavailable WEST, DR REINA Delgado Consulting Unavailable SUMMER, DR [...] Unavailable Brown, DO Harley A Referring Unavailable Ball Alden BORGES Primary Care Provider Brown, Harley A Admitting Unavailable Brown, Harley A Attending Unavailable Brown, Harley A Referring Unavailable Brown, DO Harley A Referring Unavailable Brown, DO Harley A Attending Unavailable Brown, DO Harley A Admitting Unavailable LCAY TORRES Attending Unavailable BROWN, HARLEY A Referring [...] TORRES Attending Unavailable CLAY TORRES Attending Unavailable SANDRAADRIANA Attending Unavailable SANDRAADRIANA Attending Unavailable SANDRAADRAINA Attending Unavailable APLINGSYL Attending Unavailable CLAY TORRES Attending Unavailable CLAY TORRES Attending Unavailable BROWN, HARLEY A Referring Unavailable BROWN, HARLEY A Attending Unavailable BROWN, HARLEY A Referring Unavailable Alden Wheeler DO Primary Care Provider Alden Wheeler DO Primary Care Provider Ramila Pradhan Attending Unavailable Ramila Pradhan Attending Unavailable Lauren Gaines Attending Unavailable Allergies Allergy ClassificationReported Allergen(s)Allergy TypeDate of OnsetReaction(s) Facility (20 sources)Latex; Translations: [latex]Drug uykuwps11-00-0455Otqldwrr of skin (disorder), RashExecutive Urology of [facility] (9 sources)latanoprost; Translations: [latanoprost ophthalmic][facility] ([facility] sources)meloxicam; Translations: [meloxicam]Drug AllergyBleWyandot [facility] (15 sources)latanoprostDrug [id number] Healthcare Work Phone: (15 sources)meloxicamDrug [id number] Hospital Medications Current Medications MedicationDrug Class(es)DatesSig (Normalized)Sig (Original)acetaminophen 500 mg oral tablet (20 sources)Start: 92-23-0234jxgk 1 tablet by mouth every four hours acetaminophen 500 mg Tab 500 mg = 1 tab(s), Oral, q4hr, # 60 tab(s), Refills(s) 0, Pharmacy: [id number], 160, cm, 11/18/24 12:38:00 EDT, Height/Length Dosing, 94.9, kg, 11/18/24 12:38:00 EDT, Weight Dosing Start Date: 12/01/24 Status: Ordered Medication Dispense Status: Completed Quantity: 60.0 Unit: tab(s) Total Allowed Fills: 1 Fills Dispensed: 0Start: 19-53-4975zdvg 500 mg by mouth twice dailyTylenol 500 mg, Oral, BID, Refills(s) 0 Start Date: 11/18/24 Status: Ordered Repeat number: 1Acetaminophen (TYLENOL ARTHRITIS PAIN PO) Active End: 44-60-3576ygomtbjxqadeo (Tylenol Extra Strength) 500 MG tablet every 6 (six) hours. 06/01/2024 Discontinued (Therapy completed)Acetaminophen (TYLENOL ARTHRITIS PAIN PO) Tylenol Arthritis Pain Activeacetaminophen 325 mg / HYDROcodone bitartrate 5 mg oral tablet (2 sources)Opioid AgonistStart: 12-13-2024 End: 75-72-6424yvwk 1-2 tablets by mouth every four hoursHYDROcodone- acetaminophen ([place]) 5-325 MG tablet Indications: Primary osteoarthritis of both kneesTake 1-2 tablets by mouth every 4 (four) hours if needed (pain) for up to 7 days 40 tablet 12/13/2024 12/20/2024 Activeapixaban 5 mg oral tablet (20 sources)Factor Xa InhibitorStart: 03-10-2024 End: 75-62-1454nktozgvc (Eliquis) 5 MG tablet Twice daily 03/10/2024 07/05/2024 Discontinued (Med list cleanup)Start: 03-10-2024 End: 12-55-7082nmqr 2 tablets by mouth twice daily, then take 1 tablet by mouth twice dailyApixaban (Eliquis) 5 mg tablet Discontinued 0 PO Twice daily 60 30 March 10, 2024 12:00am April 06, 2024 12:57pm 10mg (2 tablets) twice daily for 7 days, then decrease to 5mg (1 tablet) twice daily for next 3 months aspirin 81 mg oral tablet (20 sources)Platelet Aggregation Inhibitor, Nonsteroidal Anti-inflammatory Drug Start: 66-67-7571Lxnbvdl Low Dose 81 mg oral tablet Refills(s) 0 Start Date: 02/25/25 Status: Ordered Medication Dispense Status: Completed Total Allowed Fills: 1 Fills Dispensed: 0Start: 11-11-2023 End: 75-75-0185qptx 1 tablet by mouth once dailyAspirin 325 mg tablet,delayed release (DR/EC) Discontinued 325 MG PO Daily November 11, 2023 12:00amNbarrow [facility] institute 2023 10:38amStart: 66-97-9809anxe 1 tablet by mouth once dailyaspirin 81 mg Oral EC Tab 81 mg = 1 tab(s), Oral, Daily, Refills(s) 0, Prophylaxis Start Date: 03/20/20 Status: OrderedStart: 79-06-8203fjku 1 tablet by mouth once daily aspirin 81 mg Oral EC Tab 81 mg = 1 tab(s), Oral, Daily, Refills(s) 0, Prophylaxis Start Date: 03/20/20 Status: OrderedStart: 09-76-9086MXXGEGT 81 MG chewable tablet if needed 06/11/2010 Activetake 1 tablet by mouth every twenty- four hoursAspirin 325 MG 1 tablet Orally Once a day Activebacillus coagulans [id number] unt / inulin 250 mg oral capsule (2 sources)Start: 70-95-4466yeut 1 capsule by mouth once dailyProbiotic Formula (Bacillus Coagulans) oral capsule 1 cap(s), Oral, Daily, Refill(s) 0, ProphylaxisStart Date: 03/20/20 Status: Orderedbimatoprost 0.1 mg/ml ophthalmic solution (20 sources)Prostaglandin AnalogStart: 75-30-9414uowi 0.01 dose into the eye(s) once dailyLumigan 0.01% ophthalmic solution OPTH, Daily, Refill(s) 0 Start Date: 11/18/24 Status: Ordered Medication Dispense Status: Completed Total Allowed Fills: 1 Fills Dispensed: 0Start: 79-50-4396Lihbhtt 0.01% ophthalmic solution OPTH, Daily, Refill(s) 0 Start Date: 11/18/24 Status: Ordered Repeat number: 1 Start: 07-06-2024 End: 43-59-5312rxuv 1 drop(s) into the eye(s) at bedtimeLumigan 0.01 % ophthalmic solution Indications: 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, mild stage INSTILL 1 DROP INTO BOTH EYES AT BEDTIME 7.5 mL 3 10/26/2024 ActiveCalcium (20 sources)Phosphate Binder, Calciumcalcium 200 MG tablet Activecalcium 200 MG tablet Calcium ActiveCalcium Citrate / Vitamin D (5 sources)Start: 68-46-4375fddx 1 tablet by mouth once dailycalcium-vitamin D 1 tab, Oral, Daily, Refill(s) 0, Prophylaxis Start Date: 03/20/20 Status: Ordered cefdinir 300 mg oral capsule (1 source)Cephalosporin AntibacterialStart: 27-36-1574acqi 1 capsule by mouth twice dailyCefdinir 300 mg capsule Active 300 MG PO Twice daily 10 November 23, 2024 12:00amcelecoxib 100 mg oral capsule (10 sources)Nonsteroidal Anti-inflammatory DrugStart: 28-57-0758nytw 1 capsule by mouth in the morningcelecoxib (CeleBREX) 100 MG capsule Take 100 mg by mouth in the morning and 100 mg before bedtime. 12/01/2024 Activecholecalciferol 0.125 mg oral capsule (20 sources)Vitamin Dcholecalciferol (Vitamin D-3) 125 MCG (5000 UT) capsule Activedocusate sodium 100 mg oral capsule (20 sources)Start: 64-85-4333ztkm 1 capsule by mouth twice dailyColace 100 mg Cap 100 mg = 1 cap(s), Oral, BID, # 20 cap(s), Refills(s) 0, Constipation Start Date:03/20/20 Status: Ordered Quantity: 20.0 Unit: cap(s) Repeat number: 1 Docusate Sodium (DSS) 100 MG capsule 1 (one) time each day at the same time Activedorzolamide 20 mg/ml / timolol 5 mg/ml ophthalmic solution (20 sources)Carbonic Anhydrase Inhibitor, beta-Adrenergic BlockerStart: 09-43-8492ysonsmlpaeo-timolol Opth 2%-0.5% Becca OPTH, Daily, Refill(s) 0 Start Date: 11/18/24 Status: Ordered Medication Dispense Status: Completed Total Allowed Fills: 1 Fills Dispensed: 0Start: 11-02-2024 End: 51-63-1091xgcf 1 drop(s) into the eye(s) in the morningdorzolamide-timolol (Cosopt) 2-0.5 % ophthalmic solution Indications: Glaucoma suspect of both eyes Administer 1 drop into both eyes in the morning and 1 drop before bedtime. 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 60 each 4 09/07/2024 Activekrill oil 500 mg oral capsule (20 sources)Start: 36-79-7331vwwu 1 capsule by mouth once dailyNatdayana's Bounty Red Krill Oil 500 mg oral capsule 1 cap, Oral, Daily, Refill(s) 0, Prophylaxis Start Date: 03/20/20 Status: OrderedKrill Oil 350 MG capsule ActiveKrill Oil 350 MG capsule as directed Orally ActiveKRILL/OM3/DHA/EPA/OM6/LIP/ASTX (KRILL OIL, OMEGA 3 AND 6, ORAL) (2 sources)KRILL/OM3/DHA/EPA/OM6/LIP/ASTX (KRILL OIL, OMEGA 3 AND 6, ORAL) Take by mouth daily. 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, mild stage Administer 1 drop into affected eye(s) at bedtime 5 each 3 06/03/2025 Active Start: 12-19-2023 End: 39-73-8941pppf 1 drop(s) into the eye(s) at bedtimelatanoprost (Xalatan) 0.005 % ophthalmic solution Indications: Glaucoma of both eyes secondary to dr lacy, mild stage (CMS/HCC) Administer 1 drop into both eyes at bedtime 2.5 mL 6 07/06/2024 10/04/2024 ActivemethylPREDNISolone (15 sources)CorticosteroidStart: 76-75-9677jjctthRVYARNPkhgqr (Medrol Dospak) 4 MG tablets Indications: Arthritis of right knee Follow schedule on package instructions 21 tablet 07/05/2024 ActiveStart: 03-31-2024 End: 79-89-8428zudvlhUBJRHIJymzmu acetate (DEPO-Medrol) injection 40 mgStart: 03-31-2024 End: 93-40-835355 mg, Intra-articular, Once PRN Procedure, Starting on Fri03/31/24 at 0905, For 1 dose24 hr mirabegron 50 mg extended release oral tablet (8 sources)beta3-Adrenergic AgonistStart: 06-01-2025 End: 22-96-9755vuvf 1 tablet by mouth once dailymirabegron 50 mg oral tablet, extended release 50 mg = 1 tab(s), Oral, Daily, X 30 day(s), # 30 tab(s), Refills(s) 11, Pharmacy: [facility]/pharmacy #[id number], 160, cm, 06/01/25 8:25:00 EST, Height/Length Dosing, 90.8, kg, 06/01/25 8:25:00 EST, Weight Dosing Start Date: 06/01/25 Stop Date: 05/27/26 Status: Ordered Medication Dispense Status: Completed Quantity: 30.0 Unit: tab(s) Total Allowed Fills: 12 FillsDispensed: 0 Start: 09-20-0405tasy 1 tablet by mouth once dailyMyrbetriq 25 MG 24 hr tablet Take 25 mg by mouth Daily 02/25/2025 ActiveMultiple Vitamin (MULTI VITAMIN DAILY PO) (20 sources)Multiple Vitamin (MULTI VITAMIN DAILY PO) ActiveMultiple Vitamin (MULTI VITAMIN DAILY PO) Multi Vitamin ActiveMULTIVIT-MINERALS/FERROUS FUM (MULTI VITAMIN ORAL) (2 sources)MULTIVIT-MINERALS/FERROUS FUM (MULTI VITAMIN ORAL) Take by mouth daily. ActiveNature's Bounty Red Krill Oil (4 sources)Start: 92-09-3800Swkvmc's Bounty Red Krill Oil 350 mg, Oral Start Date: 06/06/21 Status: OrderedNature's Bounty Red Krill Oil 500 mg oral capsule (9 sources)Start: 49-96-7403wana 1 capsule by mouth once dailyNature's Bounty Red Krill Oil 500 mg oral capsule 1 cap, Oral, Daily, Refill(s) 0, Prophylaxis Start Date: 03/20/20 Status: Ordered Medication Dispense Status: Completed Total Allowed Fills: 1 Fills Dispensed: 0Start: 38-08-6179gnbt 1 capsule by mouth once dailyNature's Bounty Red Krill Oil 500 mg oral capsule 1 cap, Oral, Daily, Refill(s) 0, Prophylaxis Start Date: 03/20/20 Status: Ordered Repeat number: 1 Start: 13-48-4465shbd 1 capsule by mouth once dailyNature's Bounty Red Krill Oil 500 mg oral capsule 1 cap, Oral, Daily, Refill(s) 0, Prophylaxis Start Date: 03/20/20 Status: Musckkztdxsg-7h-gmu-epa-fish oil-D3 (VITAMIN-D + OMEGA-3) 350 mg-400 mg- 1,000 unit capsule (2 sources)gafuv-0i-lsu-epa-fish oil-D3 (VITAMIN-D + OMEGA-3) 350 mg-400 mg- 1,000 unit capsule Take by mouth daily. Activepeg 3350-sod sulf,tpjv-iod-uys 178.7-7.3-0.5 gram recon soln (1 source)Start: 12-05-2023 End: 16-45-0930qxf 3350-sod sulf,zrvr-mah-omp 178.7-7.3-0.5 gram recon soln Indications: Rectal bleeding Take 1 kit by mouth once daily for 1 dose. Please see instructional sheet given by physicians office. 1 each 12/05/2023 12/06/2023 ActivePotassium (20 sources)Potassium 99 MG tablet 1 (one) time each day at the same time Active Potassium 99 MG tablet 1 (one) time each day at the same time. Activepotassium chloride 1.33 meq oral tablet (11 sources)Start: 72-52-2228fymx 1 tablet by mouth once dailypotassium chloride 99 mg oral tablet 99 mg = 1 tab(s), Oral, Daily, # 100 tab(s), Refills(s) 0, Prophylaxis Start Date: 03/20/20 Status: Ordered Medication Dispense Status: Completed Quantity: 100.0 Unit: tab(s) Total Allowed Fills: 1 Fills Dispensed: 0 Start: 93-52-6467xfwz 1 tablet by mouth once dailypotassium chloride 99 mg oral tablet 99 mg = 1 tab(s), Oral, Daily, # 100 tab(s), Refills(s) 0, Prophylaxis Start Date: 03/20/20 Status: OrderedPotassium gluconate (2 sources)POTASSIUM GLUCONATE ORAL Take by mouth daily. ActiveprednisoLONE acetate 10 mg/ml ophthalmic suspension (20 sources)CorticosteroidStart: 63-03-2867mnlcddlaTASC Opth acetate 1% Susp 5 mL 1 drop(s), INSTILL 1 DROP INTO BOTH EYES 4 TIMES A DAY StartDate: 05/12/24 Status: Ordered Medication Dispense Status: Completed Total Allowed Fills: 1 Fills Dispensed: 0Start: 61-59-8195wywzwrboXFGT Opth acetate 1% Susp 5 mL INSTILL 1 DROP INTO BOTH EYES 4 TIMES A DAY Start Date: 05/12/24 Status: Ordered Start: 38-49-6297abchsrmrBWSW acetate (Pred-Forte) 1 % ophthalmic suspension 06/22/2023 ActiveStart: 67-38-5433ejai 1 drop(s) into the eye(s) four times dailyprednisoLONE acetate (Pred-Forte) 1 % ophthalmic suspension PUT 1 DROP IN LEFT EYE 4 TIMES A DAY 06/22/2023 ActiveStart: 28-39-7901bqmazdpqIVMH acetate (PRED FORTE) 1 % ophthalmic suspension Administer 1 drop into the left eye in t he morning and 1 drop at noon and 1 drop in the evening and 1 drop before bedtime. 06/22/2023 ActiveProbiotic Formula (Bacillus Coagulans) oral capsule (2 sources)Start: 28-92-2422socw 1 capsule by mouth once dailyProbiotic Formula (Bacillus Coagulans) oral capsule 1 cap(s), Oral, Daily, Refill(s) 0, ProphylaxisStart Date: 03/20/20 Status: OrderedSuzetrigine (Journavx) 50 MG tablet (7 sources)Start: 12-16-2024 End: 63-53-9657lond 1 tablet by mouth every twelve hoursSuzetrigine (Journavx) 50 MG tablet Indications: Status post total left knee replacement Take 50 mgby mouth every 12 (twelve) hours for 14 days For the first dose, take 2 tablets (100 mg) on an empty stomach at least 1 hour before or 2 hours after food. Starting 12 hours after the initial dose, take 1 tablet (50 mg) every 12 hours with or without food. 30 tablet 12/16/2024 12/30/2024 ActiveStart: 12-01-2024 End: 15-79-9877pwor 1 tablet by mouth every twelve hoursSuzetrigine (Journavx) 50 MG tablet Indications: Primary osteoarthritis of left knee Take 50 mg by m outh every 12 (twelve) hours for 14 days For the first dose, take 2 tablets (100 mg) on an empty stomach at least 1 hour before or 2 hours after food. Starting 12 hours after the initial dose, take 1tablet (50 mg) every 12 hours with or without food. 30 tablet 12/01/2024 12/15/2024 ActivetiZANidine 2 mg oral tablet (20 sources)Central alpha-2 Adrenergic AgonistStart: 12-30-2022 End: 46-32-0405upXSPpxuvi (Zanaflex) 2 MG tablet 03/24/2024 Active End: 46-60-2719fnLQYgaktb (Zanaflex) 2 MG capsule Take by mouth 06/01/2024 Discontinued (Therapy completed)Tylenol 8 HR Arthritis Pain (1 source)Start: 45-11-2798pncq 650 mg by mouth twice dailyTylenol 8 HR Arthritis Pain 650 mg, Oral, BID, Refills(s) 0 Start Date: 11/18/24 Status: Ordered Repeat number: 1Vibegron (Gemtesa) 75 MG tablet (9 sources)Start: 25-96-0070Yrqlfrsa (Gemtesa) 75 MG tablet Take 75 mg by mouth 05/12/2024 Activevibegron 75 MG Oral Tablet [Gemtesa] (3 sources)Start: 92-53-3908mazn 1 tablet by mouth once dailyGemtesa 75 mg oral tablet 75 mg = 1 tab(s), Oral, Daily, fill whichever med is more affordable, # 30 tab(s), Refills(s) 2, Pharmacy: [facility]/pharmacy #[id number], 160, cm, 02/25/25 15:17:00 EDT, Height/Length Dosing, 99.4, kg, 02/25/25 15:17:00 EDT, Weight Dosing Start Date: 02/25/25 Status: Ordered Quantity: 30.0 Unit: tab(s) Repeat number: 3 Indications: Mixed incontinence;Start: 24-40-2369pele 1 tablet by mouth once dailyGemtesa 75 mg oral tablet 75 mg = 1 tab(s), Oral, Daily, # 30 tab(s), Refills(s) 11, Pharmacy: [facility], 162, cm, 05/12/24 10:24:00 EDT, Height/Length Dosing, 97, kg, 05/12/24 10:24:00 EDT, Weight Dosing Start Date: 05/12/24 Status: OrderedVitamin D3 (11 sources)Start: 80-14-4977Dswaarz D3 125 mcg Start Date: 06/06/21 Status: Ordered Medication Dispense Status: Completed TotalAllowed Fills: 1 Fills Dispensed: 0Start: 43-80-9200Idfxroj D3 125 mcg Start Date: 06/06/21 Status: Ordered Repeat number: 1Start: 41-03-6086Vmivoia D3 125 mcg Start Date: 06/06/21 Status: OrderedWomens Pack oral tablet (11 sources)Start: 96-48-0659uhif 1 tablet by mouth once dailyWomens Pack oral tablet 1 tab(s), Oral, Daily, Refill(s) 0, Prophylaxis Start Date: 03/20/20 Status:Ordered Medication Dispense Status: Completed Total Allowed Fills: 1 Fills Dispensed: 0Start: 32-72-2685ckui 1 tablet by mouth once dailyWomens Pack oral tablet 1 tab(s), Oral, Daily, Refill(s) 0, Prophylaxis Start Date: 03/20/20 Status:Ordered Repeat number: 1Start: 61-30-7201vces 1 tablet by mouth once dailyWomens Pack oral tablet 1 tab(s), Oral, Daily, Refill(s) 0, Prophylaxis Start Date: 03/20/20 Status:Ordered Completed/Discontinued Medications MedicationDrug Class(es)DatesSig (Normalized)Sig (Original)folic acid 0.4 mg oral tablet (1 source) End: 11-59-6375nilc 1 tablet by mouth once dailyfolic acid (FOLVITE) 400 MCG tablet Take 400 mcg by mouth daily. 12/05/2023 Discontinued (Patient Stopped On Own)gabapentin 300 mg oral capsule (13 sources)Anti-epileptic AgentStart: 12-06-2024 End: 51-91-1527eeoh 1 capsule by mouth in the morning, then take 1 capsule by mouth in the evening, then take 1 capsule by mouth at bedtimegabapentin (Neurontin) 300 MG capsule Indications: Primary osteoarthritis of left knee Take 1 capsule (300 mg) by mouth in the morning and 1 capsule (300 mg) in the evening and 1 capsule (300 mg) before bedtime. Do all this for 14 days. 42 capsule 12/06/2024 04/14/2025 Discontinued (Therapy completed)3 ml sodium hyaluronate 10 mg/ml prefilled syringe (16 sources)Start: 04-14-2025 End: 08-01-1680kzcpr-linked hyaluronate (Gel-One) injection 30 mgStart: 04-14-2025 End: mg, Intra-articular, Once PRN Procedure, Starting on Enriqueta 04/14/25 at 0846, For 1 doseStart: 06-15-2024 End: 62-92-0158Nnzcak Hyaluronate (Viscosup) injection 2 mLStart: 06-15-2024 End: 11-19-38408 mL, Intra-articular, Once PRN Procedure, Starting on Fri06/15/24 at 1214, For 1 doseStart: 06-08-2024 End: 66-40-7385Ipciwv Hyaluronate (Viscosup) injection 2 mLStart: 06-08-2024 End: mL, Intra-articular, Once PRN Procedure, Starting on Fri06/08/24 at 1049, For 1 doseStart: 06-01-2024 End: 82-49-6515Fmiqol Hyaluronate (Viscosup) injection 2 mLStart: 06-01-2024 End: mL, Intra-articular, Once PRN Procedure, Starting on Fri06/01/24 at 0948, For 1 doselevoFLOXacin 250 mg oral tablet (2 sources)Quinolone AntimicrobialStart: 04-06-2024 End: 41-01-1954iodn 1 tablet by mouth once dailyLevofloxacin 250 mg tablet Discontinued 250 MG PO Daily 11 29April 06, 2024 12:00am April 06, 2024 4:18pmmeloxicam 15 mg oral tablet (13 sources)Nonsteroidal Anti-inflammatory DrugStart: 11-11-2023 End: 13-69-0504dzil 1 tablet by mouth once dailyMeloxicam 15 mg tablet Discontinued 15 MG PO Daily November 11, 2023 12:00am November 13, 2023 12:22pm Start: 15-41-7605sfwktwavt 15 mg Tab Refills(s) 0 Start Date: 05/07/23 Status: OrderedpredniSONE 20 mg oral tablet (13 sources)Start: 11-13-2023 End: 58-79-6806Yohqrutlev 20 mg tablet Discontinued 20 MG PO As Directed 07 02November 13, 2023 12:00am June 17, 2024 10:38am 1 tab tid w/ food x 2 days, then bid w/ food x 2 days, then qd w/ food x 2 daystafluprost 0.015 mg/ml ophthalmic solution (3 sources)Prostaglandin AnalogStart: 07-06-2024 End: 15-14-7482Cgvadwyflz, PF, (Zioptan) 0.0015 % solution Indications: 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, mild stage (CMS/HCC) Administer 1 drop into affected eye(s) at bedtime 30 each 5 07/06/2024 07/06/2024 DiscontinuedStart: 27-03-0120Xndhjrtcnc, PF, (Zioptan) 0.0015 % solution Indications: 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, mild stage ([facility]/HCC) Administer 1 drop into affected eye(s) at bedtime 30 each 5 07/06/2024 Activetriamcinolone acetonide 32 mg injection (4 sources)CorticosteroidStart: 01-13-2025 End: 00-74-1097nzhxlfknuxwpx acetonide (Zilretta) injection 32 mgStart: 01-13-2025 End: 25-88-827368 mg, Once PRN Procedure, Starting on Enriqueta 01/13/25 at 1143, For 1 doseVitamin D 1000 intl units Tab (4 sources)Start: 19-18-6318ddjq 1 tablet by mouth once dailyVitamin D 1000 intl units Tab 1,000 International_Unit = 1 tab(s), Oral, Daily, # 30 tab(s), Refills(s) 0, Prophylaxis Start Date: 03/20/20 Status: Ordered Problems Active Problems Problem ClassificationProblemDateDocumented DateEpisodic/ChronicAcute bronchitis (8 sources)Acute bronchitis; Translations: [Acute bronchitis due to other specified organisms]EpisodicCalculus of urinary tract (16 sources)Kidney stone; Translations: [Ureteric stone]Onset: 05-12-2024 19-81-5034EobiiwgnRxfrvymxyi and other anemia (17 sources)Anemia; Translations: [Anemia, unspecified]26-85-8321Zbnoksjv Deficiency and other anemia (8 sources)Microcytic hypochromic anemia; Translations: [Iron deficiency anemia, unspecified]EpisodicDeficiency and other anemia (1 source)Anemia, unspecified; Translations: [Anemia, unspecified]11-23-2024 EpisodicDiseases of mouth; excluding dental (1 source)Dry mouth, unspecifiedEpisodicGastrointestinal hemorrhage (16 sources)Rectal hemorrhage; Translations: [Hemorrhage of anus and rectum] Onset: 561153-21-3568DrjbknouIncusrpvhxplp symptoms and ill-defined conditions (20 sources)Mixed incontinence; Translations: [Incontinence]Onset: 12-12-2021 ChronicGenitourinary symptoms and ill-defined conditions (20 sources)Nocturia; Translations: [Nocturia]Onset: 89-66-4112UdfhxazxBsctvftr (20 sources)Preglaucoma, unspecified, bilateral; Translations: [Preglaucoma, unspecified]Onset: 12-19-2023 Resolved: [id number]bvy injury (1 source)Concussion without loss of consciousness, initial encounterEpisodic Osteoarthritis (20 sources)Arthritis; Translations: [Arthritis of left knee]Onset: 12-11-2022 88-06-7002LjwabkvJsnlj bone disease and musculoskeletal deformities (8 sources)Other specified disorders of bone density and structure, other site; Translations: [Osteopenia of lumbar spine]EpisodicOther bone disease and musculoskeletal deformities (6 sources)Osteopenia; Translations: [Other specified disorders of bone density and structure, other site]34-94-8392KqebwroyXlmfk connective tissue disease (6 sources)History of total knee arthroplasty; Translations: [Presence of left artificial knee joint]27-00-7092KcccdwoNnspc connective tissue disease (4 sources)Other specified soft tissue disorders; Translations: [Swelling of limb]21-68-9772EjgldeyjFhukt diseases of bladder and urethra (1 source)Overactive bladderOnset: 89-32-6026TqiszgpWmfum diseases of bladder and urethra (1 source)Overactive tlgxigi38-16-0801AzsdjphMxqxe diseases of kidney and ureters (1 source)Urinary tract obstruction; Translations: [Hydronephrosis with renal and ureteral calculous obstruction]Onset: 79-19-2755KtatuuotMruch diseases of kidney and ureters (2 sources)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; Translations: [Cyst of kidney, acquired]Onset: 81-99-0274UshrzuvnMqjyy diseases of kidney and ureters (6 sources)Acquired renal cystic qjdicpm69-06-5758KltewhuiYkigw diseases of kidney and ureters (1 source)Cyst of kidney, acquiredOnset: 94-02-2281MflcxfqjIcjqa diseases of veins and lymphatics (14 sources)Peripheral venous insufficiency; Translations: [Venous insufficiency (chronic) (peripheral)]89-81-4753YfxvuyqxUsrbp diseases of veins and lymphatics (6 sources)Venous insufficiency (chronic) (peripheral); Translations: [Venous (peripheral) insufficiency, unspecified]65-37-2387PbmtcaesIckqi non-traumatic joint disorders (6 sources)Arthritis of right iulx01-82-4468QrezzevYegls non-traumatic joint disorders (12 sources)Pain in right knee; Translations: [Pain in joint, lower leg] 77-60-1470JwwywloeGwopx nutritional; endocrine; and metabolic disorders (1 source)Obese class II; Translations: [Body mass index (BMI) 36.0-36.9, adult] Onset: 19-85-9655EoyyvbfHxaeu nutritional; endocrine; and metabolic disorders (8 sources)Body mass index 30+ - -33-6977HxaymwmWiqwc screening for suspected conditions (not mental disorders or infectious disease) (7 sources)Encounter for screening mammogram for malignant neoplasm of breast; Translations: [Patient encounter status]Onset: 86-53-1722GmdtwyukSiyrxklbi; thrombophlebitis and thromboembolism (17 sources)Phlebitis and thrombophlebitis of superficial vessels of right lower extremity; Translations: [Phlebitis and thrombophlebitis of superficial vessels of left lower extremity]Onset: 70-17-2404MzxlnnhcWuqibfa on above:DVT left Gastrocnemius Vein - esidual codes; unclassified (8 sources)Postmenopausal state; Translations: [Asymptomatic menopausal state] EpisodicRetinal detachments; defects; vascular occlusion; and retinopathy (20 sources)Branch retinal vein occlusion with macular edema; Translations: [Tributary (branch) retinal vein occlusion, right eye, with macular edema]Onset: 742458-59-7583XirtunzHelacxhja and history of mental health and substance abuse codes (11 sources)Zq-quecqt44-52lvikvh43-29-4924IhoaupptOizqdyhwcpx; intervertebral disc disorders; other back problems (13 sources)Cervical spondylosis; Translations: [Spondylosis without myelopathy or radiculopathy, cervical region]ChronicSpondylosis; intervertebral disc disorders; other back problems (2 sources)Torticollis; Translations: [Cervicalgia]EpisodicSprains and strains (2 sources)Strain of muscle, fascia and tendon at neck level, initial encounter; Translations: [Strain of other muscles, fascia and tendons at shoulder and upper arm level, unspecified arm, initial encounter]EpisodicSubstance-related disorders (15 sources)Tobacco user; Translations: [Nicotine dependence, cigarettes, in remission]97-92-9938KwxuncrOkfovhuwjlh injury; contusion (2 sources)Contusion of right hand, initial encounter; Translations: [Contusion of left knee, initial encounter]EpisodicUnclassified (11 sources)Asymptomatic microscopic gsaklbypa08-31-3572Fwmpcmhscdru (6 sources)Obstructive mkgnemujdfkvqi81-04-1341Vrmdtxqrbxnl (4 sources)Chronic pain of right cyzn91-87-2050Ssyyujen veins of lower extremity (4 sources)Varicose veins of bilateral lower extremities with pain; Translations: [VARICOSE VNS TITA LOW EXTREMW/PAIN]Onset: 78-92-3924Jzhpuzfv Past or Other Problems Problem ClassificationProblemDateDocumented DateEpisodic/ChronicFracture of lower limb (20 sources)Closed trimalleolar fracture; Translations: [Displaced trimalleolar fracture of right lower leg, initial encounter for closed fracture]Onset: 508351-97-2470NrrtuanqVqvewwopvuej; infection of eye (except that caused by tuberculosis or sexually transmitteddisease) (20 sources)Blepharitis of upper and lower eyelids of bilateral eyes; Translations: [Unspecified blepharitis right eye, upper and lower eyelids]Onset: 151632-64-9768DmeunoutIibky eye disorders (20 sources)Dry eyes; Translations: [Dry eye syndrome of bilateral lacrimal glands]Onset: 722565-53-7637FgexfgcsJuupnwlr codes; unclassified (1 source)Family history of malignant neoplasm of breast; Translations: [FAMILY HX MALIG NEOPLASM OF BREAST]Onset: 17-04-5919ChsxrivxIputipof codes; unclassified (1 source)Family history of malignant neoplasm of trachea, bronchus and lung; Translations: [FAM HX MALIG NEOPLSM TRACH BRON LNG]Onset: 52-05-9969Czpqltny Unclassified (1 source)Acute left-sided low back pain without sciatica M54.50 Results Test NameValueInterpretationReference RangeFacilityAmbulatory Visit Summaryon 07-08-3948Eczfktkiok Visit SummaryAmbulatory Visit Summary DONNA ESTRELLA :1950 Visit Date:06/01/2025 Ambulatory Visit Instructions Your Diagnosis Kidney stones OAB (overactive bladder) Mixed incontinence Nocturia Asymptomatic microscopic hematuria Renal cysts, acquired, bilateral Tests Performed US Renal -- Results Pending -- XR Abdomen 1 View -- Results Pending -- Please visit your patient portal for your results or contact your primary care physician. Your Care Team Attending Physician - Lorne GONZALEZ, Ramila Pascal Primary Care Physician - ALDEN WHEELER DO This Is Your Medications List mirabegron (mirabegron 50 mg oral tablet, extended release) Contact prescribing physician if questions or concerns [...] Tab) [Image Removed: STOP]Stop taking these medications vibegron (Gemtesa 75 mg oral tablet) Procedures Performed Total knee arthroplasty (12/01/2024), Cataract extraction and insertion of intraocular lens (2020), Cataract extraction and insertion of intraocular lens (03/21/2020), delivery, Cholecystectomy, CRPP (closed reduction and percutaneous pinning) of fracture of humerus, Open reduction and internal fixation of fracture, Procedure on knee, Sclerotherapy of vein of lower limb. Discharge Vitals Temperature (Tympanic) 36.1 ???C Heart Rate (Peripheral) 72 Respiratory Rate 14 Blood Pressure 134/70 Height 160 cm Height 63 in Weight 90.8 kg Weight 200.179 lb BMI 35.47 What to do next Scheduled Follow-Up Appointments Friday2025 8:45 AM EST With: Lorne GONZALEZ, Ramila Pascal Where: [facility] [address] [place] [address]- You Need to Schedule the Following Appointments Follow Up with Lorne GONZALEZ, Ramila Pascal, URL, [facility]RO When: Where: Medications What How Much When Why Instructions Changed mirabegron (mirabegron 50 mg oral tablet, extended release) 1 Tablets By Mouth Every day Duration: 30 Days Pickup at [facility]/pharmacy #[id number] Unchanged acetaminophen (acetaminophen 500 mg Tab) 1 [...] tablet) 1 Tablets By Mouth Every day Contactprescribing physician if questions or concerns Unchanged omega-3 polyunsaturated fatty acids (Nature's Bounty Red Krill Oil 500 mg oral capsule) 1cap By Mouth Every day Contact prescribing physician [...] Contact prescribing physician if questions or concerns Pharmacy Information [facility]/pharmacy #[id number]: [address], [place] [id number] [phone] What How Much When Why Comments Stop Taking vibegron (Gemtesa 75 mg oral tablet) 1 Tablets By Mouth Every day Mixed incontinence fill whichever med is more affordable Allergies latanoprost ophthalmic (Itching) meloxicam (Bleeding) Problems Ongoing - Any problem that you are currently receiving treatment for. Anemia Arthritis Asymptomatic microscopic hematuria BMI 36.0-36.9,adult Former smoker Kidney stones Mixed incontinence Nocturia OAB (overactive bladder) Renal cysts, acquired, bilateral Patient Survey You may receive a survey via text or e-mail asking about your office visit. Please share your experience with us by completing your survey. We appreciate your feedback and thank you for choosing us for your care. Education Materials Botulinum Toxin Bladder Injection A botulinum toxin bladd (more content not included)...[facility] 46-55-5895GwdjitrxqHzdhkbrnp From: Kathy Gutierrez To: EU - Recalls Lue; Sent: 06/01/2025 10:30:23 EST Show up: 05/01/2026 11:30:00 EDT Subject: sched JAK Due Date/Time: 06/01/2026 10:30:00 EST Reminder Message Please Remember to: Please call pt to schedule JAK for 1 yr appt. She also needs kUB. Both orders in 06/01/25 encounter. Thanks![facility] Urology Office/Clinic Noteon [id number] Office/Clinic NoteUrology Office/Clinic Note Chief Complaint 1 yr w/KUB HPI Staff 75 yr old female here for 1 yr f/u w/KUB & JAK Last seen by PEDRITO KUB 05/11/25 [facility] (pushed) - L kidney partially obscured. Neg. JAK 05/11/25 [facility] (pushed) - 5 mm RSP possible stone. Possible L sided stones, largest 5 mm LMP. No hydro. 2.1 x 1.7 x 1.7 cm RSP cyst. Started Mirabegron 25 mg qd (filled this instead of Gemtesa per external pharmacy) PVR 48 cc BBSQ - 19 Pt. is having incontinence, cannot hold for long before having to urinate Pt. denies having pain with urination Pt. denies having gross hematuria Pt. denies having abd pain Pt. denies having flank pain pt did not give urine sample due to missing the hat in toilet. pt is taking Myrbetriq but it is costly, she would like to discuss other options. History of Present Illness Tests reviewed: UA, JAK, KUB, bladder scan I have reviewed the previous health record information and history for this patient from MEG Bartholomew APRN. I have reviewed and verified the staff [...] See HPI. Physical Exam Vitals & Measurements T: 36.1 ???C(Tympanic) HR: 72(Peripheral) RR: 14 BP: 134/70 HT: 63 in HT: 160 cm WT: 200.179 lb WT: 90.8 kg BMI: 35.47 General Appearance: alert, no distress, well nourished, well developed adult. Assessment/Plan 75 yo F, last seen by PEDRITO, here for kidney stone surveillance and new medication f/u. Pt yao in [place], returns in September. 1. Kidney stones (N20.0: Calculus of kidney) CT AP w/ Con 04/25/23 [facility] - mild Lt-sided hydro w/ obstructive stone measuring 2.7mm in the UVJ. -Passed stone on own CT AP wo con 05/12/23 [facility] - Punctate nonobstructing bilateral renal stones. No hydro. KUB 05/07/24 [facility] - No visible stones. JAK 05/07/24 [facility] - No stones or hydro noted. KUB 05/11/25 [facility] - L kidney partially obscured. Neg. JAK 05/11/25 [facility] - 5 mm RSP possible stone. Possible L sided stones, largest 5 mm LMP. No hydro. Onreview ~ 3 mm each. Reviewed imaging with pt. Voices she does not drink a lot of water. Dehydration is likely causing kidney stone formation. Educated pt on general dietary modifications and fluid intake for stone prevention. Recommended she sips throughout the day to reach fluid intake goal. Follow up 1 yr with JAK, KUB or sooner if needed. Pt understands and agrees with plan. -Goal 90 oz fluid daily (add 1/4 cup lemon/[place] daily) -Diet mods (more fruits/veg, limit animal protein and salt) 2. OAB (overactive bladder) (N32.81: Overactive bladder) Pt had improvement of incontinence sx after completing 5 sessions of PFPT [1]. PVR 48 cc. BBS 19 (19). Started Mirabegron 25 mg qd at prior OV (last filled 04/01/25) however it is costly for her. She takes this at night but voices she does not take this everyday, forgets. Discussed options including increasing mirabegron dosage vs botox bladder injections. R/B of options discussed. Pt is interested in botox but prefers to cont med since she will be wintering in [place] and is leaving soon. Does like Gatorade or flavored water like propel. Recommended adding water todilute bladder irritants and prevent dehydration. -Increase mirabegron qd to 50 mg. SEs discussed. Sent to [facility]. Discussed compliance to truly evaluate medication benefit -Consider botox 100U when pt returns from [place] -Limit/avoid bladder irritants -Pt to call if she would like to schedule Botox (if KML on mat leave, another MD can do). The procedural risks, benefits, details, and treatment alternatives have been discussed with the patient. These include bleeding, infection, continued problems with overactive bladder, inability to empty the bladder which could require an indwelling catheter or need for in/out catheterization to empty the bladder, and need for repeat procedures over time (usually lasts up to six months), as well as fatigueand insomnia, among others. There is a minimal risk of Botox entering the blood stream and causing neurological problems, which is quite rare. Full informed consent has been obtained. Will order Local anesthesia. 3. Mixed incontinence (N39.46: Mixed incontinence) See #2. 4. Nocturia (R35.1: Nocturia) 3x/night (2-3). -Reduce/stop fluids 2 hours before bed, increase fluids during the day, see #1 5. Asymptomatic microscopic hematuria (R31.21: Asymptomatic microscopic hematuria) UAs: 03/30/23 [facility] - large blood, moderate bacteria, and (more content not included)...NormalFisher Hart Medical CenterComment on above:Result Comment: Electronically Signed By: Lorne GONZALEZ, Ramila Pascal\.br\Date and Time Signed: 06/01/25 09:15EST\.br\Electronically Co-Signed By: Kathy Gutierrez\.br\Date and Time Co-Signed: 06/01/25 08:56 EST\.br\Electronically Co-Signed By: Kathy Gutierrez\.br\Date and Time Co-Signed: 06/01/25 08:57 ESTNo Panel Informationon [id number] Kaufman, ARRT 04/14/2025 7:41 PM L Inj/Asp: R knee on 04/14/2025 8:46 AM Indications: pain Details: 22 G needle, lateral approach Medications: 30 mg cross-linked hyaluronate 30 MG/3ML Consent was given by the patient. [facility] 3 Viewson 15-01-1714Dcnymsr Result: Three views, bilateral PA weight-bearing/sunrise/lateral left knee, taken today and saved to the permanent medical record are reviewed. Prosthesis is unchanged in position and alignment. No signs of prosthetic wear or loosening. No periprosthetic fractures. Complete loss medial joint space right knee, severe end stage arthritis. Severe PF arthritis.[facility] Study observation (narrative)[facility] HealthcareAmbulatory Visit Summaryon [id number] Visit SummaryAmbulatory Visit Summary DONNA ESTRELLA Amy :1950 Visit Date:02/25/2025 Ambulatory Visit Instructions Your Diagnosis Asymptomatic microscopic hematuria Your Care Team Attending Physician - Eder PAYNE, MEG, Lauren Villalobos Primary Care Physician - ALDEN WHEELER DO [...] GONZALEZ, Ramila Pascal Where: [facility] [id number]- Medications What How Much When Instructions Unchanged [...] tablet) 1 Tablets By Mouth Every day Contactprescribing physician if questions or concerns Unchanged omega-3 polyunsaturated fatty acids (Nature's Bounty Red Krill Oil 500 mg oral capsule) 1cap By Mouth Every day Contact prescribing physician [...] signed up for this yet, please contact [employer] at [phone] to get signed up today. Language Information Language assistance services are available as needed. [facility]/Cl[facility] Noteon 17-66-2665Gmbyptp Office/Clinic NoteUrology Office/Clinic Note Chief Complaint uti symptoms HPI [...] did not get it due to other healthissues and is wondering if maybe she should take it due to worsening incontinence. History of Present Illness I have reviewed and verified the staff HPI to be accurate for this encounter. Portions of this record may have been created with voice recognition artificial intelligence software, specifically [employer], [employer] and or [employer]. Substitutions may have occurred due to the [...] affordable, # 30 tab(s), Refills(s) 2, Pharmacy: [facility]/pharmacy #[id number], 160, cm, 02/25/25 15:17:00 EDT, Height/Length Dosing, 99.4, kg, 02/25/25 15:17:00 EDT, Weight Dosing vibegron, 75 mg = 1 tab(s), Oral, Daily, fill whichever med is more affordable, # 30 tab(s), Refills(s) 2, Pharmacy: [facility]/pharmacy #[id number], 160, cm, 02/25/25 15:17:00 EDT, Height/Length Dosing, 99.4, kg, 02/25/25 15:17:00 EDT, Weight Dosing 2. Nocturia (R35.1: Nocturia) 2-3x/night see #1 3. Asymptomatic microscopic hematuria (R31.21: Asymptomatic microscopic hematuria) UAs: 03/30/23 [facility] - large blood, moderate bacteria, and trace leuks. (around time of stone episode) 04/15/23 [facility] - large blood and trace leuks. (around time of stone episode) [place]07[place] [facility] [place]. JAK 05/07/24 [facility] - No renal mass, bladder wall thickening or mass noted. UA today w/ trace blood denies any gross hematuria since prior OV -cont to monitor Ordered: Urnls Dip Stick Auto w/o Microscopy POC 63020 4. Kidney stones (N20.0: Calculus of kidney) [...] Lorne GONZALEZ, Ramila Pascal, URL, [facility] [address], [place] [address] [address]- Additional Instructions: as scheduled apr 2025 Patient [...] Nature's Bounty Red Krill (more content not included)...[facility] above:Result Comment: Electronically Signed By: MEG Gaines APRN, Lauren Villalobos\.br\Date and Time Signed: 02/25/25 15:57 EDTXR Knee - left 3 Viewson [id number] Result: Three views, bilateral PA weight-bearing/sunrise/lateral left knee, taken today and saved to the permanent medical record are reviewed. Prosthesis is unchanged in position and alignment. No signs of prosthetic wear or loosening. No periprosthetic fractures.[facility] Panel Informationon [id number] Kaufman, ARRT 01/14/2025 4:09 PM L Inj/Asp: R knee on 01/13/2025 11:43 AM Indications: pain Details: 22 G needle, lateral approach Medications: 32 mg triamcinolone acetonide 32 MG Consent was given by the patient. [facility] K[facility] - left 3 Viewson [id number] Study observation (narrative)[facility] Viewson 12-20-2024 Imaging Result: Three views, bilateral PA weight-bearing/sunrise/lateral left knee, taken today and saved to the permanent medical record are reviewed. Prosthesis is unchanged in position and alignment. No signs of prosthetic wear or loosening. No periprosthetic fractures.[facility] Knee - left 3 Viewson [id number] Study observation (narrative)[facility] Surgical Pathology Reporton [id number] Pathology Report[address] [address]- Surgical Pathology Report Collected Date/Time: 12/01/2024 08:07 [...] tissue 2 - Bone after decalcification (DC) DC:[facility] Microscopic Description Microscopic examination performed unless gross only specified. Quality was accessed and acceptable. This report was transcribed using voice recognition technology and might contain unintended computerized motor grader rough grade errors.[facility] HospitalComment on above:Performed By: #### [id number] #### [facility] [address] [place], [place] [address]Nrhi. Reviewon 24-03-9401Haud ReviewAnemia with anisocytosis, target cells, occasional ovalocytes and mild polychromasia. Clinical correlation is indicated for etiology. WBC and platelets within normal limits.Invalid Interpretation [facility] HospitalComment on above:Performed By: #### [id number] #### [facility] [address], [place] [address]HHLuz 01-86-4803Nidx nitrogen [Mass/Vol]17 mg/dLNormal5-21NOMS HealthcareComment on above:Performed By: #### [id number] #### [facility] [address] [place], [place] [address]WHU w/ Auto Diffon 09-49-3498Ypzqtgxdpten Ql (Bld)PRESENT Invalid Interpretation [facility] HospitalComment on above:Performed By: #### [id number] #### [facility] [address] [place], [place] [address]Rukrczdlvl stippling LM Ql (Bld)PRESENTInvalid Interpretation [facility] HospitalComment on above:Performed By: #### [id number] #### [facility] [address] [place], [place] [address]Viqfowgqf/100 WBC (Bld)0.2 %Normal0.0-2.0[facility] CenterComment on above:Performed By: #### [id number] #### [facility] [address] [place] [address]Lufawwcza/Leukocytes Auto (Bld) [Pure # fraction]0.0 E9/LNormal 0.0-0.2FHolmes County Joel Pomerene Memorial HospitalComment on above:Performed By: #### [id number] #### [facility] [address] [place] [address]Dwwqsodsglx (Bld) [#/Vol]0.0 E9/LNormal0.0-0.5FHolmes County Joel Pomerene Memorial HospitalComment on above:Performed By: #### [id number] #### [facility] [address] [place] [address]Iynnhynfxhf/100 WBC (Bld)0.0 %Normal0.0-8.0[facility] CenterComment on above:Performed By: #### [id number] #### [facility] [address] [place] [address]Tzczwtuqtca distribution width (RBC) [Ratio]16.0 %High10.9-14.2 [facility] CenterComment on above:Performed By: #### [id number] #### [facility] [address] [place] [address]Hvsuzsvtgq (Bld) [Volume fraction]32.1 %Low34.0-46.0[facility] CenterComment on above:Performed By: #### [id number] #### [facility] [address] [place] [address]Sohvmobsbf (Bld) [Mass/Vol]10.2 g/dLLow12.0-16.0[facility] CenterComment on above:Performed By: #### [id number] #### [facility] [address] [place] [address]Ggihtyzpmul (Bld) [#/Vol]0.9 E9/LLow1.0-4.0[facility] CenterComment on above:Performed By: #### [id number] #### [facility] [address] [place], [place] [address]Ybubeiplixl/100 WBC (Bld)10.4 %Low14.0-50.0[facility] CenterComment on above:Performed By: #### [id number] #### [facility] [address] [place] [address]RVA (RBC) [Entitic mass]20.5 pgLow27.0-34.0[facility] Medical CenterComment on above:Performed By: #### [id number] #### [facility] [address] [place] [address]QIYV (RBC) [Mass/Vol]31.8 g/hOEgqybt46.4-36.0[facility] CenterComment on above:Performed By: #### [id number] #### [facility] [address] [place] [address]BCC (RBC) [Entitic vol]64.4 fLLow80.0-100.0[facility] CenterComment on above:Performed By: #### [id number] #### [facility] [address] [place] [address]Onfeozmiha Ql (Bld)PRESENTInvalid Interpretation CodeFirelands Regional Medical CenterComment on above:Performed By: #### [id number] #### [facility] [address] [place] [address]Xrgmgztye (Bld) [#/Vol]0.9 E9/LNormal0.2-1.0[facility] CenterComment on above:Performed By: #### [id number] #### [facility] [address] [place] [address]Jifvczbrjsp (Bld) [#/Vol]6.8 E9/LNormal2.0-7.5FHolmes County Joel Pomerene Memorial HospitalComment on above:Performed By: #### [id number] #### [facility] [address] [place] [address]Sdmwnjjdfho/100 WBC (Bld)78.6 %High36.0-75.0[facility] CenterComment on above:Performed By: #### [id number] #### [facility] [address] [place] [address]Dzyfjlxiqo LM Ql (Bld)PRESENTInvalid Interpretation CodeFirelands Regional Medical CenterComment on above:Performed By: #### [id number] #### [facility] [address] [place] [address]Njcbljkq mean volume (Bld) [Entitic vol]9.6 fLNormal6.4-10.8 [facility] CenterComment on above:Performed By: #### [id number] #### [facility] [address] [place] [address] 42166Ynhbbrsuj (Bld) [#/Vol]187.0 E9/LVlmpoo604.0-500.0Firelands Regional Medical CenterComment on above:Performed By: #### [id number] #### [facility] [address] [place] [address] 61015Bfybjrtnvhavmg Auto Ql (Bld)PRESENTInvalid Interpretation Code [facility] CenterComment on above:Performed By: #### [id number] #### [facility] [address] [place] [address] 73519XCL (Bld) [#/Vol]5.0 E12/LNormal4.3-5.9Firelands Regional Medical CenterComment on above:Performed By: #### [id number] #### [facility] [address] [place] [address] 91500JVO size Nom (Bld)SEE MORPHOLOGYInvalid Interpretation Code [facility] CenterComment on above:Performed By: #### [id number] #### [facility] [address] [place] [address] 54555Spffmg cells LM Ql (Bld)PRESENTInvalid Interpretation Code [facility] CenterComment on above:Performed By: #### [id number] #### [facility] [address] [place], [place] [address]SWC corrected for nucl RBC Auto (Bld) [#/Vol]8.7 E9/LNormal 4.0-11.0Fire[facility] Regional Medical CenterComment on above:Performed By: #### [id number] #### [facility] [address] [place], [place] [address]WPHGLDZABDouuoqw By: SYSTEM SYSTEM on 40-26-1068Dkgfd gap [Moles/Vol]8 mmol/LNormal6 - 16 mEq/LRemisol ChemChloride [Moles/Vol]109 mmol/L Sktzcn831 - 111 mmol/LRemisol ChemCO2 [Moles/Vol]27 mmol/SRvjpfy86 - 31 mmol/L Remisol ChemCreatinine [Mass/Vol]0.6 mg/dLNormal0.5 - 1.3 mg/dLRemisol ChemeGFR 93 mL/min/1.73 i9Mofhvb>=59mL/min/1.73 u0Izsdnyg ChemPotassium [Moles/Vol]4.1 mmol/LNormal3.5 - 5.3 mmol/LRemisol ChemSodium [Moles/Vol]140 mmol/YLlvebz615 - 145 mmol/LRemisol ChemUrea nitrogen [Mass/Vol]17 mg/dLNormal5 - 21 mg/dLRemisol ChemCreatinineon 62-17-5678Qfpexwjfst [Mass/Vol]0.6 mg/dLNormal0.5-1.3NOMS HealthcareComment on above:Performed By: #### [id number] #### [facility] [address] [place], [place] [address]Miioncvjl Note-Nursingon 67-07-5034Lciufemza Note-Nursing Discharge Note-Nursing DONNA ESTRELLA :1950 Visit [...] GONZALEZ, Ramila Pascal Where: [facility] [address] [place] [address] [place] [address]- New Follow Up Appointments after Discharge Follow Up with Harley Arciniega When: 12/16/2024 09:45 AM EDT Where: [place] [address]- Business (1) Follow Up with ALDEN WHEELER When: Comments: No need to see PCP at this time unless symptoms worsen. Where: [address] , [place] [address]- Business (1) The Following Equipment Has Been Ordered for You Home Equipment, Arranged - Walker The Following Services Have Been Arranged for You Prof Skilled Services, Arranged - Occupational Therapy, Physical Therapy Medications What How Much When Instructions Next Dose Changed acetaminophen (acetaminophen 500 mg Tab) 1 Tablets By Mouth Every 4 hours Pickup at [facility] 1pm.4pm and 8pm Unchanged bimatoprost ophthalmic [...] Red Krill Oil 500 mg oral capsule) 1cap By Mouth Every day 12/03 @9am Unchanged potassium chloride (potassium chloride 99 mg oral tablet) 1 Tablets By Mouth Every day 12/03 @9am Unchanged prednisoLONE ophthalmic (prednisoLONE Opth acetate 1% Susp 5 mL) 1 Drops INSTILL 1 DROP INTO BOTH EYES 4 TIMES A DAY 12pm,4pm and 8pm Unchanged tizanidine (tiZANidine 2 mg Tab) Resume Pharmacy Information [facility]: [address] [place], [place] [id number] [phone] What How Much When Comments Stop Taking [...] Kidney stones Mixed incontinence (more content not included)...[facility] EGFRon 99-27-3721TIX/1.73 sq M.predicted CKD-EPI (S/P/Bld) [Vol rate/Area]93- [facility] LYTESon 20-81-2214DIHJ ANION GAP:SCNC:PT:SER/PLAS:QN:8[facility] HospitalHEMATOLOGYOrdered By: SYSTEM SYSTEM on 98-27-8968Wjnbpartmcot Ql (Bld) PRESENT *NA* (12/02/24 4:54 AM)Invalid Interpretation CodeRemisol HemeBasophilic stippling LM Ql (Bld)PRESENT *NA* (12/02/24 4:54 AM)Invalid Interpretation CodeRemisol HemeBasophils/100 WBC (Bld) 0.2 %Normal0.0 - 2.0 %Remisol HemeBasophils/Leukocytes Auto (Bld) [Pure # fraction]0.0 E9/LNormal0.0 - 0.2 E9/LRemisol HemeEosinophils (Bld) [#/Vol]0.0 E9/LNormal0.0 - 0.5 E9/LRemisol HemeEosinophils/100 WBC (Bld)0.0 %Normal0.0 - 8.0 %Remisol HemeErythrocyte distribution width (RBC) [Ratio]16.0 %High10.9 - 14.2 %Remisol HemeHematocrit (Bld) [Volume fraction]32.1 %Low34.0 - 46.0 % Remisol HemeHemoglobin (Bld) [Mass/Vol]10.2 g/dLLow12.0 - 16.0 gm/dLRemisol Heme Lymphocytes (Bld) [#/Vol]0.9 E9/LLow1.0 - 4.0 E9/LRemisol HemeLymphocytes/100 WBC (Bld)10.4 %Low14.0 - 50.0 %Remisol HemeMCH (RBC) [Entitic mass]20.5 pgLow 27.0 - 34.0 pgRemisol HemeMCHC (RBC) [Mass/Vol]31.8 g/oRRwzuxh23.4 - 36.0 gm/dL Remisol HemeMCV (RBC) [Entitic vol]64.4 fLLow80.0 - 100.0 fLRemisol Heme Microcytes Ql (Bld)PRESENT *NA* (12/02/24 4:54 AM)Invalid Interpretation CodeRemisol HemeMonocytes (Bld) [#/Vol] 0.9 E9/LNormal0.2 - 1.0 E9/LRemisol HemeMonocytes/100 WBC (Bld)10.8 %Normal4.0 - 14.0 %Remisol HemeNeutrophils (Bld) [#/Vol]6.8 E9/LNormal2.0 - 7.5 E9/LRemisol HemeNeutrophils/100 WBC (Bld)78.6 %High36.0 - 75.0 %Remisol HemeOvalocytes LM Ql (Bld)PRESENT *NA* (12/02/24 4:54 AM)Invalid Interpretation CodeRemisol HemePlatelet mean volume (Bld) [Entitic vol]9.6 fLNormal6.4 - 10.8 fLRemisol HemePlatelets (Bld) [#/Vol] 187.0 E9/FPaovld176.0 - 500.0 E9/LRemisol HemePoikilocytosis Auto Ql (Bld) PRESENT *NA* (12/02/24 4:54 AM)Invalid Interpretation CodeRemisol HemeRBC (Bld) [#/Vol]5.0 E12/LNormal4.3 - 5.9 E12/LRemisol HemeRBC size Nom (Bld)SEE MORPHOLOGY *NA* (12/02/24 4:54 AM)Invalid Interpretation CodeRemisol HemeTarget cells LM Ql (Bld) PRESENT *NA* (12/02/24 4:54 AM)Invalid Interpretation CodeRemisol HemeWBC corrected for nucl RBC Auto (Bld) [#/Vol]8.7 E9/LNormal4.0 - 11.0 E9/LRemisol HemeInpatient Clinical Summaryon 92-66-8511Iftslifrw Clinical SummaryInpatient Clinical Summary [address] [address] Clinical Summary Person Information: Name: DONNA ESTRELLA Age: 74 Years : 1950 Sex: Female PCP: ALDEN WHEELER DO Marital Status: Race: White Ethnicity: Non- or Language: Japanese Visit Id: Visit Reason: LEFT KNEE OA Speciality: Acuity: Enc Type: Outpatient in a Bed Med Service: Surgery Arrival: 12/01/2024 05:29:31 Discharge: Dispo Type: Address: [address] [place] [address] [phone] Provider Notes: Patient: DONNA ESTRELLA Age: 74 [...] Daily, 0 Refill(s) omega-3 polyunsaturated fatty acids ([employer]'s Bounty Red Krill Oil 500 mg oral [...] Follow up: With: Address: When: ALDEN WHEELER [facility] [place] [address] Business (1) Comments: No need to see PCP at this time unless symptoms worsen. With: Address: When: Harley Arciniega [address] [place] [address] Business (1) 12/16/2024 9:45 AM Type Location Start Finish State [facility] Office Visit [facility] 05/18/2025 8:00 AM 05/18/2025 8:15 AM Confirmed Patient Education Information: Ignacio Arciniega - Total Knee Arthroplasty (Custom)[facility] Inpatient Patient Summaryon 59-75-1132Kijekjjra Patient SummaryInpatient Patient Summary [address] [address] Patient Discharge Instructions PERSON INFORMATION [...] None Follow up: With: Address: When: ALDEN WHEELER [address] [place] [address] Business (1) Comments: No need to see PCP at this time unless symptoms worsen. With: Address: When: Harley [place] [address] Business (1) 12/16/2024 9:45 AM In the event that this physician does not participate in your insurance network, please consult with your insurance company to find a nearby participating provider. Type Location Start Finish State [facility] [place] [facility] [place] 05/18/2025 8:00 AM 05/18/2025 8:15 AM Confirmed Comment: DELORES Abel SHIRLEY A, have received the attached patient education materials/instructions and have verbalized understanding: Patient Signature Date Clinican/Nurse Signature Date HERE ARE THE MEDICATION CHANGES THAT OCCURRED DURING YOUR HOSPITAL STAY Medications to Continue Taking That Have Changed [facility] [address], [address] [place] [id number], [phone] START: acetaminophen (acetaminophen 500 mg Tab) 1 Tablets By Mouth every 4 hours. Refills: 0. Last Dose: Next Dose: STOP: acetaminophen (Tylenol 8 HR Arthritis Pain) 650 Milligram By Mouth 2 times a day. STOP: acetaminophen (Tylenol) 500 Milligram By Mouth 2 times a day. Medications to Continue with No Changes Other Medications bimatoprost ophthalmic (Lumigan 0.01% ophthalmic solution) Ophthalmic every day. Last Dose: Next Dose: cholecalciferol (Vitamin D3) 125 Microgram. Last Dose: Next Dose: dorzolamide-timolol ophthalmic (dorzolamide-timolol Opth 2%-0.5% Becca) Ophthalmic every day. Last Dose: Next Dose: multivitamin with minerals (Womens Pack oral tablet) 1 Tablets By Mouth every day. Last Dose: Next Dose: omega-3 polyunsaturated fatty acids (Nature's Bounty Red Krill Oil 500 mg oral capsule) 1 cap By Mouth every day. Last Dose: Next Dose: potassium chloride (potassium chloride 99 mg oral tablet) 1 Tablets By Mouth every day. Last Dose: Next Dose: prednisoLONE ophthalmic (prednisoLONE Opth acetate 1% Susp 5 mL) 1 Drops. INSTILL 1 DROP INTO BOTH EYES 4 TIMES A DAY. Last Dose: Next Dose: tizanidine (tiZANidine 2 mg Tab) Last Dose: Next Dose: No Longer Take the Following Medications cefdinir [...] tizanidine (tiZANidine 2 mg Tab) Pharmacy Information: [facility] [place] Comment: PATIENT EDUCATION INFORMATION Instructions: [facility] (more content not included)...[facility] HospitalInterdisciplinary Note - Case Manageron 36-35-9102Bdvkoaqxmomkqkgnt Note - Case ManagerInterdisciplinary Note - Senior Sas Developer CM followed up with patient and at bedside. Plan is to DC home today with [facility]. Patient updated on program and has FWW in room. OT recs ADL kit and to get it at gift shop. Patient denies any additional needs at this time.Parkwood HospitalComment on above:Result Comment: Electronically Signed By: Sarah Espinal I\aiden\Date and Time Signed: 12/02/24 10:25 EDTLyteson 83-84-9703Ugxehcra [Moles/Vol]109 mmol/SObtwmn990-783SLJN HealthcareComment on above:Performed By: #### [id number] #### [facility] [address] [place] [address]JZ5 [Moles/Vol]27 mmol/EIbmgdx87-13GDHC HealthcareComment on above:Performed By: #### [id number] #### [facility] [address] [place], [place] [address]Agvryjwbq [Moles/Vol]4.1 mmol/LNormal3.5-5.3[facility] Comment on above:Performed By: #### [id number] #### [facility] [address] [place], [place] [address]Upznwd [Moles/Vol]140 mmol/KOkrpal632-025GWTA HealthcareComment on above:Performed By: #### [id number] #### [facility] [address] [place], [place] [address]Mjdtq gap [Moles/Vol]8 mmol/LNormal6-16FishUniversity of Maryland Medical CenterComment on above:Performed By: #### [id number] #### [facility] [address] [place], [place] [address]Nnhx OR Intraoperative Recordon 21-14-1213Imri OR Intraoperative RecordMain OR Intraoperative Record IntraOp Document Type FT Summary Primary Physician: Harley Arciniega DO Finalized Date/Time: 12/02/24 12:14:09 Pt. Name: DONNA ESTRELLA/Sex: 1950 Female Med Rec #: [id number] Physician: Harley Arciniega DO Financial #: [id number] Pt. Type: O Room/Bed: [place] [address] Admit/Disch: 12/01/24 05:29:31 - 12/02/24 11:46:26 Institution: Case Times FT Entry 1 Patient Times In Room 12/01/24 07:16:00 Out Room 12/01/24 09:35:00 Procedure Times Start 12/01/24 07:51:00 Stop 12/01/24 09:31:00 Anesthesia Times Start 12/01/24 07:16:00 Stop 12/01/24 09:35:00 Block Timeout w/ 12/01/24 07:03:00 Anesthesia Last Modified By: Alma Azar 12/01/24 09:35:20 General Comments: BLOCK TIME OUT AT 0703 WITH LARISA Germain CRNA AND L,NILAM CALDWELL. HEART RATE 62 BPM AND SPO2 97% ON SPO2 ROOM AIR.PATIENT TOLERATED WELL THEN TRANSPORTED TO THE OR.CAMI RODRIGUEZ. Case Attendance FT Entry 1 Entry 2 Entry 3 Case Attendee Larisa THOMPSON, Marta Arciniega DO, Alma Onofre Role Performed ROPE COILING MACHINE OPERATOR Surgeon - Primary Location Director - Primary Time In 12/01/24 07:16:00 12/01/24 07:40:00 12/01/24 07:16:00 Time Out 12/01/24 09:35:00 12/01/24 09:15:00 12/01/24 09:25:00 Procedure KNEE TOTAL ROBOT KNEE TOTAL ROBOT KNEE TOTAL ROBOT ARTHROPLASTY(Left) ARTHROPLASTY(Left) ARTHROPLASTY(Left) Comments IS SUPERVISING Last Modified By: Alma Azar Kelsie E Burgderfer, Kelsie E 12/01/24 09:39:18 12/01/24 09:39:18 12/01/24 09:39:18 Entry 4 Entry 5 Entry 6 Case Attendee Mane WILLAMS, Rosmery Espinosa PROFESSOR COMPUTER SCIENCE, Tim Luz RN Role Performed Scrub - Primary PROFESSOR COMPUTER SCIENCE/SA Staff - Other Time In 12/01/24 07:16:00 [...] Performed Staff - Other Staff - Other Location Director - Relief Time In 12/01/24 07:16:00 12/01/24 [...] Participants Harley Arciniega DO, Alma Azar, Mane CONTRACT LEAD, Jesús Arvizu CST, Arsenio Martinez RN, Tim [...] Case Level Level 6 (more content not included)...NormalFirelands Regional Medical CenterNo Panel Informationon 78-79-9570Krflolaq Ordering Provider: DO Harley Manrique [facility] HealthcareeGFRon 81-54-0768sYQD04 mL/min/1.73 h7Lndzca>=59Firelands Regional Medical CenterComment on above:Performed By: #### [id number] #### [facility] [address] [place], [place] [address]XGP/Rhon 03-02-4004BLS/RhPositiveInvalid Interpretation Code [facility] Medical CenterComment on above:Performed By: #### [id number] #### [facility] [address] [place], [place] [address]BBF/Rh History Checkon 70-53-9421KAI/Rh History CheckVerified Hx Blood TypeNormDayton Osteopathic HospitalComment on above:Performed By: #### [id number] #### [facility] [address] [place], [place] [address]ZUFVzj 43-16-9856LIHN Gel InterpNegativeNormalFirelands Regional Medical CenterComment on above:Performed By: #### [id number] ####[facility] [address] [place], [place] [address]WNUIO BANKOrdered By: Petty Zaldivar on 72-89-7776QPM/Rh InterpPositiveInvalid Interpretation Code [facility] BB SubsectionABSC Gel InterpNegative (12/01/24 6:22 AM)NormalHILLCREST HOS[facility] [place] BB SubsectionBlood Bank ID#on [id number] Invalid Interpretation CodeFirelands Regional Medical CenterComment on above:Performed By: #### [id number] #### [facility] [address] [place], [place] [address]Rmjqkhkrn Clinical Summaryon 03-01-7755Xppytocvj Clinical SummaryInpatient Clinical Summary [address] [address] Clinical Summary Person Information: Name: DONNA ESTRELLA Age: 74 Years : 1950 Sex: Female PCP: ALDEN WHEELER DO Marital Status: Race: White Ethnicity: Non- or Language: Japanese Visit Id: Visit Reason: LEFT KNEE OA Speciality: Acuity: Enc Type: Outpatient in a Bed Med Service: Surgery Arrival: 12/01/2024 05:29:31 Discharge: Dispo Type: Address: [address] [place] [phone] Provider Notes: Diagnosis: Degenerative arthritis of left [...] Follow up: With: Address: When: [place] [address] [facility] () 12/16/2024 9:45 AM Type Location Start [facility] [address] [place] Office Visit [facility] 05/18/2025 8:00 AM 05/18/2025 8:15 AM Confirmed Patient Education Information: Ignacio Arciniega - Total Knee Arthroplasty (Custom)[facility] Inpatient Patient Summaryon [id number] Patient SummaryInpatient Patient Summary [address] [address] Patient Discharge Instructions PERSON INFORMATION [...] Follow up: With: Address: When: [place] [address] [facility] () 12/16/2024 9:45 AM In the event that this physician does not participate in your insurance network, please consult with your insurance company to find a nearby participating provider. Type Location Start Finish [facility] [place] Office Visit [facility] 05/18/2025 8:00 AM 05/18/2025 8:15 AM Confirmed Comment: DELORES Abel SHIRLEY A, have received the attached patient education materials/instructions and have verbalized understanding: Patient Signature Date Clinican/Nurse Signature Date HERE ARE THE MEDICATION CHANGES THAT OCCURRED DURING YOUR HOSPITAL STAY Medications to Continue Taking That Have Changed [facility] [address], [address] [place], [place] [id number], [phone] START: acetaminophen (acetaminophen 500 mg Tab) 1 Tablets By Mouth every 4 hours. Refills: 0. Last Dose: Next Dose: STOP: acetaminophen (Tylenol 8 HR Arthritis Pain) 650 Milligram By Mouth 2 times a day. STOP: acetaminophen (Tylenol) 500 Milligram By Mouth 2 times a day. Medications to Continue with No Changes Other Medications bimatoprost ophthalmic (Lumigan 0.01% ophthalmic solution) Ophthalmic every day. Last Dose: Next Dose: cholecalciferol (Vitamin D3) 125 Microgram. Last Dose: Next Dose: dorzolamide-timolol ophthalmic (dorzolamide-timolol Opth 2%-0.5% Becca) Ophthalmic every day. Last Dose: Next Dose: multivitamin with minerals (Womens Pack oral tablet) 1 Tablets By Mouth every day. Last Dose: Next Dose: omega-3 polyunsaturated fatty acids (Nature's Bounty Red Krill Oil 500 mg oral capsule) 1 cap By Mouth every day. Last Dose: Next Dose: potassium chloride (potassium chloride 99 mg oral tablet) 1 Tablets By Mouth every day. Last Dose: Next Dose: prednisoLONE ophthalmic (prednisoLONE Opth acetate 1% Susp 5 mL) 1 Drops. INSTILL 1 DROP INTO BOTH EYES 4 TIMES A DAY. Last Dose: Next Dose: tizanidine (tiZANidine 2 mg Tab) Last Dose: Next Dose: No Longer Take the Following Medications cefdinir [...] tizanidine (tiZANidine 2 mg Tab) Pharmacy Information: [facility] Comment: PATIENT EDUCATION INFORMATION Instructions: [place], [place] [facility] DISCHARGE INSTRUCTIONS: TOTAL KNEE ARTHROPLASTY INCISION CARE: The bandage may be changed by your home Physical Therapist at 7 (more content not included)...[facility] HospitalInpatient Patient Summary Inpatient Patient Summary [address] [address] [facility] Clinical Discharge Instructions PERSON INFORMATION Name: DONNA ESTRELLA PHYSICIANS Admitting Physician: Harley Arciniega DO Attending Physician: Harley Arciniega DO PCP: ALDEN WHEELER DO Discharge Diagnosis: Degenerative arthritis of left knee Comment: PATIENT EDUCATION INFORMATION Instructions: Ignacio Arciniega - Total Knee Arthroplasty (Custom) Medication Leaflets: Follow up: With: Address: When: Harley Arciniega [address] [place] [address] [facility] (1) 12/16/2024 9:45 AM Type Location Start [facility] State [facility] [place] [facility] 05/18/2025 8:00 AM 05/18/2025 8:15 AM Confirmed MEDICATION LIST New Medications [facility], [address] [place], [place] [id number], [phone] aspirin (aspirin 81 mg Oral EC Tab) [...] Medications to Continue Taking That Have Changed [facility] [address], [address] [place], [place] [id number], [phone] START: acetaminophen (acetaminophen 500 mg Tab) 1 [...] Capsules By Mouth 2 times a day. Comment:[facility]wood HospitalInterdisciplinary Note - Case Manageron [id number] Note - Case ManagerInterdisciplinary Note - Senior Sas Developer CM met with patient at bedside. Patient is from home and lives with in a ranch style home with 2 [address]. Patient is usually independent with self care and had an old walker at home but was already set up with a new FWW in the room for DC. Patient states she has supportive family at home and family will transport her home at DC. Patient is [facility] with [facility] [place] [facility] [place]. CM reviewed OBS status with patient and JOSHUA already signed. Patient denies any additional DC needs at this time. CM to follow.Parkwood HospitalComment on above:Result Comment: Electronically Signed By: Sarah Espinal\Date and Time Signed: 12/01/24 13:27 EDTInterdisciplinary Note - OTon 12-01-2024 Interdisciplinary Note - OTInterdisciplinary Note - OT Ot [facility] services. Pt reports she will have family support from dtr and spouse when dcd to home and ortho 360 to follow up at home as well. OT serivces to follow 1-2 visits to instruct on adapted techniques for LE dressing and improve Ind w/ toilet transfers.[facility] Main OR Intraoperative Recordon [id number] OR Intraoperative RecordMain OR Intraoperative Record IntraOp Document Type FT Summary Primary Physician: Harley Arciniega DO Finalized Date/Time: 12/01/24 09:39:23 Pt. Name: DONNA ESTRELLA./Sex: 1950 Female Med Rec #: [id number] Physician: Harley Arciniega DO Financial #: [id number] Pt. Type: O Room/Bed: [place] [address] Admit/Disch: 12/01/24 05:29:31 - Institution: Case Times [...] Jason A Burgderfer, Kelsie E Role Performed JAY Surgeon - Primary Location Director - Primary Time In 12/01/24 07:16:00 12/01/24 07:40:00 12/01/24 07:16:00 Time Out 12/01/24 09:35:00 12/01/24 09:15:00 12/01/24 09:25:00 Procedure KNEE TOTAL ROBOT KNEE TOTAL ROBOT KNEE TOTAL ROBOT ARTHROPLASTY(Left) ARTHROPLASTY(Left) ARTHROPLASTY(Left) Comments IS SUPERVISING Last Modified By: Alma Azar Kelsie E Burgderfer, Kelsie E 12/01/24 09:39:18 12/01/24 09:39:18 12/01/24 09:39:18 Entry 4 Entry 5 Entry 6 Case Attendee Mane WILLAMS, Rosmery Espinosa PROFESSOR COMPUTER SCIENCE, Adriana Cesar RN, Tim Chávez Role Performed Scrub - Primary PROFESSOR COMPUTER SCIENCE/SA Staff - Other Time In 12/01/24 07:16:00 [...] Caldwell RN, CNOR, Carol Jarrell RN, Ruthann Fetlon Role Performed Staff - Other Staff - Other Location Director - Relief Time In 12/01/24 07:16:00 12/01/24 [...] Participants Harley Arciniega DO, Alma Azar, Mane CONTRACT LEAD, Rosmery Bedoya, Jesús QUIJANO, Arsenio Martinez RN, Tim Chávez Time Out [...] Class 1 - Clean (more content not included)...[facility] HospitalMain OR PACU I Recordon [id number] OR PACU I RecordMain OR PACU I Record PACU Phase I Document Type FT Summary Primary Physician: Harley Arciniega DO Finalized Date/Time: 12/01/24 11:52:47 Pt. Name: QIANA ESTRELLAHUMA Guerra/Sex: 1950 Female Med Rec #: [id number] Physician: Harley Arciniega DO Financial #: [id number] Pt. Type: O Room/Bed: [place] [address] Admit/Disch: 12/01/24 05:29:31 - Institution: Case Times [...] individualized perioperative plan of care The patient's rightto privacy is maintained The patient's value system, [...] with or improved from baseline levels established preoperativelyThe patient's cardiovascular status is consistent with or improved from baseline levels established preoperatively The patient's cardiovascular status is consistent with or improved from baseline levels established preoperatively The patient demonstrates and/or reports adequate pain control throughout the perioperative period The patient received appropriate medication(s), safely administered during the perioperativeperiod Acuity Level PACU I FT Entry 1 Start Time 12/01/24 09:37:00 Stop Time 12/01/24 10:26:00 Acuity Level Acuity Level I Last Modified By: Chanelle Zhu I 12/01/24 11:52:43 Finalized By: Chanelle Zhu I Document Signatures Signed By: Chanelle Zhu I 12/01/24 11:52NoUniversity Hospitals Samaritan Medical CenterMain OR Preoperative Recordon [id number] OR Preoperative RecordMain OR Preoperative Record PreOp Document Type FT Summary Primary Physician: Harley Arciniega DO Finalized Date/Time: 12/01/24 07:54:35 Pt. Name: JOHNSONSavanahDONNA/Sex: 1950 Female Med Rec #: [id number] Physician: Harley Arciniega DO Financial #: [id number] Pt. Type: O Room/Bed: [place] [address] Admit/Disch: 12/01/24 05:29:31 - Institution: Case Times [...] Document Signatures Signed By: Alma Azar 12/01/24 07:54NoUniversity Hospitals Samaritan Medical CenterOperative Reporton [id number] ReportOperative Report Patient: DONNA ESTRELLA Age: 74 years Sex: Female : 1950 Associated Diagnoses: None Author: Harley Arciniega DO DATE OF SURGERY: 12/01/2024 SURGEON: Harley Arciniega D.O. RELIEF MAN: Alberto Espinosa CFA PREOPERATIVE DIAGNOSIS: Advanced degenerative osteoarthrosis, left knee POSTOPERATIVE DIAGNOSIS: Advanced degenerative osteoarthrosis, left knee OPERATION: Left total knee arthroplasty utilizing [email or web address] robotic arm assistance ANESTHESIA: Spinal + regional block SURGICAL CONSULTANT: Marta Peres CRNA and Adriana Boone MD IMPLANTS USED: [place] [employer] Total Knee System 1. size 5 [...] surgery was preplanned utilizing CT scan and SNAPP' software. This included the planned implant sizes [...] I requested the nerve block to assist withintraoperative and postoperative pain control. She was transported to the Operating Room and administered a spinal anesthetic. She was then placedsupine on the operating room table and a well padded tourniquet was applied to the operative upper thigh. The left upper extremity was secured across the patient's torso. The operative lower extremity was then prepped and draped in the usual sterile fashion. The foot was placed into a padded reagan and secured in the [employer] knee positioner. Surgical time-out was performed with [...] guidance using the saw attached to the SNAPP' robotic arm. Femoral cuts were made including anterior, posterior, and chamfer cuts. The tibial cut was then made in the same fashion. The resected bone fragments were removed with osteotomes and freed from tissue with the bovie. [employer] brand strategy manager was placed into the joint. Remaining meniscus and soft tissue were removed from the medial and lateral compartments. Posterior osteophytes removed from the condyles with an osteotome. Loose b (more content not included)...Parkwood HospitalComment on above:Result Comment: Electronically Signed By: Harley Arciniega DO\aiden\Date and Time Signed: 12/01/24 15:32 EDTOutpatient Surgery Discharge Instructionon [id number] Surgery Discharge InstructionOutpatient Surgery Discharge Instruction [address] [address] Patient Discharge Instructions PERSON INFORMATION Name: DONNA ESTRELLA Date of : 1950 Current Date: 12/01/2024 07:13:41 PHYSICIANS Admitting Physician: Harley Arciniega DO Discharge Diagnosis: Degenerative arthritis of left knee APURVASPENCERQIANA PavonHUMA Reyes has been given the following list of [...] were given Patient Signature Date Clinican/Nurse Signature Date Follow up: With: Address: When: Harley Arciniega [address] [place] [address] Business (1) 12/16/2024 9:45 AM Type Location Start Finish [facility] [place] [facility] [place] 05/18/2025 8:00 AM 05/18/2025 8:15 AM Confirmed [...] to serve you. Thank you for choosing [facility] HERE ARE THE MEDICATION CHANGES THAT OCCURRED DURING YOUR HOSPITAL STAY New Medications [employer] [facility] [address], [address], [place] [id number], [phone] aspirin (aspirin 81 mg Oral EC Tab) [...] Medications to Continue Taking That Have Changed [employer] [facility] [address], [address], [place] [id number], [phone] START: acetaminophen (acetaminophen 500 mg Tab) 1 [...] times a day. PATIENT EDUCATION INFORMATION Instructions: [place], [place] [facility] DISCHARGE INSTRUCTIONS: TOTAL KNEE [...] stomach upset, constipation, or (more content not included)...Parkwood HospitalProceduralon [id number] Procedural Patient: DONNA ESTRELLA Age: 74 years [...] patient, Number of attempts 1, Negative attempt ataspiration for blood, Periodic negative attempts at aspiration of blood were made as the local was injected, No pain or parathesia were elicited with injection of the anesthetic in the conscious patient, It was idetified that the correct anesthetic agent was administered to the correct site. Complications: The patient tolerated the procedure as expected.Parkwood HospitalProceduralProcedural Patient: DONNA ESTRELLA Age: 74 years Sex: [...] list: All Problems Anemia / SNOMED CT 650054073 / Confirmed Arthritis / SNOMED CT 3614343 / Confirmed Asymptomatic microscopic hematuria / SNOMED CT 7772941373 / Confirmed BMI 36.0-36.9,adult / SNOMED CT 003771380 / Confirmed Former smoker / SNOMED CT 94426591 / Confirmed Kidney stones / SNOMED CT 297163138 / Confirmed Mixed incontinence / SNOMED CT 28449593 / Confirmed Nocturia / SNOMED CT 164780503 / Confirmed Renal cysts, acquired, bilateral / SNOMED CT 731474874 / Confirmed Ureteral stone / SNOMED CT 84903221 / Confirmed Ureteral stone with hydronephrosis / SNOMED CT 1836433144 / Confirmed, Active Problems (11) Anemia Arthritis [...] Cataract extraction and insertion of intraocular lens (5780563604) on 2020 at 70 Years. Cataract extraction and insertion of intraocular lens (1644101777) on 03/21/2020 at 69 Years. Cholecystectomy (23235862). Procedure on knee (217859569). Sclerotherapy of vein of lower limbs (8262674814). Comments: 11/18/2024 10:38 EDT - Adams ALMANZA, Keyonna Morocho 2022 Open r (more content not included)...Parkwood HospitalXR KNEE 1 OR 2 VIEWS LEFTon 12-01-2024 [...] Yung Alberts MD Transcribed by: RONY Technologist: [facility] CL[facility]EMORERadiology, Radiologist, MD - 12/01/2024 Exam Date/Time: 12/01/2024 [...] Alberts MD Transcribed by: RONY Technologist: BRAULIO YI HealthcareRadiology Study observation (narrative)NOMS HealthcareXR KNEE 1 OR 2 VIEWS LEFTOrdered By: Radiologist Radiology on [id number] [employer] Work Phone: XR Knee 1 or 2 Views Lefton 34-50-1112YP Knee 1 or 2 Views LeftExam Date/Time: 12/01/2024 09:56 EDT Reason for Exam: [...] Yung Alberts MD Transcribed by: RONY Technologist: [facility]anePremier Health Urineon [id number] identified Cx Nom (U)Microbiology PROCEDURE: Urine Culture [R1] SOURCE: U CleanCatch BODY SITE: COLLECTED DATE/TIME: 11/18/2024 11:05 EDT RECEIVED DATE/TIME: 11/18/2024 12:09 EDT START DATE/TIME: 11/18/2024 12:09 EDT FREE TEXT SOURCE: Harley Arciniega DO, DO, Jason A FINAL REPORTS Final Report [] Verified Date/Time: 11/20/2024 10:15 EDT 95,000 cfu/ml Escherichia coli SUSCEPTIBILITY RESULTS LEGEND: S=Susceptible, N/R=Not Reported, Blank=Data not available, or drug not advisable or tested, I=Intermediate, ESBL=Extended spectrum beta-lactamase, R=Resistant, TFG=Thymidine-dependent strain, ESPERANZA=Beta-lactamase positive, MITCH=mcg/m;(mg/L), S*=Predicted susceptible interp, [...] Locations R1: This test was performed at: [facility], [address] [place] [address], [phone] , , QrxqgsUtoduyParkwood HospitalComment on above:Performed By: #### [id number] #### [facility] [address] [place], [place] [address]SPX/Rh Retypeon 92-07-9283FIL/Rh Retype InterpPositiveInvalid Interpretation CodeFirelands Regional Medical CenterComment on above:Performed By: #### [id number] #### [facility] [address] [place], [place] [address]ABLDW BANKOrdered By: Claudia Palomo on 40-64-1431TPR/Rh Retype InterpPositiveInvalid Interpretation [facility] BB SubsectionBMPon 53-29-2419Bslpe gap [Moles/Vol]8 mmol/LNormal6-16[facility] Medical CenterComment on above: Performed By: #### [id number] #### [facility] [address] [place], [place] [address]Gutttst [Mass/Vol]9.5 mg/dLNormal8.9-11.1FHolmes County Joel Pomerene Memorial HospitalComment on above:Performed By: #### [id number] #### [facility] [address] [place], [place] [address]Hhdrckuw [Moles/Vol]107 mmol/IOqtsah028-589FkqbnnFirelands Regional Medical CenterComment on above:Performed By: #### [id number] #### [facility] [address] [place], [place] [address]IP9 [Moles/Vol]29 mmol/LEcjmcg90-79KqwtrrFirelands Regional Medical Center Comment on above:Performed By: #### [id number] #### [facility] [address] [place], [place] [address]Chtbmgwlcr [Mass/Vol]0.5 mg/dLNormal0.5-1.3[facility] CampusComment on above:Performed By: #### [id number] #### [facility] [address] [place], [place] [address]Yjqcedr [Mass/Vol]101 mg/sPFaxlia89-646RdownhFirelands Regional Medical CenterComment on above:Performed By: #### [id number] #### [facility] [address] [place], [place] [address]Mhoshvrpr [Moles/Vol]4.3 mmol/LNormal3.5-5.3FHolmes County Joel Pomerene Memorial HospitalComment on above:Performed By: #### [id number] #### [facility] [address] [place] [address]Tspbqe [Moles/Vol]140 mmol/LChrwvx729-679UrlcfqFirelands Regional Medical CenterComment on above:Performed By: #### [id number] #### [facility] [address] [place], [place] [address]Feuo nitrogen [Mass/Vol]26 mg/dLHigh5-21Fire[facility] Medical CenterComment on above:Performed By: #### [id number] #### [facility] [address] [place] [address]Imhc nitrogen/Creatinine [Mass ratio]52 No WkwshNccj38-04JvvfgoFirelands Regional Medical CenterComment on above:Performed By: #### [id number] #### [facility] [address] [place] [address]LHJ w/ Auto Diffon 67-09-0289Yqjzdyogbvkv Ql (Bld)PRESENT Invalid Interpretation CodeFirelands Regional Medical CenterComment on above:Performed By: #### [id number] #### [facility] [address] [place] [address]Vimzmcbyq/100 WBC (Bld)0.7 %Normal0.0-2.0[facility] Medical CenterComment on above:Performed By: #### [id number] #### [facility] [address] [place] [address]Bcsdxfygu/Leukocytes Auto (Bld) [Pure # fraction]0.0 E9/LNormal 0.0-0.2FHolmes County Joel Pomerene Memorial HospitalComment on above:Performed By: #### [id number] #### [facility] [address] [place] [address]Ywmjtsoulmk (Bld) [#/Vol]0.2 E9/LNormal0.0-0.5FHolmes County Joel Pomerene Memorial HospitalComment on above:Performed By: #### [id number] #### [facility] [address] [place], [place] [address]Ytwepodzeth/100 WBC (Bld)3.8 %Normal0.0-8.0[facility] Medical CenterComment on above:Performed By: #### [id number] #### [facility] [address] [place] [address]Ewerwqsvfxb distribution width (RBC) [Ratio]16.0 %High10.9-14.2 [facility] Medical CenterComment on above:Performed By: #### [id number] #### [facility] [address] [place] [address]Hdpkmbogxw (Bld) [Volume fraction]37.5 %Xebxue58.0-46.0[facility] Medical CenterComment on above:Performed By: #### [id number] #### [facility] [address] [place] [address]Ecwmhsixrx (Bld) [Mass/Vol]11.7 g/dLLow12.0-16.0[facility] Medical CenterComment on above:Performed By: #### [id number] #### [facility] [address] [place] [address]Faahjnerwgm Auto Ql (Bld)PRESENTInvalid Interpretation Code [facility] CenterComment on above:Performed By: #### [id number] #### [facility] [address] [place] [address]Pcwubhxqohi (Bld) [#/Vol]1.5 E9/LNormal1.0-4.0[facility] Medical CenterComment on above:Performed By: #### [id number] #### [facility] [address] [place] [address]Cfjywggfhag/100 WBC (Bld)30.0 %Ksqprr84.0-50.0[facility] Medical CenterComment on above:Performed By: #### [id number] #### [facility] [address] [place] [address]JGN (RBC) [Entitic mass]20.5 pgLow27.0-34.0[facility] Medical CenterComment on above:Performed By: #### [id number] #### [facility] [address] [place] [address]CAVJ (RBC) [Mass/Vol]31.3 g/dLLow31.4-36.0[facility] Medical CenterComment on above:Performed By: #### [id number] #### [facility] [address] [place] [address]UEN (RBC) [Entitic vol]65.4 fLLow80.0-100.0[facility] Medical CenterComment on above:Performed By: #### [id number] #### [facility] [address] [place] [address]Bosadhrfc (Bld) [#/Vol]0.5 E9/LNormal0.2-1.0[facility] Medical CenterComment on above:Performed By: #### [id number] #### [facility] [address] [place] [address]Qenakgduewd (Bld) [#/Vol]2.9 E9/LNormal2.0-7.5FHolmes County Joel Pomerene Memorial HospitalComment on above:Performed By: #### [id number] #### [facility] [address] [place] [address]Yfejicezvay/100 WBC (Bld)56.3 %Zdlgwb28.0-75.0[facility] Medical CenterComment on above:Performed By: #### [id number] #### [facility] [address] [place], [place] [address]Duaiidyxkq LM Ql (Bld)PRESENTInvalid Interpretation CodeFirelands Regional Medical CenterComment on above:Performed By: #### [id number] #### [facility] [address] [place] [address]Ciqbmhdh736.0 E9/GPtyrjq059.0-500.0[facility] Comment on above:Performed By: #### [id number] #### [facility] [address] [place], [place] [address]Uinvwyka mean volume (Bld) [Entitic vol]9.1 fLNormal6.4-10.8 [facility] CenterComment on above:Performed By: #### [id number] #### [facility] [address] [place], [place] [address]MDJ (Bld) [#/Vol]5.7 E12/LNormal4.3-5.9[facility] Medical CenterComment on above:Performed By: #### [id number] #### [facility] [address] [place], [place] [address]JPW size Nom (Bld)SEE MORPHOLOGYInvalid Interpretation Code [facility] CenterComment on above:Performed By: #### [id number] #### [facility] [address] [place] [address]VVH corrected for nucl RBC Auto (Bld) [#/Vol]5.1 E9/LNormal 4.0-11.0[facility] Medical CenterComment on above:Performed By: #### [id number] #### [facility] [address] [place], [place] [address]DQGGJLBKFHzlpeku By: SYSTEM SYSTEM on 32-27-4037Fhcad gap [Moles/Vol]8 mmol/LNormal6 - 16 mEq/LRemisol ChemCalcium [Mass/Vol]9.5 mg/dL Normal8.9 - 11.1 mg/dLRemisol ChemChloride [Moles/Vol]107 mmol/MWuqvyr740 - 111 mmol/LRemisol ChemCO2 [Moles/Vol]29 mmol/XOgassp75 - 31 mmol/LRemisol Chem Creatinine [Mass/Vol]0.5 mg/dLNormal0.5 - 1.3 mg/dLRemisol HdzfgTCD01 mL/min/1.73 h5Zscpvz>=59mL/min/1.73 e7Oibpssv ChemGlucose [Mass/Vol]101 mg/dL Enjszh59 - 199 mg/dLRemisol ChemPotassium [Moles/Vol]4.3 mmol/LNormal3.5 - 5.3 mmol/LRemisol ChemSodium [Moles/Vol]140 mmol/DDxnvgc343 - 145 mmol/LRemisol Chem Urea nitrogen [Mass/Vol]26 mg/dLHigh5 - 21 mg/dLRemisol ChemUrea nitrogen/Creatinine [Mass ratio]52 mg/qgZidk89 - 20Remisol ChemCT LOWER EXTREMITY W/O CONTRAST LEFTon 11-18-2024 Exam Date/Time: 11/18/2024 11:23 EDT [...] Alden Acuña MD Transcribed by: RONY Technologist: [facility] ROSWELLRadiology, Radiologist, - 11/18/2024 Exam Date/Time: 11/18/2024 11:23 [...] RONY Technologist: [facility] HealthcareRadiology Study observation (narrative)[facility] HospitalCT LOWER EXTREMITY W/O CONTRAST LEFTOrdered By: Radiologist Radiology on 91-47-1678HGCZ [employer] Work Phone: ct Lower Extremity w/o Contrast Lefton 09-71-7182OU Lower Extremity w/o Contrast LeftExam Date/Time: 11/18/2024 11:23 EDT Reason for Exam: [...] Alden Acuña MD Transcribed by: RONY Technologist: [facility] HospitalHEMATOLOGY Ordered By: SYSTEM SYSTEM on 97-49-2633Mrppfdrzetad Ql (Bld)PRESENT *NA* (11/18/24 11:05 AM)Invalid Interpretation CodeRemisol HemeBasophils/100 WBC (Bld) 0.7 %Normal0.0 - 2.0 %Remisol HemeBasophils/Leukocytes Auto (Bld) [Pure # fraction]0.0 E9/LNormal0.0 - 0.2 E9/LRemisol HemeEosinophils (Bld) [#/Vol]0.2 E9/LNormal0.0 - 0.5 E9/LRemisol HemeEosinophils/100 WBC (Bld)3.8 %Normal0.0 - 8.0 %Remisol HemeErythrocyte distribution width (RBC) [Ratio]16.0 %High10.9 - 14.2 %Remisol HemeHematocrit (Bld) [Volume fraction]37.5 %Qapyzp76.0 - 46.0 % Remisol HemeHemoglobin (Bld) [Mass/Vol]11.7 g/dLLow12.0 - 16.0 gm/dLRemisol Heme Hypochromia Auto Ql (Bld)PRESENT *NA* (11/18/24 11:05 AM)Invalid Interpretation CodeRemisol HemeLymphocytes (Bld) [#/Vol]1.5 E9/LNormal1.0 - 4.0 E9/LRemisol HemeLymphocytes/100 WBC (Bld)30.0 % Psrjfj49.0 - 50.0 %Remisol HemeMCH (RBC) [Entitic mass]20.5 pgLow27.0 - 34.0 pg Remisol HemeMCHC (RBC) [Mass/Vol]31.3 g/dLLow31.4 - 36.0 gm/dLRemisol HemeMCV (RBC) [Entitic vol]65.4 fLLow80.0 - 100.0 fLRemisol HemeMonocytes (Bld) [#/Vol] 0.5 E9/LNormal0.2 - 1.0 E9/LRemisol HemeMonocytes/100 WBC (Bld)9.2 %Normal4.0 - 14.0 %Remisol HemeNeutrophils (Bld) [#/Vol]2.9 E9/LNormal2.0 - 7.5 E9/LRemisol HemeNeutrophils/100 WBC (Bld)56.3 %Pfivpv31.0 - 75.0 %Remisol HemeOvalocytes LM Ql (Bld)PRESENT *NA* (11/18/24 11:05 AM)Invalid Interpretation CodeRemisol VlqfVxoaemte549.0 E9/L Fsmghg276.0 - 500.0 E9/LRemisol HemePlatelet mean volume (Bld) [Entitic vol]9.1 fLNormal6.4 - 10.8 fLRemisol HemeRBC (Bld) [#/Vol]5.7 E12/LNormal4.3 - 5.9 E12/L Remisol HemeRBC size Nom (Bld)SEE MORPHOLOGY *NA* (11/18/24 11:05 AM)Invalid Interpretation CodeRemisol HemeWBC corrected for nucl RBC Auto (Bld) [#/Vol]5.1 E9/LNormal4.0 - 11.0 E9/LRemisol HemeUA WITH CULT RFLX on 25-03-1174QFCOXTOZ:PRTHR:PT:URINE:ORD:AUTOMATED1+AbnormalTrace /HPFSaint John's Saint Francis HospitalBILIRUBIN:PRTHR:PT:URINE:ORD:TEST STRIP.AUTOMATEDNegativeNegative mg/dLSaint John's Saint Francis HospitalEPITHELIAL CELLS.SQUAMOUS:NARIC:PT:URINE SED:QN:AUTOMATED COUNT3-4CD:[id number] Regional Medical Center CLARITY:TYPE:PT:URINE:NOM:ClearClear [facility] CLASS:TYPE:PT:URINE COLLECTION METHOD:NOM:*Clean CatchNevada Regional Medical Center COLOR:TYPE:PT:URINE:NOM:AUTOYellowYellowSaint John's Saint Francis HospitalComment on above:Microscopic readings are only performed on those samples that meet specific criteria set forth by [facility] PH:LSCNC:PT:URINE:QN:TEST STRIP6.55.0 - 9.0[facility] SPECIFIC GRAVITY:RDEN:PT:URINE:QN:TEST STRIP1.0231.005 - 1.030NOCox [place] GLUCOSE:PRTHR:PT:URINE:ORD:TEST STRIPNegativeNegative mg/dLNOOR Healthcare HEMOGLOBIN:MCNC:PT:URINE:SEMIQN:TEST STRIP.AUTOMATEDNegativeNegative mg/dLNOOR HealthcareInterpretation and review of laboratory resultsAbTrinity Health Livingston Hospital KETONES:PRTHR:PT:URINE:ORD:TEST STRIP.AUTOMATEDNegativeNegative mg/dLNOOR HealthcareLEUKOCYTE ESTERASE:PRTHR:PT:URINE:ORD:TEST STRIP.FYHHSLDHQ983 Kamaljit/uL AbnormalNegative CD:[id number] John's Saint Francis HospitalLEUKOCYTES:NARIC:PT:URINE SED:QN:AUTOMATED COUNT6-15AbnoSpecial Care Hospital MUCUS:PRTHR:PT:URINE:ORD:AUTOMATEDTraceNegative CD:[id number] John's Saint [facility] Hospital NITRITE:PRTHR:PT:URINE:ORD:TEST STRIP.AUTOMATEDNegativeNegative mg/dLNOOR HealthcarePROTEIN:PRTHR:PT:URINE:ORD:TEST STRIPNegativeNegative mg/dLNOCox MonettUROBILINOGEN:MCNC:PT:URINE:SEMIQN:TEST STRIPNegativeNegative mg/dLNOOR HealthcareOriginal Ordering Provider: DO Harley ArciniegaSelect [facility] UA with Cult Rflxon 11-31-7451Yjfarewg Auto Ql (U)1+ /HPFAbnormalTraceFirelands Regional Medical CenterComment on above:Performed By: #### [id number] #### [facility] [address] [place], [place] [address]Bvtmxnvsd Ql (U)NegativeNormalNegKettering Health Main CampusComment on above:Performed By: #### [id number] #### [facility] [address] [place], [place] [address]Rgezdlt (U)ClearNormalClearFirelands Regional Medical CenterComment on above:Performed By: #### [id number] #### [facility] [address] [place], [place] [address]Jpocz (U)YellowNormalYellowFirelands Regional Medical CenterComment on above:Result Comment: Microscopic readings are only performed on those samples that meet specific criteria set forth by [facility].Performed By: #### [id number] #### [facility] [address] [place], [place] [address]Ylfouruxad cells.squamous Auto (Urine sed) [#/Area]3-4Invalid Interpretation CodeFirelands Regional Medical CenterComment on above:Performed By: #### [id number] #### [facility] [address] [place], [place] [address]Mgvckfs Ql (U)NegativeNormalNegKettering Health Main Campus Comment on above:Performed By: #### [id number] #### [facility] [address] [place], [place] [address]Vbfvwsbwuy Auto test strip (U) [Mass/Vol]NegativeNormalNegative [facility] CenterComment on above:Performed By: #### [id number] #### [facility] [address] [place], [place] [address]Yysxcil Auto test strip Ql (U)NegativeNormalNegativeFirelands Regional Medical CenterComment on above:Performed By: #### [id number] #### [facility] [address] [place], [place] [address]Xhnxlgfdp esterase Auto test strip Ql (U)250 Kamaljit/uLAbnormal NegativeFirelands Regional Medical CenterComment on above:Performed By: #### [id number] #### [facility] [address] [place], [place] [address]Oglyt Auto Ql (U)TraceNormalNegKettering Health Main Campus Comment on above:Performed By: #### [id number] #### [facility] [address] [place], [place] [address]Aaduoht Auto test strip Ql (U)NegativeNormalNegativeFirelands Regional Medical CenterComment on above:Performed By: #### [id number] #### [facility] [address] [place] [address]oQ (U)6.5 [pH]Invalid Interpretation Code5.0-9.0[facility] Medical CenterComment on above:Performed By: #### [id number] #### [facility] [address] [place] [address]Wklewle Ql (U)NegativeNormalNegativeFirelands Regional Medical Center Comment on above:Performed By: #### [id number] #### [facility] [address] [place] [address]Qthlcjog gravity (U) [Rel density]1.023Invalid Interpretation Code1.005-1.030[facility] Medical CenterComment on above:Performed By: #### [id number] #### [facility] [address] [place] [address]Yssjaxzhqnac (U) [Mass/Vol]NegativeNormalNegativeFirelands Regional Medical CenterComment on above:Performed By: #### [id number] #### [facility] [address] [place] [address]PGD Auto (Urine sed) [#/Area]8-17Ywajzkuq4-0NjhuvyHolmes County Joel Pomerene Memorial HospitalComment on above:Performed By: #### [id number] #### [facility] [address] [place] [address]Tllf of Urine collection methodClean CatchNormalFirelands Regional Medical CenterComment on above:Performed By: #### [id number] #### [facility] [address] [place] [address]KYQVJZIOSDWyrmygi By: SYSTEM SYSTEM on 54-45-5639Nkoconhq Auto Ql (U)1+ /HPFInvalid Interpretation CodeTrace/HPFFT UA Auto SSBilirubin Ql (U) NegativeNormalNegativemg/dLFT UA Auto SSClarity (U)Clear (11/18/24 11:05 AM)NormalClearFTMC UA Auto SSColor (U)Yellow 1 (11/18/24 11:05 AM)NormalYellowHILLCREST HOS[facility]ITAL [facility] UA Auto SSComment on above:Interpretive Data: Microscopic readings are only performed on those samples that meet specific criteria set forth by [facility].Epithelial cells.squamous Auto (Urine sed) [#/Area]3-4 graded/HPFInvalid Interpretation CodeHILLCREST [facility] [place] Auto SSGlucose Ql (U)NegativeNormalNegativemg/dLHILLCREST [facility] [place] [facility] Auto SS Hemoglobin Auto test strip (U) [Mass/Vol]NegativeNormalNegativemg/dLHILLCREST [facility] [place] Auto SSKetones Auto test strip Ql (U)NegativeNormalNegativemg/dLHILLCREST [facility] [place] [facility] Auto SS Leukocyte esterase Auto test strip Ql (U)250 Kamaljit/uL Kamaljit/uLInvalid Interpretation CodeNegativeLeu/uLHILLCREST HOSPITAL [facility] [place] UA Auto SSMucus Auto Ql (U)Trace graded/LPFNormal Negativegraded/LPFFTMC UA Auto SSNitrite Auto test strip Ql (U)NegativeNormal Negativemg/dLHILLCREST [facility] [place] UA Auto SSpH (U)6.5 *NA* (11/18/24 11:05 AM)Invalid Interpretation Code5.0 - 9.0[facility] [place] [facility] Auto SSProtein Ql (U)NegativeNormalNegativemg/dLHILLCREST [facility] [place] [facility]A Auto SSSpecific gravity (U) [Rel density] 1.023 *NA* (11/18/24 11:05 AM)Invalid Interpretation Code1.005 - 1.030[facility] [place] [facility] Auto SS Urobilinogen (U) [Mass/Vol]NegativeNormalNegativemg/dLHILLCREST [facility] [place] [facility] Auto SSWBC Auto (Urine sed) [#/Area]6-15 graded/HPFInvalid Interpretation Code0-5graded/HPFHILLCREST HOSP[facility] [place] [facility] Auto SSURINALYSISOrdered By: Keyonna Lamas on 70-32-5073CC Spec DescClean Catch (11/18/24 11:05 AM)NormalHILLCREST HOS[facility] [place] UA Auto SSeGFRon 29-29-2476kPMO83 mL/min/1.73 m2 Normal>=59Fisher [facility] Midtown CampusComment on above:Performed By: #### [id number] #### [facility] [address] [place] [id number] Panel Informationon 80-30-8175ArlsuAdriana Flores, 06/17/2024 8:42 AM L Inj/Asp: R knee on 06/15/2024 12:14 PM Indications: pain Details: 21 G needle, anterolateral approach Medications: 2 mL SynoJoynt 20 MG/2ML Outcome: tolerated well, no immediate complications Procedure, treatment alternatives, risks and benefits explained, specific risks discussed. Consent was given by the patient. [facility] 21-03-1539ThmvrAdriana Flores, 06/08/2024 1:12 PM L Inj/Asp: R knee on 06/08/2024 10:49 AM Indications: pain Details: 21 G needle, anterolateral approach Medications: 2 mL SynoJoynt 20 MG/2ML Outcome: tolerated well, no immediate complications Procedure, treatment alternatives, risks and benefits explained, specific risks discussed. Consent was given by the patient. [facility] 57-62-9889Pdrtm A Sandra, DO 06/01/2024 12:36 PM L Inj/Asp: R knee on 06/01/2024 9:48 AM Indications: pain Details: 21 G needle, anterolateral approach Medications: 2 mL SynoJoynt 20 MG/2ML Outcome: tolerated well, no immediate complications Procedure, treatment alternatives, risks and benefits explained, specific risks discussed. Consent was given by the patient. [facility] Urineon 09-44-1147Zpqbixhi identified Cx Nom (U) Microbiology PROCEDURE: Urine Culture [R1] SOURCE: U CleanCatch BODY SITE: COLLECTED DATE/TIME: 05/12/2024 10:44 EDT RECEIVED DATE/TIME: 05/12/2024 18:59 EDT START DATE/TIME: 05/12/2024 18:59 EDT FREE TEXT SOURCE: Lorne GONZALEZ, Ramila Pradhan MD, Ramila Pascal FINAL REPORTS Final Report [] Verified Date/Time: 05/14/2024 10:30 EDT 75,000 cfu/ml Escherichia coli SUSCEPTIBILITY RESULTS LEGEND: S=Susceptible, N/R=Not Reported, Blank=Data not available, or drug not advisable or tested, I=Intermediate, ESBL=Extended spectrum beta-lactamase, R=Resistant, TFG=Thymidine-dependent strain, ESPERANZA=Beta-lactamase positive, MITCH=mcg/m;(mg/L), S*=Predicted susceptible interp, [...] Locations R1: This test was performed at: [facility], [address] [place] [address], [address]- , , QqgphuUtgfbqUniversity Hospitals Samaritan Medical CenterComment on above:Performed By: #### [id number] #### [facility] [address] [place] [id number] By: SYSTEM SYSTEM on 65-98-5218Ntjyserm Auto Ql (U)4+ /HPFInvalid Interpretation CodeTrace/HPFFT UA Auto SSBilirubin Ql (U) NegativeNormalNegativemg/dLFTMC UA Auto SSClarity (U)Ex.Turbid *ABN* (05/12/24 10:44 AM)Invalid Interpretation CodeClearFTMC UA Auto SSColor (U) [place] 1 *ABN* (05/12/24 10:44 AM)Invalid Interpretation CodeYellowFTMC UA Auto SSComment on above:Interpretive Data: Microscopic readings are only performed on those samples that meet specific criteria set forth by [facility].Crystals.amorphous Computer assisted Ql (U)Present graded/HPFInvalid Interpretation CodeFT UA Auto SSGlucose Ql (U)NegativeNormalNegativemg/dLFT UA Auto SSHemoglobin Auto test strip (U) [Mass/Vol]1+ mg/dLInvalid Interpretation CodeNegativemg/dLFTMC UA Auto SSKetones Auto test strip Ql (U) NegativeNormalNegativemg/dLFTMC UA Auto SSLeukocyte esterase Auto test strip Ql (U)75 Kamaljit/uL Kamaljit/uLInvalid Interpretation CodeNegativeLeu/uLFT UA Auto SSMucus Auto Ql (U)3+ graded/LPFInvalid Interpretation CodeNegativegraded/LPFFTMC UA Auto SSNitrite Auto test strip Ql (U)NegativeNormalNegativemg/dLFTMC UA Auto SS pH (U)5.5 *NA* (05/12/24 10:44 AM)Invalid Interpretation Code5.0 - 9.0FT UA Auto SSProtein Ql (U)NegativeNormalNegativemg/dLFTMC UA Auto SSSpecific gravity (U) [Rel density] 1.023 *NA* (05/12/24 10:44 AM)Invalid Interpretation Code1.005 - 1.030FTMC UA Auto SS Urobilinogen (U) [Mass/Vol]NegativeNormalNegativemg/dLFT UA Auto SSURINALYSIS Ordered By: Dilia Henriquez on 75-72-5823JK Spec DescClean Catch (05/12/24 10:44 AM)NormalFTMC UA Auto SSUrinalysis with Microon 05-12-2024 Bacteria Auto Ql (U)4+ /HPFAbnormalTraceFirelands Regional Medical CenterComment on above:Performed By: #### [id number] #### [facility] [address] [place], [place] [address]Innhpkqvz Ql (U)NegativeNormalNegativeFirelands Regional Medical CenterComment on above:Performed By: #### [id number] #### [facility] [address] [place], [place] [address]Oixqgoj (U)Ex.TurbidAbnormalClearFisher [facility] Comment on above:Performed By: #### [id number] #### [facility] [address] [place], [place] [address]Cfafi (U)Light-OrangeAbnoalYKettering Health Troy Comment on above:Result Comment: Microscopic readings are only performed on those samples that meet specific criteria set forth by [facility].Performed By: #### [id number] #### [facility] [address] [place], [place] [address]Qfatvsvo.amorphous Computer assisted Ql (U)PresentAbnormal [facility] CenterComment on above:Performed By: #### [id number] #### [facility] [address] [place], [place] [address]Nxxfyah Ql (U)NegativeNormalNegKettering Health Main Campus Comment on above:Performed By: #### [id number] #### [facility] [address] [place], [place] [address]Fsatoceakj Auto test strip (U) [Mass/Vol]1+ mg/dLAbnormal [facility] HospitalComment on above:Performed By: #### [id number] #### [facility] [address] [place], [place] [address]Czdwlug Auto test strip Ql (U)NegativeNormalNegKettering Health Main CampusComment on above:Performed By: #### [id number] #### [facility] [address] [place] [address]Nqvalbgwp esterase Auto test strip Ql (U)75 Kamaljit/uLAbnormal NegativeFirelands Regional Medical CenterComment on above:Performed By: #### [id number] #### [facility] [address] [place] [address]Uuwlr Auto Ql (U)3+ CD:[id number] [facility]itus Medical CenterComment on above:Performed By: #### [id number] #### [facility] [address] [place] [address]Zsnvlvy Auto test strip Ql (U)NegativeNormalNegKettering Health Main CampusComment on above:Performed By: #### [id number] #### [facility] [address] [place] [address]iQ (U)5.5 [pH]Invalid Interpretation Code5.0-9.0[facility] CenterComment on above:Performed By: #### [id number] #### [facility] [address] [place] [address]Ywwaboc Ql (U)NegativeNormalHighland District Hospital Comment on above:Performed By: #### [id number] #### [facility] [address] [place] [address]Eedelzxy gravity (U) [Rel density]1.023Invalid Interpretation Code1.005-1.030[facility] CenterComment on above:Performed By: #### [id number] #### [facility] [address] [place] [address]Jgkdwfscjcwh (U) [Mass/Vol]NegativeNormalNegKettering Health Main CampusComment on above:Performed By: #### [id number] #### [facility] [address] [place] [address]Zczj of Urine collection methodClean CatchNormDayton Osteopathic HospitalComment on above:Performed By: #### [id number] #### [facility] [address] [place], [place] [address]Hmezvtypm studyon 47-12-7288WKPSSaint John's Saint Francis HospitalRadiology Study observation (narrative)[facility] Informationon 19-84-2048IuuckSyl Villalba NP 03/31/2024 9:06 AM L Inj/Asp: L knee on 03/31/2024 9:05 AM Indications: pain Details: 20 G needle, anterolateral approach Medications: 40 mg methylPREDNISolone acetate 40 MG/ML UTILIZING ASEPTIC TECHNIQUE PT GIVEN INJECTION IN LEFT KNEE, NEUROVASC INTACT S/P INJ, TOLERATED WELL Procedure, treatment alternatives, risks and benefits explained, specific risks discussed. Consent was given by the patient. [facility] TOMOSYNTHESIS SCREENING BIon 10-47[place] [address] Mammography Report Signed Patient: DONNA ESTRELLA MR#: [id number] : 1950 Acct:[id number] Age/Sex: 73 / F ADM Date: 02/02/24 Loc: MAMMO Attending Dr: Jb Okeefe D.O. Ordering Physician: Jb Okeefe D.O. Results: Date of Service: 02/02/24 Follow Up: Procedure(s): MM tomosynthesis screening BI Accession Number(s): [id number] cc: Alden Wheeler D.O.; Jb Okeefe D.O. Patient Name: DONNA ESTRELLA MR#: [id number] : 1950 Exam Date: 02/02/2024 Ordering Doctor: DR Jb Okeefe . RADIOLOGY REPORT PROCEDURE: MM TOMOSYNTHESIS SCREENING BI COMPARISON: MM TOMOSYNTHESIS SCREENING BI, 01/24/2023. INDICATIONS: Screening Calculator Name NCI Breast Cancer Risk Assessment Tool 5 Year Breast Cancer Risk 3.70% Lifetime Breast Cancer Risk 8.40% Personal Breast Cancer No Personal Ovarian Cancer No Treatments None Family Cancers Sister with breast cancer at age 51; Mother with lung cancer at age 62. LOCATION: [facility] BREAST COMPOSITION: There are scattered areas of fibroglandular density. FINDINGS: DIAGNOSTIC CATEGORY 2--BENIGN FINDING. NO CHANGE FROM COMPARISON. Scattered benign-appearing nodules are present. Scattered benign-appearing [...] BIOPSIED. Dictated by: Reina Joseph MD on 02/02/2024 at 09:07 Approved by: Reina Joseph MD on 02/02/2024 at 09:08 Dictated By: Reina Joseph M.D. Signed By: 02/02/24908 DD/ 8 TD/TT: Music Engraver:TBHRadiology, Radiologist, - 02/02/2024 [place] [address] Mammography Report Signed Patient: DONNA ESTRELLA MR#: [id number] : 1950 Acct:[id number] Age/Sex: 73 / F ADM Date: 02/02/24 Loc: MAMMO Attending Dr: Jb Okeefe D.O. Ordering Physician: Jb Okeefe D.O. Results: Date of Service: 02/02/24 Follow Up: Procedure(s): MM tomosynthesis screening BI Accession Number(s): [id number] cc: Alden Wheeler D.O.; Jb Okeefe D.O. Patient Name: DONNA ESTRELLA MR#: [id number] : 1950 Exam Date: 02/02/2024 Ordering Doctor: DR Jb Okeefe . RADIOLOGY REPORT PROCEDURE: MM TOMOSYNTHESIS SCREENING BI COMPARISON: MM TOMOSYNTHESIS SCREENING BI, 01/24/2023. INDICATIONS: Screening Calculator Name NCI Breast Cancer Risk Assessment Tool 5 Year Breast Cancer Risk 3.70% Lifetime Breast Cancer Risk 8.40% Personal Breast Cancer No Personal Ovarian Cancer No Treatments None Family Cancers Sister with breast cancer at age 51; Mother with lung cancer at age 62. LOCATION: [facility] BREAST COMPOSITION: There are scattered areas of fibroglandular density. FINDINGS: DIAGNOSTIC CATEGORY 2--BENIGN FINDING. NO CHANGE FROM COMPARISON. Scattered benign-appearing nodules are present. Scattered benign-appearing [...] BIOPSIED. Dictated by: Reina Joseph MD on 02/02/2024 at 09:07 Approved by: Reina Joseph MD on 02/02/2024 at 09:08 Dictated By: Reina Joseph M.D. Signed By: 02/02/24908 DD/ 8 TD/TT: Music Engraver: [facility] HospitalRadiology Study observation (narrative)[facility] TOMOSYNTHESIS SCREENING BIOrdered By: Radiologist Radiology on 76-14-0178NNNV [employer] Work Phone: colonoscopyon 43-47-8250LeoZyinhyJ.W. Ruby [facility] Hospital Basophils Auto (Bld) [#/Vol]on 50-09-3869Nwphisqmo (Bld) [#/Vol]0.0 10 3/uL 0.0-0.1FAdena Regional Medical CenterBasophils/100 WBC Auto (Bld)on 61-04-9422Dgrqvwmrs/100 WBC (Bld)0.5 %0.2-2.0[facility] Eosinophils/100 WBC Auto (Bld)on 93-07-4679Dmdfbdwupki/100 WBC (Bld)4.6 %0.9-7.0 [facility] HospitalErythrocyte distribution width Auto (RBC) [Ratio]on 89-10-3582Zjsvpxbppla distribution width (RBC) [Ratio]16.2 %11.0-15.0 [facility] HospitalHematocrit Auto (Bld) [Volume fraction]on 26-80-3102Dsgcfkmren (Bld) [Volume fraction]38.0 %36.0-48.0[facility] HospitalHemoglobin [Mass/volume] in Bloodon 18-62-9680Ffziehzsyq (Bld) [Mass/Vol]11.3 g/dL12.0-16.0[facility] HospitalIron binding capacity [Mass/volume] in Serum or Plasmaon 29-90-5066Gfpc binding capacity [Mass/Vol]257.0 ug/dL250.0-450.0[facility] HospitalIron saturation [Mass Fraction] in Serum or Plasmaon 80-86-3653Ntqc saturation [Mass fraction] 39.7 %[facility] HospitalLaboratory - Chemistry and Chemistry - challengeon 98-24-7944Pkprybhgo (Vitamin B12) [Mass/Vol]405.0 pg/mL193.0-986.0 [facility] HospitalFerritin [Mass/Vol]345.0 ng/mL8.0-252.0 [facility] HospitalIron [Mass/Vol]102.0 ug/dL50.0-170.0[facility] HospitalLaboratory - Hematology and Cell countson 10-01-2023 Immature granulocytes/100 WBC (Bld)0.2 %0.0-0.5FAdena Regional Medical Center Leukocytes [#/volume] corrected for nucleated erythrocytes in Blood by Automated counon 32-77-4957GKO corrected for nucl RBC Auto (Bld) [#/Vol]6.1 10 3/uL 4.0-11.0[facility] HospitalLymphocytes Auto (Bld) [#/Vol]on 18-18-7229Cvjimxbtitp (Bld) [#/Vol]1.7 10 3/uL1.2-3.8[facility] HospitalLymphocytes/100 WBC Auto (Bld)on 33-02-6347Paauylwlazs/100 WBC (Bld)27.9 % 20.5-60.0[facility] HospitalMCH Auto (RBC) [Entitic mass]on 30-21-2188AXP (RBC) [Entitic mass]19.9 pg26.7-34.0[facility] HospitalMCHC Auto (RBC) [Mass/Vol]on 40-40-6481SOTK (RBC) [Mass/Vol]29.7 g/dL 29.9-35.2FAdena Regional Medical CenterMCV Auto (RBC) [Entitic vol]on 40-96-1951LCC (RBC) [Entitic vol]66.9 fL81.0-99.0[facility] HospitalMonocytes Auto (Bld) [#/Vol]on 69-39-0876Agmgapobz (Bld) [#/Vol]0.5 10 3/uL0.3-0.8[facility] HospitalMonocytes/100 WBC Auto (Bld)on 09-04-2001Iwoimkiil/100 WBC (Bld)7.9 %1.7-12.0[facility] Neutrophils Auto (Bld) [#/Vol]on 50-41-3527Nrxnqyfxttr (Bld) [#/Vol]3.6 10 3/uL 1.4-6.5FAdena Regional Medical CenterNeutrophils/100 WBC Auto (Bld)on 36-84-2247Kmssawagvaf/100 WBC (Bld)58.9 %43.0-75.0[facility] HospitalNo Panel Informationon 89-82-8954Jnsjvoscsgm # (Auto)0.3 10 3/uL0.0-0.7 [facility] HospitalFolate28.20 ng/mL8.60-58.90[facility] HospitalImmature Granulocyte # (Auto)0.01 10 3/uL0.00-0.03[facility] HospitalPlatelets Auto (Bld) [#/Vol]on 04-25-9139Oojwcaqoh (Bld) [#/Vol]232 10 3/aX419-968ZuzmybyipMercy Health Anderson HospitalRBC Auto (Bld) [#/Vol] on 71-64-1681XPE (Bld) [#/Vol]5.68 10 6/uL4.20-5.40[facility] HospitalVC INJ FOAM SCLERO W US MLTIon 21-01-2544UW INJ FOAM SCLERO W US MLTI Patient: DONNA ESTRELLA Exam Date: 12/05/2022 : 1950 Gender:F Ordering : DR REINA JOSEPH M.D. Admission #: [id number] Family : Order #: [id number] CLICK HERE TO VIEW EXAM RADIOLOGY REPORT [...] by: Harrison Gil M.D. on 12/05/2022 at 09:41[facility]VC CONSULT FOLLOWUPon 07-54-7347YZ CONSULT FOLLOWUPPatient: DONNA ESTRELLA Exam Date: 11/28/2022 : 1950 Gender:F Ordering : DR REINA JOSEPH M.D. Admission #: [id number] Family : Order #: [id number] CLICK HERE TO VIEW EXAM RADIOLOGY REPORT [...] by: Reina Joseph MD on 11/28/2022 at 08:38[facility] HospitalVC EXT VENOUS RT LIMITEDon 91-90-2158XS EXT VENOUS RT LIMITEDPatient: DELORESDONNA Exam Date: 11/28/2022 : 1950 Gender:F Ordering : DR REINA JOSEPH M.D. Admission #: [id number] Family : Order #: [id number] CLICK HERE TO VIEW EXAM RADIOLOGY REPORT [...] by: Reina Joseph MD on 11/28/2022 at 08:17[facility] HospitalVC INJ FOAM SCLERO W US MLTIon 34-35-8618VH INJ FOAM SCLERO W US MLTIPatient: DONNA ESTRELLA Exam Date: 11/25/2022 : 1950 Gender:F Ordering : DR REINA JOSEPH M.D. Admission #: [id number] Family : Order #: [id number] CLICK HERE TO VIEW EXAM RADIOLOGY REPORT [...] by: Harrison Gil M.D. on 11/25/2022 at 12:03[facility] HospitalVC CONSULT FOLLOWUPon 31-15-6327TE CONSULT FOLLOWUPPatient: DONNA ESTERLLA Exam Date: 11/13/2022 : 1950 Gender:F Ordering : DR REINA JOSEPH M.D. Admission #: [id number] Family : Order #: [id number] CLICK HERE TO VIEW EXAM RADIOLOGY REPORT [...] by: Harrison Gil M.D. on 11/13/2022 at 09:54[facility] HospitalVC EXT VENOUS LT LIMITEDon 92-35-2593NQ EXT VENOUS LT LIMITEDPatient: DONNA ESTRELLA Exam Date: 11/13/2022 : 1950 Gender:F Ordering : DR REINA JOSEPH M.D. Admission #: [id number] Family : Order #: [id number] CLICK HERE TO VIEW EXAM RADIOLOGY REPORT [...] vein. Dictated by: Harrison Gil M.D. on 11/13/2022 at 09:49 Approved by: Harrison Gil M.D. on 11/13/2022 at 09:52[facility] HospitalVC ENDOVENOUS ABL 1ST V LTon 36-03-2921LP ENDOVENOUS ABL 1ST V LT Patient: DELORES DONNA ReyesRafia Exam Date: 11/06/2022 : 1950 Gender:F Ordering : DR REINA JOSEPH M.D. Admission #: [id number] Family : Order #: [id number] CLICK HERE TO VIEW EXAM RADIOLOGY REPORT PROCEDURE: VEIN CENTER ENDOVENOUS ABLATION FIRST VEIN LEFT COMPARISON: VC VENOUS REFLUX TITA LMT, 02/28/2022. INDICATIONS: Pain co-occurrent and due to varicose veins of bilateral legs I83.813 OPERATIVE REPORT: The risks and benefits of the procedure had been previously discussed, and were rediscussed at length. Informed written consent was obtained by ms and Efe Hoskins assisted. Time out procedure [...] by: Harrison Gil M.D. on 11/06/2022 at 14:02[facility] HospitalVC CONSULT FOLLOWUPon 31-87-6869DP CONSULT FOLLOWUPPatient: DONNA ESTRELLA. Exam Date: 10/23/2022 : 1950 Gender:F Ordering : DR REINA JOSEPH M.D. Admission #: [id number] Family : Order #: [id number] CLICK HERE TO VIEW EXAM RADIOLOGY REPORT [...] by: Reina Joseph MD on 10/23/2022 at 13:32[facility] HospitalVC EXT VENOUS RT LIMITEDon 31-30-2417NA EXT VENOUS RT LIMITEDPatient: DELORESQIANADONNA ARafia Exam Date: 10/23/2022 : 1950 Gender:F Ordering : DR REINA JOSEPH M.D. Admission #: [id number] Family : Order #: [id number] CLICK HERE TO VIEW EXAM RADIOLOGY REPORT [...] to thrombus *Exam performed in accordance with [facility] practice guidelines- Peripheral venous ultrasound, October 21, 2009. 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 Admission #: [id number] Family : Order #: [id number] CLICK HERE TO VIEW EXAM RADIOLOGY REPORT [...] by: Reina Joseph MD on 10/18/2022 at 10:20NormTriHealth [facility] AUTO DIFFon 40-55-5594JKSO #0.0 103/ulNormal0.0-0.1[facility] on above:Performed By: #### DATCBC ####[facility] [address] [place], [place] [address]Cc. Yilan ChangBasophils/100 WBC (Bld)0.7 %Normal 0.2-2.0The Minal HospitalComment on above:Performed By: #### DATCBC ####[facility] [address] [place], [place] [address]Dr. Yilan ChangEO #0.3 103/ulNormal0.0-0.7The [facility] Medical CenterComment on above: Performed By: #### DATCBC ####[facility] [address] [place], [place] [address]Dr. Yilan ChangEosinophils/100 WBC (Bld)6.1 %Normal 0.9-7.0The [facility] Medical CenterComment on above:Performed By: #### DATCBC ####[facility] [address] [place], [place] [address]Dr. Yilan ChangErythrocyte distribution width (RBC) [Ratio]16.3 %Critically high 11.0-15.0The [facility] Medical CenterComment on above:Performed By: #### DATCBC ####[facility] [address] [place], [place] [address]Dr. Yilan ChangHematocrit (Bld) [Volume fraction]39.5 %Sdtvrm21.0-48.0The [facility] Medical CenterComment on above:Performed By: #### DATCBC ####[facility] [address] [place], [place] [address]Dr. Yilan ChangHemoglobin (Bld) [Mass/Vol]12.2 g/oAWsuhjv20.0-16.0The [facility] Medical CenterComment on above: Performed By: #### DATCBC ####[facility] [address] [place], [place] [address]Dr. Yilan ChangIG #0.01 10e3/ulNormal0.00-0.03The [facility] Medical CenterComment on above:Performed By: #### DATCBC ####[facility] [address] [place], [place] [address]Dr. Yilan ChangIG % 0.2 %Normal0.0-0.5The [facility] Medical CenterComment on above:Performed By: #### DATCBC ####[facility] [address] [place] [address]Dr. Ольга DacostaLYMPH #1.9 103/ulNormal1.2-3.8The [facility] Medical CenterComment on above:Performed By: #### DATCBC ####[facility] [address] [place], [place] [address]Dr. Ольга DacostaLymphocytes/100 WBC (Bld)34.8 % Sfbbtx59.5-60.0The [facility] HospitalComment on above:Performed By: #### DATCBC ####[facility] [address] [place], [place] [address]Dr. Ольга DacostaH (RBC) [Entitic mass]20.4 pgCritically low26.7-34.0The [facility] Medical CenterComment on above:Performed By: #### DATCBC ####[facility] [address] [place], [place] [address]Dr. Ольга DacostaHC (RBC) [Mass/Vol]30.9 g/mDKbhccy37.9-35.2The [facility] Medical CenterComment on above: Performed By: #### DATCBC ####[facility] [address] [place], [place] [address]Dr. Ольга DacostaV (RBC) [Entitic vol]66.2 fL Critically low81.0-99.0The [facility] Medical CenterComment on above:Performed By: #### DATCBC ####[facility] [address] [place], [place] [address]Dr. Ольга DacostaMONO #0.5 103/ulNormal0.3-0.8The [facility] HospitalComment on above:Performed By: #### DATCBC ####[facility] [address] [place], [place] [address]Dr. Ольга ChangMonocytes/100 WBC (Bld)9.2 %Normal 1.7-12.0The [facility] Medical CenterComment on above:Performed By: #### DATCBC ####[facility] [address] [place], [place] [address]Dr. Ольга PraneethNEUT #2.7 103/ulNormal1.4-6.5The [facility] CenterComment on above: Performed By: #### DATCBC ####[facility] H[address]fq[address] [place], [place] [address]Dr. Ольга DacostaNeutrophils/100 WBC (Bld)49.0 %Normal 43.0-75.0The [facility] CenterComment on above:Performed By: #### DATCBC ####[facility] Ufmhpacwng[address] [place], [place] [address]Dr. Ольга DacostaPlatelet mean volume (Bld) [Entitic vol]11.4 fLNormal9.5-13.5The [facility] CenterComment on above:Performed By: #### DATCBC ####[facility] Qqlfdytvgf[address] [place], [place] [address]Dr. Ольга ChangPLT 243 103/zqAmviei635-438Utx [facility] CenterComment on above:Performed By: #### DATCBC ####[facility] Oxjoupeqps[address] [place], [place] [address]Dr. Ольга ChangRBC5.97 106/ulCritically high4.20-5.40The [facility] Comment on above:Performed By: #### DATCBC ####[facility] Undqrcpanz[address] [place], [place] [address]Dr. Ольга DacostaWBC5.5 103/ulNormal4.0-11.0 The [facility] Medical CenterComment on above:Performed By: #### DATCBC ####[facility] Ekmjqcozuy[address] [place], [place] [address]Dr. Ольга DacostaDAT - TSHon 15-64-8117IOH0.495 uIU/mLNormal0.358-3.740The [facility] CenterComment on above:Performed By: #### DONOVAN GENAO ####[facility] Sfvjugwacf[address] [place], [place] [address]Dr. Nerissakathy DacostaTSH RANGESEE BELOWNoalThWadsworth-Rittman HospitalComment on above:Result Comment: <0.34 UIU/ml HYPERTHYROID 0.34-5.60 UIU/ml EUTHYROID >5.60 UIU/ml HYPOTHYROIDPerformed By: #### BIRGIT DATBMP ####[facility] Hzgpldolwz[address] [place], [place] [address]Dr. Yilan ChangDAT- BMP WITH LIPIDon 80-58-9345Vknln gap [Moles/Vol]10.3 mmol/LNormalThe [facility] CenterComment on above:Performed By: #### BIRGIT DATBMP ####[facility] Vldbxghney[address] [place], [place] [address]Dr. Yilan ChangCalcium [Mass/Vol]9.1 mg/dLNormal8.5-10.1The [facility] CenterComment on above:Performed By: #### BIRGIT DATBMP ####[facility] Xaxwcnnquj7[address] [place], [place] [address]Dr. Yilan ChangChloride [Moles/Vol]104 mmol/YDwmeuq54-113Zkd [facility] CenterComment on above:Performed By: #### BIRGIT DATBMP ####[facility] Hxnlzijzfk[address] [place], [place] [address]Dr. Yilan ChangCholesterol [Mass/Vol]162 mg/dLNormal <=200The [facility] CenterComment on above:Performed By: #### BIRGIT DATBMP ####[facility] Khqomtbrtf[address] [place], [place] [address]Dr. Yilan ChangCholesterol in HDL [Mass/Vol]59 mg/rEVvsphn53-22Jzx [facility] Comment on above:Performed By: #### BIRGIT DATBMP ####[facility] Uxconbzskm[address] [place], [place] [address]Dr. Yilan ChangCholesterol in LDL [Mass/Vol]88.0 mg/dLNormalThe [facility] CenterComment on above:Performed By: #### DATTSFreda, DATBMP ####[facility] Sohyglfxzq[address] [place], [place] [address]Dr. Yilan ChangCO2 [Moles/Vol]29.1 mmol/LNormal 21.0-32.0The [facility] Medical CenterComment on above:Performed By: #### DATKAUSHIK DATBMP ####[facility] [address] [place] [address]Dr. Yilan ChangCreatinine [Mass/Vol]0.59 mg/dLNormal0.55-1.02[facility] Comment on above:Performed By: #### BIRGIT DATBMP ####[facility] Puimzsqify[address] [place], [place] [address]Dr. Yilan ChangEGFR-AF [place] CITIZEN>60Normal>=60The [facility] Medical CenterComment on above:Performed By: #### BIRGIT DATBMP ####[facility] Mzfmxufarr[address] [place], [place] [address]Dr. Yilan ChangEGFR-NON AF [place] CITIZEN>60Normal>=60[facility] Comment on above:Performed By: #### BIRGIT DATBMP ####[facility] Ouyvxfbdpj[address] [place], [place] [address]Dr. Yilan ChangGlucose [Mass/Vol]100 mg/kVCvbrmw23-384AfmTrihealth Good Samaritan HospitalComment on above:Performed By: #### BIRGIT DATBMP ####[facility] Knfqjpkiyf[address] [place], [place] [address]Dr. Yilan ChangHDL NORMAL> or = 60 mg/dl - LOW CARDIOVASCULAR RISK <40 mg/dl - HIGH CARDIOVASCULAR RISKLancaster Municipal HospitalComment on above:Performed By: #### BIRGIT DATBMP ####[facility] Tzsqzfadce[address] [place], [place] [address]Dr. Yilan ChangLDL CALC NORMALSEE BELOWLancaster Municipal HospitalComment on above:Result Comment: <100 mg/dl OPTIMAL 100 - 129 mg/dl NEAR OR ABOVE OPTIMAL 130 - 159 mg/dl BORDERLINE HIGH 160 - 189 mg/dl HIGH >190 mg/dl VERY HIGHPerformed By: #### DATTSFreda DATBMP ####[facility] Pmzmwthszl[address] [place], [place] [address]Dr. Yilan ChangPotassium [Moles/Vol]4.4 mmol/LNormal3.5-5.1The [facility] Comment on above:Performed By: #### BIRGIT DATBMP ####[facility] [address] [place] [address]Dr. Yilan ChangSodium [Moles/Vol]139 mmol/QZdelvv970-084Fne [facility] CenterComment on above: Performed By: #### DATKAUSHIK DATBMP ####[facility] [address] [place] [address]Dr. Yilan ChangTriglyceride [Mass/Vol]75 mg/dLNormal <=150The [facility] CenterComment on above:Performed By: #### BIRGIT DATBMP ####[facility] [address]lf[address]ain[address] [place] [address]Dr. Yilan ChangUrea nitrogen [Mass/Vol]25.0 mg/dLCritically high7.0-18.0The [facility] CenterComment on above:Performed By: #### BIRGIT DATBMP ####[facility] [address] [place] [address]Dr. Yilan ChangUrea nitrogen/Creatinine [Mass ratio]42.4 mg/mgNoNewark HospitalComment on above:Performed By: #### BIRGIT DATBMP ####[facility] [address] [place] [address]Dr. Yilan ChangVLDL CALC15.0 mg/dLNoNewark HospitalComment on above:Performed By: #### BIRGIT DATBMP ####[facility] Aixxpgwbgm[address] [place], [place] [address]Dr. Yilan ChangVC COMP CONSULTATIONon [id number] COMP CONSULTATIONPatient: DONNA ESTRELLA Exam Date: 02/28/2022 : 1950 Gender:F Ordering : DR REINA JOSEPH M.D. Admission #: [id number] Family : Order #: [id number] CLICK HERE TO VIEW EXAM RADIOLOGY REPORT [...] arterial disease 5. CEAP: C3, EC, AP, ID PLAN: 1. Continued use of compression stockings [...] by: Harrison Gil M.D. on 02/28/2022 at 13:38[facility] HospitalVC VENOUS REFLUX TITA LMTon [id number] VENOUS REFLUX TITA LMTPatient: DONNA ESTRELLA Exam Date: 02/28/2022 : 1950 Gender:F Ordering : DR REINA JOSEPH M.D. Admission #: [id number] Family : Order #: [id number] CLICK HERE TO VIEW EXAM RADIOLOGY REPORT [...] chronic thrombus visualized Compressibility: Normal Flow: Normal Research Microbiologist: Dist/med calf 3.2mm with 0s reflux. Mid/med [...] by: Harrison Gil M.D. on 02/28/2022 at 09:48[facility] HospitalMG MAMM SCREEN 3D TITA CADon [id number] MAMM SCREEN 3D TITA CADPatient: DONNA ESTRELLA Exam Date: 01/21/2022 : 1950 Gender:F Ordering : DR ALDEN WHEELER D.O. Admission #: [id number] Family : Order #: [id number] CLICK HERE TO VIEW EXAM RADIOLOGY REPORT [...] lung cancer at age 61. LOCATION: [facility] BREAST COMPOSITION: Scattered areas fibroglandular [...] on 01/21/2022 at 14:32 Approved by: Reina Joseph MD on 01/21/2022 at 14:35[facility] URINALYSISOrdered By: Danielle Sifuentes on 03-67-6042Jpzgbsbe LM Ql (Urine sed)Trace /HPFNormalTrace/HPFH[facility] Auto SSBilirubin Ql (U)Negative (12/12/21 11:49 AM)NormalNegativeHILLCREST [facility] [place] Auto SSCalcium oxalate crystals LM Ql (Urine sed)Present (12/12/21 11:49 AM)NormalHILLCREST [facility]OS[facility]A Auto SSClarity (U)Cloudy *ABN* (12/12/21 11:49 AM)Invalid Interpretation CodeClearFDUNCAN [facility] [place] U[facility] Auto SSColor (U)Yellow (12/12/21 11:49 AM)NormalYellowHILLCREST HOSPITAL [facility] [place] [facility]A Auto SSCrystals LM Ql (Urine sed)Present (12/12/21 11:49 AM)NormalHILLCREST HOS[facility] UA Auto SSEpithelial cells.squamous LM.HPF (Urine sed) [#/Area]0-2 /HPFNormal0-2/HPFFTMC UA Auto SSGlucose Test strip (U) [Mass/Vol]Negative (12/12/21 11:49 AM)NormalNegativeHILLCREST [facility] [place] [facility]A Auto SSHemoglobin Ql (U)3+ *ABN* (12/12/21 11:49 AM)Invalid Interpretation CodeNegativeHILLCREST [facility] [place]A Auto SSKetones (U) [Mass/Vol]Trace *ABN* (12/12/21 11:49 AM)Invalid Interpretation CodeNegativeHILLCREST [facility] [place] [facility] Auto SS [place].plasma/[place].RBC (Bld) [Mass ratio]4-20 /HPFNormal0-3/HPFHILLCREST [facility] [place] [facility] Auto SSNitrite Ql (U)Negative (12/12/21 11:49 AM)NormalNegativeHILLCREST [facility] [place] [facility]A Auto SSpH (U)5.5 *NA* (12/12/21 11:49 AM)Invalid Interpretation Code5.0 - 9.0[facility] Auto SSProtein (U) [Mass/Vol]Negative (12/12/21 11:49 AM)NormalNegativeHILLCREST [facility] [place]A Auto SSSpecific gravity (U) [Rel density]>=1.030 *NA* (12/12/21 11:49 AM)Invalid Interpretation Code1.005 - 1.030[facility] Auto SSUA Spec DescClean Catch (12/12/21 11:49 AM)NormalHILLCREST HOSPITAL [facility]A Auto SSUrobilinogen Qn (U)0.4299916 {Cortez'U}/dLNormal0.0 - 1.0 EU/dLHILLCREST HOS[facility] UA Auto SSWBC Auto Ql (U)Negative (12/12/21 11:49 AM)NormalNegativeHILLCREST [facility] UA Auto SSWBC LM.HPF (Urine sed) [#/Area]0- 5 /HPFNormal0-5/HPFMC UA Auto SS Vital Signs Date TimeVital SignValuePerforming AzousbnghZdiuxxvd73-92-0129 08:22-0400Body bkunvs990.6 cmHarley No Chains Phone: Angry [id number] 08:22-0400Body mass index (BMI) [Ratio]34.6 kg/e1Ehodt No Chains Phone: Angry [id number] 08:22-0400Body chqema92.44 kgHarley No Chains Phone: noSeplat Petroleum Development CompanyNoxsxhzxzh21-55-7744 11:19-0400Body .6 cmHarley No Chains Phone: noSeplat Petroleum Development [id number] 11:19-0400Body mass index (BMI) [Ratio]35.7 kg/o7Lcbse Brown DO Work Phone: [phone] [place], [place] 7748606-19-2025 11:19-0400Body fihaol55.35 kgHarley Arciniega DO Work Phone: [phone] [place], [place] 7748605-22-2025 09:50-0400Body .6 cmHarley Brown DO Work Phone: [phone] [place], [place] 7748605-22-2025 09:50-0400Body mass index (BMI) [Ratio]35.7 kg/x4Fuozs Brown DO Work Phone: [phone] [place], [place] 7748605-22-2025 09:50-0400Body eliwtu91.35 kgHarley Arciniega DO Work Phone: [phone] [place], [place] 7748605-08-2025 11:38-0400Hourly Rounding Harley Arciniega [address] [place], [place] 9977705-08-2025 11:38-0400 Promise to ReturnHarley Arciniega [address]05-08-2025 10:00-0400 Hourly RoundingHarley Arciniega [address] [place], [place] 9977705-08-2025 10:00-0400 Promise to ReturnHarley Arciniega [address]05-08-2025 09:22-0400 Hourly RoundingHarley Arciniega [address] [place], [place] 6754805-08-2025 09:22-0400 Promise to ReturnHarley Arciniega [address] [place], [place] 9977705-08-2025 07:54-0400Heart rate56 /minHarley Arciniega [address] [place], [place] 6754805-08-2025 07:54-9741DaC5% (BldA) [Mass fraction]96 %Harley Arciniega [address] [place], [place] 6754805-08-2025 07:54-0400 Respiratory rate18 /minHarley Arciniega [address] [place], [place] 9977705-08-2025 07:53-0400Body yssgctyjydl51.7 [degF]Harley Arciniega [address] [place], [place] 9977705-08-2025 07:53-0400 Diastolic blood mm[Hg]Harley Arciniega [address] [place], [place] 9977705-08-2025 07:53-0400Mean blood mplrdyjg27 mm[Hg]Harley Arciniega [address] [place], [place] 9977705-08-2025 07:53-0400 Systolic blood cdhxxwsu112 mm[Hg]Harley Arciniega [address] [place], [place] 9977705-08-2025 03:35-0400Blood Pressure LocationHarley Arciniega [address] [place], [place] 9977705-08-2025 03:35-0400Body skwfpadawkr54.7 [degF]Harley Arciniega [address] [place], [place] 9977705-08-2025 03:35-0400 Diastolic blood smhhncir67 mm[Hg]Harley Arciniega [address] [place], [place] 9977705-08-2025 03:35-0400Heart rate56 /Anthony Arciniega [address] [place], [place] 9977705-08-2025 03:35-0400Mean blood lgfibdpj876 mm[Hg]Harley Arciniega [address] [place], [place] 9977705-08-2025 03:35-0400 Respiratory rate16 /Anthony Arciniega [address] [place], [place] 9977705-08-2025 03:35-4587ImZ9% (BldA) [Mass fraction]95 %Harley Arciniega [address] [place], [place] 9977705-08-2025 03:35-0400 Systolic blood wltknoji856 mm[Hg]Harley Arciniega [address] [place], [place] 9977705-07-2025 23:54-0400Blood Pressure LocationHarley Arciniega [address] [place], [place] 6754805-07-2025 23:54-0400Body pyovartrinh23.52 [degF]Harley Arciniega [address] [place], [place] 6754805-07-2025 23:54-0400 Diastolic blood sarundib08 mm[Hg]Harley Arciniega [address] [place], [place] 6754805-07-2025 23:54-0400Heart rate56 /Anthony Arciniega [address] [place], [place] 6754805-07-2025 23:54-0400Mean blood kbunbext73 mm[Hg]Harley Arciniega [address] [place], [place] 9977705-07-2025 23:54-0400 Respiratory rate16 /Anthony Arciniega [address] [place], [place] 9977705-07-2025 23:54-2382AuY9% (BldA) [Mass fraction]95 %Harley Arciniega [address] [place], [place] 6754805-07-2025 23:54-0400 Systolic blood ldawwlcf103 mm[Hg]Harley Arciniega [address]05-07-2025 16:49-0400Body brpfhkwvpuu46.7 [degF]Harley Arciniega [address] [place], [place] 6754805-07-2025 16:48-0400Mean blood jpghazhp71 mm[Hg]Harley Arciniega [address] [place], [place] 6754805-07-2025 10:41-0400Body vajyhsnaxxj25.26 [degF]Harley Arciniega [address] [place], [place] 6754805-07-2025 10:39-0400Mean blood biddoroa92 mm[Hg]Harley Arciniega [address] [place], [place] 9977705-07-2025 10:21-0400 Respiratory rate14 /Anthony Arciniega [address] [place], [place] 6754805-07-2025 10:21-0400Body kaawqaamwrv93.34 [degF]Harley Arciniega [address] [place], [place] 6754805-07-2025 10:21-0400Mean blood gtlqqifu80 mm[Hg]Harley Arciniega [address] [place], [place] 6754805-07-2025 10:10-0400 Respiratory rate17 /Anthony Arciniega [address] [place], [place] 6754805-07-2025 10:05-0400 Respiratory rate13 /Anthony Arciniega [address]05-07-2025 09:37-0400Body cbiggbwbifm15.98 [degF]Harley Arciniega [address] [place], [place] 6754805-07-2025 06:15-0400Heart rate66 /Anthony Arciniega [address] [place], [place] 6754805-07-2025 06:02-0400Blood Pressure LocationHarley Acriniega [address] [place], [place] 6754804-29-2025 11:40-0400Body kpruwo557.56 cmMer[facility]04-29-2025 11:40-0400Body mass index (BMI) [Ratio]35.9 kg/i9EokwmflipMercy Health Anderson Hospital04-29-2025 11:40-0400Body .97 kgMercy Health [facility] Hospital04-29-2025 11:40-0400Diastolic blood gjiwkbqv27 mm[Hg][facility] 11-23-2024 11:40-0400Heart rate64 /[facility] 11-23-2024 11:40-0400Respiratory rate12 /[facility] 11-23-2024 11:40-0400Systolic blood houfhife039 mm[Hg][facility]04-24-2025 10:33-0400Diastolic blood fytpvcim51 mm[Hg]Harley Arciniega [address]04-24-2025 10:33-0400Heart rate72 /Anthony Arciniega [address] [place], [place] 6754804-24-2025 10:33-0400Mean blood lwculxti66 mm[Hg]Harley Arciniega [address] [place], [place] 6754804-24-2025 10:33-0400 Systolic blood uixlxchb595 mm[Hg]Harley Arciniega [address] [place], [place] 6754804-24-2025 10:32-0400Heart rate75 /Anthony Arciniega [address] [place], [place] 9977704-24-2025 10:32-6834PdV3% (BldA) [Mass fraction]96 %Harley Arciniega [address] [place], [place] 6754804-24-2025 10:32-0400 Respiratory rate18 /Anthony Arciniega [address] [place], [place] 6754804-24-2025 10:32-0400 Diastolic blood ghzuqgvs64 mm[Hg]Harley Arciniega [address] [place], [place] 6754804-24-2025 10:32-0400Mean blood quoxnlwj446 mm[Hg]Harley Arciniega [address] [place], [place] 6754804-24-2025 10:32-0400 Systolic blood jcahblpw263 mm[Hg]Harley Arciniega [address] [place], [place] 6754804-24-2025 09:21-0400Body mogqtr119.6 cmAmauryalma Jung [employer] Work Phone: 1(011)[address] [place], [place] 7748604-24-2025 09:21-0400Body mass index (BMI) [Ratio]35.7 kg/z4Lkwtd Jung [employer] Work Phone: 1(497)[address] [place], [place] 7748604-24-2025 09:21-0400Body .35 kgHarley Jung [employer] Work Phone: 1(456)[address] [place], [place] 7748611-21-2024 09:52-0500Body mass index (BMI) [Ratio]36.6 kg/e3ZzrmjjyppMercy Health Anderson Hospital11-21-2024 09:36-0500 Body .56 cmMercy Health [facility] Hospital11-21-2024 09:36-0500Body zojiiv84.67 kgMercy Health Anderson Hospital11-21-2024 09:36-0500Diastolic blood bwqgmuut34 mm[Hg][facility]11-21-2024 09:36-0500 Heart rate74 /[facility]11-21-2024 09:36-0500 Respiratory rate12 /[facility]11-21-2024 09:36-0500 Systolic blood uxodiihi731 mm[Hg][facility]10-16-2024 10:21-0400Blood Pressure LocationKathy Lue [facility]10-16-2024 10:0400Diastolic blood thfuadij15 mm[Hg]Ramila Lue [facility]10-16-2024 10:21-0400Heart rate66 /minKathy Lue [facility]10-16-2024 10:21-0400Systolic blood dabayxib082 mm[Hg]Ramila Lue [facility]08-28-2024 10:06-0400Body .56 cmMercy Health [facility] Hospital08-28-2024 10:06-0400Body mass index (BMI) [Ratio]36.4 kg/p1YptrgrnzcMercy Health Anderson Hospital08-28-2024 10:06-0400Body jkadcn68.27 kgMercy Health Anderson Hospital08-28-2024 10:06-0400Diastolic blood bwoklmdp45 mm[Hg] [facility]08-28-2024 10:06-0400Heart rate77 /[facility]08-28-2024 10:06-0400Respiratory rate12 /[facility]08-28-2024 10:06-0400Systolic blood lulihbzc638 mm[Hg] [facility]08-14-2024 14:58-0400Body cicnrx633.56 cm [facility]08-14-2024 14:58-0400Body mass index (BMI) [Ratio]36.7 kg/z9GzuiiplbmMercy Health Anderson Hospital08-14-2024 14:58-0400Body boihzh61.06 kgMercy Health [facility] Hospital08-14-2024 14:58-0400Diastolic blood smhhmxha84 mm[Hg][facility]08-14-2024 14:58-0400 Heart rate84 /[facility]08-14-2024 14:58-0400 Respiratory rate12 /[facility]08-14-2024 14:58-0400 Systolic blood impgielx012 mm[Hg][facility]05-10-2024 12:01-0400Body sfpbio568.8 cmRosmery Guillermo SURVEY AND MAPPING TECHNICIAN-FREELANCE WRITER Work Phone: [facility]05-10-2024 12:01-0400Body mass index (BMI) [Ratio]36.4 kg/h4QuskoojRosmery Guillermo SURVEY AND MAPPING TECHNICIAN-FREELANCE WRITER Work Phone: [facility]05-10-2024 12:01-0400Body qwwaay83.7 kgRosmery Guillermo SURVEY AND MAPPING TECHNICIAN-FREELANCE WRITER Work Phone: [facility]05-10-2024 12:01-0400Diastolic blood mm[Hg]Rosmery Guillermo SURVEY AND MAPPING TECHNICIAN-FREELANCE WRITER Work Phone: [facility]05-10-2024 12:01-0400Heart rate 81 /Ricky Guillermo SURVEY AND MAPPING TECHNICIAN-FREELANCE WRITER Work Phone: [facility]05-10-2024 12:01-0400Systolic blood xvtnkqit666 mm[Hg]Rosmery Guillermo SURVEY AND MAPPING TECHNICIAN-FREELANCE WRITER Work Phone: [facility]04-16-2024 15:50-0400Body qookdv693.56 cmMercy Health [facility] Hospital04-16-2024 15:50-0400Body mass index (BMI) [Ratio]36.7 kg/m6AonpdondoMercy Health Anderson Hospital04-16-2024 15:50-0400Body qvcemo86.12 kgMercy Health Anderson Hospital04-16-2024 15:50-0400Diastolic blood mxgrhyge57 mm[Hg][facility] 11-11-2023 15:50-0400Heart rate73 /[facility] 11-11-2023 15:50-0400Respiratory rate12 /[facility] 11-11-2023 15:50-0400Systolic blood rubxhwtq222 mm[Hg][facility]10-11-2023 08:03-0400Blood Pressure LocationKathy Lue [facility]10-11-2023 08:03-0400Diastolic blood pfptfrve45 mm[Hg]Ramila Lue [facility]10-11-2023 08:03-0400Heart rate70 /minKathy Lue [facility]10-11-2023 08:03-0400Respiratory rate16 /minKathy Lue [facility]10-11-2023 08:03-0400Systolic blood mm[Hg]Ramila Lue [facility]09-26-2023 08:45-0400Body ydsvvu139.56 cmBenjamin Ball Other [facility] [employer] Other 09-26-2023 08:45-0400Body mass index (BMI) [Ratio]36.8 kg/s7Nllcuyfa Ball Other [employer] Other 09-26-2023 08:45-0400Body afvhnv46.25 kgBenjamin Ball Other [employer] Other 09-26-2023 08:45-0400Diastolic blood jywuwkbz54 mm[Hg] Alden Ball Other [employer] Other 09-26-2023 08:45-0400Respiratory rate12 /minBenjamin Ball Other [employer] Other 09-26-2023 08:45-0400Systolic blood oyhuxwlh087 mm[Hg] Alden Ball Other [employer] Other 06-05-2023 08:45-0400Body hnzgup662.56 cmBenjamin Ball Other [employer] Other 06-05-2023 08:45-0400Body mass index (BMI) [Ratio] 37.35 kg/g4Gudrkarl Ball Other [employer] Other 06-05-2023 08:45-0400Body .7 kgBenjamin Ball Other [employer] Other 06-05-2023 08:45-0400Diastolic blood orupfflu70 mm[Hg] Alden Ball Other [employer] Other 06-05-2023 08:45-0400Respiratory rate12 /minBenjamin Ball Other [employer] Other 06-05-2023 08:45-0400Systolic blood ofoyocgv938 mm[Hg] Alden Ball Other [facility] [employer] Other 04-07-2023 10:30-0400Body lcabix941.56 cmBenjamin Ball Other [facility] [employer] Other 04-07-2023 10:30-0400Body mass index (BMI) [Ratio] 37.72 kg/t0Zmrdhmnn Ball Other [facility] [employer] Other 04-07-2023 10:30-0400Body xxfekp66.7 kgBenjamin Ball Other [facility] [employer] Other 04-07-2023 10:30-0400Diastolic blood byahiwtz80 mm[Hg] Alden Ball Other [facility] [employer] Other 04-07-2023 10:30-0400Respiratory rate12 /minBenjamin Ball Other [facility] [employer] Other 04-07-2023 10:30-0400Systolic blood awowyrmc437 mm[Hg] Alden Ball Other [facility] [employer] Other 10-05-2022 08:17-0400Blood Pressure LocationKathy Lue [facility]10-05-2022 08:17-0400Diastolic blood opjaedxw84 mm[Hg]Ramila Lue [facility]10-05-2022 08:17-0400Heart rate74 /minKathy Lue [facility]10-05-2022 08:17-0400Systolic blood yhrinhat317 mm[Hg]Ramila Lue [facility]05-18-2022 11:07-0400Blood Pressure LocationKathy Lue [facility] [employer] 05-18-2022 11:07-0400Diastolic blood uhcsekzx36 mm[Hg] Ramila Lue [facility] [employer] 05-18-2022 11:07-0400Heart rate69 /minKathy Lue [facility] [employer] 05-18-2022 11:07-0400Respiratory rate16 /minKathy Lue [facility] [employer] 05-18-2022 11:07-0400Systolic blood uvogurzx240 mm[Hg] Ramila Lue [facility] [employer] Encounters Encounter DateEncounter TypeCare ProviderFacilityStart: 72-95-2063yausrgjnda Ramila Pascal LueFacility:EU [place]vueStart: 06-03-2025 End: 77-59-5929PfuwtwQbxp [facility] EyeComment on above: 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 LueFacility:EU evueStart: 06-01-2025 End: 18-15-9277Bmfaosq encounter procedureRamila BaileeRafia Chaparroherlinda [facility] [employer] start: 04-14-2025 End: 71-06-8171Bizoecj encounter procedureHarley Arciniega DO Work Phone: noms [place] OrthopaedicsComment on above:Status post total left knee replacement (Primary Dx); Chronic pain of right kneeStart: 04-14-2025 End: 75-23-5317ugjwctcnklPBAZZ A BROWNNot AvailableStart: 04-13-2025 End: 99-24-0092Hwuzvn flowsheetJonathan D Zahler DO Work Phone: noms [facility] EyeStart: 04-13-2025 End: 68-89-9070Dkrvhc flowsheetJonathan D Zahler DO Work Phone: noms [facility] EyeStart: 04-13-2025 End: 54-01-4924vjtxsljzqvOFEXWQBZ D LAQUITAERNot AvailableStart: 04-06-2025 End: 47-77-2481Bkwnek flowsheetJonathan D Zahler DO Work Phone: noms [facility] EyeStart: 04-06-2025 End: 47-55-4930Mcftbd flowsheetJonathan D Zahler DO Work Phone: noms [facility] EyeStart: 04-06-2025 End: 93-42-4611lhdwipmrhyCYGGQPCG D LAQUITAERNot AvailableStart: 02-25-2025 End: 04-03-8356mlvhhfduoaEyfqld X OrzechFacility:EU [facility] Hospitaltart: 02-25-2025 End: 45-54-7481Skkcryb encounter procedureAurora X Orzech [facility] Start: 01-13-2025 End: 03-66-2135Zrxxhas encounter procedureHarley Arciniega DO Work Phone: noms NB ORTHOComment on above:Status post total left knee replacement (Primary Dx); Chronic pain of right kneeStart: 01-13-2025 End: 47-83-8766kofdvnvxfrPSJIS A BROWNNot AvailableStart: 01-13-2025 End: 53-85-6315vpoagglqzwEEMTY A BROWNNot AvailableStart: 12-29-2024 End: 89-38-8603Gpbpva flowsheetJonathan D Zahler DO Work Phone: NOMS NB OPHTStart: 12-29-2024 End: 74-16-9732Ixfieb flowsheetJonathan D Zahler DO Work Phone: NOMS NB OPHTStart: 12-29-2024 End: 55-64-8226vsqjugoofwNKHMOOPI D ZAHLERNot AvailableStart: 12-22-2024 End: 75-93-2919Zxpvuq flowsheetJason A Brown DO Work Phone: [phone] ORTHOStart: 12-22-2024 End: 67-52-3258Cdjzqw flowsheetJason A Brown DO Work Phone: NOMS ORTHOStart: 12-22-2024 End: 83-16-9211tclrressdpRCSIP A BROWNNot AvailableStart: 12-16-2024 End: 63-36-5063Kmnuewi encounter procedureJason A Brown DO Work Phone: [phone] NB ORTHOComment on above:Status post total left knee replacement (Primary Dx)Start: 12-16-2024 End: 96-86-3847jvgmzvrqaqISKLW A BROWNNot AvailableStart: 12-02-2024 End: 87-18-6767Wmlvnfhly Result EncounterJason A Brown DO Work Phone: [phone] External Department UnsolicitedStart: 12-02-2024 End: 43-54-4581Bgvdvwcgj Result EncounterJason A Brown DO Work Phone: [phone] External Department UnsolicitedStart: 12-01-2024 End: 01-58-6248Xcadrqgrx Result EncounterJason A Brown DO Work Phone: [phone] External Department UnsolicitedStart: 12-01-2024 End: 72-74-8654Wkstcaaau Result EncounterJason A Brown DO Work Phone: NOMS External Department UnsolicitedStart: 12-01-2024 End: 73-05-5335gvphvvtldkEhobb A BrownFacility:FTMCStart: 12-01-2024 End: 59-90-7388Mgtimzo encounter procedureHarley Arciniega [facility] Start: 11-29-2024 End: 84-38-7048Ziwgts Alexis Wagoner PT Work Phone: NOMS CI PTStart: 11-29-2024 End: 79-09-6543Arankyalberto Wagoner PT Work Phone: NOMS CI PTStart: 11-29-2024 End: 43-97-0531epamexgruhKlhayt T Blackston PT Work Phone: NOMS CI PTComment on above:Primary osteoarthritis of left kneeStart: 11-23-2024 End: 65-15-9350gfmrjrklsaGersdmhnzSt. Elizabeth Hospital Work Phone: Start: 11-23-2024 End: 68-24-4102Zeuewqnrt for other preprocedural examinationOhio Valley Surgical Hospitaltart: 11-23-2024 End: 07-00-9723Wgnfnyj encounter procedureNov[facility] Work Phone: Start: 11-18-2024 End: 12-00-5740Dyptyx Sarah Arciniega DO Work Phone: NOMS ORTHOStart: 11-18-2024 End: 46-37-2268Zccpyw flowsJo Arciniega DO Work Phone: NOMS ORTHOStart: 11-18-2024 End: 27-37-4871Rdaiamzed Result EncounterHarley Arciniega DO Work Phone: NOMS External Department UnsolicitedStart: 11-18-2024 End: 38-07-2162Updsjlk encounter procedureJason A Brown DO Work Phone: NOMS NB ORTHOComment on above:Pre-op testingStart: 11-18-2024 End: 18-53-4078Ngreuzj encounter statusHarley Arciniega DO Work Phone: [facility] Work Phone: Start: 11-18-2024 End: 74-09-0825bchcktflilJfekb A BrownFacility:FTMCStart: 11-02-2024 End: 35-98-0348Bxwlsl OnlyClay Pricehler DO Work Phone: NOSM NB OPHTComment on above:Glaucoma suspect of both eyes (Primary Dx)Start: 10-26-2024 End: 48-91-0537TapzgaEootcyeu D Radhahler DO Work Phone: NOMS NB OPHTComment on above: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, mild stageStart: 10-05-2024 End: 01-44-0221bbwwkxojfmYXZAS A BROWNNot AvailableStart: 10-05-2024 End: 45-54-9906ubzjtmwaaeADYGN A BROWNNot AvailableStart: 09-29-2024 End: 97-60-3045Fpcxbf flowsheetJessicahan Elke Radhahler DO Work Phone: NOMS NB OPHTStart: 09-29-2024 End: 58-09-7099Btynic flowsheetJonathan Elke Radhahler DO Work Phone: NOMS NB OPHTStart: 09-29-2024 End: 71-33-2384wefslvmwdfLJFPSNBY D ZAHLERNot AvailableStart: 09-07-2024 End: 40-22-0474NxgdqgJcrjorj Weisenberger COT Work Phone: NOMS NB OPHTComment on above: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, mild stage (CMS/HCC)Start: 08-27-2024 End: 27-46-4388HedpkbLkkyroz Alaniz COTNOMS NB OPHTComment on above: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, mild stage (CMS/HCC)Start: 07-09-2024 End: 46-74-7703Oxqkqu flowsheetJonathan D Zahler DO Work Phone: noms NB OPHTStart: 07-09-2024 End: 92-54-2197Jnhvaq flowsheetJonathan D Zahler DO Work Phone: noms NB OPHTStart: 07-09-2024 End: 00-25-7067xdlegtqkpaGWCCZQDV D ZAHLERNot AvailableStart: 07-06-2024 End: 40-80-0824PoddyjMobozfli D Zahler DO Work Phone: noms NB OPHTComment on above: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, mild stage (CMS/HCC)Start: 07-06-2024 End: 63-22-7557eystltwpqmLIFQWFUY Elke PRICEHLERNot AvailableStart: 07-05-2024 End: 76-15-8649Vfblaw flowsheetMaria B Apling PROGRAM COORDINATOR Work Phone: noms CI ORTHOPAEDICSStart: 07-05-2024 End: 95-10-7177Ljgqxp flowsheetMaria B Apling PROGRAM COORDINATOR Work Phone: noms CI ORTHOPAEDICSStart: 07-05-2024 End: 39-55-7087Ecdbog outpatient visit 15 minutesMaria B Apling PROGRAM COORDINATOR Work Phone: noms CI ORTHOPAEDICSComment on above:Arthritis of right knee (Primary Dx); Chronic pain of right kneeStart: 07-05-2024 End: 80-21-3604zjqyuqqnzyBXUGQ B APLINGNot AvailableStart: 07-02-2024 End: 17-25-3043Ohqejibsh encounterMaria B Apling PROGRAM COORDINATOR Work Phone: noms FB ORTHOPAEDICSComment on above:injectionStart: 06-17-2024 End: 81-45-9365xrfapgyyefEicghcwvyLima City Hospital Work Phone: Start: 06-17-2024 End: 83-86-7227Chghzmz encounter procedureNovant Health [facility] Physician GroupHock[facility] Work Phone: Start: 06-15-2024 End: 24-99-5920Yreepq flowsheetJames A Sandra DO Work Phone: noms CI ORTHOPAEDICSStart: 06-15-2024 End: 05-22-2063Xmbmgu flowsheetJames A Sandra DO Work Phone: noms CI ORTHOPAEDICSStart: 06-15-2024 End: 23-85-0527Dadcyxd encounter procedureJames A Sandra DO Work Phone: noms CI ORTHOPAEDICSComment on above:Arthritis of right kneeStart: 06-15-2024 End: 80-17-5559frnrwzytzpZYTMT A HUDDLESTONNot AvailableStart: 39-61-0772Touobnb encounter procedureOhio Valley Surgical Hospitaltart: 21-06-8005Fhv- patient / Non-visitFirriverside health system Physician [facility] Work Phone: Start: 06-08-2024 End: 61-60-2005Gdoydb flowsheetJames A Sandra DO Work Phone: noms CI ORTHOPAEDICSStart: 06-08-2024 End: 34-81-6716Etshsr flowsheetJames A Sandra DO Work Phone: noms CI ORTHOPAEDICSStart: 06-08-2024 End: 49-88-5292Aduioy follow up visit related to original pxJames A Sandra DO Work Phone: noms CI ORTHOPAEDICSComment on above:Arthritis of right kneeStart: 06-08-2024 End: 32-03-4287nmalrxdxsfRLQFG A HUDDLESTONNot AvailableStart: 06-01-2024 End: 87-61-7690Fyuxrb flowsheetJames A Sandra DO Work Phone: noms CI ORTHOPAEDICSStart: 06-01-2024 End: 99-13-7351Plfqxl flowsheetJames A Sandra DO Work Phone: noms CI ORTHOPAEDICSStart: 06-01-2024 End: 43-89-4259Nnpmmz outpatient visit 25 minutesAdriana Flores DO Work Phone: noms CI ORTHOPAEDICSComment on above:Arthritis of right knee (Primary Dx); Chronic pain of right kneeStart: 06-01-2024 End: 20-74-1035ovvnwyuqksNMRTF A HUDDLESTONNot AvailableStart: 05-12-2024 End: 61-20-4911arljrkinzfYnpxo M. LueFacility:FTMCStart: 05-12-2024 End: 39-28-7802Oji Drop offRamila Pradhan [facility] Start: 05-12-2024 End: 34-63-3621Icxvfro encounter procedureRamila Pradhan [facility] start: 04-13-2024 End: 83-17-6208Iskknp juanlisaAdriana Flores DO Work Phone: noms CI ORTHOPAEDICSStart: 04-13-2024 End: 80-61-8306Soibms Una Flores DO Work Phone: noms CI ORTHOPAEDICSStart: 04-13-2024 End: 28-69-7089Hfeaqq outpatient visit 15 minutesAdriana Flores DO Work Phone: noms CI ORTHOPAEDICSComment on above:Arthritis of right knee (Primary Dx); Chronic pain of right kneeStart: 03-31-2024 End: 64-31-4476Yvebaw flowsheetMaria B Apling PROGRAM COORDINATOR Work Phone: noms CI ORTHOPAEDICSStart: 03-31-2024 End: 48-25-2264Xqqgek flowsheetMaria B Apling PROGRAM COORDINATOR Work Phone: NOMS CI ORTHOPAEDICSStart: 03-31-2024 End: 69-41-0686Puskhs outpatient visit 25 minutesSyl Villalba PROGRAM COORDINATOR Work Phone: NOPK CI ORTHOPAEDICSComment on above:Chronic pain of right knee (Primary Dx); Arthritis of right kneeStart: 03-24-2024 End: 11-24-0206zwxfnuofuyCgwzdgaucLima City Hospital Work Phone: Start: 03-24-2024 End: 01-16-8330Arqdkot encounter procedureNovant Health [facility] Physician GroupHocking [facility] Hospital Work Phone: Start: 03-10-2024 End: 50-39-1159sfowfzahejXmqnrpeqvLima City Hospital Work Phone: Start: 03-10-2024 End: 62-46-2518Oisbgpg encounter procedureNovant Health [facility] Physician GroupHocking Valley [facility] Hospital Work Phone: Start: 02-02-2024 End: 45-33-8655Aiarujvnq Result EncounterCorey Maldonado DO Work Phone: noms External Department UnsolicitedStart: 02-02-2024 End: 65-34-5223Bxhutuwkr Result EncounterCorey Maldonado DO Work Phone: noms External Department UnsolicitedStart: 01-01-2024 End: 29-46-1592Tcodpy Ana Roberto AProMedica Physicians General SurgeryComment on above:Rectal bleedingStart: 12-05-2023 End: 47-10-5023lqqkgltlpjTWXTHGY A WAINWRIGHTELAINEParkview Health [facility] Start: 12-05-2023 End: 18-26-7757Heileq outpatient new 30 minutesWinstonlizzy Guillermo SURVEY AND MAPPING TECHNICIAN-FREELANCE WRITER Work Phone: ProEn[facility] Physicians General SurgeryComment on above: Rectal bleeding (Primary Dx)Start: 11-11-2023 End: 62-70-3175vuigkhyqcfWtwxjncxuLima City Hospital Work Phone: Start: 11-11-2023 End: 23-20-3768Pncuwpg encounter procedureFirelands Physician [facility] Work Phone: Start: 79-92-3220Khv-patient / Non-visitFirriverside health system [facility] Work Phone: Start: 60-74-5121Ykm-patient / Non-visitFirwaynes Physician Group-[facility] Work Phone: Start: 82-03-4152Bmz-patient / Non-visitFirelands Physician Group-[facility] Work Phone: Start: 06-10-2023 End: 57-07-1073pytjcuvnegEcxmtbex Ball Other [employer] Other Start: 94-13-9998Sphdvbgra encounterBenmeseret Wheeler Medical ClinicStart: 05-07-2023 End: 17-66-8128Vcrihnz encounter procedureRamila Pradhan [facility] start: 04-22-2023 End: 87-01-9068eeydatbwlkXzpwcmml Ball Other [employer]Env[employer] Other Start: 32-48-1487Gxvjmg outpatient visit 15 minutes Alden [facility] ClinicStart: 02-03-2023 End: 17-61-1108sizfnlglvdWgaiqnzd Ball Other [employer]Env[employer] Other Start: 84-89-5378Ihpsymgro encounterBenjamin SukumarG [facility] ClinicStart: 01-24-2023 End: 58-95-6283colrjrdqvmBqncmshi Ball Other [employer]Env[employer] Other Start: 84-63-2612Tzuddjdff encounterBenjamin [facility] ClinicStart: 01-08-2023 End: 30-64-3376otqlrogmayEyizvuzk Ball Other [employer] Other Start: 86-94-9079Gjizaoixz encounterBenjamin BallFPG [facility] Medical ClinicStart: 12-30-2022 End: 52-02-3423jymeprhabaSmzcheku Ball Other [employer] Other Start: 09-61-5045Rmmbuz outpatient visit 15 minutes Alden BallFPG [facility] Medical ClinicStart: 26-29-7977ncbegefcsnKG ALDEN BALL Facility:F2Vhixl: 12-05-2022 End: 51-69-8979gfdaqaqjrxUB REINA Delgado WESTFacility:C1Ezffl: 11-28-2022 End: 22-40-3202psvidoxsenKT REINA Delgado WESTFacility:O1Zlcjd: 11-25-2022 End: 56-59-2583wahtipwfhtAT REINA V WESTFacility:W7Tzpbo: 11-13-2022 End: 88-36-6272cdslppuwgmMI REINA V WESTFacility:W0Ezivc: 11-06-2022 End: 39-76-7121ktnarcqrveHD REINA V WESTFacility:L0Urvlz: 11-04-2022 End: 10-73-3146ialgvhjyrvKztoiiif Ball Other [employer] Other Start: 77-96-6387Sxgokhezd encounterBenjamin BallFPG [facility] Medical ClinicStart: 11-01-2022 End: 28-99-1660mefgghaxufYzexeqeb Ball Other [employer] Other Start: 51-73-3859Xmohou outpatient visit 15 minutes Alden WheelerFPG [facility] Medical ClinicStart: 10-23-2022 End: 69-52-0661duddyqbytbXD REINA Delgado WESTFacility:S3Idtzh: 10-18-2022 End: 67-66-6842wnsnzqzyjiFF DAVID V WESTFacility:U7Fqlpk: 05-28-2022 End: 57-27-0017jyzxcxufjvDE DOCTOR MISCFacility:G5Tjhtl: 05-27-2022 End: 47-64-6265gnujrxfhpaLF DOCTOR MISCFacility:U8Pqotb: 05-01-2022 End: 51-14-8943Upxtrti encounter procedureRamila Pradhan [facility] start: 02-28-2022 End: 15-14-4196ykeqybykxgMU REINA JOSEPHFacility:T0Xcsef: 01-22-2022 End: 30-01-3038Kujlbco encounter procedureEd Kramer Jr. [facility] start: 01-21-2022 End: 97-13-1442kxepyhybeaIJ BENJAMIN BALLFacility:U5Wzsjo: 12-12-2021 End: 85-88-5417Bxy Drop offRamila Pradhan [facility] Start: 12-12-2021 End: 50-16-1872Ivtpvof encounter Buddy Pradhan [facility] Procedures DateProcedureProcedure DetailPerforming ClinicianStart: 39-38-0701Whcfriizdtrvuc aspir&/inj major jt/bursa w/o Sai Arciniega DO Work Phone: Start: 08-39-8079Hnkooeaxmb examination knee 3 views Harley Arciniega DO Work Phone: Start: 04-13-2025 End: 36-86-5394Jkujy medical xm&eval intermediate estab pt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, mild stageJonatdevonte Torres DO Work Phone: comment on above: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, mild stage (Primary Dx); Epiretinal membrane (ERM) of left eye; Dry eyes, bilateral; 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 edema (CMS-HCC); Blepharitis of upper and lower eyelids of both eyes, unspecified typeStart: 04-06-2025 End: 26-38-3208LezqcRoberts Chapel&eval intermediate estab ptBlepharitis of upper and lower eyelids of both eyes, unspecified typeJovianney Priceayana DO Work Phone: comment on above:Blepharitis of upper and lower eyelids of both eyes, unspecified type (Primary Dx); 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 edema (CMS-HCC); Dry eyes, bilateral; Epiretinal membrane (ERM) of left eye; 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, mild stageStart: 01-13-2025 Arthrocentesis aspir&/inj major jt/bursa w/o Sai Reyes Jung DO Work Phone: Start: 87-79-5934Dyxmifkbod examination knee 3 views Harley Reyes Annapurna [employer] DO Work Phone: Start: 12-29-2024 End: 63-61-5002JiakoRoberts Chapel&[facility] comprhnsv estab pt 1/>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, mild stageJovianney Bedoya Bethany DO Work Phone: comment on above:Epiretinal membrane (ERM) of left eye (Primary Dx); 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, mild stage; Dry eyes, bilateral; 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 edema; Blepharitis of upper and lower eyelids of both eyes, unspecified typeStart: 64-52-8183Xndlyyhwql examination knee 3 viewsAmauryalma Amy Brown DO Work Phone: start: 46-30-0180JFVP BUNHarley Reyes Brown DO Work Phone: start: 41-30-1551ATBH CREATININEJason Amy Brown DO Work Phone: start: 31-90-5855EDMM EGFRJason Amy Brown DO Work Phone: start: 83-48-5818POUV LYTESHarley Arciniega DO Work Phone: Start: 51-35-7639KL KNEE 1 OR 2 VIEWS LEFTHarley Arciniega DO Work Phone: Start: 28-60-7976Wwwur knee replacementHarley Brown start: 15-35-9191YS LOWER EXTREMITY W/O CONTRAST LEFT Harley Arciniega DO Work Phone: Start: 47-29-1947TJ WITH CULT RFLXHarley Arciniega DO Work Phone: start: 09-29-2024 End: 80-40-1820TvgpkRoberts [facility]&eval [facility] pt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 edemaClay Torres DO Work Phone: comment on above: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 edema (Primary Dx); Epiretinal membrane (ERM) of left eye; Dry eyes, bilateral; Blepharitis of upper and lower eyelids of both eyes, unspecified type; 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, mild stage (CMS/HCC)Start: 07-09-2024 End: 98-92-9153EmfjxRoberts [facility] pt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 edemaClay Torres DO Work Phone: comment on above: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 edema (Primary Dx); Epiretinal membrane (ERM) of left eye; Dry eyes, bilateral; Blepharitis of upper and lower eyelids of both eyes, unspecified type; 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, mild stage (CMS/HCC)Start: 07-06-2024 End: 90-14-3743ZlperRoberts Chapel&eval comprhnsv estab pt 1/>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, mild stage (CMS/HCC)Clay Torres DO Work Phone: comment on above: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, mild stage (CMS/HCC) (Primary Dx); 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 edema; Epiretinal membrane (ERM) of left eye; Dry eyes, bilateral; Blepharitis of upper and lower eyelids of both eyes, unspecified typeStart: 11-34-1685Nhcmbwsqzfsrww aspir&/inj major jt/bursa w/o usJames A Sandra DO Work Phone: Start: 49-28-6451Lbmvotulvokuaw aspir&/inj major jt/bursa w/o usJames A Sandra DO Work Phone: Start: 16-76-0835Lvhgxcjirznzyb aspir&/inj major jt/bursa w/o usJames A Snadra DO Work Phone: Start: 08-36-1950Uowvib field xm uni/bi w/interp extended examJovianney Torres DO Work Phone: Start: 04-14-2024 End: 75-09-2086Fwuwx medical xm&eval intermediate estab pt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 edemaJovianney Torres DO Work Phone: comment on above:Dry eyes, bilateral (Primary Dx); 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 edema; Epiretinal membrane (ERM) of left eye; Glaucoma suspect of both eyes; Blepharitis of upper and lower eyelids of both eyes, unspecified typeStart: 39-53-6523Vctbtpnzjxawgk aspir&/inj major jt/bursa w/o usMaria B Apling PROGRAM COORDINATOR Work Phone: Start: 64-15-7060AC TOMOSYNTHESIS SCREENING BICorey Maldonado DO Work Phone: Start: 95-16-8418TzbstclxenaNjgqq Apling PROGRAM COORDINATOR Work Phone: Start: 81-61-6267PtfjyudtfjnTrsptpd A Carroll SURVEY AND MAPPING TECHNICIAN-FREELANCE WRITER Work Phone: Start: 82-74-4395Selzjudt extraction and insertion of intraocular lensRamila Prahdan Start: 13-16-5898Hajytlmp extraction and insertion of intraocular lensRamila Pradhan CholecystectomyRamila Pradhan Closed reduction of fracture of humerus with percutaneous fixation using bone pinHarley Arciniega Deliveries by (finding)Harleyalma Arciniega Injection of sclerosing agent into vein of lower limb Harley Arciniega Comment on above:2022Open reduction of fracture with internal fixationHarley Arciniega Procedure on kneeRamila Pradhan Plan of Treatment DateCare ActivityDetailAuthorStart: 12-12-2025 End: 73-17-9624Hopjjmf encounter egqgxpskm08/18/2026 9:00 AM EDT Office Visit [facility] [address] [place] [address] Harley Arciniega, DO [address] [place], [place] [id number] [facility] OrthopaedicsStart: 06-21-2025 End: 71-15-3233Mowknht encounter tnhiklumc50/25/2025 9:45 AM EST Office Visit [facility] [address] [place] [address] Clay Torres DO [address] [place] [address] [facility] EyeStart: 06-20-2025 End: 14-11-3207Vdmkzrl encounter zrhauhtli79/24/2025 9:00 AM EST Office Visit [facility] [address] [place] [address] Harley Arciniega DO [address] [place], [place] [id number] [facility] OrthopaedicsStart: 06-13-2025 End: 50-97-1501Iatgwhh encounter dhrrigbjy21/17/2025 11:00 AM EST Procedure Visit [facility] [place] [address] [place], [id number] Ruthann Camp PA [address] [place] [address] [facility] OBGYNStart: 04-14-2025 End: 43-07-8560Icgjckv encounter onkuzgiog79/18/2025 10:30 AM EDT Office Visit [facility] [address] [facility] [place] [id number] Harley Arciniega, DO [address] [place] [place] [address] [facility] ORTHOStart: 04-14-2025 End: 95-42-4205Nvuwtcr encounter lmotjomlu72/18/2025 8:30 AM EDT Office Visit [facility] [place] [facility] [address] [facility] [place] [id number] Harley Arciniega, DO [address] [place] [place] [address] [facility] OrthopaedicsStart: 04-13-2025 End: 62-93-9380Xaftigj encounter aofygtndr20/17/2025 1:45 PM EDT Office Visit [facility] [address] [place] [id number] Clay Torres, DO [address] [place] [address] ArrivedNOMS [facility] EyeComment on above:ArrivedStart: 04-06-2025 End: 39-58-0893Ddssjkx encounter procedureNOMS NB OPHTComment on above:Arrived Start: 60-15-2097CZAZM-19 Vaccine ( season)COVID-19 Vaccine ( season)[facility] HealthcareStart: 26-70-0200Tncrfmwwc vaccinationInfluenza Vaccine (#1)[facility] HealthcareStart: 69-43-9999Dlxfxeftx for malignant neoplasm of breastMammogramNOMS HealthcareStart: 01-13-2025 End: 42-93-3218Ejycpkb encounter noqefgcdc99/19/2025 10:45 AM EDT Office Visit [facility] [address] [place] [address] Harley Arciniega DO [address] [place] [place] [address] [facility] NB ORTHOStart: 12-29-2024 End: 73-35-5308Ddlqbvb encounter procedureNOMS NB OPHTComment on above:Arrived Start: 12-24-2024 End: 80-06-9202Uqgauxf encounter uakuhbaoh69/30/2025 10:15 AM EDT Office Visit [facility] [address] [place] [address] Clay Torres, DO [address] [place] [address] [facility] NB OPHTStart: 12-22-2024 End: 03-53-7655Cnlauyau SupportNOMS SWS ORTHOAOComment on above:ArrivedStart: 12-16-2024 End: 35-67-2983Kacqeqn encounter gudrhhmfy33/22/2025 9:45 AM EDT Office Visit [facility] [address] [place] [id number] Harley Arciniega DO [address] [place] [address] [facility] NB ORTHOStart: 12-08-2024 End: 24-77-9714Mfuuqbs encounter zfqppxuji29/14/2025 11:00 AM EDT Office Visit [facility] [address] [place] [address] Clay Torres DO [address] [place] [address] [facility] JOS[facility] MIGUEL OPHTStart: 98-52-7491Orbsf BMI ScreeningAdult BMI ScreeningProKettering Health Springfieldca Health SystemStart: 11-65-9019Gzjyuda ScreeningTobacco ScreeningProKettering Health Springfieldca [facility] SystemStart: 11-29-2024 End: 38-92-3762pvzwhmcuvjUDGJ CI PTComment on above:Primary osteoarthritis of left kneeStart: 11-18-2024 End: 61-60-1320Tobuxeagyg complete panel - UrineUrinalysis with reflex microscopic Lab Routine Pre-op testing Expected: 11/18/2024 (Approximate), Ex cristiano: 11/18/2025[facility] Work Phone: Comment on above:Expected: 11/18/2024 (Approximate), Expires: 11/18/2025Start: 11-18-2024 End: 03-90-0099Remsrwv encounter procedureNOMS NB ORTHOComment on above:Arrived Start: 10-05-2024 End: 27-11-2554Benskhl encounter ulvnnlpwn32/11/2025 10:00 AM EDT Office Visit [facility] [address] [facility] [facility] [place] [address] Harley Arciniega DO [address] [place] [address] NOMRadha VALDEZ ORTHOStart: 09-29-2024 End: 52-26-0209Rgkrivm encounter procedureNOMS NB OPHTComment on above:Arrived Start: 07-09-2024 End: 25-38-5990Iiohoyp encounter procedureNOMS NB OPHTComment on above:Arrived Start: 07-06-2024 End: 44-93-0685Aoxfpjt encounter xqahbezrj89/10/2024 8:45 AM EST Office Visit [facility] [address] [place] [phone] Clay Torres, DO [address] [place] [address] [facility] OPHTStart: 07-05-2024 End: 96-81-1394Badzerh encounter xrsxmvlaf82/09/2024 10:00 AM EST Office Visit [facility] [address] [place] [address] Syl Villalba, GORDON [address] [place] [address] ArrivedNOMS CI ORTHOPAEDICSComment on above:ArrivedStart: 06-15-2024 End: 40-16-3085Gcaidvz encounter procedureNOMS CI ORTHOPAEDICSComment on above: Arthritis of right kneeStart: 06-08-2024 End: 72-12-4293Zelynxg encounter iwupdkucl39/12/2024 10:00 AM EST Office Visit [facility] [address] [place] [address] Adriana Flores, [address] [place] [address] [facility]THOPAEDICSStart: 06-01-2024 End: 36-93-5270Lkspomt encounter procedureNOMS CI ORTHOPAEDICSComment on above: Chronic pain of right kneeStart: 04-14-2024 End: 03-60-4475Ocnwlab encounter wzcfjzauu95/18/2024 8:30 AM EDT Office Visit [facility] [address] [place] [address] Clay Torres, DO [address] [place] [address] [facility] NB OPHTStart: 04-13-2024 End: 36-61-1740Fczmxur encounter wenqlpspd56/17/2024 1:00 PM EDT Office Visit [facility] [address] [place] [address] Adriana Flores, [address] [place] [address] [facility]UINTA[facility] CI ORTHOPAEDICSComment on above:ArrivedStart: 03-31-2024 End: 53-75-9395Hyhihyq encounter vpiyscutx89/04/2024 8:30 AM EDT Office Visit [facility] [address] [place] [address] Syl Villalba, PROGRAM COORDINATOR [address] [place] [address] Chronic pain of right knee (Primary Dx); Arthritis of right kneeNOMS CI ORTHOPAEDICSComment on above:Chronic pain of right knee (Primary Dx); Arthritis of right kneeStart: 72-95-7113Oqcwsdhuv [facility] Start: 12-31-2023 End: 01-08-8027Gbdzfmm encounter tzagxzbcg86/05/2024 8:00 AM EDT Procedure visit [facility] [address] [place] [phone] Mitch Jett DO [address] [place], [place] [id number] [facility] SurgeryStart: 48-47-4940Hzfgyyj [facility] Work Phone: Start: 78-38-0006VYGGI-19 Vaccine ( season) COVID-19 Vaccine ( season)[facility] SystemStart: 2014 Fall Risk ScreeningFall Risk ScreeningMercy Health St. [facility] Centerca [facility] SystemStart: 1968 DTaP,Tdap and Td Vaccines (1 - Tdap)DTaP,Tdap and Td Vaccines (1 - Tdap) [facility] SystemStart: 41-01-3017Ltdoc BMI Follow Up PlanAdult BMI Follow Up PlanProCity Hospital SystemStart: 16-38-2963Ahajcagdqm ScreeningDepression ScreeningProLima City Hospitaltart: 69-29-1922TJqI/Tdap/Td Vaccines (1 - Tdap)DTaP/Tdap/Td Vaccines (1 - Tdap)[facility] HealthcareStart: 1949Medicare Annual Wellness VisitMedicare Annual Wellness VisitProCity Hospital SystemStart: 12-78-7799Awmftrzrh for malignant neoplasm of colonNOOR HealthcareStart: 57-48-4717Ywhcpgc CounselingTobacco CounselingBarney Children's Medical Center End: 13-43-1356UyupjhlmzlwJmsjfgetzvi GI Routine Rectal bleeding 1 Occurrences starting 12/05/2023 until 12/04/2024[facility] Work Phone: Comment on above:1 Occurrences starting 12/05/2023 until 12/04/2024Patient referralTrumbull Memorial Hospital Work Phone: [place] [facility] Immunizations Immunization DateImmunizationNotesCare DhbnitzbNppuxese22-29-9415xsztrzwxi virus vaccine, unspecified formulationClay Torres DO Work Phone: NOCox MonettGtbhsmzmgc54-18-6293ltjmom vaccine recombinant Ramila Pradhan [facility]09-26-2023influenza virus vaccine, unspecified formulationMercy Health [facility]09-26-2023influenza, high dose seasonal, preservative-freeAlden Wheeler Other [employer] Other [id number] vaccine recombinantAlden Wheeler Other [facility]10-31-2022influenza virus vaccine, split virus (incl. purified surface antigen)Alden Wheeler Other [employer] Other [id number] virus vaccine, unspecified formulationMercy Health [facility] Hospital12-04-2021SARS-CoV-2 (COVID-19) Ad26 vaccine, recombinantKathy Lue [facility] CenterComosf healthcare [facility] on above:Result Comment: 2022-05-01: OTF6004-86-0035eivotesbi virus vaccine, split virus (incl. purified surface antigen)Alden Wheeler Other [employer] Other [id number] virus vaccine, unspecified formulationKathy Lue [facility]03-05-2021COVID-19 vaccine, vector-nr, rS-Ad26, PF, 0.5 mL; Translations: [Susana COVID-19 Vaccine]Ramila Lue [facility] comgrmn on above:Reason for Medication: Prophylaxis 40-85-7748rqrggbbep virus vaccine, split virus (incl. purified surface antigen) Alden Wheeler Other [employer] Other [id number] virus vaccine, unspecified formulationKathy Lue [facility]10-22-2019influenza virus vaccine, split virus (incl. purified surface antigen)Alden Wheeler Other [employer] Other [id number] virus vaccine, unspecified formulationMercy Health [facility] Hospital10-10-2018influenza virus vaccine, split virus (incl. purified surface antigen)Alden Wheeler Other [phone] Other 10834104-25-2244qhyuaajha virus vaccine, unspecified formulationKathy Lue [facility]09-28-2017influenza virus vaccine, split virus (incl. purified surface antigen)Alden Wheeler Other [employer] Other [id number] virus vaccine, unspecified formulationKathy Lue [facility]09-05-2017influenza virus vaccine, unspecified formulationKathy Lue [facility]11-01-2016pneumococcal polysaccharide vaccine, 23 valentKathy Lue [facility]09-26-2016influenza virus vaccine, split virus (incl. purified surface antigen)Alden Wheeler Other [employer] Other 0613507-67-3689lzfnqvphv virus vaccine, unspecified formulationKathy Lue [facility]09-26-2016pneumococcal conjugate vaccine, 13 valentKathy Lue [facility]10-02-2015influenza virus vaccine, split virus (incl. purified surface antigen)Alden Wheeler Other [employer] Other 10836383-72-4061dgkbjqnph virus vaccine, unspecified formulationMercy Health [facility] Hospital09-23-2015pneumococcal conjugate vaccine, 13 valentBenmeseret Wheeler Other [facility] Payers DatePayer CategoryPayerPolicy [id number] 14-67-3639Afkufhu Health Insurance [id number] 1.2.840.401831.1.13.693.2.7.3.880565.409[id number] [id number] 1960Medicare [id number] 2.16.840.9.056486.57002671-11-8128Ptya-[id number] [id number] 2.16840.1.135076.3.579.2.29290-17-8726Lowdqgw [id number] 2.16840.1.961490.3.579.2.25949-10-0815Iuswemn6204183 2.16840.1.660848.3.579.2.72141-24-8541Pxjzpdz0025878 2.16840.1.737782.3.579.2.90164-11-1132Rguiktx4096371 2.16840.1.724640.3.579.2.38009-95-6045Jyevryt9449064 2.16.840.1.903919.3.579.2.79931-91-2318Ezmfdvl5999853 2.16.840.1.325587.3.579.2.67078-97-0888Qdahtiw8586135 2.16840.1.352339.3.579.2.90450-61-4026Tmvwmvj2744516 2.16840.1.688033.3.579.2.58606-82-0313Uuxzgmn7967489 2.840.1.235017.3.579.2.57820-10-1894Opxbakn08367338 2.16840.1.343005.3.579.2.186300-85-8424Coeyjpi57926206 2.0.1.392465.3.579.2.32278-13-4503Dtgmrpy83422287 2.0.1.576709.3.579.2.97651-15-2675Gzfibkx94464943 2.0.1.183863.3.579.2.59549-49-6846Jtlirve79301388 2.0.1.552702.3.579.2.02498-71-9684Daerubn85064195 2.0.1.923441.3.579.2.00169-35-4036Eoggvfg08586284 2.0.1.706107.3.579.2.155088-31-5803Qmutvkg26902154 2..1.100163.3.579.2.016418-10-6721Dbidwrl88886990 2.0.1.216303.3.579.2.984793-11-5541Ieebsye59791911 2.0.1.836048.3.579.2.861479-06-4259Bqfsvva65779467 2.840.1.598885.3.579.2.194704-21-9478Lsbhwvm28363286 2.840.1.281086.3.579.2.146906-93-9800Ylvsgup57946740 2.16.840.1.293454.3.579.2.274878-52-7288Ivqmkrl5653272 2.16.840.1.306703.3.579.2.440821-28-5660Fkkuksh7603059 2.16840.1.716164.3.579.2.591699-01-0558Uzgdecx4053809 2.16840.1.286949.3.579.2.279281-08-8580Zphiwkh9716069 2.16840.1.961157.3.579.2.576380-58-4197Eqsqmcw8406365 2.16840.1.517533.3.579.2.738347-38-8227Esbvdkg4467339 2.16840.1.161294.3.579.2.751854-97-5507Zcuocnh4734048 2.16840.1.115982.3.579.2.276002-17-8574Tukidos4090963 2.16840.1.987595.3.579.2.044053-37-3888Kjmcmsb2100601 2.16840.1.815458.3.579.2.706227-48-3061Eivmaxy2168273 2.840.1.565603.3.579.2.944726-24-2605Drrjkth1096803 2.16840.1.783646.3.579.2.539096-12-6759Urqyovv1708468 2.16840.1.352126.3.579.2.801371-41-7474Mvkmywq7988160 2.16840.1.094045.3.579.2.705479-83-8694Vodtjbx7077830 2.16840.1.619768.3.579.2.283878-94-7184Iuxrgby7129154 2.16.840.1.676267.3.579.2.926037-30-7975Mkpmfxi21770301 2.16.840.1.185859.3.579.2.50470-71-9571Dgkacnx69007994 2.16.840.1.312406.3.579.2.08812-87-1400Mxiozyg86779569 2.16.840.1.737908.3.579.2.10167-45-0795Ygrzeve32405737 2.16.840.1.154815.3.579.2.280Mvlnygg8215883 2.16.840.1.452840.3.579.2.593Unknown 1643110 2.16.840.1.935981.3.579.2.593 Social History DateTypeDetailFacilityStart: 12-12-2021 End: 58-62-7965Asghtim smoking statusEx-smoker (finding)[facility] start: 06-06-2023 End: 83-50-9979Tsd Assigned At [facility] start: 42-34-2834Enzlwyo smoking statusNeverExecutive Urology of [facility] Hospitaltart: 89-47-8752Ycr Assigned At [facility] End: 84-70-7167Dznjips of tobacco useCurrent smokerNOMS Healthcare End: 47-70-9433Cycaivq of tobacco useCigarette SmokerNOMS HealthcareStart: 02-10-2023 End: 71-41-5372Oqjstxh use and exposureSmokeless tobacco non-userN[facility]S Healthcare Start: 04-14-2024 End: 40-59-6977Agucpfcbu beverage intakeCurrent drinker of alcohol (finding)[facility] HealthcareStart: 06-06-2023 End: 14-99-1764Tyzjezh of Social functionNOMS HealthcareHow often to you have a drink containing alcohol?2-4 times a monthNOMS HealthcareHow many standard drinks containing alcohol do you have on a typical day?3 or 4NOMS HealthcareHow often do you have 6 or more drinks on 1 occasion?NeverNOMS HealthcareStart: 55-53-3445Kmhmsrm CommentLast smoked: 20 yearsNOMS HealthcareStart: 01-29-2023 Alcohol Comment3-6N[facility]S HealthcareStart: 61-95-6875Vrq assigned at birthNot on fileNOOR HealthcareTobacco smoking status NHISUnknown if ever smokedTrumbull Memorial Hospital Work Phone: Start: 02-28-2020 End: 14-08-0338TjgFmwtvn (finding)[facility] Hospitaltart: 43-16-2609Vbityrd use and exposureUser of smokeless tobaccoProMedica Health SystemStart: 76-62-4485Qpjaduw CommentsociallyProMedica Health SystemStart: 59-32-8832Gznybno CommentOccasional wine and alcoholNOOR HealthcareSexual OrientationAdena [facility] Medical Equipment Procedure CodeEquipment CodeEquipment Original TextEquipment IdentifierDates {01}[id number] FDAStart: 03-21-2020 {01}[id number]{17}[id number]{21}[id number] FDAStart: 69-67-4176FTTT TOTAL ROBOT ARTHROPLASTY Jung BORGES, Harley A 12/01/24 Unknown Knee LFDAStart: 00-27-6302DIGV TOTAL ROBOT ARTHROPLASTY Jung DO, Harley A 12/01/24 Unknown Knee LFDAStart: 11-14-3387RQMK TOTAL ROBOT ARTHROPLASTY Jung DO, Harley A 12/01/24 Unknown Knee L FDAStart: 18-67-5450JFEN TOTAL ROBOT ARTHROPLASTY Jung DO, Harley A 12/01/24 Unknown Knee LFDAStart: 33-03-9698PVWA TOTAL ROBOT ARTHROPLASTY Harley Arciniega DO 12/01/24 Unknown Knee LFDAStart: 57-69-6232NIAP TOTAL ROBOT ARTHROPLASTY Harley Arciniega DO 12/01/24 Unknown Knee LFDAStart: 41-00-2613JJSR TOTAL ROBOT ARTHROPLASTY Harley Arciniega DO 12/01/24 Unknown Knee LFDAStart: 87-43-3635CSIB TOTAL ROBOT ARTHROPLASTY Hraley Arciniega DO 12/01/24 Unknown Knee LFDAStart: 82-08-7977AEQI TOTAL ROBOT ARTHROPLASTY Harley Arciniega DO 12/01/24 Unknown Knee L FDAStart: 95-53-0747ERBS TOTAL ROBOT ARTHROPLASTY Harley Arciniega DO 12/01/24 Unknown Knee LFDAStart: 46-12-5561HRKQ TOTAL ROBOT ARTHROPLASTY Harley Arciniega DO 12/01/24 Unknown Knee LFDAStart: 74-61-5773ETYQ TOTAL ROBOT ARTHROPLASTY Harley Arciniega DO 12/01/24 Unknown Knee LFDAStart: 12-01-2024 Functional Status UbzvSwaqbseoflGdztioZqkjusof35-78-9851Omadnqjgqb StatusNoAdena [facility]10-16-2024Functional StatusN/A[facility]10-11-2023Functional StatusN/A[facility]10-05-2022Functional StatusN/A[facility] Clinical Notes 12-12-2021 to 06-01-2025 Note Date & CnvcLeklHriirjus37-79-3029 Hospital Discharge instructions Patient Education 06/01/2025 08:52:12 Botulinum Toxin Bladder Injection Botulinum Toxin Bladder Injection A botulinum toxin bladder injection is a procedure to treat an overactive bladder. During the procedure, a drug called botulinum toxin is injected into the bladder through a long, thin needle. This drug relaxes the bladder muscles and reduces overactivity. You may need this procedure if your medicines are not working or you cannot take them. The procedure may be repeated as needed. The treatment is done once and it usually lasts for 6 months. Your health care provider will monitor you to see how well you respond. Tell a health care provider about: Any allergies you have. All medicines you are taking, including vitamins, herbs, eye drops, creams, and vjkq-vqw-biphygo medicines. Any problems you or family members have had with anesthetic medicines. Any bleeding problems you have. Any surgeries you have had. Any medical conditions you have. Any previous reactions to a botulinum toxin injection. Any symptoms of urinary tract infection. These include chills, fever, a burning feeling when passing urine, and needing to pass urine often. Whether you are or may be . What are the risks? Generally this is a safe procedure. However, problems may occur, including: Not being able to pass urine. If this happens, you may need to have your bladder emptied with a thin tube (urinary catheter). Bleeding. Urinary tract infection. Allergic reaction to the botulinum toxin. Pain or burning when passing urine. Damage to nearby structures or organs. What happens before the procedure? When to stop eating and drinking Follow instructions from your health care provider about what you may eat and drink before your procedure. These may include: 8 hours before the procedure ?Stop eating most foods. Do not eat meat, fried foods, or fatty foods. ?Eat only light foods, such as toast or crackers. ?All liquids are okay except energy drinks and alcohol. 6 hours before the procedure ?Stop eating. ?Drink only clear liquids, such as water, clear fruit juice, black coffee, plain tea, and sports drinks. ?Do not drink energy drinks or alcohol. 2 hours before the procedure ?Stop drinking all liquids. ?You may be allowed to take medicines with small sips of water. If you do not follow your health care provider's instructions, your procedure may be delayed or canceled. Medicines Ask your health care provider about: Changing or stopping your regular medicines. This is especially important if you are taking diabetes medicines or blood thinners. Taking medicines such as aspirin and ibuprofen. These medicines can thin your blood. Do not take these medicines unless your health care provider tells you to take them. Taking ycbl-ukm-nyoaaut medicines, vitamins, herbs, and supplements. General instructions Ask your health care provider what steps will be taken to help prevent infection. These steps may include: ?Removing hair at the procedure site. ?Washing skin with a germ-killing soap. ?Taking antibiotic medicine. If you will be going home right after the procedure, plan to have a responsible adult: ?Take you home from the hospital or clinic. You will not be allowed to drive. ?Care for you for the time you are told. What happens during the procedure? You will be asked to empty your bladder. An IV will be inserted into one of your veins. You will be given one or more of the following: ?A medicine to help you relax (sedative). ?A medicine to numb the area (local anesthetic). ?A medicine to make you fall asleep (general anesthetic). A long, thin scope called a cystoscope will be passed into your bladder through the part of the body that carries urine from your bladder (urethra). The cystoscope will be used to fill your bladder with water. A long needle will be passed through the cystoscope and into the bladder. The botulinum toxin will be injected into your bladder. It may be injected into multiple areas of your bladder. The cystoscope will be removed and your bladder will be emptied with a urinary catheter. The procedure may vary among health care providers and hospitals. What can I expect after the procedure? After your procedure, it is common to have: Blood-tinged urine. Burning or soreness when you pass urine. Follow these instructions at home: Medicines Take psyq-wel-aacecrl and prescription medicines only as told by your health care provider. If you were prescribed an antibiotic medicine, take it as told by your health care provider. Do notstop using the antibiotic even if you start to feel better. General instructions If you were given a sedative during the procedure, it can affect you for several hours. Do not drive or operate machinery until your health care provider says that it is safe. Drink enough fluid to keep your urine pale yellow. Return to your normal activities as told by your health care provider. Ask your health care provider what activities are safe for you. Keep all follow-up visits. Contact a health care provider if you have: A fever or chills. Blood-tinged urine for more than one day after your procedure. Worsening pain or burning when you pass urine. Pain or burning when passing urine for more than two days after your procedure. Trouble emptying your bladder. Get help right away if you: Have bright red blood in your urine. Are unable to pass urine. Summary A botulinum toxin bladder injection is a procedure to treat an overactive bladder. This is generally a safe procedure. However, problems may occur, including not being able to pass urine, bleeding, infection, pain, and an allergic reaction to the botulinum toxin. You will be told when to stop eating and drinking, and what medicines to change or stop. Follow instructions carefully. After the procedure, it is common to have blood in your urine and to have soreness or burning when passing urine. Contact a health care provider if you have a fever, blood in your urine for more than a few days, or trouble passing urine. Get help right away if you have bright red blood in your urine, or if you are unable to pass urine. This information is not intended to replace advice given to you by your health care provider. Make sure you discuss any questions you have with your health care provider. Document Revised: 01/18/2022 Document Reviewed: 01/18/2022 [employer] Patient Education 2023 Med Access. 06/01/2025 08:52:08 Dietary Guidelines to Help Prevent Kidney Stones [...] include: ?8 oz (237 mL) of milk, maweneq-sikxzbutvxwf-xedij milk, and calcium- fortifiedfruit juice. Calcium-fortified means [...] the table and allow each person to addtheir own salt to taste. Use vegetable protein, [...] portion sizes. For most meat and fish, oneserving is about the size of the palm [...] ?Spinach (cooked), rhubarb, beets, sweet potatoes, and Rwandan chard. ?Peanuts. ?Potato chips, finnish fries, and baked potatoes with skin on. ?Nuts and nut products. ?Chocolate. If you regularly take a diuretic medicine, make sure to eat at least 1 or 2 servings of fruits or vegetables that are high in potassium each day. These include: ?Avocado. ?Banana. ?Narrows, prune, carrot, or tomato juice. ?Baked potato. [...] magnesium, fish oil, or vitamin B6. Take wtjt-woe-mkjryfa and prescription medicines only as told by [...] Casseroles. Pizza. Lasagna. Frozen meals. Potato chips. Tajik fries. The items listed above may not [...] provider. Document Revised: 10/24/2022 Document Reviewed: 10/24/2022 [employer] Patient Education 2023 Med Access. Follow Up Care 05/12/2024 11:01:42 With:Lorne GONZALEZ, TEDDY Gonzalez, URO Address: When: Unknown [facility] 11-05-2025 NotePatient Education Nephrology Dietary Guidelines to Help Prevent [...] labels. Limit your salt (sodium) intake to lessthan 1,500 mg a day. ??? Choose foods with calcium for each meal and snack. Try to eat about 300 mg of calcium at each meal. Foods that contain 200?500 mg of calcium a serving include: ? 8 oz (237 mL) of milk, anqaqiz-pvcecmektdtj-mjmgy milk, and calcium- fortifiedfruit juice. Calcium-fortified means [...] on the table and allow each person toadd their own salt to taste. ??? Use [...] Spinach (cooked), rhubarb, beets, sweet potatoes, and Rwandan chard. ? Peanuts. ? Potato chips, finnish fries, and baked potatoes with skin on. ? Nuts and nut products. ? Chocolate. ??? If you regularly take a diuretic medicine, make sure to eat at least 1 or 2 servings of fruits or vegetables that are high in potassium each day. These include: ? Avocado. ? Banana. ? Narrows, prune, carrot, or tomato juice. ? Baked potato. ? Cabbage. ? Beans and split peas. Lifestyle ??? Drink enough fluid to keep your urine pale yellow. This is the most important thing you can do.Spread your fluid intake throughout the day. ??? [...] fish oil, or vitamin B6. ??? Take guth-kda-yzkrqfk and prescription medicines only as told by your health (more content not included)...[facility]09-18-2025 History of Present illness Narrative* MAE Koch - 04/14/2025 8:30 AM EDT Associated Order(s): L Inj/Asp: R knee Post-Procedure Diagnose(s): Chronic pain of right knee L Inj/Asp: R knee on 04/14/2025 8:46 AM Indications: pain Details: 22 G needle, lateral approach Medications: 30 mg cross-linked hyaluronate 30 MG/3ML Consent was given by the patient. * Harley Arciniega, - 04/14/2025 8:30 AM EDT Images from the original note were not included. @[facility]ITALDATE@ [place] Amy Delores is a 75 y.o. female [...] the right knee prior to departure for [facility]. Leaving for [place] in early June. SUBJECTIVE: MEDICATIONS: Current Outpatient [...] arthroscopy LASIK ORIF ANKLE FRACTURE Right 2003 ID GUM GRAFT 2 peridontal sx TOTAL KNEE ARTHROPLASTY [facility] FRACTURE SURGERY Right FAMILY HISTORY: Family [...] anesthetized with ethyl chloride and the knee wasthen injected with 3 mL of Gel- One with a 22-gauge 1-1/2 inch needle. The patient tolerated this well. A Band- Aid was applied. The patient was instructed to ice the knee and to watch for any signs ofinfection including redness, increased pain in the knee, drainage from the injection site, fever, chills, etc. The patient was instructed to call the office if he/she experiences any adverse reactionfrom the injection. Follow-up: 11/2025 with left knee [...] note was created using voice recognition through Moz. documented in this encounterSaint John's Saint Francis [id number] History of Present illness Narrative* Clay Torres DO - 04/13/2025 1:45 PM EDT Images from the original note [...] by mouth in the morning and 1 capsule(300 mg) in the evening and 1 capsule [...] sure Blepharitis BRVO (branch retinal vein occlusion) ([facility]) Cataract Dry eyes DVT (deep venous thrombosis) ([facility]) 03/10/2024 LT leg Epiretinal membrane (ERM) of [...] lens, Open posterior capsule Posterior chamber intraocular lens,Open posterior capsule Anterior Vitreous Normal Normal Assessment/Plan [...] (OU) at bedtime. (Had been seen in [place] winter 2024 with intraocular pressure (IOP) of 9 both eyes (OU). - R/B/A/E provided for SLT. documented in this encounterSaint John's Saint Francis [id number] History of Present illness Narrative* Clay Torres DO - 04/06/2025 9:15 AM EDT Images from the original note [...] discharge, questions or concerns. - Pt sees Zane Bertrand. - Using Pred Acetate both eyes (OU) [...] eye (OS) BID. (Had been seen in winter with intraocular pressure (IOP) of 9 both eyes (OU)) - Pt has had steroid injections for bad knees. Due to see ortho next week. documented in this encounterSaint John's Saint Francis HospitalLmourjzhqp01-74-5157 Hospital Discharge instructions Patient Education 02/25/2025 15:56:46 Urinary Incontinence Urinary Incontinence Urinary incontinence refers to a condition in which a person is unable to control where and when topass urine. A person with this condition will urinate involuntarily. This means that the person urinates when he or she does not mean to. What are the causes? This condition may be caused by: Medicines. Infections. Constipation. Overactive bladder muscles. Weak bladder muscles. Weak pelvic floor muscles. These muscles provide support for the bladder, intestine, and, in women,the uterus. Enlarged prostate in men. The prostate [...] a small amount, or constantly dribbling urine (overflowincontinence). Urinating because you cannot get to the [...] fiber include beans, whole grains, and fresh fruitsand vegetables. Behavioral changes, such as: ?Pelvic floor [...] nerve stimulation). ?For women, using a medical psychotherapist to prevent urine leaks. This is a small, tampon-like, disposabledevice that is inserted into the urethra. ?Injecting [...] right after experiencing incontinence. General instructions Take lrbh-ohx-malpdxa and prescription medicines only as told by [...] important. Where to find more information National [place] of Diabetes and Digestive and Kidney Diseases: www.niddk.nih.gov [employer]: www.urologyhealth.org Contact a health care [...] is unable to control where and when topass urine. This condition may be caused by medicines, infection, weak bladder muscles, weak pelvic floor muscles, enlargement of the prostate (in men), or surgery. Factors such as older age, obesity, and childbirth, menopause, neurological diseases, andchronic coughing may increase your risk for developing [...] provider. Document Revised: 02/16/2021 Document Reviewed: 02/16/2021 [employer] Patient Education 2023 [employer] 02/25/2025 15:56:44 Overactive Bladder, Adult Overactive Bladder, [...] You may also have very sensitive muscles thatmake your bladder squeeze too soon. This condition [...] your health care provider. General instructions Take amci-nog-sjrablm and prescription medicines only as told by [...] provider. Document Revised: 04/02/2021 Document Reviewed: 04/02/2021 [employer] Patient Education 2023 [employer]. 02/25/2025 15:56:44 Hematuria, Adult Hematuria, Adult Hematuria [...] Follow these instructions at home: Medicines Take dcsm-pbv-kragwdj and prescription medicines only as told by your health care provider. If you were prescribed an antibiotic medicine, take it as told by your health care provider. Do notstop taking the antibiotic even if you start to feel better. Eating and drinking Drink enough fluid to keep your urine pale yellow. It is recommended that you drink 3 4 quarts (2.83.8 L) a day. If you have been diagnosed with an infection, drinking cranberry juice in addition tolarge amounts of water is recommended. Avoid caffeine, [...] or the blood stops without treatment. Take jmaj-txd-ekxxrua and prescription medicines only as told by your health care provider. Drink enough fluid to keep your urine pale yellow. This information is not intended to replace advice given to you by your health care provider. Make sure you discuss any questions you have with your health care provider. Document Revised: 03/14/2021 Document Reviewed: 03/14/2021 [employer] Patient Education 2023 [employer]. 02/25/2025 15:56:43 Dietary Guidelines to Help Prevent [...] include: ?8 oz (237 mL) of milk, aifqniu-zhhtthhkwkku-mwvox milk, and calcium- fortifiedfruit juice. Calcium-fortified means [...] the table and allow each person to addtheir own salt to taste. Use vegetable protein, [...] portion sizes. For most meat and fish, oneserving is about the size of the palm [...] ?Spinach (cooked), rhubarb, beets, sweet potatoes, and Rw[place]an chard. ?Peanuts. ?Potato chips, finnish fries, and baked potatoes with skin on. ?Nuts and nut products. ?Chocolate. If you regularly take a diuretic medicine, make sure to eat at least 1 or 2 servings of fruits or vegetables that are high in potassium each day. These include: ?Avocado. ?Banana. ?Narrows, prune, carrot, or tomato juice. ?Baked potato. [...] magnesium, fish oil, or vitamin B6. Take liip-ipe-wsmtyky and prescription medicines only as told by [...] Casseroles. Pizza. Lasagna. Frozen meals. Potato chips. Tajik fries. The items listed above may not [...] provider. Document Revised: 10/24/2022 Document Reviewed: 10/24/2022 [employer] Patient Education 2023 [employer] Follow Up Care 02/25/2025 09:27:22 With:Lorne GONZALEZ, TEDDY Gonzalez, URO Address: [facility] Jayce Quinonez[address] [address]- When: Unknown Comments:as scheduled apr 2025 [facility] 08-01-2025 NotePatient Education Nephrology Dietary Guidelines to Help Prevent [...] labels. Limit your salt (sodium) intake to lessthan 1,500 mg a day. ??? Choose foods with calcium for each meal and snack. Try to eat about 300 mg of calcium at each meal. Foods that contain 200?500 mg of calcium a serving include: ? 8 oz (237 mL) of milk, qbunjca-ygkvsjvclwbz-qidme milk, and calcium- fortifiedfruit juice. Calcium-fortified means [...] on the table and allow each person toadd their own salt to taste. ??? Use [...] Spinach (cooked), rhubarb, beets, sweet potatoes, and Rwandan chard. ? Peanuts. ? Potato chips, finnish fries, and baked potatoes with skin on. ? Nuts and nut products. ? Chocolate. ??? If you regularly take a diuretic medicine, make sure to eat at least 1 or 2 servings of fruits or vegetables that are high in potassium each day. These include: ? Avocado. ? Banana. ? Narrows, prune, carrot, or tomato juice. ? Baked potato. ? Cabbage. ? Beans and split peas. Lifestyle ??? Drink enough fluid to keep your urine pale yellow. This is the most important thing you can do.Spread your fluid intake throughout the day. ??? [...] fish oil, or vitamin B6. ??? Take slwk-ukz-jsrufdo and prescription medicines only as told by your health (more content not included)...[facility]06-19-2025 History of Present illness Narrative* MAE Koch - 01/13/2025 10:45 AM EDT Associated Order(s): L Inj/Asp: R knee Post-Procedure Diagnose(s): Chronic pain of right knee L Inj/Asp: R knee on 01/13/2025 11:43 AM Indications: pain Details: 22 G needle, lateral approach Medications: 32 mg triamcinolone acetonide 32 MG Consent was given by the patient. * Harley Arciniega DO - 01/13/2025 10:45 AM EDT Images from the original note were not included. @SHAHIDDATE@ Donna Reyes Delores is a 74 y.o. [...] the swelling in her knee varies from dayto day. Satisfaction is expressed with the minimal scarring from the surgery, contrary to her usualtendency to scar poorly. Recently, she experienced discomfort in her right knee, but the pain has since subsided. No injections have been received since her surgery. The last injection was administered on 06/15/2024, markinga period of 7 months without treatment. She is planning a trip to [facility] in March 2025. SUBJECTIVE: MEDICATIONS: Current Outpatient [...] arthroscopy LASIK ORIF ANKLE FRACTURE Right 2003 ID GUM GRAFT 2 peridontal sx TOTAL KNEE ARTHROPLASTY Left 12/01/20[place] [facility] Right REVIEW OF SYMPTOMS: [...] anesthetized with ethyl chloride and the knee wasthen injected with 5 mL Zilretta with a [...] note was created using voice recognition through Moz. documented in this encounterSaint John's Saint Francis HospitalHutrxnmtgn24-03-7249 History of Present illness Narrative* Clay Torres DO - 12/29/2024 9:00 AM EDT Assessment/Plan Diagnoses and all orders for this [...] discharge, questions or concerns. - Pt sees Zane Bertrand. - Using Pred Acetate both eyes (OU) [...] pressure (IOP) found on exam. - Cont Vondaigan (attempted to Rx Zioptan however kicked back) both eyes (OU) at bedtime. Pt cannot tolerate generic Latanoprost. - Cont Dorz/Dick left eye (OS) BID. (Had been seen in winter with intraocular pressure (IOP) of 9 both eyes (OU)) documented in this encounterNOMS [id number] History of Present illness Narrative* Harley Arciniega, DO - 12/16/2024 9:45 AM EDT Images from the original note were not included. @LULI@ Donna Estrella is a 74 y.o. female who presents [...] to start outpatient therapy next week in [place]. Her current medication regimen includes Eliquis, which [...] 300 mg, Oral, 3 times daily HYDROcodone-acetaminophen ([place]) 5-325 MG tablet 1-2 tablets, Oral, Every [...] KNEE SURGERY 2009 Arthroscopy Knee KNEE SURGERY 2009 knee arthroscopy LASIK ORIF ANKLE FRACTURE Right 2003 ID GUM GRAFT 2 peridontal sx TOTAL KNEE ARTHROPLASTY Left 12/01/2024 [place] [facility] [place] Right REVIEW OF SYMPTOMS: [...] (50 mg) every 12 hours with or withoutfood. Harley Arciniega D.O. Attestation This note was created using voice recognition through Moz. documented in this encounterSaint John's Saint Francis HospitalXbratwioqc24-56-4208 NoteProgress Note-Physician Patient: DONNA ESTRELLA Age: 74 years Sex: Female : 1950 Associated Diagnoses: None Author: Adriana Boone MD Postoperative Information Postoperative disposition: Postoperative disposition: To PACU. Optimetrix number: Optimetrix number [id number]. Anesthetic utilized: General. Health Status Allergies: Allergic [...] meets criteria ( From PACU to floor ).[facility] CenterComment on above:Result Comment: Electronically Signed By: Adriana Boone MD\.br\Date and Time Signed: 12/05/24 10:38 [id number] Evaluation + Plan noteExtracted from:Title:Discharge Summary Author:Harley Arciniega DO ADate:12/02/24 Discharge Information Discharge Summary Information: Admit Date/Time: [...] Daily, 0 Refill(s) omega-3 polyunsaturated fatty acids ([employer] Bounty Red Krill Oil 500 mg oral capsule) 1 cap, Oral, Daily, 0 Refill(s) potassium chloride (potassium chloride 99 mg oral tablet) 99 mg, 1 tab(s), Oral, Daily, 100 tab(s),0 Refill(s) prednisoLONE ophthalmic (prednisoLONE Opth acetate 1% Susp 5 mL) 1 drop(s), INSTILL 1 DROP INTO BOTH EYES 4 TIMES A DAY tizanidine (tiZANidine 2 mg Tab) 0 Refill(s) Extracted from:Title:ANES Pre-operative Note uthor:Adriana Boone MDDate: 12/01/24 Patient: DONNA ESTRELLA Age: 74 years Sex: [...] list: All Problems Anemia / SNOMED CT 290943813 / Confirmed Arthritis / SNOMED CT 6315884 / Confirmed Asymptomatic microscopic hematuria / SNOMED CT 6085091367 / Confirmed BMI 36.0-36.9,adult / SNOMED CT 558166369 / Confirmed Former smoker / SNOMED CT 92802559 / Confirmed Kidney stones / SNOMED CT 217497851 / Confirmed Mixed incontinence / SNOMED CT 11301472 / Confirmed Nocturia / SNOMED CT 704223404 / Confirmed Renal cysts, acquired, bilateral / SNOMED CT 964446160 / Confirmed Ureteral stone / SNOMED CT 12805070 / Confirmed Ureteral stone with hydronephrosis / SNOMED CT 5650261807 / Confirmed, Active Problems (11) Anemia Arthritis [...] Cataract extraction and insertion of intraocular lens (6905429248) on 2020 at 70 Years. Cataract extraction and insertion of intraocular lens (4548920175) on 03/21/2020 at 69 Years. Cholecystectomy (77173229). Procedure on knee (664646606). Sclerotherapy of vein of lower limbs (6886382992). Comments: 11/18/2024 10:38 EDT - Adams ALMANZA, Keyonna Morocho 2022 Open reduction and internal fixation of right ankle fracture (384317347). CRPP (closed reduction and percutaneous pinning) of fracture of right wrist (4288023646). delivery x2 (7992484255). Social History Social & Psychosocial Habits Alcohol [...] (last 24 hrs) Last Charted Heart Rate Zvjvtlonj53 bpm (DECEMBER 01 06:) RZU961 mmHg (DECEMBER 01:03) DBP81 mmHg (DECEMBER 01:) Airway: Mallampati classification: II (soft palate, fauces, uvula visible). Respiratory: Lungs are clear to auscultation, Respirations are non-labored, adequate air exchange. Cardiovascular: Regular rhythm, No murmur, no JVD or edema. Review / Management Results review: No qualifying data available . Plan [place] [employer] Anesthesiologists (ASA) physical status classification: Class II. Anesthetic Preoperative Plan: Anesthesia. Regional Spinal, and adductor canal block.Addendum by Adriana Boone MD on December 01, 2024 10:25 EDTOK Future Appointments Appointment Date:05/18/2025 08:00:00 AM Scheduled Provider:Ramila Pradhan MD Location:[facility] Appointment Type:URO Office Visit Diagnostic Tests Pending * Path. 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 It is therefore advised not to drive until after yourfirst office visit following surgery. FOLLOW-UP OFFICE VISIT: Harley Arciniega DO [facility] [address] [place], [place] [address] Reviewed: 12-17[facility]05-08-2025 NoteProgress Note-Physician Patient: DONNA ESTRELLA Age: 74 [...] Diastolic Blood Pressure 80 mmHg SpO2 95 %[facility] CenterComment on above:Result Comment: Electronically Signed By: Harley Arciniega DO\.br\Date and Time Signed: 12/02/24 07:43 [id number] NotePatient Education - Text [place], [place] [facility] DISCHARGE INSTRUCTIONS: TOTAL KNEE [...] will continue at home, possibly with the help desk assistant of Home Health Physical Therapy or [...] 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 It is therefore advised not to drive until after yourfirst office visit following surgery. FOLLOW-UP OFFICE VISIT: Harley Arciniega, DO [facility] [address] [place] [address] Reviewed: 12-17[facility]05-07-2025 NoteInterdisciplinary Note - PT PT Evaluation completed with an AMPAC score of 18/24. Pt was able to perform bed mobility and transfer with Min A. Pt was able to ambulate a short distance art this time. Will follow daily. Will provide recommendations beginning on POD # 1 [facility]05-07-2025 NoteProgress Note-Physician Patient: DONNA ESTRELLA Age: 74 [...] list: All Problems Anemia / SNOMED CT 504757199 / Confirmed Arthritis / SNOMED CT 7830140 / Confirmed Asymptomatic microscopic hematuria / SNOMED CT 2268176080 / Confirmed BMI 36.0-36.9,adult / SNOMED CT 972237381 / Confirmed Former smoker / SNOMED CT 94271290 / Confirmed Kidney stones / SNOMED CT 761165503 / Confirmed Mixed incontinence / SNOMED CT 14022997 / Confirmed Nocturia / SNOMED CT 563700722 / Confirmed Renal cysts, acquired, bilateral / SNOMED CT 863193353 / Confirmed Ureteral stone / SNOMED CT 36830196 / Confirmed Ureteral stone with hydronephrosis / SNOMED CT 2863896479 / Confirmed, Active Problems (11) Anemia Arthritis [...] Cataract extraction and insertion of intraocular lens (8716717532) on 2020 at 70 Years. Cataract extraction and insertion of intraocular lens (2771884844) on 03/21/2020 at 69 Years. Cholecystectomy (38123890). Procedure on knee (397701982). Sclerotherapy of vein of lower limbs (7929521904). 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 It is therefore advised not to drive until after yourfirst office visit following surgery. FOLLOW-UP OFFICE VISIT: Harley Arciniega, DO [facility] [address] [place], [place] [address] Reviewed: 12-17 Follow Up Care 10/14/2024 09:57:46 With:ALDEN WHEELER Address: [address] [place] [address] Business (1) When: Unknown Comments:No need to see PCP at this time unless symptoms worsen. 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 It is therefore advised not to drive until after yourfirst office visit following surgery. FOLLOW-UP OFFICE VISIT: Harley Arciniega DO [facility] [address] [place] [address] Reviewed: 12-17[facility]04-24-20[facility] History of Present illness Narrative* Harley Arciniega DO - 11/18/2024 9:30 AM EDT Images from the original note were not included. @SHAHIDDATE@ Donna Reyes Delores is a 74 y.o. [...] arthroscopy LASIK ORIF ANKLE FRACTURE Right 2003 ID GUM GRAFT 2 peridontal sx WRIST FRACTURE [...] with a left total knee arthroplasty with [employer] robotic arm assistance. The [employer] platform will be utilized. Anticipate greater than [...] postoperative pain control. Light compression stockings or DONELL hose, either thigh-high or waist-high, recommended for [...] note was created using voice recognition through Moz. documented in this [facility]04-08-2025 History of Present illness Narrative* Clay Torres DO - 11/02/2024 1:06 PM EDT Images from the original note were not included. Assessment/Plan documented in this [facility]03-05-2025 History of Present illness Narrative* Clay Torres [...] discharge, questions or concerns. - Pt sees Zane Bertrand. - Using Pred Acetate both eyes (OU) [...] eye (OS) BID. (Had been seen in [place] winter 2024 with intraocular pressure (IOP) of 9 both eyes (OU)) documented in this encounterSaint John's Saint Francis HospitalHjglpalaks01-23-6888 History of Present illness Narrative* Clay Torres [...] discharge, questions or concerns. - Pt sees Santos BertrandARafiaC. - Using Pred Acetate both eyes (OU) [...] both eyes (OU) BID. documented in this encounterSaint John's Saint Francis HospitalYjfglcagzj51-05-1977 History of Present illness Narrative* Clay Torres [...] cannot tolerate generic Latanoprost. documented in this encounterSaint John's Saint Francis HospitalUnnmafapaf66-01-2410 History of Present illness Narrative* Syl Villalba [...] improvement which only lasted about 1 week, notesdonna started using a new elliptical bike unsure [...] injx 06/25/23, mobic prn, xrays RT knee [facility] 10/30/23. depo medrol injection 10/30/23, 02/16/24, [...] in a few days. documented in this [facility]12-06-2024 Telephone encounter Note* Telephone Encounter - SERGIO Arellano - 07/02/2024 8:23 AM EST Looks like a patient Abbi has been treating,, you can schedule with her for eval. [facility] Work Phone: [phone]) 858-935812-06-2024 Miscellaneous Notes* Telephone Encounter - SERGIO Arellano - 07/02/2024 8:23 AM EST Looks like a patient Abbi has been treating,, you can schedule with her for eval. * Telephone Encounter - Ashley Looney - 07/02/2024 8:05 AM EST Patient called in stating that she saw on 06/15. She stated that what was done did not work. She would like to schedule for a steroid injection in her knee if possible. Please advise. documented in this [facility]12-06-2024 Telephone encounter Note* Telephone Encounter - Ashley Looney - 07/02/2024 8:05 AM EST Patient called in stating that she saw on 06/15. She stated that what was done did not work. She would like to schedule for a steroid injection in her knee if possible. Please advise. [facility] HospitalAphtvhjpjg56-63-6883 History of Present illness Narrative* Adriana Flores DO - 06/15/2024 10:30 AM ESTAssociated Order(s): L [...] if she desires a referral to another web analytics specialist we would be happy to make referral, she states she would like to continue her care here. documented in this [facility]11-12-2024 History of Present illness Narrative* Adriana Flores [...] given by the patient. documented in this [facility]11-05-2024 History of Present illness Narrative* Adriana Flores, DO - 06/01/2024 9:30 AM ESTAssociated Order(s): [...] to pain. Last depo injx 03/31 per Abbi, she notes it took 1 week for [...] injx 06/25/23, mobic prn, xrays RT knee [facility] [facility] 10/30/23. depo medrol injection 10/30/23, 02/16/24, [...] vein occlusion) Cataract DVT (deep venous thrombosis) ([facility]) 03/10/2024 LT leg Epiretinal membrane (ERM) of [...] if she desires a referral to another web analytics specialist we would be happy to make referral, she states she would like to continue her care here. Ignacio Flores D.O. documented in this encounterSaint John's Saint Francis HospitalWnoaggjkpx33-25-1436 Hospital Discharge instructions Patient Education 05/12/2024 10:51:15 [...] including vitamins, herbs, eye drops, creams, and mtqj-mkx-llligrt medicines. Any problems you or family members [...] provider tells you to take them. Taking ddfn-rug-gyujcgx medicines, vitamins, herbs, and supplements. Tests You [...] Follow these instructions at home: Medicines Take gqzg-lvm-jodrlid and prescription medicines only as told by [...] provider. Document Revised: 03/27/2022 Document Reviewed: 02/23/2021 [employer] Solutions Patient Education 2023 Med Access. 05/12/2024 10:39:08 Kegel Exercises Kegel Exercises Kegel [...] provider. Document Revised: 11/22/2021 Document Reviewed: 11/22/2021 [employer] Patient Education 2023 Med Access. Follow Up Care 05/12/2023 11:08:20 With:Lorne OGNZALEZ, Ramila Pascal, CLIFL, URO Address: [address] [place] [address] [place] [address] [phone] When: Unknown [facility] 09-18-2024 NoteRight Eye Reliability was good. Progression has been stable. Foveal threshold was normal. Findings include non-specific defects. Left Eye Reliability was good. Progression has been stable. Foveal threshold was normal. Findings include non-specific defects.[facility] [id number] History of Present illness Narrative* Clay Torres, - 04/14/2024 8:30 AM EDT Images from [...] month to see me. documented in this encounterSaint John's Saint Francis [id number] History of Present illness Narrative* Adriana Flores DO - 04/13/2024 1:00 PM EDT Images from the original note were not included. HISTORY OF PRESENT ILLNESS: Donna Estrella is an 74 y.o. @ female. Chief complaint RT knee pain RT Knee: 2 weeks s/p depo injx 03/31 per Abbi, she notes it took 1 week for [...] injx 06/25/23, mobic prn, xrays RT knee [place] [facility] 10/30/23. depo medrol injection 10/30/23, 02/16/24, [...] vein occlusion) Cataract DVT (deep venous thrombosis) ([facility]) 03/10/2024 LT leg Epiretinal membrane (ERM) of left eye Osteopenia PVD (posterior vitreous detachment) Thalassemia ALLERGIES: Allergies Allergen Reactions Latex Rash VITALS: Visit Vitals Smoking Status Former PHYSICAL EXAM: Ortho Exam RIGHT KNEE ROM 20-95 Crepitus IMAGING: October 30, 2023 x-rays from the [place] office AP weight-bearing bilateral knees lateral and sunrise of the right knee demonstrate joint space narrowing in all 3 compartments with marginal osteophytes subchondral sclerosis. Medial compartment collapse of the focx-by-fdet. Large osteophytes in the superior inferior poles [...] Dr. Flores/david Flores D.O. documented in this encounterSaint John's Saint Francis [id number] History of Present illness Narrative* Syl Villalba, PROGRAM COORDINATOR - 03/31/2024 8:30 AM EDTAssociated Order(s): L [...] the past 1 month. documented in this encounterSaint John's Saint Francis [id number] Evaluation note* Diagnosis Onset Date Resolution Status Admit Date Chronic venous insufficiency acuteAugust 2023 10:00amDVT (deep venous thrombosis)resolvedAugust 2023 10:00amLeft leg swellingnoneactiveAugust 2023 10:00amChronic venous insufficiencyacuteJune 17, 2024 9:33amH/O deep venous thrombosisacute June 17, 2024 9:33amMedicare annual wellness visit, subsequentacute June 17, 2024 9:33amNicotine dependence, cigarettes, in remissionacute June 17, 2024 9:33amScreening mammogram for breast canceracuteJune 17, 2024 9:33am [facility] Work Phone: 1(147) 416-498005-10-2024 History of Present illness Narrative* Rosmery Guillermo, SURVEY AND MAPPING TECHNICIAN-FREELANCE WRITER - 12/05/2023 12:00 PM EDT Images from [...] last colonoscopy was in 2017 at the [facility] with Dr. Jett. It revealed hemorrhoids, but [...] Colon polyp COPD (chronic obstructive pulmonary disease) ([facility]) Hearing loss bilateral hearing aids Visual impairment [...] Take by mouth daily., Disp: , Rfl: zvsje-9a-idj-epa-fish oil-D3 (VITAMIN-D + OMEGA-3) 350 mg-400 mg- [...] as needed., Disp: , Rfl: peg 3350-sod sulf,kdjy-jul-qqf 178.7-7.3-0.5 gram recon soln, Take 1 kit [...] patient/family/caregiver Referring and communicating with other health long term care pharmacist Rectal bleeding [K62.5] [facility]ONARDA OHARA [facility] [place] This note was created with the assistance of a speech recognition program. While intending to generate a timely document that accurately reflects the content of the visit, no guarantee can be provided that every grammatical or spelling mistake has been or will be identified or corrected. Thank you for your understanding. ELONARDA Ohara 12/05/23 7625 documented in [facility]Bar[facility] Hospital Discharge instructions Patient Education 05/07/2023 08:46:21 [...] include: ?8 oz (237 mL) of milk, upxrbti-cctpatdlpvrl-lqrax milk, and calcium- fortifiedfruit juice. Calcium-fortified means [...] ?Spinach (cooked), rhubarb, beets, sweet potatoes, and Rwandan chard. ?Peanuts. ?Potato chips, finnish fries, and baked potatoes with skin on. ?Nuts and nut products. ?Chocolate. If you regularly take a diuretic medicine, make sure to eat at least 1 or 2 servings of fruits or vegetables that are high in potassium each day. These include: ?Avocado. ?Banana. ?Narrows, prune, carrot, or tomato juice. ?Baked potato. [...] magnesium, fish oil, or vitamin B6. Take olno-smw-zzdioew and prescription medicines only as told by [...] Casseroles. Pizza. Lasagna. Frozen meals. Potato chips. Tajik fries. The items listed above may not [...] provider. Document Revised: 03/25/2022 Document Reviewed: 03/25/2022 [employer] Patient Education 2022 Med Access. Follow Up Care 05/01/2022 08:32:42 With:Lorne GONZALEZ, Ramila Pascal, URL, URO Address: When: Unknown Comments:Sched Lt Ureteroscopy/LaserLitho [facility] [employer] 09-26-2023 Evaluation note* Encounter Date Diagnosis Assessment Notes Treatment Notes Treatment Clinical Notes Mar, Acute left-sided low back pain w ithout sciatica (ICD-10 - M54.50) Push fluids ER or call office w/ recurrent flank pain or hematuria Mar,ross hematuria (ICD-10 - R31.0)Push fluids CT abd/pelvis to r/o renal tumor, renal stone, hydronephrosis f/u for hematuria evaluation [employer] Other 06-05-2023 Evaluation note* Encounter Date Diagnosis Assessment Notes Treatment Notes Treatment Clinical Notes Dec, Cervical spondylosis (ICD-10 - M 47.812) ROM exercises, ice/heat and rest. Begin NSAIDs and muscles relaxant at night. PT if no improvement. XR Dec,Torticollis (ICD-10 - M43.6)Heat/ice and NSAIDs/muscle relaxant. PT if no improvement Dec,ry mouth (ICD-10 - R68.2)Push water, lozenges [employer] Other 04-07-2023 Evaluation note* Encounter Date Diagnosis Assessment Notes Treatment Notes Treatment Clinical Notes Oct, Concussion without l oss of consciousness, initial encounter (ICD-10 - S06.0X0A) Ice and Tylenol. Rest Oct, ontusion of right hand, initial encounter (ICD-10 - S60.221A) Elevate and ice Oct, cute strain of neck muscle, initial encounter (ICD-10 - S16.1XXA) ROM exercises, heat and lidocaine Oct,ontusion of left knee, initial encounter (ICD-10 - S80.02XA)Ice, Tylenol and Motrin. ROM exercises, Voltaren Gel [employer] Other 10-05-2022 Hospital Discharge instructions Patient Education [...] 06/30/2013 Document Revised: 03/03/2019 Document Reviewed: 03/03/2019 [employer] Patient Education 2020 Med Access. 05/01/2022 08:20:59 Calorie Counting for Weight Loss [...] 07/14/2006 Document Revised: 04/02/2019 Document Reviewed: 06/13/2017 [employer] Patient Education 2020 [employer] Follow Up Care 12/12/2021 12:13:24 With:Lorne GONZALEZ, TEDDY Gonzalez, URO Address: When:Within 1 Year(s) [facility] 05-18-2022 Hospital Discharge instructions Patient [...] Follow these instructions at home: Medicines Take tkvo-cwv-pmpzfsq and prescription medicines only as told by [...] or the blood stops without treatment. Take mjts-yfj-bucnaov and prescription medicines only as told by your health care provider. Drink enough fluid to keep your urine clear or pale yellow. This information is not intended to replace advice given to you by your health care provider. Make sure you discuss any questions you have with your health care provider. Document Released: 07/14/2006 Document Revised: 12/08/2019 Document Reviewed: 08/16/2017 [employer] Patient Education 2020 Med Access. Follow Up Care 06/06/2021 10:30:38 With:Lorne GONZALEZ, TEDDY Gonzalez, URO Address: When:3 months [facility] [place] evaluation + Plan note Future Appointments Appointment Date:12/21/2021 07:30:00 AM Scheduled Provider: Location:.[place]ICAL [place] Appointment Type:PT Pelvic Floor/UI Eval (FT) Appointment Date:05/01/2022 08:00:00 AM Scheduled Provider:Ramila Pradhan MD Location:[facility] Appointment Type:URO Office Visit [facility] evaluation + Plan note Future Appointments Appointment Date:12/21/2021 07:30:00 AM Scheduled Provider: Location:.[place] Appointment Type:PT Pelvic Floor/UI Eval (FT) Appointment Date:05/01/2022 08:00:00 AM Scheduled Provider:Ramila Pradhan MD Location:[facility] Appointment Type:URO Office Visit Diagnostic Tests Pending * [facility]ments Appointment Date:02/06/2022 [...] Date:05/01/2022 08:00:00 AM Scheduled Provider:Ramila Pradhan MD Location:[facility] Appointment Type:URO Office Visit [facility] evaluation + Plan note Future Appointments Appointment Date:05/07/2023 08:00:00 AM Scheduled Provider:Ramila Pradhan MD Location:[facility] Appointment Type:URO Office Visit [facility] evaluation + Plan note Future Appointments Appointment Date:05/18/2025 08:00:00 AM Scheduled Provider:Ramila Pradhan MD Location:[facility] Appointment Type:URO Office Visit [facility] evaluation + Plan note Future Appointments Appointment Date:05/18/2025 08:00:00 AM Scheduled Provider:Ramila Pradhan MD Location:[facility] Appointment Type:URO Office Visit Diagnostic Tests Pending * Urine Culture 05/12/24 [facility] evaluation + Plan note Future Appointments Appointment Date:12/01/2024 07:30:00 AM Scheduled Provider: Location:[facility] Appointment Type:Surgery FT Appointment Date:05/18/2025 08:00:00 AM Scheduled Provider:Ramila Pradhan MD Location:[facility] Appointment Type:URO Office Visit Diagnostic Tests Pending * Urine Culture 11/18/24 [facility] evaluation + Plan note Future Appointments Appointment Date:05/11/2025 08:15:00 AM Scheduled Provider:Ramila Pradhan MD Location:[facility] Appointment Type:URO Office Visit [facility] Evaluation noteNo InformationNort [employer] Other evaluvzrip noteNo assessment information available [facility] Work Phone: evalucjqup note* Diagnosis Onset Date Resolution Status Rectal bleeding acuteTrapezius muscle strainnoneactiveNeck painnonctive [facility] Work Phone: evaluation note* Diagnosis Onset Date Resolution Status Chronic venous insufficiency acutePrimary osteoarthritis of both kneesacuteLeft leg swellingnoneactive [facility] Work Phone: Evaluation note* Diagnosis Onset Date Resolution Status Chronic venous insufficiency acutePrimary osteoarthritis of both kneesacuteLeft leg swellingnoneactiveChronic venous insufficiencyacuteDVT (deep venous thrombosis)acutePrimary osteoarthritis of both kneesacuteLeft leg swellingnoneactive [facility] Work Phone: Evaluation note* Diagnosis Arthritis of right knee- Primary [...] rectum and anus [facility] Diagnosis Rectal bleeding Hemorrhage of rectum and anus [facility]* Diagnosis 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, mild stage documented [facility] encounter [facility]* Diagnosis Glaucoma suspect of both eyes- Primary Unspecified preglaucoma [facility]* Diagnosis Pre-op testing Unspecified pre-operative examination documented in this encounter [facility]* Diagnosis Onset Date Resolution Status Admit Date Anemia acuteApril 2024 11:10amChronic venous insufficiencyacuteApril 2024 11:10amH/O deep venous thrombosisacuteApril 2024 11:10amPrimary osteoarthritis of left kneeacuteApril 2024 11:10amPreop exam for internal medicinenoneactiveApril 2024 11:10am [facility] Work Phone: Evaluation note* Diagnosis Primary osteoarthritis of left knee documented in this encounter [facility]* Diagnosis Status post total left knee replacement- Primary documented in this encounter [facility]* Diagnosis Epiretinal membrane (ERM) of left eye- Primary 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, mild stage Dry eyes, bilateral 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 edema Blepharitis of upper and lower eyelids of both eyes, unspecified type documented in this encounter [facility]* Diagnosis Status post total left knee replacement- Primary Chronic pain of right knee documented [facility]* Diagnosis Blepharitis of upper and lower eyelids of both eyes, unspecified type- Primary 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 edema (CMS-HCC) Dry eyes, bilateral Epiretinal membrane (ERM) of left eye 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, mild stage documented in this encounter [facility]* Diagnosis 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, mild stage- Primary Epiretinal membrane (ERM) of left eye Dry eyes, bilateral 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 edema ([facility]) Blepharitis of upper and lower eyelids of both eyes, unspecified type documented [facility]* Diagnosis Status post total left knee replacement- Primary Chronic pain of right knee documented [facility]* Diagnosis 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, mild stage- Primary documented in this encounter [facility] HealthcareHistory general Narrative - Reported* Type Description Date Medical History Arthritis of knee, left Medical HistoryUrinary incontinence, mixedMedical HistoryRectal bleedingMedical HistoryNicotine dependence, cigarettes, in remissionMedical HistoryAcute bronchitis due to other specified organismsMedical HistoryOsteopenia of lumbar spineMedical HistoryChronic venous insufficiencyMedical HistoryMicrocytic hypochromic anemiaMedical HistoryPostmenopausalSurgical HistoryEVLT OF RIGHT GSV 09/2022Surgical HistoryCATARACT EXTRACTION - BILATERALSurgical HistoryLASER SURGERYSurgical HistoryORAL SURGERYSurgical HistoryWRIST SURGERYSurgical History C- [id number],1975Surgical HistoryANKLE SURGERYSurgical HistoryCHOLECYSTECTOMY 2014Surgical HistoryCOLONOSCOPYHospitalization HistorySEE SURGICAL [employer] Other Hospital course Narrative No data available for this section [facility] Hospital Discharge instructions No data available for this section [facility] Dis[facility] instructionsAmbulatory Orders* Referral to General Surgery Location: None [facility] Work Phone: InstructionsNot on filedocumented in this encounter [facility] SystemInstructionsNot on filedocumented in this encounter [facility] SystemProgress note No data available for this section [facility] reason for visit Narrative* Consultation (Routine) - ClosedSpecialtyDiagnoses / ProceduresReferred By ContactReferred To Contact Physical Therapy Diagnoses Primary osteoarthritis of left knee Procedures ID OFFICE/OUTPATIENT NEW HIGH MDM 60 MINUTES Harley Arciniega, [address] [place] [address] Phone: tel: fax: Shawn Wagoner, PT [address] [facility] [address] [place] [address] Phone: tel: fax: Referral IDStatusReasonStart DateExpiration DateVisits RequestedVisits [id number] [facility] Services Required / [facility] Summary Purpose Family History No [...] Complaint Amb Documentation Amb Documentation back pain/bloody stoolReason for VisitRectal bleeding Trapezius muscle strain Neck pain Chief Complaint left leg swelling Reason for Visit Chronic venous insuf ficiency Primary osteoarthritis of both knees Left leg swelling Chief Complaint left leg swelling 2 week follow upReason for VisitChronic venous insufficiency Primary osteoarthritis of both knees Left leg [...] medicine October 272024 11:10am Reason for Referral SpecialtyDiagnoses / ProceduresReferred By ContactReferred To ContactOrthopaedic Surgery Diagnoses Arthritis of right knee Procedures L Inj/Asp: L knee Apling, Syl Germain, PROGRAM COORDINATOR [address] [place] [address] Referral IDStatusReasonStart DateExpiration DateVisits RequestedVisits [id number] Additional Source Comments Care Team (unrecognized sect [...] Care Provider Active Start: September 25, 2023 Dequan Jeronimo ProviderActiveStart: September 25, 2023 Team Status: Active Member Role Status Dates Alden Wheeler DO Primary Care Provider Active Start: September 30, 2023 Dequan Jeronimo ProviderActiveStart: September 30, 2023 Team Status: Active Member [...] Start: March 24, 2024 End: March 24, 2024Team MemberRelationshipSpecialtyStart DateEnd Date Alden Wheeler MD [address] [facility] [place] [phone] PCP - GeneralInternal Medicine12/18/22Team MemberRelationshipSpecialtyStart Date End Date Alden Wheeler MD [address] [facility] [place] [phone] PCP - GeneralInternal Medicine12/18/22Team MemberRelationshipSpecialtyStart Date End Date Alden Wheeler MD [address] [facility] [place] [address] PCP - GeneralInternal Medicine12/18/22Team MemberRelationshipSpecialtyStart Date End Date Alden Wheeler MD [address] [facility] [place] [address] PCP - GeneralInternal Medicine12/18/22 Team Status: Active Member Role Status Dates Alden Wheeler DO Primary Care Provide r, Attending Provider Active Start: June 09, 2024 Team Status: Inactive Member Role Status Dates Alden Wheeler DO Primary Care Provide r, Attending Provider Active Start: June 17, 2024 End: June 17, 2024Team MemberRelationshipSpecialtyStart DateEnd Date Alden Wheeler MD [address] [facility] [place] [address] PCP - GeneralInternal Medicine12/18/22am MemberRelationshipSpecialtyStart Date End Date Adlen Wheeler MD [address] [facility] [place] [address] PCP - GeneralInternal Medicine12/18/22am MemberRelationshipSpecialtyStart Date End Date Alden Wheeler MD [address] [facility] [place] [address] PCP - GeneralInternal Medicine12/18/22am MemberRelationshipSpecialtyStart Date End Date Alden Wheeler MD [address] [facility] [place] [phone] PCP - GeneralInternal Medicine12/18/22am MemberRelationshipSpecialtyStart Date End Date Alden Wheeler MD [address] [facility] [place] [address] PCP - GeneralInternal Medicine12/18/22am MemberRelationshipSpecialtyStart Date End Date Alden Wheeler MD [address] [facility] [place] [address] PCP - GeneralInternal Medicine12/18/22am MemberRelationshipSpecialtyStart Date End Date Alden Wheeler MD [address] [facility] [place] [address] PCP - GeneralInternal Medicine12/18/22Team MemberRelationshipSpecialtyStart Date End Date Alden Wheeler MD [address] [facility] [place] [address] PCP - GeneralInternal Medicine12/18/22Team MemberRelationshipSpecialtyStart Date End Date Alden Wheeler MD [address] [facility] [place] [address] PCP - GeneralInternal Medicine12/18/22Team MemberRelationshipSpecialtyStart Date End Date Alden Wheeler MD [address] [facility] [place] [address] PCP - GeneralInternal Medicine12/18/22am MemberRelationshipSpecialtyStart Date End Date Alden Wheeler MD [address] [facility] [place] [address] PCP - GeneralInternal Medicine12/18/22Team MemberRelationshipSpecialtyStart Date End Date Alden Wheeler MD [address] [facility] [place] [address] PCP - GeneralInternal Medicine12/18/22Team MemberRelationshipSpecialtyStart Date End Date Alden Wheeler MD [address] [facility] [place] [address] PCP - GeneralInternal Medicine12/18/22Team MemberRelationshipSpecialtyStart Date End Date Alden Wheeler DO [address] [place] [address] PCP - General02/10/17Team MemberRelationshipSpecialtyStart DateEnd Date Alden Wheeler DO [address] [facility], [place] [phone] PCP - General02/10/17Team MemberRelationshipSpecialtyStart DateEnd Date Alden Wheeler MD [address] [facility] [place] [address] PCP - GeneralInternal Medicine12/18/22Team MemberRelationshipSpecialtyStart Date End Date Alden Wheeler MD [address] [facility] [place] [address] PCP - GeneralInternal Medicine11/18/24Team MemberRelationshipSpecialtyStart Date End Date Alden Wheeler MD [address] [facility] [place] [address] PCP - GeneralInternal Medicine11/18/24Team MemberRelationshipSpecialtyStart Date End Date Alden Wheeler MD [address] [facility] [place] [address] PCP - GeneralInternal Medicine11/18/24 Team Status: Inactive Member Role Status Dates Alden Wheeler DO Primary Care Provide r, Attending Provider Active Start: November 23, 2024 End: November 23, 2024Team MemberRelationshipSpecialtyStart DateEnd Date Alden Wheeler DO [address] [facility] [place] [address] PCP - GeneralInternal Medicine11/18/24Team MemberRelationshipSpecialtyStart Date End Date Alden Wheeler DO [address] [facility] [place] [address] PCP - GeneralInternal Medicine11/18/24Team MemberRelationshipSpecialtyStart Date End Date Alden Wheeler, DO [address] [facility] [place] [address] PCP - GeneralInternal Medicine11/18/24Team MemberRelationshipSpecialtyStart Date End Date Alden Wheeler, DO [address] [facility] [place] [address] PCP - GeneralInternal Medicine11/18/24Team MemberRelationshipSpecialtyStart Date End Date Alden Wheeler, DO [address] [facility] [place] [address] PCP - GeneralInternal Medicine11/18/24Team MemberRelationshipSpecialtyStart Date End Date Alden Wheeler, DO [address] [facility] [place] [address] PCP - GeneralInternal Medicine11/18/24Team MemberRelationshipSpecialtyStart Date End Date Alden Wheeler, DO [address] [facility] [place] [address] PCP - GeneralInternal Medicine11/18/24Team MemberRelationshipSpecialtyStart Date End Date Alden Wheeler, DO [address] [facility] [place] [address] PCP - GeneralInternal Medicine11/18/24Team MemberRelationshipSpecialtyStart Date End Date Alden Wheeler, DO [address] [facility] [place] [address] PCP - GeneralInternal Medicine11/18/24Team MemberRelationshipSpecialtyStart Date End Date Alden Wheeler, DO [address] [facility] [place] [address] PCP - GeneralInternal Medicine11/18/24Team MemberRelationshipSpecialtyStart Date End Date Alden Wheeler, DO [address] [facility] [place] [address] PCP - GeneralInternal Medicine11/18/24Team MemberRelationshipSpecialtyStart Date End Date Alden Wheeler DO [address] [facility] [place] [address] PCP - GeneralInternal Medicine11/18/24Team MemberRelationshipSpecialtyStart Date End Date Alden Wheeler, DO PCP - GeneralInternal Medicine Alden Wheeler, DO [address] [facility] [place] [address] PCP - GeneralInternal Medicine11/18/24Te MemberRelationshipSpecialtyStart Date End Date Alden Wheeler, DO [address] [facility] [place] [address] PCP - GeneralInternal Medicine11/18/24 REASON FOR VISIT (unrecogniz ed section and content) ReasonCommentsPainReasonCommentsInjectionsReasonCommentsFollow-upReasonOnset ZpvuLyjxwazarsaskekhk12/06/2024ReasonCommentsMed Change RequestReasonOnset Date CommentsMed Wliqsi53/31/2025ReasonOnset DateCommentsMed Cuyldn5309/07/2024Reason CommentsRectal BleedingBlood in stool, last colon 02/12/1706-igsaqe-43 year recall, referred by Dr. MarcusCommentsMed RefillReasonCommentsPainReasonComments PainPost-opReasonCommentsEye ExamGlaucomaReasonCommentsPost-opReasonComments GlaucomaReasonCommentsPost-opL RA TKA 12/01/24ReasonOnset DateCommentsMed Refill 06/03/2025 INFORMATION SOURCE (unrecogn ized section and content) DATE CREATED AUTHOR 12/12/2022 [facility] DATE CREATED AUTHOR AUTHOR'S ORGANIZ ATION 12/07/2023 [facility] DATE CREATED AUTHOR AUTHOR'S ORGANIZ ATION 05/15/2024 [facility] DATE CREATED AUTHOR AUTHOR'S ORGANIZ ATION 05/16/2024 [facility] DATE CREATED AUTHOR AUTHOR'S ORGANIZ ATION 11/19/2024 [facility] DATE CREATED AUTHOR AUTHOR'S ORGANIZ ATION 12/03/2024 [facility] DATE CREATED AUTHOR AUTHOR'S ORGANIZ ATION 12/04/2024 [facility] DATE CREATED AUTHOR AUTHOR'S ORGANIZ ATION 12/06/2024 [facility] DATE CREATED AUTHOR AUTHOR'S ORGANIZ ATION 04/15/2025 [facility] DATE CREATED AUTHOR AUTHOR'S ORGANIZ ATION 06/02/2025 [facility] Goals (unrecognized section and content) [...] BE BASED ON THE PRIMARY CLINICAL RECORDS. [employer] [facility]. provides no warranty or guarantee of the accuracy or completeness of information in this document.
[2025-06-15 11:08] LABS: Age Gdln ACOG Testing Note (.); Pap IG (Image Guided) Note (.)
== END 2025-06-13 15:00 | disposition home or self-care (01) ==
LOC: LAB 14:59
PROVIDERS: Visit Provider Physician Assistant
DX: Z01.419 Encounter for gynecological examination (general) (routine) without abnormal findings (principal)
CPT/HCPCS: 88175

== ENCOUNTER 2025-07-01 07:54 | Outpatient (OUT) | payer MEDICARE, OTHER, SELFPAY ==
--- OUTSIDE RECORDS SUMMARY | 2025-07-01 08:00 | XMS_ITS | CCD ---
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 (9 sources)latanoprost; Translations: [latanoprost ophthalmic]Drug Allergy [facility]chUniversity [facility] (9 sources)meloxicam; Translations: [meloxicam]Drug AllergyBleLima City Hospital (15 sources)latanoprostDrug [id number] Healthcare Work Phone: (15 sources)meloxicamDrug [id number] Health Northeast Medications Current Medications MedicationDrug Class(es)DatesSig (Normalized)Sig (Original)acetaminophen 500 mg oral tablet (20 sources)Start: 58-07-6471ugcu 1 tablet by mouth every four hours acetaminophen 500 mg Tab 500 mg = 1 tab(s), Oral, q4hr, # 60 tab(s), Refills(s) 0, Pharmacy: [id number], 160, cm, 11/18/24 12:38:00 EDT, Height/Length Dosing, 94.9, kg, 11/18/24 12:38:00 EDT, Weight Dosing Start Date: 12/01/24 Status: Ordered Medication Dispense Status: Completed Quantity: 60.0 Unit: tab(s) Total Allowed Fills: 1 Fills Dispensed: 0Start: 95-08-9017zqex 500 mg by mouth twice dailyTylenol 500 mg, Oral, BID, Refills(s) 0 Start Date: 11/18/24 Status: Ordered Repeat number: 1Acetaminophen (TYLENOL ARTHRITIS PAIN PO) Active End: 89-46-3680sbkvpnltybezt (Tylenol Extra Strength) 500 MG tablet every 6 (six) hours. 06/01/2024 Discontinued (Therapy completed)Acetaminophen (TYLENOL ARTHRITIS PAIN PO) Tylenol Arthritis Pain Activeacetaminophen 325 mg / HYDROcodone bitartrate 5 mg oral tablet (2 sources)Opioid AgonistStart: 12-13-2024 End: 98-68-5609tyxo 1-2 tablets by mouth every four hoursHYDROcodone- acetaminophen ([place]) 5-325 MG tablet Indications: Primary osteoarthritis of both kneesTake 1-2 tablets by mouth every 4 (four) hours if needed (pain) for up to 7 days 40 tablet 12/13/2024 12/20/2024 Activeapixaban 5 mg oral tablet (20 sources)Factor Xa InhibitorStart: 03-10-2024 End: 43-97-9092bwbopvvx (Eliquis) 5 MG tablet Twice daily 03/10/2024 07/05/2024 Discontinued (Med list cleanup)Start: 03-10-2024 End: 78-43-7259umbt 2 tablets by mouth twice daily, then [...] sources)Platelet Aggregation Inhibitor, Nonsteroidal Anti-inflammatory Drug Start: 66-58-0379Ppasksc Low Dose 81 mg oral tablet Refills(s) 0 Start Date: 02/25/25 Status: Ordered Medication Dispense Status: Completed Total Allowed Fills: 1 Fills Dispensed: 0Start: 11-11-2023 End: 55-13-4799emzk 1 tablet by mouth once dailyAspirin 325 mg tablet,delayed release (DR/EC) Discontinued 325 MG PO Daily November 11, 2023 12:00amNb[facility] 2023 10:38amStart: 33-44-1571czrb 1 tablet by mouth once dailyaspirin 81 mg Oral EC Tab 81 mg = 1 tab(s), Oral, Daily, Refills(s) 0, Prophylaxis Start Date: 03/20/20 Status: OrderedStart: 52-89-6564uetu 1 tablet by mouth once daily aspirin 81 mg Oral EC Tab 81 mg = 1 tab(s), Oral, Daily, Refills(s) 0, Prophylaxis Start Date: 03/20/20 Status: OrderedStart: 89-78-4661FYSGDBT 81 MG chewable tablet if needed 06/11/2010 Activetake 1 tablet by mouth every twenty- four hoursAspirin 325 MG 1 tablet Orally Once a day Activebacillus coagulans [id number] unt / inulin 250 mg oral capsule (2 sources)Start: 83-23-3741dmhy 1 capsule by mouth once dailyProbiotic Formula (Bacillus Coagulans) oral capsule 1 cap(s), Oral, Daily, Refill(s) 0, ProphylaxisStart Date: 03/20/20 Status: Orderedbimatoprost 0.1 mg/ml ophthalmic solution (20 sources)Prostaglandin AnalogStart: 18-44-2060qzoe 0.01 dose into the eye(s) once dailyLumigan 0.01% ophthalmic solution OPTH, Daily, Refill(s) 0 Start Date: 11/18/24 Status: Ordered Medication Dispense Status: Completed Total Allowed Fills: 1 Fills Dispensed: 0Start: 61-39-4240Dgfmrzm 0.01% ophthalmic solution OPTH, Daily, Refill(s) 0 Start Date: 11/18/24 Status: Ordered Repeat number: 1 Start: 07-06-2024 End: 47-09-1098qlgj 1 drop(s) into the eye(s) at bedtimeLumigan 0.01 % ophthalmic solution Indications: 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, mild stage INSTILL 1 DROP INTO BOTH EYES AT BEDTIME 7.5 mL 3 10/26/2024 ActiveCalcium (20 sources)Phosphate Binder, Calciumcalcium 200 MG tablet Activecalcium 200 MG tablet Calcium ActiveCalcium Citrate / Vitamin D (5 sources)Start: 45-57-3588ghto 1 tablet by mouth once dailycalcium-vitamin D 1 tab, Oral, Daily, Refill(s) 0, Prophylaxis Start Date: 03/20/20 Status: Ordered cefdinir 300 mg oral capsule (1 source)Cephalosporin AntibacterialStart: 21-03-7541irar 1 capsule by mouth twice dailyCefdinir 300 mg capsule Active 300 MG PO Twice daily 10 November 23, 2024 12:00amcelecoxib 100 mg oral capsule (10 sources)Nonsteroidal Anti-inflammatory DrugStart: 41-84-2502jxzs 1 capsule by mouth in the morningcelecoxib (CeleBREX) 100 MG capsule Take 100 mg by mouth in the morning and 100 mg before bedtime. 12/01/2024 Activecholecalciferol 0.125 mg oral capsule (20 sources)Vitamin Dcholecalciferol (Vitamin D-3) 125 MCG (5000 UT) capsule Activedocusate sodium 100 mg oral capsule (20 sources)Start: 12-94-8136kcxk 1 capsule by mouth twice dailyColace 100 mg Cap 100 mg = 1 cap(s), Oral, BID, # 20 cap(s), Refills(s) 0, Constipation Start Date:03/20/20 Status: Ordered Quantity: 20.0 Unit: cap(s) Repeat number: 1 Docusate Sodium (DSS) 100 MG capsule 1 (one) time each day at the same time Activedorzolamide 20 mg/ml / timolol 5 mg/ml ophthalmic solution (20 sources)Carbonic Anhydrase Inhibitor, beta-Adrenergic BlockerStart: 63-14-2369yqvseqsxjzf-timolol Opth 2%-0.5% Becca OPTH, Daily, Refill(s) 0 Start Date: 11/18/24 Status: Ordered Medication Dispense Status: Completed Total Allowed Fills: 1 Fills Dispensed: 0Start: 11-02-2024 End: 43-50-7335esai 1 drop(s) into the eye(s) in the morningdorzolamide-timolol (Cosopt) 2-0.5 % ophthalmic solution Indications: Glaucoma suspect of both eyes Administer 1 drop into both eyes in the morning and 1 drop before bedtime. 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 60 each 4 09/07/2024 Activekrill oil 500 mg oral capsule (20 sources)Start: 50-73-1976tqba 1 capsule by mouth once dailyNatdayana's Bounty Red Krill Oil 500 mg oral capsule 1 cap, Oral, Daily, Refill(s) 0, Prophylaxis Start Date: 03/20/20 Status: OrderedKrill Oil 350 MG capsule ActiveKrill Oil 350 MG capsule as directed Orally ActiveKRILL/OM3/DHA/EPA/OM6/LIP/ASTX (KRILL OIL, OMEGA 3 AND 6, ORAL) (2 sources)KRILL/OM3/DHA/EPA/OM6/LIP/ASTX (KRILL OIL, OMEGA 3 AND 6, ORAL) Take by mouth daily. 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, mild stage Administer 1 drop into affected eye(s) at bedtime 5 each 3 06/03/2025 Active Start: 12-19-2023 End: 80-40-6352ozqx 1 drop(s) into the eye(s) at bedtimelatanoprost (Xalatan) 0.005 % ophthalmic solution Indications: Glaucoma of both eyes secondary to dr lacy, mild stage (CMS/HCC) Administer 1 drop into both eyes at bedtime 2.5 mL 6 07/06/2024 10/04/2024 ActivemethylPREDNISolone (15 sources)CorticosteroidStart: 34-80-9955wimzmlPLIKENQmhfee (Medrol Dospak) 4 MG tablets Indications: Arthritis of right knee Follow schedule on package instructions 21 tablet 07/05/2024 ActiveStart: 03-31-2024 End: 60-14-0890quyzvcZRQREUTnsvho acetate (DEPO-Medrol) injection 40 mgStart: 03-31-2024 End: 49-72-185144 mg, Intra-articular, Once PRN Procedure, Starting on Fri03/31/24 at 0905, For 1 dose24 hr mirabegron 50 mg extended release oral tablet (8 sources)beta3-Adrenergic AgonistStart: 06-01-2025 End: 13-10-9011fpgh 1 tablet by mouth once dailymirabegron 50 mg oral tablet, extended release 50 mg = 1 tab(s), Oral, Daily, X 30 day(s), # 30 tab(s), Refills(s) 11, Pharmacy: [facility]/pharmacy #[id number], 160, cm, 06/01/25 8:25:00 EST, Height/Length Dosing, 90.8, kg, 06/01/25 8:25:00 EST, Weight Dosing Start Date: 06/01/25 Stop Date: 05/27/26 Status: Ordered Medication Dispense Status: Completed Quantity: 30.0 Unit: tab(s) Total Allowed Fills: 12 FillsDispensed: 0 Start: 40-26-3416ibml 1 tablet by mouth once dailyMyrbetriq 25 MG 24 hr tablet Take 25 mg by mouth Daily 02/25/2025 ActiveMultiple Vitamin (MULTI VITAMIN DAILY PO) (20 sources)Multiple Vitamin (MULTI VITAMIN DAILY PO) ActiveMultiple Vitamin (MULTI VITAMIN DAILY PO) Multi Vitamin ActiveMULTIVIT-MINERALS/FERROUS FUM (MULTI VITAMIN ORAL) (2 sources)MULTIVIT-MINERALS/FERROUS FUM (MULTI VITAMIN ORAL) Take by mouth daily. ActiveNature's Bounty Red Krill Oil (4 sources)Start: 17-57-5954Tvdbfe's Bounty Red Krill Oil 350 mg, Oral Start Date: 06/06/21 Status: OrderedNature's Bounty Red Krill Oil 500 mg oral capsule (9 sources)Start: 52-05-0422kztf 1 capsule by mouth once dailyNature's Bounty Red Krill Oil 500 mg oral capsule 1 cap, Oral, Daily, Refill(s) 0, Prophylaxis Start Date: 03/20/20 Status: Ordered Medication Dispense Status: Completed Total Allowed Fills: 1 Fills Dispensed: 0Start: 79-76-3009rord 1 capsule by mouth once dailyNature's Bounty Red Krill Oil 500 mg oral capsule 1 cap, Oral, Daily, Refill(s) 0, Prophylaxis Start Date: 03/20/20 Status: Ordered Repeat number: 1 Start: 25-80-9017eauz 1 capsule by mouth once dailyNature's Bounty Red Krill Oil 500 mg oral capsule 1 cap, Oral, Daily, Refill(s) 0, Prophylaxis Start Date: 03/20/20 Status: Ffelsgfscmak-9e-yew-epa-fish oil-D3 (VITAMIN-D + OMEGA-3) 350 mg-400 mg- 1,000 unit capsule (2 sources)cfdbo-4g-ptr-epa-fish oil-D3 (VITAMIN-D + OMEGA-3) 350 mg-400 mg- 1,000 unit capsule Take by mouth daily. Activepeg 3350-sod sulf,yjbl-hke-dbk 178.7-7.3-0.5 gram recon soln (1 source)Start: 12-05-2023 End: 79-92-8228hvy 3350-sod sulf,bymf-ljn-ygr 178.7-7.3-0.5 gram recon soln Indications: Rectal bleeding [...] chloride 1.33 meq oral tablet (11 sources)Start: 26-53-4227tcbm 1 tablet by mouth once dailypotassium chloride 99 mg oral tablet 99 mg = 1 tab(s), Oral, Daily, # 100 tab(s), Refills(s) 0, Prophylaxis Start Date: 03/20/20 Status: Ordered Medication Dispense Status: Completed Quantity: 100.0 Unit: tab(s) Total Allowed Fills: 1 Fills Dispensed: 0 Start: 66-45-3718feww 1 tablet by mouth once dailypotassium chloride 99 mg oral tablet 99 mg = 1 tab(s), Oral, Daily, # 100 tab(s), Refills(s) 0, Prophylaxis Start Date: 03/20/20 Status: OrderedPotassium gluconate (2 sources)POTASSIUM GLUCONATE ORAL Take by mouth daily. ActiveprednisoLONE acetate 10 mg/ml ophthalmic suspension (20 sources)CorticosteroidStart: 85-40-4139rbkaisetNQGG Opth acetate 1% Susp 5 mL 1 drop(s), INSTILL 1 DROP INTO BOTH EYES 4 TIMES A DAY StartDate: 05/12/24 Status: Ordered Medication Dispense Status: Completed Total Allowed Fills: 1 Fills Dispensed: 0Start: 17-33-5380gkrarizuCXQB Opth acetate 1% Susp 5 mL INSTILL 1 DROP INTO BOTH EYES 4 TIMES A DAY Start Date: 05/12/24 Status: Ordered Start: 54-37-0067onykakjnQHEQ acetate (Pred-Forte) 1 % ophthalmic suspension 06/22/2023 ActiveStart: 83-90-5978crcw 1 drop(s) into the eye(s) four times dailyprednisoLONE acetate (Pred-Forte) 1 % ophthalmic suspension PUT 1 DROP IN LEFT EYE 4 TIMES A DAY 06/22/2023 ActiveStart: 94-98-5940warmtcgqWVDD acetate (PRED FORTE) 1 % ophthalmic suspension Administer 1 drop into the left eye in t he morning and 1 drop at noon and 1 drop in the evening and 1 drop before bedtime. 06/22/2023 ActiveProbiotic Formula (Bacillus Coagulans) oral capsule (2 sources)Start: 15-74-8416ntup 1 capsule by mouth once dailyProbiotic Formula (Bacillus Coagulans) oral capsule 1 cap(s), Oral, Daily, Refill(s) 0, ProphylaxisStart Date: 03/20/20 Status: OrderedSuzetrigine (Journavx) 50 MG tablet (7 sources)Start: 12-16-2024 End: 57-62-5022bwnn 1 tablet by mouth every twelve hoursSuzetrigine [...] 30 tablet 12/16/2024 12/30/2024 ActiveStart: 12-01-2024 End: 98-93-2413plik 1 tablet by mouth every twelve hoursSuzetrigine [...] (20 sources)Central alpha-2 Adrenergic AgonistStart: 12-30-2022 End: 14-98-9718fsROGxewoq (Zanaflex) 2 MG tablet 03/24/2024 Active End: 81-35-5965onNFLocwaw (Zanaflex) 2 MG capsule Take by mouth 06/01/2024 Discontinued (Therapy completed)Tylenol 8 HR Arthritis Pain (1 source)Start: 01-78-9157mngl 650 mg by mouth twice dailyTylenol 8 HR Arthritis Pain 650 mg, Oral, BID, Refills(s) 0 Start Date: 11/18/24 Status: Ordered Repeat number: 1Vibegron (Gemtesa) 75 MG tablet (9 sources)Start: 20-93-6638Xwajxnnx (Gemtesa) 75 MG tablet Take 75 mg by mouth 05/12/2024 Activevibegron 75 MG Oral Tablet [Gemtesa] (3 sources)Start: 79-33-6164nxsi 1 tablet by mouth once dailyGemtesa 75 mg oral tablet 75 mg = 1 tab(s), Oral, Daily, fill whichever med is more affordable, # 30 tab(s), Refills(s) 2, Pharmacy: [facility]/pharmacy #[id number], 160, cm, 02/25/25 15:17:00 EDT, Height/Length Dosing, 99.4, kg, 02/25/25 15:17:00 EDT, Weight Dosing Start Date: 02/25/25 Status: Ordered Quantity: 30.0 Unit: tab(s) Repeat number: 3 Indications: Mixed incontinence;Start: 23-27-7982jufu 1 tablet by mouth once dailyGemtesa 75 mg oral tablet 75 mg = 1 tab(s), Oral, Daily, # 30 tab(s), Refills(s) 11, Pharmacy: [facility], 162, cm, 05/12/24 10:24:00 EDT, Height/Length Dosing, 97, kg, 05/12/24 10:24:00 EDT, Weight Dosing Start Date: 05/12/24 Status: OrderedVitamin D3 (11 sources)Start: 81-11-8009Usmpgyy D3 125 mcg Start Date: 06/06/21 Status: Ordered Medication Dispense Status: Completed TotalAllowed Fills: 1 Fills Dispensed: 0Start: 88-38-8689Wmvdtif D3 125 mcg Start Date: 06/06/21 Status: Ordered Repeat number: 1Start: 03-76-2380Nqkbknb D3 125 mcg Start Date: 06/06/21 Status: OrderedWomens Pack oral tablet (11 sources)Start: 53-21-1393rrvb 1 tablet by mouth once dailyWomens Pack oral tablet 1 tab(s), Oral, Daily, Refill(s) 0, Prophylaxis Start Date: 03/20/20 Status:Ordered Medication Dispense Status: Completed Total Allowed Fills: 1 Fills Dispensed: 0Start: 49-11-2625gkzt 1 tablet by mouth once dailyWomens Pack oral tablet 1 tab(s), Oral, Daily, Refill(s) 0, Prophylaxis Start Date: 03/20/20 Status:Ordered Repeat number: 1Start: 66-95-5991qsam 1 tablet by mouth once dailyWomens Pack oral tablet 1 tab(s), Oral, Daily, Refill(s) 0, Prophylaxis Start Date: 03/20/20 Status:Ordered Completed/Discontinued Medications MedicationDrug Class(es)DatesSig (Normalized)Sig (Original)folic acid 0.4 mg oral tablet (1 source) End: 20-39-7948zllp 1 tablet by mouth once dailyfolic acid (FOLVITE) 400 MCG tablet Take 400 mcg by mouth daily. 12/05/2023 Discontinued (Patient Stopped On Own)gabapentin 300 mg oral capsule (13 sources)Anti-epileptic AgentStart: 12-06-2024 End: 27-40-1500jfav 1 capsule by mouth in the morning, [...] mg/ml prefilled syringe (16 sources)Start: 04-14-2025 End: 79-59-2278ldzgb-linked hyaluronate (Gel-One) injection 30 mgStart: 04-14-2025 End: mg, Intra-articular, Once PRN Procedure, Starting on Enriqueta 04/14/25 at 0846, For 1 doseStart: 06-15-2024 End: 50-82-9553Mdapvm Hyaluronate (Viscosup) injection 2 mLStart: 06-15-2024 End: 11-19-52677 mL, Intra-articular, Once PRN Procedure, Starting on Fri06/15/24 at 1214, For 1 doseStart: 06-08-2024 End: 80-79-8053Gmosho Hyaluronate (Viscosup) injection 2 mLStart: 06-08-2024 End: mL, Intra-articular, Once PRN Procedure, Starting on Fri06/08/24 at 1049, For 1 doseStart: 06-01-2024 End: 06-55-1509Ezrcbp Hyaluronate (Viscosup) injection 2 mLStart: 06-01-2024 End: mL, Intra-articular, Once PRN Procedure, Starting on Fri06/01/24 at 0948, For 1 doselevoFLOXacin 250 mg oral tablet (2 sources)Quinolone AntimicrobialStart: 04-06-2024 End: 10-34-9426tngq 1 tablet by mouth once dailyLevofloxacin 250 mg tablet Discontinued 250 MG PO Daily 11 29April 06, 2024 12:00am April 06, 2024 4:18pmmeloxicam 15 mg oral tablet (13 sources)Nonsteroidal Anti-inflammatory DrugStart: 11-11-2023 End: 28-97-3304gqhg 1 tablet by mouth once dailyMeloxicam 15 mg tablet Discontinued 15 MG PO Daily November 11, 2023 12:00am November 13, 2023 12:22pm Start: 08-18-2948tvntvyzfi 15 mg Tab Refills(s) 0 Start Date: 05/07/23 Status: OrderedpredniSONE 20 mg oral tablet (13 sources)Start: 11-13-2023 End: 17-79-5300Ieogddrcah 20 mg tablet Discontinued 20 MG PO As Directed 07 02November 13, 2023 12:00am June 17, 2024 10:38am 1 tab tid w/ food x 2 days, then bid w/ food x 2 days, then qd w/ food x 2 daystafluprost 0.015 mg/ml ophthalmic solution (3 sources)Prostaglandin AnalogStart: 07-06-2024 End: 67-77-2292Ufcmheehqy, PF, (Zioptan) 0.0015 % solution Indications: 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, mild stage (CMS/HCC) Administer 1 drop into affected eye(s) at bedtime 30 each 5 07/06/2024 07/06/2024 DiscontinuedStart: 73-74-3837Owzwbgietk, PF, (Zioptan) 0.0015 % solution Indications: 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, mild stage ([facility]/HCC) Administer 1 drop into affected eye(s) at bedtime 30 each 5 07/06/2024 Activetriamcinolone acetonide 32 mg injection (4 sources)CorticosteroidStart: 01-13-2025 End: 74-95-2674bdsmoyfbfbtqc acetonide (Zilretta) injection 32 mgStart: 01-13-2025 End: 35-24-026216 mg, Once PRN Procedure, Starting on Enriqueta 01/13/25 at 1143, For 1 doseVitamin D 1000 intl units Tab (4 sources)Start: 39-65-8232jfks 1 tablet by mouth once dailyVitamin D 1000 intl units Tab 1,000 International_Unit = 1 tab(s), Oral, Daily, # 30 tab(s), Refills(s) 0, Prophylaxis Start Date: 03/20/20 Status: Ordered Problems Active Problems Problem ClassificationProblemDateDocumented DateEpisodic/ChronicAcute bronchitis (8 sources)Acute bronchitis; Translations: [Acute bronchitis due to other specified organisms]EpisodicCalculus of urinary tract (16 sources)Kidney stone; Translations: [Ureteric stone]Onset: 05-12-2024 20-07-8455SdjqycduRzflcyemoe and other anemia (17 sources)Anemia; Translations: [Anemia, unspecified]36-50-0340Vxiyqtnt Deficiency and other anemia (8 sources)Microcytic hypochromic anemia; Translations: [Iron deficiency anemia, unspecified]EpisodicDeficiency and other anemia (1 source)Anemia, unspecified; Translations: [Anemia, unspecified]11-23-2024 EpisodicDiseases of mouth; excluding dental (1 source)Dry mouth, unspecifiedEpisodicGastrointestinal hemorrhage (16 sources)Rectal hemorrhage; Translations: [Hemorrhage of anus and rectum] Onset: 804041-67-1913UsjwfgmcNfnlaibrasslq symptoms and ill-defined conditions (20 sources)Mixed incontinence; Translations: [Incontinence]Onset: 12-12-2021 ChronicGenitourinary symptoms and ill-defined conditions (20 sources)Nocturia; Translations: [Nocturia]Onset: 33-25-7718ZvbcabtfXhtrdbdo (20 sources)Preglaucoma, unspecified, bilateral; Translations: [Preglaucoma, unspecified]Onset: 12-19-2023 Resolved: 493611-78-3673YznyswmHlhlnxclvmjq injury (1 source)Concussion without loss of consciousness, initial encounterEpisodic Osteoarthritis (20 sources)Arthritis; Translations: [Arthritis of left knee]Onset: 12-11-2022 37-10-0430VgxhhhcZnhxr bone disease and musculoskeletal deformities (8 sources)Other specified disorders of bone density and structure, other site; Translations: [Osteopenia of lumbar spine]EpisodicOther bone disease and musculoskeletal deformities (6 sources)Osteopenia; Translations: [Other specified disorders of bone density and structure, other site]17-20-1739NgjaffndUkqif connective tissue disease (6 sources)History of total knee arthroplasty; Translations: [Presence of left artificial knee joint]23-25-3367XpuijzpFjltq connective tissue disease (4 sources)Other specified soft tissue disorders; Translations: [Swelling of limb]25-40-9986TfiojxpnVpdpp diseases of bladder and urethra (1 source)Overactive bladderOnset: 57-37-9094RekgfyiCmocm diseases of bladder and urethra (1 source)Overactive dcvyjjq16-64-6118PvieavzBrkrd diseases of kidney and ureters (1 source)Urinary tract obstruction; Translations: [Hydronephrosis with renal and ureteral calculous obstruction]Onset: 52-33-5139VfhkiocaVvdls diseases of kidney and ureters (2 sources)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; Translations: [Cyst of kidney, acquired]Onset: 07-69-1584GfrkabydSxnym diseases of kidney and ureters (6 sources)Acquired renal cystic nxujkpt27-24-6632CphxggalYvwbe diseases of kidney and ureters (1 source)Cyst of kidney, acquiredOnset: 51-39-5558SfvurmbaZhbof diseases of veins and lymphatics (14 sources)Peripheral venous insufficiency; Translations: [Venous insufficiency (chronic) (peripheral)]01-04-8223VvwqfkppAtsqk diseases of veins and lymphatics (6 sources)Venous insufficiency (chronic) (peripheral); Translations: [Venous (peripheral) insufficiency, unspecified]20-37-7195FjzzbywxPmbhh non-traumatic joint disorders (6 sources)Arthritis of right imeo25-18-5069LjbujkfSxesz non-traumatic joint disorders (12 sources)Pain in right knee; Translations: [Pain in joint, lower leg] 00-53-4241IvyacuniGhuwk nutritional; endocrine; and metabolic disorders (1 source)Obese class II; Translations: [Body mass index (BMI) 36.0-36.9, adult] Onset: 36-07-3836IovuvdqYookp nutritional; endocrine; and metabolic disorders (8 sources)Body mass index 30+ - aszuvpj92-75-8836PdxodbrWitpk screening for suspected conditions (not mental disorders or infectious disease) (7 sources)Encounter for screening mammogram for malignant neoplasm of breast; Translations: [Patient encounter status]Onset: 95-35-5650JywsfdvhNutukcylz; thrombophlebitis and thromboembolism (17 sources)Phlebitis and thrombophlebitis of superficial vessels of right lower extremity; Translations: [Phlebitis and thrombophlebitis of superficial vessels of left lower extremity]Onset: 75-16-1044ItktafyaYjrnzoo on above:DVT left Gastrocnemius Vein - esidual codes; unclassified (8 sources)Postmenopausal state; Translations: [Asymptomatic menopausal state] EpisodicRetinal detachments; defects; vascular occlusion; and retinopathy (20 sources)Branch retinal vein occlusion with macular edema; Translations: [Tributary (branch) retinal vein occlusion, right eye, with macular edema]Onset: 821453-53-2958OztpiuyAgpptwbrw and history of mental health and substance abuse codes (11 sources)Py-dcydwq07-11afygow41-01-1373HfpykthnYzrktmbeyoh; intervertebral disc disorders; other back problems (13 [...] sources)Tobacco user; Translations: [Nicotine dependence, cigarettes, in remission]82-32-4486QtrxtgkLrfwifestuy injury; contusion (2 sources)Contusion of right hand, initial encounter; Translations: [Contusion of left knee, initial encounter]EpisodicUnclassified (11 sources)Asymptomatic microscopic nyrwyrrbg57-77-0420Xdmlwjyknucd (6 sources)Obstructive mrtqsquukclysu76-46-6735Iqzflleoukpa (4 sources)Chronic pain of right rfcf28-76-6561Gtzcugxt veins of lower extremity (4 sources)Varicose veins of bilateral lower extremities with pain; Translations: [VARICOSE VNS TITA LOW EXTREMW/PAIN]Onset: 93-65-5511Cpkemtgm Past or Other Problems Problem ClassificationProblemDateDocumented DateEpisodic/ChronicFracture of lower limb (20 sources)Closed trimalleolar fracture; Translations: [Displaced trimalleolar fracture of right lower leg, initial encounter for closed fracture]Onset: 812482-97-2790NocczjhvTughrqmuzogo; infection of eye (except that caused by tuberculosis or sexually transmitteddisease) (20 sources)Blepharitis of upper and lower eyelids of bilateral eyes; Translations: [Unspecified blepharitis right eye, upper and lower eyelids]Onset: 039343-81-8951PkbexzozGvoyt eye disorders (20 sources)Dry eyes; Translations: [Dry eye syndrome of bilateral lacrimal glands]Onset: 995223-36-7487WpacjraaYfddjicq codes; unclassified (1 source)Family history of malignant neoplasm of breast; Translations: [FAMILY HX MALIG NEOPLASM OF BREAST]Onset: 93-28-6179GynbldbhFrrmfgkl codes; unclassified (1 source)Family history of malignant neoplasm of trachea, bronchus and lung; Translations: [FAM HX MALIG NEOPLSM TRACH BRON LNG]Onset: 01-39-9392Svpqrfox Unclassified (1 source)Acute left-sided low back pain without sciatica M54.50 Results Test NameValueInterpretationReference RangeFacilityAmbulatory Visit Summaryon 86-57-0579Jjrqiidzdz Visit SummaryAmbulatory Visit Summary DONNA ESTRELLA :1950 [...] GONZALEZ, Ramila Pascal Where: [facility] [address] [place] [address]- You Need to Schedule the Following Appointments Follow Up with Lorne GONZALEZ, Ramila Pascal, URL, [facility] When: Where: Medications What How Much When Why Instructions Changed mirabegron (mirabegron 50 mg oral tablet, extended release) 1 Tablets By Mouth Every day Duration: 30 Days Pickup at [facility]/pharmacy #[id number] Unchanged acetaminophen (acetaminophen 500 mg Tab) [...] physician if questions or concerns Pharmacy Information [facility]/pharmacy #[id number]: [address], [place] [id number] [phone] What How Much When Why Comments Stop [...] A botulinum toxin bladd (more content not included)...[facility] 10-88-1673XxiaexfzoEyekzfbqd From: Kathy Gutierrez To: EU - Recalls Lue; Sent: 06/01/2025 10:30:23 EST Show up: 05/01/2026 11:30:00 EDT Subject: sched JAK Due Date/Time: 06/01/2026 10:30:00 EST Reminder Message Please Remember to: Please call pt to schedule JAK for 1 yr appt. She also needs kUB. Both orders in 06/01/25 encounter. Thanks![facility] Urology Office/Clinic Noteon 83-91-5726Zgfwjtk Office/Clinic NoteUrology Office/Clinic Note Chief Complaint 1 [...] and new medication f/u. Pt yao in [place], returns in September. 1. Kidney stones (N20.0: [...] 90 oz fluid daily (add 1/4 cup lemon/pit river daily) -Diet mods (more fruits/veg, limit animal [...] med since she will be wintering in [place] and is leaving soon. Does like Gatorade or flavored water like propel. Recommended adding water todilute bladder irritants and prevent dehydration. -Increase mirabegron qd to 50 mg. SEs discussed. Sent to [facility]. Discussed compliance to truly evaluate medication benefit -Consider botox 100U when pt returns from [place] -Limit/avoid bladder irritants -Pt to call if [...] moderate bacteria, and (more content not included)...NormalFisher Saratoga Medical CenterComment on above:Result Comment: Electronically Signed By: Lorne GONZALEZ, Ramila Pascal\.br\Date and Time Signed: 06/01/25 09:15EST\.br\Electronically Co-Signed By: Kathy Gutierrez\.br\Date and Time Co-Signed: 06/01/25 08:56 EST\.br\Electronically Co-Signed By: Kathy Gutierrez\.br\Date and Time Co-Signed: 06/01/25 08:57 ESTNo Panel Informationon 84-77-4338Jdlwptb Kaufman, ARRT 04/14/2025 7:41 PM L Inj/Asp: R knee on 04/14/2025 8:46 AM Indications: pain Details: 22 G needle, lateral approach Medications: 30 mg cross-linked hyaluronate 30 MG/3ML Consent was given by the patient. [facility] Knee - left 3 Viewson 70-20-8301Bmmdfqf Result: Three views, bilateral PA weight-bearing/sunrise/lateral left knee, taken today and saved to the permanent medical record are reviewed. Prosthesis is unchanged in position and alignment. No signs of prosthetic wear or loosening. No periprosthetic fractures. Complete loss medial joint space right knee, severe end stage arthritis. Severe PF arthritis.[facility] Health[facility]iology Study observation (narrative)[facility] HealthcareAmbulatory Visit Summaryon 94-57-0509Aumdmeptti Visit SummaryAmbulatory Visit Summary DONNA ESTRELLA Amy [...] GONZALEZ, Ramila Pascal Where: [facility] [place] [id number]- Medications What How Much When Instructions Unchanged [...] signed up for this yet, please contact [employer] at [phone] to get signed up today. Language Information Language assistance services are available as needed. [facility] Office/Clinic Noteon 48-84-3777Xcvatbd Office/Clinic NoteUrology Office/Clinic Note Chief Complaint uti [...] with voice recognition artificial intelligence software, specifically [employer], [employer] and or [employer]. Substitutions may have occurred due to the [...] affordable, # 30 tab(s), Refills(s) 2, Pharmacy: [facility]/pharmacy #[id number], 160, cm, 02/25/25 15:17:00 EDT, Height/Length Dosing, 99.4, kg, 02/25/25 15:17:00 EDT, Weight Dosing vibegron, 75 mg = 1 tab(s), Oral, Daily, fill whichever med is more affordable, # 30 tab(s), Refills(s) 2, Pharmacy: [facility]/pharmacy #[id number], 160, cm, 02/25/25 15:17:00 EDT, Height/Length Dosing, 99.4, kg, 02/25/25 15:17:00 EDT, Weight Dosing 2. Nocturia (R35.1: Nocturia) 2-3x/night see #1 3. Asymptomatic microscopic hematuria (R31.21: Asymptomatic microscopic hematuria) UAs: 03/30/23 [facility] - large blood, moderate bacteria, and trace leuks. (around time of stone episode) 04/15/23 [facility] - large blood and trace leuks. (around time of stone episode) 05/07/23 [facility] - neg blood and infection. JAK 05/07/24 [facility] - No renal mass, bladder wall thickening or mass noted. UA today w/ trace blood denies any gross hematuria since prior OV -cont to monitor Ordered: Urnls Dip Stick Auto w/o Microscopy POC 66836 4. Kidney stones (N20.0: Calculus of kidney) [...] Lorne GONZALEZ, Ramila Pascal, URL, [facility] [address], [place] [address] [address]- Additional Instructions: as scheduled apr 2025 Patient [...] Nature's Bounty Red Krill (more content not included)...[facility] CenterComment on above:Result Comment: Electronically Signed By: MEG Gaines APRN, Lauren Villalobos\.br\Date and Time Signed: 02/25/25 15:57 EDTXR Knee - left 3 Viewson 11-25-7737Fasjmza Result: Three views, bilateral PA weight-bearing/sunrise/lateral left knee, taken today and saved to the permanent medical record are reviewed. Prosthesis is unchanged in position and alignment. No signs of prosthetic wear or loosening. No periprosthetic fractures.[facility] Health[facility] Panel Informationon 40-32-6352Hxglohq Kaufman, ARRT 01/14/2025 4:09 PM L Inj/Asp: R knee on 01/13/2025 11:43 AM Indications: pain Details: 22 G needle, lateral approach Medications: 32 mg triamcinolone acetonide 32 MG Consent was given by the patient. [facility] Knee - left 3 Viewson 68-00-0943Ukkertxad Study observation (narrative)[facility] 3 Viewson 12-20-2024 Imaging Result: Three views, bilateral PA weight-bearing/sunrise/lateral left knee, taken today and saved to the permanent medical record are reviewed. Prosthesis is unchanged in position and alignment. No signs of prosthetic wear or loosening. No periprosthetic fractures.[facility] Knee - left 3 Viewson 92-77-3516Zzvvczewh Study observation (narrative)[facility] Surgical Pathology Reporton [id number] Pathology Report[address] [address]- Surgical Pathology Report Collected Date/Time: 12/01/2024 08:07 [...] tissue 2 - Bone after decalcification (DC) DC:[facility] Microscopic Description Microscopic examination performed unless gross only specified. Quality was accessed and acceptable. This report was transcribed using voice recognition technology and might contain unintended computerized motor carrier inspector errors.[facility] CenterComment on above:Performed By: #### [id number] #### [facility] [address] [place], [place] [address]Yhum. Reviewon 79-66-1478Refb ReviewAnemia with anisocytosis, target cells, occasional ovalocytes and mild polychromasia. Clinical correlation is indicated for etiology. WBC and platelets within normal limits.Invalid Interpretation [facility] CampusComment on above:Performed By: #### [id number] #### [facility] [address], [place] [address]BGHsj 91-02-3448Auxa nitrogen [Mass/Vol]17 mg/dLNormal5-21NOMS HealthcareComment on above:Performed By: #### [id number] #### [facility] [address], [place] [address]JKO w/ Auto Diffon 09-14-2017Rqivkxrfovol Ql (Bld)PRESENT Invalid Interpretation [facility] CampusComment on above:Performed By: #### [id number] #### [facility] [address], [place] [address]Jclufdscxg stippling LM Ql (Bld)PRESENTInvalid Interpretation [facility] CampusComment on above:Performed By: #### [id number] #### [facility] [address], [place] [address]Zrjmgrsxq/100 WBC (Bld)0.2 %Normal0.0-2.0[facility] HospitalComment on above:Performed By: #### [id number] #### [facility] [address] [place] [address]Favdceeap/Leukocytes Auto (Bld) [Pure # fraction]0.0 E9/LNormal 0.0-0.2FUniversity Hospitals Cleveland Medical CenterComment on above:Performed By: #### [id number] #### [facility] [address] [place] [address]Rrrsdaywxki (Bld) [#/Vol]0.0 E9/LNormal0.0-0.5FUniversity Hospitals Cleveland Medical CenterComment on above:Performed By: #### [id number] #### [facility] [address] [place] [address]Trjmhqevbpu/100 WBC (Bld)0.0 %Normal0.0-8.0[facility] HospitalComment on above:Performed By: #### [id number] #### [facility] [address] [place] [address]Zzaghckcaco distribution width (RBC) [Ratio]16.0 %High10.9-14.2 [facility] HospitalComment on above:Performed By: #### [id number] #### [facility] [address] [place] [address]Dsgymzbapu (Bld) [Volume fraction]32.1 %Low34.0-46.0[facility] HospitalComment on above:Performed By: #### [id number] #### [facility] [address] [place] [address]Tiepozogoz (Bld) [Mass/Vol]10.2 g/dLLow12.0-16.0[facility] HospitalComment on above:Performed By: #### [id number] #### [facility] [address] [place] [address]Zuwoceskggk (Bld) [#/Vol]0.9 E9/LLow1.0-4.0[facility] HospitalComment on above:Performed By: #### [id number] #### [facility] [address], [place] [address]Snxxamuwmuf/100 WBC (Bld)10.4 %Low14.0-50.0[facility] HospitalComment on above:Performed By: #### [id number] #### [facility] [address] [place] [address]SXL (RBC) [Entitic mass]20.5 pgLow27.0-34.0[facility] HospitalComment on above:Performed By: #### [id number] #### [facility] [address] [place] [address]FLDV (RBC) [Mass/Vol]31.8 g/wKQcpbfb92.4-36.0[facility] HospitalComment on above:Performed By: #### [id number] #### [facility] [address] [place] [address]ZUT (RBC) [Entitic vol]64.4 fLLow80.0-100.0[facility] HospitalComment on above:Performed By: #### [id number] #### [facility] [address] [place] [address]Bpwnvocxor Ql (Bld)PRESENTInvalid Interpretation CodeBethesda North HospitalComment on above:Performed By: #### [id number] #### [facility] [address] [place] [address]Oazplcbmz (Bld) [#/Vol]0.9 E9/LNormal0.2-1.0[facility] HospitalComment on above:Performed By: #### [id number] #### [facility] [address] [place] [address]Edtekzxwmst (Bld) [#/Vol]6.8 E9/LNormal2.0-7.5FUniversity Hospitals Cleveland Medical CenterComment on above:Performed By: #### [id number] #### [facility] [address] [place] [address]Pnijlqqruch/100 WBC (Bld)78.6 %High36.0-75.0[facility] HospitalComment on above:Performed By: #### [id number] #### [facility] [address] [place] [address]Ffnerfiden LM Ql (Bld)PRESENTInvalid Interpretation CodeBethesda North HospitalComment on above:Performed By: #### [id number] #### [facility] [address] [place] [address]Hqphhkpp mean volume (Bld) [Entitic vol]9.6 fLNormal6.4-10.8 [facility] HospitalComment on above:Performed By: #### [id number] #### [facility] [address] [place] [address]Yrmyshbyr (Bld) [#/Vol]187.0 E9/CJqrnhz632.0-500.0[facility] HospitalComment on above:Performed By: #### [id number] #### [facility] [address] [place] [address]Kkeisfoanpgqpe Auto Ql (Bld)PRESENTInvalid Interpretation Code [facility] HospitalComment on above:Performed By: #### [id number] #### [facility] [address] [place] [address]MKW (Bld) [#/Vol]5.0 E12/LNormal4.3-5.9[facility] HospitalComment on above:Performed By: #### [id number] #### [facility] [address] [place] [address]YUI size Nom (Bld)SEE MORPHOLOGYInvalid Interpretation Code [facility] HospitalComment on above:Performed By: #### [id number] #### [facility] [address] [place] [address]Bmhtsg cells LM Ql (Bld)PRESENTInvalid Interpretation Code [facility] HospitalComment on above:Performed By: #### [id number] #### [facility] [address], [place] [address]FNS corrected for nucl RBC Auto (Bld) [#/Vol]8.7 E9/LNormal 4.0-11.0[facility] HospitalComment on above:Performed By: #### [id number] #### Del [facility] [address], [place] [address]JHYATUJMLDqmmltp By: SYSTEM SYSTEM on 14-37-5714Drvks gap [Moles/Vol]8 mmol/LNormal6 - 16 mEq/LRemisol ChemChloride [Moles/Vol]109 mmol/L Nimhlb976 - 111 mmol/LRemisol ChemCO2 [Moles/Vol]27 mmol/HQjtrzv31 - 31 mmol/L Remisol ChemCreatinine [Mass/Vol]0.6 mg/dLNormal0.5 - 1.3 mg/dLRemisol ChemeGFR 93 mL/min/1.73 r1Cpkmfn>=59mL/min/1.73 g4Rpdhldl ChemPotassium [Moles/Vol]4.1 mmol/LNormal3.5 - 5.3 mmol/LRemisol ChemSodium [Moles/Vol]140 mmol/SSezibi545 - 145 mmol/LRemisol ChemUrea nitrogen [Mass/Vol]17 mg/dLNormal5 - 21 mg/dLRemisol ChemCreatinineon 83-64-8431Dzpmtpkcpi [Mass/Vol]0.6 mg/dLNormal0.5-1.3[facility] HealthcareComment on above:Performed By: #### [id number] #### [facility] [address], [place] [address]Nlmjlhonh Note-Nursingon 99-57-0436Fujuaxmqh Note-Nursing Discharge Note-Nursing DONNA ESTRELLA :1950 Visit [...] GONZALEZ, Ramila Pascal Where: [facility] [address] [place] [address] [place] [address]- New Follow Up Appointments after Discharge Follow Up with Harley Arciniega When: 12/16/2024 09:45 AM EDT Where: [place] [address]- Business (1) Follow Up with ALDEN WHEELER When: Comments: No need to see PCP at this time unless symptoms worsen. Where: [address] , [place] [address]- Business (1) The Following Equipment Has Been Ordered for You Home Equipment, Arranged - Walker The Following Services Have Been Arranged for You Prof Skilled Services, Arranged - Occupational Therapy, Physical Therapy Medications What How Much When Instructions Next Dose Changed acetaminophen (acetaminophen 500 mg Tab) 1 Tablets By Mouth Every 4 hours Pickup at [facility] 1pm.4pm and 8pm Unchanged bimatoprost ophthalmic [...] (tiZANidine 2 mg Tab) Resume Pharmacy Information [facility]: [address] [place], [place] [id number] [phone] What How Much When Comments Stop Taking [...] Kidney stones Mixed incontinence (more content not included)...[facility] EGFRon 51-41-7303KYP/1.73 sq M.predicted CKD-EPI (S/P/Bld) [Vol rate/Area]93- [facility] LYTESon 35-52-7918AEQG ANION GAP:SCNC:PT:SER/PLAS:QN:8[facility] HospitalHEMATOLOGYOrdered By: SYSTEM SYSTEM on 11-91-9010Aadhrinakbkz Ql (Bld) PRESENT *NA* (12/02/24 4:54 AM)Invalid [...] 27.0 - 34.0 pgRemisol HemeMCHC (RBC) [Mass/Vol]31.8 g/eUXdhobq34.4 - 36.0 gm/dL Remisol HemeMCV (RBC) [Entitic [...] - 10.8 fLRemisol HemePlatelets (Bld) [#/Vol] 187.0 E9/HFrpwfx037.0 - 500.0 E9/LRemisol HemePoikilocytosis Auto Ql (Bld) PRESENT *NA* (12/02/24 4:54 AM)Invalid Interpretation CodeRemisol HemeRBC (Bld) [#/Vol]5.0 E12/LNormal4.3 - 5.9 E12/LRemisol HemeRBC size Nom (Bld)SEE MORPHOLOGY *NA* (12/02/24 4:54 AM)Invalid Interpretation CodeRemisol HemeTarget cells LM Ql (Bld) PRESENT *NA* (12/02/24 4:54 AM)Invalid Interpretation CodeRemisol HemeWBC corrected for nucl RBC Auto (Bld) [#/Vol]8.7 E9/LNormal4.0 - 11.0 E9/LRemisol HemeInpatient Clinical Summaryon 22-05-3001Nbvhhyezy Clinical SummaryInpatient Clinical Summary [address] [address] Clinical Summary Person Information: Name: DONNA ESTRELLA Age: 74 Years : 1950 Sex: Female PCP: ALDEN WHEELER DO Marital Status: Race: White Ethnicity: Non- or Language: Yi Visit Id: Visit Reason: LEFT KNEE OA Speciality: Acuity: Enc Type: Outpatient in a Bed Med Service: Surgery Arrival: 12/01/2024 05:29:31 Discharge: Dispo Type: Address: [address] [place] [phone] Provider Notes: Patient: DONNA ESTRELLA Age: 74 [...] Daily, 0 Refill(s) omega-3 polyunsaturated fatty acids (Asuragen's Bounty Red Krill Oil 500 mg oral [...] Follow up: With: Address: When: ALDEN WHEELER [facility] [place] [address] Business (1) Comments: No need to see PCP at this time unless symptoms worsen. With: Address: When: Harley Arciniega [address] [place] [address] Business (1) 12/16/2024 9:45 AM Type Location Start Finish State [facility] Office Visit [facility] 05/18/2025 8:00 AM 05/18/2025 8:15 AM Confirmed Patient Education Information: Ignacio Arciniega - Total Knee Arthroplasty (Custom)[facility] Inpatient Patient Summaryon 08-04-1144Mpcqaejyx Patient SummaryInpatient Patient Summary [address] [address] Patient Discharge Instructions PERSON INFORMATION [...] With: Address: When: ALDEN WHEELER [address] [place] [address] Business (1) Comments: No need to see PCP at this time unless symptoms worsen. With: Address: When: Harley [place] [address] Business (1) 12/16/2024 9:45 AM In the event that this physician does not participate in your insurance network, please consult with your insurance company to find a nearby participating provider. Type Location Start Finish State [facility] Office Visit [facility] KATIE Fontaine 05/18/2025 8:00 AM 05/18/2025 8:15 AM Confirmed Comment: DELORES Abel SHIRLEY A, have received the attached patient education materials/instructions and have verbalized understanding: Patient Signature Date Clinican/Nurse Signature Date HERE ARE THE MEDICATION CHANGES THAT OCCURRED DURING YOUR HOSPITAL STAY Medications to Continue Taking That Have Changed [facility] [facility] [address], [address] [place] [id number], [phone] START: acetaminophen (acetaminophen 500 mg Tab) 1 [...] tizanidine (tiZANidine 2 mg Tab) Pharmacy Information: [facility] Minal Comment: PATIENT EDUCATION INFORMATION Instructions: [facility] (more content not included)...[facility] CenterInterdisciplinary Note - Case Manageron 81-90-4414Iicozzaxkrmyhwdet Note - Case ManagerInterdisciplinary Note - Hot Stick Man CM followed up with patient and at bedside. Plan is to DC home today with [facility]. Patient updated on program and has FWW in room. OT recs ADL kit and to get it at gift shop. Patient denies any additional needs at this time.[facility] CenterComment on above:Result Comment: Electronically Signed By: Sarah Espinal I\aiden\Date and Time Signed: 12/02/24 10:25 EDTLyteson 77-57-9560Kwnsuifd [Moles/Vol]109 mmol/NRjnlex294-690NYXU HealthcareComment on above:Performed By: #### [id number] #### [facility] [address] [place] [address]OQ9 [Moles/Vol]27 mmol/SYacfmm98-61XQYH HealthcareComment on above:Performed By: #### [id number] #### [facility] [address], [place] [address]Timdrtecj [Moles/Vol]4.1 mmol/LNormal3.5-5.3[facility] Comment on above:Performed By: #### [id number] #### [facility] [address] [place], [place] [address]Chqqgl [Moles/Vol]140 mmol/NHxxhcf231-716SWGF HealthcareComment on above:Performed By: #### [id number] #### [facility] [address] [place], [place] [address]Gmwpf gap [Moles/Vol]8 mmol/LNormal6-16FishUniversity of Maryland Medical Center Midtown CampusComment on above:Performed By: #### [id number] #### [facility] [address] [place], [place] [address]Uepo OR Intraoperative Recordon 85-02-1904Nqbh OR Intraoperative RecordMain OR Intraoperative Record IntraOp Document Type FT Summary Primary Physician: Harley Arciniega DO Finalized Date/Time: 12/02/24 12:14:09 Pt. Name: DONNA ESTRELLA/Sex: 1950 Female Med Rec #: [id number] Physician: Harley Arciniega DO Financial #: [id number] Pt. Type: O Room/Bed: [place] [address] Admit/Disch: 12/01/24 05:29:31 - 12/02/24 11:46:26 Institution: [...] Marta Arciniega DO, Alma Onofre Role Performed [employer] Surgeon - Primary Court Security Officer - Primary Time In 12/01/24 07:16:00 12/01/24 07:40:00 12/01/24 07:16:00 Time Out 12/01/24 09:35:00 12/01/24 09:15:00 12/01/24 09:25:00 Procedure KNEE TOTAL ROBOT KNEE TOTAL ROBOT KNEE TOTAL ROBOT ARTHROPLASTY(Left) ARTHROPLASTY(Left) ARTHROPLASTY(Left) Comments IS SUPERVISING Last Modified By: Alma Azar Kelsie E Burgderfer, Kelsie E 12/01/24 09:39:18 12/01/24 09:39:18 12/01/24 09:39:18 Entry 4 Entry 5 Entry 6 Case Attendee Mane WILLAMS, Rosmery Espinosa YEAST TENDER, Tim Luz RN Role Performed Scrub - Primary YEAST TENDER/SA Staff - Other Time In 12/01/24 07:16:00 [...] Performed Staff - Other Staff - Other Court Security Officer - Relief Time In 12/01/24 07:16:00 12/01/24 [...] Participants Harley Arciniega DO, Alma Azar, Mane BEST WORKER, Jesús Arvizu CST, Arsenio Martinez RN, Tim [...] Case Level Level 6 (more content not included)...NormalBethesda North HospitalNo Panel Informationon 09-96-9144Bvyqmerq Ordering Provider: DO Harley Manrique [facility] HealthcareeGFRon 90-67-9586eGDR24 mL/min/1.73 o2Rcgrqu>=59[facility] North HospitalComment on above:Performed By: #### [id number] #### [facility] [address] [place], [place] [address]XUH/Rhon 48-47-8214DQB/RhPositiveInvalid Interpretation Code [facility] HospitalComment on above:Performed By: #### [id number] #### [facility] [address] [place], [place] [address]LJE/Rh History Checkon 00-74-2588RJC/Rh History CheckVerified Hx Blood TypeNormBarney Children's Medical CenterComment on above:Performed By: #### [id number] #### [facility] [address] [place], [place] [address]MTJAku 75-42-7262DDXP Gel InterpNegativeNormalBethesda North HospitalComment on above:Performed By: #### [id number] ####[facility] [address] [place], [place] [address]GSDCZ BANKOrdered By: Petty Zaldivar on 07-65-6862KNS/Rh InterpPositiveInvalid Interpretation Code [facility] BB SubsectionABSC Gel InterpNegative (12/01/24 6:22 AM)NormalSOUTHWESTERN [facility] BB SubsectionBlood Bank ID#on [id number] Invalid Interpretation CodeBethesda North HospitalComment on above:Performed By: #### [id number] #### [facility] [address] [place], [place] [address]Hozjqgiez Clinical Summaryon 28-13-2250Yinillcns Clinical SummaryInpatient Clinical Summary [address] [address] Clinical Summary Person Information: Name: DONNA ESTRELLA Age: 74 Years : 1950 Sex: Female PCP: ALDEN WHEELER DO Marital Status: Race: White Ethnicity: Non- or Language: Yi Visit Id: Visit Reason: LEFT KNEE OA Speciality: Acuity: Enc Type: Outpatient in a Bed Med Service: Surgery Arrival: 12/01/2024 05:29:31 Discharge: Dispo Type: Address: [address] [place] [phone] Provider Notes: Diagnosis: Degenerative arthritis of left [...] Follow up: With: Address: When: [place] [address] [facility] () 12/16/2024 9:45 AM Type Location Start [facility] Office Visit [facility] 05/18/2025 8:00 AM 05/18/2025 8:15 AM Confirmed Patient Education Information: Ignacio Arciniega - Total Knee Arthroplasty (Custom)[facility] Inpatient Patient Summaryon 06-24-0172Nuvqfvzkz Patient SummaryInpatient Patient Summary [address] [address] Patient Discharge Instructions PERSON INFORMATION [...] Follow up: With: Address: When: [place] [address] [facility] () 12/16/2024 9:45 AM In the event that this physician does not participate in your insurance network, please consult with your insurance company to find a nearby participating provider. Type Location Start Finish [facility] Office Visit [facility] 05/18/2025 8:00 AM 05/18/2025 8:15 AM Confirmed Comment: DELORES Abel SHIRLEY A, have received the attached patient education materials/instructions and have verbalized understanding: Patient Signature Date Clinican/Nurse Signature Date HERE ARE THE MEDICATION CHANGES THAT OCCURRED DURING YOUR HOSPITAL STAY Medications to Continue Taking That Have Changed [facility], [address] [place], [place] [id number], [phone] START: acetaminophen (acetaminophen 500 mg Tab) 1 [...] RYLIE Fontaine Comment: PATIENT EDUCATION INFORMATION Instructions: [place] [place] [facility] DISCHARGE INSTRUCTIONS: TOTAL KNEE ARTHROPLASTY INCISION CARE: The bandage may be changed by your home Physical Therapist at 7 (more content not included)...[facility] In[facility] Patient Summary [address] [address] [facility] Clinical Discharge Instructions PERSON INFORMATION Name: DONNA ESTRELLA PHYSICIANS Admitting Physician: Harley Arciniega DO Attending Physician: Harley Arciniega DO PCP: ALDEN WHEELER DO Discharge Diagnosis: Degenerative arthritis of left knee Comment: PATIENT EDUCATION INFORMATION Instructions: Ignacio Arciniega - Total Knee Arthroplasty (Custom) Medication Leaflets: Follow up: With: Address: When: Harley Arciniega [address] [place] [address] [facility] (1) 12/16/2024 9:45 AM Type Location Start [facility] Office Visit [facility] KATIE [facility] 05/18/2025 8:00 AM 05/18/2025 8:15 AM Confirmed MEDICATION LIST New Medications [facility], [address] [place], [place] [id number], [phone] aspirin (aspirin 81 mg Oral EC Tab) [...] Medications to Continue Taking That Have Changed [facility] [address], [address] [place], [place] [id number], [phone] START: acetaminophen (acetaminophen 500 mg Tab) 1 [...] Capsules By Mouth 2 times a day. Comment:[facility] CenterInterdisciplinary Note - Case Manageron [id number] Note - Case ManagerInterdisciplinary Note - Hot Stick Man CM met with patient at bedside. Patient [...] Patient is set up with [facility] [place] for [place]. CM reviewed OBS status with patient and JOSHUA already signed. Patient denies any additional DC needs at this time. CM to follow.[facility] CenterComment on above:Result Comment: Electronically Signed By: Sarah Espinla\Date and Time Signed: 12/01/24 13:27 EDTInterdisciplinary Note - OTon 12-01-2024 Interdisciplinary Note - OTInterdisciplinary Note - OT Ot [facility] = services. Pt reports she will have family support from dtr and spouse when dcd to home and ortho 360 to follow up at home as well. OT serivces to follow 1-2 visits to instruct on adapted techniques for LE dressing and improve Ind w/ toilet transfers.[facility] Main OR Intraoperative Recordon [id number] OR Intraoperative RecordMain OR Intraoperative Record IntraOp Document Type FT Summary Primary Physician: Harley Arciniega DO Finalized Date/Time: 12/01/24 09:39:23 Pt. Name: DONNA ESTRELLA./Sex: 1950 Female Med Rec #: [id number] Physician: Harley Arciniega DO Financial #: [id number] Pt. Type: O Room/Bed: [place] [address] Admit/Disch: 12/01/24 05:29:31 - Institution: Case Times [...] E Role Performed JAY Surgeon - Primary Court Security Officer - Primary Time In 12/01/24 07:16:00 12/01/24 07:40:00 12/01/24 07:16:00 Time Out 12/01/24 09:35:00 12/01/24 09:15:00 12/01/24 09:25:00 Procedure KNEE TOTAL ROBOT KNEE TOTAL ROBOT KNEE TOTAL ROBOT ARTHROPLASTY(Left) ARTHROPLASTY(Left) ARTHROPLASTY(Left) Comments IS SUPERVISING Last Modified By: Alma Azar Kelsie E Burgderfer, Kelsie E 12/01/24 09:39:18 12/01/24 09:39:18 12/01/24 09:39:18 Entry 4 Entry 5 Entry 6 Case Attendee Mane WILLAMS, Rosmery Espinosa YEAST TENDER, Adriana Cesar RN, Tim Chávez Role Performed Scrub - Primary YEAST TENDER/SA Staff - Other Time In 12/01/24 07:16:00 12/01/24 07:16:00 12/01/24 07:16:00 Time Out 12/01/24 09:35:00 12/01/24 09:35:00 12/01/24 09:16:00 Procedure KNEE TOTAL ROBOT KNEE TOTAL ROBOT KNEE TOTAL ROBOT ARTHROPLASTY(Left) ARTHROPLASTY(Left) ARTHROPLASTY(Left) Comments 2ND SCRUB Last Modified By: lAma Azar Kelsie E Burgderfer, Kelsie E 12/01/24 09:39:18 12/01/24 09:39:18 12/01/24 09:39:18 Entry 7 Entry 8 Entry 9 Case Attendee Wesly ALMANZA, Ruthann Caldwell RN, CNOR, Carol Jarrell RN, Ruthann Felton Role Performed Staff - Other Staff - Other Court Security Officer - Relief Time In 12/01/24 07:16:00 12/01/24 [...] Participants Harley Arciniega DO, Alma Azar, Mane BEST WORKER, Rosmery Bedoya, Jesús QUIJANO, Arsenio Martinez RN, [...] ASSISTED Primary Procedure Yes Primary Surgeon Harley Arcniiega DO Start 12/01/24 07:51:00 Stop 12/01/24 09:31:00 Anesthesia Type MAC Surgical Service Orthopedics Wound Class 1 - Clean Last Modified By: Alma Azar 12/01/24 09:38:19 General Case Data FT Pre-Care Text: Classifies surgical wound, implements aseptic technique, initiates traffic control Entry 1 Case Information OR OR 5 FT Case Level Level 6 Wound Class 1 - Clean (more content not included)...[facility] CenterMain OR PACU I Recordon 13-12-6812Exnc OR PACU I RecordMain OR PACU I Record PACU Phase I Document Type FT Summary Primary Physician: Harley Arciniega DO Finalized Date/Time: 12/01/24 11:52:47 Pt. Name: QIANA ESTRELLAHUMA Guerra/Sex: 1950 Female Med Rec #: [id number] Physician: Harley Arciniega DO Financial #: [id number] Pt. Type: O Room/Bed: [place] [address] Admit/Disch: 12/01/24 05:29:31 - Institution: Case Times [...] Signatures Signed By: Chanelle Zhu I 12/01/24 11:52NoChillicothe VA Medical CenterMain OR Preoperative Recordon 90-06-2363Ixww OR Preoperative RecordMain OR Preoperative Record PreOp Document Type FT Summary Primary Physician: Harley Arciniega DO Finalized Date/Time: 12/01/24 07:54:35 Pt. Name: JOHNSONSavanahDONNA/Sex: 1950 Female Med Rec #: [id number] Physician: Harley Arciniega DO Financial #: [id number] Pt. Type: O Room/Bed: [place] [address] Admit/Disch: 12/01/24 05:29:31 - Institution: Case Times [...] Document Signatures Signed By: Alma Azar 12/01/24 07:54NoChillicothe VA Medical CenterOperative Reporton [id number] ReportOperative Report Patient: DONNA ESTRELLA Age: 74 years Sex: Female : 1950 Associated Diagnoses: None Author: Harley Arciniega DO DATE OF SURGERY: 12/01/2024 SURGEON: Harley Arciniega D.O. [employer] POLICE: Alberto Espinosa CFA PREOPERATIVE DIAGNOSIS: Advanced degenerative osteoarthrosis, left knee POSTOPERATIVE DIAGNOSIS: Advanced degenerative osteoarthrosis, left knee OPERATION: Left total knee arthroplasty utilizing [employer] robotic arm assistance ANESTHESIA: Spinal + regional block HEAVY MEDIA OPERATOR: Marta Peres CRNA and Adriana Boone MD [...] surgery was preplanned utilizing CT scan and [employer] software. This included the planned implant sizes [...] a padded reagan and secured in the Insightera knee positioner. Surgical time-out was performed with [...] guidance using the saw attached to the [employer] robotic arm. Femoral cuts were made including anterior, posterior, and chamfer cuts. The tibial cut was then made in the same fashion. The resected bone fragments were removed with osteotomes and freed from tissue with the bovie. Lamina spreader box operator was placed into the joint. Remaining meniscus and soft tissue were removed from the medial and lateral compartments. Posterior osteophytes removed from the condyles with an osteotome. Loose b (more content not included)...[facility] CenterComment on above:Result Comment: Electronically Signed By: Harley Arciniega DO\aiden\Date and Time Signed: 12/01/24 15:32 EDTOutpatient Surgery Discharge Instructionon 13-06-1958Zplcpmjisq Surgery Discharge InstructionOutpatient Surgery Discharge Instruction [address] [address] Patient Discharge Instructions PERSON INFORMATION [...] Follow up: With: Address: When: Harley Arciniega [address] [place] [address] Business (1) 12/16/2024 9:45 AM Type Location Start Finish [facility] Office Visit [facility] [place] 05/18/2025 8:00 AM 05/18/2025 8:15 AM Confirmed [...] to serve you. Thank you for choosing [facility] HERE ARE THE MEDICATION CHANGES THAT OCCURRED DURING YOUR HOSPITAL STAY New Medications [facility] [address], [address] [place], [place] [id number], [phone] aspirin (aspirin 81 mg Oral EC Tab) [...] Medications to Continue Taking That Have Changed [facility] [address], [address] [place], [place] [id number], [phone] START: acetaminophen (acetaminophen 500 mg Tab) 1 [...] times a day. PATIENT EDUCATION INFORMATION Instructions: [place] [facility] DISCHARGE INSTRUCTIONS: TOTAL KNEE [...] stomach upset, constipation, or (more content not included)...[facility] CenterProceduralon 33-95-2245Zslnbzdpwr Procedural Patient: DONNA ESTRELLA Age: 74 years [...] Complications: The patient tolerated the procedure as expected.[facility] CenterProceduralProcedural Patient: DONNA ESTRELLA Age: 74 years Sex: [...] list: All Problems Anemia / SNOMED CT 009382767 / Confirmed Arthritis / SNOMED CT 3761535 / Confirmed Asymptomatic microscopic hematuria / SNOMED CT 7162076611 / Confirmed BMI 36.0-36.9,adult / SNOMED CT 427104248 / Confirmed Former smoker / SNOMED CT 61850256 / Confirmed Kidney stones / SNOMED CT 269713698 / Confirmed Mixed incontinence / SNOMED CT 28677175 / Confirmed Nocturia / SNOMED CT 475397863 / Confirmed Renal cysts, acquired, bilateral / SNOMED CT 480237268 / Confirmed Ureteral stone / SNOMED CT 93143960 / Confirmed Ureteral stone with hydronephrosis / SNOMED CT 8964157432 / Confirmed, Active Problems (11) Anemia Arthritis [...] Cataract extraction and insertion of intraocular lens (5731743807) on 2020 at 70 Years. Cataract extraction and insertion of intraocular lens (3357405197) on 03/21/2020 at 69 Years. Cholecystectomy (60498831). Procedure on knee (741152754). Sclerotherapy of vein of lower limbs (9653415861). Comments: 11/18/2024 10:38 EDT - Adams ALMANZA, Keyonna Morocho 2022 Open r (more content not included)...[facility] CenterXR KNEE 1 OR 2 VIEWS LEFTon 12-01-2024 [...] Yung Alberts MD Transcribed by: RONY Technologist: BRAULIOSOUTHWESTERN REGIONAL [facility]ENTER – TULSARadiology, Radiologist, MD - 12/01/2024 Exam Date/Time: 12/01/2024 [...] 2 VIEWS LEFTOrdered By: Radiologist Radiology on 69-58-2034YFZE [employer] Work Phone: XR Knee 1 or 2 Views Lefton 22-69-7530VR Knee 1 or 2 Views LeftExam Date/Time: [...] Yung Alberts MD Transcribed by: RONY Technologist: [facility]aneW[facility] Urineon 93-74-7144Mdjmyawt identified Cx Nom (U)Microbiology PROCEDURE: Urine Culture [...] Locations R1: This test was performed at: [facility], [address] [place] [address], [address] , , UgspdyLwbbbhThe University of [facility] CenterComment on above:Performed By: #### [id number] #### [facility] [address] [place], [place] [address]UGE/Rh Retypeon 94-39-3176GTN/Rh Retype InterpPositiveInvalid Interpretation CodeBethesda North HospitalComment on above:Performed By: #### [id number] #### [facility] [address] [place], [place] [address]MHWXB BANKOrdered By: Claudia Palomo on 89-87-7871RGK/Rh Retype InterpPositiveInvalid Interpretation [facility] BB SubsectionBMPon 00-99-7801Ykysw gap [Moles/Vol]8 mmol/LNormal6-16[facility] HospitalComment on above: Performed By: #### [id number] #### [facility] [address] [place], [place] [address]Nzerbas [Mass/Vol]9.5 mg/dLNormal8.9-11.1FUniversity Hospitals Cleveland Medical CenterComment on above:Performed By: #### [id number] #### [facility] [address] [place], [place] [address]Jrcyrdel [Moles/Vol]107 mmol/DNpbxdc863-902WhznbhBethesda North HospitalComment on above:Performed By: #### [id number] #### [facility] [address] [place], [place] [address]AV1 [Moles/Vol]29 mmol/JSuusyu57-18WnetfxBethesda North Hospital Comment on above:Performed By: #### [id number] #### [facility] [address] [place], [place] [address]Rrahsrqubx [Mass/Vol]0.5 mg/dLNormal0.5-1.3Fisher [facility] HospitalComment on above:Performed By: #### [id number] #### [facility] [address] [place], [place] [address]Flmbulj [Mass/Vol]101 mg/wKPejfwe26-505CxggquBethesda North HospitalComment on above:Performed By: #### [id number] #### [facility] [address] [place], [place] [address]Hjohjxfgb [Moles/Vol]4.3 mmol/LNormal3.5-5.3FUniversity Hospitals Cleveland Medical CenterComment on above:Performed By: #### [id number] #### [facility] [address] [place] [address]Duqmmy [Moles/Vol]140 mmol/EJsxyjp132-745GtgnxuBethesda North HospitalComment on above:Performed By: #### [id number] #### [facility] [address] [place], [place] [address]Ymen nitrogen [Mass/Vol]26 mg/dLHigh5-21[facility] North HospitalComment on above:Performed By: #### [id number] #### [facility] [address] [place] [address]Tbdy nitrogen/Creatinine [Mass ratio]52 No IfvghMmru94-45KjevqtBethesda North HospitalComment on above:Performed By: #### [id number] #### [facility] [address] [place] [address]MRG w/ Auto Diffon 34-45-8484Gzuxwcklczkr Ql (Bld)PRESENT Invalid Interpretation CodeBethesda North HospitalComment on above:Performed By: #### [id number] #### [facility] [address] [place] [address]Ghovrvroz/100 WBC (Bld)0.7 %Normal0.0-2.0[facility] North HospitalComment on above:Performed By: #### [id number] #### [facility] [address] [place] [address]Rwijqjbpm/Leukocytes Auto (Bld) [Pure # fraction]0.0 E9/LNormal 0.0-0.2FUniversity Hospitals Cleveland Medical CenterComment on above:Performed By: #### [id number] #### [facility] [address] [place] [address]Xalpjwsfrrc (Bld) [#/Vol]0.2 E9/LNormal0.0-0.5FUniversity Hospitals Cleveland Medical CenterComment on above:Performed By: #### [id number] #### [facility] [address] [place], [place] [address]Caeemklmvfj/100 WBC (Bld)3.8 %Normal0.0-8.0[facility] North HospitalComment on above:Performed By: #### [id number] #### [facility] [address] [place] [address]Zjarosxpofz distribution width (RBC) [Ratio]16.0 %High10.9-14.2 [facility] North HospitalComment on above:Performed By: #### [id number] #### [facility] [address] [place] [address]Yuqntttheo (Bld) [Volume fraction]37.5 %Gxrkub73.0-46.0[facility] HospitalComment on above:Performed By: #### [id number] #### [facility] [address] [place] [address]Oyrlctjilk (Bld) [Mass/Vol]11.7 g/dLLow12.0-16.0[facility] HospitalComment on above:Performed By: #### [id number] #### [facility] [address] [place] [address]Rotikpaqzyw Auto Ql (Bld)PRESENTInvalid Interpretation Code [facility] HospitalComment on above:Performed By: #### [id number] #### [facility] [address] [place] [address]Sonqixjbsvi (Bld) [#/Vol]1.5 E9/LNormal1.0-4.0[facility] HospitalComment on above:Performed By: #### [id number] #### [facility] [address] [place] [address]Fjvfnssiful/100 WBC (Bld)30.0 %Wpgbfu40.0-50.0[facility] HospitalComment on above:Performed By: #### [id number] #### [facility] [address] [place] [address]VOU (RBC) [Entitic mass]20.5 pgLow27.0-34.0[facility] North HospitalComment on above:Performed By: #### [id number] #### [facility] [address] [place] [address]RDWT (RBC) [Mass/Vol]31.3 g/dLLow31.4-36.0[facility] HospitalComment on above:Performed By: #### [id number] #### [facility] [address] [place] [address]VUY (RBC) [Entitic vol]65.4 fLLow80.0-100.0[facility] North HospitalComment on above:Performed By: #### [id number] #### [facility] [address] [place] [address]Lkmogmulg (Bld) [#/Vol]0.5 E9/LNormal0.2-1.0[facility] HospitalComment on above:Performed By: #### [id number] #### [facility] [address] [place] [address]Jtljjxenxhv (Bld) [#/Vol]2.9 E9/LNormal2.0-7.5FUniversity Hospitals Cleveland Medical CenterComment on above:Performed By: #### [id number] #### [facility] [address] [place] [address]Urpybaupkrq/100 WBC (Bld)56.3 %Bvkrpe77.0-75.0[facility] HospitalComment on above:Performed By: #### [id number] #### [facility] [address] [place], [place] [address]Mipouphdvg LM Ql (Bld)PRESENTInvalid Interpretation CodeBethesda North HospitalComment on above:Performed By: #### [id number] #### [facility] [address] [place] [address]Loqjcapg396.0 E9/MEwbnjj477.0-500.0[facility] Comment on above:Performed By: #### [id number] #### [facility] [address] [place], [place] [address]Lemkeddz mean volume (Bld) [Entitic vol]9.1 fLNormal6.4-10.8 [facility] HospitalComment on above:Performed By: #### [id number] #### [facility] [address] [place], [place] [address]SPQ (Bld) [#/Vol]5.7 E12/LNormal4.3-5.9[facility] North HospitalComment on above:Performed By: #### [id number] #### [facility] [address] [place], [place] [address]YEC size Nom (Bld)SEE MORPHOLOGYInvalid Interpretation Code [facility] HospitalComment on above:Performed By: #### [id number] #### [facility] [address] [place] [address]DYB corrected for nucl RBC Auto (Bld) [#/Vol]5.1 E9/LNormal 4.0-11.0[facility] HospitalComment on above:Performed By: #### [id number] #### [facility] [address] [place], [place] [address]CXKDANKUCLctjbuo By: SYSTEM SYSTEM on 58-84-1975Odgji gap [Moles/Vol]8 mmol/LNormal6 - 16 mEq/LRemisol ChemCalcium [Mass/Vol]9.5 mg/dL Normal8.9 - 11.1 mg/dLRemisol ChemChloride [Moles/Vol]107 mmol/YKmlgxu621 - 111 mmol/LRemisol ChemCO2 [Moles/Vol]29 mmol/TDkxvbd68 - 31 mmol/LRemisol Chem Creatinine [Mass/Vol]0.5 mg/dLNormal0.5 - 1.3 mg/dLRemisol ZckxuEYV46 mL/min/1.73 f1Twirny>=59mL/min/1.73 m5Fldkyii ChemGlucose [Mass/Vol]101 mg/dL Gffcnk14 - 199 mg/dLRemisol ChemPotassium [Moles/Vol]4.3 mmol/LNormal3.5 - 5.3 mmol/LRemisol ChemSodium [Moles/Vol]140 mmol/ABwtidf300 - 145 mmol/LRemisol Chem Urea nitrogen [Mass/Vol]26 mg/dLHigh5 - 21 mg/dLRemisol ChemUrea nitrogen/Creatinine [Mass ratio]52 mg/vbSkxx21 - 20Remisol ChemCT LOWER EXTREMITY W/O CONTRAST [...] Alden Acuña MD Transcribed by: RONY Technologist: [facility], Radiologist, - 11/18/2024 Exam Date/Time: 11/18/2024 11:23 [...] Acuña MD Transcribed by: RONY Technologist: [facility] HealthcareRadiology Study observation (narrative)[facility] Mercy HospitalCT LOWER EXTREMITY W/O CONTRAST LEFTOrdered By: Radiologist Radiology on 67-28-8592XWTT [employer] Work Phone: ct Lower Extremity w/o Contrast Lefton 79-22-2227LR Lower Extremity w/o Contrast LeftExam Date/Time: 11/18/2024 [...] Alden Acuña MD Transcribed by: RONY Technologist: [facility] HospitalHEMATOLOGY Ordered By: SYSTEM SYSTEM on 05-15-2657Nwodhhefbocr Ql (Bld)PRESENT *NA* (11/18/24 11:05 AM)Invalid Interpretation CodeRemisol HemeBasophils/100 WBC (Bld) 0.7 %Normal0.0 - 2.0 %Remisol HemeBasophils/Leukocytes Auto (Bld) [Pure # fraction]0.0 E9/LNormal0.0 - 0.2 E9/LRemisol HemeEosinophils (Bld) [#/Vol]0.2 E9/LNormal0.0 - 0.5 E9/LRemisol HemeEosinophils/100 WBC (Bld)3.8 %Normal0.0 - 8.0 %Remisol HemeErythrocyte distribution width (RBC) [Ratio]16.0 %High10.9 - 14.2 %Remisol HemeHematocrit (Bld) [Volume fraction]37.5 %Tolxby13.0 - 46.0 % Remisol HemeHemoglobin (Bld) [Mass/Vol]11.7 g/dLLow12.0 - 16.0 gm/dLRemisol Heme Hypochromia Auto Ql (Bld)PRESENT *NA* (11/18/24 11:05 AM)Invalid Interpretation CodeRemisol HemeLymphocytes (Bld) [#/Vol]1.5 E9/LNormal1.0 - 4.0 E9/LRemisol HemeLymphocytes/100 WBC (Bld)30.0 % Capuop74.0 - 50.0 %Remisol HemeMCH (RBC) [Entitic mass]20.5 pgLow27.0 - 34.0 pg Remisol HemeMCHC (RBC) [Mass/Vol]31.3 g/dLLow31.4 - 36.0 gm/dLRemisol HemeMCV (RBC) [Entitic vol]65.4 fLLow80.0 - 100.0 fLRemisol HemeMonocytes (Bld) [#/Vol] 0.5 E9/LNormal0.2 - 1.0 E9/LRemisol HemeMonocytes/100 WBC (Bld)9.2 %Normal4.0 - 14.0 %Remisol HemeNeutrophils (Bld) [#/Vol]2.9 E9/LNormal2.0 - 7.5 E9/LRemisol HemeNeutrophils/100 WBC (Bld)56.3 %Bhwzkw10.0 - 75.0 %Remisol HemeOvalocytes LM Ql (Bld)PRESENT *NA* (11/18/24 11:05 AM)Invalid Interpretation CodeRemisol QrgaRoujxaam487.0 E9/L Kcwdln192.0 - 500.0 E9/LRemisol HemePlatelet mean volume (Bld) [Entitic vol]9.1 fLNormal6.4 - 10.8 fLRemisol HemeRBC (Bld) [#/Vol]5.7 E12/LNormal4.3 - 5.9 E12/L Remisol HemeRBC size Nom (Bld)SEE MORPHOLOGY *NA* (11/18/24 11:05 AM)Invalid Interpretation CodeRemisol HemeWBC corrected for nucl RBC Auto (Bld) [#/Vol]5.1 E9/LNormal4.0 - 11.0 E9/LRemisol HemeUA WITH CULT RFLX on 44-19-1520LFHTSNNA:PRTHR:PT:URINE:ORD:AUTOMATED1+AbnormalTrace /HPFChildren's Mercy HospitalBILIRUBIN:PRTHR:PT:URINE:ORD:TEST STRIP.AUTOMATEDNegativeNegative mg/dLChildren's Mercy HospitalEPITHELIAL CELLS.SQUAMOUS:NARIC:PT:URINE SED:QN:AUTOMATED COUNT3-4CD:[id number] Hospital CLARITY:TYPE:PT:URINE:NOM:ClearClear [facility] CLASS:TYPE:PT:URINE COLLECTION METHOD:NOM:*Clean CatchChristian Hospital COLOR:TYPE:PT:URINE:NOM:AUTOYellowYellowChildren's Mercy HospitalComment on above:Microscopic readings are only performed on those samples that meet specific criteria set forth by [facility] PH:LSCNC:PT:URINE:QN:TEST STRIP6.55.0 - 9.0[facility] SPECIFIC GRAVITY:RDEN:PT:URINE:QN:TEST STRIP1.0231.005 - 1.030NOMid [facility] GLUCOSE:PRTHR:PT:URINE:ORD:TEST STRIPNegativeNegative mg/dLNOAL Healthcare HEMOGLOBIN:MCNC:PT:URINE:SEMIQN:TEST STRIP.AUTOMATEDNegativeNegative mg/dLNOAL HealthcareInterpretation and review of laboratory resultsAbAspirus Ironwood Hospital KETONES:PRTHR:PT:URINE:ORD:TEST STRIP.AUTOMATEDNegativeNegative mg/dLNOAL HealthcareLEUKOCYTE ESTERASE:PRTHR:PT:URINE:ORD:TEST STRIP.DRULFXJCH865 Kamaljit/uL AbnormalNegative CD:[id number]'s Mercy HospitalLEUKOCYTES:NARIC:PT:URINE SED:QN:AUTOMATED COUNT6-15AbnoDepartment of Veterans Affairs [facility] MUCUS:PRTHR:PT:URINE:ORD:AUTOMATEDTraceNegative CD:[id number]'s Mercy Hospital NITRITE:PRTHR:PT:URINE:ORD:TEST STRIP.AUTOMATEDNegativeNegative mg/dLNOAL HealthcarePROTEIN:PRTHR:PT:URINE:ORD:TEST STRIPNegativeNegative mg/dLNOMid [facility] Mental Health CenterUROBILINOGEN:MCNC:PT:URINE:SEMIQN:TEST STRIPNegativeNegative mg/dLNOAL HealthcareOriginal Ordering Provider: DO Harley ArciniegaPottstown Hospital UA with Cult Rflxon 86-30-0858Jkooxlme Auto Ql (U)1+ /HPFAbnormalTraceBethesda North HospitalComment on above:Performed By: #### [id number] #### [facility] [address] [place], [place] [address]Bqqlewmml Ql (U)NegativeNormalNegKnox Community HospitalComment on above:Performed By: #### [id number] #### [facility] [address], [place] [address]Oubzzzu (U)ClearNormalClearBethesda North HospitalComment on above:Performed By: #### [id number] #### [facility] [address], [place] [address]Dsrxa (U)YellowNormalYellowBethesda North HospitalComment on above:Result Comment: Microscopic readings are only performed on those samples that meet specific criteria set forth by [facility].Performed By: #### [id number] #### [facility] [address], [place] [address]Kfdzttjlfp cells.squamous Auto (Urine sed) [#/Area]3-4Invalid Interpretation CodeBethesda North HospitalComment on above:Performed By: #### [id number] #### [facility] [address], [place] [address]Jydtxov Ql (U)NegativeNormalNegKnox Community Hospital Comment on above:Performed By: #### [id number] #### [facility] [address], [place] [address]Libcdrwtvo Auto test strip (U) [Mass/Vol]NegativeNormalNegative [facility] HospitalComment on above:Performed By: #### [id number] #### [facility] [address], [place] [address]Ukgzbtn Auto test strip Ql (U)NegativeNormalNegativeBethesda North HospitalComment on above:Performed By: #### [id number] #### [facility] [address], [place] [address]Xixnjxeyy esterase Auto test strip Ql (U)250 Kamaljit/uLAbnormal NegativeBethesda North HospitalComment on above:Performed By: #### [id number] #### [facility] [address], [place] [address]Lloot Auto Ql (U)TraceNormalNegKnox Community Hospital Comment on above:Performed By: #### [id number] #### [facility] [address], [place] [address]Msmsugb Auto test strip Ql (U)NegativeNormalNegativeBethesda North HospitalComment on above:Performed By: #### [id number] #### [facility] [address] [place] [address]209qZ (U)6.5 [pH]Invalid Interpretation Code5.0-9.0[facility] HospitalComment on above:Performed By: #### [id number] #### [facility]is [facility] [address] [place] [address]Syorjlk Ql (U)NegativeNormalNegativeBethesda North Hospital Comment on above:Performed By: #### [id number] #### [facility] [address] [place] [address]Iacyajun gravity (U) [Rel density]1.023Invalid Interpretation Code1.005-1.030[facility] HospitalComment on above:Performed By: #### [id number] #### [facility] [address] [place] [address]Vdjcrbhyyizi (U) [Mass/Vol]NegativeNormalNegativeBethesda North HospitalComment on above:Performed By: #### [id number] #### [facility] [address] [place] [address]CJB Auto (Urine sed) [#/Area]9-10Haotcsfd9-9QylwgyUniversity Hospitals Cleveland Medical CenterComment on above:Performed By: #### [id number] #### [facility] [address] [place] [address]Wwcm of Urine collection methodClean CatchNormalBethesda North HospitalComment on above:Performed By: #### [id number] #### [facility] [address] [place] [address]JYYLOYPXCXSmgvtya By: SYSTEM SYSTEM on 61-94-3504Osshbqjo Auto Ql (U)1+ /HPFInvalid Interpretation CodeTrace/HPFFT UA Auto SSBilirubin Ql (U) NegativeNormalNegativemg/dLFT UA Auto SSClarity (U)Clear (11/18/24 11:05 AM)NormalClearFTMC UA Auto SSColor (U)Yellow 1 (11/18/24 11:05 AM)NormalYellowSOUTHWESTERN [facility] UA Auto SSComment on above:Interpretive Data: Microscopic readings are only performed on those samples that meet specific criteria set forth by [facility].Epithelial cells.squamous Auto (Urine sed) [#/Area]3-4 graded/HPFInvalid Interpretation CodeSOUTHWEST[facility] UA Auto SSGlucose Ql (U)NegativeNormalNegativemg/dLSOUTHWESTERN REGIONAL [facility] [place] UA Auto SS Hemoglobin Auto test strip (U) [Mass/Vol]NegativeNormalNegativemg/dLSOUTHWESTERN REGIONAL [facility] [place] UA Auto SSKetones Auto test strip Ql (U)NegativeNormalNegativemg/dLSOUTHWESTERN REGIONAL [facility] [place] UA Auto SS Leukocyte esterase Auto test strip Ql (U)250 Kamaljit/uL Kamaljit/uLInvalid Interpretation CodeNegativeLeu/uLSOUTHWESTERN REGIONAL [facility] [place] UA Auto SSMucus Auto Ql (U)Trace graded/LPFNormal Negativegraded/LPFFTMC UA Auto SSNitrite Auto test strip Ql (U)NegativeNormal Negativemg/dLSOUTHWESTERN REGIONAL [facility] [place] UA Auto SSpH (U)6.5 *NA* (11/18/24 11:05 AM)Invalid Interpretation Code5.0 - 9.0[facility] UA Auto SSProtein Ql (U)NegativeNormalNegativemg/dLSOUTHWESTERN REGIONAL [facility] UA Auto SSSpecific gravity (U) [Rel density] 1.023 *NA* (11/18/24 11:05 AM)Invalid Interpretation Code1.005 - 1.030[facility] UA Auto SS Urobilinogen (U) [Mass/Vol]NegativeNormalNegativemg/dLSOUTHWESTERN REGIONAL [facility] [place] UA Auto SSWBC Auto (Urine sed) [#/Area]6-15 graded/HPFInvalid Interpretation Code0-5graded/HPFSOUTHWESTERN REGIONAL [facility] [place] UA Auto SSURINALYSISOrdered By: Keyonna Lamas on 08-18-1013WU Spec DescClean Catch (11/18/24 11:05 AM)NormalSOUTHWEST[facility] UA Auto SSeGFRon 23-69-2100oHXB36 mL/min/1.73 m2 Normal>=59Fisher [facility]aritan HospitalComment on above:Performed By: #### [id number] #### [facility] [address] [place] [address]Dr Panel Informationon 89-34-3074CzdbiAdriana Flores, 06/17/2024 8:42 AM L Inj/Asp: R knee on 06/15/2024 12:14 PM Indications: pain Details: 21 G needle, anterolateral approach Medications: 2 mL SynoJoynt 20 MG/2ML Outcome: tolerated well, no immediate complications Procedure, treatment alternatives, risks and benefits explained, specific risks discussed. Consent was given by the patient. [facility] 04-69-0052BptuyAdriana Flores, 06/08/2024 1:12 PM L Inj/Asp: R knee on 06/08/2024 10:49 AM Indications: pain Details: 21 G needle, anterolateral approach Medications: 2 mL SynoJoynt 20 MG/2ML Outcome: tolerated well, no immediate complications Procedure, treatment alternatives, risks and benefits explained, specific risks discussed. Consent was given by the patient. [facility] 87-65-0896Nlwsg A Sandra, DO 06/01/2024 12:36 PM L Inj/Asp: R knee on 06/01/2024 9:48 AM Indications: pain Details: 21 G needle, anterolateral approach Medications: 2 mL SynoJoynt 20 MG/2ML Outcome: tolerated well, no immediate complications Procedure, treatment alternatives, risks and benefits explained, specific risks discussed. Consent was given by the patient. [facility] Urineon 76-96-2736Xbbsugvc identified Cx Nom (U) Microbiology PROCEDURE: Urine [...] Locations R1: This test was performed at: [facility], [address] [place] [address], [id number] , , EqigfdGucfybChillicothe VA Medical CenterComment on above:Performed By: #### [id number] #### [facility] [address] [place] [address]QSYSQYYNAPYvslzwo By: SYSTEM SYSTEM on 16-09-9737Wzrrcigf Auto Ql (U)4+ /HPFInvalid Interpretation CodeTrace/HPFFT UA Auto SSBilirubin Ql (U) NegativeNormalNegativemg/dLFTMC UA Auto SSClarity (U)Ex.Turbid *ABN* (05/12/24 10:44 AM)Invalid Interpretation CodeClearFTMC UA Auto SSColor (U) Light-Salineno 1 *ABN* (05/12/24 10:44 AM)Invalid Interpretation CodeYellowFTMC UA Auto SSComment on above:Interpretive Data: Microscopic readings are only performed on those samples that meet specific criteria set forth by [facility].Crystals.amorphous Computer assisted Ql (U)Present graded/HPFInvalid Interpretation [...] Auto SSURINALYSIS Ordered By: Dilia Henriquez on 02-31-6394JQ Spec DescClean Catch (05/12/24 10:44 AM)NormalFTMC UA Auto SSUrinalysis with Microon 05-12-2024 Bacteria Auto Ql (U)4+ /HPFAbnormalTraceBethesda North HospitalComment on above:Performed By: #### [id number] #### [facility] [address], [place] [address]Kyppxohze Ql (U)NegativeNormalNegativeBethesda North HospitalComment on above:Performed By: #### [id number] #### [facility] [address], [place] [address]Fccmldj (U)Ex.TurbidAbnormalClearFisher [facility] Comment on above:Performed By: #### [id number] #### [facility] [address], [place] [address]Oozjl (U)Light-OrangeAbnoalYGrand Lake Joint Township District Memorial Hospital Comment on above:Result Comment: Microscopic readings are only performed on those samples that meet specific criteria set forth by [facility].Performed By: #### [id number] #### [facility] [address], [place] [address]Nhwuzjjj.amorphous Computer assisted Ql (U)PresentAbnormal [facility] HospitalComment on above:Performed By: #### [id number] #### [facility] [address], [place] [address]Sllwidk Ql (U)NegativeNormalNegKnox Community Hospital Comment on above:Performed By: #### [id number] #### [facility] [address], [place] [address]Zbxahmvjio Auto test strip (U) [Mass/Vol]1+ mg/dLAbnormal [facility] Wexner Medical CenterComment on above:Performed By: #### [id number] #### [facility] [address], [place] [address]Lfvftfi Auto test strip Ql (U)NegativeNormalNegKnox Community HospitalComment on above:Performed By: #### [id number] #### [facility] [address] [place] [address]Thpgkhetv esterase Auto test strip Ql (U)75 Kamaljit/uLAbnormal NegativeBethesda North HospitalComment on above:Performed By: #### [id number] #### [facility] [address] [place] [address]Wayrt Auto Ql (U)3+ CD:[id number] [facility] Medical CenterComment on above:Performed By: #### [id number] #### [facility] [address] [place] [address]Vsfcrkh Auto test strip Ql (U)NegativeNormalNegKnox Community HospitalComment on above:Performed By: #### [id number] #### [facility] [address] [place] [address]nY (U)5.5 [pH]Invalid Interpretation Code5.0-9.0[facility] HospitalComment on above:Performed By: #### [id number] #### [facility] [address] [place] [address]Qpncemv Ql (U)NegativeNormalOhio State University Wexner Medical Center Comment on above:Performed By: #### [id number] #### [facility] [address] [place] [address]Cxhtdysa gravity (U) [Rel density]1.023Invalid Interpretation Code1.005-1.030[facility] HospitalComment on above:Performed By: #### [id number] #### [facility] [address] [place] [address]Ymtirashgmtd (U) [Mass/Vol]NegativeNormalNegKnox Community HospitalComment on above:Performed By: #### [id number] #### [facility] [address] [place] [address]Kwjf of Urine collection methodClean CatchNormBarney Children's Medical CenterComment on above:Performed By: #### [id number] #### [facility] [address], [place] [address]Rdlspteui studyon 65-72-5737GFUIChildren's Mercy HospitalRadiology Study observation (narrative)[facility] Informationon 15-38-4267UhchaSyl Villalba NP 03/31/2024 9:06 AM L Inj/Asp: L knee on 03/31/2024 9:05 AM Indications: pain Details: 20 G needle, anterolateral approach Medications: 40 mg methylPREDNISolone acetate 40 MG/ML UTILIZING ASEPTIC TECHNIQUE PT GIVEN INJECTION IN LEFT KNEE, NEUROVASC INTACT S/P INJ, TOLERATED WELL Procedure, treatment alternatives, risks and benefits explained, specific risks discussed. Consent was given by the patient. [facility] TOMOSYNTHESIS SCREENING BIon 95-71-3834Hz[place], [place] [address] Mammography Report Signed Patient: DONNA ESTRELLA MR#: [id number] : 1950 Acct:[id number] Age/Sex: 73 / F ADM Date: 02/02/24 Loc: MAMMO Attending Dr: Jb Okeefe D.O. Ordering Physician: Jb Okeefe D.O. Results: Date of Service: 02/02/24 Follow Up: Procedure(s): MM tomosynthesis screening BI Accession Number(s): [id number] cc: Alden Wheeler D.O.; Jb Okeefe D.O. Patient Name: DONNA ESTRELLA MR#: [id number] : 1950 Exam Date: 02/02/2024 Ordering Doctor: [...] 62. LOCATION: [facility] BREAST COMPOSITION: There are scattered areas of [...] M.D. Signed By: 02/02/24908 DD/ 8 TD/TT: Packaging Materials Inspector:TBHRadiology, Radiologist, - 02/02/2024 [place] [address] Mammography Report Signed Patient: DONNA ESTRELLA MR#: [id number] : 1950 Acct:[id number] Age/Sex: 73 / F ADM Date: 02/02/24 Loc: MAMMO Attending Dr: Jb Okeefe D.O. Ordering Physician: Jb Okeefe D.O. Results: Date of Service: 02/02/24 Follow Up: Procedure(s): MM tomosynthesis screening BI Accession Number(s): [id number] cc: Alden Wheeler D.O.; Jb Okeefe D.O. Patient Name: DONNA ESTRELLA MR#: [id number] : 1950 Exam Date: 02/02/2024 Ordering Doctor: [...] 62. LOCATION: [facility] BREAST COMPOSITION: There are scattered areas of [...] M.D. Signed By: 02/02/24908 DD/ 8 TD/TT: Packaging Materials Inspector: [facility] Mercy HospitalRadiology Study observation (narrative)[facility] TOMOSYNTHESIS SCREENING BIOrdered By: Radiologist Radiology on 36-20-4574PDDS [employer] Work Phone: colonoscopyon 44-03-3618AtiJxjsujBellevue Hospital Basophils Auto (Bld) [#/Vol]on 60-97-9817Qbnqnosyl (Bld) [#/Vol]0.0 10 3/uL 0.0-0.1FMount Carmel Health SystemBasophils/100 WBC Auto (Bld)on 54-93-5230Oktldzmmh/100 WBC (Bld)0.5 %0.2-2.0[facility] Eosinophils/100 WBC Auto (Bld)on 99-74-8412Tomtzanhcsm/100 WBC (Bld)4.6 %0.9-7.0 [facility] SouthErythrocyte distribution width Auto (RBC) [Ratio]on 34-52-7319Mauhldqelzm distribution width (RBC) [Ratio]16.2 %11.0-15.0 [facility] SouthHematocrit Auto (Bld) [Volume fraction]on 19-17-4685Ecgpdrkkzn (Bld) [Volume fraction]38.0 %36.0-48.0[facility] SouthHemoglobin [Mass/volume] in Bloodon 69-12-1635Fqagakedir (Bld) [Mass/Vol]11.3 g/dL12.0-16.0[facility] SouthIron binding capacity [Mass/volume] in Serum or Plasmaon 69-77-0651Jril binding capacity [Mass/Vol]257.0 ug/dL250.0-450.0[facility] SouthIron saturation [Mass Fraction] in Serum or Plasmaon 39-41-8352Nnyb saturation [Mass fraction] 39.7 %[facility] SouthLaboratory - Chemistry and Chemistry - challengeon 10-63-6194Myukyzakh (Vitamin B12) [Mass/Vol]405.0 pg/mL193.0-986.0 [facility] SouthFerritin [Mass/Vol]345.0 ng/mL8.0-252.0 [facility] SouthIron [Mass/Vol]102.0 ug/dL50.0-170.0[facility] SouthLaboratory - Hematology and Cell countson 10-01-2023 Immature granulocytes/100 WBC (Bld)0.2 %0.0-0.5FMount Carmel Health System Leukocytes [#/volume] corrected for nucleated erythrocytes in Blood by Automated counon 66-69-4129ZKT corrected for nucl RBC Auto (Bld) [#/Vol]6.1 10 3/uL 4.0-11.0[facility] SouthLymphocytes Auto (Bld) [#/Vol]on 79-97-8838Xlgwjhwmpuk (Bld) [#/Vol]1.7 10 3/uL1.2-3.8[facility] SouthLymphocytes/100 WBC Auto (Bld)on 83-43-1882Ulyyavfukvf/100 WBC (Bld)27.9 % 20.5-60.0[facility] SouthMCH Auto (RBC) [Entitic mass]on 05-76-5339XWX (RBC) [Entitic mass]19.9 pg26.7-34.0[facility] SouthMCHC Auto (RBC) [Mass/Vol]on 62-79-5015AOBF (RBC) [Mass/Vol]29.7 g/dL 29.9-35.2FMount Carmel Health SystemMCV Auto (RBC) [Entitic vol]on 28-36-9669BIM (RBC) [Entitic vol]66.9 fL81.0-99.0[facility] SouthMonocytes Auto (Bld) [#/Vol]on 86-79-2060Shbcojmrb (Bld) [#/Vol]0.5 10 3/uL0.3-0.8[facility] SouthMonocytes/100 WBC Auto (Bld)on 27-20-6956Plzcbjxop/100 WBC (Bld)7.9 %1.7-12.0[facility] Neutrophils Auto (Bld) [#/Vol]on 63-77-0487Noasjixpver (Bld) [#/Vol]3.6 10 3/uL 1.4-6.5FMount Carmel Health SystemNeutrophils/100 WBC Auto (Bld)on 38-51-8593Zubyzysrmgs/100 WBC (Bld)58.9 %43.0-75.0[facility] SouthNo Panel Informationon 64-01-4576Xunmwookhdw # (Auto)0.3 10 3/uL0.0-0.7 [facility] SouthFolate28.20 ng/mL8.60-58.90[facility] SouthImmature Granulocyte # (Auto)0.01 10 3/uL0.00-0.03[facility] SouthPlatelets Auto (Bld) [#/Vol]on 88-43-5460Ehbfvnwfq (Bld) [#/Vol]232 10 3/fD997-149KjhbzhaqkSelect Medical Specialty Hospital - Columbus SouthRBC Auto (Bld) [#/Vol] on 32-19-3090SLO (Bld) [#/Vol]5.68 10 6/uL4.20-5.40[facility] SouthVC INJ FOAM SCLERO W US MLTIon 31-35-2090US INJ FOAM SCLERO W US MLTI Patient: DONNA ESTRELLA Exam Date: 12/05/2022 : 1950 Gender:F Ordering : DR REINA JOSEPH M.D. Admission #: [id number] Family : Order #: [id number] CLICK HERE TO VIEW EXAM RADIOLOGY REPORT [...] by: Harrison Gil M.D. on 12/05/2022 at 09:41[facility] HospitalVC CONSULT FOLLOWUPon 93-60-4721UB CONSULT FOLLOWUPPatient: DONNA ETSRELLA Exam Date: 11/28/2022 : 1950 Gender:F Ordering : DR REINA JOSEPH M.D. Admission #: [id number] Family : Order #: [id number] CLICK HERE TO VIEW EXAM RADIOLOGY REPORT [...] by: Reina Joseph MD on 11/28/2022 at 08:38[facility] HospitalVC EXT VENOUS RT LIMITEDon 99-88-5413UN EXT VENOUS RT LIMITEDPatient: DELORESDONNA Exam Date: 11/28/2022 : 1950 Gender:F Ordering : DR REINA JOSEPH M.D. Admission #: [id number] Family : Order #: [id number] CLICK HERE TO VIEW EXAM RADIOLOGY REPORT [...] by: Reina Joseph MD on 11/28/2022 at 08:17[facility] HospitalVC INJ FOAM SCLERO W US MLTIon 12-60-5876NH INJ FOAM SCLERO W US MLTIPatient: DONNA ESTRELLA Exam Date: 11/25/2022 : 1950 Gender:F Ordering : DR REINA JOSEPH M.D. Admission #: [id number] Family : Order #: [id number] CLICK HERE TO VIEW EXAM RADIOLOGY REPORT [...] by: Harrison Gil M.D. on 11/25/2022 at 12:03[facility] HospitalVC CONSULT FOLLOWUPon 71-03-5996IP CONSULT FOLLOWUPPatient: DONNA ESTRELLA Exam Date: 11/13/2022 : 1950 Gender:F Ordering : DR REINA JOSEPH M.D. Admission #: [id number] Family : Order #: [id number] CLICK HERE TO VIEW EXAM RADIOLOGY REPORT [...] by: Harrison Gil M.D. on 11/13/2022 at 09:54[facility] HospitalVC EXT VENOUS LT LIMITEDon 40-33-8298UJ EXT VENOUS LT LIMITEDPatient: DONNA ESTRELLA Exam Date: 11/13/2022 : 1950 Gender:F Ordering : DR REINA JOSEPH M.D. Admission #: [id number] Family : Order #: [id number] CLICK HERE TO VIEW EXAM RADIOLOGY REPORT [...] by: Harrison Gil M.D. on 11/13/2022 at 09:52[facility] HospitalVC ENDOVENOUS ABL 1ST V LTon 48-35-9002NM ENDOVENOUS ABL 1ST V LT Patient: DELORES DONNA ReyesRafia Exam Date: 11/06/2022 : 1950 Gender:F Ordering : DR REINA JOSEPH M.D. Admission #: [id number] Family : Order #: [id number] CLICK HERE TO VIEW EXAM RADIOLOGY REPORT PROCEDURE: VEIN CENTER ENDOVENOUS ABLATION FIRST VEIN LEFT COMPARISON: VC VENOUS REFLUX TITA LMT, 02/28/2022. INDICATIONS: Pain co-occurrent and due to varicose veins of bilateral legs I83.813 OPERATIVE REPORT: The risks and benefits of the procedure had been previously discussed, and were rediscussed at length. Informed written consent was obtained by ok and Efe Hoskins assisted. Time out procedure [...] by: Harrison Gil M.D. on 11/06/2022 at 14:02[facility] HospitalVC CONSULT FOLLOWUPon 04-77-3420QT CONSULT FOLLOWUPPatient: DONNA ESTRELLA. Exam Date: 10/23/2022 : 1950 Gender:F Ordering : DR REINA JOSEPH M.D. Admission #: [id number] Family : Order #: [id number] CLICK HERE TO VIEW EXAM RADIOLOGY REPORT [...] by: Reina Joseph MD on 10/23/2022 at 13:32[facility] HospitalVC EXT VENOUS RT LIMITEDon 77-22-9335CT EXT VENOUS RT LIMITEDPatient: DELORESQIANADONNA ARafia Exam Date: 10/23/2022 : 1950 Gender:F Ordering : DR REINA JOSEPH M.D. Admission #: [id number] Family : Order #: [id number] CLICK HERE TO VIEW EXAM RADIOLOGY REPORT [...] to thrombus *Exam performed in accordance with [facility] practice guidelines- Peripheral venous ultrasound, October 21, 2009. 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 Admission #: [id number] Family : Order #: [id number] CLICK HERE TO VIEW EXAM RADIOLOGY REPORT [...] by: Reina Joseph MD on 10/18/2022 at 10:20NormKettering [facility] Hospital AUTO DIFFon 84-53-6639LJPP #0.0 103/ulNormal0.0-0.1[facility] on above:Performed By: #### DATCBC ####[facility] [address] [place], [place] [address]Sm. Yilan ChangBasophils/100 WBC (Bld)0.7 %Normal 0.2-2.0The Minal HospitalComment on above:Performed By: #### DATCBC ####[facility] [address] [place], [place] [address]Dr. Yilan ChangEO #0.3 103/ulNormal0.0-0.7The [facility] HospitalComment on above: Performed By: #### DATCBC ####[facility] [address] [place], [place] [address]Dr. Yilan ChangEosinophils/100 WBC (Bld)6.1 %Normal 0.9-7.0The [facility] HospitalComment on above:Performed By: #### DATCBC ####[facility] [address] [place], [place] [address]Dr. Yilan ChangErythrocyte distribution width (RBC) [Ratio]16.3 %Critically high 11.0-15.0The White HospitalComment on above:Performed By: #### DATCBC ####[facility] [address] [place], [place] [address]Dr. Yilan ChangHematocrit (Bld) [Volume fraction]39.5 %Dxezjk79.0-48.0The [facility] HospitalComment on above:Performed By: #### DATCBC ####[facility] [address] [place], [place] [address]Dr. Yilan ChangHemoglobin (Bld) [Mass/Vol]12.2 g/yMUlnhdl65.0-16.0The [facility] HospitalComment on above: Performed By: #### DATCBC ####[facility] [address] [place], [place] [address]Dr. Yilan ChangIG #0.01 10e3/ulNormal0.00-0.03The [facility] HospitalComment on above:Performed By: #### DATCBC ####[facility] [address] [place], [place] [address]Dr. Yilan ChangIG % 0.2 %Normal0.0-0.5The [facility] HospitalComment on above:Performed By: #### DATCBC ####[facility] [address] [place] [address]Dr. Ольга DacostaLYMPH #1.9 103/ulNormal1.2-3.8The [facility] HospitalComment on above:Performed By: #### DATCBC ####[facility] [address] [place], [place] [address]Dr. Ольга DacostaLymphocytes/100 WBC (Bld)34.8 % Souczf92.5-60.0The [facility]rier HospitalComment on above:Performed By: #### DATCBC ####[facility] [address] [place], [place] [address]Dr. Ольга DacostaH (RBC) [Entitic mass]20.4 pgCritically low26.7-34.0The [facility] HospitalComment on above:Performed By: #### DATCBC ####[facility] [address] [place], [place] [address]Dr. Ольга DacostaHC (RBC) [Mass/Vol]30.9 g/xLGfldwx80.9-35.2The [facility] HospitalComment on above: Performed By: #### DATCBC ####[facility] [address] [place], [place] [address]Dr. Ольга DacostaV (RBC) [Entitic vol]66.2 fL Critically low81.0-99.0The [facility] HospitalComment on above:Performed By: #### DATCBC ####[facility] [address] [place], [place] [address]Dr. Ольга DacostaMONO #0.5 103/ulNormal0.3-0.8The [facility]brier HospitalComment on above:Performed By: #### DATCBC ####[facility] [address] [place], [place] [address]Dr. Ольга ChangMonocytes/100 WBC (Bld)9.2 %Normal 1.7-12.0The [facility] HospitalComment on above:Performed By: #### DATCBC ####[facility] [address] [place], [place] [address]Dr. Ольга PraneethNEUT #2.7 103/ulNormal1.4-6.5The [facility] HospitalComment on above: Performed By: #### DATCBC ####[facility] Yxwwjlcm[address] [place], [place] [address]Dr. Ольга DacostaNeutrophils/100 WBC (Bld)49.0 %Normal 43.0-75.0The White HospitalComment on above:Performed By: #### DATCBC ####[facility] Ezjfjmacdy[address] [place], [place] [address]Dr. Ольга DacostaPlatelet mean volume (Bld) [Entitic vol]11.4 fLNormal9.5-13.5The White HospitalComment on above:Performed By: #### DATCBC ####[facility] Vdgrdvfjre[address] [place], [place] [address]Dr. Ольга ChangPLT 243 103/gbFigbhb489-582Dku White HospitalComment on above:Performed By: #### DATCBC ####[facility] Imlitxtmvz[address] [place], [place] [address]Dr. Ольга ChangRBC5.97 106/ulCritically high4.20-5.40[facility] Comment on above:Performed By: #### DATCBC ####[facility] Jftgdxefyy[address] [place], [place] [address]Dr. Ольга DacostaWBC5.5 103/ulNormal4.0-11.0 The White HospitalComment on above:Performed By: #### DATCBC ####[facility] Bbaqhygplj[address] [place], [place] [address]Dr. Ольга DacostaDAT - TSHon 68-81-0879TOA8.495 uIU/mLNormal0.358-3.740The White HospitalComment on above:Performed By: #### DONOVAN GENAO ####[facility] Rezjpaygkl[address] [place], [place] [address]Dr. Nerissakathy DacostaTSH RANGESEE BELOWNoalThMcKitrick HospitalComment on above:Result Comment: <0.34 UIU/ml HYPERTHYROID 0.34-5.60 UIU/ml EUTHYROID >5.60 UIU/ml HYPOTHYROIDPerformed By: #### BIRGIT DATBMP ####[facility] Efnfkytsaj[address] [place], [place] [address]Dr. Yilan ChangDAT- BMP WITH LIPIDon 44-41-4902Wijon gap [Moles/Vol]10.3 mmol/LNormalThe White HospitalComment on above:Performed By: #### BIRGIT DATBMP ####[facility] Ubpllfiovw[address] [place], [place] [address]Dr. Yilan ChangCalcium [Mass/Vol]9.1 mg/dLNormal8.5-10.1The White HospitalComment on above:Performed By: #### BIRGIT DATBMP ####[facility] T[address]qhzfzk[address] [place], [place] [address]Dr. Yilan ChangChloride [Moles/Vol]104 mmol/KCwtwqc17-311Yqr White HospitalComment on above:Performed By: #### BIRGIT DATBMP ####[facility] Fdkmoupjwv[address] [place], [place] [address]Dr. Yilan ChangCholesterol [Mass/Vol]162 mg/dLNormal <=200The [facility] HospitalComment on above:Performed By: #### BIRGIT DATBMP ####[facility] Ofrxbrjnqd[address] [place], [place] [address]Dr. Yilan ChangCholesterol in HDL [Mass/Vol]59 mg/jLTuwgrj82-08Xec [facility] Comment on above:Performed By: #### BIRGIT DATBMP ####[facility] Ymnybzcxad[address] [place], [place] [address]Dr. Yilan ChangCholesterol in LDL [Mass/Vol]88.0 mg/dLNormalThe White HospitalComment on above:Performed By: #### DATTSFreda, DATBMP ####[facility] Lhkjyhyvci[address] [place], [place] [address]Dr. Yilan ChangCO2 [Moles/Vol]29.1 mmol/LNormal 21.0-32.0The [facility] HospitalComment on above:Performed By: #### DATKAUSHIK DATBMP ####[facility] [address] [place] [address]Dr. Yilan ChangCreatinine [Mass/Vol]0.59 mg/dLNormal0.55-1.02[facility] Comment on above:Performed By: #### BIRGIT DATBMP ####[facility] Ofinfkbdak[address] [place], [place] [address]Dr. Yilan ChangEGFR-AF BAHAMIAN>60Normal>=60The [facility] HospitalComment on above:Performed By: #### BIRGIT DATBMP ####[facility] Wlyekojovs[address] [place], [place] [address]Dr. Yilan ChangEGFR-NON AF BAHAMIAN>60Normal>=60[facility] Comment on above:Performed By: #### BIRGIT DATBMP ####[facility] Akxzlzaaxf[address] [place], [place] [address]Dr. Yilan ChangGlucose [Mass/Vol]100 mg/gRItrcvk74-576FiiBluffton HospitalComment on above:Performed By: #### BIRGIT DATBMP ####[facility] Qqmjryksmq[address] [place], [place] [address]Dr. Yilan ChangHDL NORMAL> or = 60 mg/dl - LOW CARDIOVASCULAR RISK <40 mg/dl - HIGH CARDIOVASCULAR RISKSalem City HospitalComment on above:Performed By: #### BIRGIT DATBMP ####[facility] Wzqzirgzqt[address] [place], [place] [address]Dr. Yilan ChangLDL CALC NORMALSEE BELOWSalem City HospitalComment on above:Result Comment: <100 mg/dl OPTIMAL 100 - 129 mg/dl NEAR OR ABOVE OPTIMAL 130 - 159 mg/dl BORDERLINE HIGH 160 - 189 mg/dl HIGH >190 mg/dl VERY HIGHPerformed By: #### DATTSFreda DATBMP ####[facility] Ewlhqitowh[address] [place], [place] [address]Dr. Yilan ChangPotassium [Moles/Vol]4.4 mmol/LNormal3.5-5.1[facility] Comment on above:Performed By: #### BIRGIT DATBMP ####[facility] [address] [place] [address]Dr. Yilan ChangSodium [Moles/Vol]139 mmol/HHgpjhb378-416Bbc White HospitalComment on above: Performed By: #### DATKAUSHIK DATBMP ####[facility] [address]frket[address] [place] [address]Dr. Yilan ChangTriglyceride [Mass/Vol]75 mg/dLNormal <=150The [facility] HospitalComment on above:Performed By: #### BIRGIT DATBMP ####[facility] [address]vq[address] [place] [address]Dr. Yilan ChangUrea nitrogen [Mass/Vol]25.0 mg/dLCritically high7.0-18.0The [facility] HospitalComment on above:Performed By: #### BIRGIT DATBMP ####[facility] [address] [place] [address]Dr. Yilan ChangUrea nitrogen/Creatinine [Mass ratio]42.4 mg/mgNoMetroHealth Main Campus Medical CenterComment on above:Performed By: #### BIRGIT DATBMP ####[facility] [address] [place] [address]Dr. Yilan ChangVLDL CALC15.0 mg/dLNoMetroHealth Main Campus Medical CenterComment on above:Performed By: #### BIRGIT DATBMP ####[facility] Gpkcrtapze[address] [place], [place] [address]Dr. Yilan ChangVC COMP CONSULTATIONon [id number] COMP CONSULTATIONPatient: DONNA ESTRELLA Exam Date: 02/28/2022 : 1950 Gender:F Ordering : DR REINA JOSEPH M.D. Admission #: [id number] Family : Order #: [id number] CLICK HERE TO VIEW EXAM RADIOLOGY REPORT [...] arterial disease 5. CEAP: C3, EC, AP, CO PLAN: 1. Continued use of compression stockings [...] by: Harrison Gil M.D. on 02/28/2022 at 13:38Salem City HospitalVC VENOUS REFLUX TITA LMTon [id number] VENOUS REFLUX TITA LMTPatient: DONNA ESTRELLA Exam Date: 02/28/2022 : 1950 Gender:F Ordering : DR REINA JOSEPH M.D. Admission #: [id number] Family : Order #: [id number] CLICK HERE TO VIEW EXAM RADIOLOGY REPORT [...] chronic thrombus visualized Compressibility: Normal Flow: Normal [employer] Collision Estimator: Dist/med calf 3.2mm with 0s reflux. Mid/med [...] by: Harrison Gil M.D. on 02/28/2022 at 09:48[facility] HospitalMG MAMM SCREEN 3D TITA CADon [id number] MAMM SCREEN 3D TITA CADPatient: DONNA ESTRELLA Exam Date: 01/21/2022 : 1950 Gender:F Ordering : DR ALDEN WHEELER D.O. Admission #: [id number] Family : Order #: [id number] CLICK HERE TO VIEW EXAM RADIOLOGY REPORT [...] by: Reina Joseph MD on 01/21/2022 at 14:35[facility] URINALYSISOrdered By: Danielle Sifuentes on 08-70-1796Srsiiprg LM Ql (Urine sed)Trace /HPFNormalTrace/HPFSOUTHWE[facility] [place] Auto SSBilirubin Ql (U)Negative (12/12/21 11:49 AM)NormalNegativeSOUTHWE[facility] [place] Auto SSCalcium oxalate crystals LM Ql (Urine sed)Present (12/12/21 11:49 AM)NormalSOUTHWEST[facility] [place] [facility] Auto SSClarity (U)Cloudy *ABN* (12/12/21 11:49 AM)Invalid Interpretation CodeClearFOKLAHOMA [facility] [place] UA Auto SSColor (U)Yellow (12/12/21 11:49 AM)NormalYellowSOUTHWESTERN [facility] [place] [facility] Auto SSCrystals LM Ql (Urine sed)Present (12/12/21 11:49 AM)NormalSOUTHWEST[facility] [place] [facility] Auto SSEpithelial cells.squamous LM.HPF (Urine sed) [#/Area]0-2 /HPFNormal0-2/HPFFTMC UA Auto SSGlucose Test strip (U) [Mass/Vol]Negative (12/12/21 11:49 AM)NormalNegativeSOUTHWE[facility] [place] Auto SSHemoglobin Ql (U)3+ *ABN* (12/12/21 11:49 AM)Invalid Interpretation CodeNegativeSOUTHWE[facility] [place] [facility] Auto SSKetones (U) [Mass/Vol]Trace *ABN* (12/12/21 11:49 AM)Invalid Interpretation CodeNegativeSOUTHWE[facility] [place] U[facility] Auto SS [place].plasma/[place].RBC (Bld) [Mass ratio]4-20 /HPFNormal0-3/HPFSOUTHWESTERN [facility]ION[facility] [place] U[facility] Auto SSNitrite Ql (U)Negative (12/12/21 11:49 AM)NormalNegativeSOUTHWEST[facility] [place] [facility] Auto SSpH (U)5.5 *NA* (12/12/21 11:49 AM)Invalid Interpretation Code5.0 - 9.0[facility] Auto SSProtein (U) [Mass/Vol]Negative (12/12/21 11:49 AM)NormalNegativeSOUTHWE[facility] [place] Auto SSSpecific gravity (U) [Rel density]>=1.030 *NA* (12/12/21 11:49 AM)Invalid Interpretation Code1.005 - 1.030[facility] Auto SSUA Spec DescClean Catch (12/12/21 11:49 AM)NormalSOUTHWEST[facility] Auto SSUrobilinogen Qn (U)0.2500262 {[place]'U}/dLNormal0.0 - 1.0 EU/dLSOUTHWESTERN REGIONAL [facility] [place] U[facility] Auto SSWBC Auto Ql (U)Negative (12/12/21 11:49 AM)NormalNegativeSOUTHWE[facility] [place] Auto SSWBC LM.HPF (Urine sed) [#/Area]0- 5 /HPFNormal0-5/HPFMC UA Auto SS Vital Signs Date TimeVital SignValuePerforming OyavdxosiYxpecpyz59-76-3193 08:22-0400Body cqaeyl672.6 cmHarley [facility] Phone: CrossCoreTdohjefclh26-16-7552 08:22-0400Body mass index (BMI) [Ratio]34.6 kg/k6Ioita [facility] Phone: CrossCoreJopuxvejyc97-61-0260 08:22-0400Body saeeyt29.44 kgHarley [facility] Phone: noMindShare NetworksZdqzsyulet04-27-4725 11:19-0400Body zvuxkp001.6 cmHarley [facility] Phone: noMindShare NetworksYpiwbmghku52-62-9077 11:19-0400Body mass index (BMI) [Ratio]35.7 kg/o1Nfimo Brown DO Work Phone: 1(791)[address] [place], [place] 1633206-19-2025 11:19-0400Body ehimuh46.35 kgHarley Arciniega DO Work Phone: 1(992)[address] [place], [place] 1633205-22-2025 09:50-0400Body jxrsju942.6 cmHarley Brown DO Work Phone: 1([phone])[address] [place], [place] 1633205-22-2025 09:50-0400Body mass index (BMI) [Ratio]35.7 kg/a4Wfrtk Brown DO Work Phone: 1([phone])[address] [place], [place] 1633205-22-2025 09:50-0400Body .35 kgHarley Arciniega DO Work Phone: 1(199)[address] [place], [place] 1633205-08-2025 11:38-0400Hourly Rounding Harley Arciniega [address] [place], [place] 1360605-08-2025 11:38-0400 Promise to ReturnHarley Arciniega [address]05-08-2025 10:00-0400 Hourly RoundingHarley Arciniega [address] [place], [place] 1360605-08-2025 10:00-0400 Promise to ReturnHarley Arciniega [address]05-08-2025 09:22-0400 Hourly RoundingHarley Arciniega [address] [place], [place] 5745105-08-2025 09:22-0400 Promise to ReturnHarley Arciniega [address] [place], [place] 1360605-08-2025 07:54-0400Heart rate56 /minHarley Arciniega [address] [place], [place] 5745105-08-2025 07:54-3790KyO7% (BldA) [Mass fraction]96 %Harley Arciniega [address] [place], [place] 5745105-08-2025 07:54-0400 Respiratory rate18 /minHarley Arciniega [address] [place], [place] 1360605-08-2025 07:53-0400Body vbebbxwlcws23.7 [degF]Harley Arciniega [address] [place], [place] 1360605-08-2025 07:53-0400 Diastolic blood mm[Hg]Harley Arciniega [address] [place], [place] 1360605-08-2025 07:53-0400Mean blood coqfatlj91 mm[Hg]Harley Arciniega [address] [place], [place] 1360605-08-2025 07:53-0400 Systolic blood lhavvvdf566 mm[Hg]Harley Arciniega [address] [place], [place] 1360605-08-2025 03:35-0400Blood Pressure LocationHarley Arciniega [address] [place], [place] 1360605-08-2025 03:35-0400Body vkkejymgsdl74.7 [degF]Harley Arciniega [address] [place], [place] 1360605-08-2025 03:35-0400 Diastolic blood mm[Hg]Harley Arciniega [address] [place], [place] 1360605-08-2025 03:35-0400Heart rate56 /Anthony Arciniega [address] [place], [place] 1360605-08-2025 03:35-0400Mean blood sgbuotam717 mm[Hg]Harley Arciniega [address] [place], [place] 1360605-08-2025 03:35-0400 Respiratory rate16 /Anthony Arciniega [address] [place], [place] 1360605-08-2025 03:35-6439LoM7% (BldA) [Mass fraction]95 %Harley Arciniega [address] [place], [place] 1360605-08-2025 03:35-0400 Systolic blood hrjshawa588 mm[Hg]Harley Arciniega [address] [place], [place] 1360605-07-2025 23:54-0400Blood Pressure LocationHarley Arciniega [address] [place], [place] 5745105-07-2025 23:54-0400Body liubzbzstqm31.52 [degF]Harley Arciniega [address] [place], [place] 5745105-07-2025 23:54-0400 Diastolic blood ozpiivou43 mm[Hg]Harley Arciniega [address] [place], [place] 5745105-07-2025 23:54-0400Heart rate56 /Anthony Arciniega [address] [place], [place] 5745105-07-2025 23:54-0400Mean blood mm[Hg]Harley Arciniega [address] [place], [place] 1360605-07-2025 23:54-0400 Respiratory rate16 /Anthony Arciniega [address] [place], [place] 1360605-07-2025 23:54-7677ThU9% (BldA) [Mass fraction]95 %Harley Arciniega [address] [place], [place] 5745105-07-2025 23:54-0400 Systolic blood rihzobti100 mm[Hg]Harley Arciniega [address]05-07-2025 16:49-0400Body .7 [degF]Harley Arciniega [address] [place], [place] 5745105-07-2025 16:48-0400Mean blood ulwygcmk98 mm[Hg]Harley Arciniega [address] [place], [place] 5745105-07-2025 10:41-0400Body bqmpjsiujwz72.26 [degF]Harley Arciniega [address] [place], [place] 5745105-07-2025 10:39-0400Mean blood ilkrjuma72 mm[Hg]Harley Arciniega [address] [place], [place] 1360605-07-2025 10:21-0400 Respiratory rate14 /Anthony Arciniega [address] [place], [place] 5745105-07-2025 10:21-0400Body hhdjmcotlvx55.34 [degF]Harley Arciniega [address] [place], [place] 5745105-07-2025 10:21-0400Mean blood hhxinwgl17 mm[Hg]Harley Arciniega [address] [place], [place] 5745105-07-2025 10:10-0400 Respiratory rate17 /Anthony Arciniega [address] [place], [place] 5745105-07-2025 10:05-0400 Respiratory rate13 /Anthony Arciniega [address]05-07-2025 09:37-0400Body biopvrxequt51.98 [degF]Harley Arciniega [address] [place], [place] 5745105-07-2025 06:15-0400Heart rate66 /Anthony Arciniega [address] [place], [place] 5745105-07-2025 06:02-0400Blood Pressure LocationHarley Arciniega [address] [place], [place] 5745104-29-2025 11:40-0400Body hjjvto413.56 cmSelect [facility]04-29-2025 11:40-0400Body mass index (BMI) [Ratio]35.9 kg/i2MdqdoclboSelect [facility]04-29-2025 11:40-0400Body btiler75.97 kgSelect [facility]ty [facility]04-29-2025 11:40-0400Diastolic blood sanzmfiz12 mm[Hg][facility] 11-23-2024 11:40-0400Heart rate64 /[facility] 11-23-2024 11:40-0400Respiratory rate12 /[facility] 11-23-2024 11:40-0400Systolic blood tgntooze563 mm[Hg][facility]04-24-2025 10:33-0400Diastolic blood bnyxyuqn62 mm[Hg]Harley Arciniega [address]04-24-2025 10:33-0400Heart rate72 /Anthony Arciniega [address] [place], [place] 5745104-24-2025 10:33-0400Mean blood mm[Hg]Harley Arciniega [address] [place], [place] 5745104-24-2025 10:33-0400 Systolic blood suwzoiqd811 mm[Hg]Harley Arciniega [address] [place], [place] 5745104-24-2025 10:32-0400Heart rate75 /Anthony Arciniega [address] [place], [place] 1360604-24-2025 10:32-6258FzX9% (BldA) [Mass fraction]96 %Harley Arciniega [address] [place], [place] 5745104-24-2025 10:32-0400 Respiratory rate18 /Anthony Arciniega [address] [place], [place] 5745104-24-2025 10:32-0400 Diastolic blood otksnwtk04 mm[Hg]Harley Arciniega [address] [place], [place] 5745104-24-2025 10:32-0400Mean blood nwnehvaq698 mm[Hg]Harley Arciniega [address] [place], [place] 5745104-24-2025 10:32-0400 Systolic blood atbicegg929 mm[Hg]Harley Arciniega [address] [place], [place] 5745104-24-2025 09:21-0400Body unokdh975.6 cmAmauryalma Jung Quu Work Phone: 1(472)[address] [place], [place] 1633204-24-2025 09:21-0400Body mass index (BMI) [Ratio]35.7 kg/v5Qnyjn Jung Quu Work Phone: 1(359)[address] [place], [place] 1633204-24-2025 09:21-0400Body kduqqo86.35 kgHarley Jung Quu Work Phone: 1(318)[address] [place], [place] 1633211-21-2024 09:52-0500Body mass index (BMI) [Ratio]36.6 kg/b5QqsloprysSelect [facility]11-21-2024 09:36-0500 Body gvexcn700.56 cmSelect [facility]11-21-2024 09:36-0500Body pxpohf53.67 kgSelect [facility]11-21-2024 09:36-0500Diastolic blood wvhynidu53 mm[Hg][facility]11-21-2024 09:36-0500 Heart rate74 /[facility]11-21-2024 09:36-0500 Respiratory rate12 /[facility]11-21-2024 09:36-0500 Systolic blood ndchewod990 mm[Hg][facility]10-16-2024 10:21-0400Blood Pressure LocationKathy Lue [facility]10-16-2024 10:0400Diastolic blood xgnfogwz66 mm[Hg]Ramila Lue [facility]10-16-2024 10:21-0400Heart rate66 /minKathy Lue [facility]10-16-2024 10:21-0400Systolic blood mm[Hg]Ramila Lue [facility]08-28-2024 10:06-0400Body stczeh969.56 cmSelect [facility]08-28-2024 10:06-0400Body mass index (BMI) [Ratio]36.4 kg/m9AffebquceSelect Medical [facility]ty [facility]08-28-2024 10:06-0400Body gizhbn55.27 kgSelect [facility]08-28-2024 10:06-0400Diastolic blood ojtberpb80 mm[Hg] [facility]08-28-2024 10:06-0400Heart rate77 /[facility]08-28-2024 10:06-0400Respiratory rate12 /[facility]08-28-2024 10:06-0400Systolic blood abwhxkko585 mm[Hg] [facility]08-14-2024 14:58-0400Body iumjeg600.56 cm [facility]08-14-2024 14:58-0400Body mass index (BMI) [Ratio]36.7 kg/t0IyjfjesmvSelect [facility]ty [facility]08-14-2024 14:58-0400Body hehliu08.06 kgSelect [facility]08-14-2024 14:58-0400Diastolic blood ylxevpef85 mm[Hg][facility]08-14-2024 14:58-0400 Heart rate84 /[facility]08-14-2024 14:58-0400 Respiratory rate12 /[facility]08-14-2024 14:58-0400 Systolic blood mdewrtqp939 mm[Hg][facility]05-10-2024 12:01-0400Body efxrrz837.8 cmRosmery Guillermo [employer] Work Phone: [facility]05-10-2024 12:01-0400Body mass index (BMI) [Ratio]36.4 kg/x0DzpqupqRosmery Guillermo [employer] Work Phone: [facility]05-10-2024 12:01-0400Body .7 kgRosmery Guillermo [employer] Work Phone: [facility]05-10-2024 12:01-0400Diastolic blood vonamtbj57 mm[Hg]Rosmery Guillermo [employer] Work Phone: [facility]05-10-2024 12:01-0400Heart rate 81 /Ricky Guillermo [employer] Work Phone: [facility]05-10-2024 12:01-0400Systolic blood zkkpjruc974 mm[Hg]Rosmery Guillermo [employer] Work Phone: [facility]04-16-2024 15:50-0400Body hfsate843.56 cmSelect [facility]04-16-2024 15:50-0400Body mass index (BMI) [Ratio]36.7 kg/y6JnqjbywwqSelect [facility]04-16-2024 15:50-0400Body .12 kgSelect [facility]04-16-2024 15:50-0400Diastolic blood zmdlsoml38 mm[Hg][facility] 11-11-2023 15:50-0400Heart rate73 /[facility] 11-11-2023 15:50-0400Respiratory rate12 /[facility] 11-11-2023 15:50-0400Systolic blood mm[Hg][facility]10-11-2023 08:03-0400Blood Pressure LocationKathy Lue [facility]10-11-2023 08:03-0400Diastolic blood fggvhhax18 mm[Hg]Ramila Lue [facility]10-11-2023 08:03-0400Heart rate70 /minKathy Lue [facility]10-11-2023 08:03-0400Respiratory rate16 /minKathy Lue [facility]10-11-2023 08:03-0400Systolic blood guyiqlvw851 mm[Hg]Ramila Lue [facility]09-26-2023 08:45-0400Body kondzz879.56 cmBenjamin Ball Other [place] [employer] Other 09-26-2023 08:45-0400Body mass index (BMI) [Ratio]36.8 kg/l0Qwvkqohk Ball Other [place] Other 09-26-2023 08:45-0400Body yjlqfv53.25 kgBenjamin Ball Other [place] Other 09-26-2023 08:45-0400Diastolic blood cawiukpj36 mm[Hg] Alden Ball Other [place] Other 09-26-2023 08:45-0400Respiratory rate12 /minBenjamin Ball Other [place] Other 09-26-2023 08:45-0400Systolic blood xnqmbnhe078 mm[Hg] Alden Ball Other [place] Other 06-05-2023 08:45-0400Body ncbmad344.56 cmBenjamin Ball Other [place] Other 06-05-2023 08:45-0400Body mass index (BMI) [Ratio] 37.35 kg/b1Rwlpuegp Ball Other [place] Other 06-05-2023 08:45-0400Body inwktr26.7 kgBenjamin Ball Other [place] Other 06-05-2023 08:45-0400Diastolic blood ongbviph66 mm[Hg] Alden Ball Other [place] Other 06-05-2023 08:45-0400Respiratory rate12 /minBenjamin Ball Other [place] Other 06-05-2023 08:45-0400Systolic blood jppkdzza984 mm[Hg] Alden Ball [facility] [employer] Other 04-07-2023 10:30-0400Body .56 cmBenjamin Ball Other [facility] [employer] Other 04-07-2023 10:30-0400Body mass index (BMI) [Ratio] 37.72 kg/q1Nkjlxjsg Ball Other [place] [employer] Other 04-07-2023 10:30-0400Body nqwesv60.7 kgBenjamin Ball Other [facility] [employer] Other 04-07-2023 10:30-0400Diastolic blood jswxkfef41 mm[Hg] Alden Ball Other [facility] [employer] Other 04-07-2023 10:30-0400Respiratory rate12 /minBenjamin Ball Other [facility] [employer] Other 04-07-2023 10:30-0400Systolic blood bpwofpvz460 mm[Hg] Alden Ball Other [facility] [employer] Other 10-05-2022 08:17-0400Blood Pressure LocationKathy Lue [facility]10-05-2022 08:17-0400Diastolic blood mm[Hg]Ramila Lue [facility]10-05-2022 08:17-0400Heart rate74 /minKathy Lue [facility]10-05-2022 08:17-0400Systolic blood ujufftsc301 mm[Hg]Ramila Lue [facility]05-18-2022 11:07-0400Blood Pressure LocationKathy Lue [facility] 05-18-2022 11:07-0400Diastolic blood pvqjorqx44 mm[Hg] Ramila Lue [facility] 05-18-2022 11:07-0400Heart rate69 /minKathy Lue [facility] 05-18-2022 11:07-0400Respiratory rate16 /minKathy Lue [facility] 05-18-2022 11:07-0400Systolic blood yebmmcrw850 mm[Hg] Ramila Lue 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 LueFacility:[place] evueStart: 06-01-2025 End: 03-53-2714Isinsun encounter procedureRamila BaileeRafia Chaparroherlinda [facility] [place] start: 04-14-2025 End: 19-98-2266Eiupiye encounter procedureHarley Arciniega DO Work Phone: [facility]opaedicsComment on above:Status post total left knee replacement (Primary Dx); Chronic pain of right kneeStart: 04-14-2025 End: 48-75-9770xaehnedarpIIBRB A BROWNNot AvailableStart: 04-13-2025 End: 16-87-0156Fogabp flowsheetJonathan D Zahler DO Work Phone: [facility] EyeStart: 04-13-2025 End: 19-44-6094Zmwutu flowsheetJonathan D Zahler DO Work Phone: [facility] EyeStart: 04-13-2025 End: 78-72-0391jtyssjvnemOUDSSMLI D LAQUITAERNot AvailableStart: 04-06-2025 End: 61-82-3923Rysayz flowsheetJonathan D Zahler DO Work Phone: [facility] EyeStart: 04-06-2025 End: 43-85-4606Ywkbiq flowsheetJonathan D Zahler DO Work Phone: noms [facility] EyeStart: 04-06-2025 End: 10-93-3529orbtrxbhokBXEXEJNW D LAQUITAERNot AvailableStart: 02-25-2025 End: 39-14-1370vldrsrwhhuKhywvt X OrzechFacility:EU [facility] Hospitaltart: 02-25-2025 End: 62-38-0906Wosmsom encounter procedureAurora X Orzech [facility] Start: 01-13-2025 End: 48-40-3240Lmskxzd encounter procedureHarley Arciniega DO Work Phone: noms NB ORTHOComment on above:Status post total left knee replacement (Primary Dx); Chronic pain of right kneeStart: 01-13-2025 End: 24-56-7545sndkvqaxmvGTUON A BROWNNot AvailableStart: 01-13-2025 End: 97-15-7229oupyjpkeraSKGLB A BROWNNot AvailableStart: 12-29-2024 End: 23-24-5408Jsgarj flowsheetJonathan D Zahler DO Work Phone: NOMS NB OPHTStart: 12-29-2024 End: 67-20-4859Vlazyf flowsheetJonathan D Zahler DO Work Phone: NOMS NB OPHTStart: 12-29-2024 End: 30-94-0821jjqpojzllwMJNSXZWY D ZAHLERNot AvailableStart: 12-22-2024 End: 11-90-5975Zlqrdk flowsheetJason A Brown DO Work Phone: [phone] ORTHOStart: 12-22-2024 End: 83-33-4129Shssuw flowsheetJason A Brown DO Work Phone: NOMS ORTHOStart: 12-22-2024 End: 44-22-5921ltvtstegjrUGRUB A BROWNNot AvailableStart: 12-16-2024 End: 33-93-8058Szxssuh encounter procedureJason A Brown DO Work Phone: [phone] NB ORTHOComment on above:Status post total left knee replacement (Primary Dx)Start: 12-16-2024 End: 45-54-0800luiktguuvqQLNTT A BROWNNot AvailableStart: 12-02-2024 End: 64-40-8916Xbfknlkja Result EncounterJason A Brown DO Work Phone: [phone] External Department UnsolicitedStart: 12-02-2024 End: 62-21-1378Atdoyrbsk Result EncounterJason A Brown DO Work Phone: [phone] External Department UnsolicitedStart: 12-01-2024 End: 01-50-7290Mzchxzhnl Result EncounterJason A Brown DO Work Phone: [phone] External Department UnsolicitedStart: 12-01-2024 End: 12-06-2459Rqlexnqnn Result EncounterJason A Brown DO Work Phone: NOMS External Department UnsolicitedStart: 12-01-2024 End: 62-91-1053vezmdbweiaRhbiv A BrownFacility:FTMCStart: 12-01-2024 End: 20-99-2831Aitiium encounter procedureHarley Arciniega [facility] Start: 11-29-2024 End: 69-07-3968Qkuhtv Alexis Wagoner PT Work Phone: NOMS CI PTStart: 11-29-2024 End: 80-06-7619Zgqrbnalberto Wagoner PT Work Phone: NOMS CI PTStart: 11-29-2024 End: 69-41-3017jtljbfvxhhKzenuc T Blackston PT Work Phone: NOMS CI PTComment on above:Primary osteoarthritis of left kneeStart: 11-23-2024 End: 45-84-5079lrqhwatunnYgpzlkrxaMagruder Memorial Hospital Work Phone: Start: 11-23-2024 End: 66-80-6087Dwodfjbjr for other preprocedural examinationParma Community General Hospitaltart: 11-23-2024 End: 13-39-9805Oaynvla encounter procedureE[facility] Work Phone: Start: 11-18-2024 End: 60-03-5757Pynhjw Sarah Arciniega DO Work Phone: NOMS ORTHOStart: 11-18-2024 End: 85-54-7285Vrkxix flowsJo Arciniega DO Work Phone: NOMS ORTHOStart: 11-18-2024 End: 70-18-6731Wvqfkluaf Result EncounterHarley Arciniega DO Work Phone: NOMS External Department UnsolicitedStart: 11-18-2024 End: 82-03-2642Rmupcel encounter procedureJason A Brown DO Work Phone: NOMS NB ORTHOComment on above:Pre-op testingStart: 11-18-2024 End: 43-53-8732Qlsawkq encounter statusHarley Arciniega DO Work Phone: [facility] Work Phone: Start: 11-18-2024 End: 18-91-0259uzwvftbaqlXcaow A BrownFacility:FTMCStart: 11-02-2024 End: 66-23-9730Rjrvho OnlyClay Pricehler DO Work Phone: NOTR NB OPHTComment on above:Glaucoma suspect of both eyes (Primary Dx)Start: 10-26-2024 End: 33-63-4392ZrisqyWckxwrsw D Radhahler DO Work Phone: NOMS NB OPHTComment on above: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, mild stageStart: 10-05-2024 End: 60-42-9402qcmtteizmfIUQDN A BROWNNot AvailableStart: 10-05-2024 End: 71-38-0035enyxhlkfngMHMER A BROWNNot AvailableStart: 09-29-2024 End: 51-79-7095Jaslko flowsheetJessicahan Elke Radhahler DO Work Phone: NOMS NB OPHTStart: 09-29-2024 End: 43-61-4514Qauvou flowsheetJonathan Elke Radhahler DO Work Phone: NOMS NB OPHTStart: 09-29-2024 End: 50-63-6206muqywuncijDSIOHYHS D ZAHLERNot AvailableStart: 09-07-2024 End: 76-90-1348TvthvxVwufhuz Weisenberger COT Work Phone: NOMS NB OPHTComment on above: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, mild stage (CMS/HCC)Start: 08-27-2024 End: 06-70-5439XybsyuLrgukdf Alaniz COTNOMS NB OPHTComment on above: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, mild stage (CMS/HCC)Start: 07-09-2024 End: 76-49-7591Qqfrfw flowsheetJonathan D Zahler DO Work Phone: noms NB OPHTStart: 07-09-2024 End: 27-25-0627Qcvykv flowsheetJonathan D Zahler DO Work Phone: noms NB OPHTStart: 07-09-2024 End: 50-76-0655eamhyeukozNVKZQQPB D ZAHLERNot AvailableStart: 07-06-2024 End: 41-73-2074QvgoekJkefvjyc D Zahler DO Work Phone: noms NB OPHTComment on above: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, mild stage (CMS/HCC)Start: 07-06-2024 End: 86-94-2937lohzszxuekDGSIBEVN Elke PRICEHLERNot AvailableStart: 07-05-2024 End: 96-81-0290Xkimcd flowsheetMaria B Apling 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 Work Phone: noms CI ORTHOPAEDICSStart: 07-05-2024 End: 11-45-4601Ebjvnh flowsheetMaria B Apling 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 Work Phone: noms CI ORTHOPAEDICSStart: 07-05-2024 End: 75-45-2888Sjgedc outpatient visit 15 minutesMaria B Apling 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 Work Phone: noms CI ORTHOPAEDICSComment on above:Arthritis of right knee (Primary Dx); Chronic pain of right kneeStart: 07-05-2024 End: 59-92-4567abxohvlprqDPINN B APLINGNot AvailableStart: 07-02-2024 End: 45-94-6169Ovnaamnin encounterMaria B Apling 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 Work Phone: noms FB ORTHOPAEDICSComment on above:injectionStart: 06-17-2024 End: 75-74-0423bjxxxiokgsGxpnxsdtvMadison Health Work Phone: Start: 06-17-2024 End: 70-41-7024Nlisvgc encounter procedureE[facility] Phys[facility] GroupGreene Memorial Hospital Work Phone: Start: 06-15-2024 End: 68-96-6646Pjwwqv flowsheetJames A Sandra DO Work Phone: noms CI ORTHOPAEDICSStart: 06-15-2024 End: 75-78-8646Tvasof flowsheetJames A Sandra DO Work Phone: noms CI ORTHOPAEDICSStart: 06-15-2024 End: 09-66-3463Jaexhjt encounter procedureJames A Sandra DO Work Phone: noms CI ORTHOPAEDICSComment on above:Arthritis of right kneeStart: 06-15-2024 End: 34-49-4526amsqkoxzikVIYKV A HUDDLESTONNot AvailableStart: 33-11-9726Oghibqi encounter procedureParma Community General Hospitaltart: 20-65-8451Fci- patient / Non-visitFircarilion franklin memorial hospital Physician [facility] Work Phone: Start: 06-08-2024 End: 36-75-9806Nwsqbd flowsheetJames A Sandra DO Work Phone: noms CI ORTHOPAEDICSStart: 06-08-2024 End: 13-58-6639Ktcaph flowsheetJames A Sandra DO Work Phone: noms CI ORTHOPAEDICSStart: 06-08-2024 End: 75-86-9260Yfpdhm follow up visit related to original pxJames A Sandra DO Work Phone: noms CI ORTHOPAEDICSComment on above:Arthritis of right kneeStart: 06-08-2024 End: 83-63-1535trnjudorhiWYKNF A HUDDLESTONNot AvailableStart: 06-01-2024 End: 36-02-7111Tdseqq flowsheetJames A Sandra DO Work Phone: noms CI ORTHOPAEDICSStart: 06-01-2024 End: 21-96-9259Ybgqvh flowsheetJames A Sandra DO Work Phone: noms CI ORTHOPAEDICSStart: 06-01-2024 End: 84-93-9046Azmdqg outpatient visit 25 minutesAdriana Flores DO Work Phone: noms CI ORTHOPAEDICSComment on above:Arthritis of right knee (Primary Dx); Chronic pain of right kneeStart: 06-01-2024 End: 97-83-1847bybriqycccHJTCR A HUDDLESTONNot AvailableStart: 05-12-2024 End: 21-40-3587tzcgtkzktkAfvsw M. LueFacility:FTMCStart: 05-12-2024 End: 71-22-8835Jwa Drop offRamila Pradhan [facility] Start: 05-12-2024 End: 99-30-1982Fpqsmxt encounter procedureRamila Pradhan [facility] start: 04-13-2024 End: 33-82-6146Qqplnj juanlisaAdriana Flores DO Work Phone: noms CI ORTHOPAEDICSStart: 04-13-2024 End: 90-94-1400Hvaqux Una Flores DO Work Phone: noms CI ORTHOPAEDICSStart: 04-13-2024 End: 05-22-9842Ewxlig outpatient visit 15 minutesAdriana Flores DO Work Phone: noms CI ORTHOPAEDICSComment on above:Arthritis of right knee (Primary Dx); Chronic pain of right kneeStart: 03-31-2024 End: 57-66-1769Esbsug flowsheetMaria B Apling 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 Work Phone: noms CI ORTHOPAEDICSStart: 03-31-2024 End: 03-45-0002Vvnaen flowsheetMaria B Apling 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 Work Phone: NOMS CI ORTHOPAEDICSStart: 03-31-2024 End: 20-52-0849Jplram outpatient visit 25 minutesSyl Villalba 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 Work Phone: NOUK CI ORTHOPAEDICSComment on above:Chronic pain of right knee (Primary Dx); Arthritis of right kneeStart: 03-24-2024 End: 67-05-5722vevviixupsMknovurceMadison Health Work Phone: Start: 03-24-2024 End: 18-20-3017Xtygsnr encounter procedureE[facility] Phys[facility] GroupGreene [facility] Hospital Work Phone: Start: 03-10-2024 End: 30-84-4003yiciqvivncHopkawjsiMadison Health Work Phone: Start: 03-10-2024 End: 40-51-4949Bmzhvhy encounter procedureEcu [facility] Phys[facility] GroupGreene Memorial Hospital Work Phone: Start: 02-02-2024 End: 26-34-6652Vyldcjwdn Result EncounterCorey Maldonado DO Work Phone: noms External Department UnsolicitedStart: 02-02-2024 End: 06-25-3287Nnhremofn Result EncounterCorey Maldonado DO Work Phone: noms External Department UnsolicitedStart: 01-01-2024 End: 09-19-3465Zadbme Ana Roberto AProMedica Physicians General SurgeryComment on above:Rectal bleedingStart: 12-05-2023 End: 33-44-4429uphiivvtwdPXOQNIM A MILLBROOKELAINEGood Samaritan [facility] Start: 12-05-2023 End: 25-00-5461Evwbkp outpatient new 30 minutesWinstonlizzy Guillermo [employer]C Work Phone: [facility]El[facility] Physicians General SurgeryComment on above: Rectal bleeding (Primary Dx)Start: 11-11-2023 End: 62-25-5973irtvfdalfgNkrqdplazMadison Health Work Phone: Start: 11-11-2023 End: 34-27-4030Jisacxi encounter procedureFirelands Physician Group-[facility] Work Phone: Start: 75-92-1367Xdn-patient / Non-visitFircarilion franklin memorial hospital Physician [facility] Work Phone: Start: 67-22-1739Cxr-patient / Non-visitFirwest rutlands Physician [facility] Work Phone: Start: 83-16-7303Kna-patient / Non-visitFirelands Physician Group-[facility] Work Phone: Start: 06-10-2023 End: 60-08-1893drxuieimstMamapsnq Ball Other noDemocracy Engine [employer]abelg[employer] Other Start: 12-55-2746Fanuelgaw encounterBenmeseret Wheeler Medical ClinicStart: 05-07-2023 End: 14-59-2982Qolraei encounter procedureRamila Pradhan [facility] start: 04-22-2023 End: 76-39-4719gwpcjvbvxfUlmqztfh Ball Other noDemocracy Engine [employer] Other Start: 76-04-8743Tvclmm outpatient visit 15 minutes Alden bEony Wheeler Medical ClinicStart: 02-03-2023 End: 08-84-5665vswqxkdjbhDhewwooz Ball Other noDemocracy Engine [employer] Other Start: 62-40-2736Beajoyyzw encounterBenjamin SukumarG [facility] ClinicStart: 01-24-2023 End: 80-13-1122jgzsmtizrmKzvcwrju Ball Other noDemocracy Engine [employer] Other Start: 68-15-0796Uaqwquqfh encounterBenjamin [facility] ClinicStart: 01-08-2023 End: 49-44-6397exorzqpghjLlzhovwz Ball Other noBeeminder Other Start: 59-06-3387Safxpjddz encounterBenjamin BallFPG [facility] Medical ClinicStart: 12-30-2022 End: 01-54-6853vfvooefwviPjljusdw Ball Other noBeeminder Other Start: 78-27-5997Vozanx outpatient visit 15 minutes Alden BallFPG [facility] Medical ClinicStart: 46-24-9196bqepilbpplAZ ALDEN BALL Facility:W3Oomdp: 12-05-2022 End: 36-86-7189iduxckelfpHN REINA Delgado WESTFacility:O4Wrqyf: 11-28-2022 End: 62-89-8002jrfcyutzwcXW REINA Delgado WESTFacility:I3Gcfjp: 11-25-2022 End: 43-06-5061zodjwdrdyfIV REINA V WESTFacility:O3Wmjtb: 11-13-2022 End: 22-20-1152qkvefqgyvtXX REINA V WESTFacility:L9Ezuab: 11-06-2022 End: 97-11-7158vzoyfcfdfnLY REINA V WESTFacility:C0Afqox: 11-04-2022 End: 41-87-2185jvhapamamcGgrhkpau Ball Other noBeeminder Other Start: 13-05-1241Jhlvediud encounterBenjamin BallFPG [facility] Medical ClinicStart: 11-01-2022 End: 60-84-6691wavqqaaimfKpjlbdsq Ball Other noBeeminder Other Start: 49-40-0699Pcetnc outpatient visit 15 minutes Alden WheelerFPG [facility] Medical ClinicStart: 10-23-2022 End: 05-96-2663tzxuibnkzbNO REINA Delgado WESTFacility:R7Xuxxs: 10-18-2022 End: 69-54-3707vrpmpasvzrHS DAVID V WESTFacility:B0Rzmlp: 05-28-2022 End: 79-04-7598crztqqtvlqQO DOCTOR MISCFacility:B0Adnxn: 05-27-2022 End: 02-70-2042abosjlwpchFH DOCTOR MISCFacility:G1Oqyqg: 05-01-2022 End: 99-68-5352Mjbymea encounter procedureRamila Pradhan [facility] start: 02-28-2022 End: 15-89-9165fxxjzlbbnkCQ REINA JOSEPHFacility:J8Fvtlc: 01-22-2022 End: 43-36-1587Wftlref encounter procedureEd Kramer Jr. [facility] start: 01-21-2022 End: 42-60-5952qnnxefvzulGZ BENJAMIN BALLFacility:A8Jttsv: 12-12-2021 End: 87-39-5003Wke Drop offRamila Pradhan [facility] Start: 12-12-2021 End: 38-49-1606Vmoeymp encounter Buddy Pradhan 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, mild stage (Primary Dx); Epiretinal membrane (ERM) of left eye; Dry eyes, bilateral; 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 edema (CMS-HCC); Blepharitis of upper and lower eyelids of both eyes, unspecified typeStart: 04-06-2025 End: 32-98-1934SuqrySaint Joseph [facility]&eval intermediate estab ptBlepharitis of upper and lower [...] Sai Reyes Jung DO Work Phone: Start: 23-06-2451Nplgztcoap examination knee 3 views Harley Reyes Recurve DO Work Phone: Start: 12-29-2024 End: 00-17-5610MgdfsSaint Joseph [facility] comprhnsv estab pt 1/>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, mild stageJovianney Bedoya Bethany DO Work Phone: comment on above:Epiretinal membrane (ERM) of left eye (Primary Dx); 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, mild stage; Dry eyes, bilateral; 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 edema; Blepharitis of upper and lower eyelids of both eyes, unspecified typeStart: 79-58-9043Okzbqwsjzv examination knee 3 viewsAmauryalma Amy Brown DO Work Phone: start: 73-53-7364ATTH BUNHarley Reyes Brown DO Work Phone: start: 75-12-4308WUTZ CREATININEJason Amy Brown DO Work Phone: start: 61-57-3128ETSY EGFRJason Amy Brown DO Work Phone: start: 61-86-7285FBJM LYTESHraley Arciniega DO Work Phone: Start: 08-77-9129JX KNEE 1 OR 2 VIEWS LEFTHarley Arciniega DO Work Phone: Start: 22-83-2964Zsvlr knee replacementHarley Brown start: 09-80-3178VG LOWER EXTREMITY W/O CONTRAST LEFT Harley Arciniega DO Work Phone: Start: 94-79-2344NQ WITH CULT RFLXHarley Arciniega DO Work Phone: start: 09-29-2024 End: 06-70-9605IistzSaint Joseph [facility]&eval [facility] pt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 edemaClay Torres DO Work Phone: comment on above: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 edema (Primary Dx); Epiretinal membrane (ERM) of left eye; Dry eyes, bilateral; Blepharitis of upper and lower eyelids of both eyes, unspecified type; 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, mild stage (CMS/HCC)Start: 07-09-2024 End: 53-39-3052RniyaSaint Joseph [facility]&evmarshall medical [facility] pt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 edemaClay Torres DO Work Phone: comment on above: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 edema (Primary Dx); Epiretinal membrane (ERM) of left eye; Dry eyes, bilateral; Blepharitis of upper and lower eyelids of both eyes, unspecified type; 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, mild stage (CMS/HCC)Start: 07-06-2024 End: 04-15-1086BrjniSaint Joseph [facility] [place]&eval comprhnsv estab pt 1/>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, mild stage (CMS/HCC)Clay Torres DO Work Phone: comment on above: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, mild stage (CMS/HCC) (Primary Dx); 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 edema; Epiretinal membrane (ERM) of left eye; Dry eyes, bilateral; Blepharitis of upper and lower eyelids of both eyes, unspecified typeStart: 01-84-7029Egsfhfdcnoztlz aspir&/inj major jt/bursa w/o usJames A Sandra DO Work Phone: Start: 37-85-8144Fspwafkfpyefqq aspir&/inj major jt/bursa w/o usJames A Sandra DO Work Phone: Start: 08-97-0672Unwqtaaivzzsxp aspir&/inj major jt/bursa w/o usJames A Sandra DO Work Phone: Start: 32-59-8261Xqhhkv field xm uni/bi w/interp extended examJovianney Torres DO Work Phone: Start: 04-14-2024 End: 83-61-4996Iaecc medical xm&eval intermediate estab pt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 edemaJovianney Torres DO Work Phone: comment on above:Dry eyes, bilateral (Primary Dx); 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 edema; Epiretinal membrane (ERM) of left eye; Glaucoma suspect of both eyes; Blepharitis of upper and lower eyelids of both eyes, unspecified typeStart: 70-89-6517Shkpuhsntsexgk aspir&/inj major jt/bursa w/o usMaria B Apling 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 Work Phone: Start: 28-77-2636FQ TOMOSYNTHESIS SCREENING BICorey Maldonado DO Work Phone: Start: 38-96-2935JebkhyjbetdHwcls Apling 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 Work Phone: Start: 76-59-6339QccfwjhsfkzDzzimyy A Carroll [employer] Work Phone: Start: 78-32-7821Rmeknejp extraction and insertion of intraocular lensRamila Pradhan Start: 70-11-7543Lxyiqnsc extraction and insertion of intraocular lensRamila Pradhan CholecystectomyRamila Pradhan Closed reduction of fracture of humerus with percutaneous fixation using bone pinHarley Arciniega Deliveries by (finding)Harleyalma Arciniega Injection of sclerosing agent into vein of lower limb Harley Arciniega Comment on above:2022Open reduction of fracture with internal fixationHarley Arciniega Procedure on kneeRamila Pradhan Plan of Treatment DateCare ActivityDetailAuthorStart: 12-12-2025 End: 71-75-2635Ljabyft encounter encguatdw62/18/2026 9:00 AM EDT Office Visit [facility] [address] [place] [address] Harley Arciniega, DO [address] [place], [place] [id number] [facility] OrthopaedicsStart: 06-21-2025 End: 92-34-1460Fjigcow encounter gzfnksudl70/25/2025 9:45 AM EST Office Visit [facility] [address] [place] [address] Clay Torres DO [address] [place] [address] [facility] EyeStart: 06-20-2025 End: 76-16-8013Zvdsvaa encounter iaejdofrb69/24/2025 9:00 AM EST Office Visit [facility] [address] [place] [address] Harley Arciniega DO [address] [place], [place] [id number] [facility]opaedicsStart: 06-13-2025 End: 32-12-0145Gegxxyo encounter fkyqazsvu33/17/2025 11:00 AM EST Procedure Visit [facility] [place] [address] [place], [id number] Ruthann Camp PA [address] [place] [address] [facility] OBGYNStart: 04-14-2025 End: 83-35-1102Naefnka encounter iboobzgss12/18/2025 10:30 AM EDT Office Visit [facility] [address] [facility] [address] Harley Arciniega, DO [address] [place] [address] [facility] ORTHOStart: 04-14-2025 End: 35-23-9348Pzoalmn encounter qworvrcha09/18/2025 8:30 AM EDT Office Visit [facility] [place] [facility] [address] [facility] [address] Harley Arciniega, DO [address] [place] [address] [facility]opaedicsStart: 04-13-2025 End: 66-54-8378Reyxfzc encounter fifblruas40/17/2025 1:45 PM EDT Office Visit [facility] [address] [place] [address] Clay Torres, DO [address] [place] [address] ArrivedNOMS [facility] EyeComment on above:ArrivedStart: 04-06-2025 End: 53-96-1314Yrlhngz encounter procedureNOMS NB OPHTComment on above:Arrived Start: 97-26-4062GGDIB-19 Vaccine ( season)COVID-19 Vaccine ( season)[facility] HealthcareStart: 76-02-6723Fgjypcfku vaccinationInfluenza Vaccine (#1)[facility] HealthcareStart: 28-83-7522Jlzefsqzu for malignant neoplasm of breastMammogramNOMS HealthcareStart: 01-13-2025 End: 75-80-7063Thgdzex encounter ssklsounm12/19/2025 10:45 AM EDT Office Visit [facility] [address] [facility] [place] [address] Harley Arciniega DO [address] [place] [address] N[facility]S NB ORTHOStart: 12-29-2024 End: 39-62-4177Uhdtnjh encounter procedureNOMS NB OPHTComment on above:Arrived Start: 12-24-2024 End: 83-55-7821Hqxgrbg encounter kcobtdryx35/30/2025 10:15 AM EDT Office Visit [facility] [address] [place] [address] Clay Torres, DO [address] [place] [address] NOMS NB OPHTStart: 12-22-2024 End: 08-93-8791Fuccfuid SupportNOMS SWS ORTHOAOComment on above:ArrivedStart: 12-16-2024 End: 70-25-6461Jwzdlos encounter lgebgqwgo59/22/2025 9:45 AM EDT Office Visit [facility] [address] [place] [address] Harley Arciniega DO [address] [place] [address] NOMS NB ORTHOStart: 12-08-2024 End: 88-92-4073Hrqbpjh encounter jnvfzbemr48/14/2025 11:00 AM EDT Office Visit [facility] [address] [place] [address] Clay Torres DO [address] [place] [address] [facility] OPHTStart: 60-46-4605Pgdwq BMI ScreeningAdult BMI ScreeningProSt. Vincent Hospitalca Health SystemStart: 73-03-3642Hggktlt ScreeningTobacco ScreeningProSt. Vincent Hospitalca [facility] SystemStart: 11-29-2024 End: 44-98-4366mbezkevgbkRVLC CI PTComment on above:Primary osteoarthritis of left kneeStart: 11-18-2024 End: 59-68-3199Zunuzquahn complete panel - UrineUrinalysis with reflex microscopic Lab Routine Pre-op testing Expected: 11/18/2024 (Approximate), Ex cristiano: 11/18/2025[facility] Work Phone: Comment on above:Expected: 11/18/2024 (Approximate), Expires: 11/18/2025Start: 11-18-2024 End: 01-30-0046Tbywcat encounter procedureNOMS NB ORTHOComment on above:Arrived Start: 10-05-2024 End: 02-48-0744Hwmzcgq encounter /11/2025 10:00 AM EDT Office Visit [facility] [address] [facility] [place] [address] Harley Arciniega DO [address] [place] [address] NOMRadha VALDEZ ORTHOStart: 09-29-2024 End: 41-83-6235Uczcwwh encounter procedureNOMS NB OPHTComment on above:Arrived Start: 07-09-2024 End: 76-87-3576Bxkilql encounter procedureNOMS NB OPHTComment on above:Arrived Start: 07-06-2024 End: 24-52-4513Orhiizy encounter zygzdnyxg19/10/2024 8:45 AM EST Office Visit [facility] [address] [place] [id number] Clay Torres, DO [address] [place] [address] [facility] NB OPHTStart: 07-05-2024 End: 00-48-4039Dxqkolv encounter veulhgpkm59/09/2024 10:00 AM EST Office Visit [facility] [address] [place] [address] Syl Villalba, GORDON [address] [place] [address] ArrivedNOMS CI ORTHOPAEDICSComment on above:ArrivedStart: 06-15-2024 End: 59-84-4709Irctzhb encounter procedureNOMS CI ORTHOPAEDICSComment on above: Arthritis of right kneeStart: 06-08-2024 End: 34-06-2544Lytwezv encounter aregnphpw68/12/2024 10:00 AM EST Office Visit [facility] [address] [place] [address] Adriana Flores, [address] [place] [address] [facility] ORTHOPAEDICSStart: 06-01-2024 End: 14-55-9760Jcuohsh encounter procedureNOMS CI ORTHOPAEDICSComment on above: Chronic pain of right kneeStart: 04-14-2024 End: 38-82-2794Xuxkhub encounter wdqqudncm90/18/2024 8:30 AM EDT Office Visit [facility] [address] [place] [address] Clay Torres, DO [address] [place] [address] [facility] OPHTStart: 04-13-2024 End: 17-52-9057Djyahqm encounter hfgasritl31/17/2024 1:00 PM EDT Office Visit [facility] [address] [place] [address] Adriana Flores, [address] [place] [address] ArrivedLIFEPOINT HOSPITALS CI ORTHOPAEDICSComment on above:ArrivedStart: 03-31-2024 End: 84-42-5545Whedjnj encounter qkzncnlmu01/04/2024 8:30 AM EDT Office Visit [facility] [address] [place] [address] Syl Villalba, 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 [address] [place] [address] Chronic pain of right knee (Primary Dx); Arthritis of right kneeNOMS CI ORTHOPAEDICSComment on above:Chronic pain of right knee (Primary Dx); Arthritis of right kneeStart: 77-71-9440Pofprptqa [facility] Start: 12-31-2023 End: 61-60-7589Gtnqjfy encounter qusobdgdl71/05/2024 8:00 AM EDT Procedure visit [facility] [address] [place] [phone] Mitch Jett DO [address] [place], [place] [id number] [facility] General SurgeryStart: 76-48-8097Pjahhis [facility] Work Phone: Start: 22-84-8820QZDJK-19 Vaccine ( season) COVID-19 Vaccine ( season)[facility] SystemStart: 2014 Fall Risk ScreeningFall Risk ScreeningKettering Healthca Health SystemStart: 1968 DTaP,Tdap and Td Vaccines (1 - Tdap)DTaP,Tdap and Td Vaccines (1 - Tdap) [facility] SystemStart: 51-42-5730Sfoep BMI Follow Up PlanAdult BMI Follow Up PlanProCleveland Clinic SystemStart: 52-61-4620Admmmokmvz ScreeningDepression ScreeningProMercy Health St. Anne Hospitaltart: 77-86-1109DCpX/Tdap/Td Vaccines (1 - Tdap)DTaP/Tdap/Td Vaccines (1 - Tdap)[facility] HealthcareStart: 1950Medicare Annual Wellness VisitMedicare Annual Wellness VisitProCleveland Clinic SystemStart: 92-12-3311Iexxzabxo for malignant neoplasm of colonNOAL HealthcareStart: 26-26-2188Pbfygie CounselingTobacco CounselingLouis Stokes [facility] End: 97-98-9175WlampoivekuTsbvccujchw GI Routine Rectal bleeding 1 Occurrences starting 12/05/2023 until 12/04/2024[facility] Work Phone: Comment on above:1 Occurrences starting 12/05/2023 until 12/04/2024Patient referralCent[place] Work Phone: [place] [facility] Immunizations Immunization DateImmunizationNotesCare JgiypskhFpnzdtoe82-76-3643yydoizkqt virus vaccine, unspecified formulationClay Torres DO Work Phone: [facility] CenterScbryzxoud27-24-7049hqdjzk vaccine recombinant Ramila Pradhan [facility]09-26-2023influenza virus vaccine, unspecified formulation[facility]09-26-2023influenza, high dose seasonal, preservative-freeAlden Wheeler Other [employer] [employer] Other [id number] vaccine recombinantAlden Wheeler Other [facility]10-31-2022influenza virus vaccine, split virus (incl. purified surface antigen)Alden Wheeler Other [facility] [employer] Other [id number] virus vaccine, unspecified formulation[facility]12-04-2021SARS-CoV-2 (COVID-19) Ad26 vaccine, recombinantKathy Lue [facility] HospitalComsurgeons choice medical [facility] on above:Result Comment: 2022-05-01: LUU6592-60-3233swohiyioo virus vaccine, split virus (incl. purified surface antigen)Alden Wheeler Other [facility] [employer] Other 10970184-43-7316uexuhipzt virus vaccine, unspecified formulationKathy Lue [facility]03-05-2021COVID-19 vaccine, vector-nr, rS-Ad26, PF, 0.5 mL; Translations: [Susana COVID-19 Vaccine]Ramila Lue [facility] comcoym on above:Reason for Medication: Prophylaxis 43-23-9173oytopkkho virus vaccine, split virus (incl. purified surface antigen) Alden Wheeler Other [facility] [employer] Other 10937168-80-3667ubrbttagy virus vaccine, unspecified formulationKathy Lue [facility]10-22-2019influenza virus vaccine, split virus (incl. purified surface antigen)Alden Wheeler Other [facility] [employer] Other 10592571-17-4036tgkplfait virus vaccine, unspecified formulation[facility]10-10-2018influenza virus vaccine, split virus (incl. purified surface antigen)Alden Wheeler Other [phone] Other 10419219-57-2101gvkgqmexf virus vaccine, unspecified formulationKathy Lue [facility]09-28-2017influenza virus vaccine, split virus (incl. purified surface antigen)Alden Wheeler Other [place] [employer] Other 09402763-77-3819iyqqhqnig virus vaccine, unspecified formulationKathy Lue [facility]09-05-2017influenza virus vaccine, unspecified formulationKathy Lue [facility]11-01-2016pneumococcal polysaccharide vaccine, 23 valentKathy Lue [facility]09-26-2016influenza virus vaccine, split virus (incl. purified surface antigen)Alden Wheeler Other [employer] Other 0451533-68-6853fbfxnletb virus vaccine, unspecified formulationKathy Lue [facility]09-26-2016pneumococcal conjugate vaccine, 13 valentKathy Lue [facility] Systemue10-02-2015influenza virus vaccine, split virus (incl. purified surface antigen)Alden Wheeler Other [employer] Other 10992706-03-0863pdfvlvqoi virus vaccine, unspecified formulationSelect [facility]09-23-2015pneumococcal conjugate vaccine, 13 valentBenmeseret Wheeler Other [facility] Payers DatePayer CategoryPayerPolicy [id number] 67-48-0717Fibmpnn Health Insurance [id number]45.882767.17816-90-8228Nnrvvyq 1.2.840.695776.1.13.693.2.7.3.749[id number] Medicare1.2.840.8353[id number] 1960Medicare [id number] 2.16.840.3.067369.13474473-06-2124Pdoa-wql99930049971-13-6147Jzwbgil [id number] 2.16840.1.905106.3.579.2.64780-11-1258Hkbfqhb [id number] 2.16840.1.827216.3.579.[id number] 2.16840.1.366452.3.579.2.03207-31-4420Kqqurlr4677800 2.16840.1.325292.3.579.2.60480-82-5535Smjiyyc7102724 2.16840.1.851125.3.579.2.31826-55-7020Rezeeog0673813 2.16.840.1.607792.3.579.2.51577-92-9592Dukgnim9624824 2.16.840.1.071313.3.579.2.77365-86-1657Exvnjul6224201 2.16840.1.944791.3.579.2.90591-87-7532Gjidvip0898834 2.16840.1.310396.3.579.2.85805-69-6608Yiiyvtd1962098 2.840.1.089096.3.579.2.77639-34-2992Ysovzkx39021159 2.16840.1.532656.3.579.2.165988-08-2999Zfljkim91028838 2.0.1.318625.3.579.2.33877-41-5694Wqxjewg26279572 2.0.1.348348.3.579.2.36131-04-9227Nmemtbr20772676 2.0.1.784267.3.579.2.55[id number] 2.0.1.171629.3.579.2.85564-79-2579Vxafqwv83256325 2.0.1.229636.3.579.2.76265-78-8014Neqjkys75885417 2.0.1.468660.3.579.2.439224-94-3913Dpbflhr52283608 2..1.952157.3.579.2.605082-95-2182Grcgxlg11181588 2.0.1.463568.3.579.2.967455-60-8129Tzmzvfb74709120 2.0.1.603323.3.579.2.231438-71-9369Xofyicf59984301 2.840.1.027375.3.579.2.431597-03-8765Spsncdx70989987 2.840.1.729546.3.579.2.818446-83-6229Dycdqlb57719677 2.16.840.1.649773.3.579.2.584134-86-7380Entogrh4981927 2.16.840.1.147304.3.579.2.041623-42-1356Dejmjiy1789450 2.16840.1.538188.3.579.2.352044-88-0198Jlqlfqy3989639 2.16840.1.067613.3.579.2.268538-03-2113Pwhemju7561551 2.16840.1.422427.3.579.2.859453-60-8027Wjnnsaq1584134 2.16840.1.120075.3.579.2.707798-39-4846Wihmafb0374230 2.16840.1.975683.3.579.2.994666-73-1592Gvoklgp6007877 2.16840.1.857892.3.579.2.549615-19-9137Zijioff7769902 2.16840.1.534175.3.579.2.777246-20-8440Flqfzlm4261142 2.16840.1.878172.3.579.2.175820-07-4943Vductnx4546315 2.840.1.348451.3.579.2.639217-57-7446Cyyhmzz1456486 2.16840.1.452593.3.579.2.364401-30-2695Sqoiwxj9918929 2.16840.1.148715.3.579.2.712292-34-0911Ostzsul2241589 2.16840.1.611614.3.579.2.502479-35-6431Tbtszbp8226327 2.16840.1.396864.3.579.2.190963-86-3196Cprkaaq2717942 2.16.840.1.482216.3.579.2.456345-88-1024Fkemvhn35755681 2.16.840.1.791223.3.579.2.54015-04-6228Cinpdzk85102425 2.16.840.1.788041.3.579.2.04588-95-8313Dmprkbj62452700 2.16.840.1.080561.3.579.2.50068-23-3725Trvlfpi56088185 2.16.840.1.657506.3.579.2.078Tdyfgot4249655 2.16.840.1.476553.3.579.2.593Unknown [id number] 2.16.840.1.655258.3.579.2.593 Social History DateTypeDetailFacilityStart: 12-12-2021 End: 54-11-9449Xngulnd smoking statusEx-smoker (finding)[facility] start: 06-06-2023 End: 83-26-1556Joi Assigned At [facility] start: 12-52-0395Stxufxg smoking statusNeverExecutive [facility] of [facility] Hospitaltart: 77-12-5819Hpu Assigned At [facility] End: 83-83-6379Hqzqnfd of tobacco useCurrent smokerNOMS Healthcare End: 02-77-5699Cjxdond of tobacco useCigarette SmokerNOMS HealthcareStart: 02-10-2023 End: 46-17-5347Ghpfkah use and exposureSmokeless tobacco non-userNOMS Healthcare Start: 04-14-2024 End: 43-98-5267Oybbairww beverage intakeCurrent drinker of alcohol (finding)[facility] HealthcareStart: 06-06-2023 End: 00-95-1587Gzkszcr of Social functionNOMS HealthcareHow often to you have a drink containing alcohol?2-4 times a monthNOMS HealthcareHow many standard drinks containing alcohol do you have on a typical day?3 or 4NOMS HealthcareHow often do you have 6 or more drinks on 1 occasion?NeverNOMS HealthcareStart: 71-29-1933Urjicgc CommentLast smoked: 20 yearsNOMS HealthcareStart: 01-29-2023 Alcohol Comment3-6N[facility]S HealthcareStart: 42-08-1021Cgy assigned at birthNot on fileNOAL HealthcareTobacco smoking status NHISUnknown if ever smokedCenterville Work Phone: Start: 02-28-2020 End: 39-26-6208VogMkbgfk (finding)[facility] Hospitaltart: 36-59-9552Diffwhk use and exposureUser of smokeless tobaccoProMedica Health SystemStart: 34-75-6570Ewddafu CommentsociallyProMedica Health SystemStart: 58-87-1684Jgzptbr CommentOccasional wine and alcoholNOAL HealthcareSexual OrientationDayton Children'S Hospital Medical Equipment Procedure CodeEquipment CodeEquipment Original TextEquipment IdentifierDates {01}[id number] FDAStart: 03-21-2020 {01}[id number]{17}[id number]{21}[id number] FDAStart: 16-19-6029UDNW TOTAL ROBOT ARTHROPLASTY Jung BORGES, Harley A 12/01/24 Unknown Knee LFDAStart: 11-42-2010OLVL TOTAL ROBOT ARTHROPLASTY Jung DO, Harley A 12/01/24 Unknown Knee LFDAStart: 65-36-3311ZLRT TOTAL ROBOT ARTHROPLASTY Jung DO, Harley A 12/01/24 Unknown Knee L FDAStart: 03-59-6743ZIRS TOTAL ROBOT ARTHROPLASTY Jung DO, Harley A 12/01/24 Unknown Knee LFDAStart: 44-31-9526YIQP TOTAL ROBOT ARTHROPLASTY Harley Arciniega DO 12/01/24 Unknown Knee LFDAStart: 25-49-3047BMAQ TOTAL ROBOT ARTHROPLASTY Harley Arciniega DO 12/01/24 Unknown Knee LFDAStart: 55-11-3341TJWH TOTAL ROBOT ARTHROPLASTY Harley Arciniega DO 12/01/24 Unknown Knee LFDAStart: 13-40-9616XFKM TOTAL ROBOT ARTHROPLASTY Harley Arciniega DO 12/01/24 Unknown Knee LFDAStart: 15-15-4841TLLB TOTAL ROBOT ARTHROPLASTY Harley Arciinega DO 12/01/24 Unknown Knee L FDAStart: 92-82-1128PUYX TOTAL ROBOT ARTHROPLASTY Harley Arciniega DO 12/01/24 Unknown Knee LFDAStart: 74-52-8568JUIA TOTAL ROBOT ARTHROPLASTY Harley Arciniega DO 12/01/24 Unknown Knee LFDAStart: 00-32-5475GJNM TOTAL ROBOT ARTHROPLASTY Harley Arciniega DO 12/01/24 Unknown Knee LFDAStart: 12-01-2024 Functional Status TccvUuszwvtrhdHkmzrdOoqdaoqh29-47-1042Mniiffylmx StatusNoDayton Children'S Hospital10-16-2024Functional StatusN/AExec[facility]10-11-2023Functional StatusN/A[facility]10-05-2022Functional StatusN/A[facility] Clinical Notes 12-12-2021 to 06-01-2025 Note Date & ZdgeMlwqVgxxczza25-42-8793 Hospital Discharge instructions Patient Education 06/01/2025 08:52:12 [...] including vitamins, herbs, eye drops, creams, and atcm-jte-yjflyfr medicines. Any problems you or family members [...] provider tells you to take them. Taking kxac-osy-dfjnzyu medicines, vitamins, herbs, and supplements. General instructions [...] Follow these instructions at home: Medicines Take qupd-fan-tlqgcrq and prescription medicines only as told by [...] provider. Document Revised: 01/18/2022 Document Reviewed: 01/18/2022 [employer] Patient Education 2023 [employer]Parent[employer]. 06/01/2025 08:52:08 Dietary Guidelines to Help Prevent [...] include: ?8 oz (237 mL) of milk, etebqbk-ebglvmcxqzvk-jjcap milk, and calcium- fortifiedfruit juice. Calcium-fortified means [...] ?Spinach (cooked), rhubarb, beets, sweet potatoes, and Taiwanese chard. ?Peanuts. ?Potato chips, pitcairn islander fries, and baked potatoes with skin on. ?Nuts and nut products. ?Chocolate. If you regularly take a diuretic medicine, make sure to eat at least 1 or 2 servings of fruits or vegetables that are high in potassium each day. These include: ?Avocado. ?Banana. ?Salineno, prune, carrot, or tomato juice. ?Baked potato. [...] magnesium, fish oil, or vitamin B6. Take hzzp-bzg-iysjqfk and prescription medicines only as told by [...] Casseroles. Pizza. Lasagna. Frozen meals. Potato chips. [place] Islander fries. The items listed above may not [...] provider. Document Revised: 10/24/2022 Document Reviewed: 10/24/2022 [employer] Patient Education 2023 DataParenting. Follow Up Care 05/12/2024 11:01:42 With:Lorne GONZALEZ, TEDDY Gonzalez, URO Address: When: Unknown [facility] 11-05-2025 NotePatient Education Nephrology Dietary Guidelines to [...] ? 8 oz (237 mL) of milk, uesoqye-ekvwjfeacfih-hihxt milk, and calcium- fortifiedfruit juice. Calcium-fortified means [...] Spinach (cooked), rhubarb, beets, sweet potatoes, and Taiwanese chard. ? Peanuts. ? Potato chips, pitcairn islander fries, and baked potatoes with skin on. ? Nuts and nut products. ? Chocolate. ??? If you regularly take a diuretic medicine, make sure to eat at least 1 or 2 servings of fruits or vegetables that are high in potassium each day. These include: ? Avocado. ? Banana. ? Salineno, prune, carrot, or tomato juice. ? Baked [...] fish oil, or vitamin B6. ??? Take nrac-jps-wxqehrf and prescription medicines only as told by your health (more content not included)...[facility]09-18-2025 History of Present illness Narrative* MAE Koch [...] from the original note were not included. @[facility]ENTERDATE@ [place] Amy Delores is a 75 y.o. female [...] the right knee prior to departure for [facility]. Leaving for [place] in early June. SUBJECTIVE: MEDICATIONS: Current Outpatient [...] arthroscopy LASIK ORIF ANKLE FRACTURE Right 2003 CO GUM GRAFT 2 peridontal sx TOTAL KNEE ARTHROPLASTY Left 12/01/2024 [facility] W[facility]ST [facility] SURGERY Right FAMILY HISTORY: [...] note was created using voice recognition through [employer]. documented in this encounterChildren's Mercy HospitalRuxhunaiet52-05-5587 History of Present illness Narrative* Clay Torres [...] sure Blepharitis BRVO (branch retinal vein occlusion) ([facility]) Cataract Dry eyes DVT (deep venous thrombosis) ([facility]) 03/10/2024 LT leg Epiretinal membrane (ERM) [...] (OU) at bedtime. (Had been seen in [place] winter 2024 with intraocular pressure (IOP) of 9 both eyes (OU). - R/B/A/E provided for SLT. documented in this encounterChildren's Mercy HospitalFbkbwnvzli72-86-6304 History of Present illness Narrative* Clay Torres [...] see ortho next week. documented in this encounterChildren's Mercy HospitalWivpkzlmqo18-51-2086 Hospital Discharge instructions Patient Education 02/25/2025 15:56:46 [...] nerve stimulation). ?For women, using a medical chemist to prevent urine leaks. This is a [...] right after experiencing incontinence. General instructions Take ugmn-ode-wtogvaf and prescription medicines only as told by [...] important. Where to find more information National [place] of Diabetes and Digestive and Kidney Diseases: www.niddk.nih.gov [place] [employer]: www.urologyhealth.org Contact a health care [...] provider. Document Revised: 02/16/2021 Document Reviewed: 02/16/2021 [employer] Patient Education 2023 [employer] 02/25/2025 15:56:44 Overactive Bladder, Adult Overactive [...] your health care provider. General instructions Take wjgo-bxk-smlvyga and prescription medicines only as told by [...] provider. Document Revised: 04/02/2021 Document Reviewed: 04/02/2021 [employer] Patient Education 2023 DataParenting. 02/25/2025 15:56:44 Hematuria, Adult Hematuria, Adult Hematuria [...] Follow these instructions at home: Medicines Take yakw-mhs-zinfvst and prescription medicines only as told by [...] or the blood stops without treatment. Take eqrm-tbz-jgqiobj and prescription medicines only as told by your health care provider. Drink enough fluid to keep your urine pale yellow. This information is not intended to replace advice given to you by your health care provider. Make sure you discuss any questions you have with your health care provider. Document Revised: 03/14/2021 Document Reviewed: 03/14/2021 [employer] Patient Education 2023 DataParenting. 02/25/2025 15:56:43 Dietary Guidelines to Help Prevent [...] include: ?8 oz (237 mL) of milk, gmjnlga-trgfkszaftmb-sdyoh milk, and calcium- fortifiedfruit juice. Calcium-fortified means [...] ?Spinach (cooked), rhubarb, beets, sweet potatoes, and Taiwanese chard. ?Peanuts. ?Potato chips, pitcairn islander fries, and baked potatoes with skin on. ?Nuts and nut products. ?Chocolate. If you regularly take a diuretic medicine, make sure to eat at least 1 or 2 servings of fruits or vegetables that are high in potassium each day. These include: ?Avocado. ?Banana. ?Salineno, prune, carrot, or tomato juice. ?Baked potato. [...] magnesium, fish oil, or vitamin B6. Take djti-qgg-guifysr and prescription medicines only as told by [...] Casseroles. Pizza. Lasagna. Frozen meals. Potato chips. [place] fries. The items listed above may not [...] provider. Document Revised: 10/24/2022 Document Reviewed: 10/24/2022 [employer] Patient Education 2023 [employer] Follow Up Care 02/25/2025 09:27:22 With:Lorne GONZALEZ, TEDDY Gonzalez, URO Address: [facility] Jayce Quinonez[address] [address]- When: Unknown Comments:as scheduled apr 2025 [facility] 08-01-2025 NotePatient Education Nephrology Dietary Guidelines to [...] ? 8 oz (237 mL) of milk, wujfoud-visqjqpgjjxi-yoyjg milk, and calcium- fortifiedfruit juice. Calcium-fortified means [...] Spinach (cooked), rhubarb, beets, sweet potatoes, and Taiwanese chard. ? Peanuts. ? Potato chips, pitcairn islander fries, and baked potatoes with skin on. ? Nuts and nut products. ? Chocolate. ??? If you regularly take a diuretic medicine, make sure to eat at least 1 or 2 servings of fruits or vegetables that are high in potassium each day. These include: ? Avocado. ? Banana. ? Salineno, prune, carrot, or tomato juice. ? Baked [...] fish oil, or vitamin B6. ??? Take jnva-lfu-gdudkqw and prescription medicines only as told by your health (more content not included)...[facility]06-19-2025 History of Present illness Narrative* MAE Koch [...] treatment. She is planning a trip to [facility] in March 2025. SUBJECTIVE: MEDICATIONS: Current Outpatient [...] arthroscopy LASIK ORIF ANKLE FRACTURE Right 2003 CO GUM GRAFT 2 peridontal sx TOTAL KNEE ARTHROPLASTY Left 12/01/2024 [facility] WRIST FRACTURE SURGERY Right REVIEW OF SYMPTOMS: [...] note was created using voice recognition through [employer]. documented in this encounterChildren's Mercy HospitalEclduvijox59-39-0214 History of Present illness Narrative* Clay Torres [...] both eyes (OU)) documented in this encounterNOMS Kuksigajes79-32-1809 History of Present illness Narrative* Harley Arciniega, [...] to start outpatient therapy next week in [place]. Her current medication regimen includes Eliquis, which [...] 300 mg, Oral, 3 times daily HYDROcodone-acetaminophen ([place]) 5-325 MG tablet 1-2 tablets, Oral, Every [...] arthroscopy LASIK ORIF ANKLE FRACTURE Right 2003 CO GUM GRAFT 2 peridontal sx TOTAL KNEE ARTHROPLASTY Left 12/01/2024 [facility] WRIST FRACTURE SURGERY Right REVIEW OF SYMPTOMS: [...] note was created using voice recognition through [employer]. documented in this encounterChildren's Mercy HospitalIitwgtxlll24-50-8168 NoteProgress Note-Physician Patient: DONNA ESTRELLA Age: 74 years Sex: Female : 1950 Associated Diagnoses: None Author: Adriana Boone MD Postoperative Information Postoperative disposition: Postoperative disposition: To PACU. Optimetrix number: Optimetrix number [id number]. Anesthetic utilized: General. Health Status Allergies: Allergic [...] meets criteria ( From PACU to floor ).[facility] HospitalComment on above:Result Comment: Electronically Signed By: Adriana Boone MD\.br\Date and Time Signed: 12/05/24 10:38 [id number] Evaluation + Plan noteExtracted from:Title:Discharge Summary Author:Harley [...] Daily, 0 Refill(s) omega-3 polyunsaturated fatty acids (Asuragen's Bounty Red Krill Oil 500 mg oral [...] list: All Problems Anemia / SNOMED CT 344428302 / Confirmed Arthritis / SNOMED CT 8066890 / Confirmed Asymptomatic microscopic hematuria / SNOMED CT 1645901299 / Confirmed BMI 36.0-36.9,adult / SNOMED CT 533252669 / Confirmed Former smoker / SNOMED CT 48706396 / Confirmed Kidney stones / SNOMED CT 812803718 / Confirmed Mixed incontinence / SNOMED CT 33285320 / Confirmed Nocturia / SNOMED CT 699163365 / Confirmed Renal cysts, acquired, bilateral / SNOMED CT 596721714 / Confirmed Ureteral stone / SNOMED CT 41370139 / Confirmed Ureteral stone with hydronephrosis / SNOMED CT 6051421375 / Confirmed, Active Problems (11) Anemia Arthritis [...] Cataract extraction and insertion of intraocular lens (7765080796) on 2020 at 70 Years. Cataract extraction and insertion of intraocular lens (6917219872) on 03/21/2020 at 69 Years. Cholecystectomy (06592579). Procedure on knee (949082354). Sclerotherapy of vein of lower limbs (1046485278). Comments: 11/18/2024 10:38 EDT - Adams ALMANZA, Keyonna Morocho 2022 Open reduction and internal fixation of right ankle fracture (159799897). CRPP (closed reduction and percutaneous pinning) of fracture of right wrist (7640210977). delivery x2 (7439348245). Social History Social & Psychosocial Habits Alcohol [...] (last 24 hrs) Last Charted Heart Rate Gnzednujl15 bpm (DECEMBER 01 06:) TNH317 mmHg (DECEMBER 01:03) DBP81 mmHg (DECEMBER 01:) Airway: Mallampati classification: II (soft palate, fauces, uvula visible). Respiratory: Lungs are clear to auscultation, Respirations are non-labored, adequate air exchange. Cardiovascular: Regular rhythm, No murmur, no JVD or edema. Review / Management Results review: No qualifying data available . Plan [place] [employer] of Anesthesiologists (ASA) physical status classification: Class II. Anesthetic Preoperative Plan: Anesthesia. Regional Spinal, and adductor canal block.Addendum by Adriana Boone MD on December 01, 2024 10:25 EDTOK Future Appointments Appointment Date:05/18/2025 08:00:00 AM Scheduled Provider:Ramila Pradhan MD Location:[facility] Appointment Type:URO Office Visit Diagnostic Tests Pending * Path. 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 It is therefore advised not to drive until after yourfirst office visit following surgery. FOLLOW-UP OFFICE VISIT: Harley Arciniega DO [facility] [address] [place], [place] [id number] Reviewed: 12-17[facility]05-08-2025 NoteProgress Note-Physician Patient: DONNA ESTRELLA Age: [...] Diastolic Blood Pressure 80 mmHg SpO2 95 %[facility] HospitalComment on above:Result Comment: Electronically Signed By: Harley Arciniega DO\.br\Date and Time Signed: 12/02/24 07:43 [id number] NotePatient Education - Text [place] [facility] DISCHARGE INSTRUCTIONS: TOTAL KNEE [...] will continue at home, possibly with the family services assistant of Home Health Physical Therapy or [...] Driving too soon, 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 It is therefore advised not to drive until after yourfirst office visit following surgery. FOLLOW-UP OFFICE VISIT: Harley Arciniega, DO [facility] [address] [place] [address] Reviewed: 12-17[facility]05-07-2025 NoteInterdisciplinary Note - PT PT Evaluation completed with an AMPAC score of 18/24. Pt was able to perform bed mobility and transfer with Min A. Pt was able to ambulate a short distance art this time. Will follow daily. Will provide recommendations beginning on POD # 1 [facility]05-07-2025 NoteProgress Note-Physician Patient: DONNA ESTRELLA Age: [...] list: All Problems Anemia / SNOMED CT 079868224 / Confirmed Arthritis / SNOMED CT 8498915 / Confirmed Asymptomatic microscopic hematuria / SNOMED CT 5029717845 / Confirmed BMI 36.0-36.9,adult / SNOMED CT 742341135 / Confirmed Former smoker / SNOMED CT 08268818 / Confirmed Kidney stones / SNOMED CT 375550718 / Confirmed Mixed incontinence / SNOMED CT 83638135 / Confirmed Nocturia / SNOMED CT 695530929 / Confirmed Renal cysts, acquired, bilateral / SNOMED CT 456499149 / Confirmed Ureteral stone / SNOMED CT 13103422 / Confirmed Ureteral stone with hydronephrosis / SNOMED CT 6054446510 / Confirmed, Active Problems (11) Anemia Arthritis [...] Cataract extraction and insertion of intraocular lens (0630782426) on 2020 at 70 Years. Cataract extraction and insertion of intraocular lens (6815270529) on 03/21/2020 at 69 Years. Cholecystectomy (55099310). Procedure on knee (002953085). Sclerotherapy of vein of lower limbs (7250826403). 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 It is therefore advised not to drive until after yourfirst office visit following surgery. FOLLOW-UP OFFICE VISIT: Harley Arciniega, DO [facility] [address] [place], [place] [address] Reviewed: 12-17 Follow Up Care 10/14/2024 09:57:46 With:ALDEN WHEELER Address: [address] [place] [phone] Business (1) When: Unknown Comments:No need to see PCP at this time unless symptoms worsen. 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 It is therefore advised not to drive until after yourfirst office visit following surgery. FOLLOW-UP OFFICE VISIT: Harley Arciniega DO [facility] [address] [place] [address] Reviewed: 12-17[facility]04-24-2025 History of Present illness Narrative* Harley Arciniega [...] arthroscopy LASIK ORIF ANKLE FRACTURE Right 2003 CO GUM GRAFT 2 peridontal sx WRIST FRACTURE [...] with a left total knee arthroplasty with MapHazardly robotic arm assistance. The [employer] ([employer]) platform will be utilized. Anticipate greater than [...] note was created using voice recognition through [employer]rex[employer]. documented in this [facility]04-08-2025 History of Present illness Narrative* Clay Torres DO - 11/02/2024 1:06 PM EDT Images from the original note were not included. Assessment/Plan documented in this [facility]03-05-2025 History of Present illness Narrative* Clay Torres [...] eye (OS) BID. (Had been seen in [place] winter 2024 with intraocular pressure (IOP) of 9 both eyes (OU)) documented in this encounterChildren's Mercy [id number] History of Present illness Narrative* Clay Torres [...] both eyes (OU) BID. documented in this encounterChildren's Mercy [id number] History of Present illness Narrative* Clay Torres [...] cannot tolerate generic Latanoprost. documented in this encounterChildren's Mercy [id number] History of Present illness Narrative* Syl Villalba [...] injx 06/25/23, mobic prn, xrays RT knee [facility] 10/30/23. depo medrol injection 10/30/23, 02/16/24, [...] in a few days. documented in this [facility]12-06-2024 Telephone encounter Note* Telephone Encounter - SERGIO Arellano - 07/02/2024 8:23 AM EST Looks like a patient Abbi has been treating,, you can schedule with her for eval. [facility] Work Phone: 1(120) 631-700112-06-2024 Miscellaneous Notes* Telephone Encounter - SERGIO Arellano [...] if possible. Please advise. documented in this [facility]12-06-2024 Telephone encounter Note* Telephone Encounter - Ashley Looney - 07/02/2024 8:05 AM EST Patient called in stating that she saw on 06/15. She stated that what was done did not work. She would like to schedule for a steroid injection in her knee if possible. Please advise. [facility] [id number] History of Present illness Narrative* Adriana Flores [...] if she desires a referral to another youth care specialist we would be happy to make referral, she states she would like to continue her care here. documented in this [facility]11-12-2024 History of Present illness Narrative* Adriana Flores [...] given by the patient. documented in this [facility]11-05-2024 History of Present illness Narrative* Adriana Flores, [...] injx 06/25/23, mobic prn, xrays RT knee [facility] 10/30/23. depo medrol injection 10/30/23, 02/16/24, [...] vein occlusion) Cataract DVT (deep venous thrombosis) ([facility]) 03/10/2024 LT leg Epiretinal membrane (ERM) [...] if she desires a referral to another youth care specialist we would be happy to make referral, she states she would like to continue her care here. Ignacio Flores D.O. documented in this encounterChildren's Mercy HospitalPeamgbxkor84-97-7523 Hospital Discharge instructions Patient Education 05/12/2024 10:51:15 [...] including vitamins, herbs, eye drops, creams, and tehl-abr-pqgnkto medicines. Any problems you or family members [...] provider tells you to take them. Taking bnjr-uxj-xvedvvx medicines, vitamins, herbs, and supplements. Tests You [...] Follow these instructions at home: Medicines Take lvvy-ynu-jslbwvs and prescription medicines only as told by [...] provider. Document Revised: 03/27/2022 Document Reviewed: 02/23/2021 [employer] Patient Education 2023 DataParenting. 05/12/2024 10:39:08 Kegel Exercises Kegel Exercises Kegel [...] provider. Document Revised: 11/22/2021 Document Reviewed: 11/22/2021 [employer] Patient Education 2023 DataParenting. Follow Up Care 05/12/2023 11:08:20 With:Lorne GONZALEZ, Ramila Pascal, CLIFL, URO Address: [address] [place] [address] [place] [address] [phone] When: Unknown [facility] 09-18-2024 NoteRight Eye Reliability was good. Progression has been stable. Foveal threshold was normal. Findings include non-specific defects. Left Eye Reliability was good. Progression has been stable. Foveal threshold was normal. Findings include non-specific defects.[facility] HospitalKsbjaemrub07-99-0860 History of Present illness Narrative* Clay Torres, [...] month to see me. documented in this encounterChildren's Mercy HospitalCfidkktkur50-88-7961 History of Present illness Narrative* Adriana Flores [...] injx 06/25/23, mobic prn, xrays RT knee [facility] 10/30/23. depo medrol injection 10/30/23, 02/16/24, [...] vein occlusion) Cataract DVT (deep venous thrombosis) ([facility]) 03/10/2024 LT leg Epiretinal membrane (ERM) of left eye Osteopenia PVD (posterior vitreous detachment) Thalassemia ALLERGIES: Allergies Allergen Reactions Latex Rash VITALS: Visit Vitals Smoking Status Former PHYSICAL EXAM: Ortho Exam RIGHT KNEE ROM 20-95 Crepitus IMAGING: October 30, 2023 x-rays from the [facility] AP weight-bearing bilateral knees lateral and sunrise of the right knee demonstrate joint space narrowing in all 3 compartments with marginal osteophytes subchondral sclerosis. Medial compartment collapse of the ffqe-lw-lbez. Large osteophytes in the superior inferior poles [...] Dr. Flores/david Flores D.O. documented in this encounterChildren's Mercy HospitalBibhrlgcxg52-93-4841 History of Present illness Narrative* Syl Villalba, 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 - 03/31/2024 8:30 AM EDTAssociated Order(s): L [...] the past 1 month. documented in this encounterChildren's Mercy HospitalEvcjzoibap08-65-6416 Evaluation note* Diagnosis Onset Date Resolution Status Admit Date Chronic venous insufficiency acuteAugust 2023 10:00amDVT (deep venous thrombosis)resolvedAugust 2023 10:00amLeft leg swellingnoneactiveAugust 2023 10:00amChronic venous insufficiencyacuteJune 17, 2024 9:33amH/O deep venous thrombosisacute June 17, 2024 9:33amMedicare annual wellness visit, subsequentacute June 17, 2024 9:33amNicotine dependence, cigarettes, in remissionacute June 17, 2024 9:33amScreening mammogram for breast canceracuteJune 17, 2024 9:33am [place] Work Phone: 1(232) 971-733105-10-2024 History of Present illness Narrative* Rosmery Guillermo, LORRY WEIGHER-REHAB SPEC - 12/05/2023 12:00 PM EDT Images from [...] last colonoscopy was in [address] at [facility] with [address]. Jett. It revealed hemorrhoids, [...] Colon polyp COPD (chronic obstructive pulmonary disease) ([facility]) Hearing loss bilateral hearing aids Visual [...] Take by mouth daily., Disp: , Rfl: mwcyu-6f-cng-epa-fish oil-D3 (VITAMIN-D + OMEGA-3) 350 mg-400 mg- [...] as needed., Disp: , Rfl: peg 3350-sod sulf,bbfg-jql-xqz 178.7-7.3-0.5 gram recon soln, Take 1 kit [...] results found for: INR , PROTIME Assessment Dnona Estrella is a 73 y.o.female with rectal [...] patient/family/caregiver Referring and communicating with other health interior plant caretaker Rectal bleeding [K62.5] LEONARDA OHARA [facility] Physicians General Surgery [facility]/[place] This note was created with the assistance of a speech recognition program. While intending to generate a timely document that accurately reflects the content of the visit, no guarantee can be provided that every grammatical or spelling mistake has been or will be identified or corrected. Thank you for your understanding. LEONARDA Ohara 12/05/23 3709 documented in this encounterLouis [facility] Hospital Discharge instructions Patient Education [...] include: ?8 oz (237 mL) of milk, uqfxeqj-kgookdujvdsr-bjqvm milk, and calcium- fortifiedfruit juice. Calcium-fortified means [...] ?Spinach (cooked), rhubarb, beets, sweet potatoes, and Taiwanese chard. ?Peanuts. ?Potato chips, pitcairn islander fries, and baked potatoes with skin on. ?Nuts and nut products. ?Chocolate. If you regularly take a diuretic medicine, make sure to eat at least 1 or 2 servings of fruits or vegetables that are high in potassium each day. These include: ?Avocado. ?Banana. ?Salineno, prune, carrot, or tomato juice. ?Baked potato. [...] magnesium, fish oil, or vitamin B6. Take zehp-udo-cbkezyb and prescription medicines only as told by [...] Casseroles. Pizza. Lasagna. Frozen meals. Potato chips. [place] Islander fries. The items listed above may not [...] provider. Document Revised: 03/25/2022 Document Reviewed: 03/25/2022 [employer] [facility] Patient Education 2022 DataParenting. Follow Up Care 05/01/2022 08:32:42 With:Lorne GONZALEZ, Ramila Pascal, URL, URO Address: When: Unknown Comments:Sched Lt Ureteroscopy/LaserLitho [facility] [employer] 09-26-2023 Evaluation note* Encounter Date Diagnosis Assessment Notes Treatment Notes Treatment Clinical Notes Mar, Acute left-sided low back pain w ithout sciatica (ICD-10 - M54.50) Push fluids ER or call office w/ recurrent flank pain or hematuria Mar,ross hematuria (ICD-10 - R31.0)Push fluids CT abd/pelvis to r/o renal tumor, renal stone, hydronephrosis f/u for hematuria evaluation [place] 06-05-2023 Evaluation note* Encounter Date Diagnosis Assessment Notes Treatment Notes Treatment Clinical Notes Dec, Cervical spondylosis (ICD-10 - M 47.812) ROM exercises, ice/heat and rest. Begin NSAIDs and muscles relaxant at night. PT if no improvement. XR Dec,Torticollis (ICD-10 - M43.6)Heat/ice and NSAIDs/muscle relaxant. PT if no improvement Dec,ry mouth (ICD-10 - R68.2)Push water, lozenges [facility] 04-07-2023 Evaluation note* Encounter Date Diagnosis [...] Tylenol and Motrin. ROM exercises, Voltaren Gel [facility] [facility] 10-05-2022 Hospital Discharge instructions Patient Education [...] 06/30/2013 Document Revised: 03/03/2019 Document Reviewed: 03/03/2019 [employer] [facility] Patient Education 2020 DataParenting. 05/01/2022 08:20:59 Calorie Counting for Weight Loss [...] 07/14/2006 Document Revised: 04/02/2019 Document Reviewed: 06/13/2017 [facility] Patient Education 2020 FlowPlay Follow Up Care 12/12/2021 12:13:24 With:Lorne GONZALEZ, TEDDY Gonzalez, URO Address: When:Within 1 Year(s) [facility] 05-18-2022 Hospital Discharge instructions Patient Education [...] Follow these instructions at home: Medicines Take znmd-hqj-emddvyo and prescription medicines only as told by [...] or the blood stops without treatment. Take lksx-nbn-hxwfxzd and prescription medicines only as told by your health care provider. Drink enough fluid to keep your urine clear or pale yellow. This information is not intended to replace advice given to you by your health care provider. Make sure you discuss any questions you have with your health care provider. Document Released: 07/14/2006 Document Revised: 12/08/2019 Document Reviewed: 08/16/2017 [employer] Patient Education 2020 DataParenting. Follow Up Care 06/06/2021 10:30:38 With:Lorne GONZAELZ, TEDDY Gonzalez, URO Address: When:3 months [facility] evaluation + Plan note Future Appointments Appointment Date:12/21/2021 07:30:00 AM Scheduled Provider: Location:.PH[place]ICAL [place] Appointment Type:PT Pelvic Floor/UI Eval (FT) Appointment Date:05/01/2022 08:00:00 AM Scheduled Provider:Ramila Pradhan MD Location:[facility] Appointment Type:URO Office Visit [facility] evaluation + Plan note Future Appointments Appointment Date:12/21/2021 07:30:00 AM Scheduled Provider: Location:.[place]ICAL [place] Appointment Type:PT Pelvic Floor/UI Eval (FT) Appointment Date:05/01/2022 08:00:00 AM Scheduled Provider:Ramila Pradhan MD Location:[facility] Appointment Type:URO Office Visit Diagnostic Tests Pending * Urine [facility] Future Appointments Appointment [...] Date:05/01/2022 08:00:00 AM Scheduled Provider:Ramila Pradhan MD Location:[facility] Appointment Type:URO Office Visit [facility] evaluation + Plan note Future Appointments Appointment Date:05/07/2023 08:00:00 AM Scheduled Provider:Ramila Pradhan MD Location:[facility] Appointment Type:URO Office Visit [facility] evaluation + Plan note Future Appointments Appointment Date:05/18/2025 08:00:00 AM Scheduled Provider:Ramila Pradhan MD Location:[facility] Appointment Type:URO Office Visit [facility] evaluation + Plan note Future Appointments Appointment Date:05/18/2025 08:00:00 AM Scheduled Provider:Ramila Pradhan MD Location:[facility] Appointment Type:URO Office Visit Diagnostic Tests Pending * Urine Culture 05/12/24 [facility] evaluation + Plan note Future Appointments Appointment Date:12/01/2024 07:30:00 AM Scheduled Provider: Location:[facility] Appointment Type:Surgery FT Appointment Date:05/18/2025 08:00:00 AM Scheduled Provider:Ramila Pradhan MD Location:[facility] Appointment Type:URO Office Visit Diagnostic Tests Pending * Urine Culture 11/18/24 [facility] evaluation + Plan note Future Appointments Appointment Date:05/11/2025 08:15:00 AM Scheduled Provider:Ramila Pradhan MD Location:[facility] Appointment Type:URO Office Visit [facility] [place] Evaluation noteNo InformationNort Babelgum Other evalurjeku noteNo assessment information available [place] Work Phone: evaluqlvew note* Diagnosis Onset Date Resolution Status Rectal bleeding acuteTrapezius muscle strainnoneactiveNeck painnonctive [place] Work Phone: evaluation note* Diagnosis Onset Date Resolution Status Chronic venous insufficiency acutePrimary osteoarthritis of both kneesacuteLeft leg swellingnoneactive [place] Work Phone: Evaluation note* Diagnosis Onset Date Resolution Status Chronic venous insufficiency acutePrimary osteoarthritis of both kneesacuteLeft leg swellingnoneactiveChronic venous insufficiencyacuteDVT (deep venous thrombosis)acutePrimary osteoarthritis of both kneesacuteLeft leg swellingnoneactive [place] Work Phone: Evaluation note* Diagnosis Arthritis of [...] rectum and anus documented in this encounter [facility]* Diagnosis Rectal bleeding Hemorrhage of rectum and anus documented in this encounter [facility] SystemEvaluation note* Diagnosis 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, mild stage documented in this encounter [facility] HealthcareEvaluation [facility]* Diagnosis Glaucoma suspect of both eyes- Primary Unspecified preglaucoma documented [facility]* Diagnosis Pre-op testing Unspecified pre-operative examination documented in this encounter [facility] HealthcareEvaluation note* Diagnosis Onset Date Resolution Status Admit Date Anemia acuteApril 2024 11:10amChronic venous insufficiencyacuteApril 2024 11:10amH/O deep venous thrombosisacuteApril 2024 11:10amPrimary osteoarthritis of left kneeacuteApril 2024 11:10amPreop exam for internal medicinenoneactiveApril 2024 11:10am [place] Work Phone: Evaluation note* Diagnosis Primary osteoarthritis of left knee documented in this encounter [facility] HealthcareEvaluation note* Diagnosis Status post total left knee replacement- Primary documented in this encounter [facility] HealthcareEvaluation note* Diagnosis Epiretinal membrane (ERM) of left eye- Primary 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, mild stage Dry eyes, bilateral 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 edema Blepharitis of upper and lower eyelids of both eyes, unspecified type documented in this encounter [facility] HealthcareEvaluation note* Diagnosis Status post total left [...] drugs, mild stage documented in this encounter [facility] HealthcareEvaluation note* Diagnosis 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 Hospital Discharge instructions No data available for this section [facility] Discharge instructionsAmbulatory Orders* Referral to General Surgery Location: None [facility] Work Phone: InstructionsNot on filedocumented in this encounter [facility] SystemInstructionsNot on filedocumented in this encounter [facility] SystemProgress note No data available for this section [facility] reason for visit Narrative* Consultation (Routine) - ClosedSpecialtyDiagnoses / ProceduresReferred By ContactReferred To Contact Physical Therapy Diagnoses Primary osteoarthritis of left knee Procedures CO OFFICE/OUTPATIENT NEW HIGH MDM 60 MINUTES Harley Arciniega, [address] [place] [address] Phone: tel: fax: Shawn Wagoner, PT [address] [facility] [address] [place] [address] Phone: tel: fax: Referral IDStatusReasonStart DateExpiration DateVisits RequestedVisits [id number] Specialty Services Required / [facility] Summary [...] L Inj/Asp: L knee Apling, Syl Germain, 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 [address] [place] [address] Referral IDStatusReasonStart DateExpiration DateVisits RequestedVisits [id number] Additional Source Comments Care Team (unrecognized sect [...] DateEnd Date Alden Wheeler MD [address] [place] [phone] PCP - GeneralInternal Medicine12/18/22Team MemberRelationshipSpecialtyStart Date End Date Alden Wheeler MD [address] [place] [facility] [phone] PCP - GeneralInternal Medicine12/18/22Team MemberRelationshipSpecialtyStart Date End Date Alden Wheeler MD [address] [place] [facility] [place] [address] PCP - GeneralInternal Medicine12/18/22Team MemberRelationshipSpecialtyStart Date End Date Alden Wheeler MD [address] [place] [facility] [address] PCP - GeneralInternal Medicine12/18/22 Team Status: Active Member Role Status Dates Alden Wheeler DO Primary Care Provide r, Attending Provider Active Start: June 09, 2024 Team Status: Inactive Member Role Status Dates Alden Wheeler DO Primary Care Provide r, Attending Provider Active Start: June 17, 2024 End: June 17, 2024Team MemberRelationshipSpecialtyStart DateEnd Date Alden Wheeler MD [address] [place] [facility] [place] [address] PCP - GeneralInternal Medicine12/18/22am MemberRelationshipSpecialtyStart Date End Date Alden Wheeler MD [address] [place] [facility] [place] [address] PCP - GeneralInternal Medicine12/18/22am MemberRelationshipSpecialtyStart Date End Date Alden Wheeler MD [address] [place] [facility] [place] [address] PCP - GeneralInternal Medicine12/18/22am MemberRelationshipSpecialtyStart Date End Date Alden Wheeler MD [address] [place] [facility] [place] [id number] PCP - GeneralInternal Medicine12/18/22am MemberRelationshipSpecialtyStart Date End Date Alden Wheeler MD [address] [place] [address] PCP - GeneralInternal Medicine12/18/22am MemberRelationshipSpecialtyStart Date End Date Alden Wheeler MD [address] [place] [facility] [place] [address] PCP - GeneralInternal Medicine12/18/22am MemberRelationshipSpecialtyStart Date End Date Alden Wheeler MD [address] [place] [facility] [place] [address] PCP - GeneralInternal Medicine12/18/22Team MemberRelationshipSpecialtyStart Date End Date Alden Wheeler MD [address] [place] [facility] [place] [address] PCP - GeneralInternal Medicine12/18/22Team MemberRelationshipSpecialtyStart Date End Date Alden Wheeler MD [address] [place] [facility] [place] [address] PCP - GeneralInternal Medicine12/18/22Team MemberRelationshipSpecialtyStart Date End Date Alden Wheeler MD [address] [place] [facility] [place] [address] PCP - GeneralInternal Medicine12/18/22am MemberRelationshipSpecialtyStart Date End Date Alden Wheeler MD [address] [place] [facility] [place] [address] PCP - GeneralInternal Medicine12/18/22Team MemberRelationshipSpecialtyStart Date End Date Alden Wheeler MD [address] [place] [facility] [place] [address] PCP - GeneralInternal Medicine12/18/22Team MemberRelationshipSpecialtyStart Date End Date Alden Wheeler MD [address] [place] [facility] [place] [address] PCP - GeneralInternal Medicine12/18/22Team MemberRelationshipSpecialtyStart Date End Date Alden Wheeler DO [address] [facility] [place] [address] PCP - General02/10/17Team MemberRelationshipSpecialtyStart DateEnd Date Alden Wheeler DO [address] [facility], [place] [phone] PCP - General02/10/17Team MemberRelationshipSpecialtyStart DateEnd Date Alden Wheeler MD [address] [place] [facility] [place] [phone] PCP - GeneralInternal Medicine12/18/22Team MemberRelationshipSpecialtyStart Date End Date Alden Wheeler MD [address] [place] [facility] [place] [address] PCP - GeneralInternal Medicine11/18/24Team MemberRelationshipSpecialtyStart Date End Date Alden Wheeler MD [address] [place] [facility] [place] [address] PCP - GeneralInternal Medicine11/18/24Team MemberRelationshipSpecialtyStart Date End Date Alden Wheeler MD [address] [place] [facility] [place] [address] PCP - GeneralInternal Medicine11/18/24 Team Status: Inactive Member Role Status Dates Alden Wheeler DO Primary Care Provide r, Attending Provider Active Start: November 23, 2024 End: November 23, 2024Team MemberRelationshipSpecialtyStart DateEnd Date Alden Wheeler DO [address] [place] [facility] [place] [address] PCP - GeneralInternal Medicine11/18/24Team MemberRelationshipSpecialtyStart Date End Date Alden Wheeler DO [address] [place] [facility] [place] [address] PCP - GeneralInternal Medicine11/18/24Team MemberRelationshipSpecialtyStart Date End Date Alden Wheeler, DO [address] [place] [address] PCP - GeneralInternal Medicine11/18/24Team MemberRelationshipSpecialtyStart Date End Date Alden Wheeler, DO [address] [place] [facility] [place] [address] PCP - GeneralInternal Medicine11/18/24Team MemberRelationshipSpecialtyStart Date End Date Alden Wheeler, DO [address] [place] [address] PCP - GeneralInternal Medicine11/18/24Team MemberRelationshipSpecialtyStart Date End Date Alden Wheeler, DO [address] [place] [facility] [place] [address] PCP - GeneralInternal Medicine11/18/24Team MemberRelationshipSpecialtyStart Date End Date Alden Wheeler, DO [address] [place] [address] PCP - GeneralInternal Medicine11/18/24Team MemberRelationshipSpecialtyStart Date End Date Alden Wheeler, DO [address] [place] [facility] [place] [address] PCP - GeneralInternal Medicine11/18/24Team MemberRelationshipSpecialtyStart Date End Date Alden Wheeler, DO [address] [place] [facility] [phone] PCP - GeneralInternal Medicine11/18/24Team MemberRelationshipSpecialtyStart Date End Date Alden Wheeler, DO [address] [place] [facility] [place] [address] PCP - GeneralInternal Medicine11/18/24Team MemberRelationshipSpecialtyStart Date End Date Alden Wheeler, DO [address] [place] [address] PCP - GeneralInternal Medicine11/18/24Team MemberRelationshipSpecialtyStart Date End Date Alden Wheeler DO [address] [place] [place] [address] PCP - GeneralInternal Medicine11/18/24Team MemberRelationshipSpecialtyStart Date End Date Alden Wheeler, DO PCP - GeneralInternal Medicine Alden Wheeler, DO [address] [place] [address] PCP - GeneralInternal Medicine11/18/24Te MemberRelationshipSpecialtyStart Date End Date Alden Wheeler, DO [address] [place] [facility] [address] PCP - GeneralInternal Medicine11/18/24 REASON FOR VISIT (unrecogniz ed section and content) ReasonCommentsPainReasonCommentsInjectionsReasonCommentsFollow-upReasonOnset TndmUrflvfryoyzlgpdnl50/06/2024ReasonCommentsMed Change RequestReasonOnset Date CommentsMed Irtyur06/31/2025ReasonOnset DateCommentsMed Izzspe6909/07/2024Reason CommentsRectal BleedingBlood in stool, last colon 02/12/1771-mjtezc-34 year recall, referred by Dr. MarcusCommentsMed RefillReasonCommentsPainReasonComments PainPost-opReasonCommentsEye ExamGlaucomaReasonCommentsPost-opReasonComments GlaucomaReasonCommentsPost-opL RA TKA 12/01/24ReasonOnset DateCommentsMed Refill 06/03/2025 INFORMATION SOURCE (unrecogn ized section and content) DATE CREATED AUTHOR 12/12/2022 [facility] DATE CREATED AUTHOR AUTHOR'S ORGANIZ ATION 12/07/2023 [facility] DATE CREATED AUTHOR AUTHOR'S ORGANIZ ATION 05/15/2024 [facility] DATE CREATED AUTHOR AUTHOR'S ORGANIZ ATION 05/16/2024 [facility] DATE CREATED AUTHOR AUTHOR'S ORGANIZ ATION 11/19/2024 [facility] DATE CREATED AUTHOR AUTHOR'S ORGANIZ ATION 12/03/2024 [facility] DATE CREATED AUTHOR AUTHOR'S ORGANIZ ATION 12/04/2024 [facility] DATE CREATED AUTHOR AUTHOR'S ORGANIZ ATION 12/06/2024 [facility] DATE CREATED AUTHOR AUTHOR'S ORGANIZ ATION 04/15/2025 [facility] DATE CREATED AUTHOR AUTHOR'S ORGANIZ ATION 06/02/2025 [facility] Goals (unrecognized section and content) Goals may [...] BE BASED ON THE PRIMARY CLINICAL RECORDS. [employer] [facility]. provides no warranty or guarantee of the accuracy or completeness of information in this document.
== END 2025-07-01 07:55 | disposition home or self-care (01) ==
LOC: RAD 07:55
PROVIDERS: Visit Provider Internal Medicine
DX: M85.88 Other specified disorders of bone density and structure, other site (principal); M81.0 Age-related osteoporosis without current pathological fracture
CPT/HCPCS: 77080